=== PATIENT | female | born 1980 | race Caucasian/White ===

== ENCOUNTER → 2016-07-18 | Outpatient (CLI) | payer SELFPAY ==
[~2016-07-18] MED LIST: ACHD5005 PO; AMOX500C2 PO; ANTIDEPRESSANT; CLIN300C3 PO; CLON0.5T PO; CYCL10TA9 PO; KETO75CA PO; MUSCLE RELAXER; NAPR-243 PO; NITR-65 PO; ONDA8TAB9 PO; ONDAN4ODT PO; ORPH100T PO; PREN1TAB39 PO; PRM25T PO; TRAM50TA2 PO; TRM50T PO; [UNRECOGNIZED DRUG - REMARK]
--- NOTE | 2016-07-18 08:21 | Diagnostic Imaging Report ---
PROCEDURE: US abdomen complete. TECHNIQUE: Multiple real-time grayscale images were obtained over the abdomen in various projections. INDICATION: Right upper quadrant pain. FINDINGS: The pancreas is largely obscured by bowel gas. The liver is fairly homogeneous with no focal lesion seen. Hepatopetal flow in the portal vein is noted. The gallbladder demonstrates no stones or wall thickening. No pericholecystic fluid. The CBD is 5 mm in caliber. The spleen is 11.6 cm in length. The abdominal aorta and IVC are normal in caliber. The right kidney is 11.5 and the left kidney is 11.9 cm in length. No hydronephrosis. There is no fluid collection or ascites seen. IMPRESSION: Unremarkable exam. Dictated by: Dictated on workstation # [id number]
== END ==
LOC: RAD 07:26
PROVIDERS: ATTEND Nurse Practitioner Family
DX: R10.11 Right upper quadrant pain (principal)
CPT/HCPCS: 76700

== ENCOUNTER 2018-05-09 01:18 | Emergency (ER) | payer SELFPAY ==
[~2018-05-09] VITALS: Ht 172.7 cm; Wt 104.3 kg
--- OUTSIDE RECORDS SUMMARY | 2018-05-09 01:24 | XMS REPORT ---
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 78665624 Problem Major depressive disorder, recurrent, moderate F33.1 Active 745616815 Problem Panic disorder F41.0 Active 144239608 Problem Chronic migraine without aura without status migrainosus, not intractable G43.709 Active 189813887 Problem Affective disorder F39 Active 05387340 Problem Anxiety state, unspecified F41.1 Active 600303600 ALLERGIES No Information SOCIAL HISTORY Never Assessed PLAN OF CARE VITAL SIGNS MEDICATIONS No Known Medications RESULTS No Results PROCEDURES No Known procedures IMMUNIZATIONS No Known Immunizations MEDICAL (GENERAL) HISTORY Type Description Date Medical History asthma Medical History headache Medical History anemia Medical History sciatica Medical History Controlled Violation [facility] 2014 Medical History "post seizure" Surgical History appendectomy 11/2013 Surgical History tubal ligation 06/2012 Surgical History section x2 Surgical History dental surgery for jock jaw 2006
--- OUTSIDE RECORDS SUMMARY | 2018-05-09 01:24 | XMS REPORT ---
Author Author Mima Miller Organization [facility] Address [address] [place] [address] Care Team Providers Care Supervisor Pipeline Maintenance Name Role Phone Mima Miller Unavailable PROBLEMS Unknown Problems ALLERGIES Substance Reaction Event Type Date Status seasonal Unknown Non Drug Allergy Nov, Active ENCOUNTERS Encounter Location Date Diagnosis [facility] [address], [place] [id number] Nov, Syncope, unspecified syncope type R55 IMMUNIZATIONS No Known Immunizations SOCIAL HISTORY Never Assessed REASON FOR VISIT Physical PLAN OF CARE Activity Details Follow Up prn Reason: VITAL SIGNS Respiratory Rate 16 /min 2017-12-04 Temperature 98.4 degrees Fahrenheit 2017-12-04 BMI 35.73 kg/m2 2017-12-04 Height 68 in 2017-12-04 Weight 235 lbs 2017-12-04 Blood pressure systolic 116 mm Hg 2017-12-04 Blood pressure diastolic 76 mm Hg 2017-12-04 MEDICATIONS No Known Medications RESULTS No Results PROCEDURES Procedure Date Ordered Result Body Site ECG RECORDING 2017-12-04 sinus tach, HR 105 ELECTROCARDIOGRAM COMPLETE ELECTROCARDIOGRAM, ROUTINE ECG WITH AT LEAST 12 LEADS; WITH INTERPRETATION AND REPORT Dec 04, 2017 INSTRUCTIONS MEDICATIONS ADMINISTERED No Known Medications MEDICAL (GENERAL) HISTORY Type Description Date Surgical History c section x 2 Surgical History appendectomy Surgical History lock jaw - tooth extraction Hospitalization History child x 2
--- OUTSIDE RECORDS SUMMARY | 2018-05-09 01:24 | XMS REPORT ---
Author Author JUAN CARLOS CONDE Organization Unknown Address [address] [place] [address] Care Team Providers Care Single Pass Soil Stabilizer Operator Name Role Phone MARGARET BOWEN Unavailable AIMEEPAULAMAIAEN Unavailable Problems Problem SNOMED Onset Date Resolved Date Status Review of medication 184055237 Active Mental health impairment 901330612 Active Recurrent major depressive episodes, moderate 165335787 Active Anxiety disorder 581506693 Active Allergies, Adverse Reactions NA Care Plan Goal Instructions Client will be functioning more independently with supports and have a life worth living. Engage with treatment team to build rapport. Learn and practice coping skills to reduce symptoms and improve functioning. The following Services will be utilized 1 - 3 times until goal is reached: Improve and maintain functioning through medical psychiatric services. Initial Psychiatric Evaluation, Ongoing medication monitoring and management, Case Conference with multidisciplinary members of the [facility] team as indicated, and/or Collaboration and coordination with outside medical providers as indicated by providing the following services: 10453 interactive complexity 88630 psychiatric diagnostic eval w/ meds 84297 30 min psychotherapy add-on 17176 45 [place] [address] 60 min psychotherapy add-on 18326 med injection 61735 New Patient E&M (level 1) 67564 New Patient E&M (level 2) 55327 New Patient E&M (level 3) 84572 New patient E& M (level 4) 39661 New Patient E&M (level 5) 19272 Established Patient E&M ( level 1) 16246 Established Patient E&M (level 2) 32132 Established Patient E&M (level 3) 37318 Established Patient E&M (level 4) 20695 Established Patient E& M (level 5) 9935x prolonged service code 96084 case conference w/o clt & fam w / [place] 97121 case conference w/o shukri espinoza/ H0038 Peer Support Karlene Medications Medication Code Dose,Form,Route,Freq Start Date End Date KEEP ELHAM LEWIS...NO CLARISA, CECY, OR STIM FLUoxetine HCl - 10 MG ORAL Capsule 978541 Take one (1) Capsule Daily Divalproex Sodium - 250 MG ORAL Tablet, Delayed Release 6063326 Take one (1) Tablet, Delayed Release Twice a Day clonazePAM - 0.5 MG ORAL Tablet 045810 Take one (1) Tablet Once a Day, As Necessary Lab Results NA Encounters Date Time Service Code Provider 01:37:00 pm JUAN CARLOS CONDE 02:57:00 pm JUAN CARLOS CONDE Family History Functional Status NA Immunizations NA Vital Signs Date Time BP Pulse Temp Height Weight BMI 02:06:00 pm 126 over 85 76 bpm 68 in 222 lbs 33.8 kg/m^2 Social History Date Smoking Status SNOMED Code Never Smoked [id number] Hospital Discharge Instructions NA Hospital Discharge medications Date Medication Dose, Form, Route, Freq Code KEEP ELHAM LEWIS...NO CLARISA, CECY, OR STIM Instructions * Not Applicable Procedures NA Purpose Electronic Copy
--- OUTSIDE RECORDS SUMMARY | 2018-05-09 01:24 | XMS REPORT ---
Author Author JUAN CARLOS CONDE Organization Unknown Address [address] [place] [address] Care Team Providers Care Plier Worker Name Role Phone MARGARET BOWEN Unavailable ELTONVICKIJUAN CARLOS Unavailable Problems Problem SNOMED Onset Date Resolved Date Status Review of medication 231478072 Active Mental health impairment 981056777 Active Recurrent major depressive episodes, moderate 572561532 Active Anxiety disorder 199607678 Active Allergies, Adverse Reactions NA Care Plan Goal Instructions Client will be functioning more independently with supports and have a life worth living. ADULT CASE MANAGEMENT SERVICE BUNDLE - Provide the following services 1-3 times each week: + 27489 Case Conf w/Clt nn-Physician + 44007 Case Conf w/o clt + family w/MD + 69187 Case Conf no Clt, no MD, w/QMHP + [id number] CPST Adult + [id number] Strength Based Case Client will be functioning more independently with supports and have a life worth living. ADULT CASE MANAGEMENT SERVICE BUNDLE - Provide the following services 1-3 times each week: + 53311 Case Conf w/Clt nn-Physician + 50309 Case Conf w/o clt + family w/MD + 81890 Case Conf no Clt, no MD, w/QMHP + [id number] CPST Adult + [id number] Strength Based Case Mgmt + T1017 TCM - Targeted Case Management Improve and maintain functioning through medical psychiatric services. Initial Psychiatric Evaluation, Ongoing medication monitoring and management , Case Conference with multidisciplinary members of the [facility] team as indicated, and/or Collaboration and coordination with outside medical providers as indicated by providing the following services: 40782 interactive complexity 83994 psychiatric diagnostic eval w/ meds 77481 30 min psychotherapy add-on 08944 45 [place] [address] 60 min psychotherapy add-on 86366 med injection 93513 New Patient E&M (level 1) 37173 New Patient E&M (level 2) 02764 New Patient E&M (level 3) 82794 New patient E&M (level 4) 61928 New Patient E&M (level 5) 65056 Established Patient E&M (level 1) 61383 Established Patient E&M (level 2) 76674 Established Patient E&M (level 3) 83353 Established Patient E&M (level 4) 42736 Established Patient E&M (level 5 ) 9935x prolonged service code 07013 case conference w/o clt & fam w/ 14466 case conference w/o shukri w/ H0038 Peer Support Karlene Medications Medication Code Dose,Form,Route,Freq Start Date End Date KEEP KLON LOW...NO CLARISA, CECY, OR STIM FLUoxetine HCl - 10 MG ORAL Capsule 250312 Take one (1) Capsule Daily Divalproex Sodium - 250 MG ORAL Tablet, Delayed Release 4220841 Take one (1) Tablet, Delayed Release Twice a Day clonazePAM - 0.5 MG ORAL Tablet 19740514 Take one (1) Tablet Once a Day, As Necessary FLUoxetine HCl - 20 MG ORAL Capsule 172825 Take one (1) Capsule Daily Divalproex Sodium - 250 MG ORAL Tablet, Delayed Release 5588287 Take three (3) Tablets, Delayed Release At Bedtime clonazePAM - 0.5 MG ORAL Tablet 599690 Take one (1) Tablet Twice a Day, As Necessary Divalproex Sodium - 250 MG ORAL Tablet, Delayed Release 8692564 Take three (3) Tablets, Delayed Release At Bedtime clonazePAM - 0.5 MG ORAL Tablet 650112 Take one (1) Tablet Three Times a Day, As Necessary Lab Results NA Encounters Date Time Service Code Provider 01:37:00 pm JUAN CARLOS CONDE 02:57:00 pm JUAN CARLOSMAUREEN BILLMICHELL Family History Functional Status NA Immunizations NA Vital Signs Date Time BP Pulse Temp Height Weight BMI 03:24:00 pm 123 over 84 82 bpm 215 lbs 05:23:00 pm 121 over 85 105 bpm 02:06:00 pm 126 over 85 76 bpm 68 in 222 lbs 33.8 kg/m^2 Social History NA Hospital Discharge Instructions NA Hospital Discharge medications Date Medication Dose, Form, Route, Freq Code KEEP KLON LOW...NO CLARISA, CECY, OR STIM Instructions * Not Applicable Procedures Date Procedure Code Type Code Provider Volatile drug screen (procedure) SNOMED CT 115905200 Purpose Electronic Copy
--- OUTSIDE RECORDS SUMMARY | 2018-05-09 01:24 | XMS REPORT ---
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 62614107 Problem Major depressive disorder, recurrent, moderate F33.1 Active 044257460 Problem Panic disorder F41.0 Active 054087413 Problem Chronic migraine without aura without status migrainosus, not intractable G43.709 Active 641416086 Problem Affective disorder F39 Active 78049519 Problem Anxiety state, unspecified F41.1 Active 700486867 ALLERGIES Substance Reaction Event Type Date Status Doxepin HCl Unknown Drug Allergy Apr, Active Abilify Unknown Drug Allergy Apr, Active SOCIAL HISTORY No smoking Hx information available PLAN OF CARE Activity Details Follow Up 4 Weeks Reason:pierson/pain VITAL SIGNS Height 67 in 2016-04-25 Weight 219.1 lbs 2016-04-25 Temperature 99.5 degrees Fahrenheit 2016-04-25 Heart Rate 90 bpm 2016-04-25 Respiratory Rate 20 2016-04-25 BMI 34.31 kg/m2 2016-04-25 Blood pressure systolic 118 mmHg 2016-04-25 Blood pressure diastolic 84 mmHg 2016-04-25 MEDICATIONS Medication Instructions Dosage Frequency Start Date End Date Duration Status Indomethacin 25 MG Orally Twice a day 1 capsule with food or milk 12h Apr, Active Topamax 50 mg Orally Twice a day 1/2 tablet bid x 7 days then 1 am and 1/2 pm x 7 days then 1 bid 12h Apr, 30 day(s) Active RESULTS Name Result Date Reference Range TSH 2016-04-25 TSH 1.020 0.450-4.500 CBC 2016-04-25 WBC 5.8 3.4-10.8 RBC 4.74 3.77-5.28 Hemoglobin 11.2 11.1-15.9 Hematocrit 37.4 34.0-46.6 MCV 79 79-97 MCH 23.6 26.6-33.0 MCHC 29.9 31.5-35.7 RDW 14.5 12.3-15.4 Platelets 328 150-379 Neutrophils 66 Lymphs 25 Monocytes 7 Eos 1 Basos 1 Neutrophils (Absolute) 3.8 1.4-7.0 Lymphs (Absolute) 1.5 0.7-3.1 Monocytes(Absolute) 0.4 0.1-0.9 Eos (Absolute) 0.0 0.0-0.4 Baso (Absolute) 0.0 0.0-0.2 Immature Granulocytes 0 Immature Grans (Abs) 0.0 0.0-0.1 ESR/SED RATE 2016-04-25 Sedimentation Rate-Westergren 11 0-32 CRP 2016-04-25 C-Reactive Protein, Quant 2.8 0.0-4.9 CMP 2016-04-25 Glucose, Serum 110 65-99 BUN 10 6-20 Creatinine, Serum 0.75 0.57-1.00 eGFR If NonAfricn Am 104 >59 eGFR If Africn Am 120 >59 BUN/Creatinine Ratio 13 8-20 Sodium, Serum 139 134-144 Potassium, Serum 4.2 3.5-5.2 Chloride, Serum 100 96-106 Carbon Dioxide, Total 22 18-29 Calcium, Serum 9.0 8.7-10.2 Protein, Total, Serum 7.0 6.0-8.5 Albumin, Serum 4.4 3.5-5.5 Globulin, Total 2.6 1.5-4.5 A/G Ratio 1.7 1.1-2.5 Bilirubin, Total <0.2 0.0-1.2 Alkaline Phosphatase, S 53 39-117 AST (SGOT) 12 0-40 ALT (SGPT) 9 0-32 Xray : Spine, Lumbar 2-3 views (IN HOUSE) 2016-04-25 Xray : Knee, Right 3 views (IN HOUSE) 2016-04-25 PROCEDURES Procedure Date Ordered Related Diagnosis Body Site X-RAY EXAM OF LOWER SPINE Apr 25, 2016 X-RAY EXAM OF KNEE, 3 Apr 25, 2016 Office Visit, Est Pt., Level 4 Apr 25, 2016 C-REACTIVE PROTEIN Apr 25, 2016 VENIPUNCT, ROUTINE* Apr 25, 2016 COMPLETE CBC W/AUTO DIFF WBC Apr 25, 2016 COMPREHEN METABOLIC PANEL Apr 25, 2016 RBC SED RATE, AUTOMATED Apr 25, 2016 ASSAY THYROID STIM HORMONE Apr 25, 2016 IMMUNIZATIONS No Known Immunizations
--- OUTSIDE RECORDS SUMMARY | 2018-05-09 01:24 | XMS REPORT ---
Author Author JUAN CARLOS CONDE [facility] Address [address] [place] [address] Care Team Providers Care Equipment Sterilizer Name Role Phone MARGARET BOWEN Unavailable LINDSAY POWERS Unavailable JUAN CARLOS CONDE Unavailable Problems Problem SNOMED Onset Date Resolved Date Status Review of medication 537969408 Active Mental health impairment 653674237 Active Recurrent major depressive episodes, moderate 184695771 Active Anxiety disorder 373025285 Active Adjustment disorder with anxious mood 41108996 Active Allergies, Adverse Reactions NA Care Plan Goal Instructions Client will be functioning more independently with supports and have a life worth living. ADULT THERAPY SERVICE BUNDLE - Provide the following services 1-3 times each week: + 40642 Psychotherapy, 16-37 Minutes + 68282 Psychotherapy, 38-52 Minutes + 64540 Psychotherapy, 53+ Minutes + 85460 Psychotherapy for Crisis 31-74 Minutes + 99190 Each Add'l 30 Min Crisis Psychotherapy + 63360 Group Therapy + 62001 Case Conf w/Clt NN-Physician + 10009 Case Conf w/o Clt + Fam w/MD + 78304 Case Conf w/o Clt w/MD Client will be functioning more independently with supports and have a life worth living. This will be done through Cognitive Behavioral Therapy, Behavioral Activation Therapy, Motivational Interviewing, Wellness Self Management, Solution-Focused Therapy, and Dialectical Behavior Therapy, and other evidence-based treatments. The following services will be utilized one to two times per week to assist client in achieving goal(s): Client will be functioning more independently with supports and have a life worth living. ADULT THERAPY SERVICE BUNDLE - Provide the following services 1-3 times each week: + 70246 Psychotherapy, 16-37 Minutes + 67282 Psychotherapy, 38-52 Minutes + 59876 Psychotherapy, 53+ Minutes + 42224 Psychotherapy for Crisis 31-74 Minutes + 06485 Each Add'l 30 Min Crisis Psychotherapy + 78098 Group Therapy + 81750 Case Conf w/Clt NN-Physician + 46800 Case Conf w/o Clt + Fam w/MD + 97959 Case Conf w/o Clt w/MD + [id number] Psychosocial Adult Group + T1017 TCM - Targeted Case Management Improve and maintain functioning through medical psychiatric services. Initial Psychiatric Evaluation, Ongoing medication monitoring and management , Case Conference with multidisciplinary members of the [facility] team as indicated, and/or Collaboration and coordination with outside medical providers as indicated by providing the following services: 84090 interactive complexity 14925 psychiatric diagnostic eval w/ meds 21463 30 min psychotherapy add-on 21717 45 [place] [address] 60 min psychotherapy add-on 28745 med injection 05380 New Patient E&M (level 1) 13459 New Patient E&M (level 2) 33570 New Patient E&M (level 3) 22805 New patient E&M (level 4) 17729 New Patient E&M (level 5) 20633 Established Patient E&M (level 1) 07323 Established Patient E&M (level 2) 75237 Established Patient E&M (level 3) 64548 Established Patient E&M (level 4) 49656 Established Patient E&M (level 5 ) 9935x prolonged service code 29082 case conference w/o shukri & eva espinoza/ 69520 case conference w/o shukri w/ H0038 Peer Support Karlene Medications Medication Code Dose,Form,Route,Freq Start Date End Date KEEP KLON LOW...NO CLARISA, CECY, OR STIM FLUoxetine HCl - 10 MG ORAL Capsule 258504 Take one (1) Capsule Daily Divalproex Sodium - 250 MG ORAL Tablet, Delayed Release 6373511 Take one (1) Tablet, Delayed Release Twice a Day clonazePAM - 0.5 MG ORAL Tablet 691414 Take one (1) Tablet Once a Day, As Necessary FLUoxetine HCl - 20 MG ORAL Capsule 533301 Take one (1) Capsule Daily Divalproex Sodium - 250 MG ORAL Tablet, Delayed Release 5593279 Take three (3) Tablets, Delayed Release At Bedtime clonazePAM - 0.5 MG ORAL Tablet 077854 Take one (1) Tablet Twice a Day, As Necessary Divalproex Sodium - 250 MG ORAL Tablet, Delayed Release 7321228 Take three (3) Tablets, Delayed Release At Bedtime clonazePAM - 0.5 MG ORAL Tablet 19740514 Take one (1) Tablet Three Times a [...] Date Smoking Status SNOMED Code Never Smoked 846193878 Hospital Discharge Instructions NA Hospital Discharge medications Date Medication Dose, Form, Route, Freq Code KEEP KLON LOW...NO CLARISA, CECY, OR STIM Instructions * Not Applicable Procedures Date Procedure Code Type Code Provider Volatile drug screen (procedure) SNOMED CT 396350472 Purpose Electronic Copy
--- OUTSIDE RECORDS SUMMARY | 2018-05-09 01:24 | XMS REPORT | Clinical Summary ---
Author Author [facility] Organization [facility] Address Unknown Phone Unavailable Care Team Providers Care Vice President Sales And Marketing Name Role Phone PCP Unavailable Allergies No Known Allergies Current Medications Prescription Sig. Disp. Refills Start End Date Status Date albuterol (PROVENTIL HFA) Inhale 2 puffs every 6 Active 90 mcg/actuation HFA (six) hours as needed for inhaler wheezing. Active Problems No known active problems Social History Tobacco Use Types Packs/Day Years Used Date Never Smoker Smokeless Tobacco: Never Used Alcohol Use Drinks/Week oz/Week Comments Yes socially Sex Assigned at Date Recorded Not on file Last Filed Vital Signs Vital Sign Reading Time Taken Blood Pressure 147/82 09/23/2017 7:49 PM CDT Pulse 87 09/23/2017 7:49 PM CDT Temperature 36.8 C (98.3 F) 09/23/2017 7:49 PM CDT Respiratory Rate 16 09/23/2017 5:50 PM CDT Oxygen Saturation 100% 09/23/2017 7:49 PM CDT Inhaled Oxygen - - Concentration Weight 99.8 kg (220 lb) 09/02/2017 9:48 PM CDT Height 172.7 cm (5' 8") 09/02/2017 9:48 PM CDT Body Mass Index 33.45 09/02/2017 9:48 PM CDT Plan of Treatment Health Maintenance Due Date Last Done Comments Td # 1981 Cervical Cancer Screening 2002 via Pap Smear Influenza Vaccine (#1) 2018 Results Not on filefrom Last 3 Months
--- OUTSIDE RECORDS SUMMARY | 2018-05-09 01:24 | XMS REPORT ---
Author Author JUAN CARLOS CONDE Organization Unknown Address [address] [place] [address] Care Team Providers Care Ob Nurse Name Role Phone MARGARET BOWEN Unavailable AIMEEPAULAMAIAEN Unavailable Problems Problem SNOMED Onset Date Resolved Date Status Review of medication 370586358 Active Mental health impairment 712501980 Active Recurrent major depressive episodes, moderate 824727615 Active Anxiety disorder 768511600 Active Allergies, Adverse Reactions NA Care Plan [...] as indicated by providing the following services: 81984 interactive complexity 57387 psychiatric diagnostic eval w/ meds 22372 30 min psychotherapy add-on 17457 45 [place] [address] 60 min psychotherapy add-on 97630 med injection 61614 New Patient E&M (level 1) 42131 New Patient E&M (level 2) 99433 New Patient E&M (level 3) 70762 New patient E& M (level 4) 88401 New Patient E&M (level 5) 44379 Established Patient E&M ( level 1) 36736 Established Patient E&M (level 2) 84806 Established Patient E&M (level 3) 65828 Established Patient E&M (level 4) 41464 Established Patient E& M (level 5) 9935x prolonged service code 73662 case conference w/o clt & fam w / [place] [address] case conference w/o clt alexis/ H0038 Peer Support Karlene Date Time Service Provider Location 05:30:00 pm [facility]SE[facility] 130 Medications Medication Code Dose,Form,Route,Freq Start Date End Date KEEP KLON LOW...NO CLARISA, CECY, OR STIM FLUoxetine HCl - 10 MG ORAL Capsule 873052 Take one (1) Capsule Daily Divalproex Sodium - 250 MG ORAL Tablet, Delayed Release 8690966 Take one (1) Tablet, Delayed Release Twice a Day clonazePAM - 0.5 MG ORAL Tablet 135257 Take one (1) Tablet Once a Day, As Necessary FLUoxetine HCl - 20 MG ORAL Capsule 241428 Take one (1) Capsule Daily Divalproex Sodium - 250 MG ORAL Tablet, Delayed Release 4450742 Take three (3) Tablets, Delayed Release At Bedtime clonazePAM - 0.5 MG ORAL Tablet 200634 Take one (1) Tablet Twice a Day, As Necessary Lab Results NA Encounters Date Time Service Code Provider 01:37:00 pm JUAN CARLOS CONDE 02:57:00 pm JUAN CARLOS CONDE Family History Functional Status NA Immunizations NA Vital Signs Date Time BP Pulse Temp Height Weight BMI 05:23:00 pm 121 over 85 105 bpm 02:06:00 pm 126 over 85 76 bpm 68 in 222 lbs 33.8 kg/m^2 Social History Date Smoking Status SNOMED Code Never Smoked 581264027 Hospital Discharge Instructions NA Hospital Discharge medications Date Medication Dose, Form, Route, Freq Code KEEP KLON LOW...NO CLARISA, CECY, OR STIM Instructions * Not Applicable Procedures Date Procedure Code Type Code Provider Volatile drug screen (procedure) SNOMED CT [id number] Purpose Electronic Copy
--- OUTSIDE RECORDS SUMMARY | 2018-05-09 01:25 | XMS REPORT ---
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 Active 85647982 Problem Major depressive disorder, recurrent, moderate F33.1 Active 233213018 Problem Panic disorder F41.0 Active 645424036 Problem Chronic migraine without aura without status migrainosus, not intractable G43.709 Active 778940491 Problem Affective disorder F39 Active 66529557 Problem Anxiety state, unspecified F41.1 Active 140630164 ALLERGIES Substance Reaction Event Type Date Status Topamax Unknown Drug Allergy May, Active Doxepin HCl Unknown Drug Allergy May, Active Abilify Unknown Drug Allergy May, Active SOCIAL HISTORY Never Assessed PLAN OF CARE Activity Details Follow Up 4 Weeks Reason: VITAL SIGNS Height 67.7 in 2016-05-13 Weight 225.0 lbs 2016-05-13 Heart Rate 68 bpm 2016-05-13 Respiratory Rate 20 2016-05-13 BMI 34.51 kg/m2 2016-05-13 Blood pressure systolic 139 mmHg 2016-05-13 Blood pressure diastolic 75 mmHg 2016-05-13 MEDICATIONS Medication Instructions Dosage Frequency Start Date End Date Duration Status Indomethacin 25 MG Orally Twice a day 1 capsule with food or milk 12h Apr, Active Latuda 40 mg Orally Once a day 1 tablet with food 24h May, 30 day(s) Active RESULTS Name Result Date Reference Range URINE DRUG SCREEN (IN HOUSE) 2016-05-13 Lot # [id number] Exp date Control + COCAINE Negative AMPH Negative MTD Negative THC Negative OPIATE Negative BENZO Positive PCP Negative BAR Negative OXY Negative MAMP Negative TCA Negative BUP Negative MDMA Negative LIPID PANEL 2016-05-13 Cholesterol, Total 193 100-199 Triglycerides 140 0-149 HDL Cholesterol 50 >39 VLDL Cholesterol Johnson 28 5-40 LDL Cholesterol Calc 115 0-99 Comment: PROCEDURES Procedure Date Ordered Result Body Site DRUG TEST PRSMV DIR OPT OBS May 13, 2016 LIPID PANEL May 13, 2016 VENIPUNCT, ROUTINE* May 13, 2016 IMMUNIZATIONS No Known Immunizations MEDICAL (GENERAL) HISTORY Type Description Date Medical History asthma Medical History headache Medical History anemia Medical History sciatica Medical History Controlled Violation [facility] 2014 Medical History "post seizure" Surgical History appendectomy 11/2013 Surgical History tubal ligation 06/2012 Surgical History section x2 Surgical History dental surgery for jock jaw 2006
--- OUTSIDE RECORDS SUMMARY | 2018-05-09 01:25 | XMS REPORT ---
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
--- OUTSIDE RECORDS SUMMARY | 2018-05-09 01:25 | XMS REPORT ---
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 Active 01783008 Problem Major depressive disorder, recurrent, moderate F33.1 Active 852227555 Problem Panic disorder F41.0 Active 657592126 Problem Chronic migraine without aura without status migrainosus, not intractable G43.709 Active 417134027 Problem Affective disorder F39 Active 96128448 Problem Anxiety state, unspecified F41.1 Active 935429964 ALLERGIES No Known Allergies SOCIAL HISTORY No smoking Hx information available PLAN OF CARE Activity Details Follow Up prn Reason: VITAL SIGNS MEDICATIONS No Known Medications RESULTS No Results PROCEDURES Procedure Date Ordered Related Diagnosis Body Site Psychotherapy, patient &/family, 30 minutes, established patient Apr 15, 2016 IMMUNIZATIONS No Known Immunizations
--- OUTSIDE RECORDS SUMMARY | 2018-05-09 01:25 | XMS REPORT ---
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 Active 14713980 Problem Major depressive disorder, recurrent, moderate F33.1 Active 788442770 Problem Panic disorder F41.0 Active 808127911 Problem Chronic migraine without aura without status migrainosus, not intractable G43.709 Active 204251686 Problem Affective disorder F39 Active 03520166 Problem Anxiety state, unspecified F41.1 Active 685972631 ALLERGIES No Information SOCIAL HISTORY Never Assessed PLAN OF CARE VITAL SIGNS MEDICATIONS No Known Medications RESULTS No Results PROCEDURES No Known procedures IMMUNIZATIONS No Known Immunizations MEDICAL (GENERAL) HISTORY Type Description Date Medical History asthma Medical History headache Medical History anemia Medical History sciatica Medical History Controlled Violation [facility] 2014 Medical History "post seizure" Surgical History appendectomy 11/2013 Surgical History tubal ligation 06/2012 Surgical History section x2 Surgical History dental surgery for jock jaw 2006
--- OUTSIDE RECORDS SUMMARY | 2018-05-09 01:25 | XMS REPORT ---
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 Active 00930969 Problem Major depressive disorder, recurrent, moderate F33.1 Active 135774247 Problem Panic disorder F41.0 Active 123584290 Problem Chronic migraine without aura without status migrainosus, not intractable G43.709 Active 252782571 Problem Affective disorder F39 Active 91309045 Problem Anxiety state, unspecified F41.1 Active 259361676 ALLERGIES No Known Allergies SOCIAL HISTORY No smoking Hx information available PLAN OF CARE VITAL SIGNS MEDICATIONS Medication Instructions Dosage Frequency Start Date End Date Duration Status Latuda 40 mg Orally Once a day 1 tablet with food 24h May, 90 days Active RESULTS No Results PROCEDURES No Known procedures IMMUNIZATIONS No Known Immunizations
--- OUTSIDE RECORDS SUMMARY | 2018-05-09 01:28 | XMS REPORT | Continuity of Care Document ---
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 AN GEN ANXIETY 07/29/2011 JESSICA CABRERA PHD 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 07/29/2011 RICK ALBERTO, JESSICA Sabillon 300.02 AN GEN ANXIETY 07/29/2011 RICK ALBERTO, JESSICA Sabillon 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 07/29/2011 RICK ALBERTO, JESSICA A 300.02 AN GEN ANXIETY 07/29/2011 RICK ALBERTO, JESSICA A 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 07/29/2011 RICK ALBERTO, JESSICA A 300.02 AN GEN ANXIETY 07/29/2011 BRIANDA LOUIS APRN 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 07/29/2011 BRIANDA LOUIS APRN 300.02 AN GEN ANXIETY 07/29/2011 RICK ALBERTO, JESSICA A 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 07/29/2011 RICK ALBERTO, JESSICA A 300.02 AN GEN ANXIETY 07/29/2011 DOMINIC BAL MD 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 07/29/2011 DOMINIC BAL MD 300.02 AN GEN ANXIETY 07/29/2011 DOMINIC BAL MD 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 07/29/2011 DOMINIC BAL MD 300.02 AN GEN ANXIETY 07/29/2011 RICK ALBERTO, JESSICA Sabillon 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 07/29/2011 RICK ALBERTO, JESSICA A 300.02 AN GEN ANXIETY 07/29/2011 BRIANDA LOUIS APRN 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 07/29/2011 BRIANDA LOUIS APRN 300.02 AN GEN ANXIETY 07/29/2011 NORA LEONARDO DO K 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 07/29/2011 NORA LEONARDO DO K 300.02 AN GEN ANXIETY 07/29/2011 TREVOR LEONARDO DOA K 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 07/29/2011 NORA LEONARDO DO K 300.02 AN GEN ANXIETY 07/29/2011 NORA LEONARDO DO K 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 07/29/2011 NORA LEONARDO DO K 300.02 AN GEN ANXIETY 07/29/2011 BALTA PEDRAZA MD 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 07/29/2011 BALTA PEDRAZA MD 300.02 AN GEN ANXIETY 07/29/2011 JAVIER DE DIOS APRNETTE 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 07/29/2011 VA COOPER MISA 300.02 AN GEN ANXIETY 07/29/2011 VA COOPER MISA 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 07/29/2011 VA COOPER MISA 300.02 AN GEN ANXIETY 07/29/2011 JEREMIE ALEX DDS 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 07/29/2011 JEREMIE ALEX DDS 300.02 AN GEN ANXIETY 07/29/2011 VA COOPER MISA 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 07/29/2011 VA COOPER MISA 300.02 AN GEN ANXIETY 07/29/2011 VA COOPER MISA 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 07/29/2011 VA RIVERAN MISA 300.02 AN GEN ANXIETY 07/29/2011 MADL MUSIC JOURNALIST, DARIAN L 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 07/29/2011 MADL MUSIC JOURNALIST, DARIAN L 300.02 AN GEN ANXIETY 07/29/2011 LEONARDO DO, NORA K 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 07/29/2011 LEONARDO DO, NORA K 300.02 AN GEN ANXIETY 07/29/2011 LEONARDO DO, NORA K 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 07/29/2011 LEONARDO DO, NORA K 300.02 AN GEN ANXIETY 07/29/2011 LEONARDO DO, NORA K 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 07/29/2011 LEONARDO DO NORA K 300.02 AN GEN ANXIETY 07/29/2011 VA COOPER MISA 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 07/29/2011 VA COOPER MISA 300.02 AN GEN ANXIETY 07/29/2011 MADL MUSIC JOURNALIST, DARIAN L 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 07/29/2011 MADL MUSIC JOURNALIST, DARIAN L 300.02 AN GEN ANXIETY 07/29/2011 RICK PHD, JESSICA A 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 07/29/2011 RICK ALBERTO, JESSICA A 300.02 AN GEN ANXIETY 07/29/2011 MADL MUSIC JOURNALIST, DARIAN L 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 07/29/2011 MADL MUSIC JOURNALIST, DARIAN L 300.02 AN GEN ANXIETY 07/29/2011 VA COOPER MISA 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 07/29/2011 VA COOPER MISA 300.02 AN GEN ANXIETY 07/29/2011 RICK ALBERTO, JESSICA A 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 07/29/2011 RICK ALBERTO, JESSICA A 300.02 AN GEN ANXIETY 07/29/2011 VA COOPER MISA 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 07/29/2011 MISA DE DIOS APRN 300.02 AN GEN ANXIETY 07/29/2011 NATHALY HELTON APRNWNYA L 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 07/29/2011 XU HELTON APRNNYA L 300.02 AN GEN ANXIETY 07/29/2011 FREDERIC BARRIENTOS APRNINA R 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 07/29/2011 FLOYD COOPER ANGEL R 300.02 AN GEN ANXIETY 07/29/2011 XU HELTON APRNNYA L 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 07/29/2011 DANIE RIVREAMally DARIAN L 300.02 AN GEN ANXIETY 07/29/2011 MISA DE DIOS APRN 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 07/29/2011 MISA DE DIOS APRN 300.02 AN GEN ANXIETY 07/29/2011 DANIE COOPER DARIAN L 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 07/29/2011 EVASandor RIVERAMally DARIAN L 300.02 AN GEN ANXIETY 07/29/2011 MISA DE DIOS APRN 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 07/29/2011 MISA DE DIOS APRN 300.02 AN GEN ANXIETY 07/29/2011 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 07/29/2011 300.02 AN GEN ANXIETY 08/26/2011 BALBINA DELACRUZ APRN 462 Pharyngitis Acute 08/26/2011 BALBINA DELACRUZ APRN 724.2 BACK PAIN, LOWER 08/26/2011 462 Pharyngitis Acute 08/26/2011 724.2 BACK PAIN, LOWER 08/26/2011 462 Pharyngitis Acute 08/26/2011 724.2 BACK PAIN, LOWER 08/26/2011 462 Pharyngitis Acute 08/26/2011 724.2 BACK PAIN, LOWER 08/26/2011 462 Pharyngitis Acute 08/26/2011 724.2 BACK PAIN, LOWER 08/26/2011 462 Pharyngitis Acute 08/26/2011 724.2 BACK PAIN, LOWER 08/26/2011 462 Pharyngitis Acute 08/26/2011 724.2 BACK PAIN, LOWER 08/26/2011 JOAO ALBERT APRN A 462 Pharyngitis Acute 08/26/2011 JOAO ALBERT APRN A 724.2 BACK PAIN, LOWER 08/26/2011 BRIANDA LOUIS APRN 462 Pharyngitis Acute 08/26/2011 BRIANDA LOUIS APRN 724.2 BACK PAIN, LOWER 08/26/2011 RICK PHD, JESSICA A 462 Pharyngitis Acute 08/26/2011 BOERAVI PHD, JESSICA A 724.2 BACK PAIN, LOWER 08/26/2011 BOERAVI PHD, JESSICA A 462 Pharyngitis Acute 08/26/2011 BOERAVI PHD, JESSICA A 724.2 BACK PAIN, LOWER 08/26/2011 BOERAVI PHD, JESSICA A 462 Pharyngitis Acute 08/26/2011 BOERAVI PHD, JESSICA A 724.2 BACK PAIN, LOWER 08/26/2011 BRIANDA LOUIS APRN 462 Pharyngitis Acute 08/26/2011 BRIANDA LOUIS APRN 724.2 BACK PAIN, LOWER 08/26/2011 BOERAVI PHD, JESSICA A 462 Pharyngitis Acute 08/26/2011 BOERAVI PHD, JESSICA A 724.2 BACK PAIN, LOWER 08/26/2011 VALERIANO SEYMOUR, DOMINIC Iverson 462 Pharyngitis Acute 08/26/2011 VALERIANO SEYMOUR, DOMINIC Iverson 724.2 BACK PAIN, LOWER 08/26/2011 DOMINIC BAL MD 462 Pharyngitis Acute 08/26/2011 DOMINIC BAL MD 724.2 lower back pain 08/26/2011 BOERAVI PHD, JESSICA A 462 Pharyngitis Acute 08/26/2011 RICK PHD, JESSICA A 724.2 lower back pain 08/26/2011 BRIANDA LOUIS APRN 462 Pharyngitis Acute 08/26/2011 BRIANDA LOUIS APRN 724.2 lower back pain 08/26/2011 NORA LEONARDO DO 462 Pharyngitis Acute 08/26/2011 LEONARDO DO, NORA K 724.2 lower back pain 08/26/2011 LEONARDO DO, NORA K 462 Pharyngitis Acute 08/26/2011 LEONARDO DO, NORA K 724.2 lower back pain 08/26/2011 LEONARDO DO, NORA K 462 Pharyngitis Acute 08/26/2011 LEONARDO DO, NORA K 724.2 lower back pain 08/26/2011 BALTA PEDRAZA MD 462 Pharyngitis Acute 08/26/2011 BALTA PEDRAZA MD 724.2 lower back pain 08/26/2011 VA MUSIC JOURNALIST, MISA 462 Pharyngitis Acute 08/26/2011 VA MUSIC JOURNALIST, MISA 724.2 lower back pain 08/26/2011 VA MUSIC JOURNALIST, MISA 462 Pharyngitis Acute 08/26/2011 VA MUSIC JOURNALIST, MISA 724.2 lower back pain 08/26/2011 WHITE DDS, JEREMIE D 462 Pharyngitis Acute 08/26/2011 WHITE DDS, JEREMIE D 724.2 lower back pain 08/26/2011 VA MUSIC JOURNALIST, MISA 462 Pharyngitis Acute 08/26/2011 VA MUSIC JOURNALIST, MISA 724.2 lower back pain 08/26/2011 VA MUSIC JOURNALIST, MISA 462 Pharyngitis Acute 08/26/2011 VA MUSIC JOURNALIST, MISA 724.2 lower back pain 08/26/2011 MADL MUSIC JOURNALIST, DARIAN L 462 Pharyngitis Acute 08/26/2011 MADL MUSIC JOURNALIST, DARIAN L 724.2 lower back pain 08/26/2011 LEONARDO DO, NORA K 462 Pharyngitis Acute 08/26/2011 LEONARDO DO, NORA K 724.2 lower back pain 08/26/2011 LEONARDO DO, NORA K 462 Pharyngitis Acute 08/26/2011 LEONARDO DO, NORA K 724.2 lower back pain 08/26/2011 LEONARDO DO, NORA K 462 Pharyngitis Acute 08/26/2011 LEONARDO DO, NORA K 724.2 lower back pain 08/26/2011 VA MUSIC JOURNALIST, MISA 462 Pharyngitis Acute 08/26/2011 VA MUSIC JOURNALIST, MISA 724.2 lower back pain 08/26/2011 MADL MUSIC JOURNALIST, DARIAN L 462 Pharyngitis Acute 08/26/2011 MADL MUSIC JOURNALIST, DARIAN L 724.2 lower back pain 08/26/2011 RICK PHD, JESSICA A 462 Pharyngitis Acute 08/26/2011 RICK PHD, JESSICA A 724.2 lower back pain 08/26/2011 MADL MUSIC JOURNALIST, DARIAN L 462 Pharyngitis Acute 08/26/2011 MADL MUSIC JOURNALIST, DARIAN L 724.2 lower back pain 08/26/2011 VA MUSIC JOURNALIST, MISA 462 Pharyngitis Acute 08/26/2011 VA MUSIC JOURNALIST, MISA 724.2 lower back pain 08/26/2011 RICK PHD, JESSICA A 462 Pharyngitis Acute 08/26/2011 RICK PHD, JESSICA A 724.2 lower back pain 08/26/2011 VA MUSIC JOURNALIST, MISA 462 Pharyngitis Acute 08/26/2011 VA MUSIC JOURNALIST, MISA 724.2 lower back pain 08/26/2011 MADL MUSIC JOURNALIST, DARIAN L 462 Pharyngitis Acute 08/26/2011 MADL MUSIC JOURNALIST, DARIAN L 724.2 lower back pain 08/26/2011 FLOYD MUSIC JOURNALIST, ANGEL R 462 Pharyngitis Acute 08/26/2011 FLOYD MUSIC JOURNALIST, ANGEL R 724.2 lower back pain 08/26/2011 MADL MUSIC JOURNALIST, DARIAN L 462 Pharyngitis Acute 08/26/2011 MADL MUSIC JOURNALIST, DARIAN L 724.2 lower back pain 08/26/2011 VA MUSIC JOURNALIST, MISA 462 Pharyngitis Acute 08/26/2011 VA MUSIC JOURNALIST, MISA 724.2 lower back pain 08/26/2011 MADL MUSIC JOURNALIST, DARIAN L 462 Pharyngitis Acute 08/26/2011 MADL MUSIC JOURNALIST, DARIAN L 724.2 lower back pain 08/26/2011 VA MUSIC JOURNALIST, MISA 462 Pharyngitis Acute 08/26/2011 VA MUSIC JOURNALIST, MISA 724.2 lower back pain 08/26/2011 462 Pharyngitis Acute 08/26/2011 724.2 BACK PAIN, LOWER 08/28/2011 JAYME COOPER BALBINA R 296.89 MO BIPOLAR II 08/28/2011 296.89 MO BIPOLAR II 08/28/2011 296.89 MO BIPOLAR II 08/28/2011 296.89 MO BIPOLAR II 08/28/2011 296.89 MO BIPOLAR II 08/28/2011 296.89 MO BIPOLAR II 08/28/2011 296.89 MO BIPOLAR II 08/28/2011 JOAO ALBERT APRN 296.89 MO BIPOLAR II 08/28/2011 BRIANDA LOUIS APRN 296.89 MO BIPOLAR II 08/28/2011 RICK PHD, JESSICA Sabillon 296.89 MO BIPOLAR II 08/28/2011 RICK PHD, JESSICA Sabillon 296.89 MO BIPOLAR II 08/28/2011 RICK PHD, JESSICA A 296.89 MO BIPOLAR II 08/28/2011 BRIANDA LOUIS APRN 296.89 MO BIPOLAR II 08/28/2011 RICK PHD, JESSICA A 296.89 MO BIPOLAR II 08/28/2011 VALERIANO SEYMOUR, DOMINIC Iverson 296.89 MO BIPOLAR II 08/28/2011 VALERIANO SEYMOUR, DOMINIC Iverson 296.89 MO BIPOLAR II 08/28/2011 RICK ALBERTO, JESSICA Sbaillon 296.89 MO BIPOLAR II 08/28/2011 BRIANDA LOUIS APRN 296.89 MO BIPOLAR II 08/28/2011 NORA LEONARDO DO 296.89 MO BIPOLAR II 08/28/2011 NORA LEONARDO DO 296.89 MO BIPOLAR II 08/28/2011 NORA LEONARDO DO K 296.89 MO BIPOLAR II 08/28/2011 MILO SEYMOUR, BALTA 296.89 MO BIPOLAR II 08/28/2011 VA MUSIC JOURNALIST, MISA 296.89 MO BIPOLAR II 08/28/2011 VA MUSIC JOURNALIST, MISA 296.89 MO BIPOLAR II 08/28/2011 JEREMIE ALEX DDS 296.89 MO BIPOLAR II 08/28/2011 VA MUSIC JOURNALIST, MISA 296.89 MO BIPOLAR II 08/28/2011 VA MUSIC JOURNALIST, MISA 296.89 MO BIPOLAR II 08/28/2011 DARIAN HELTON APRN 296.89 MO BIPOLAR II 08/28/2011 LEONARDO NORA BOATENG K 296.89 MO BIPOLAR II 08/28/2011 LEONARDO DO, NORA K 296.89 MO BIPOLAR II 08/28/2011 LEONARDO DO, NORA K 296.89 MO BIPOLAR II 08/28/2011 VA MUSIC JOURNALIST, MISA 296.89 MO BIPOLAR II 08/28/2011 MADL MUSIC JOURNALIST, DARIAN L 296.89 MO BIPOLAR II 08/28/2011 RICK ALBERTO, JESSICA Sabillon 296.89 MO BIPOLAR II 08/28/2011 MADL MUSIC JOURNALIST, DARIAN L 296.89 MO BIPOLAR II 08/28/2011 VA MUSIC JOURNALIST, MISA 296.89 MO BIPOLAR II 08/28/2011 RICK PHD, JESSICA A 296.89 MO BIPOLAR II 08/28/2011 VA MUSIC JOURNALIST, MISA 296.89 MO BIPOLAR II 08/28/2011 MADL MUSIC JOURNALIST, DARIAN L 296.89 MO BIPOLAR II 08/28/2011 FLOYD COOPER ANGEL R 296.89 MO BIPOLAR II 08/28/2011 MADL MUSIC JOURNALIST, DARIAN L 296.89 MO BIPOLAR II 08/28/2011 VA MUSIC JOURNALIST, MISA 296.89 MO BIPOLAR II 08/28/2011 MADL MUSIC JOURNALIST, DARIAN L 296.89 MO BIPOLAR II 08/28/2011 VA MUSIC JOURNALIST, MISA 296.89 MO BIPOLAR II 08/28/2011 296.89 MO BIPOLAR II 11/24/2011 Ot 599.0 URIN TRACT INFECTION NOS 11/24/2011 Ot 640.03 THREATEN ABORT-ANTEPART 11/24/2011 Ot 646.63 INFECTION -ANTEPARTUM 11/24/2011 Ot 649.53 SPOTTING COMP , ANTEPARTUM COND 11/24/2011 Ot 651.03 TWIN -ANTEPART 11/24/2011 Ot 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, DICHORIONIC/DIAMNIOTIC (2 MERLENE 12/04/2011 Ot 643.93 VOMIT OF PG NOS-ANTEPART 12/04/2011 Ot 787.03 VOMITING ALONE 12/30/2011 BALBINA DELACRUZ APRN 729.1 FIBROMYALGIA 12/30/2011 729.1 FIBROMYALGIA 12/30/2011 729.1 FIBROMYALGIA 12/30/2011 729.1 FIBROMYALGIA 12/30/2011 729.1 FIBROMYALGIA 12/30/2011 729.1 FIBROMYALGIA 12/30/2011 729.1 FIBROMYALGIA 12/30/2011 JOAO ALBERT APRN 729.1 FIBROMYALGIA 12/30/2011 BRIANDA LOUIS APRN 729.1 FIBROMYALGIA 12/30/2011 RICK ALBERTO, JESSICA Sabillon 729.1 FIBROMYALGIA 12/30/2011 RICK ALBERTO, JESSICA Sabillon 729.1 FIBROMYALGIA 12/30/2011 RICK ALBERTO, JESSICA Sabillon 729.1 FIBROMYALGIA 12/30/2011 BRIANDA LOUIS APRN 729.1 FIBROMYALGIA 12/30/2011 RICK ALBERTO, JESSICA Sabillon 729.1 FIBROMYALGIA 12/30/2011 DOMINIC BAL MD 729.1 FIBROMYALGIA 12/30/2011 DOMINIC BAL MD 729.1 FIBROMYALGIA 12/30/2011 RICK ALBERTO, JESSICA Sabillon 729.1 FIBROMYALGIA 12/30/2011 BRIANDA LOUIS APRN 729.1 FIBROMYALGIA 12/30/2011 NORA LEONARDO DO 729.1 FIBROMYALGIA 12/30/2011 NORA LEONARDO DO 729.1 FIBROMYALGIA 12/30/2011 RTEVOR LEONARDO DOA K 729.1 FIBROMYALGIA 12/30/2011 BALTA PEDRAZA MD 729.1 FIBROMYALGIA 12/30/2011 MISA DE DIOS APRN 729.1 FIBROMYALGIA 12/30/2011 VA COOPER MISA 729.1 FIBROMYALGIA 12/30/2011 JEREMIE ALEX DDS 729.1 FIBROMYALGIA 12/30/2011 VABUD COOPER MISA 729.1 FIBROMYALGIA 12/30/2011 VA COOPER MISA 729.1 FIBROMYALGIA 12/30/2011 RAMON HETLON APRNA Sandor 729.1 FIBROMYALGIA 12/30/2011 LEONARDO TREVOR BOATENGA K 729.1 FIBROMYALGIA 12/30/2011 LEONARDO DO NORA K 729.1 FIBROMYALGIA 12/30/2011 TREVOR LEONARDO DOA K 729.1 FIBROMYALGIA 12/30/2011 VA COOPER MISA 729.1 FIBROMYALGIA 12/30/2011 RAMON HELTON APRNA L 729.1 FIBROMYALGIA 12/30/2011 RICK ALBERTO, JESSICA Sabillon 729.1 FIBROMYALGIA 12/30/2011 MADL MUSIC JOURNALIST, DARIAN L 729.1 FIBROMYALGIA 12/30/2011 VA MUSIC JOURNALIST, MISA 729.1 FIBROMYALGIA 12/30/2011 RICK ALBERTO, JESSICA Sabillon 729.1 FIBROMYALGIA 12/30/2011 VA MUSIC JOURNALIST, MISA 729.1 FIBROMYALGIA 12/30/2011 MADL MUSIC JOURNALIST, DARIAN L 729.1 FIBROMYALGIA 12/30/2011 FLOYD MUSIC JOURNALIST, ANGEL R 729.1 FIBROMYALGIA 12/30/2011 MADL MUSIC JOURNALIST, DARIAN L 729.1 FIBROMYALGIA 12/30/2011 VA MUSIC JOURNALIST, MISA 729.1 FIBROMYALGIA 12/30/2011 MADL MUSIC JOURNALIST, DARIAN L 729.1 FIBROMYALGIA 12/30/2011 VA MUSIC JOURNALIST, MISA 729.1 FIBROMYALGIA 12/30/2011 729.1 FIBROMYALGIA 01/17/2012 Ot 643.03 MILD HYPEREMESIS-ANTEPAR 01/17/2012 Ot 787.03 VOMITING ALONE 04/23/2012 BALBINA DELACRUZ APRN R 724.3 SCIATICA 04/23/2012 724.3 SCIATICA 04/23/2012 724.3 SCIATICA 04/23/2012 724.3 SCIATICA 04/23/2012 724.3 SCIATICA 04/23/2012 724.3 SCIATICA 04/23/2012 724.3 SCIATICA 04/23/2012 JOAO ALBERT APRN A 724.3 SCIATICA 04/23/2012 BRIANDA LOUIS APRN 724.3 SCIATICA 04/23/2012 RICK ALBERTO, JESSICA A 724.3 SCIATICA 04/23/2012 RICK ALBERTO, JESSICA A 724.3 SCIATICA 04/23/2012 RICK ALBERTO, JESSICA A 724.3 SCIATICA 04/23/2012 BRIANDA LOUIS APRN 724.3 SCIATICA 04/23/2012 RICK ALBERTO, JESSICA Sabillon 724.3 SCIATICA 04/23/2012 DOMINIC BAL MD 724.3 SCIATICA 04/23/2012 DOMINIC BAL MD 724.3 SCIATICA 04/23/2012 RICK ALBERTO, JESSICA Sabillon 724.3 SCIATICA 04/23/2012 BRIANDA LOUIS APRN 724.3 SCIATICA 04/23/2012 LEONARDO DO, NORA K 724.3 SCIATICA 04/23/2012 LEONARDO DO, NORA K 724.3 SCIATICA 04/23/2012 LEONARDO DO, NORA K 724.3 SCIATICA 04/23/2012 BALTA PEDRAZA MD 724.3 SCIATICA 04/23/2012 VA MUSIC JOURNALIST, MISA 724.3 SCIATICA 04/23/2012 VA MUSIC JOURNALIST, MISA 724.3 SCIATICA 04/23/2012 JEREMIE ALEX DDS 724.3 SCIATICA 04/23/2012 VA MUSIC JOURNALIST, MISA 724.3 SCIATICA 04/23/2012 VA MUSIC JOURNALIST, MISA 724.3 SCIATICA 04/23/2012 MADL MUSIC JOURNALIST, DARIAN L 724.3 SCIATICA 04/23/2012 LEONARDO DO, NORA K 724.3 SCIATICA 04/23/2012 LEONARDO DO, NORA K 724.3 SCIATICA 04/23/2012 LEONARDO DO, NORA K 724.3 SCIATICA 04/23/2012 VA MUSIC JOURNALIST, MISA 724.3 SCIATICA 04/23/2012 MADL MUSIC JOURNALIST, DARIAN L 724.3 SCIATICA 04/23/2012 RICK PHD, JESSICA Sabillon 724.3 SCIATICA 04/23/2012 MADL MUSIC JOURNALIST, DARIAN L 724.3 SCIATICA 04/23/2012 VA MUSIC JOURNALIST, MISA 724.3 SCIATICA 04/23/2012 RICK PHD, JESSICA Sabillon 724.3 SCIATICA 04/23/2012 VA MUSIC JOURNALIST, MISA 724.3 SCIATICA 04/23/2012 MADL MUSIC JOURNALIST, DARIAN L 724.3 SCIATICA 04/23/2012 FLOYD MUSIC JOURNALIST, ANGEL R 724.3 SCIATICA 04/23/2012 MADL MUSIC JOURNALIST, DARIAN L 724.3 SCIATICA 04/23/2012 VA MUSIC JOURNALIST, MISA 724.3 SCIATICA 04/23/2012 MADL MUSIC JOURNALIST, DARIAN L 724.3 SCIATICA 04/23/2012 VA MUSIC JOURNALIST, MISA 724.3 SCIATICA 07/17/2012 728.85 MUSCLE SPASM 07/17/2012 728.85 MUSCLE SPASM 07/17/2012 728.85 MUSCLE SPASM 07/17/2012 728.85 MUSCLE SPASM 07/17/2012 728.85 MUSCLE SPASM 07/17/2012 728.85 MUSCLE SPASM 07/17/2012 JOAO ALBERT APRN A 728.85 MUSCLE SPASM 07/17/2012 BRIANDA LOUIS APRN 728.85 MUSCLE SPASM 07/17/2012 RICK PHD, JESSICA A 728.85 MUSCLE SPASM 07/17/2012 BOERAVI PHD, JESSICA A 728.85 MUSCLE SPASM 07/17/2012 BOERAVI PHD, JESSICA A 728.85 MUSCLE SPASM 07/17/2012 BRIANDA LOUIS APRN 728.85 MUSCLE SPASM 07/17/2012 RICK PHD, JESSICA A 728.85 MUSCLE SPASM 07/17/2012 VALERIANO SEYMOUR, DOMINIC Iverson 728.85 MUSCLE SPASM 07/17/2012 VALERIANO SEYMOUR, DOMINIC Iverson 728.85 MUSCLE SPASM 07/17/2012 RICK ALBERTO, JESSICA A 728.85 MUSCLE SPASM 07/17/2012 BRIANDA LOUIS APRN 728.85 MUSCLE SPASM 07/17/2012 LEONARDO DO NORA K 728.85 MUSCLE SPASM 07/17/2012 LEONARDO DO NORA K 728.85 MUSCLE SPASM 07/17/2012 LEONARDO DO NORA K 728.85 MUSCLE SPASM 07/17/2012 BALTA PEDRAZA MD 728.85 MUSCLE SPASM 07/17/2012 VA MUSIC JOURNALIST, MISA 728.85 MUSCLE SPASM 07/17/2012 VA MUSIC JOURNALIST, MISA 728.85 MUSCLE SPASM 07/17/2012 JEREMIE ALEX DDS 728.85 MUSCLE SPASM 07/17/2012 VA MUSIC JOURNALIST, MISA 728.85 MUSCLE SPASM 07/17/2012 VA MUSIC JOURNALIST, MISA 728.85 MUSCLE SPASM 07/17/2012 DARIAN HELTON APRN 728.85 MUSCLE SPASM 07/17/2012 LEONARDO DO NORA K 728.85 MUSCLE SPASM 07/17/2012 LEONARDO DO NORA K 728.85 MUSCLE SPASM 07/17/2012 LEONARDO DO NORA K 728.85 MUSCLE SPASM 07/17/2012 VA MUSIC JOURNALIST, MISA 728.85 MUSCLE SPASM 07/17/2012 MADL MUSIC JOURNALIST, DARIAN L 728.85 MUSCLE SPASM 07/17/2012 RICK ALBERTO, JESSICA Sabillon 728.85 MUSCLE SPASM 07/17/2012 MADL MUSIC JOURNALIST, DARIAN L 728.85 MUSCLE SPASM 07/17/2012 VA MUSIC JOURNALIST, MISA 728.85 MUSCLE SPASM 07/17/2012 RICK ALBERTO, JESSICA Sabillon 728.85 MUSCLE SPASM 07/17/2012 VA MUSIC JOURNALIST, MISA 728.85 MUSCLE SPASM 07/17/2012 MADL MUSIC JOURNALIST, DARIAN L 728.85 MUSCLE SPASM 07/17/2012 F[facility] MUSIC JOURNALIST, ANGEL R 728.85 MUSCLE SPASM 07/17/2012 [facility] MUSIC JOURNALIST, DARIAN L 728.85 MUSCLE SPASM 07/17/2012 [facility] JOURNALIST, MISA 728.85 MUSCLE SPASM 07/17/2012 [facility] MUSIC JOURNALIST, DARIAN L 728.85 MUSCLE SPASM 07/17/2012 [facility] JOURNALIST, MISA 728.85 MUSCLE SPASM 08/23/2012 JEANINE SEYMOUR, TRAM T Ot 724.5 BACKACHE NOS 08/23/2012 JEANINE SEYMOUR, TRAM T Ot 784.0 HEADACHE 08/25/2012 296.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 08/25/2012 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 08/25/2012 296.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 08/25/2012 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 08/25/2012 296.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 08/25/2012 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 08/25/2012 296.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 08/25/2012 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 08/25/2012 JOAO ALBERT APRN A 296.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 08/25/2012 JOAO ALBERT APRN A 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 08/25/2012 BRIANDA LOUIS APRN 296.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 08/25/2012 BRIANDA LOUIS APRN 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 08/25/2012 JESSICA CABRERA PHD 296.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 08/25/2012 JESSICA CABRERA PHD 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 08/25/2012 RICK ALBERTO, JESSICA A 296.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 08/25/2012 RICK ALBERTO, JESSICA A 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 08/25/2012 RICK ALBERTO, JESSICA A 296.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 08/25/2012 RICK ALBERTO, JESSICA A 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 08/25/2012 BRIANDA LOUIS APRN 296.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 08/25/2012 BRIANDA LOUIS APRN 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 08/25/2012 RICK ALBERTO, JESSICA A 296.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 08/25/2012 LEONARDO DO, NORA K 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 08/25/2012 LEONARDO DO, NORA K 296.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 08/25/2012 LEONARDO DO, NORA K 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 08/25/2012 LEONARDO DO, NORA K 296.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 08/25/2012 LEONARDO DO, NORA K 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 08/25/2012 BALTA PEDRAZA MD 296.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 08/25/2012 BALTA PEDRAZA MD 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 08/25/2012 [facility] JOURNALIST, MISA 296.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 08/25/2012 [facility] JOURNALIST, MISA 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 08/25/2012 [facility] JOURNALIST, MISA 296.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 08/25/2012 [facility] JOURNALIST, MISA 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 08/25/2012 WHITE DDS, JEREMIE D 296.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 08/25/2012 WHITE DDS, JEREMIE D 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 08/25/2012 [facility] JOURNALIST, MISA 296.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 08/25/2012 [facility] JOURNALIST, MISA 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 08/25/2012 [facility] JOURNALIST, MISA 296.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 08/25/2012 [facility] JOURNALIST, MISA 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 08/25/2012 [facility] MUSIC JOURNALIST, DARIAN L 296.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 08/25/2012 [facility] MUSIC JOURNALIST, DARIAN L 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 08/25/2012 LEONARDO DO, NORA K 296.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 08/25/2012 LEONARDO DO, NORA K 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 08/25/2012 LEONARDO DO, NORA K 296.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 08/25/2012 LEONARDO DO, NORA K 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 08/25/2012 LEONARDO DO, NORA K 296.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 08/25/2012 LEONARDO DO, NORA K 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 08/25/2012 [facility] JOURNALIST, MISA 296.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 08/25/2012 [facility] JOURNALIST, MISA 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 08/25/2012 [facility] MUSIC JOURNALIST, DARIAN L 296.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 08/25/2012 [facility] MUSIC JOURNALIST, DARIAN L 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 08/25/2012 RICK PHD, JESSICA A 296.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 08/25/2012 RICK PHD, JESSICA A 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 08/25/2012 [facility] MUSIC JOURNALIST, DARIAN L 296.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 08/25/2012 [facility] MUSIC JOURNALIST, DARIAN L 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 08/25/2012 [facility] JOURNALIST,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 CHONDROMALACIA 08/05/2013 LEONARDO DO, NORA K 733.92 CHONDROMALACIA 08/05/2013 LEONARDO DO, NORA K 733.92 CHONDROMALACIA 08/05/2013 [facility] MUSIC JOURNALIST, MISA 733.92 CHONDROMALACIA 08/05/2013 MAD[facility] MUSIC JOURNALIST, DARIAN L 733.92 CHONDROMALACIA 08/05/2013 RICK ALBERTO, JESSICA Sabillon 733.92 CHONDROMALACIA 08/05/2013 MAD[facility] MUSIC JOURNALIST, DARIAN L 733.92 CHONDROMALACIA 08/05/2013 [facility] MUSIC JOURNALIST, MISA 733.92 CHONDROMALACIA 08/05/2013 RICK ALBERTO, JESSICA Sabillon 733.92 CHONDROMALACIA 08/05/2013 [facility] MUSIC JOURNALIST, MISA 733.92 CHONDROMALACIA 08/05/2013 MADL MUSIC JOURNALIST, DARIAN L 733.92 CHONDROMALACIA 08/05/2013 FLOYD MUSIC JOURNALIST, ANGEL R 733.92 CHONDROMALACIA 08/05/2013 MADL MUSIC JOURNALIST, DARIAN L 733.92 CHONDROMALACIA 08/05/2013 [place] MUSIC JOURNALIST, MISA 733.92 CHONDROMALACIA 08/05/2013 MADL MUSIC JOURNALIST, DARIAN L 733.92 CHONDROMALACIA 08/05/2013 VA MUSIC JOURNALIST, MISA 733.92 CHONDROMALACIA 10/03/2013 NOBLE GOMEZ APRN Ot 620.2 OVARIAN CYST NEC/NOS 10/03/2013 NOBLE GOMEZ APRN Ot 789.00 ABDOMINAL PAIN, UNSPECIFIED SITE 11/01/2013 NOBLE GOMEZ APRN Ot 338.29 OTHER CHRONIC PAIN 11/01/2013 NOBLE GOMEZ MUSIC JOURNALIST Ot 620.2 OVARIAN CYST NEC/NOS 11/01/2013 NOBLE GOMEZ MUSIC JOURNALIST Ot 789.00 ABDOMINAL PAIN, UNSPECIFIED SITE 11/03/2013 DANIE COOPER, DARIAN L 620.2 OVARIAN CYST 11/03/2013 LEONARDO DO, NORA K 620.2 OVARIAN CYST 11/03/2013 LEONARDO DO, NORA K 620.2 OVARIAN CYST 11/03/2013 LEONARDO DO, NORA K 620.2 OVARIAN CYST 11/03/2013 VA MUSIC JOURNALIST, MISA 620.2 OVARIAN CYST 11/03/2013 MAD MUSIC JOURNALIST, DARIAN L 620.2 OVARIAN CYST 11/03/2013 RICK ALBERTO, JESSICA Sabillon 620.2 OVARIAN CYST 11/03/2013 MAD MUSIC JOURNALIST, DARIAN L 620.2 OVARIAN CYST 11/03/2013 VA MUSIC JOURNALIST, MISA 620.2 OVARIAN CYST 11/03/2013 RICK PHD, JESSICA Sabillon 620.2 OVARIAN CYST 11/03/2013 VA MUSIC JOURNALIST, MISA 620.2 OVARIAN CYST 11/03/2013 MADL MUSIC JOURNALIST, DARIAN L 620.2 OVARIAN CYST 11/03/2013 FLOYD COOPER ANGEL R 620.2 OVARIAN CYST 11/03/2013 MADL MUSIC JOURNALIST, DARIAN L 620.2 OVARIAN CYST 11/03/2013 VA MUSIC JOURNALIST, MISA 620.2 OVARIAN CYST 11/03/2013 MADL MUSIC JOURNALIST, DARIAN L 620.2 OVARIAN CYST 11/03/2013 VA MUSIC JOURNALIST, MISA 620.2 OVARIAN CYST 12/02/2013 LEONARDO DO, NORA K 787.02 NAUSEA ALONE 12/02/2013 LEONARDO DO, NORA K 787.02 NAUSEA ALONE 12/02/2013 VA MUSIC JOURNALIST, MISA 787.02 NAUSEA ALONE 12/02/2013 MADL MUSIC JOURNALISTXU BalNYA L 787.02 NAUSEA ALONE 12/02/2013 RICK ALBERTO, JESSICA Sabillon 787.02 NAUSEA ALONE 12/02/2013 MADL MUSIC JOURNALIST, DARIAN L 787.02 NAUSEA ALONE 12/02/2013 VA MUSIC JOURNALIST, MISA 787.02 NAUSEA ALONE 12/02/2013 RICK ALBERTO, JESSICA Sabillon 787.02 NAUSEA ALONE 12/02/2013 VA MUSIC JOURNALIST, MISA 787.02 NAUSEA ALONE 12/02/2013 MADL MUSIC JOURNALIST, DARIAN L 787.02 NAUSEA ALONE 12/02/2013 FREDERIC BARRIENTOS APRNINA R 787.02 NAUSEA ALONE 12/02/2013 MADL MUSIC JOURNALIST, DARIAN L 787.02 NAUSEA ALONE 12/02/2013 VA MUSIC JOURNALIST, MISA 787.02 NAUSEA ALONE 12/02/2013 MADL MUSIC JOURNALIST, DARIAN L 787.02 NAUSEA ALONE 12/02/2013 VA MUSIC JOURNALIST, MISA 787.02 NAUSEA ALONE 12/30/2013 MISA DE DIOS APRN 300.01 AN PANIC DIS W/O AGORA 12/30/2013 RAMON HELTON APRNA L 300.01 AN PANIC DIS W/O AGORA 12/30/2013 RICK ALBERTO, JESSICA Sabillon 300.01 AN PANIC DIS W/O AGORA 12/30/2013 MADL MUSIC JOURNALIST, DARIAN L 300.01 AN PANIC DIS W/O AGORA 12/30/2013 VA MUSIC JOURNALIST, MISA 300.01 AN PANIC DIS W/O AGORA 12/30/2013 RICK PHD, JESSICA Sabillon 300.01 AN PANIC DIS W/O AGORA 12/30/2013 VA MUSIC JOURNALIST, MISA 300.01 AN PANIC DIS W/O AGORA 12/30/2013 MADSandor MUSIC JOURNALIST, DARIAN L 300.01 AN PANIC DIS W/O AGORA 12/30/2013 FLOYD COOPER, ANGEL R 300.01 AN PANIC DIS W/O AGORA 12/30/2013 MADL MUSIC JOURNALIST, DARIAN L 300.01 AN PANIC DIS W/O AGORA 12/30/2013 VA COOPER MISA 300.01 AN PANIC DIS W/O AGORA 12/30/2013 DANIE MUSIC JOURNALIST, DARIAN L 300.01 AN PANIC DIS W/O AGORA 12/30/2013 JAVIER DE DIOS APRNETTE 300.01 AN PANIC DIS W/O AGORA 12/30/2013 JEANINE SEYMOUR, TRAM T Ot 924.20 CONTUSION OF FOOT 12/30/2013 TRAM SOLORZANO MD T Ot 959.7 LOWER LEG INJURY NOS 12/30/2013 TRAM SOLORZANO MD T Ot E000.8 OTHER EXTERNAL CAUSE STATUS 12/30/2013 TRAM SOLORZANO MD T Ot E849.0 ACCIDENT IN HOME 12/30/2013 TRAM SOLORZANO MD T Ot E885.9 FALL FROM SLIPPING, TRIPPING, OR STUMBLI 12/31/2013 DARIAN HELTON APRN L 525.9 UNSPECIFIED DISORDER OF THE TEETH AND SUPPORTING STRUCTURES 12/31/2013 DARIAN HELTON APRN L 719.45 PAIN IN JOINT INVOLVING PELVIC REGION AND THIGH 12/31/2013 RICK ALBERTO, JESSICA Sabillon 525.9 UNSPECIFIED DISORDER OF THE TEETH AND SUPPORTING STRUCTURES 12/31/2013 JESSICA CABRERA PHD 719.45 PAIN IN JOINT INVOLVING PELVIC REGION AND THIGH 12/31/2013 DARIAN HELTON APRN L 525.9 UNSPECIFIED DISORDER OF THE TEETH AND SUPPORTING STRUCTURES 12/31/2013 MADL MUSIC JOURNALIST, DARIAN L 719.45 PAIN IN JOINT INVOLVING PELVIC REGION AND THIGH 12/31/2013 VA MUSIC JOURNALIST, MISA 525.9 UNSPECIFIED DISORDER OF THE TEETH AND SUPPORTING STRUCTURES 12/31/2013 VA MUSIC JOURNALIST, MISA 719.45 PAIN IN JOINT INVOLVING PELVIC REGION AND THIGH 12/31/2013 JESSICA CABRERA PHD 525.9 UNSPECIFIED DISORDER OF THE TEETH AND SUPPORTING STRUCTURES 12/31/2013 JESSICA CABRERA PHD 719.45 PAIN IN JOINT INVOLVING PELVIC REGION AND THIGH 12/31/2013 VA MUSIC JOURNALIST, MISA 525.9 UNSPECIFIED DISORDER OF THE TEETH AND SUPPORTING STRUCTURES 12/31/2013 VA MUSIC JOURNALIST, MISA 719.45 PAIN IN JOINT INVOLVING PELVIC REGION AND THIGH 12/31/2013 MADL MUSIC JOURNALIST, DARIAN L 525.9 UNSPECIFIED DISORDER OF THE TEETH AND SUPPORTING STRUCTURES 12/31/2013 MADL MUSIC JOURNALIST, DARIAN L 719.45 PAIN IN JOINT INVOLVING PELVIC REGION AND THIGH 12/31/2013 FLOYD RIVERAN, ANGEL R 525.9 UNSPECIFIED DISORDER OF THE TEETH AND SUPPORTING STRUCTURES 12/31/2013 FLOYD MUSIC JOURNALIST, ANGEL R 719.45 PAIN IN JOINT INVOLVING PELVIC REGION AND THIGH 12/31/2013 MADL MUSIC JOURNALIST, DARIAN L 525.9 UNSPECIFIED DISORDER OF THE TEETH AND SUPPORTING STRUCTURES 12/31/2013 MADL MUSIC JOURNALIST, DARIAN L 719.45 PAIN IN JOINT INVOLVING PELVIC REGION AND THIGH 12/31/2013 VA MUSIC JOURNALIST, MISA 525.9 UNSPECIFIED DISORDER OF THE TEETH AND SUPPORTING STRUCTURES 12/31/2013 VA MUSIC JOURNALIST, MISA 719.45 PAIN IN JOINT INVOLVING PELVIC REGION AND THIGH 12/31/2013 MADL MUSIC JOURNALIST, DARIAN L 525.9 UNSPECIFIED DISORDER OF THE TEETH AND SUPPORTING STRUCTURES 12/31/2013 MADL MUSIC JOURNALIST, DARIAN L 719.45 PAIN IN JOINT INVOLVING PELVIC REGION AND THIGH 12/31/2013 VA MUSIC JOURNALIST, MISA 525.9 UNSPECIFIED DISORDER OF THE TEETH AND SUPPORTING STRUCTURES 12/31/2013 VA MUSIC JOURNALIST, MISA 719.45 PAIN IN JOINT INVOLVING PELVIC REGION AND THIGH 01/05/2014 STELLA SULLIVAN DO Ot 346.90 MIGRAINE UNSPECIFIED W/O INTRACT MGRN W/ 01/05/2014 STELLA SULLIVAN DO Ot 522.5 PERIAPICAL ABSCESS 01/05/2014 STELLA SULLIVAN DO Ot 784.0 HEADACHE 01/10/2014 GOMEZNOBLE MARINO Belén COOPER Ot 784.0 HEADACHE 01/24/2014 MADL MUSIC JOURNALIST, ADRIAN L 380.4 IMPACTED CERUMEN 01/24/2014 MADL MUSIC JOURNALIST, DARIAN L 780.4 DIZZINESS AND GIDDINESS 01/24/2014 VA MUSIC JOURNALIST, MSIA 380.4 IMPACTED CERUMEN 01/24/2014 VA MUSIC JOURNALIST, MISA 780.4 DIZZINESS AND GIDDINESS 01/24/2014 RICK ALBERTO, JESSICA Sabillon 380.4 IMPACTED CERUMEN 01/24/2014 RICK ALBERTO, JESSICA Sabillon 780.4 DIZZINESS AND GIDDINESS 01/24/2014 VA MUSIC JOURNALIST, MISA 380.4 IMPACTED CERUMEN 01/24/2014 VA MUSIC JOURNALIST, MISA 780.4 DIZZINESS AND GIDDINESS 01/24/2014 MADL MUSIC JOURNALIST, DARIAN L 380.4 IMPACTED CERUMEN 01/24/2014 MADL MUSIC JOURNALIST, DARIAN L 780.4 DIZZINESS AND GIDDINESS 01/24/2014 FLOYD MUSIC JOURNALIST, ANGEL R 380.4 IMPACTED CERUMEN 01/24/2014 FLOYD MUSIC JOURNALIST, ANGEL R 780.4 DIZZINESS AND GIDDINESS 01/24/2014 MADL MUSIC JOURNALIST, DARIAN L 380.4 IMPACTED CERUMEN 01/24/2014 MADL MUSIC JOURNALIST, DARIAN L 780.4 DIZZINESS AND GIDDINESS 01/24/2014 VA MUSIC JOURNALIST, MISA 380.4 IMPACTED CERUMEN 01/24/2014 VA MUSIC JOURNALIST, MISA 780.4 DIZZINESS AND GIDDINESS 01/24/2014 MADL MUSIC JOURNALIST, DARIAN L 380.4 IMPACTED CERUMEN 01/24/2014 MADL MUSIC JOURNALIST, DARIAN L 780.4 DIZZINESS AND GIDDINESS 01/24/2014 VA MUSIC JOURNALIST, MISA 380.4 IMPACTED CERUMEN 01/24/2014 VA MUSIC JOURNALIST, MISA 780.4 DIZZINESS AND GIDDINESS 01/28/2014 RICK ALBERTO, JESSICA Sabillon 300.21 AN PANIC DIS W AGORA 01/28/2014 VA MUSIC JOURNALIST, MISA 300.21 AN PANIC DIS W AGORA 01/28/2014 RAMON HELTON APRNA L 300.21 AN PANIC DIS W AGORA 01/28/2014 FLOYD KENNETH ANGEL R 300.21 AN PANIC DIS W AGORA 01/28/2014 DARIAN HELTON APRN L 300.21 AN PANIC DIS W AGORA 01/28/2014 VA MUSIC JOURNALIST, MISA 300.21 AN PANIC DIS W AGORA 01/28/2014 RAMON HELTON APRNA L 300.21 AN PANIC DIS W AGORA 01/28/2014 VA MUSIC JOURNALIST, MISA 300.21 AN PANIC DIS W AGORA 03/16/2014 Ot 643.03 03/16/2014 RAOUL GARCIA Ot 521.00 UNSPEC DENTAL CARIES 03/16/2014 RAOUL GARCIA Ot 525.9 DENTAL DISORDER NOS 07/18/2016 Ot 643.03 MILD HYPEREMESIS-ANTEPAR 02/09/2018 PANDA WASHBURN P M545 Low back pain 05/09/2018 DARIAN HELTON SUPERVISOR CELL MAINTENANCE Ot R10.11 RIGHT UPPER QUADRANT PAIN Procedures Code [place] [address] ROUTINE VENIPUNCTURE 12/30/2011 49343 ESR/SED RATE 12/30/2011 13185 CBC 12/30/2011 85492 CMP 12/30/2011 2856055 GFR CALC (RESULT ONLY) 12/30/2011 78136 CRP 12/31/2011 89907 VITAMIN D 25-HYDROXY (D2,D3 , TOTAL) 12/31/2011 70018 VIT B 12 12/31/2011 65752 FOLATE 12/31/2011 87703 TSH 12/31/2011 PHYSI PHYSICAL THERAPY, VIA [facility] 07/17/2012 PHYSICAL PHYSICAL THERAPY, VIA [facility] 08/19/2012 15790 URINE DRUG SCREEN (IN-HOUSE ) 08/25/2012 10379 URINE AMPHETAMINE GC/MS 08/25/2012 91328 PSYCH DIAG EVAL W/MED SRVCS 09/01/2012 87943 PSYCHO TESTING 1 HR W COMP 12/02/2012 63404 URINE DRUG SCREEN (IN-HOUSE ) 12/15/2012 33990 GC/CHLAM PROBE (STATE) 12/21/2012 24176 URINE TEST (IN- HOUSE) 12/21/2012 31114 TRICHOMONAS (IN-HOUSE) 12/21/2012 98572 CULTURE UROGENITAL 12/22/2012 61414 PSYTX PT&/FAMILY 45 MINUTES 02/02/2013 49302 PSYTX PT&/FAMILY 45 MINUTES 02/18/2013 39749 PSYTX PT&/FAMILY 45 MINUTES 03/23/2013 12318 PSYTX PT&/FAMILY 45 MINUTES 05/12/2013 79906 ROUTINE VENIPUNCTURE 06/10/2013 04517 UA W/ CULTURE IF INDICATED 06/10/2013 00948 A1C (IN-HOUSE) 06/10/2013 41003 XRAY LUMBAR SPINE 2 OR 3 VIEWS 06/10/2013 74460 XRAY KNEE RIGHT 1 OR 2 VIEWS 06/10/2013 9061525 GFR CALC (RESULT ONLY) 06/10/2013 38159 CMP 06/10/2013 47808 CBC 06/10/2013 28316 VIT B 12 06/10/2013 28071 TSH 06/10/2013 74366 GC/CHLAM URINE (STATE) 06/15/2013 68876 PSYTX PT&/FAMILY 45 MINUTES 06/16/2013 12320 PULMONARY FUNCTION TEST (IN- HOUSE) 07/02/2013 80658 PULMONARY EDUCATION 07/02/2013 98813 JOINT INJECTION- LARGE JOINT (SPECIFY MEDCIN DESCRIPTION) 12/02/2013 11840 JOINT INJECTION- LARGE JOINT (SPECIFY MEDCIN DESCRIPTION) 12/02/2013 J1040 DEPO MEDROL 80 MG INJ 12/02/2013 65834 PSYTX PT&/FAMILY 45 MINUTES 01/05/2014 12468 ROUTINE VENIPUNCTURE 01/24/2014 79544 XRAY LUMBAR SPINE 2 OR 3 VIEWS 01/24/2014 05050 XRAY HIP RIGHT UNILATERAL MIN 2 VIEWS 01/24/2014 60827 CMP 01/24/2014 82807 CBC 01/24/2014 10078 PSYTX PT&/FAMILY 45 MINUTES 01/31/2014 18691 ROUTINE VENIPUNCTURE 03/01/2014 04220 UA W/ CULTURE IF INDICATED 03/01/2014 31295 TEST, URINE (IN- HOUSE) 03/01/2014 98349 CBC 03/02/2014 61992 CMP 03/02/2014 7266110 GFR CALC (RESULT ONLY) 03/02/2014 87871 STREP A (IN-HOUSE) 03/28/2014 Results Test Result Range CBC With Differential/Platelet - 04/25/16 12:06 WBC 5.8 x10E3/uL 3.4-10.8 RBC 4.74 x10E6/uL 3.77-5.28 Hemoglobin 11.2 g/dL 11.1-15.9 Hematocrit 37.4 % 34.0-46.6 MCV 79 fL 79-97 MCH 23.6 pg 26.6-33.0 MCHC 29.9 g/dL 31.5-35.7 RDW 14.5 % 12.3-15.4 Platelets 328 x10E3/uL 150-379 Neutrophils 66 % Lymphs 25 % Monocytes 7 % Eos 1 % Basos 1 % Neutrophils (Absolute) 3.8 x10E3/uL 1.4-7.0 Lymphs (Absolute) 1.5 x10E3/uL 0.7-3.1 Monocytes(Absolute) 0.4 x10E3/uL 0.1-0.9 Eos (Absolute) 0.0 x10E3/uL 0.0-0.4 Baso (Absolute) 0.0 x10E3/uL 0.0-0.2 Immature Granulocytes 0 % Immature Grans (Abs) 0.0 x10E3/uL 0.0-0.1 Comp. Metabolic Panel (14) - 04/25/16 12:06 Glucose, Serum 110 mg/dL 65-99 BUN 10 mg/dL 6-20 Creatinine, Serum 0.75 mg/dL 0.57-1.00 eGFR If NonAfricn Am 104 mL/min/1.73 >59 eGFR If Africn Am 120 mL/min/1.73 >59 BUN/Creatinine Ratio 13 8-20 Sodium, Serum 139 mmol/L 134-144 Potassium, Serum 4.2 mmol/L 3.5-5.2 Chloride, Serum 100 mmol/L 96-106 Carbon Dioxide, Total 22 mmol/L 18-29 Calcium, Serum 9.0 mg/dL 8.7-10.2 Protein, Total, Serum 7.0 g/dL 6.0-8.5 Albumin, Serum 4.4 g/dL 3.5-5.5 Globulin, Total 2.6 g/dL 1.5-4.5 A/G Ratio 1.7 1.1-2.5 Bilirubin, Total <0.2 mg/dL 0.0-1.2 Alkaline Phosphatase, S 53 IU/L 39-117 AST (SGOT) 12 IU/L 0-40 ALT (SGPT) 9 IU/L 0-32 TSH - 04/25/16 12:06 TSH 1.020 uIU/mL 0.450-4.500 Sedimentation Rate-Westergren - 04/25/16 12:06 Sedimentation Rate-Westergren 11 mm/hr 0-32 C-Reactive Protein, Quant - 04/25/16 12:06 C-Reactive Protein, Quant 2.8 mg/L 0.0-4.9 Lipid Panel - 05/13/16 14:17 Cholesterol, Total 193 mg/dL 100-199 Triglycerides 140 mg/dL 0-149 HDL Cholesterol 50 mg/dL >39 VLDL Cholesterol Johnson 28 mg/dL 5-40 LDL Cholesterol Calc 115 mg/dL 0-99 PREG URINE TEST - 02/09/18 18:30 URINE PREGNCY NEGATIVE NR: NEGATIVE UA COMP CULT - 02/09/18 18:30 METHOD? VOID NRG URINE COLOR YELLOW NR:YELLOW TURBIDITY HAZY NR:CLEAR UR GLUCOSE NEGATIVE NR:NEGATIVE BILIRUBIN 1+ NR:NEGATIVE KETONES 1+ NR:NEGATIVE SPEC GRAVITY >=1.030 1.005-1.015 BLOOD 2+ NR:NEGATIVE pH 5.5 5.0 - 8.0 PROTEIN TRACE NR:NEGATIVE UROBILINOGEN 0.2 <1.0 NITRITE NEGATIVE NR:NEGATIVE LEUK ESTERASE NEGATIVE NR:NEGATIVE MICROSCOPIC PERFORMED NRG REFLEX CULTURE? YES NRG WBC/HPF 5-10 HPF 0-4 /HPF RBC/HPF 0-3 HPF 0-4 /HPF BACTERIA 2+ MOD NR: NEGATIVE MUCUS MODERATE NR: NEGATIVE EPI CELLS/LPF >75 NR: NONE SEEN AMORPHOUS 1+ NRG Encounters ACCT No. Visit Date/Time Discharge Status Pt. Type Provider Facility Loc./Unit Complaint [id number] 05/20/2014 08:21:00 05/20/2014 23:59:59 [facility] Outpatient DARIAN HELTON APRN [id number] 05/17/2014 14:31:00 05/17/2014 23:59:59 CLS Outpatient MISA DE DIOS APRN [id number] 05/17/2014 14:31:00 05/17/2014 23:59:59 CLS Outpatient MISA DE DIOS APRN [id number] 03/28/2014 13:54:00 03/28/2014 23:59:59 CLS Outpatient MADL MUSIC JOURNALISTDARIAN [id number] 03/01/2014 17:50:00 03/01/2014 23:59:59 CLS Outpatient ANGEL BARRIENTOS APRN [id number] 02/24/2014 10:41:00 02/24/2014 23:59:59 CLS Outpatient MADL MUSIC JOURNALISTDARIAN [id number] 01/31/2014 14:46:00 01/31/2014 23:59:59 CLS Outpatient RICK ALBERTO, JESSICA Sabillon [id number] 01/28/2014 13:28:00 01/28/2014 23:59:59 CLS Outpatient VA MUSIC JOURNALISTMISA [id number] 01/28/2014 13:28:00 01/28/2014 23:59:59 CLS Outpatient VA MUSIC JOURNALISTMISA [id number] 01/24/2014 11:02:00 01/24/2014 23:59:59 CLS Outpatient MADL MUSIC JOURNALISTDARIAN Sandor [id number] 01/05/2014 18:04:00 01/05/2014 23:59:59 [facility] JESS[facility] Sabillon [id number] 12/31/2013 14:16:00 12/31/2013 23:59:59 CLS Outpatient MADL MUSIC JOURNALISTDARIAN Sandor [id number] 12/30/2013 10:39:00 12/30/2013 23:59:59 CLS Outpatient VA MUSIC JOURNALISTMISA [id number] 12/02/2013 12:08:00 12/02/2013 23:59:59 CLS Outpatient LEONARDO DONORA [id number] 11/25/2013 15:41:00 11/25/2013 23:59:59 CLS Outpatient LEONARDO DONORA [id number] 11/10/2013 00:00:00 11/10/2013 23:59:59 CLS Outpatient LEONARDO DONORA [id number] 11/03/2013 10:37:00 11/03/2013 23:59:59 CLS Outpatient MADL MUSIC JOURNALISTDARIAN Sandor [id number] 10/12/2013 13:49:00 10/12/2013 23:59:59 CLS Outpatient VA MUSIC JOURNALIST, MISA [id number] 10/12/2013 13:49:00 10/12/2013 23:59:59 CLS Outpatient VAJAVIER FARRELL APRNETTE [id number] 09/16/2013 10:45:00 09/16/2013 23:59:59 CLS Outpatient JEREMIE ALEX DDS [id number] 09/09/2013 11:08:00 09/09/2013 23:59:59 CLS Outpatient JAVIER DE DIOS APRNETTE [id number] 08/10/2013 17:02:00 08/10/2013 23:59:59 CLS Outpatient BALTA PEDRAZA MD [id number] 08/10/2013 17:02:00 08/10/2013 23:59:59 CLS Outpatient VA KENNETH MISA [id number] 08/09/2013 10:41:00 08/09/2013 23:59:59 CLS Outpatient NORA LEONARDO DO [id number] 08/05/2013 13:05:00 08/05/2013 23:59:59 CLS Outpatient NORA LEONARDO DO [id number] 07/02/2013 13:45:00 07/02/2013 23:59:59 CLS Outpatient NORA LEONARDO DO [id number] 06/15/2013 13:49:00 06/15/2013 23:59:59 CLS Outpatient JESSICA CABRERA PHD [id number] 06/15/2013 13:26:00 06/15/2013 23:59:59 CLS Outpatient BRIANDA LOUIS APRN [id number] 06/10/2013 13:05:00 06/10/2013 23:59:59 CLS Outpatient DOMINIC BAL MD [id number] 06/04/2013 13:42:00 06/04/2013 23:59:59 CLS Outpatient DOMINIC BAL MD [id number] 05/11/2013 11:02:00 05/11/2013 23:59:59 CLS Outpatient JESSICA CABRERA PHD [id number] 03/22/2013 10:55:00 03/22/2013 23:59:59 CLS Outpatient JESSICA CABRERA PHD [id number] 03/11/2013 11:08:00 03/11/2013 23:59:59 CLS Outpatient BRIANDA LOUIS APRN [id number] 02/17/2013 14:50:00 02/17/2013 23:59:59 CLS Outpatient JESSICA CABRERA PHD [id number] 02/01/2013 12:57:00 02/01/2013 23:59:59 CLS Outpatient JESSICA CABRERA PHD [id number] 12/21/2012 14:27:00 12/21/2012 23:59:59 CLS Outpatient JOAO ALBERT APRN [id number] 12/15/2012 10:04:00 12/15/2012 23:59:59 CLS Outpatient BRIANDA LOUIS APRN [id number] 04/23/2012 15:04:00 04/23/2012 23:59:59 CLS Outpatient BALBINA DELACRUZ APRN [id number] 12/30/2011 10:59:00 12/30/2011 23:59:59 CLS Outpatient [id number] 12/15/2012 10:04:00 Document Registration [id number] 12/01/2012 11:52:00 Document Registration [id number] 08/26/2012 09:00:00 Document Registration [id number] 08/25/2012 10:07:00 Document Registration [id number] 08/19/2012 15:31:00 Document Registration [id number] 07/17/2012 15:28:00 Document Registration [id number] 05/14/2016 09:16:00 Document Registration [id number] 04/26/2016 10:05:00 Document Registration [id number] 03/16/2014 21:07:02 ACT Document Registration [id number] 02/09/2018 17:54:00 02/09/2018 19:25:00 DIS Emergency PANDA WASHBURN 014 LOWER BACK PAIN [id number] 02/09/2018 17:54:00 Document Registration [id number] 07/24/2016 14:09:00 07/24/2016 23:59:59 CLS Preadmit MADL, DARIAN L SUPERVISOR CELL MAINTENANCE [facility] CARD R10.11 [id number] 07/18/2016 07:26:00 07/18/2016 23:59:59 CLS Outpatient MADL, DARIAN L SUPERVISOR CELL MAINTENANCE [facility] RAD RUQ PAIN [id number] 03/16/2014 21:06:00 03/16/2014 22:11:00 DIS Emergency RAOUL GARCIA [facility] ER DENTAL PAIN [id number] 01/10/2014 20:15:00 01/10/2014 21:20:00 DIS Emergency NOBLE GOMEZ APRN [facility] ER HEADACHE [id number] 01/05/2014 21:45:00 01/05/2014 23:13:00 DIS Emergency NATE BOATENG STELLA Yovani [facility] ER HEADACHE [id number] 12/29/2013 23:31:00 12/30/2013 00:51:00 DIS Emergency TRAM SOLORZANO MD [facility] ER FELL-RT HIP PAIN-RT FOOT SWELLING [id number] 11/01/2013 19:35:00 11/01/2013 22:05:00 DIS Emergency NOBLE GOMEZ APRN [facility] ER ABD,LOW BACK PAIN [id number] 10/03/2013 17:06:00 10/03/2013 19:47:00 DIS Emergency NOBLE GOMEZ APRN [facility] ER ABD PAIN [id number] 03/17/2013 19:40:00 03/17/2013 20:46:00 DIS Emergency NOBLE GOMEZ APRN [facility] ER R WRIST PAIN; INJ AT HOME [id number] 02/17/2013 20:29:00 02/17/2013 22:39:00 DIS Emergency TRAM SOLORZANO MD [facility] ER HEADACHE [id number] 01/06/2013 21:14:00 01/06/2013 22:10:00 DIS Emergency NOBLE GOMEZ APRN [facility] ER EYE PAIN FROM INJ [id number] 12/21/2012 15:27:00 12/21/2012 23:12:00 DIS Emergency BRIDGETTE MERRILL DO [facility] ER NECK PAIN,HEAD PAIN FROM INJ [id number] 11/03/2012 16:13:00 11/03/2012 18:30:00 DIS Emergency RAOUL GARCIA [facility] ER HEAD PAIN FROM INJ [id number] 08/22/2012 22:31:00 08/23/2012 01:22:00 DIS Emergency JEANINE SEYMOUR, TRAM Garibay [facility] ER BACK PAIN [id number] 05/09/2018 01:20:00 ACT Emergency BRIDGETTE MERRILL DO [facility] ER MIGRAINE,VOMITING [id number] 02/12/2012 08:28:00 Document Registration [id number] 01/17/2012 19:30:00 Document Registration [id number] 12/04/2011 11:58:00 Document Registration [id number] 11/24/2011 16:57:00 Document Registration [id number] 07/06/2011 21:59:00 Document Registration [id number] 06/29/2011 18:07:00 Document Registration [id number] 06/27/2011 22:38:00 Document Registration [id number] 07/27/2010 18:47:00 Document Registration
[2018-05-09] MEDS ORDERED: LACTATED RINGERS 1,000 ML IV ONE (02:06)
[2018-05-09] MEDS ORDERED: ONDANSETRON 4 MG/2 ML (SDV) Z0FRAN IVP ONE (02:15)
[2018-05-09 02:36] LABS: AMPHETAMINE SCREEN, URINE NEGATIVE (NEGATIVE); BARBITURATE SCREEN URINE NEGATIVE (NEGATIVE); BENZODIAZEPINES SCREEN URINE NEGATIVE (NEGATIVE); CANNABINOID SCREEN, URINE NEGATIVE (NEGATIVE); COCAINE SCREEN URINE NEGATIVE (NEGATIVE); METHADONE STAT NEGATIVE (NEGATIVE); METHAMPHETAMINE SCREEN URINE S POSITIVE (NEGATIVE); OPIATE SCREEN URINE NEGATIVE (NEGATIVE); OXYCODONE STAT NEGATIVE (NEGATIVE); PROPOXYPHENE STAT NEGATIVE (NEGATIVE); TRICYCLIC ANTIDEPRESSANTS SCRE NEGATIVE (NEGATIVE)
[2018-05-09] MEDS ORDERED: KETOROLAC 30 MG/ML VIAL IVP STA (02:38)
--- NOTE | 2018-05-09 03:18 | ED Headache ---
General Chief Complaint: Head/Cervical Problems Stated Complaint: MIGRAINE,VOMITING Source: patient History of Present Illness Date Seen by Provider: May 09, 2018 Time Seen by Provider: 02:00 Initial Comments PT ARRIVES VIA POV FROM HOME C/O HEADACHE "MIGRAINE" FOR 2 DAYS HEADACHE IS ON TOP OF HEAD NOTHING WORSENS OR IMPROVES IT HAS NOT TAKEN ANYTHING FOR IT AT ANY TIME C/O NAUSEA AND VOMITED X 4-5 TODAY NO VISION CHANGES NO PARESTHESIAS OR MOTOR DEFICITS NO FEVER OR RECENT ILLNESS NO URI/SINUS SYMPTOMS HAS CHRONIC HEADACHES AND THIS IS EXACTLY THE SAME SHE HAS HAD IN THE PAST STATES OVERALL, SHE DOES NOT GET HEADACHES MUCH SHE USED TO LMP 2 WEEKS AGO. NORMAL. S/P BTL PCP: FRANCISCA-NIKOLAY Allergies and Home Medications Allergies Coded Allergies: No Known Drug Allergies (Unverified , 07/27/10) Home Medications Amoxicillin 500 Mg Capsule, 2 EACH PO TID Prescribed by: RAOUL MAYES on 03/16/14 7497 Patient Home Medication List Home Medication List Reviewed: Yes Review of Systems Review of Systems Constitutional: no symptoms reported Eyes: No Symptoms Reported Ears, Nose, Mouth, Throat: no symptoms reported Respiratory: no symptoms reported Cardiovascular: no symptoms reported Gastrointestinal: see HPI; No abdominal pain, No diarrhea; nausea, vomiting Genitourinary: no symptoms reported LMP: Apr 26, 2018 Musculoskeletal: no symptoms reported Skin: no symptoms reported Psychiatric/Neurological: See HPI, Headache Past [id number] Hx Patient Social History Alcohol Use: Occasionally Uses Recreational Drug Use: Yes (+ FOR METH 05/09/18 ( PT DENIES USE) ) Drug of Choice: + FOR METH 05/09/18 ( PT DENIES USE) Smoking Status: Never a Smoker Recent Foreign Travel: No Contact w/Someone Who Travel: No Immunizations Up To Date Date of Influenza Vaccine: Jan 05, 2012 Past Medical History Surgeries: Yes Appendectomy, Section, Gallbladder, Tubal Ligation Respiratory: Yes (WEATHER-INDUCED ASTHMA) Asthma Cardiac: No Neurological: Yes Headaches /Migraines Reproductive Disorders: No Female Reproductive Disorders: Ovarian Cyst [employer]IST History: Tubal Ligation Genitourinary: No Gastrointestinal: No Musculoskeletal: Yes Arthritis Endocrine: No HEENT: No Cancer: No Psychosocial: Yes Anxiety Family Medical History No Pertinent Family Hx Physical Exam Vital Signs Vital Signs - First Documented 05/09/18 02:10 Temp 97.7 Pulse 85 Resp 18 B/P (MAP) 136/84 (101) Pulse Ox 100 O2 Delivery Room Air Capillary Refill : Height, Weight, BMI Height: 5'8" Weight: 220lbs. oz. 99.319243mv; BMI Method:Stated General Appearance: WD/WN, no apparent distress, obese, other (TEXTING ) HEENT: PERRL/EOMI, TMs normal, pharynx normal, other (POOR DENTITION) Neck: non-tender, full range of motion, supple, normal inspection Cardiovascular: regular rate, rhythm, no murmur Respiratory: normal breath sounds Gastrointestinal: soft Back: normal inspection Extremities: normal inspection Psychiatric: alert, oriented x 3 Crainal Nerves: normal hearing, normal speech, PERRL Coordination/Gait: normal gait Motor/Sensory: no motor deficit, no sensory deficit Skin: normal color, warm/dry Progress/Results/Core Measures Results/Orders Lab Results Laboratory Tests Test 05/09/18 02:20 Range/Units Urine Opiates Screen NEGATIVE NEGATIVE Urine Oxycodone Screen NEGATIVE NEGATIVE Urine Methadone Screen NEGATIVE NEGATIVE Urine Propoxyphene Screen NEGATIVE NEGATIVE Urine Barbiturates Screen NEGATIVE NEGATIVE Ur Tricyclic Antidepressants Screen NEGATIVE NEGATIVE Urine Phencyclidine Screen NEGATIVE NEGATIVE Urine Amphetamines Screen NEGATIVE NEGATIVE Urine Methamphetamines Screen POSITIVE H NEGATIVE Urine Benzodiazepines Screen NEGATIVE NEGATIVE Urine Cocaine Screen NEGATIVE NEGATIVE Urine Cannabinoids Screen NEGATIVE NEGATIVE My Orders Orders - BRIDGETTE MERRILL DO Saline Lock/Iv-Start (05/09/18 02:06) Urine Bedside (05/09/18 02:06) Drug Screen Stat (Urine) (05/09/18 02:06) Saline Lock/Iv-Start (05/09/18 02:06) Lactated Ringers (Lr 1000 Ml Iv Solution (05/09/18 02:06) Ondansetron Injection (Zofran Injectio (05/09/18 02:15) Ketorolac Injection (Toradol Injection) (05/09/18 02:38) Medications Given in ED Current Medications Medications Dose Ordered Sig/Puneet Route Start Time Stop Time Status Last Admin Dose Admin Lactated Ringer's 1,000 ml @ 0 mls/hr Q0M ONCE IV 05/09/18 02:06 05/09/18 02:08 DC 05/09/18 02:36 1,000 MLS/HR Ondansetron HCl 4 mg ONCE ONCE IVP 2/2/19 02:15 05/09/18 02:16 DC 05/09/18 02:36 4 MG Vital Signs/I&O 05/09/18 02:10 Temp 97.7 Pulse 85 Resp 18 B/P (MAP) 136/84 (101) Pulse Ox 100 O2 Delivery Room Air Urine -Bedside: Negative Progress Progress Note : Progress Note NO VOMITING DURING ER STAY HEADACHE EASING AT DISMISSAL Departure Impression Primary Impression: Headache Additional Impression: Illicit drug use Disposition: HOME, SELF-CARE Condition: Improved Departure-Patient Inst. Referrals: NORA LEONARDO DO (PCP) Primary Care Physician DARIAN HELTON (Family) Primary Care Physician Patient Instructions: Drug Abuse and Drug Addiction (DC), Headache, Adult (DC) , Methamphetamine Add. Discharge Instructions: HOME, REST LOTS OF CLEAR LIQUIDS--WATER, BROTH, JELLO, GATORADE NO DRUGS FOLLOW UP WITH [facility] IN 2-3 DAYS IF NO BETTER All discharge instructions reviewed with patient and/or family. Voiced understanding. BRIDGETTE MERRILL DO May 09, 2018 03:18
[2018-05-09 03:29] VITALS: BP 145/101
== END 2018-05-09 03:32 | disposition home or self-care (01) ==
LOC: EDUNIT# 01:18 → ER 01:20
DX: R51 Headache (principal); J45.909 Unspecified asthma, uncomplicated; F41.9 Anxiety disorder, unspecified; F19.10 Other psychoactive substance abuse, uncomplicated; Z98.51 Tubal ligation status; Z87.448 Personal history of other diseases of urinary system; Z90.49 Acquired absence of other specified parts of digestive tract; Z86.69 Personal history of other diseases of the nervous system and sense organs; Z98.890 Other specified postprocedural states
CPT/HCPCS: 80306; 84703

== ENCOUNTER 2018-05-18 01:11 | Emergency (ER) | payer SELFPAY ==
[~2018-05-18] VITALS: Ht 172.7 cm; Wt 105.7 kg
--- OUTSIDE RECORDS SUMMARY | 2018-05-18 01:16 | XMS REPORT | Clinical Summary ---
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
--- OUTSIDE RECORDS SUMMARY | 2018-05-18 01:21 | XMS REPORT | Continuity of Care Document ---
Author Author [facility] Address Unknown Phone Unavailable Allergies Active Description Code Type Severity Reaction Onset Reported/Identified Relationship to Patient Clinical Status Yes No Known Drug Allergies [id number] Drug Allergy Unknown N/A 07/27/2010 Yes doxepin [...] BALTA PEDRAZA MD 784.0 headache 06/17/2011 [facility] MISA 285.9 ANEMIA 06/17/2011 [facility] TREAT[facility] RN, MISA 780.79 FATIGUE 06/17/2011 [facility]AT[facility] RN, MISA 783.1 recent weight gain (___ lbs) [reported] 06/17/2011 [facility]REAT[facility] RN, MISA 784.0 headache 06/17/2011 [facility]AT[facility] RN, MISA 285.9 ANEMIA 06/17/2011 [facility]AT[facility] RN, MISA 780.79 FATIGUE 06/17/2011 [facility] TREATMENT RN, MISA 783.1 recent weight gain (___ lbs) [reported] 06/17/2011 [facility]AT[facility] RN, MISA 784.0 headache 06/17/2011 WHITE DDS, JEREMIE D 285.9 ANEMIA 06/17/2011 WHITE DDS, JEREMIE D 780.79 FATIGUE 06/17/2011 WHITE DDS, JEREMIE D 783.1 recent weight gain (___ lbs) [reported] 06/17/2011 WHITE DDS, JEREMIE D 784.0 headache 06/17/2011 [facility]AT[facility] RN, MISA 285.9 ANEMIA 06/17/2011 [facility]REAT[facility] RN, MISA 780.79 FATIGUE 06/17/2011 [facility]REAT[facility] RN, MISA 783.1 recent weight gain (___ lbs) [reported] 06/17/2011 [facility]REAT[facility] RN, MISA 784.0 headache 06/17/2011 [facility]REAT[facility] RN, MISA 285.9 ANEMIA 06/17/2011 [facility]REAT[facility] RN, MISA 780.79 FATIGUE 06/17/2011 [facility]REAT[facility] RN, MISA 783.1 recent weight gain (___ lbs) [reported] 06/17/2011 [facility] TREAT[facility] RN, MISA 784.0 headache 06/17/2011 [facility] WOUND TREATMENT RN, DARIAN L 285.9 ANEMIA 06/17/2011 [facility] WOUND TREATMENT RN, DARIAN L 780.79 FATIGUE 06/17/2011 MAD[facility] WOUND TREATMENT RN, DARIAN L 783.1 recent weight gain (___ lbs) [reported] 06/17/2011 MADL WOUND TREATMENT RN, DARIAN L 784.0 headache 06/17/2011 LEONARDO DO, [...] LEONARDO DO K 784.0 headache 06/17/2011 [facility] RN, MISA 285.9 ANEMIA 06/17/2011 [facility]AT[facility] RN, MISA 780.79 FATIGUE 06/17/2011 [facility]REAT[facility] RN, MISA 783.1 recent weight gain (___ lbs) [reported] 06/17/2011 [facility]REAT[facility] RN, MISA 784.0 headache 06/17/2011 [facility] WOUND TREATMENT RN, DARIAN L 285.9 ANEMIA 06/17/2011 [facility] WOUND TREATMENT RN, DARIAN L 780.79 FATIGUE 06/17/2011 MADL WOUND TREATMENT RN, DARIAN L 783.1 recent weight gain (___ lbs) [reported] 06/17/2011 MADL WOUND TREATMENT RN, DARIAN L 784.0 headache 06/17/2011 JESSICA CABRERA PHD 285.9 ANEMIA 06/17/2011 JESSICA CABRERA PHD 780.79 FATIGUE 06/17/2011 JESSICA CABRERA PHD 783.1 recent weight gain (___ lbs) [reported] 06/17/2011 JESSICA CABRERA PHD 784.0 headache 06/17/2011 MADL WOUND TREATMENT RN, DARIAN L 285.9 ANEMIA 06/17/2011 MADL WOUND TREATMENT RN, DARIAN L 780.79 FATIGUE 06/17/2011 MADL WOUND TREATMENT RN, DARIAN L 783.1 recent weight gain (___ lbs) [reported] 06/17/2011 MADL WOUND TREATMENT RN, DARIAN L 784.0 headache 06/17/2011 [facility]REAT[facility] RN, MISA 285.9 ANEMIA 06/17/2011 [facility] TREATMENT RN, MISA 780.79 FATIGUE 06/17/2011 [facility] TREATMENT RN, MISA 783.1 recent weight gain (___ lbs) [reported] 06/17/2011 [facility] TREATMENT RN, MISA 784.0 headache 06/17/2011 JESSICA CABRERA PHD 285.9 ANEMIA 06/17/2011 JESSICA CABRERA PHD 780.79 FATIGUE 06/17/2011 RICK ALBERTO, JESSICA A 783.1 recent weight gain (___ lbs) [reported] 06/17/2011 RICK ALBERTO, JESSICA Sabillon 784.0 headache 06/17/2011 [facility]AT[facility] RN, MISA 285.9 ANEMIA 06/17/2011 [facility]REAT[facility] RN, MISA 780.79 FATIGUE 06/17/2011 [facility] TREAT[facility] RN, MISA 783.1 recent weight gain (___ lbs) [reported] 06/17/2011 [facility] TREAT[facility] RN, MISA 784.0 headache 06/17/2011 [facility]AD[facility] WOUND TREATMENT RN, DARIAN L 285.9 ANEMIA 06/17/2011 MAD[facility] WOUND TREATMENT RN, DARIAN L 780.79 FATIGUE 06/17/2011 MADL WOUND TREATMENT RN, DARIAN L 783.1 recent weight gain (___ lbs) [reported] 06/17/2011 MADL WOUND TREATMENT RN, DARIAN L 784.0 headache 06/17/2011 FLOYD WOUND TREATMENT RN, ANGEL R 285.9 ANEMIA 06/17/2011 FLOYD WOUND TREATMENT RN, ANGEL R 780.79 FATIGUE 06/17/2011 FLOYD WOUND TREATMENT RN, ANGEL R 783.1 recent weight gain (___ lbs) [reported] 06/17/2011 FLOYD WOUND TREATMENT RN, ANGEL R 784.0 headache 06/17/2011 MADL WOUND TREATMENT RN, DARIAN L 285.9 ANEMIA 06/17/2011 MADL WOUND TREATMENT RN, DARIAN L 780.79 FATIGUE 06/17/2011 MADL WOUND TREATMENT RN, DARIAN L 783.1 recent weight gain (___ lbs) [reported] 06/17/2011 MADL WOUND TREATMENT RN, DARIAN L 784.0 headache 06/17/2011 [facility]REAT[facility] RN, MISA 285.9 ANEMIA 06/17/2011 [facility]REAT[facility] RN, MISA 780.79 FATIGUE 06/17/2011 [facility] TREATMENT RN, MISA 783.1 recent weight gain (___ lbs) [reported] 06/17/2011 [facility] TREAT[facility] RN, MISA 784.0 headache 06/17/2011 MADL WOUND TREATMENT RN, DARIAN L 285.9 ANEMIA 06/17/2011 MADL WOUND TREATMENT RN, DARIAN L 780.79 FATIGUE 06/17/2011 DARIAN HELTON APRN L 783.1 recent weight gain (___ lbs) [reported] 06/17/2011 DARIAN HELTON APRN L 784.0 headache 06/17/2011 VABUD COOPER MISA 285.9 ANEMIA 06/17/2011 VA COOPER, MISA 780.79 FATIGUE 06/17/2011 VA KENNETH, MISA 783.1 [...] 296.32 MO DEPRESSIVE RECURRENT MODERATE 06/21/2011 [facility] TREAT[facility] RN, MISA 296.32 MO DEPRESSIVE RECURRENT MODERATE 06/21/2011 [facility]REAT[facility] RN, MISA 296.32 MO DEPRESSIVE RECURRENT MODERATE 06/21/2011 JEREMIE ALEX DDS 296.32 MO DEPRESSIVE RECURRENT MODERATE 06/21/2011 [facility]REAT[facility] RN, MISA 296.32 MO DEPRESSIVE RECURRENT MODERATE 06/21/2011 [facility] TREATMENT RN, MISA 296.32 MO DEPRESSIVE RECURRENT MODERATE 06/21/2011 MADL WOUND TREATMENT RN, DARIAN L 296.32 MO DEPRESSIVE RECURRENT MODERATE 06/21/2011 LEONARDO DO NORA K 296.32 MO DEPRESSIVE RECURRENT MODERATE 06/21/2011 LEONARDO DO NORA K 296.32 MO DEPRESSIVE RECURRENT MODERATE 06/21/2011 LEONARDO DO NORA K 296.32 MO DEPRESSIVE RECURRENT MODERATE 06/21/2011 [facility] TREATMENT RN, MISA 296.32 MO DEPRESSIVE RECURRENT MODERATE 06/21/2011 MADL WOUND TREATMENT RN, DARIAN L 296.32 MO DEPRESSIVE RECURRENT MODERATE 06/21/2011 JESSICA CABRERA PHD 296.32 MO DEPRESSIVE RECURRENT MODERATE 06/21/2011 MADL WOUND TREATMENT RN, DARIAN L 296.32 MO DEPRESSIVE RECURRENT MODERATE 06/21/2011 [facility] W[facility] TREATMENT RN, MISA 296.32 MO DEPRESSIVE RECURRENT MODERATE 06/21/2011 RICK ALBERTO, JESSICA Sabillon 296.32 MO DEPRESSIVE RECURRENT MODERATE 06/21/2011 [facility] WOUND TREATMENT RN, MISA 296.32 MO DEPRESSIVE RECURRENT MODERATE 06/21/2011 MADL WOUND TREATMENT RN, DARIAN L 296.32 MO DEPRESSIVE RECURRENT MODERATE 06/21/2011 FLOYD COOPER ANGEL R 296.32 MO DEPRESSIVE RECURRENT MODERATE 06/21/2011 MADL WOUND TREATMENT RN, DARIAN L 296.32 MO DEPRESSIVE RECURRENT MODERATE 06/21/2011 [facility] TREAT[facility] RN, MISA 296.32 MO DEPRESSIVE RECURRENT MODERATE 06/21/2011 MADL WOUND TREATMENT RN, DARIAN L 296.32 MO DEPRESSIVE RECURRENT MODERATE 06/21/2011 [facility] TREATMENT RN, MISA 296.32 MO DEPRESSIVE RECURRENT MODERATE 06/21/2011 [...] UNSPECIFIED SITE OF ANKLE SPRAIN 07/02/2011 [facility] TREATMENT RN, MISA 845.00 UNSPECIFIED SITE OF ANKLE SPRAIN 07/02/2011 [facility] W[facility] TREATMENT RN, MISA 845.00 UNSPECIFIED SITE OF ANKLE SPRAIN 07/02/2011 ISAI CHAMBERS, JEREMIE Pina 845.00 UNSPECIFIED SITE OF ANKLE SPRAIN 07/02/2011 [facility] WOUND TREATMENT RN, MISA 845.00 UNSPECIFIED SITE OF ANKLE SPRAIN 07/02/2011 [facility] WOUND TREATMENT RN, MISA 845.00 UNSPECIFIED SITE OF ANKLE SPRAIN 07/02/2011 MADL WOUND TREATMENT RN, DARIAN L 845.00 UNSPECIFIED SITE OF ANKLE SPRAIN 07/02/2011 LEONARDO DO, NORA K 845.00 UNSPECIFIED SITE OF ANKLE SPRAIN 07/02/2011 LEONARDO DO, NORA K 845.00 UNSPECIFIED SITE OF ANKLE SPRAIN 07/02/2011 LEONARDO DO, NORA K 845.00 UNSPECIFIED SITE OF ANKLE SPRAIN 07/02/2011 [facility] WOUND TREATMENT RN, MISA 845.00 UNSPECIFIED SITE OF ANKLE SPRAIN 07/02/2011 MADL WOUND TREATMENT RN, DARIAN L 845.00 UNSPECIFIED SITE OF ANKLE SPRAIN 07/02/2011 RICK ALBERTO, JESSICA Sabillon 845.00 UNSPECIFIED SITE OF ANKLE SPRAIN 07/02/2011 MADL WOUND TREATMENT RN, DARIAN L 845.00 UNSPECIFIED SITE OF ANKLE SPRAIN 07/02/2011 [facility] WOUND TREATMENT RN, MISA 845.00 UNSPECIFIED SITE OF ANKLE SPRAIN 07/02/2011 RICK ALBERTO, JESSICA Sabillon 845.00 UNSPECIFIED SITE OF ANKLE SPRAIN 07/02/2011 [facility] WOUND TREATMENT RN, MISA 845.00 UNSPECIFIED SITE OF ANKLE SPRAIN 07/02/2011 MADL WOUND TREATMENT RN, DARIAN L 845.00 UNSPECIFIED SITE OF ANKLE SPRAIN 07/02/2011 FLOYD WOUND TREATMENT RN, ANGEL R 845.00 UNSPECIFIED SITE OF ANKLE [...] UNSPECIFIED 07/11/2011 300.00 ANXIETY STATE UNSPECIFIED 07/11/2011 JAOO ALBERT APRN A 300.00 ANXIETY STATE UNSPECIFIED [...] 300.00 ANXIETY STATE UNSPECIFIED 07/11/2011 RICK ALBERTO, JESSIAC Sabillon 300.00 ANXIETY STATE UNSPECIFIED 07/11/2011 BRIANDA LOUIS APRN 300.00 ANXIETY STATE UNSPECIFIED 07/11/2011 LEONARDO DO, NORA K 300.00 ANXIETY STATE UNSPECIFIED 07/11/2011 LEONARDO DO, NORA K 300.00 ANXIETY STATE UNSPECIFIED 07/11/2011 LEONARDO DO, NORA K 300.00 ANXIETY STATE UNSPECIFIED 07/11/2011 MILO SEYMOUR, BALTA 300.00 ANXIETY STATE UNSPECIFIED 07/11/2011 [facility] WOUND TREATMENT RN, MISA 300.00 ANXIETY STATE UNSPECIFIED 07/11/2011 [facility] WOUND TREATMENT RN, MISA 300.00 ANXIETY STATE UNSPECIFIED 07/11/2011 JEREMIE ALEX DDS D 300.00 ANXIETY STATE UNSPECIFIED 07/11/2011 [facility] WOUND TREATMENT RN, MISA 300.00 ANXIETY STATE UNSPECIFIED 07/11/2011 [facility] WOUND TREATMENT RN, MISA 300.00 ANXIETY STATE UNSPECIFIED 07/11/2011 MADL WOUND TREATMENT RN, DARIAN L 300.00 ANXIETY STATE UNSPECIFIED 07/11/2011 LEONARDO DO, NORA K 300.00 ANXIETY STATE UNSPECIFIED 07/11/2011 LEONARDO DO, NORA K 300.00 ANXIETY STATE UNSPECIFIED 07/11/2011 LEONARDO DO, NORA K 300.00 ANXIETY STATE UNSPECIFIED 07/11/2011 [facility] WOUND TREATMENT RN, MISA 300.00 ANXIETY STATE UNSPECIFIED 07/11/2011 MADL WOUND TREATMENT RN, DARIAN L 300.00 ANXIETY STATE UNSPECIFIED 07/11/2011 RICK ALBERTO, JESSICA Sabillon 300.00 ANXIETY STATE UNSPECIFIED 07/11/2011 MADL WOUND TREATMENT RN, DARIAN L 300.00 ANXIETY STATE UNSPECIFIED 07/11/2011 [facility] WOUND TREATMENT RN, MISA 300.00 ANXIETY STATE UNSPECIFIED 07/11/2011 RICK ALBERTO, JESSICA A 300.00 ANXIETY STATE UNSPECIFIED 07/11/2011 [facility] WOUND TREATMENT RN, MISA 300.00 ANXIETY STATE UNSPECIFIED 07/11/2011 MADL WOUND TREATMENT RN, DARIAN L 300.00 ANXIETY STATE UNSPECIFIED 07/11/2011 ANGEL BARRIENTOS APRN 300.00 ANXIETY STATE UNSPECIFIED 07/11/2011 MADL WOUND TREATMENT RN, DARIAN L 300.00 ANXIETY STATE UNSPECIFIED 07/11/2011 [facility] TREATMENT RN, MISA 300.00 ANXIETY STATE UNSPECIFIED 07/11/2011 MADL WOUND TREATMENT RN, DARIAN L 300.00 ANXIETY STATE UNSPECIFIED 07/11/2011 [...] APRN 728.71 PLANTAR FASCIAL FIBROMATOSIS 07/18/2011 NORA LEOANRDO DO 728.71 PLANTAR FASCIAL FIBROMATOSIS 07/18/2011 NORA LEONARDO DO 728.71 PLANTAR FASCIAL FIBROMATOSIS 07/18/2011 NORA LEONARDO DO 728.71 PLANTAR FASCIAL FIBROMATOSIS 07/18/2011 BALTA PEDRAZA MD 728.71 PLANTAR FASCIAL FIBROMATOSIS 07/18/2011 MISA DE DIOS APRN 728.71 PLANTAR FASCIAL FIBROMATOSIS 07/18/2011 [facility] WOUND TREATMENT RN, MISA 728.71 PLANTAR FASCIAL FIBROMATOSIS 07/18/2011 ISAI SPARKSS, JEREMIE Pina 728.71 PLANTAR FASCIAL FIBROMATOSIS 07/18/2011 [facility] WOUND TREATMENT RN, MISA 728.71 PLANTAR FASCIAL FIBROMATOSIS 07/18/2011 [facility] WOUND TREATMENT RN, MISA 728.71 PLANTAR FASCIAL FIBROMATOSIS 07/18/2011 MADL WOUND TREATMENT RN, DARIAN L 728.71 PLANTAR FASCIAL FIBROMATOSIS 07/18/2011 LEONARDO DOTREVORA K 728.71 PLANTAR FASCIAL FIBROMATOSIS 07/18/2011 LEONARDO DOTREVORA K 728.71 PLANTAR FASCIAL FIBROMATOSIS 07/18/2011 LEONARDO DOTREVORA K 728.71 PLANTAR FASCIAL FIBROMATOSIS 07/18/2011 [facility] WOUND TREATMENT RN, MISA 728.71 PLANTAR FASCIAL FIBROMATOSIS 07/18/2011 NATHALY [...] L 728.71 PLANTAR FASCIAL FIBROMATOSIS 07/18/2011 [facility] WOUND TREATMENT RN, MISA 728.71 PLANTAR FASCIAL FIBROMATOSIS 07/18/2011 DANIE COOPER DARIAN L 728.71 PLANTAR FASCIAL FIBROMATOSIS 07/18/2011 [facility] WOUND TREATMENT RN, MISA 728.71 PLANTAR FASCIAL FIBROMATOSIS 07/18/2011 728.71 [...] MISA 300.02 AN GEN ANXIETY 07/29/2011 MADL WOUND TREATMENT RN, DARIAN L 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 07/29/2011 MADL WOUND TREATMENT RN, DARIAN L 300.02 AN GEN ANXIETY 07/29/2011 [...] MISA 300.02 AN GEN ANXIETY 07/29/2011 MADL WOUND TREATMENT RN, DARIAN L 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 07/29/2011 MADL WOUND TREATMENT RN, DARIAN L 300.02 AN GEN ANXIETY 07/29/2011 RICK PHD, JESSICA A 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 07/29/2011 RICK ALBERTO, JESSICA A 300.02 AN GEN ANXIETY 07/29/2011 MADL WOUND TREATMENT RN, DARIAN L 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 07/29/2011 MADL WOUND TREATMENT RN, DARIAN L 300.02 AN GEN ANXIETY 07/29/2011 [...] RECURRENT 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 BEHAVIOR 07/29/2011 DANIE RIVERAMally DARIAN L 300.02 AN GEN ANXIETY [...] MD 724.2 lower back pain 08/26/2011 [facility] W[facility] TREATMENT RN, MISA 462 Pharyngitis Acute 08/26/2011 [facility] WOUND TREATMENT RN, MISA 724.2 lower back pain 08/26/2011 [facility] WOUND TREATMENT RN, MISA 462 Pharyngitis Acute 08/26/2011 [facility] WOUND TREATMENT RN, MISA 724.2 lower back pain 08/26/2011 WHITE DDS, JEREMIE D 462 Pharyngitis Acute 08/26/2011 WHITE DDS, JEREMIE D 724.2 lower back pain 08/26/2011 AV WOUND TREATMENT RN, MISA 462 Pharyngitis Acute 08/26/2011 [facility] WOUND TREATMENT RN, MISA 724.2 lower back pain 08/26/2011 [facility] WOUND TREATMENT RN, MISA 462 Pharyngitis Acute 08/26/2011 [facility] TREATMENT RN, MISA 724.2 lower back pain 08/26/2011 MADL WOUND TREATMENT RN, DARIAN L 462 Pharyngitis Acute 08/26/2011 MADL WOUND TREATMENT RN, DARIAN L 724.2 lower back pain 08/26/2011 LEONARDO DO, NORA K 462 Pharyngitis Acute 08/26/2011 LEONARDO DO, NORA K 724.2 lower back pain 08/26/2011 LEONARDO DO, NORA K 462 Pharyngitis Acute 08/26/2011 LEONARDO DO, NORA K 724.2 lower back pain 08/26/2011 LEONARDO DO, NORA K 462 Pharyngitis Acute 08/26/2011 LEONARDO DO, NORA K 724.2 lower back pain 08/26/2011 [facility] WOUND TREATMENT RN, MISA 462 Pharyngitis Acute 08/26/2011 [facility] WOUND TREATMENT RN, MISA 724.2 lower back pain 08/26/2011 MADL WOUND TREATMENT RN, DARIAN L 462 Pharyngitis Acute 08/26/2011 MADL WOUND TREATMENT RN, DARIAN L 724.2 lower back pain 08/26/2011 RICK PHD, JESSICA A 462 Pharyngitis Acute 08/26/2011 RICK PHD, JESSICA A 724.2 lower back pain 08/26/2011 MADL WOUND TREATMENT RN, DARIAN L 462 Pharyngitis Acute 08/26/2011 MADL WOUND TREATMENT RN, DARIAN L 724.2 lower back pain 08/26/2011 [facility] WOUND TREATMENT RN, MISA 462 Pharyngitis Acute 08/26/2011 [facility] WOUND TREATMENT RN, MISA 724.2 lower back pain 08/26/2011 RICK PHD, JESSICA A 462 Pharyngitis Acute 08/26/2011 RICK PHD, JESSICA A 724.2 lower back pain 08/26/2011 [facility] WOUND TREATMENT RN, MISA 462 Pharyngitis Acute 08/26/2011 [facility] WOUND TREATMENT RN, MISA 724.2 lower back pain 08/26/2011 MADL WOUND TREATMENT RN, DARIAN L 462 Pharyngitis Acute 08/26/2011 MADL WOUND TREATMENT RN, DARIAN L 724.2 lower back pain 08/26/2011 FLOYD WOUND TREATMENT RN, ANGEL R 462 Pharyngitis Acute 08/26/2011 FLOYD WOUND TREATMENT RN, ANGEL R 724.2 lower back pain 08/26/2011 MADL WOUND TREATMENT RN, DARIAN L 462 Pharyngitis Acute 08/26/2011 MADL WOUND TREATMENT RN, DARIAN L 724.2 lower back pain 08/26/2011 [facility]OUND TREATMENT RN, MISA 462 Pharyngitis Acute 08/26/2011 [facility] WOUND TREATMENT RN, MISA 724.2 lower back pain 08/26/2011 MADL WOUND TREATMENT RN, DARIAN L 462 Pharyngitis Acute 08/26/2011 MADL WOUND TREATMENT RN, DARIAN L 724.2 lower back pain 08/26/2011 [facility] WOUND TREATMENT RN, MISA 462 Pharyngitis Acute 08/26/2011 [facility] WOUND TREATMENT RN, MISA 724.2 lower back pain 08/26/2011 462 [...] JESSICA Sabillon 296.89 MO BIPOLAR II 08/28/2011 BRIANDA LOUIS APRN 296.89 MO BIPOLAR II 08/28/2011 NORA LEONARDO DO 296.89 MO BIPOLAR II 08/28/2011 NORA LEONARDO DO 296.89 MO BIPOLAR II 08/28/2011 NORA LEONARDO DO K 296.89 MO BIPOLAR II 08/28/2011 MILO SEYMOUR, BALTA 296.89 MO BIPOLAR II 08/28/2011 [facility] WOUND TREATMENT RN, MISA 296.89 MO BIPOLAR II 08/28/2011 [facility] WOUND TREATMENT RN, MISA 296.89 MO BIPOLAR II 08/28/2011 JEREMIE ALEX DDS 296.89 MO BIPOLAR II 08/28/2011 [facility] WOUND TREATMENT RN, MISA 296.89 MO BIPOLAR II 08/28/2011 [facility] WOUND TREATMENT RN, MISA 296.89 MO BIPOLAR II 08/28/2011 DARIAN HELTON APRN 296.89 MO BIPOLAR II 08/28/2011 LEONARDO NORA BOATENG K 296.89 MO BIPOLAR II 08/28/2011 LEONARDO DO, NORA K 296.89 MO BIPOLAR II 08/28/2011 LEONARDO DO, NORA K 296.89 MO BIPOLAR II 08/28/2011 VA WOUND TREATMENT RN, MISA 296.89 MO BIPOLAR II 08/28/2011 MADL WOUND TREATMENT RN, DARIAN L 296.89 MO BIPOLAR II 08/28/2011 RICK ALBERTO, JESSICA Sabillon 296.89 MO BIPOLAR II 08/28/2011 MADL WOUND TREATMENT RN, DARIAN L 296.89 MO BIPOLAR II 08/28/2011 [facility] WOUND TREATMENT RN, MISA 296.89 MO BIPOLAR II 08/28/2011 RICK PHD, JESSICA A 296.89 MO BIPOLAR II 08/28/2011 VA WOUND TREATMENT RN, MISA 296.89 MO BIPOLAR II 08/28/2011 MADL WOUND TREATMENT RN, DARIAN L 296.89 MO BIPOLAR II 08/28/2011 FLOYD COOPER ANGEL R 296.89 MO BIPOLAR II 08/28/2011 MADL WOUND TREATMENT RN, DARIAN L 296.89 MO BIPOLAR II 08/28/2011 [facility] WOUND TREATMENT RN, MISA 296.89 MO BIPOLAR II 08/28/2011 MADL WOUND TREATMENT RN, DARIAN L 296.89 MO BIPOLAR II 08/28/2011 VA WOUND TREATMENT RN, MISA 296.89 MO BIPOLAR II 08/28/2011 296.89 [...] ALBERTO, JESSICA Sabillon 729.1 FIBROMYALGIA 12/30/2011 BRIANDA LOUSI APRN 729.1 FIBROMYALGIA 12/30/2011 NORA LEONARDO DO 729.1 FIBROMYALGIA 12/30/2011 NORA LEONARDO DO 729.1 FIBROMYALGIA 12/30/2011 TREVOR LEONARDO DOA K 729.1 FIBROMYALGIA 12/30/2011 BALTA PEDRAZA MD 729.1 FIBROMYALGIA 12/30/2011 MISA DE DIOS APRN 729.1 FIBROMYALGIA 12/30/2011 VA COOPER MISA 729.1 FIBROMYALGIA 12/30/2011 JEREMIE ALEX DDS 729.1 FIBROMYALGIA 12/30/2011 VABUD COOPER MISA 729.1 FIBROMYALGIA 12/30/2011 VA COOPER MISA 729.1 FIBROMYALGIA 12/30/2011 RAMON HELTON APRNA Sandor 729.1 FIBROMYALGIA 12/30/2011 LEONARDO TREVOR BOATENGA K 729.1 FIBROMYALGIA 12/30/2011 LEONARDO DO NORA K 729.1 FIBROMYALGIA 12/30/2011 TREVOR LEONARDO DOA K 729.1 FIBROMYALGIA 12/30/2011 VA COOPER MISA 729.1 FIBROMYALGIA 12/30/2011 RAMON HELTON APRNA L 729.1 FIBROMYALGIA 12/30/2011 RICK ALBERTO, JESSICA Sabillon 729.1 FIBROMYALGIA 12/30/2011 MADL WOUND TREATMENT RN, DARIAN L 729.1 FIBROMYALGIA 12/30/2011 VA WOUND TREATMENT RN, MISA 729.1 FIBROMYALGIA 12/30/2011 RICK ALBERTO, JESSICA Sabillon 729.1 FIBROMYALGIA 12/30/2011 VA WOUND TREATMENT RN, MISA 729.1 FIBROMYALGIA 12/30/2011 MADL WOUND TREATMENT RN, DARIAN L 729.1 FIBROMYALGIA 12/30/2011 FLOYD WOUND TREATMENT RN, ANGEL R 729.1 FIBROMYALGIA 12/30/2011 MADL WOUND TREATMENT RN, DARIAN L 729.1 FIBROMYALGIA 12/30/2011 [facility] WOUND TREATMENT RN, MISA 729.1 FIBROMYALGIA 12/30/2011 MADL WOUND TREATMENT RN, DARIAN L 729.1 FIBROMYALGIA 12/30/2011 VA WOUND TREATMENT RN, MISA 729.1 FIBROMYALGIA 12/30/2011 729.1 FIBROMYALGIA 01/17/2012 [...] BALTA PEDRAZA MD 724.3 SCIATICA 04/23/2012 VA WOUND TREATMENT RN, MISA 724.3 SCIATICA 04/23/2012 VA WOUND TREATMENT RN, MISA 724.3 SCIATICA 04/23/2012 JEREMIE ALEX DDS 724.3 SCIATICA 04/23/2012 VA WOUND TREATMENT RN, MISA 724.3 SCIATICA 04/23/2012 VA WOUND TREATMENT RN, MISA 724.3 SCIATICA 04/23/2012 MADL WOUND TREATMENT RN, DARIAN L 724.3 SCIATICA 04/23/2012 LEONARDO DO, NORA K 724.3 SCIATICA 04/23/2012 LEONARDO DO, NORA K 724.3 SCIATICA 04/23/2012 LEONARDO DO, NORA K 724.3 SCIATICA 04/23/2012 VA WOUND TREATMENT RN, MISA 724.3 SCIATICA 04/23/2012 MADL WOUND TREATMENT RN, DARIAN L 724.3 SCIATICA 04/23/2012 RICK PHD, JESSICA Sabillon 724.3 SCIATICA 04/23/2012 MADL WOUND TREATMENT RN, DARIAN L 724.3 SCIATICA 04/23/2012 VA WOUND TREATMENT RN, MISA 724.3 SCIATICA 04/23/2012 RICK PHD, JESSICA Sabillon 724.3 SCIATICA 04/23/2012 VA WOUND TREATMENT RN, MISA 724.3 SCIATICA 04/23/2012 MADL WOUND TREATMENT RN, DARIAN L 724.3 SCIATICA 04/23/2012 FLOYD WOUND TREATMENT RN, ANGEL R 724.3 SCIATICA 04/23/2012 MADL WOUND TREATMENT RN, DARIAN L 724.3 SCIATICA 04/23/2012 VA WOUND TREATMENT RN, MISA 724.3 SCIATICA 04/23/2012 MADL WOUND TREATMENT RN, DARIAN L 724.3 SCIATICA 04/23/2012 [facility] TREATMENT RN, MISA 724.3 SCIATICA 07/17/2012 728.85 MUSCLE SPASM [...] PEDRAZA MD 728.85 MUSCLE SPASM 07/17/2012 [facility]REAT[facility] RN, MISA 728.85 MUSCLE SPASM 07/17/2012 [facility] TREAT[facility] RN, MISA 728.85 MUSCLE SPASM 07/17/2012 JEREMIE ALEX DDS 728.85 MUSCLE SPASM 07/17/2012 [facility] TREAT[facility] RN, MISA 728.85 MUSCLE SPASM 07/17/2012 [facility] TREAT[facility] RN, MISA 728.85 MUSCLE SPASM 07/17/2012 DARIAN HELTON APRN 728.85 MUSCLE SPASM 07/17/2012 LEONARDO DO NORA K 728.85 MUSCLE SPASM 07/17/2012 LEONARDO DO NORA K 728.85 MUSCLE SPASM 07/17/2012 LEONARDO DO NORA K 728.85 MUSCLE SPASM 07/17/2012 [facility] TREAT[facility] RN, MISA 728.85 MUSCLE SPASM 07/17/2012 [facility] WOUND TREATMENT RN, DARIAN L 728.85 MUSCLE SPASM 07/17/2012 RICK ALBERTO, JESSICA Sabillon 728.85 MUSCLE SPASM 07/17/2012 [facility] WOUND TREATMENT RN, DARIAN L 728.85 MUSCLE SPASM 07/17/2012 [facility]REAT[facility] RN, MISA 728.85 MUSCLE SPASM 07/17/2012 RICK ALBERTO, JESSICA Sabillon 728.85 MUSCLE SPASM 07/17/2012 [facility] TREAT[facility] RN, MISA 728.85 MUSCLE SPASM 07/17/2012 [facility] WOUND TREATMENT RN, DARIAN L 728.85 MUSCLE SPASM 07/17/2012 F[facility]YD WOUND TREATMENT RN, ANGEL R 728.85 MUSCLE SPASM 07/17/2012 [facility] WOUND TREATMENT RN, DARIAN L 728.85 MUSCLE SPASM 07/17/2012 [facility]REAT[facility] RN, MISA 728.85 MUSCLE SPASM 07/17/2012 [facility] WOUND TREATMENT RN, DARIAN L 728.85 MUSCLE SPASM 07/17/2012 [facility]AT[facility] RN, MISA 728.85 MUSCLE SPASM 08/23/2012 JEANINE SEYMOUR, [...] PEDRAZA MD 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 08/25/2012 [facility]AT[facility] RN, MISA 296.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 08/25/2012 [facility]REAT[facility] RN, MISA 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 08/25/2012 [facility] TREAT[facility] RN, MISA 296.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 08/25/2012 [facility] TREAT[facility] RN, MISA 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 08/25/2012 WHITE DDS, JEREMIE D 296.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 08/25/2012 WHITE DDS, JEREMIE D 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 08/25/2012 [facility] RN, MISA 296.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 08/25/2012 [facility] TREAT[facility] RN, MISA 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 08/25/2012 [facility] TREAT[facility] RN, MISA 296.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 08/25/2012 [facility] TREAT[facility] RN, MISA 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 08/25/2012 [facility] WOUND TREATMENT RN, DARIAN L 296.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 08/25/2012 [facility] WOUND TREATMENT RN, DARIAN L 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 08/25/2012 LEONARDO DO, NORA K 296.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 08/25/2012 LEONARDO DO, NORA K 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 08/25/2012 LEONARDO DO, NORA K 296.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 08/25/2012 LEONARDO DO, NORA K 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 08/25/2012 LEONARDO DO, NORA K 296.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 08/25/2012 LEONARDO DO, NORA K 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 08/25/2012 [facility] RN, MISA 296.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 08/25/2012 [facility] TREAT[facility] RN, MISA 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 08/25/2012 [facility]AT[facility] RN, MISA 296.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 08/25/2012 [facility] TREAT[facility] RN, MISA 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 08/25/2012 [facility] WOUND TREATMENT RN, DARIAN L 296.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 08/25/2012 [facility] WOUND TREATMENT RN, DARIAN L 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 08/25/2012 FLO[facility]D WOUND TREATMENT RN, ANGEL R 296.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 08/25/2012 F[facility]YD WOUND TREATMENT RN, ANGEL R 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 08/25/2012 [facility] WOUND TREATMENT RN, DARIAN L 296.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 08/25/2012 [facility] WOUND TREATMENT RN, DARIAN L 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 08/25/2012 [facility] RN, MISA 296.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 08/25/2012 [facility] TREAT[facility] RN, MISA 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 08/25/2012 [facility] WOUND TREATMENT RN, DARIAN L 296.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 08/25/2012 [facility] WOUND TREATMENT RN, DARIAN L 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 08/25/2012 [facility] RN, MISA 296.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 08/25/2012 [facility] RN, MISA 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 08/26/2012 296.80 MO [...] BALTA 296.80 MO BIPOLAR NOS 08/26/2012 [facility] TREATMENT RN, MISA 296.80 MO BIPOLAR NOS 08/26/2012 [facility]REAT[facility] RN, MISA 296.80 MO BIPOLAR NOS 08/26/2012 JEREMIE ALEX DDS 296.80 MO BIPOLAR NOS 08/26/2012 [facility] TREATMENT RN, MISA 296.80 MO BIPOLAR NOS 08/26/2012 [facility] TREATMENT RN, MISA 296.80 MO BIPOLAR NOS 08/26/2012 MADL WOUND TREATMENT RN, DARIAN L 296.80 MO BIPOLAR NOS 08/26/2012 LEONARDO DO, NORA K 296.80 MO BIPOLAR NOS 08/26/2012 LEONARDO DO, NORA K 296.80 MO BIPOLAR NOS 08/26/2012 LEONARDO DO, NORA K 296.80 MO BIPOLAR NOS 08/26/2012 [facility] W[facility] TREATMENT RN, MISA 296.80 MO BIPOLAR NOS 08/26/2012 MADL WOUND TREATMENT RN, DARIAN L 296.80 MO BIPOLAR NOS 08/26/2012 RICK PHD, JESSICA A 296.80 MO BIPOLAR NOS 08/26/2012 MADL WOUND TREATMENT RN, DARIAN L 296.80 MO BIPOLAR NOS 08/26/2012 [facility] TREAT[facility] RN, MISA 296.80 MO BIPOLAR NOS 08/26/2012 RICK PHD, JESSICA A 296.80 MO BIPOLAR NOS 08/26/2012 [facility] TREATMENT RN, MISA 296.80 MO BIPOLAR NOS 08/26/2012 MADL WOUND TREATMENT RN, DARIAN L 296.80 MO BIPOLAR NOS 08/26/2012 ANGEL BARRIENTOS APRN 296.80 MO BIPOLAR NOS 08/26/2012 MADL WOUND TREATMENT RN, DARIAN L 296.80 MO BIPOLAR NOS 08/26/2012 [facility] TREAT[facility] RN, MISA 296.80 MO BIPOLAR NOS 08/26/2012 MADL WOUND TREATMENT RN, DARIAN L 296.80 MO BIPOLAR NOS 08/26/2012 [...] MD V58.69 HIGH RISK MEDICATION 12/15/2012 [facility] TREAT[facility] RN, MISA V58.69 HIGH RISK MEDICATION 12/15/2012 [facility] TREAT[facility] RN, MISA V58.69 HIGH RISK MEDICATION 12/15/2012 ISAI SPARKSSJEREMIE V58.69 HIGH RISK MEDICATION 12/15/2012 [facility] TREAT[facility] RN, MISA V58.69 HIGH RISK MEDICATION 12/15/2012 [facility] TREAT[facility] RN, MISA V58.69 HIGH RISK MEDICATION 12/15/2012 DARIAN HELTON APRN V58.69 HIGH RISK MEDICATION 12/15/2012 LEONARDO DO, NORA K V58.69 HIGH RISK MEDICATION 12/15/2012 LEONARDO DO, NORA K V58.69 HIGH RISK MEDICATION 12/15/2012 LEONARDO DO, NORA K V58.69 HIGH RISK MEDICATION 12/15/2012 [facility] TREATMENT RN, MISA V58.69 HIGH RISK MEDICATION 12/15/2012 MADL WOUND TREATMENT RN, DARIAN L V58.69 HIGH RISK MEDICATION 12/15/2012 RICK PHD, JESSICA A V58.69 HIGH RISK MEDICATION 12/15/2012 MADL WOUND TREATMENT RN, DARIAN L V58.69 HIGH RISK MEDICATION 12/15/2012 [facility] TREAT[facility] RN, IMSA V58.69 HIGH RISK MEDICATION 12/15/2012 RICK PHD, JESSICA A V58.69 HIGH RISK MEDICATION 12/15/2012 [facility] TREAT[facility] RN, MISA V58.69 HIGH RISK MEDICATION 12/15/2012 MADL WOUND TREATMENT RN, DARIAN L V58.69 HIGH RISK MEDICATION 12/15/2012 FLOYD WOUND TREATMENT RN, ANGEL R V58.69 HIGH RISK MEDICATION 12/15/2012 MADL WOUND TREATMENT RN, DARIAN L V58.69 HIGH RISK MEDICATION 12/15/2012 [facility] TREAT[facility] RN, MISA V58.69 HIGH RISK MEDICATION 12/15/2012 MADL WOUND TREATMENT RN, DARIAN L V58.69 HIGH RISK MEDICATION 12/15/2012 [facility] TREAT[facility] RN, MISA V58.69 HIGH RISK MEDICATION 12/21/2012 JOAO ALEBRT APRN A V72.41 TEST NEGATIVE RESULT 12/21/2012 [...] TEST NEGATIVE RESULT 12/21/2012 VALERIANO SEYMOUR, DOMINIC Iversno V74.5 STD SCREEN 12/21/2012 VALERIANO SEYMOUR, DOMINIC [...] PEDRAZA MD V74.5 STD SCREEN 12/21/2012 [facility] TREAT[facility] RN, MISA V72.41 TEST NEGATIVE RESULT 12/21/2012 [facility] TREATMENT RN, MISA V74.5 STD SCREEN 12/21/2012 [facility] TREATMENT RN, MISA V72.41 TEST NEGATIVE RESULT 12/21/2012 [facility] TREATMENT RN, MISA V74.5 STD SCREEN 12/21/2012 ISAI SPARKSSJEREMIE V72.41 TEST NEGATIVE RESULT 12/21/2012 ISAI SPARKSSJEREMIE V74.5 STD SCREEN 12/21/2012 [facility] TREATMENT RN, MISA V72.41 TEST NEGATIVE RESULT 12/21/2012 [facility] TREATMENT RN, MISA V74.5 STD SCREEN 12/21/2012 [facility] TREATMENT RN, MISA V72.41 TEST NEGATIVE RESULT 12/21/2012 [facility] TREATMENT RN, MISA V74.5 STD SCREEN 12/21/2012 MADL WOUND TREATMENT RN, DARIAN L V72.41 TEST NEGATIVE RESULT 12/21/2012 MADL WOUND TREATMENT RN, DARIAN L V74.5 STD SCREEN 12/21/2012 LEONARDO DO, NORA K V72.41 TEST NEGATIVE RESULT 12/21/2012 LEONARDO DO, NORA K V74.5 STD SCREEN 12/21/2012 LEONARDO DO, NORA K V72.41 TEST NEGATIVE RESULT 12/21/2012 LEONARDO DO, NORA K V74.5 STD SCREEN 12/21/2012 LEONARDO DO, NORA K V72.41 TEST NEGATIVE RESULT 12/21/2012 LEONARDO DO, NORA K V74.5 STD SCREEN 12/21/2012 [facility] WOUND TREATMENT RN, MISA V72.41 TEST NEGATIVE RESULT 12/21/2012 [facility] TREATMENT RN, MISA V74.5 STD SCREEN 12/21/2012 MADL WOUND TREATMENT RN, DARIAN L V72.41 TEST NEGATIVE RESULT 12/21/2012 MADL WOUND TREATMENT RN, DARIAN L V74.5 STD SCREEN 12/21/2012 RICK ALBERTO, JESSICA Sabillon V72.41 TEST NEGATIVE RESULT 12/21/2012 RICK ALBERTO, JESSICA Sabillon V74.5 STD SCREEN 12/21/2012 MADL WOUND TREATMENT RN, DARIAN L V72.41 TEST NEGATIVE RESULT 12/21/2012 MADL WOUND TREATMENT RN, DARIAN L V74.5 STD SCREEN 12/21/2012 [facility] TREATMENT RN, MISA V72.41 TEST NEGATIVE RESULT 12/21/2012 [facility] TREATMENT RN, MISA V74.5 STD SCREEN 12/21/2012 JESSICA CABRERA PHD V72.41 TEST NEGATIVE RESULT 12/21/2012 RICK ALBERTO, JESSICA Sabillon V74.5 STD SCREEN 12/21/2012 [facility] TREATMENT RN, MISA V72.41 TEST NEGATIVE RESULT 12/21/2012 [facility] TREATMENT RN, MISA V74.5 STD SCREEN 12/21/2012 MADL WOUND TREATMENT RN, DARIAN L V72.41 TEST NEGATIVE RESULT 12/21/2012 MADL WOUND TREATMENT RN, DARIAN L V74.5 STD SCREEN 12/21/2012 FLOYD WOUND TREATMENT RN, ANGEL R V72.41 TEST NEGATIVE RESULT 12/21/2012 FLOYD WOUND TREATMENT RN, ANGEL R V74.5 STD SCREEN 12/21/2012 MADL WOUND TREATMENT RN, DARIAN L V72.41 TEST NEGATIVE RESULT 12/21/2012 MADL WOUND TREATMENT RN, ADRIAN L V74.5 STD SCREEN 12/21/2012 [facility] TREATMENT RN, MISA V72.41 TEST NEGATIVE RESULT 12/21/2012 [facility] TREATMENT RN, MISA V74.5 STD SCREEN 12/21/2012 MADL WOUND TREATMENT RN, DARIAN L V72.41 TEST NEGATIVE RESULT 12/21/2012 MADL WOUND TREATMENT RN, DARIAN L V74.5 STD SCREEN 12/21/2012 [facility] TREAT[facility] RN, MISA V72.41 TEST NEGATIVE RESULT 12/21/2012 [facility] TREAT[facility] RN, MISA V74.5 STD SCREEN 12/21/2012 GARFIELD BRIDGETTE [...] Garibay Ot 784.0 HEADACHE 03/17/2013 NOBLE GOMEZ WOUND TREATMENT RN Ot 923.21 CONTUSION OF WRIST 03/17/2013 NOBLE GOMEZ WOUND TREATMENT RN Ot 959.3 ELB/FOREARM/WRST INJ NOS 03/17/2013 NOBLE GOMEZ WOUND TREATMENT RN Ot E000.8 OTHER EXTERNAL CAUSE STATUS 03/17/2013 NOBLE GOMEZ WOUND TREATMENT RN Ot E849.0 ACCIDENT IN HOME 03/17/2013 NOBLE GOMEZ WOUND TREATMENT RN Ot E917.4 STAT OB W/O SUB FALL [...] PEDRAZA MD 719.43 PAIN- WRIST 03/18/2013 [facility] TREAT[facility] RN, MISA 719.43 PAIN- WRIST 03/18/2013 [facility] TREATMENT RN, MISA 719.43 PAIN- WRIST 03/18/2013 JEREMIE ALEX DDS 719.43 PAIN- WRIST 03/18/2013 [facility] TREATMENT RN, MISA 719.43 PAIN- WRIST 03/18/2013 [facility] TREATMENT RN, MISA 719.43 PAIN- WRIST 03/18/2013 DARIAN HELTON APRN 719.43 PAIN- WRIST 03/18/2013 LEONARDO DO NORA K 719.43 PAIN- WRIST 03/18/2013 LEONARDO DO NORA K 719.43 PAIN- WRIST 03/18/2013 LEONARDO DO, NORA K 719.43 PAIN- WRIST 03/18/2013 [facility] TREATMENT RN, MISA 719.43 PAIN- WRIST 03/18/2013 MADL WOUND TREATMENT RN, DARIAN L 719.43 PAIN- WRIST 03/18/2013 RICK ALBERTO, JESSICA Sabillon 719.43 PAIN- WRIST 03/18/2013 MADL WOUND TREATMENT RN, DARIAN L 719.43 PAIN- WRIST 03/18/2013 [facility] TREATMENT RN, MISA 719.43 PAIN- WRIST 03/18/2013 RICK ALBERTO, JESSICA Sabillon 719.43 PAIN- WRIST 03/18/2013 [facility] TREATMENT RN, MISA 719.43 PAIN- WRIST 03/18/2013 MADL WOUND TREATMENT RN, DARIAN L 719.43 PAIN- WRIST 03/18/2013 FLOYD WOUND TREATMENT RN, ANGEL R 719.43 PAIN- WRIST 03/18/2013 MADL WOUND TREATMENT RN, DARIAN L 719.43 PAIN- WRIST 03/18/2013 [facility] TREATMENT RN, MISA 719.43 PAIN- WRIST 03/18/2013 MADL WOUND TREATMENT RN, DARIAN L 719.43 PAIN- WRIST 03/18/2013 [facility] TREATMENT RN, MISA 719.43 PAIN- WRIST 06/04/2013 DOMINIC BAL [...] BALTA PEDRAZA MD 788.1 DYSURIA 06/04/2013 [facility] W[facility] TREATMENT RN, MISA 462 SORE THROAT ACUTE 06/04/2013 [facility] W[facility] TREATMENT RN, MISA 719.46 joint pain in both knees 06/04/2013 [facility] W[facility] TREATMENT RN, MISA 788.1 DYSURIA 06/04/2013 [facility] W[facility] TREATMENT RN, MISA 462 SORE THROAT ACUTE 06/04/2013 [facility] W[facility] TREATMENT RN, MISA 719.46 joint pain in both knees 06/04/2013 [facility] W[facility] TREATMENT RN, MISA 788.1 DYSURIA 06/04/2013 WHITE DDS, JEREMIE Pina 462 SORE THROAT ACUTE 06/04/2013 WHITE DDS, JEREMIE Pina 719.46 joint pain in both knees 06/04/2013 WHITE DDS, JEREMIE D 788.1 DYSURIA 06/04/2013 [facility] TREATMENT RN, MISA 462 SORE THROAT ACUTE 06/04/2013 AV WOUND TREATMENT RN, MISA 719.46 joint pain in both knees 06/04/2013 [facility] TREATMENT RN, MISA 788.1 DYSURIA 06/04/2013 [facility] W[facility] TREATMENT RN, MISA 462 SORE THROAT ACUTE 06/04/2013 [facility] W[facility] TREATMENT RN, MISA 719.46 joint pain in both knees 06/04/2013 [facility] W[facility] TREATMENT RN, MISA 788.1 DYSURIA 06/04/2013 MADL WOUND TREATMENT RN, DARIAN L 462 SORE THROAT ACUTE 06/04/2013 MADL WOUND TREATMENT RN, DARIAN L 719.46 joint pain in both knees 06/04/2013 MADL WOUND TREATMENT RN, DARIAN L 788.1 DYSURIA 06/04/2013 LEONARDO DO, [...] DO, NORA K 788.1 DYSURIA 06/04/2013 [facility] TREATMENT RN, MISA 462 SORE THROAT ACUTE 06/04/2013 [facility] W[facility] TREATMENT RN, MISA 719.46 joint pain in both knees 06/04/2013 [facility] W[facility] TREATMENT RN, MISA 788.1 DYSURIA 06/04/2013 MADL WOUND TREATMENT RN, DARIAN L 462 SORE THROAT ACUTE 06/04/2013 MADL WOUND TREATMENT RN, DARIAN L 719.46 joint pain in both knees 06/04/2013 MADL WOUND TREATMENT RN, DARIAN L 788.1 DYSURIA 06/04/2013 JESSICA CABRERA PHD 462 SORE THROAT ACUTE 06/04/2013 JESSICA CABRERA PHD 719.46 joint pain in both knees 06/04/2013 RICK ALBERTO, JESSICA Sabillon 788.1 DYSURIA 06/04/2013 MADL WOUND TREATMENT RN, DARIAN L 462 SORE THROAT ACUTE 06/04/2013 MADL WOUND TREATMENT RN, DARIAN L 719.46 joint pain in both knees 06/04/2013 MADL WOUND TREATMENT RN, DARIAN L 788.1 DYSURIA 06/04/2013 [facility] TREATMENT RN, MISA 462 SORE THROAT ACUTE 06/04/2013 [facility] W[facility] TREATMENT RN, MISA 719.46 joint pain in both knees 06/04/2013 [facility] W[facility] TREATMENT RN, MISA 788.1 DYSURIA 06/04/2013 JESSICA CABRERA PHD 462 SORE THROAT ACUTE 06/04/2013 RICK ALBERTO, JESSICA Sabillon 719.46 joint pain in both knees 06/04/2013 RICK ALBERTO, JESSICA Sabillon 788.1 DYSURIA 06/04/2013 [facility] W[facility] TREATMENT RN, MISA 462 SORE THROAT ACUTE 06/04/2013 [facility] W[facility] TREATMENT RN, MISA 719.46 joint pain in both knees 06/04/2013 [facility] W[facility] TREATMENT RN, MISA 788.1 DYSURIA 06/04/2013 MADL WOUND TREATMENT RN, DARIAN L 462 SORE THROAT ACUTE 06/04/2013 MADL WOUND TREATMENT RN, DARIAN L 719.46 joint pain in both knees 06/04/2013 MADL WOUND TREATMENT RN, DARIAN L 788.1 DYSURIA 06/04/2013 FLOYD WOUND TREATMENT RN, ANGEL R 462 SORE THROAT ACUTE 06/04/2013 FLOYD WOUND TREATMENT RN, ANGEL R 719.46 joint pain in both knees 06/04/2013 FLOYD WOUND TREATMENT RN, ANGEL R 788.1 DYSURIA 06/04/2013 MADL WOUND TREATMENT RN, DARIAN L 462 SORE THROAT ACUTE 06/04/2013 MADL WOUND TREATMENT RN, DARIAN L 719.46 joint pain in both knees 06/04/2013 MADL WOUND TREATMENT RN, DARIAN L 788.1 DYSURIA 06/04/2013 [facility] W[facility] TREATMENT RN, MISA 462 SORE THROAT ACUTE 06/04/2013 [facility] WOUND TREATMENT RN, MISA 719.46 joint pain in both knees 06/04/2013 [facility] W[facility] TREATMENT RN, MISA 788.1 DYSURIA 06/04/2013 MADL WOUND TREATMENT RN, DARIAN L 462 SORE THROAT ACUTE 06/04/2013 MADL WOUND TREATMENT RN, DARIAN L 719.46 joint pain in both knees 06/04/2013 MADL WOUND TREATMENT RN, DARIAN L 788.1 DYSURIA 06/04/2013 [facility] TREATMENT RN, MISA 462 SORE THROAT ACUTE 06/04/2013 [facility] WOUND TREATMENT RN, MISA 719.46 joint pain in both knees 06/04/2013 [facility] W[facility] TREATMENT RN, MISA 788.1 DYSURIA 06/10/2013 VALERIANO SEYMOUR, DOMINIC [...] PEDRAZA MD 789.00 abdominal pain 06/10/2013 [facility] TREATMENT RN, MISA 782.0 tingling (paresthesia) 06/10/2013 [facility] W[facility] TREATMENT RN, MISA 789.00 abdominal pain 06/10/2013 [facility] W[facility] TREATMENT RN, MISA 782.0 tingling (paresthesia) 06/10/2013 [facility] W[facility] TREATMENT RN, MISA 789.00 abdominal pain 06/10/2013 JEREMIE ALEX DDS 782.0 tingling (paresthesia) 06/10/2013 JEREMIE ALEX DDS 789.00 abdominal pain 06/10/2013 [facility] W[facility] TREATMENT RN, MISA 782.0 tingling (paresthesia) 06/10/2013 [facility] W[facility] TREATMENT RN, MISA 789.00 abdominal pain 06/10/2013 [facility] W[facility] TREATMENT RN, MIAS 782.0 tingling (paresthesia) 06/10/2013 [facility] W[facility] TREATMENT RN, MISA 789.00 abdominal pain 06/10/2013 MADL WOUND TREATMENT RN, DARIAN L 782.0 tingling (paresthesia) 06/10/2013 MADL WOUND TREATMENT RN, DARIAN L 789.00 abdominal pain 06/10/2013 LEONARDO DO, NORA K 782.0 tingling (paresthesia) 06/10/2013 LEONARDO DO, NORA K 789.00 abdominal pain 06/10/2013 LEONARDO DO, NORA K 782.0 tingling (paresthesia) 06/10/2013 LEONARDO DO, NORA K 789.00 abdominal pain 06/10/2013 LEONARDO DO, NORA K 782.0 tingling (paresthesia) 06/10/2013 LEONARDO DO, NORA K 789.00 abdominal pain 06/10/2013 [facility] TREATMENT RN, MISA 782.0 tingling (paresthesia) 06/10/2013 [facility] TREATMENT RN, MISA 789.00 abdominal pain 06/10/2013 MADL WOUND TREATMENT RN, DARIAN L 782.0 tingling (paresthesia) 06/10/2013 MADL WOUND TREATMENT RN, DARIAN L 789.00 abdominal pain 06/10/2013 RICK PHD, JESSICA Sabillon 782.0 tingling (paresthesia) 06/10/2013 RICK PHD, JESSICA Sabillon 789.00 abdominal pain 06/10/2013 MADL WOUND TREATMENT RN, DARIAN L 782.0 tingling (paresthesia) 06/10/2013 MADL WOUND TREATMENT RN, DARIAN L 789.00 abdominal pain 06/10/2013 [facility] TREATMENT RN, MISA 782.0 tingling (paresthesia) 06/10/2013 [facility] W[facility] TREATMENT RN, MISA 789.00 abdominal pain 06/10/2013 RICK PHD, JESSICA Sabillon 782.0 tingling (paresthesia) 06/10/2013 RICK PHD, JESSICA A 789.00 abdominal pain 06/10/2013 [facility] TREATMENT RN, MISA 782.0 tingling (paresthesia) 06/10/2013 [facility] W[facility] TREATMENT RN, MISA 789.00 abdominal pain 06/10/2013 MADL WOUND TREATMENT RN, DARIAN L 782.0 tingling (paresthesia) 06/10/2013 MADL WOUND TREATMENT RN, DARIAN L 789.00 abdominal pain 06/10/2013 FLOYD WOUND TREATMENT RN, ANGEL R 782.0 tingling (paresthesia) 06/10/2013 FLOYD WOUND TREATMENT RN, ANGEL R 789.00 abdominal pain 06/10/2013 MADL WOUND TREATMENT RN, DARIAN L 782.0 tingling (paresthesia) 06/10/2013 MADL WOUND TREATMENT RN, DARIAN L 789.00 abdominal pain 06/10/2013 [facility] TREATMENT RN, MISA 782.0 tingling (paresthesia) 06/10/2013 [facility] TREATMENT RN, MISA 789.00 abdominal pain 06/10/2013 MADL WOUND TREATMENT RN, DARIAN L 782.0 tingling (paresthesia) 06/10/2013 MADL WOUND TREATMENT RN, DARIAN L 789.00 abdominal pain 06/10/2013 [facility] TREATMENT RN, MISA 782.0 tingling (paresthesia) 06/10/2013 [facility] TREATMENT RN, MISA 789.00 abdominal pain 07/02/2013 LEONARDO DO, NORA K 786.09 RESPIRATORY ABNORMALITY OTHER 07/02/2013 LEONARDO DO, NORA K 786.09 RESPIRATORY ABNORMALITY OTHER 07/02/2013 LEONARDO DO, NORA K 786.09 RESPIRATORY ABNORMALITY OTHER 07/02/2013 BALTA PEDRAZA MD 786.09 RESPIRATORY ABNORMALITY OTHER 07/02/2013 [facility] TREATMENT RN, MISA 786.09 RESPIRATORY ABNORMALITY OTHER 07/02/2013 [facility] W[facility] TREATMENT RN, MISA 786.09 RESPIRATORY ABNORMALITY OTHER 07/02/2013 JEREMIE ALEX DDS 786.09 RESPIRATORY ABNORMALITY OTHER 07/02/2013 [facility] W[facility] TREATMENT RN, MISA 786.09 RESPIRATORY ABNORMALITY OTHER 07/02/2013 [facility] WOUND TREATMENT RN, MISA 786.09 RESPIRATORY ABNORMALITY OTHER 07/02/2013 MADL WOUND TREATMENT RN, DARIAN L 786.09 RESPIRATORY ABNORMALITY OTHER 07/02/2013 LEONARDO DO, NORA K 786.09 RESPIRATORY ABNORMALITY OTHER 07/02/2013 LEONARDO DO, NORA K 786.09 RESPIRATORY ABNORMALITY OTHER 07/02/2013 LEONARDO DO, NORA K 786.09 RESPIRATORY ABNORMALITY OTHER 07/02/2013 [facility] W[facility] TREATMENT RN, MISA 786.09 RESPIRATORY ABNORMALITY OTHER 07/02/2013 MADL WOUND TREATMENT RN, DARIAN L 786.09 RESPIRATORY ABNORMALITY OTHER 07/02/2013 RICK ALBERTO, JESSICA Sabillon 786.09 RESPIRATORY ABNORMALITY OTHER 07/02/2013 MADL WOUND TREATMENT RN, DARIAN L 786.09 RESPIRATORY ABNORMALITY OTHER 07/02/2013 [facility] W[facility] TREATMENT RN, MISA 786.09 RESPIRATORY ABNORMALITY OTHER 07/02/2013 RICK ALBERTO, JESSICA Sabillon 786.09 RESPIRATORY ABNORMALITY OTHER 07/02/2013 [facility] WOUND TREATMENT RN, MISA 786.09 RESPIRATORY ABNORMALITY OTHER 07/02/2013 MADL WOUND TREATMENT RN, DARIAN L 786.09 RESPIRATORY ABNORMALITY OTHER 07/02/2013 FLOYD WOUND TREATMENT RN, ANGEL R 786.09 RESPIRATORY ABNORMALITY OTHER 07/02/2013 MADL WOUND TREATMENT RN, DARIAN L 786.09 RESPIRATORY ABNORMALITY OTHER 07/02/2013 [facility] TREATMENT RN, MISA 786.09 RESPIRATORY ABNORMALITY OTHER 07/02/2013 MADL WOUND TREATMENT RN, DARIAN L 786.09 RESPIRATORY ABNORMALITY OTHER 07/02/2013 [facility] W[facility] TREATMENT RN, MISA 786.09 RESPIRATORY ABNORMALITY OTHER 08/05/2013 LEONARDO DO, NORA K 733.92 CHONDROMALACIA 08/05/2013 LEONARDO DO, NORA K 733.92 CHONDROMALACIA 08/05/2013 BALTA PEDRAZA MD 733.92 CHONDROMALACIA 08/05/2013 [facility] WOUND TREATMENT RN, MISA 733.92 CHONDROMALACIA 08/05/2013 [facility] WOUND TREATMENT RN, MISA 733.92 CHONDROMALACIA 08/05/2013 JEREMIE ALEX DDS 733.92 CHONDROMALACIA 08/05/2013 [facility] WOUND TREATMENT RN, MISA 733.92 CHONDROMALACIA 08/05/2013 [facility] WOUND TREATMENT RN, MISA 733.92 CHONDROMALACIA 08/05/2013 MADL WOUND TREATMENT RN, DARIAN L 733.92 CHONDROMALACIA 08/05/2013 LEONARDO DO, NORA K 733.92 CHONDROMALACIA 08/05/2013 LEONARDO DO, NORA K 733.92 CHONDROMALACIA 08/05/2013 LEONARDO DO, NORA K 733.92 CHONDROMALACIA 08/05/2013 [facility] WOUND TREATMENT RN, MISA 733.92 CHONDROMALACIA 08/05/2013 MADL WOUND TREATMENT RN, DARIAN L 733.92 CHONDROMALACIA 08/05/2013 RICK ALBERTO, JESSICA Sabillon 733.92 CHONDROMALACIA 08/05/2013 MADL WOUND TREATMENT RN, DARIAN L 733.92 CHONDROMALACIA 08/05/2013 [facility] WOUND TREATMENT RN, MISA 733.92 CHONDROMALACIA 08/05/2013 RICK ALBERTO, JESSICA Sabillon 733.92 CHONDROMALACIA 08/05/2013 [facility] WOUND TREATMENT RN, MISA 733.92 CHONDROMALACIA 08/05/2013 MADL WOUND TREATMENT RN, DARIAN L 733.92 CHONDROMALACIA 08/05/2013 FLOYD WOUND TREATMENT RN, ANGEL R 733.92 CHONDROMALACIA 08/05/2013 MADL WOUND TREATMENT RN, DARIAN L 733.92 CHONDROMALACIA 08/05/2013 [facility] WOUND TREATMENT RN, MISA 733.92 CHONDROMALACIA 08/05/2013 MADL WOUND TREATMENT RN, DARIAN L 733.92 CHONDROMALACIA 08/05/2013 [facility] W[facility] TREATMENT RN, MISA 733.92 CHONDROMALACIA 10/03/2013 NOBLE GOMEZ APRN Ot 620.2 OVARIAN CYST NEC/NOS 10/03/2013 NOBLE GOMEZ APRN Ot 789.00 ABDOMINAL PAIN, UNSPECIFIED SITE 11/01/2013 NOBLE GOMEZ APRN Ot 338.29 OTHER CHRONIC PAIN 11/01/2013 NOBLE GOMEZ WOUND TREATMENT RN Ot 620.2 OVARIAN CYST NEC/NOS 11/01/2013 NOBLE GOMEZ WOUND TREATMENT RN Ot 789.00 ABDOMINAL PAIN, UNSPECIFIED SITE 11/03/2013 DANIE COOPER, DARIAN L 620.2 OVARIAN CYST 11/03/2013 LEONARDO DO, NORA K 620.2 OVARIAN CYST 11/03/2013 LEONARDO DO, NORA K 620.2 OVARIAN CYST 11/03/2013 LEONARDO DO, NORA K 620.2 OVARIAN CYST 11/03/2013 [facility] WOUND TREATMENT RN, MISA 620.2 OVARIAN CYST 11/03/2013 MAD WOUND TREATMENT RN, DARIAN L 620.2 OVARIAN CYST 11/03/2013 RICK ALBERTO, JESSICA Sabillon 620.2 OVARIAN CYST 11/03/2013 MAD WOUND TREATMENT RN, DARIAN L 620.2 OVARIAN CYST 11/03/2013 [facility] WOUND TREATMENT RN, MISA 620.2 OVARIAN CYST 11/03/2013 RICK PHD, JESSICA Sabillon 620.2 OVARIAN CYST 11/03/2013 [facility] WOUND TREATMENT RN, MISA 620.2 OVARIAN CYST 11/03/2013 MADL WOUND TREATMENT RN, DARAIN L 620.2 OVARIAN CYST 11/03/2013 FLOYD COOPER ANGEL R 620.2 OVARIAN CYST 11/03/2013 MADL WOUND TREATMENT RN, DARIAN L 620.2 OVARIAN CYST 11/03/2013 [facility] WOUND TREATMENT RN, MISA 620.2 OVARIAN CYST 11/03/2013 MADL WOUND TREATMENT RN, DARIAN L 620.2 OVARIAN CYST 11/03/2013 [facility] WOUND TREATMENT RN, MISA 620.2 OVARIAN CYST 12/02/2013 LEONARDO DO, NORA K 787.02 NAUSEA ALONE 12/02/2013 LEONARDO DO, NORA K 787.02 NAUSEA ALONE 12/02/2013 [facility] WOUND TREATMENT RN, MISA 787.02 NAUSEA ALONE 12/02/2013 MADL WOUND TREATMENT RNXU BalNYA L 787.02 NAUSEA ALONE 12/02/2013 RICK ALBERTO, JESSICA Sabillon 787.02 NAUSEA ALONE 12/02/2013 MADL WOUND TREATMENT RN, DARIAN L 787.02 NAUSEA ALONE 12/02/2013 [facility] RN, MISA 787.02 NAUSEA ALONE 12/02/2013 RICK ALBERTO, JESSICA Sabillon 787.02 NAUSEA ALONE 12/02/2013 [facility] RN, MISA 787.02 NAUSEA ALONE 12/02/2013 [facility] WOUND TREATMENT RN, DARIAN L 787.02 NAUSEA ALONE 12/02/2013 FREDERIC BARRIENTOS APRNINA R 787.02 NAUSEA ALONE 12/02/2013 [facility] WOUND TREATMENT RN, DARIAN L 787.02 NAUSEA ALONE 12/02/2013 [facility] RN, MISA 787.02 NAUSEA ALONE 12/02/2013 [facility] WOUND TREATMENT RN, DARIAN L 787.02 NAUSEA ALONE 12/02/2013 [facility] RN, MISA 787.02 NAUSEA ALONE 12/30/2013 MISA DE DIOS APRN 300.01 AN PANIC DIS W/O AGORA 12/30/2013 RAMON HELTON APRNA L 300.01 AN PANIC DIS W/O AGORA 12/30/2013 RICK ALBERTO, JESSICA Sabillon 300.01 AN PANIC DIS W/O AGORA 12/30/2013 [facility] WOUND TREATMENT RN, DARIAN L 300.01 AN PANIC DIS W/O AGORA 12/30/2013 [facility] RN, MISA 300.01 AN PANIC DIS W/O AGORA 12/30/2013 RICK PHD, JESSICA Sabillon 300.01 AN PANIC DIS W/O AGORA 12/30/2013 [facility] RN, MISA 300.01 AN PANIC DIS W/O AGORA 12/30/2013 [facility] WOUND TREATMENT RN, DARIAN L 300.01 AN PANIC DIS W/O AGORA 12/30/2013 FLOYD COOPER, ANGEL R 300.01 AN PANIC DIS W/O AGORA 12/30/2013 [facility] WOUND TREATMENT RN, DARIAN L 300.01 AN PANIC DIS W/O AGORA 12/30/2013 [facility] COOPER MISA 300.01 AN PANIC DIS W/O AGORA 12/30/2013 DANIE WOUND TREATMENT RN, DARIAN L 300.01 AN PANIC DIS W/O [...] THE TEETH AND SUPPORTING STRUCTURES 12/31/2013 [facility] WOUND TREATMENT RN, DARIAN L 719.45 PAIN IN JOINT INVOLVING PELVIC REGION AND THIGH 12/31/2013 [facility] RN, MISA 525.9 UNSPECIFIED DISORDER OF THE TEETH AND SUPPORTING STRUCTURES 12/31/2013 [facility] RN, MISA 719.45 PAIN IN JOINT INVOLVING PELVIC REGION AND THIGH 12/31/2013 JESSICA CABRERA PHD 525.9 UNSPECIFIED DISORDER OF THE TEETH AND SUPPORTING STRUCTURES 12/31/2013 JESSICA CABRERA PHD 719.45 PAIN IN JOINT INVOLVING PELVIC REGION AND THIGH 12/31/2013 [facility] RN, MISA 525.9 UNSPECIFIED DISORDER OF THE TEETH AND SUPPORTING STRUCTURES 12/31/2013 [facility] RN, MISA 719.45 PAIN IN JOINT INVOLVING PELVIC REGION AND THIGH 12/31/2013 [facility] WOUND TREATMENT RN, DARIAN L 525.9 UNSPECIFIED DISORDER OF THE TEETH AND SUPPORTING STRUCTURES 12/31/2013 [facility] WOUND TREATMENT RN, DARIAN L 719.45 PAIN IN JOINT INVOLVING PELVIC REGION AND THIGH 12/31/2013 FLOYD RIVERAN, ANGEL R 525.9 UNSPECIFIED DISORDER OF THE TEETH AND SUPPORTING STRUCTURES 12/31/2013 FLOYD WOUND TREATMENT RN, ANGEL R 719.45 PAIN IN JOINT INVOLVING PELVIC REGION AND THIGH 12/31/2013 [facility] WOUND TREATMENT RN, DARIAN L 525.9 UNSPECIFIED DISORDER OF THE TEETH AND SUPPORTING STRUCTURES 12/31/2013 [facility] WOUND TREATMENT RN, DARIAN L 719.45 PAIN IN JOINT INVOLVING PELVIC REGION AND THIGH 12/31/2013 [facility] RN, MISA 525.9 UNSPECIFIED DISORDER OF THE TEETH AND SUPPORTING STRUCTURES 12/31/2013 [facility] RN, MISA 719.45 PAIN IN JOINT INVOLVING PELVIC REGION AND THIGH 12/31/2013 [facility] WOUND TREATMENT RN, DARIAN L 525.9 UNSPECIFIED DISORDER OF THE TEETH AND SUPPORTING STRUCTURES 12/31/2013 [facility] WOUND TREATMENT RN, DARIAN L 719.45 PAIN IN JOINT INVOLVING PELVIC REGION AND THIGH 12/31/2013 [facility] RN, MISA 525.9 UNSPECIFIED DISORDER OF THE TEETH AND SUPPORTING STRUCTURES 12/31/2013 [facility] RN, MISA 719.45 PAIN IN JOINT INVOLVING PELVIC REGION AND THIGH 01/05/2014 STELLA SULLIVAN DO Ot 346.90 MIGRAINE UNSPECIFIED W/O INTRACT MGRN W/ 01/05/2014 STELLA SULLIVAN DO Ot 522.5 PERIAPICAL ABSCESS 01/05/2014 STELLA SULLIVAN DO Ot 784.0 HEADACHE 01/10/2014 GOMEZNOBLE MARINO Belén COOPER Ot 784.0 HEADACHE 01/24/2014 [facility] WOUND TREATMENT RN, DARIAN L 380.4 IMPACTED CERUMEN 01/24/2014 [facility] WOUND TREATMENT RN, DARIAN L 780.4 DIZZINESS AND GIDDINESS 01/24/2014 [facility] RN, MISA 380.4 IMPACTED CERUMEN 01/24/2014 [facility] RN, MISA 780.4 DIZZINESS AND GIDDINESS 01/24/2014 RICK ALBERTO, JESSICA Sabillon 380.4 IMPACTED CERUMEN 01/24/2014 RICK ALBERTO, JESSICA Sabillon 780.4 DIZZINESS AND GIDDINESS 01/24/2014 [facility] RN, MISA 380.4 IMPACTED CERUMEN 01/24/2014 [facility] RN, MISA 780.4 DIZZINESS AND GIDDINESS 01/24/2014 [facility] WOUND TREATMENT RN, DARIAN L 380.4 IMPACTED CERUMEN 01/24/2014 [facility] WOUND TREATMENT RN, DARIAN L 780.4 DIZZINESS AND GIDDINESS 01/24/2014 F[facility] WOUND TREATMENT RN, ANGEL R 380.4 IMPACTED CERUMEN 01/24/2014 FLO[facility]D WOUND TREATMENT RN, ANGEL R 780.4 DIZZINESS AND GIDDINESS 01/24/2014 [facility] WOUND TREATMENT RN, DARIAN L 380.4 IMPACTED CERUMEN 01/24/2014 [facility] WOUND TREATMENT RN, DARIAN L 780.4 DIZZINESS AND GIDDINESS 01/24/2014 [facility] RN, MISA 380.4 IMPACTED CERUMEN 01/24/2014 [facility] RN, MISA 780.4 DIZZINESS AND GIDDINESS 01/24/2014 [facility] WOUND TREATMENT RN, DARIAN L 380.4 IMPACTED CERUMEN 01/24/2014 [facility] WOUND TREATMENT RN, DARIAN L 780.4 DIZZINESS AND GIDDINESS 01/24/2014 [facility], MISA 380.4 IMPACTED CERUMEN 01/24/2014 [facility] RN, MISA 780.4 DIZZINESS AND GIDDINESS 01/28/2014 RICK ALBERTO, JESSICA Sabillon 300.21 AN PANIC DIS W AGORA 01/28/2014 [facility] RN, MISA 300.21 AN PANIC DIS W AGORA 01/28/2014 MADL WOUND TREATMENT RN, DARIAN L 300.21 AN PANIC DIS W AGORA 01/28/2014 [facility] WOUND TREATMENT RN, ANGEL R 300.21 AN PANIC DIS W AGORA 01/28/2014 MADL WOUND TREATMENT RN, DARIAN L 300.21 AN PANIC DIS W AGORA 01/28/2014 [facility] RN, MISA 300.21 AN PANIC DIS W AGORA 01/28/2014 MADL WOUND TREATMENT RN, DARIAN L 300.21 AN PANIC DIS W AGORA 01/28/2014 [facility] RN, MISA 300.21 AN PANIC DIS W AGORA 03/16/2014 Ot 643.03 03/16/2014 RAOUL GARCIA Ot 521.00 UNSPEC DENTAL CARIES 03/16/2014 RAOUL GARCIA Ot 525.9 DENTAL DISORDER NOS 07/18/2016 Ot 643.03 MILD HYPEREMESIS-ANTEPAR 02/09/2018 PANDA WASHBURN P M545 Low back pain 05/09/2018 MADSandor, DARIAN L IT SUPPORT ENGINEER Ot R10.11 RIGHT UPPER QUADRANT PAIN 05/11/2018 BRIDGETTE MERRILL DO Ot F19.10 OTHER PSYCHOACTIVE SUBSTANCE ABUSE, UNCO 05/11/2018 BRIDGETTE MERRILL DO Ot F41.9 ANXIETY DISORDER, UNSPECIFIED 05/11/2018 BRIDGETTE MERRILL DO Ot G43.909 MIGRAINE, UNSP, NOT INTRACTABLE, WITHOUT 05/11/2018 BRIDGETTE MERRILL DO Ot J45.909 UNSPECIFIED ASTHMA, UNCOMPLICATED 05/11/2018 BRIDGETTE MERRILL DO Ot R51 HEADACHE 05/11/2018 BRIDGETTE MERRILL DO Ot Z86.69 PERSONAL HISTORY OF DIS OF THE NERVOUS S 05/11/2018 BRIDGETTE MERRILL DO Ot Z87.448 PERSONAL HISTORY OF OTHER DISEASES OF UR 05/11/2018 BRIDGETTE MERRILL DO Ot Z90.49 ACQUIRED ABSENCE OF OTHER SPECIFIED PART 05/11/2018 BRIDGETTE MERRILL DO Ot Z98.51 TUBAL LIGATION STATUS 05/11/2018 BRIDGETTE MERRILL DO Ot Z98.890 OTHER SPECIFIED POSTPROCEDURAL STATES Procedures Code Description [place] [address] ROUTINE VENIPUNCTURE 12/30/2011 05957 ESR/SED RATE 12/30/2011 48445 CBC 12/30/2011 69917 CMP 12/30/2011 0539532 GFR CALC (RESULT ONLY) 12/30/2011 45609 CRP 12/31/2011 29959 VITAMIN D 25-HYDROXY (D2,D3 , TOTAL) 12/31/2011 65572 VIT B 12 12/31/2011 36982 FOLATE 12/31/2011 24793 TSH 12/31/2011 PHYSI PHYSICAL THERAPY, VIA [facility] 07/17/2012 PHYSICAL PHYSICAL THERAPY, VIA [facility] 08/19/2012 73336 URINE DRUG SCREEN (IN-HOUSE ) 08/25/2012 24724 URINE AMPHETAMINE GC/MS 08/25/2012 90000 PSYCH DIAG EVAL W/MED SRVCS 09/01/2012 69706 PSYCHO TESTING 1 HR W COMP 12/02/2012 31746 URINE DRUG SCREEN (IN-HOUSE ) 12/15/2012 81460 GC/CHLAM PROBE (STATE) 12/21/2012 15659 URINE TEST (IN- HOUSE) 12/21/2012 40464 TRICHOMONAS (IN-HOUSE) 12/21/2012 17628 CULTURE UROGENITAL 12/22/2012 28556 PSYTX PT&/FAMILY 45 MINUTES 02/02/2013 72519 PSYTX PT&/FAMILY 45 MINUTES 02/18/2013 32392 PSYTX PT&/FAMILY 45 MINUTES 03/23/2013 44317 PSYTX PT&/FAMILY 45 MINUTES 05/12/2013 27156 ROUTINE VENIPUNCTURE 06/10/2013 92468 UA W/ CULTURE IF INDICATED 06/10/2013 65841 A1C (IN-HOUSE) 06/10/2013 50758 XRAY LUMBAR SPINE 2 OR 3 VIEWS 06/10/2013 06757 XRAY KNEE RIGHT 1 OR 2 VIEWS 06/10/2013 3127241 GFR CALC (RESULT ONLY) 06/10/2013 82032 CMP 06/10/2013 20810 CBC 06/10/2013 38331 VIT B 12 06/10/2013 02986 TSH 06/10/2013 27661 GC/CHLAM URINE (STATE) 06/15/2013 83715 PSYTX PT&/FAMILY 45 MINUTES 06/16/2013 09007 PULMONARY FUNCTION TEST (IN- HOUSE) 07/02/2013 68509 PULMONARY EDUCATION 07/02/2013 69882 JOINT INJECTION- LARGE JOINT (SPECIFY MEDCIN DESCRIPTION) 12/02/2013 00824 JOINT INJECTION- LARGE JOINT (SPECIFY MEDCIN DESCRIPTION) 12/02/2013 J1040 DEPO MEDROL 80 MG INJ 12/02/2013 46839 PSYTX PT&/FAMILY 45 MINUTES 01/05/2014 43611 ROUTINE VENIPUNCTURE 01/24/2014 86278 XRAY LUMBAR SPINE 2 OR 3 VIEWS 01/24/2014 65424 XRAY HIP RIGHT UNILATERAL MIN 2 VIEWS 01/24/2014 65518 CMP 01/24/2014 04505 CBC 01/24/2014 25414 PSYTX PT&/FAMILY 45 MINUTES 01/31/2014 77930 ROUTINE VENIPUNCTURE 03/01/2014 20700 UA W/ CULTURE IF INDICATED 03/01/2014 55739 TEST, URINE (IN- HOUSE) 03/01/2014 29173 CBC 03/02/2014 01017 CMP 03/02/2014 4343574 GFR CALC (RESULT ONLY) 03/02/2014 25378 STREP A (IN-HOUSE) 03/28/2014 Results Test Result [...] 0.450-4.500 Sedimentation Rate-Westergren - 04/25/16 12:06 Sedimentation Rate-Ponderosaergren 11 mm/hr 0-32 C-Reactive Protein, Quant - [...] >75 NR: NONE SEEN AMORPHOUS 1+ NRG Urine drug screening test - 05/09/18 02:20 Urine phencyclidine detection by screening method NEGATIVE NEGATIVE Urine benzodiazepines detection by screening method NEGATIVE NEGATIVE Urine cocaine detection NEGATIVE NEGATIVE Urine amphetamines detection by screening method NEGATIVE NEGATIVE Urine methamphetamine detection by screening method POSITIVE NEGATIVE Urine cannabinoids detection by screening method NEGATIVE NEGATIVE Urine opiates detection by screening method NEGATIVE NEGATIVE Urine barbiturates detection NEGATIVE NEGATIVE Screening urine tricyclic antidepressants detection NEGATIVE NEGATIVE Urine methadone detection by screening method NEGATIVE NEGATIVE Urine oxycodone detection NEGATIVE NEGATIVE Urine propoxyphene detection NEGATIVE NEGATIVE Encounters ACCT No. Visit Date/Time Discharge Status Pt. Type Provider Facility Loc./Unit Complaint [id number] 05/20/2014 08:21:00 05/20/2014 23:59:59 CLS Outpatient DARIAN HELTON APRN [id number] 05/17/2014 14:31:00 05/17/2014 23:59:59 CLS Outpatient MISA DE DIOS APRN [id number] 05/17/2014 14:31:00 05/17/2014 23:59:59 CLS Outpatient MISA DE DIOS APRN [id number] 03/28/2014 13:54:00 03/28/2014 23:59:59 CLS Outpatient DARIAN HELTON APRN [id number] 03/01/2014 17:50:00 03/01/2014 23:59:59 CLS Outpatient ANGEL BARRIENTOS APRN [id number] 02/24/2014 10:41:00 02/24/2014 23:59:59 CLS Outpatient DARIAN HELTON APRN [id number] 01/31/2014 14:46:00 01/31/2014 23:59:59 CLS Outpatient RICK ALBERTO, JESSICA Sabillon [id number] 01/28/2014 13:28:00 01/28/2014 23:59:59 CLS Outpatient MISA DE DIOS APRN [id number] 01/28/2014 13:28:00 01/28/2014 23:59:59 CLS Outpatient [facility] KENNETH MISA [id number] 01/24/2014 11:02:00 01/24/2014 23:59:59 CLS Outpatient MADL DARIAN COOPER [id number] 01/05/2014 18:04:00 01/05/2014 23:59:59 CLS Outpatient RICK ALBERTO, JESSICA Sabillon [id number] 12/31/2013 14:16:00 12/31/2013 23:59:59 CLS Outpatient DARIAN HELTON APRN [id number] 12/30/2013 10:39:00 12/30/2013 23:59:59 CLS Outpatient [facility] RIVERAMISA Bal [id number] 12/02/2013 12:08:00 12/02/2013 23:59:59 CLS Outpatient NORA LEONARDO DO [place] [id number] 11/25/2013 15:41:00 11/25/2013 23:59:59 CLS Outpatient NORA LEONARDO DO [place] [id number] 11/10/2013 00:00:00 11/10/2013 23:59:59 CLS Outpatient NORA LEONARDO DO [place] [id number] 11/03/2013 10:37:00 11/03/2013 23:59:59 CLS Outpatient DARIAN HELTON APRN Sandor [id number] 10/12/2013 13:49:00 10/12/2013 23:59:59 CLS Outpatient [facility] RIVERAMISA Bal [id number] 10/12/2013 13:49:00 10/12/2013 23:59:59 CLS Outpatient MISA DE DIOS APRN [id number] 09/16/2013 10:45:00 09/16/2013 23:59:59 CLS Outpatient JEREMIE ALEX DDS [id number] 09/09/2013 11:08:00 09/09/2013 23:59:59 CLS Outpatient MISA DE DIOS APRN [id number] 08/10/2013 17:02:00 08/10/2013 23:59:59 CLS Outpatient BALTA PEDRAZA MD [id number] 08/10/2013 17:02:00 08/10/2013 23:59:59 CLS Outpatient MISA DE DIOS APRN [id number] 08/09/2013 10:41:00 08/09/2013 23:59:59 CLS Outpatient NORA LEONARDO DO [id number] 08/05/2013 13:05:00 08/05/2013 23:59:59 CLS Outpatient NORA LEONARDO DO [id number] 07/02/2013 13:45:00 07/02/2013 23:59:59 CLS Outpatient NORA LEONARDO DO [id number] 06/15/2013 13:49:00 06/15/2013 23:59:59 CLS Outpatient JESSICA CABRERA PHD [id number] 06/15/2013 13:26:00 06/15/2013 23:59:59 CLS Outpatient BRIANDA LOUIS APRN [id number] 06/10/2013 13:05:00 06/10/2013 23:59:59 CLS Outpatient DOMINIC BAL MD [id number] 06/04/2013 13:42:00 06/04/2013 23:59:59 CLS Outpatient DOMINIC BAL MD [id number] 05/11/2013 11:02:00 05/11/2013 23:59:59 CLS Outpatient JESSICA CABRERA PHD [id number] 03/22/2013 10:55:00 03/22/2013 23:59:59 CLS Outpatient JESSICA CABRERA PHD [id number] 03/11/2013 11:08:00 03/11/2013 23:59:59 CLS Outpatient BRIANDA LOUIS APRN [id number] 02/17/2013 14:50:00 02/17/2013 23:59:59 CLS Outpatient JESSICA CABRERA PHD [id number] 02/01/2013 12:57:00 02/01/2013 23:59:59 CLS Outpatient JESSICA CABRERA PHD [id number] 12/21/2012 14:27:00 12/21/2012 23:59:59 CLS Outpatient JOAO ALBERT APRN [id number] 12/15/2012 10:04:00 12/15/2012 23:59:59 CLS Outpatient BRIANDA LOUIS APRN [id number] 04/23/2012 15:04:00 04/23/2012 23:59:59 CLS Outpatient BALBINA DELACRUZ APRN [id number] 12/30/2011 10:59:00 12/30/2011 23:59:59 CLS Outpatient [id number] 12/15/2012 10:04:00 Document Registration [id number] 12/01/2012 11:52:00 Document Registration [id number] 08/26/2012 09:00:00 Document Registration [id number] 08/25/2012 10:07:00 Document Registration [id number] 08/19/2012 15:31:00 Document Registration [id number] 07/17/2012 15:28:00 Document Registration [id number] 05/14/2016 09:16:00 Document Registration [id number] 05/11/2018 13:20:00 05/11/2018 23:59:59 CLS Outpatient MADL WOUND TREATMENT [facility] [id number] 04/26/2016 10:05:00 Document Registration [id number] 03/16/2014 21:07:02 ACT Document Registration [id number] 02/09/2018 17:54:00 Document Registration [id number] 05/09/2018 01:20:00 05/09/2018 03:32:00 DIS Outpatient BRIDGETTE MERRILL DO [facility] ER MIGRAINE,VOMITING [id number] 07/24/2016 14:09:00 07/24/2016 23:59:59 CLS Preadmit MADL, DARIAN L IT SUPPORT ENGINEER [facility] CARD R10.11 [id number] 07/18/2016 07:26:00 07/18/2016 23:59:59 CLS Outpatient MADL, DARIAN L IT SUPPORT ENGINEER [facility] RAD RUQ PAIN [id number] 03/16/2014 21:06:00 03/16/2014 22:11:00 DIS Emergency RAOUL GARCIA [facility] ER DENTAL PAIN [id number] 01/10/2014 20:15:00 01/10/2014 21:20:00 DIS Emergency NOBLE GOMEZ WOUND TREATMENT RN [facility] ER HEADACHE [id number] 01/05/2014 21:45:00 01/05/2014 23:13:00 DIS Emergency STELLA SULLIVAN DO [facility] ER HEADACHE [id number] 12/29/2013 23:31:00 12/30/2013 00:51:00 DIS Emergency TRAM SOLORZANO MD [facility] ER FELL-RT HIP PAIN-RT FOOT SWELLING [id number] 11/01/2013 19:35:00 11/01/2013 22:05:00 DIS Emergency NOBLE GOMEZ APRN [facility] ER ABD,LOW BACK PAIN [id number] 10/03/2013 17:06:00 10/03/2013 19:47:00 DIS Emergency NOBLE GOMEZ APRN [facility] ER ABD PAIN [id number] 03/17/2013 19:40:00 03/17/2013 20:46:00 DIS Emergency NOBLE GOMEZ APRN [facility] ER R WRIST PAIN; INJ AT HOME [id number] 02/17/2013 20:29:00 02/17/2013 22:39:00 DIS Emergency TRAM SOLORZANO MD [facility] ER HEADACHE [id number] 01/06/2013 21:14:00 01/06/2013 22:10:00 DIS Emergency NOBLE GOMEZ APRN [facility] ER EYE PAIN FROM INJ [id number] 12/21/2012 15:27:00 12/21/2012 23:12:00 DIS Emergency BRIDGETTE MERRILL DO [facility] ER NECK PAIN,HEAD PAIN FROM INJ [id number] 11/03/2012 16:13:00 11/03/2012 18:30:00 DIS Emergency RAOUL GARCIA [facility] ER HEAD PAIN FROM INJ [id number] 08/22/2012 22:31:00 08/23/2012 01:22:00 DIS Emergency TRAM SOLORZANO MD [facility] ER BACK PAIN [id number] 02/12/2012 08:28:00 Document Registration [id number] 01/17/2012 19:30:00 Document Registration [id number] 12/04/2011 11:58:00 Document Registration [id number] 11/24/2011 16:57:00 Document Registration [id number] 07/06/2011 21:59:00 Document Registration [id number] 06/29/2011 18:07:00 Document Registration [id number] 06/27/2011 22:38:00 Document Registration [id number] 07/27/2010 18:47:00 Document Registration [id number] 02/09/2018 17:54:00 02/09/2018 19:25:00 DIS Emergency PANDA WASHBURN N 014 LOWER BACK PAIN
[2018-05-18 01:42] LABS: BILIRUBIN,URINE NEGATIVE (NEGATIVE); CLARITY,URINE CLEAR; COLOR,URINE YELLOW; GLUCOSE, URINE (UA) NEGATIVE (NEGATIVE); KETONES,URINE NEGATIVE (NEGATIVE); LEUKOCYTE ESTERASE ,URINE 1+ (NEGATIVE); NITRITE,URINE NEGATIVE (NEGATIVE); PH,URINE 6 (5-9); PROTEIN,URINE NEGATIVE (NEGATIVE); UROBILINOGEN,URINE NORMAL (NORMAL)
--- NOTE | 2018-05-18 01:50 | ED Abdominal Pain ---
General Chief Complaint: Abdominal/GI Problems Stated Complaint: ABD PAIN Nursing Triage Note: left lower abdominal pain since am 05/17/18 Sepsis Screen: No Definite Risk Source of Information: Patient History of Present Illness Date Seen by Provider: May 18, 2018 Time Seen by Provider: 01:30 Initial Comments PT ARRIVES VIA POV FROM HOME C/O LLQ PAIN SINCE WAKING YESTERDAY AM ( 05/17/18) STATES PAIN IS CONSTANT NO RADIATION OF PAIN NOTHING WORSENS OR IMPROVES PAIN, BUT HAS NOT TAKEN ANYTHING FOR PAIN AT ANY TIME NO PROBLEMS URINATING C/O NAUSEA AND VOMITED X 2--NO NAUSEA NOW NO DIARRHEA OR CONSTIPATION, HAD A NORMAL BM 2 HOURS AGO NO FEVER NO HISTORY OF SIMILAR LMP 2 WEEKS AGO, NORMAL. HAS HAD BTL. Allergies and Home Medications Allergies Coded Allergies: No Known Drug Allergies (Unverified , 07/27/10) Home Medications No Active Prescriptions or Reported Meds Patient Home Medication List Home Medication List Reviewed: Yes Review of Systems Review of Systems Constitutional: no symptoms reported; No chills, No diaphoresis, No fever Cardiovascular: No Symptoms Reported Gastrointestinal: See HPI, Abdominal Pain; Denies Constipated, Denies Diarrhea ; Nausea; Denies Poor Appetite, Denies Poor Fluid Intake; Vomiting Genitourinary: No Symptoms Reported Musculoskeletal: no symptoms reported Skin: no symptoms reported Psychiatric/Neurological: No Symptoms Reported Endocrine: No Symptoms Reported Hematologic/Lymphatic: No Symptoms Reported Past Zhkcrwe-Uuanoa-Pvqruf Hx Patient Social History Alcohol Use: Rarely Uses Recreational Drug Use: Yes (THC, METH) Drug of Choice: cannibus, meth Smoking Status: Never a Smoker 2nd Hand Smoke Exposure: Yes Recent Foreign Travel: No Contact w/Someone Who Travel: No Recent Infectious Disease Expo: No Recent Hopitalizations: No Immunizations Up To Date Tetanus Booster (TDap): Unknown Date of Influenza Vaccine: Jan 05, 2012 Seasonal Allergies Seasonal Allergies: No Past Medical History Surgeries: Yes (C-SECTDION X 2) Appendectomy, Section, Gallbladder, Tubal Ligation Respiratory: Yes ("WEATHER-INDUCED ASTHMA" ) Asthma Cardiac: No Neurological: Yes Headaches /Migraines : No Reproductive Disorders: No Female Reproductive Disorders: Ovarian Cyst 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 oz. 105.380521fv; 33.45 BMI Method:Stated General Appearance: WD/WN, no apparent distress, obese, other (TALKING ON CELL PHONE AND MALE S.O. IS PLAYING ON CELL PHONE) HEENT: other (POOR DENTITION) Neck: normal inspection Respiratory: normal breath sounds, no respiratory distress, no accessory muscle use Cardiovascular: regular rate, rhythm, no murmur Gastrointestinal: normal bowel sounds, soft, no organomegaly, no pulsatile mass ; No distended, No guarding, No rebound; tenderness (LLQ AND MILD LEFT LOWER BACK TENDERNESS) Extremities: normal inspection, no pedal edema, no calf tenderness, normal capillary refill Back: no CVA tenderness, no vertebral tenderness; No decreased range of motion ; other (LEFT LOWER BACK) Neurologic/Psychiatric: administrative support assoc II-XII nml as tested, no motor/sensory deficits, alert, normal mood/affect, oriented x 3 Skin: normal color, warm/dry; No rash; tattoos/piercings Progress/Results/Core Measures Results/Orders Lab Results Laboratory Tests Test 05/18/18 01:19 05/18/18 02:15 Range/Units Urine Color YELLOW Urine Clarity CLEAR Urine pH 6 5-9 Urine Specific Bryant 1.010 L 1.016-1.022 Urine Protein NEGATIVE NEGATIVE Urine Glucose (UA) NEGATIVE NEGATIVE Urine Ketones NEGATIVE NEGATIVE Urine Nitrite NEGATIVE NEGATIVE Urine Bilirubin NEGATIVE NEGATIVE Urine Urobilinogen NORMAL NORMAL MG/DL Urine Leukocyte Esterase 1+ H NEGATIVE Urine RBC (Auto) 1+ H NEGATIVE Urine RBC NONE /HPF Urine WBC RARE /HPF Urine Squamous Epithelial Cells 10-25 H /HPF Urine Crystals NONE /LPF Urine Bacteria TRACE /HPF Urine Casts NONE /LPF Urine Mucus NEGATIVE /LPF Urine Culture Indicated NO Urine Test NEGATIVE NEGATIVE Urine Opiates Screen NEGATIVE NEGATIVE Urine Oxycodone Screen NEGATIVE NEGATIVE Urine Methadone Screen NEGATIVE NEGATIVE Urine Propoxyphene Screen NEGATIVE NEGATIVE Urine Barbiturates Screen NEGATIVE NEGATIVE Ur Tricyclic Antidepressants Screen NEGATIVE NEGATIVE Urine Phencyclidine Screen NEGATIVE NEGATIVE Urine Amphetamines Screen NEGATIVE NEGATIVE Urine Methamphetamines Screen NEGATIVE NEGATIVE Urine Benzodiazepines Screen NEGATIVE NEGATIVE Urine Cocaine Screen NEGATIVE NEGATIVE Urine Cannabinoids Screen NEGATIVE NEGATIVE White Blood Count 9.2 4.3-11.0 10^3/uL Red Blood Count 4.79 4.35-5.85 10^6/uL Hemoglobin 12.8 11.5-16.0 G/DL Hematocrit 39 35-52 % Mean Corpuscular Volume 80 80-99 FL Mean Corpuscular Hemoglobin 27 25-34 PG Mean Corpuscular Hemoglobin Concent 33 32-36 G/DL Red Cell Distribution Width 14.4 10.0-14.5 % Platelet Count 335 130-400 10^3/uL Mean Platelet Volume 9.7 7.4-10.4 FL Neutrophils (%) (Auto) 68 42-75 % Lymphocytes (%) (Auto) 22 12-44 % Monocytes (%) (Auto) 9 0-12 % Eosinophils (%) (Auto) 1 0-10 % Basophils (%) (Auto) 0 0-10 % Neutrophils # (Auto) 6.3 1.8-7.8 X 10^3 Lymphocytes # (Auto) 2.0 1.0-4.0 X 10^3 Monocytes # (Auto) 0.8 0.0-1.0 X 10^3 Eosinophils # (Auto) 0.1 0.0-0.3 10^3/uL Basophils # (Auto) 0.0 0.0-0.1 10^3/uL Sodium Level 140 135-145 MMOL/L Potassium Level 3.7 3.6-5.0 MMOL/L Chloride Level 106 98-107 MMOL/L Carbon Dioxide Level 21 21-32 MMOL/L Anion Gap 13 5-14 MMOL/L Blood Urea Nitrogen 11 7-18 MG/DL Creatinine 0.79 0.60-1.30 MG/DL Estimat Glomerular Filtration Rate > 60 BUN/Creatinine Ratio 14 Glucose Level 95 70-105 MG/DL Calcium Level 9.2 8.5-10.1 MG/DL Corrected Calcium 8.9 8.5-10.1 MG/DL Total Bilirubin 0.3 0.1-1.0 MG/DL Aspartate Amino Transf (AST/SGOT) 16 5-34 U/L Alanine Aminotransferase (ALT/SGPT) 14 0-55 U/L Alkaline Phosphatase 54 40-136 U/L Total Protein 7.7 6.4-8.2 GM/DL Albumin 4.4 3.2-4.5 GM/DL Amylase Level 55 25-125 U/L Lipase 51 8-78 U/L My Orders Orders - BRIDGETTE MERRILL DO Hcg,Qualitative Urine (05/18/18 01:31) Ua Culture If Indicated (05/18/18 01:31) Drug Screen Stat (Urine) (05/18/18 01:47) Saline Lock/Iv-Start (05/18/18 02:13) Ct Abd/Pelvis Wo(Kidney Stone) (05/18/18 02:13) Amylase (05/18/18 02:13) Cbc With Automated Diff (05/18/18 02:13) Comprehensive Metabolic Panel (05/18/18 02:13) Lipase (05/18/18 02:13) Abdomen/Kub 1view (05/18/18 02:13) Ketorolac Injection (Toradol Injection) (05/18/18 03:30) Medications Given in ED Current Medications Medications Dose Ordered Sig/Puneet Route Start Time Stop Time Status Last Admin Dose Admin Ketorolac Tromethamine 30 mg ONCE ONCE IVP 05/18/18 03:30 05/18/18 03:30 DC 05/18/18 03:22 30 MG Vital Signs/I&O 05/18/18 05/18/18 01:14 03:25 Temp 97.2 97.7 Pulse 93 61 Resp 18 16 B/P (MAP) 149/97 (114) 123/97 (106) Pulse Ox 97 99 O2 Delivery Room Air Room Air Blood Pressure Mean: 114 Progress Progress Note : Progress Note JUST PRIOR TO DISMISSAL, PT NOW STATES THAT SHE DID GO BOWLING AND BOWLED ALL NIGHT LAST NIGHT NO INJURY, BUT IS NOT A REGULAR ACTIVITY FOR PT Diagnostic Imaging Comments CT ABDOMEN/PELVIS--QUESTIONABLE CYSTITIS VS UNDERDISTENTION, OTHERWISE NO ACUTE PROCESS, PER [facility] VIA FAX @ [phone] Reviewed: Reviewed by Me Departure Impression Primary Impression: LLQ abdominal pain Additional Impression: POSSIBLE MUSCLE STRAIN Disposition: HOME, SELF-CARE Condition: Stable Departure-Patient Inst. Referrals: NORA LEONARDO DO (PCP) Primary Care Physician DARIAN HELTON (Family) Primary Care Physician Patient Instructions: Abdominal Muscle Strain (DC), Acute Abdomen (Belly Pain) , Adult (DC) Add. Discharge Instructions: LOTS OF CLEAR LIQUIDS--WATER, BROTH, JELLO, GATORADE TYLENOL AND MOTRIN NEEDED FOR PAIN MOIST HEAT TO AREA AT 20 MINUTE INTERVALS ACTIVITIES TOLERATED FOLLOW UP WITH YOUR DR IN 2-3 DAYS IF NO BETTER All discharge instructions reviewed with patient and/or family. Voiced understanding. Scripts No Active Prescriptions or Reported Meds BRIDGETTE MERRILL DO May 18, 2018 01:49
[2018-05-18 02:11] LABS: BACTERIA,URINE TRACE /HPF; WBC,URINE RARE /HPF
[2018-05-18 02:29] LABS: AMPHETAMINE SCREEN, URINE NEGATIVE (NEGATIVE); BARBITURATE SCREEN URINE NEGATIVE (NEGATIVE); BENZODIAZEPINES SCREEN URINE NEGATIVE (NEGATIVE); CANNABINOID SCREEN, URINE NEGATIVE (NEGATIVE); COCAINE SCREEN URINE NEGATIVE (NEGATIVE); METHADONE STAT NEGATIVE (NEGATIVE); METHAMPHETAMINE SCREEN URINE S NEGATIVE (NEGATIVE); OPIATE SCREEN URINE NEGATIVE (NEGATIVE); OXYCODONE STAT NEGATIVE (NEGATIVE); PROPOXYPHENE STAT NEGATIVE (NEGATIVE); TRICYCLIC ANTIDEPRESSANTS SCRE NEGATIVE (NEGATIVE)
[2018-05-18 02:30] LABS: BASOPHILS % (AUTO) 0 % (0-10); EOSINOPHILS # (AUTO) 0.1 10^3/uL (0.0-0.3); EOSINOPHILS % (AUTO) 1 % (0-10); HEMATOCRIT 39 % (35-52); HEMOGLOBIN 12.8 G/DL (11.5-16.0); LYMPHOCYTES % (AUTO) 22 % (12-44); MEAN CORPUSCULAR HEMOGLOBIN 27 PG (25-34); MEAN CORPUSCULAR HGB CONC 33 G/DL (32-36); MEAN CORPUSCULAR VOLUME 80 FL (80-99); MEAN PLATELET VOLUME 9.7 FL (7.4-10.4); MONOCYTES # (AUTO) 0.8 X 10^3 (0.0-1.0); MONOCYTES % (AUTO) 9 % (0-12); NEUTROPHILS # (AUTO) 6.3 X 10^3 (1.8-7.8); NEUTROPHILS % (AUTO) 68 % (42-75); PLATELET COUNT 335 10^3/uL (130-400); RED CELL DISTRIBUTION WIDTH 14.4 % (10.0-14.5); WHITE BLOOD COUNT 9.2 10^3/uL (4.3-11.0)
[2018-05-18 02:55] LABS: ALANINE AMINOTRANSFERASE 14 U/L (0-55); ALBUMIN 4.4 GM/DL (3.2-4.5); ALKALINE PHOSPHATASE 54 U/L (40-136); AMYLASE 55 U/L (25-125); BILIRUBIN,TOTAL 0.3 MG/DL (0.1-1.0); BUN/CREATININE RATIO 14; CALCIUM 9.2 MG/DL (8.5-10.1); CARBON DIOXIDE 21 MMOL/L (21-32); CHLORIDE 106 MMOL/L (98-107); CREATININE SERUM 0.79 MG/DL (0.60-1.30); GFR ESTIMATED > 60; GLUCOSE 95 MG/DL (70-105); LIPASE 51 U/L (8-78); POTASSIUM 3.7 MMOL/L (3.6-5.0); SODIUM 140 MMOL/L (135-145); TOTAL PROTEIN 7.7 GM/DL (6.4-8.2)
[2018-05-18 03:25] VITALS: BP 123/97
[2018-05-18] MEDS ORDERED: KETOROLAC 30 MG/ML VIAL IVP ONE (03:30)
--- NOTE | 2018-05-18 06:36 | Diagnostic Imaging Report ---
PROCEDURE: CT urinary tract, rule out kidney stone. TECHNIQUE: Multiple contiguous axial images were obtained through the abdomen and pelvis without the use of intravenous contrast. INDICATION: Abdominal pain. COMPARISON: 11/01/2013 FINDINGS: Included portions of the lung bases are clear. CT abdomen: Small bowel loops are nondistended. Normal appendix cannot be adequately identified, but appears to be surgically absent. No renal calculi are seen on either side. Ureters cannot be followed in their entirety, but no calculi are seen along the expected course of either ureter. Additionally, there is no hydronephrosis or other evidence of obstruction. No focal renal parenchymal lesions are identified on this noncontrast exam. The spleen, pancreas, adrenal glands, and liver have an unremarkable noncontrast CT appearance. There is no loculated fluid collection, free fluid, nor free air within the abdomen. No abnormal mesenteric or retroperitoneal adenopathy is identified. Bony structures show no acute abnormalities. CT pelvis: Small amount of free fluid is present within the pelvis. There is no loculated fluid collection or free air. Urinary bladder is unopacified. No calculi are seen within the urinary bladder. No abnormal lymph nodes are identified. Bony structures show no acute abnormalities. IMPRESSION: 1. Mild amount of free fluid within the pelvis; possibly physiologic. 2. Otherwise, unremarkable CT of the abdomen and pelvis. Dictated by: Dictated on workstation # [id number]
--- NOTE | 2018-05-18 07:20 | Diagnostic Imaging Report ---
INDICATION: Abdominal pain FINDINGS: A supine view of the abdomen demonstrates normal bowel gas pattern. The osseous structures appear normal. The top of the abdomen is not included. There are no abdominal calcifications. IMPRESSION: Negative KUB. The top of the abdomen was not included. Dictated by: Dictated on workstation # [id number]
== END 2018-05-18 03:25 | disposition home or self-care (01) ==
LOC: EDUNIT# 01:11 → ER 01:12
DX: R10.32 Left lower quadrant pain (principal); J45.909 Unspecified asthma, uncomplicated; G43.909 Migraine, unspecified, not intractable, without status migrainosus; F41.9 Anxiety disorder, unspecified; F15.10 Other stimulant abuse, uncomplicated; F12.10 Cannabis abuse, uncomplicated; Z90.49 Acquired absence of other specified parts of digestive tract; Z98.890 Other specified postprocedural states; Z98.51 Tubal ligation status; Z87.448 Personal history of other diseases of urinary system
CPT/HCPCS: 36415; 74018; 74176; 80053; 80306; 81000; 82150; 83690; 84703; 85025

== ENCOUNTER 2018-08-29 02:26 | Emergency (ER) | payer SELFPAY, OTHER | END 2018-08-29 04:17 | disposition home or self-care (01) | LOC: ER 02:26 ==

== ENCOUNTER 2018-10-08 19:19 | Emergency (ER) | payer SELFPAY ==
[~2018-10-08] VITALS: Ht 172.7 cm; Wt 103.4 kg
--- OUTSIDE RECORDS SUMMARY | 2018-10-08 19:42 | XMS REPORT | Clinical Summary ---
Author Author [facility] Organization [facility] Address Unknown Phone Unavailable Care Team Providers Care Corporate Travel Agent Name Role Phone PCP Unavailable Allergies No [...] 2002 via Pap Smear Influenza Vaccine (#1) 2019 Results Not on filefrom Last 3 Months
--- OUTSIDE RECORDS SUMMARY | 2018-10-08 19:43 | XMS REPORT ---
Author Author Migration, Doctor Organization [facility] Address Unknown Phone Unavailable Care Team Providers Care Diet Supervisor Name Role Phone Migration, Doctor Unavailable Unavailable PROBLEMS Type Condition ICD9-CM Code [id number] Code Onset Dates Condition Status SNOMED Code Problem Affective disorder F39 Active 66973221 Problem Panic disorder F41.0 Active 145276068 Problem Anxiety state, unspecified F41.1 Active 340708406 Problem Low back pain M54.5 Active 809691938 Problem Generalized anxiety disorder F41.1 Active 27747478 Problem Chronic migraine without aura without status migrainosus, not intractable G43.709 Active 625951671 Problem Vaginal bleeding N93.9 Active 020835663 Problem Pain in right knee M25.561 Active 92347091 Problem Major depressive disorder, recurrent, moderate F33.1 Active 240586976 Problem Chondromalacia patellae, right knee M22.41 Active 23717082 Problem Panic attacks F41.0 Active 446257660 Problem Major depressive disorder, recurrent episode, moderate F33.1 Active 12179828 ALLERGIES Substance Reaction Event Type Date Status Doxepin 50 Mg Capsule Unknown Non Drug Allergy Jul, Active Abilify 5 Mg Tablet sore throat Non Drug Allergy Jul, Active ENCOUNTERS Encounter Location Date Diagnosis [facility] [id number], [place] [address] Oct, [facility] [id number] [place] [address] Oct, [facility] [address] [id number], [place] [address] Sep, [facility] [id number] [place] [address] Sep, Low back strain, initial encounter S39.012A [facility] [id number], [place] [address] Sep, [facility] [address], [place] [address] August, Major depressive disorder, recurrent, moderate F33.1 and Generalized anxiety disorder F41.1 [facility] [address], [place] [address] August, Major depressive disorder, recurrent, moderate F33.1 [facility] [address], [place] [address] August, Major depressive disorder, recurrent, moderate F33.1 and Generalized anxiety disorder F41.1 [facility] [address] [place] [address] August, Vaginal bleeding N93.9 and Pelvic pain R10.2 [facility] [id number] [place] [address] August, [facility] [id number] [place] [address] August, Major depressive disorder, recurrent, moderate F33.1 and Generalized anxiety disorder F41.1 [facility] [address] [place] [address] August, Vaginal bleeding N93.9 and Pelvic pain R10.2 [facility] [id number] [place] [address] August, [facility] [id number] [place] [address] August, Pelvic pain R10.2 and Major depressive disorder, recurrent, moderate F33.1 [facility] [address] [place] [address] Jul, Vaginal bleeding N93.9 [facility] [address] [place] [address] May, Major depressive disorder, recurrent episode, moderate F33.1 ; Generalized anxiety disorder F41.1 and Panic attacks F41.0 [facility] [id number] [place] [address] 04 May, 2018 Sore throat J02.9 ; Acute bronchitis, unspecified organism J20.9 and Tonsillitis with exudate J03.90 [facility] [id number] [place] [address] 04 May, 2018 [facility] [id number] [place] [address] Jul, Right upper quadrant pain R10.11 and Nausea R11.0 [place] [facility] [address] [address] Jul, Right upper quadrant pain R10.11 and Left foot pain M79.672 [place] [id number] [place] [address] Jul, [place] [facility] [address] [address] Jun, Chondromalacia patellae, right knee M22.41 [facility] [id number] [place] [address] 17 May, 2016 [facility] [id number] [place] [address] 14 May, 2016 Pain in right knee M25.561 [facility] [id number] [place] [address] 08 May, 2016 Major depressive disorder, recurrent, moderate F33.1 [place] [id number] [place] [address] 06 May, 2016 Anxiety state, unspecified F41.1 ; Major depressive disorder, recurrent, moderate F33.1 and High risk medications (not anticoagulants) long-term use Z79.899 [place] [id number] [place] [address] Apr, [place] [address] [address] Apr, Low back pain M54.5 ; Pain in right knee M25.561 and Chronic migraine without aura without status migrainosus, not intractable G43.709 [facility] [id number] [place] [address] Apr, Affective disorder F39 and Panic disorder F41.0 [facility] [id number] [place] [address] 14 Jul, 2014 [facility] [id number] [place] [address] Jul, [facility] [id number] [place] [address] May, [facility] [id number] [place] [address] May, [facility] [id number] [place] [address] May, [facility] [id number] [place] [address] May, [facility] [id number] [place] [address] May, [facility] [id number] [place] [address] May, [facility] [id number] [place] [address] May, [facility] [address] [place] [address] May, [facility] [id number] [place] [address] Mar, [facility] [id number] [place] [address] Mar, [facility] [id number] [place] [address] Mar, [facility] [place] [facility] [address] [id number] [place] [address] Mar, [facility] [place] [facility] [address] [id number] [place] [address] Mar, [facility] [place] [facility] [address] [id number] [place] [address] Mar, [facility] [place] [facility] [address] [id number] [place] [address] Mar, [facility] [place] [facility] [address] [id number] [place] [address] Mar, [facility] [place] [facility] [address] [id number] [place] [address] Mar, [facility] [place] [facility] [address] [id number] [place] [address] Mar, [facility] [place] [facility] [address] [id number] [place] [address] Mar, [facility] [place] [facility] [address] [id number] [place] [address] Mar, [facility] [place] [facility] [address] [id number] [place] [address] Feb, [facility] [place] [facility] [address] [id number] [place] [address] Feb, [facility] [place] [facility] [address] [id number] [place] [address] Feb, [facility] [place] [facility] [address] [id number] [place] [address] Feb, [facility] [place] [facility] [address] [id number] [place] [address] Feb, [facility] [place] [facility] [address] [id number] [place] [address] Feb, [facility] [place] [facility] [address] [id number] [place] [address] Feb, [facility] [place] [facility] [address] [id number] [place] [address] Feb, [facility] [place] [facility] [address] [id number] [place] [address] Feb, [facility] [place] [facility] [address] [id number] [place] [address] Feb, [facility] [place] [facility] [address] [id number] [place] [address] Feb, [facility] [place] [facility] [address] [id number] [place] [address] Feb, [facility] [place] [facility] [address] [id number] [place] [address] Jan, [facility] [place] [facility] [address] [id number] [place] [address] Jan, [facility] [place] [facility] [address] [id number] [place] [address] Jan, [facility] [place] [facility] [address] [id number] [place] [address] Jan, [facility] [place] [facility] [address] [id number] [place] [address] Jan, [facility] [place] [facility] [address] [id number] [place] [address] Jan, [facility] [place] [facility] [address] [id number], [place] [address] Jan, [facility] [place] [facility] [address] [id number] [place] [address] Jan, [facility] [place] [facility] [address] [id number] [place] [address] Jan, [facility] [place] [facility] [address] [id number], [place] [address] Jan, [facility] [place] [facility] [address] [id number] [place] [address] Jan, [facility] [place] [facility] [address] [id number] [place] [address] Jan, [facility] [place] [facility] [address] [id number] [place] [address] Jan, [facility] [place] [facility] [address] [id number] [place] [address] Jan, [facility] [place] [facility] [address] [id number] [place] [address] Dec, [facility] [place] [facility] [address] [id number] [place] [address] Dec, [facility] [place] [facility] [address] [id number] [place] [address] Dec, [facility] [place] [facility] [address] [id number] [place] [address] Dec, [facility] [place] [facility] [address] [id number] [place] [address] Dec, [facility] [place] [facility] [address] [id number] [place] [address] Dec, [facility] [place] [facility] [address] [id number] [place] [address] Nov, [facility] [place] [facility] [address] [id number] [place] [address] Nov, [facility] [place] [facility] [address] [id number] [place] [address] Nov, [facility] [place] [facility] [address] [id number] [place] [address] Nov, [facility] [place] [facility] [address] [id number] [place] [address] Nov, [facility] [place] [facility] [address] [id number] [place] [address] Nov, [facility] [place] [facility] [address] [id number] [place] [address] Nov, [facility] [place] [facility] [address] [id number] [place] [address] Oct, [facility] [place] [facility] [address] [id number] [place] [address] Oct, [facility] [place] [facility] [address] [id number] [place] [address] Oct, [facility] [place] [facility] [address] [id number] [place] [address] Oct, [facility] [place] [facility] [address] [id number] [place] [address] Oct, [facility] [place] [facility] [address] [id number] [place] [address] Oct, [facility] [place] [facility] [address] [id number] [place] [address] Oct, [facility] [place] [facility] [address] [id number] [place] [address] Oct, [facility] [place] [facility] [address] [id number] [place] [address] Oct, [facility] [place] [facility] [address] [id number] [place] [address] Oct, [facility] [place] [facility] [address] [id number] [place] [address] Oct, [facility] [place] [facility] [address] [id number] [place] [address] Oct, [facility] [place] [facility] [address] [id number] [place] [address] Oct, [facility] [place] [facility] [address] [id number] [place] [address] Oct, [facility] [place] [facility] [address] [id number] [place] [address] Oct, 2013 [facility] [place] [facility] [address] [id number] [place] [address] Oct, 2013 [facility] [place] [facility] [address] [id number] [place] [address] Oct, 2013 [facility] [place] [facility] [address] [id number] [place] [address] Oct, 2013 [facility] [place] [facility] [address] [id number] [place] [address] Oct, [facility] [place] [facility] [address] [id number] [place] [address] Sep, [facility] [place] [facility] [address] [id number] [place] [address] Sep, [facility] [place] [facility] [address] [id number] [place] [address] Sep, [facility] [place] [facility] [address] [id number] [place] [address] Sep, [facility] [place] [facility] [address] [id number] [place] [address] Sep, [facility] [place] [facility] [address] [id number] [place] [address] Sep, [facility] [place] [facility] [address] [id number] [place] [address] Sep, [facility] [place] [facility] [address] [id number] [place] [address] Sep, [facility] [place] [facility] [address] [id number] [place] [address] Sep, [facility] [place] [facility] [address] [id number] [place] [address] Sep, [facility] [place] [facility] [address] [id number] [place] [address] Sep, [facility] [place] [facility] [address] [id number] [place] [address] Sep, [facility] [place] [facility] [address] [id number] [place] [address] August, [facility] [place] [facility] [address] [id number] [place] [address] August, [facility] [place] [facility] [address] [id number] [place] [address] August, [facility] [place] [facility] [address] [id number] [place] [address] August, [facility] [place] [facility] [address] [id number] [place] [address] August, [facility] [place] [facility] [address] [id number] [place] [address] August, [facility] [place] [facility] [address] [id number] [place] [address] August, [facility] [place] [facility] [address] [id number] [place] [address] August, [facility] [place] [facility] [address] [id number] [place] [address] Jul, [facility] [place] [facility] [address] [id number] [place] [address] Jul, [facility] [place] [facility] [address] [id number] [place] [address] Jul, [facility] [place] [facility] [address] [id number] [place] [address] Jul, [facility] [place] [facility] [address] [id number] [place] [address] Jun, [facility] [place] [facility] [address] [id number] [place] [address] Jun, [facility] [place] [facility] [address] [id number] [place] [address] 24 Jun, 2013 [facility] [place] [facility] [address] [id number] [place] [address] 24 Jun, 2013 [facility] [place] [facility] [address] [id number] [place] [address] 17 Jun, 2013 [facility] [place] [facility] [address] [id number] [place] [address] 17 Jun, 2013 [facility] [place] [facility] [address] [id number] [place] [address] 13 Jun, 2013 [facility] [place] [facility] [address] [id number] [place] [address] 13 Jun, 2013 [facility] [place] [facility] [address] [id number] [place] [address] 13 Jun, 2013 [facility] [place] [facility] [address] [id number] [place] [address] 13 Jun, 2013 [facility] [place] [facility] [address] [id number] [place] [address] 11 Jun, 2013 [facility] [place] [facility] [address] [id number] [place] [address] 11 Jun, 2013 [facility] [place] [facility] [address] [id number] [place] [address] Jun, [facility] [place] [facility] [address] [id number] [place] [address] Jun, [facility] [place] [facility] [address] [id number] [place] [address] 11 Jun, 2013 [facility] [place] [facility] [address] [id number] [place] [address] Jun, [facility] [place] [facility] [address] [id number] [place] [address] 07 Jun, 2013 [facility] [place] [facility] [address] [id number] [place] [address] Jun, [facility] [place] [facility] [address] [id number] [place] [address] Jun, 2013 [facility] [place] [facility] [address] [id number] [place] [address] Jun, [facility] [place] [facility] [address] [id number] [place] [address] Jun, [facility] [place] [facility] [address] [id number] [place] [address] Jun, [facility] [place] [facility] [address] [id number] [place] [address] Jun, [facility] [place] [facility] [address] [id number] [place] [address] Jun, [facility] [place] [facility] [address] [facility] [id number] [place] [address] May, [facility] [place] [facility] [address] [id number] [place] [address] May, [facility] [place] [facility] [address] [id number] [place] [address] May, [facility] [place] [facility] [address] [facility] [id number] [place] [address] May, [facility] [place] [facility] [address] [facility] [id number] [place] [address] May, [facility] [place] [facility] [address] [facility] [id number] [place] [address] May, [facility] [place] [facility] [address] [id number] [place] [address] May, [facility] [place] [facility] [address] [id number] [place] [address] May, [facility] [place] [facility] [address] [facility] [id number] [place] [address] May, [facility] [place] [facility] [address] [facility] [id number] [place] [address] Apr, [facility] [address] [id number] [place] [address] Apr, [facility] [place] [facility] [address] [id number] [place] [address] Apr, [facility] [place] [facility] [address] [id number] [place] [address] Apr, [facility] [place] [facility] [address] [id number] [place] [address] Mar, [facility] [place] [facility] [address] [id number] [place] [address] 30 Mar, 2013 [facility] [place] [facility] [address] [id number] [place] [address] 16 Mar, 2013 [facility] [place] [facility] [address] [id number] [place] [address] 16 Mar, 2013 [facility] [place] [facility] [address] [id number] [place] [address] 12 Mar, 2013 [facility] [place] [facility] [address] [id number] [place] [address] Mar, [facility] [place] [facility] [address] [id number] [place] [address] 05 Mar, 2013 [facility] [place] [facility] [address] [id number] [place] [address] 05 Mar, 2013 [facility] [place] [facility] [address] [id number] [place] [address] 14 Feb, 2013 [facility] [place] [facility] [address] [id number] [place] [address] 14 Feb, 2013 [facility] [place] [facility] [address] [id number] [place] [address] 14 Feb, 2013 [facility] [place] [facility] [address] [id number] [place] [address] 14 Feb, 2013 [facility] [place] [facility] [address] [id number] [place] [address] Feb, [facility] [place] [facility] [address] [id number] [place] [address] Feb, [facility] [place] [facility] [address] [id number] [place] [address] Feb, [facility] [place] [facility] [address] [id number] [place] [address] Feb, [facility] [place] [facility] [address] [id number] [place] [address] Feb, [facility] [place] [facility] [address] [id number] [place] [address] Feb, [facility] [place] [facility] [address] [id number] [place] [address] Feb, [facility] [place] [facility] [address] [id number] [place] [address] Jan, [facility] [place] [facility] [address] [id number] [place] [address] Jan, [facility] [place] [facility] [address] [id number] [place] [address] Jan, [facility] [place] [facility] [address] [id number] [place] [address] Jan, [facility] [place] [facility] [address] [id number] [place] [address] Jan, [facility] [place] [facility] [address] [id number] [place] [address] Jan, [facility] [place] [facility] [address] [id number] [place] [address] Jan, [facility] [place] [facility] [address] [id number] [place] [address] Jan, [facility] [place] [facility] [address] [id number] [place] [address] Jan, [facility] [place] [facility] [address] [id number] [place] [address] Jan, [facility] [place] [facility] [address] [id number] [place] [address] 30 Dec, 2012 [facility] [place] [facility] [address] [id number] [place] [address] 27 Dec, 2012 [facility] [place] [facility] [address] [id number] [place] [address] 24 Dec, 2012 [facility] [place] [facility] [address] [id number] [place] [address] 19 Dec, 2012 [facility] [place] [facility] [address] [id number] [place] [address] 17 Dec, 2012 [facility] [place] [facility] [address] [id number] [place] [address] 16 Dec, 2012 [facility] [place] [facility] [address] [id number] [place] [address] 10 Dec, 2012 [facility] [place] [facility] [address] [id number] [place] [address] Nov, [facility] [place] [facility] [address] [id number] [place] [address] Nov, [facility] [place] [facility] [address] [id number] [place] [address] Oct, [facility] [place] [facility] [address] [id number], [place] [address] Oct, [facility] [place] [facility] [address] [id number] [place] [address] Oct, [facility] [place] [facility] [address] [id number] [place] [address] Oct, [facility] [place] [facility] [address] [id number] [place] [address] Sep, [facility] [place] [facility] [address] [id number] [place] [address] 10 Sep, 2012 [facility] [address] [id number] [place] [address] Sep, [facility] [place] [facility] [address] [id number] [place] [address] Sep, [facility] [address] [id number] [place] [address] August, [facility] [place] [facility] [address] [id number] [place] [address] August, [facility] [address] [id number] [place] [address] August, [facility] [place] [facility] [address] [id number] [place] [address] August, [facility] [address] [id number] [place] [address] August, [facility] [address] [id number] [place] [address] August, [facility] [address] [id number] [place] [address] Jul, [facility] [address] [id number] [place] [address] Jul, [facility] [address] [id number] [place] [address] May, [facility] [place] [facility] [address] [id number] [place] [address] Apr, [facility] [place] [facility] [address] [id number] [place] [address] Jan, [facility] [place] [facility] [address] [id number] [place] [address] Jan, [facility] [address] [id number] [place] [address] Dec, [facility] [place] [facility] [address] [id number] [place] [address] 24 Dec, 2011 [facility] [place] [facility] [address] [id number] [place] [address] Dec, [facility] [place] [facility] [address] [id number] [place] [address] 28 Nov, 2011 [facility] [place] [facility] [address] [id number] [place] [address] Nov, [facility] [place] [facility] [address] [id number] [place] [address] Nov, [facility] [place] [facility] [address] [id number] [place] [address] Nov, [facility] [place] [facility] [address] [id number] [place] [address] Nov, [facility] [place] [facility] [address] [id number] [place] [address] Oct, [facility] [place] [facility] [address] [id number] [place] [address] Oct, [facility] [place] [facility] [address] [id number] [place] [address] Oct, [facility] [place] [facility] [address] [id number] [place] [address] Oct, [facility] [place] [facility] [address] [id number] [place] [address] Oct, [facility] [place] [facility] [address] [id number] [place] [address] Sep, [facility] [place] [facility] [address] [id number] [place] [address] Sep, [facility] [place] [facility] [address] [id number] [place] [address] August, [facility] [place] [facility] [address] [id number], [place] [address] August, [facility] [address] [id number] [address] August, [facility] [id number] [place] [address] August, [facility] [id number], [place] [address] August, [facility] [id number], [place] [address] Jul, [facility] [id number], [place] [address] Jul, [facility] [id number], [place] [address] Jul, [facility] [id number], [place] [address] Jun, [facility] [id number], [place] [address] Jun, [facility] [id number], [place] [address] Jun, [facility] [id number], [place] [address] Jun, [facility] [address] [id number], [place] [address] Jun, [facility] [id number], [place] [address] Jun, [facility] [address] [id number] [address] Jun, IMMUNIZATIONS No Known Immunizations SOCIAL HISTORY Never Assessed REASON FOR VISIT EMR-[facility] PLAN OF CARE VITAL SIGNS MEDICATIONS Medication Instructions Dosage Frequency Start Date End Date Duration Status propranolol 10 mg 0.5-1 Tablets, Dose Pack by Oral route 1 time per day for 7 days PRN then D/C, for anxiety Feb, Active Zoloft 100 mg 1.5 tablet by Oral route 1 time per day May, Active Ferrous Sulfate 325 mg (65 mg iron) 1 tablet by Oral route 1 time per day Mar, Active PredniSONE 10 mg 1 Tablet 2 times per day for 5 days Take at 8 am and noon. Do not take after 3 pm Feb, Active Augmentin 875-125 mg 1 tablet by Oral route 2 times per day for 7 day(s) May, Active cyclobenzaprine 5 mg 1 tablet 2 times per day PRN May, Active Topamax 25 mg 1 tablet by Oral route 2 times per day August, Active ProAir HFA 90 mcg/actuation inhale 2 puffs by Inhalation route every 6 hours as needed PRN shortness of breath/cough May, Active Amoxicillin 500 mg 1 capsule by Oral route 3 times per day for 10 days VOUCHER August, Active Diazepam 5 mg 1 tablet by Oral route 2 times per day May, Active Hydrocodone-Acetaminophen 5-325 mg 1 Tablet by Oral route every 8 hours PRN MUST LAST 30 DAYS May, Active RESULTS No Results PROCEDURES No Known procedures INSTRUCTIONS MEDICATIONS ADMINISTERED No Known Medications MEDICAL (GENERAL) HISTORY Type Description Date Medical History asthma Medical History headache Medical History anemia Medical History sciatica Medical History Controlled Violation [facility] 2014 Medical History "post seizure" Surgical History appendectomy 11/2013 Surgical History tubal ligation 06/2012 Surgical History section x2 Surgical History dental surgery for jock jaw 2006
--- OUTSIDE RECORDS SUMMARY | 2018-10-08 19:44 | XMS REPORT ---
Author Author Migration, Doctor Organization [facility] Address Unknown Phone Unavailable Care Team Providers Care Healthcare Marketer Name Role Phone Migration, Doctor Unavailable Unavailable PROBLEMS Type Condition ICD9-CM Code ITS62-KW Code Onset Dates Condition Status SNOMED Code Problem Affective disorder F39 Active 20584077 Problem Panic disorder F41.0 Active 331603707 Problem Anxiety state, unspecified F41.1 Active 295040139 Problem Low back pain M54.5 Active 884119356 Problem Generalized anxiety disorder F41.1 Active 09132876 Problem Chronic migraine without aura without status migrainosus, not intractable G43.709 Active 296809170 Problem Vaginal bleeding N93.9 Active 784606524 Problem Pain in right knee M25.561 Active 41511612 Problem Major depressive disorder, recurrent, moderate F33.1 Active 603779362 Problem Chondromalacia patellae, right knee M22.41 Active 99539886 Problem Panic attacks F41.0 Active 899580908 Problem Major depressive disorder, recurrent episode, moderate F33.1 Active 05431306 ALLERGIES No Information ENCOUNTERS Encounter Location Date Diagnosis [facility] [id number] [place] [address] August, [facility] [address] [place] [address] Jul, Vaginal bleeding N93.9 [facility] [id number] [place] [address] May, Major depressive disorder, recurrent episode, moderate F33.1 ; Generalized anxiety disorder F41.1 and Panic attacks F41.0 [facility] [id number] [place] [address] 04 May, 2018 [facility] [id number] [place] [address] 04 May, 2018 Sore throat J02.9 ; Acute bronchitis, unspecified organism J20.9 and Tonsillitis with exudate J03.90 [place] [id number] [place] [address] Jul, Right upper quadrant pain R10.11 and Nausea R11.0 [facility] [id number] [place] [address] Jul, Right upper quadrant pain R10.11 and Left foot pain M79.672 [place] [id number] [place] [address] Jul, [facility] [id number] [place] [address] Jun, Chondromalacia patellae, right knee M22.41 [place] [id number] [place] [address] 17 May, 2016 [place] [address] [address] 14 May, 2016 Pain in right knee M25.561 [place] [id number] [place] [address] 08 May, 2016 Major depressive disorder, recurrent, moderate F33.1 [place] [id number] [place] [address] 06 May, 2016 Anxiety state, unspecified F41.1 ; Major depressive disorder, recurrent, moderate F33.1 and High risk medications (not anticoagulants) long-term use Z79.899 [place] [id number] [place] [address] Apr, [place] [address] [address] Apr, Low back pain M54.5 ; Pain in right knee M25.561 and Chronic migraine without aura without status migrainosus, not intractable G43.709 [id number] [place] [address] Apr, Affective disorder F39 and Panic disorder F41.0 [facility] [id number] [place] [address] 14 Jul, 2014 [facility] [address] [address] 13 Jul, 2014 [facility] [id number] [place] [address] 24 May, 2014 [facility] [id number] [place] [address], [place] [address] 24 May, 2014 [facility] [id number] [place] [address], [place] [address] 18 May, 2014 [facility] [id number] [place] [address], [place] [address] 18 May, 2014 [facility] [id number] [place] [address], [place] [address] 13 May, 2014 [facility] [address] [address] 13 May, 2014 [facility] [id number] [place] [address], [place] [address] 10 May, 2014 [facility] [address] [address] 10 May, 2014 [facility] [address] [address] 30 Mar, 2014 [facility] [address] [address] Mar, [facility] [address] [place] [address] Mar, [facility] [address] [address] Mar, [facility] [address], [place] [address] Mar, [facility] [place] [facility] [address] [id number] [place] [address] Mar, [facility] [place] [facility] [address] [id number] [place] [address] Mar, [facility] [place] [facility] [address] [id number] [place] [address] Mar, [facility] [place] [facility] [address] [id number] [place] [address] Mar, [facility] [place] [facility] [address] [id number] [place] [address] Mar, [facility] [place] [facility] [address] [id number] [place] [address] Mar, [facility] [place] [facility] [address] [id number] [place] [address] Mar, [facility] [place] [facility] [address] [id number] [place] [address] Feb, [facility] [place] [facility] [address] [id number] [place] [address] Feb, [facility] [place] [facility] [address] [id number], [place] [address] Feb, [facility] [place] [facility] [address] [id number], [place] [address] Feb, [facility] [place] [facility] [address] [id number], [place] [address] Feb, [facility] [place] [facility] [address] [id number] [place] [address] Feb, [facility] [place] [facility] [address] [id number], [place] [address] Feb, [facility] [place] [facility] [address] [id number], [place] [address] Feb, [facility] [place] [facility] [address] [id number], [place] [address] Feb, [facility] [place] [facility] [address] [id number] [place] [address] Feb, [facility] [place] [facility] [address] [id number] [place] [address] Feb, [facility] [place] [facility] [address] [id number] [place] [address] Feb, [facility] [place] [facility] [address] [id number] [place] [address] Jan, [facility] [place] [facility] [address] [id number] [place] [address] Jan, [facility] [place] [facility] [address] [id number] [place] [address] Jan, [facility] [place] [facility] [address] [id number], [place] [address] Jan, [facility] [place] [facility] [address] [id number] [place] [address] Jan, [facility] [place] [facility] [address] [id number] [place] [address] Jan, [facility] [place] [facility] [address] [facility] [id number], [place] [address] Jan, [facility] [place] [facility] [address] [id number], [place] [address] Jan, [facility] [place] [facility] [address] [id number], [place] [address] Jan, [facility] [place] [facility] [address] [id number] [place] [address] Jan, [facility] [place] [facility] [address] [facility] [id number], [place] [address] Jan, [facility] [place] [facility] [address] [facility] [id number], [place] [address] Jan, [facility] [place] [facility] [address] [id number] [place] [address] Jan, [facility] [place] [facility] [address] [id number] [place] [address] Jan, [facility] [place] [facility] [address] [id number] [place] [address] Dec, [facility] [place] [facility] [address] [id number] [place] [address] Dec, [facility] [place] [facility] [address] [id number] [place] [address] Dec, [facility] [place] [facility] [address] [id number] [place] [address] Dec, [facility] [place] [facility] [address] [id number] [place] [address] Dec, [facility] [place] [facility] [address] [id number] [place] [address] Dec, [facility] [place] [facility] [address] [id number] [place] [address] Nov, [facility] [place] [facility] [address] [id number] [place] [address] Nov, [facility] [place] [facility] [address] [id number] [place] [address] Nov, [facility] [place] [facility] [address] [id number] [place] [address] Nov, [facility] [place] [facility] [address] [id number] [place] [address] Nov, [facility] [place] [facility] [address] [id number] [place] [address] Nov, [facility] [place] [facility] [address] [id number] [place] [address] Nov, [facility] [place] [facility] [address] [id number] [place] [address] Oct, [facility] [place] [facility] [address] [id number] [place] [address] Oct, [facility] [place] [facility] [address] [id number] [place] [address] Oct, [facility] [place] [facility] [address] [id number] [place] [address] Oct, [facility] [place] [facility] [address] [id number] [place] [address] Oct, [facility] [place] [facility] [address] [id number] [place] [address] Oct, [facility] [place] [facility] [address] [id number] [place] [address] Oct, [facility] [place] [facility] [address] [id number] [place] [address] Oct, [facility] [place] [facility] [address] [id number] [place] [address] Oct, [facility] [place] [facility] [address] [id number] [place] [address] Oct, [facility] [place] [facility] [address] [id number] [place] [address] Oct, [facility] [place] [facility] [address] [id number] [place] [address] Oct, [facility] [place] [facility] [address] [id number] [place] [address] Oct, [facility] [place] [facility] [address] [id number] [place] [address] Oct, [facility] [place] [facility] [address] [id number] [place] [address] Oct, [facility] [place] [facility] [address] [id number] [place] [address] Oct, 2013 [facility] [place] [facility] [address] [id number] [place] [address] Oct, [facility] [place] [facility] [address] [id number] [place] [address] Oct, [facility] [place] [facility] [address] [id number] [place] [address] Oct, [facility] [place] [facility] [address] [id number] [place] [address] Sep, [facility] [place] [facility] [address] [id number] [place] [address] Sep, [facility] [place] [facility] [address] [id number] [place] [address] Sep, [facility] [place] [facility] [address] [id number] [place] [address] Sep, [facility] [place] [facility] [address] [id number] [place] [address] Sep, [facility] [place] [facility] [address] [id number] [place] [address] Sep, [facility] [place] [facility] [address] [id number] [place] [address] Sep, [facility] [place] [facility] [address] [id number] [place] [address] Sep, [facility] [place] [facility] [address] [id number] [place] [address] Sep, [facility] [place] [facility] [address] [id number] [place] [address] Sep, [facility] [place] [facility] [address] [id number] [place] [address] Sep, [facility] [place] [facility] [address] [id number] [place] [address] Sep, [facility] [place] [facility] [address] [id number] [place] [address] August, [facility] [place] [facility] [address] [id number] [place] [address] August, [facility] [place] [facility] [address] [id number] [place] [address] August, [facility] [place] [facility] [address] [id number] [place] [address] August, [facility] [place] [facility] [address] [id number] [place] [address] August, [facility] [place] [facility] [address] [id number] [place] [address] August, [facility] [place] [facility] [address] [id number] [place] [address] August, [facility] [place] [facility] [address] [id number] [place] [address] August, [facility] [place] [facility] [address] [id number] [place] [address] Jul, [facility] [place] [facility] [address] [id number] [place] [address] Jul, [facility] [place] [facility] [address] [id number] [place] [address] Jul, [facility] [place] [facility] [address] [id number] [place] [address] Jul, [facility] [place] [facility] [address] [id number] [place] [address] Jun, [facility] [place] [facility] [address] [id number] [place] [address] Jun, [facility] [place] [facility] [address] [id number] [place] [address] Jun, [facility] [place] [facility] [address] [id number] [place] [address] Jun, [facility] [place] [facility] [address] [id number] [place] [address] 17 Jun, 2013 [facility] [place] [facility] [address] [id number] [place] [address] 17 Jun, 2013 [facility] [place] [facility] [address] [id number] [place] [address] 13 Jun, 2013 [facility] [place] [facility] [address] [id number] [place] [address] 13 Jun, 2013 [facility] [place] [facility] [address] [id number] [place] [address] 13 Jun, 2013 [facility] [place] [facility] [address] [id number] [place] [address] 13 Jun, 2013 [facility] [place] [facility] [address] [id number] [place] [address] 11 Jun, 2013 [facility] [place] [facility] [address] [id number] [place] [address] 11 Jun, 2013 [facility] [place] [facility] [address] [id number] [place] [address] Jun, [facility] [place] [facility] [address] [id number] [place] [address] Jun, [facility] [place] [facility] [address] [id number] [place] [address] Jun, [facility] [place] [facility] [address] [id number] [place] [address] Jun, [facility] [place] [facility] [address] [id number] [place] [address] Jun, [facility] [place] [facility] [address] [id number] [place] [address] Jun, [facility] [place] [facility] [address] [id number] [place] [address] Jun, [facility] [place] [facility] [address] [id number] [place] [address] Jun, [facility] [place] [facility] [address] [id number] [place] [address] Jun, [facility] [place] [facility] [address] [id number] [place] [address] Jun, [facility] [place] [facility] [address] [id number] [place] [address] Jun, [facility] [place] [facility] [address] [id number] [place] [address] Jun, [facility] [place] [facility] [address] [id number] [place] [address] May, [facility] [place] [facility] [address] [id number] [place] [address] May, [facility] [place] [facility] [address] [id number] [place] [address] May, [facility] [place] [facility] [address] [id number] [place] [address] May, [facility] [place] [facility] [address] [id number] [place] [address] May, [facility] [place] [facility] [address] [id number] [place] [address] May, [facility] [place] [facility] [address] [id number] [place] [address] May, [facility] [place] [facility] [address] [id number] [place] [address] May, [facility] [place] [facility] [address] [id number] [place] [address] May, [facility] [place] [facility] [address] [id number] [place] [address] Apr, [facility] [place] [facility] [address] [id number] [place] [address] Apr, [facility] [place] [facility] [address] [id number] [place] [address] Apr, [facility] [address] [id number] [place] [address] Apr, [facility] [place] [facility] [address] [id number] [place] [address] 30 Mar, 2013 [facility] [place] [facility] [address] [id number] [place] [address] 30 Mar, 2013 [facility] [place] [facility] [address] [id number] [place] [address] 16 Mar, 2013 [facility] [place] [facility] [address] [id number] [place] [address] 16 Mar, 2013 [facility] [place] [facility] [address] [id number] [place] [address] Mar, [facility] [place] [facility] [address] [id number] [place] [address] Mar, [facility] [place] [facility] [address] [id number] [place] [address] 05 Mar, 2013 [facility] [place] [facility] [address] [id number] [place] [address] 05 Mar, 2013 [facility] [place] [facility] [address] [id number] [place] [address] 14 Feb, 2013 [facility] [place] [facility] [address] [id number] [place] [address] 14 Feb, 2013 [facility] [place] [facility] [address] [id number] [place] [address] 14 Feb, 2013 [facility] [place] [facility] [address] [id number] [place] [address] 14 Feb, 2013 [facility] [place] [facility] [address] [id number] [place] [address] 13 Feb, 2013 [facility] [place] [facility] [address] [id number] [place] [address] 13 Feb, 2013 [facility] [place] [facility] [address] [id number] [place] [address] Feb, 2012 [facility] [place] [facility] [address] [id number] [place] [address] Feb, 2012 [facility] [place] [facility] [address] [id number] [place] [address] Feb, 2012 [facility] [place] [facility] [address] [id number] [place] [address] Feb, 2012 [facility] [place] [facility] [address] [id number] [place] [address] Feb, [facility] [place] [facility] [address] [id number] [place] [address] Jan, [facility] [place] [facility] [address] [id number] [place] [address] Jan, [facility] [place] [facility] [address] [id number] [place] [address] Jan, [facility] [place] [facility] [address] [id number] [place] [address] Jan, [facility] [place] [facility] [address] [id number] [place] [address] Jan, [facility] [place] [facility] [address] [id number] [place] [address] Jan, [facility] [place] [facility] [address] [id number] [place] [address] Jan, [facility] [place] [facility] [address] [id number] [place] [address] Jan, [facility] [place] [facility] [address] [id number] [place] [address] Jan, [facility] [place] [facility] [address] [id number] [place] [address] Jan, [facility] [place] [facility] [address] [id number] [place] [address] Dec, [facility] [place] [facility] [address] [id number] [place] [address] 27 Dec, 2012 [facility] [place] [facility] [address] [id number] [place] [address] 24 Dec, 2012 [facility] [place] [facility] [address] [id number] [place] [address] 19 Dec, 2012 [facility] [place] [facility] [address] [id number] [place] [address] 17 Dec, 2012 [facility] [place] [facility] [address] [id number] [place] [address] 16 Dec, 2012 [facility] [place] [facility] [address] [id number] [place] [address] 10 Dec, 2012 [facility] [place] [facility] [address] [id number] [place] [address] 27 Nov, 2012 [facility] [place] [facility] [address] [id number] [place] [address] 15 Nov, 2012 [facility] [place] [facility] [address] [id number] [place] [address] Oct, [facility] [place] [facility] [address] [id number] [place] [address] Oct, [facility] [place] [facility] [address] [id number] [place] [address] Oct, [facility] [place] [facility] [address] [id number] [place] [address] Oct, [facility] [place] [facility] [address] [id number] [place] [address] Sep, [facility] [place] [facility] [address] [id number] [place] [address] Sep, [facility] [place] [facility] [address] [id number] [place] [address] Sep, [facility] [place] [facility] [address] [id number] [place] [address] Sep, [facility] [address] [id number] [place] [address] August, [facility] [address] [id number] [place] [address] August, [facility] [address] [id number] [place] [address] August, [facility] [address] [id number] [place] [address] August, [facility] [address] [id number] [place] [address] August, [facility] [address] [id number] [place] [address] August, [facility] [address] [id number] [place] [address] Jul, [facility] [address] [id number] [place] [address] Jul, [facility] [address] [id number] [place] [address] May, [facility] [address] [id number] [place] [address] Apr, [facility] [address] [id number] [place] [address] Jan, [facility] [address] [id number] [place] [address] Jan, [facility] [place] [facility] [address] [id number] [place] [address] 29 Dec, 2011 [facility] [place] [facility] [address] [id number] [place] [address] 24 Dec, 2011 [facility] [address] [id number] [place] [address] Dec, [facility] [place] [facility] [address] [id number] [place] [address] Nov, [facility] [place] [facility] [address] [id number] [place] [address] Nov, [facility] [place] [facility] [address] [id number] [place] [address] Nov, [facility] [place] [facility] [address] [id number] [place] [address] Nov, [facility] [place] [facility] [address] [id number] [place] [address] Nov, [facility] [place] [facility] [address] [id number] [place] [address] Oct, [facility] [place] [facility] [address] [id number] [place] [address] Oct, [facility] [place] [facility] [address] [id number] [place] [address] Oct, [facility] [place] [facility] [address] [id number] [place] [address] Oct, [facility] [place] [facility] [address] [id number] [place] [address] Oct, [facility] [place] [facility] [address] [id number] [place] [address] Sep, [facility] [place] [facility] [address] [id number] [place] [address] Sep, [facility] [place] [facility] [address] [id number] [place] [address] August, [facility] [place] [facility] [address] [id number] [place] [address] August, [facility] [place] [facility] [address] [id number] [place] [address] August, [facility] [place] [facility] [address] [id number] [place] [address], [address] [facility] [address] [id number] [address] 15 Aug, 2011 [facility] [address] [address] Jul, [facility] [address] [address] Jul, [facility] [id number], [place] [address] Jul, [facility] [address] [address] [address], [address] [facility] [address], [place] [address] [address], [address] [facility] [address], [place] [address] [address], [address] [facility] [address] [address] [address], [address] [facility] [address], [place] [address] Jun, [facility] [id number] [address] Jun, [facility] [id number] [address] Jun, IMMUNIZATIONS No Known Immunizations SOCIAL HISTORY Never Assessed REASON FOR VISIT [facility] [place] VITAL SIGNS MEDICATIONS Unknown Medications RESULTS No Results PROCEDURES No Known procedures INSTRUCTIONS MEDICATIONS ADMINISTERED No Known Medications MEDICAL (GENERAL) HISTORY Type Description Date Medical History asthma Medical History headache Medical History anemia Medical History sciatica Medical History Controlled Violation [facility] 2014 Medical History "post seizure" Medical History Methamphetamine Positive UDS 2-2-19 Surgical History appendectomy 11/2013 Surgical History tubal ligation 06/2012 Surgical History section x2 Surgical History dental surgery for jock jaw 2005
--- OUTSIDE RECORDS SUMMARY | 2018-10-08 19:44 | XMS REPORT ---
Author Author Migration, Doctor Organization [facility] Address Unknown Phone Unavailable Care Team Providers Care Panama Hat Blocker Name Role Phone Migration, Doctor Unavailable Unavailable PROBLEMS Type Condition ICD9-CM Code [id number] Code Onset Dates Condition Status SNOMED Code Problem Affective disorder F39 Active 36676478 Problem Panic disorder F41.0 Active 733245771 Problem Anxiety state, unspecified F41.1 Active 060454223 Problem Low back pain M54.5 Active 235523891 Problem Generalized anxiety disorder F41.1 Active 39149582 Problem Chronic migraine without aura without status migrainosus, not intractable G43.709 Active 435587135 Problem Vaginal bleeding N93.9 Active 093061368 Problem Pain in right knee M25.561 Active 79475732 Problem Major depressive disorder, recurrent, moderate F33.1 Active 844181472 Problem Chondromalacia patellae, right knee M22.41 Active 68286792 Problem Panic attacks F41.0 Active 456377692 Problem Major depressive disorder, recurrent episode, moderate F33.1 Active 03750108 ALLERGIES No Information ENCOUNTERS Encounter Location Date Diagnosis [facility] [address] [address] August, [facility] [address] [place] [address] Jul, Vaginal bleeding N93.9 [facility] [id number] [place] [address] 12 May, 2018 Major depressive disorder, recurrent episode, moderate F33.1 ; Generalized anxiety disorder F41.1 and Panic attacks F41.0 [facility] [id number] [place] [address] 04 May, 2018 Sore throat J02.9 ; Acute bronchitis, unspecified organism J20.9 and Tonsillitis with exudate J03.90 [facility] [id number] [place] [address] 04 May, 2018 [place] [id number] [place] [address] Jul, Right upper quadrant pain R10.11 and Nausea R11.0 [place] [id number] [place] [address] Jul, Right upper quadrant pain R10.11 and Left foot pain M79.672 [place] [id number] [place] [address] Jul, [place] [id number] [place] [address] Jun, Chondromalacia patellae, right knee M22.41 [place] [id number] [place] [address] 17 May, 2016 [place] [id number] [place] [address] 14 May, 2016 Pain in right knee M25.561 [place] [id number] [place] [address] 08 May, 2016 Major depressive disorder, recurrent, moderate F33.1 [place] [id number] [place] [address] 06 May, 2016 Anxiety state, unspecified F41.1 ; Major depressive disorder, recurrent, moderate F33.1 and High risk medications (not anticoagulants) long-term use Z79.899 [place] [id number] [place] [address] Apr, [place] [id number] [place] [address] Apr, Low back pain M54.5 ; Pain in right knee M25.561 and Chronic migraine without aura without status migrainosus, not intractable G43.709 [place] [id number] [place] [address] Apr, Affective disorder F39 and Panic disorder F41.0 [facility] [id number] [place] [address] 14 Jul, 2014 [facility] [id number] [address] 13 Jul, 2014 [facility] [id number] [place] [address] 24 May, 2014 [facility] [id number] [place] [address], [place] [address] 24 May, 2014 [facility] [id number] [place] [address], [place] [address] 18 May, 2014 [facility] [id number] [place] [address], [place] [address] 18 May, 2014 [facility] [id number] [place] [address], [place] [address] 13 May, 2014 [facility] [id number] [address] 13 May, 2014 [facility] [id number] [place] [address], [place] [address] 10 May, 2014 [facility] [id number] [address] 10 May, 2014 [facility] [id number] [address] 30 Mar, 2014 [facility] [id number] [address] Mar, [facility] [id number] [place] [address] Mar, [facility] [id number] [address] Mar, [facility] [address] [address] Mar, [facility] [place] [facility] [address] [id number] [place] [address] Mar, [facility] [place] [facility] [address] [id number] [place] [address] Mar, [facility] [place] [facility] [address] [id number] [place] [address] Mar, [facility] [place] [facility] [address] [id number] [place] [address] Mar, [facility] [place] [facility] [address] [id number] [place] [address] Mar, [facility] [place] [facility] [address] [id number] [place] [address] Mar, [facility] [place] [facility] [address] [id number] [place] [address] Mar, [facility] [place] [facility] [address] [id number] [place] [address] Feb, [facility] [place] [facility] [address] [id number] [place] [address] Feb, [facility] [place] [facility] [address] [id number], [place] [address] Feb, [facility] [place] [facility] [address] [id number], [place] [address] Feb, [facility] [place] [facility] [address] [id number], [place] [address] Feb, [facility] [place] [facility] [address] [id number] [place] [address] Feb, [facility] [place] [facility] [address] [id number], [place] [address] Feb, [facility] [place] [facility] [address] [id number], [place] [address] Feb, [facility] [place] [facility] [address] [id number], [place] [address] Feb, [facility] [place] [facility] [address] [id number] [place] [address] Feb, [facility] [place] [facility] [address] [id number] [place] [address] Feb, [facility] [place] [facility] [address] [id number] [place] [address] Feb, [facility] [place] [facility] [address] [id number] [place] [address] Jan, [facility] [place] [facility] [address] [id number] [place] [address] Jan, [facility] [place] [facility] [address] [id number] [place] [address] Jan, [facility] [place] [facility] [address] [id number], [place] [address] Jan, [facility] [place] [facility] [address] [id number] [place] [address] Jan, [facility] [place] [facility] [address] [id number] [place] [address] Jan, [facility] [place] [facility] [address] [facility] [id number], [place] [address] Jan, [facility] [place] [facility] [address] [id number], [place] [address] Jan, [facility] [place] [facility] [address] [id number], [place] [address] Jan, [facility] [place] [facility] [address] [id number] [place] [address] Jan, [facility] [place] [facility] [address] [facility] [id number], [place] [address] Jan, [facility] [place] [facility] [address] [facility] [id number], [place] [address] Jan, [facility] [place] [facility] [address] [id number] [place] [address] Jan, [facility] [place] [facility] [address] [id number] [place] [address] Jan, [facility] [place] [facility] [address] [id number] [place] [address] Dec, [facility] [place] [facility] [address] [id number] [place] [address] Dec, [facility] [place] [facility] [address] [id number] [place] [address] Dec, [facility] [place] [facility] [address] [id number] [place] [address] Dec, [facility] [place] [facility] [address] [id number] [place] [address] Dec, [facility] [place] [facility] [address] [id number] [place] [address] Dec, [facility] [place] [facility] [address] [id number] [place] [address] Nov, [facility] [place] [facility] [address] [id number] [place] [address] Nov, [facility] [place] [facility] [address] [id number] [place] [address] Nov, [facility] [place] [facility] [address] [id number] [place] [address] Nov, [facility] [place] [facility] [address] [id number] [place] [address] Nov, [facility] [place] [facility] [address] [id number] [place] [address] Nov, [facility] [place] [facility] [address] [id number] [place] [address] Nov, [facility] [place] [facility] [address] [id number] [place] [address] Oct, [facility] [place] [facility] [address] [id number] [place] [address] Oct, [facility] [place] [facility] [address] [id number] [place] [address] Oct, [facility] [place] [facility] [address] [id number] [place] [address] Oct, [facility] [place] [facility] [address] [id number] [place] [address] Oct, [facility] [place] [facility] [address] [id number] [place] [address] Oct, [facility] [place] [facility] [address] [id number] [place] [address] Oct, [facility] [place] [facility] [address] [id number] [place] [address] Oct, [facility] [place] [facility] [address] [id number] [place] [address] Oct, [facility] [place] [facility] [address] [id number] [place] [address] Oct, [facility] [place] [facility] [address] [id number] [place] [address] Oct, [facility] [place] [facility] [address] [id number] [place] [address] Oct, [facility] [place] [facility] [address] [id number] [place] [address] Oct, [facility] [place] [facility] [address] [id number] [place] [address] Oct, [facility] [place] [facility] [address] [id number] [place] [address] Oct, [facility] [place] [facility] [address] [id number] [place] [address] Oct, 2013 [facility] [place] [facility] [address] [id number] [place] [address] Oct, [facility] [place] [facility] [address] [id number] [place] [address] Oct, [facility] [place] [facility] [address] [id number] [place] [address] Oct, [facility] [place] [facility] [address] [id number] [place] [address] Sep, [facility] [place] [facility] [address] [id number] [place] [address] Sep, [facility] [place] [facility] [address] [id number] [place] [address] Sep, [facility] [place] [facility] [address] [id number] [place] [address] Sep, [facility] [place] [facility] [address] [id number] [place] [address] Sep, [facility] [place] [facility] [address] [id number] [place] [address] Sep, [facility] [place] [facility] [address] [id number] [place] [address] Sep, [facility] [place] [facility] [address] [id number] [place] [address] Sep, [facility] [place] [facility] [address] [id number] [place] [address] Sep, [facility] [place] [facility] [address] [id number] [place] [address] Sep, [facility] [place] [facility] [address] [id number] [place] [address] Sep, [facility] [place] [facility] [address] [id number] [place] [address] Sep, [facility] [place] [facility] [address] [id number] [place] [address] August, [facility] [place] [facility] [address] [id number] [place] [address] August, [facility] [place] [facility] [address] [id number] [place] [address] August, [facility] [place] [facility] [address] [id number] [place] [address] August, [facility] [place] [facility] [address] [id number] [place] [address] August, [facility] [place] [facility] [address] [id number] [place] [address] August, [facility] [place] [facility] [address] [id number] [place] [address] August, [facility] [place] [facility] [address] [id number] [place] [address] August, [facility] [place] [facility] [address] [id number] [place] [address] Jul, [facility] [place] [facility] [address] [id number] [place] [address] Jul, [facility] [place] [facility] [address] [id number] [place] [address] Jul, [facility] [place] [facility] [address] [id number] [place] [address] Jul, [facility] [place] [facility] [address] [id number] [place] [address] Jun, [facility] [place] [facility] [address] [id number] [place] [address] Jun, [facility] [place] [facility] [address] [id number] [place] [address] Jun, [facility] [place] [facility] [address] [id number] [place] [address] Jun, [facility] [place] [facility] [address] [id number] [place] [address] 17 Jun, 2013 [facility] [place] [facility] [address] [id number] [place] [address] 17 Jun, 2013 [facility] [place] [facility] [address] [id number] [place] [address] 13 Jun, 2013 [facility] [place] [facility] [address] [id number] [place] [address] 13 Jun, 2013 [facility] [place] [facility] [address] [id number] [place] [address] 13 Jun, 2013 [facility] [place] [facility] [address] [id number] [place] [address] 13 Jun, 2013 [facility] [place] [facility] [address] [id number] [place] [address] 11 Jun, 2013 [facility] [place] [facility] [address] [id number] [place] [address] 11 Jun, 2013 [facility] [place] [facility] [address] [id number] [place] [address] Jun, [facility] [place] [facility] [address] [id number] [place] [address] Jun, [facility] [place] [facility] [address] [id number] [place] [address] Jun, [facility] [place] [facility] [address] [id number] [place] [address] Jun, [facility] [place] [facility] [address] [id number] [place] [address] Jun, [facility] [place] [facility] [address] [id number] [place] [address] Jun, [facility] [place] [facility] [address] [id number] [place] [address] Jun, [facility] [place] [facility] [address] [id number] [place] [address] Jun, [facility] [place] [facility] [address] [id number] [place] [address] Jun, [facility] [place] [facility] [address] [id number] [place] [address] Jun, [facility] [place] [facility] [address] [id number] [place] [address] Jun, [facility] [place] [facility] [address] [id number] [place] [address] Jun, [facility] [place] [facility] [address] [id number] [place] [address] May, [facility] [place] [facility] [address] [id number] [place] [address] May, [facility] [place] [facility] [address] [id number] [place] [address] May, [facility] [place] [facility] [address] [id number] [place] [address] May, [facility] [place] [facility] [address] [id number] [place] [address] May, [facility] [place] [facility] [address] [id number] [place] [address] May, [facility] [place] [facility] [address] [id number] [place] [address] May, [facility] [place] [facility] [address] [id number] [place] [address] May, [facility] [place] [facility] [address] [id number] [place] [address] May, [facility] [place] [facility] [address] [id number] [place] [address] Apr, [facility] [place] [facility] [address] [id number] [place] [address] Apr, [facility] [place] [facility] [address] [id number] [place] [address] Apr, [facility] [address] [id number] [place] [address] Apr, [facility] [place] [facility] [address] [id number] [place] [address] 30 Mar, 2013 [facility] [place] [facility] [address] [id number] [place] [address] 30 Mar, 2013 [facility] [place] [facility] [address] [id number] [place] [address] 16 Mar, 2013 [facility] [place] [facility] [address] [id number] [place] [address] 16 Mar, 2013 [facility] [place] [facility] [address] [id number] [place] [address] Mar, [facility] [place] [facility] [address] [id number] [place] [address] Mar, [facility] [place] [facility] [address] [id number] [place] [address] 05 Mar, 2013 [facility] [place] [facility] [address] [id number] [place] [address] 05 Mar, 2013 [facility] [place] [facility] [address] [id number] [place] [address] 14 Feb, 2013 [facility] [place] [facility] [address] [id number] [place] [address] 14 Feb, 2013 [facility] [place] [facility] [address] [id number] [place] [address] 14 Feb, 2013 [facility] [place] [facility] [address] [id number] [place] [address] 14 Feb, 2013 [facility] [place] [facility] [address] [id number] [place] [address] 13 Feb, 2013 [facility] [place] [facility] [address] [id number] [place] [address] 13 Feb, 2013 [facility] [place] [facility] [address] [id number] [place] [address] Feb, 2012 [facility] [place] [facility] [address] [id number] [place] [address] Feb, 2012 [facility] [place] [facility] [address] [id number] [place] [address] Feb, 2012 [facility] [place] [facility] [address] [id number] [place] [address] Feb, 2012 [facility] [place] [facility] [address] [id number] [place] [address] Feb, [facility] [place] [facility] [address] [id number] [place] [address] Jan, [facility] [place] [facility] [address] [id number] [place] [address] Jan, [facility] [place] [facility] [address] [id number] [place] [address] Jan, [facility] [place] [facility] [address] [id number] [place] [address] Jan, [facility] [place] [facility] [address] [id number] [place] [address] Jan, [facility] [place] [facility] [address] [id number] [place] [address] Jan, [facility] [place] [facility] [address] [id number] [place] [address] Jan, [facility] [place] [facility] [address] [id number] [place] [address] Jan, [facility] [place] [facility] [address] [id number] [place] [address] Jan, [facility] [place] [facility] [address] [id number] [place] [address] Jan, [facility] [place] [facility] [address] [id number] [place] [address] Dec, [facility] [place] [facility] [address] [id number] [place] [address] 27 Dec, 2012 [facility] [place] [facility] [address] [id number] [place] [address] 24 Dec, 2012 [facility] [place] [facility] [address] [id number] [place] [address] 19 Dec, 2012 [facility] [place] [facility] [address] [id number] [place] [address] 17 Dec, 2012 [facility] [place] [facility] [address] [id number] [place] [address] 16 Dec, 2012 [facility] [place] [facility] [address] [id number] [place] [address] 10 Dec, 2012 [facility] [place] [facility] [address] [id number] [place] [address] 27 Nov, 2012 [facility] [place] [facility] [address] [id number] [place] [address] 15 Nov, 2012 [facility] [place] [facility] [address] [id number] [place] [address] Oct, [facility] [place] [facility] [address] [id number] [place] [address] Oct, [facility] [place] [facility] [address] [id number] [place] [address] Oct, [facility] [place] [facility] [address] [id number] [place] [address] Oct, [facility] [place] [facility] [address] [id number] [place] [address] Sep, [facility] [place] [facility] [address] [id number] [place] [address] Sep, [facility] [place] [facility] [address] [id number] [place] [address] Sep, [facility] [place] [facility] [address] [id number] [place] [address] Sep, [facility] [address] [id number] [place] [address] August, [facility] [address] [id number] [place] [address] August, [facility] [address] [id number] [place] [address] August, [facility] [address] [id number] [place] [address] August, [facility] [address] [id number] [place] [address] August, [facility] [address] [id number] [place] [address] August, [facility] [address] [id number] [place] [address] Jul, [facility] [address] [id number] [place] [address] Jul, [facility] [address] [id number] [place] [address] May, [facility] [address] [id number] [place] [address] Apr, [facility] [address] [id number] [place] [address] Jan, [facility] [address] [id number] [place] [address] Jan, [facility] [place] [facility] [address] [id number] [place] [address] 29 Dec, 2011 [facility] [place] [facility] [address] [id number] [place] [address] 24 Dec, 2011 [facility] [address] [id number] [place] [address] Dec, [facility] [place] [facility] [address] [id number] [place] [address] Nov, [facility] [place] [facility] [address] [id number] [place] [address] Nov, [facility] [place] [facility] [address] [id number] [place] [address] Nov, [facility] [place] [facility] [address] [id number] [place] [address] Nov, [facility] [place] [facility] [address] [id number] [place] [address] Nov, [facility] [place] [facility] [address] [id number] [place] [address] Oct, [facility] [place] [facility] [address] [id number] [place] [address] Oct, [facility] [place] [facility] [address] [id number] [place] [address] Oct, [facility] [place] [facility] [address] [id number] [place] [address] Oct, [facility] [place] [facility] [address] [id number] [place] [address] Oct, [facility] [place] [facility] [address] [id number] [place] [address] Sep, [facility] [place] [facility] [address] [id number] [place] [address] Sep, [facility] [place] [facility] [address] [id number] [place] [address] August, [facility] [place] [facility] [address] [id number] [place] [address] August, [facility] [place] [facility] [address] [id number] [place] [address] August, [facility] [place] [facility] [address] [id number] [place] [address] 16 Aug, 2011 [facility] [address] [id number] [address] 15 Aug, 2011 [facility] [id number] [address] Jul, [facility] [id number] [address] Jul, [facility] [id number] [address] Jul, [facility] [id number] [address] 27 Jun, 2011 [facility] [id number] [address] 23 Jun, 2011 [facility] [id number] [place] [address] 16 Jun, 2011 [facility] [id number] [address] 14 Jun, 2011 [facility] [id number] [address] Jun, [facility] [id number] [address] Jun, [facility] [id number] [address] Jun, IMMUNIZATIONS No Known Immunizations SOCIAL HISTORY Never Assessed REASON FOR VISIT [facility] [place] PLAN OF CARE VITAL SIGNS MEDICATIONS Unknown Medications RESULTS No Results PROCEDURES No Known procedures INSTRUCTIONS MEDICATIONS ADMINISTERED No Known Medications MEDICAL (GENERAL) HISTORY Type Description Date Medical History asthma Medical History headache Medical History anemia Medical History sciatica Medical History Controlled Violation [facility] 2014 Medical History "post seizure" Medical History Methamphetamine Positive UDS 2-2-19 Surgical History appendectomy 11/2013 Surgical History tubal ligation 06/2012 Surgical History section x2 Surgical History dental surgery for jock jaw 2005
--- OUTSIDE RECORDS SUMMARY | 2018-10-08 19:45 | XMS REPORT ---
Author Author Migration, Doctor Organization [facility] Address Unknown Phone Unavailable Care Team Providers Care Dross Skimmer Name Role Phone Migration, Doctor Unavailable Unavailable PROBLEMS Type Condition ICD9-CM Code EMA89-WI Code Onset Dates Condition Status SNOMED Code Problem Affective disorder F39 Active 60116906 Problem Panic disorder F41.0 Active 987327241 Problem Anxiety state, unspecified F41.1 Active 082602441 Problem Low back pain M54.5 Active 168102261 Problem Generalized anxiety disorder F41.1 Active 28315060 Problem Chronic migraine without aura without status migrainosus, not intractable G43.709 Active 531844888 Problem Vaginal bleeding N93.9 Active 389015783 Problem Pain in right knee M25.561 Active 76767138 Problem Major depressive disorder, recurrent, moderate F33.1 Active 759541454 Problem Chondromalacia patellae, right knee M22.41 Active 23937795 Problem Panic attacks F41.0 Active 659490675 Problem Major depressive disorder, recurrent episode, moderate F33.1 Active [id number] ALLERGIES No Information ENCOUNTERS Encounter Location Date Diagnosis [facility] [address] [address] August, [facility] [address] [place] [address] Jul, Vaginal bleeding N93.9 [facility] [id number] [place] [address] 12 May, 2018 Major depressive disorder, recurrent episode, moderate F33.1 ; Generalized anxiety disorder F41.1 and Panic attacks F41.0 [facility] [id number] [place] [address] 04 May, 2018 Sore throat J02.9 ; Acute bronchitis, unspecified organism J20.9 and Tonsillitis with exudate J03.90 [facility] [id number] [place] [address] 04 May, 2018 [place] [id number] [place] [address] Jul, Right upper quadrant pain R10.11 and Nausea R11.0 [facility] [id number] [place] [address] Jul, Right upper quadrant pain R10.11 and Left foot pain M79.672 [place] [id number] [place] [address] Jul, [place] [id number] [place] [address] Jun, Chondromalacia patellae, right knee M22.41 [place] [id number] [place] [address] 17 May, 2016 [place] [id number] [place] [address] 14 May, 2016 Pain in right knee M25.561 [place] [id number] [place] [address] 08 May, 2016 Major depressive disorder, recurrent, moderate F33.1 [place] [id number] [place] [address] 06 May, 2016 Anxiety state, unspecified F41.1 ; Major depressive disorder, recurrent, moderate F33.1 and High risk medications (not anticoagulants) long-term use Z79.899 [place] [id number] [place] [address] Apr, [place] [id number] [place] [address] Apr, Low back pain M54.5 ; Pain in right knee M25.561 and Chronic migraine without aura without status migrainosus, not intractable G43.709 [place] [id number] [place] [address] Apr, Affective disorder F39 and Panic disorder F41.0 [facility] [address] [address] 14 Jul, 2014 [facility] [id number] [address] 13 Jul, 2014 [facility] [address] [address] 24 May, 2014 [facility] [id number] [place] [address], [place] [address] 24 May, 2014 [facility] [id number] [place] [address], [place] [address] 18 May, 2014 [facility] [id number] [place] [address], [place] [address] 18 May, 2014 [facility] [id number] [place] [address], [place] [address] 13 May, 2014 [facility] [id number] [address] 13 May, 2014 [facility] [id number] [place] [address], [place] [address] 10 May, 2014 [facility] [id number] [address] 10 May, 2014 [facility] [id number] [address] 30 Mar, 2014 [facility] [address] [address] Mar, [facility] [id number] [address] Mar, [facility] [id number] [address] Mar, [facility] [id number] [address] Mar, [facility] [place] [facility] [address] [id number] [place] [address] Mar, [facility] [place] [facility] [address] [id number] [place] [address] Mar, [facility] [place] [facility] [address] [id number] [place] [address] Mar, [facility] [place] [facility] [address] [id number] [place] [address] Mar, [facility] [place] [facility] [address] [id number] [place] [address] Mar, [facility] [place] [facility] [address] [id number] [place] [address] Mar, [facility] [place] [facility] [address] [id number] [place] [address] Mar, [facility] [place] [facility] [address] [id number] [place] [address] Feb, [facility] [place] [facility] [address] [id number] [place] [address] Feb, [facility] [place] [facility] [address] [id number] [address] Feb, [facility] [place] [facility] [address] [id number], [place] [address] Feb, [facility] [place] [facility] [address] [id number], [place] [address] Feb, [facility] [place] [facility] [address] [id number] [place] [address] Feb, [facility] [place] [facility] [address] [id number], [place] [address] Feb, [facility] [place] [facility] [address] [id number], [place] [address] Feb, [facility] [place] [facility] [address] [id number], [place] [address] Feb, [facility] [place] [facility] [address] [id number] [place] [address] Feb, [facility] [place] [facility] [address] [id number] [place] [address] Feb, [facility] [place] [facility] [address] [id number] [place] [address] Feb, [facility] [place] [facility] [address] [id number] [place] [address] Jan, [facility] [place] [facility] [address] [id number] [place] [address] Jan, [facility] [place] [facility] [address] [id number] [place] [address] Jan, [facility] [place] [facility] [address] [id number], [place] [address] Jan, [facility] [place] [facility] [address] [id number] [place] [address] Jan, [facility] [place] [facility] [address] [id number] [place] [address] Jan, [facility] [place] [facility] [address] [facility] [id number], [place] [address] Jan, [facility] [place] [facility] [address] [id number], [place] [address] Jan, [facility] [place] [facility] [address] [id number], [place] [address] Jan, [facility] [place] [facility] [address] [id number] [place] [address] Jan, [facility] [place] [facility] [address] [facility] [id number], [place] [address] Jan, [facility] [place] [facility] [address] [facility] [id number], [place] [address] Jan, [facility] [place] [facility] [address] [id number] [place] [address] Jan, [facility] [place] [facility] [address] [id number] [place] [address] Jan, [facility] [place] [facility] [address] [id number] [place] [address] Dec, [facility] [place] [facility] [address] [id number] [place] [address] Dec, [facility] [place] [facility] [address] [id number] [place] [address] Dec, [facility] [place] [facility] [address] [id number] [place] [address] Dec, [facility] [place] [facility] [address] [id number] [place] [address] Dec, [facility] [place] [facility] [address] [id number] [place] [address] Dec, [facility] [place] [facility] [address] [id number] [place] [address] Nov, [facility] [place] [facility] [address] [id number] [place] [address] Nov, [facility] [place] [facility] [address] [id number] [place] [address] Nov, [facility] [place] [facility] [address] [id number] [place] [address] Nov, [facility] [place] [facility] [address] [id number] [place] [address] Nov, [facility] [place] [facility] [address] [id number] [place] [address] Nov, [facility] [place] [facility] [address] [id number] [place] [address] Nov, [facility] [place] [facility] [address] [id number] [place] [address] Oct, [facility] [place] [facility] [address] [id number] [place] [address] Oct, [facility] [place] [facility] [address] [id number] [place] [address] Oct, [facility] [place] [facility] [address] [id number] [place] [address] Oct, [facility] [place] [facility] [address] [id number] [place] [address] Oct, [facility] [place] [facility] [address] [id number] [place] [address] Oct, [facility] [place] [facility] [address] [id number] [place] [address] Oct, [facility] [place] [facility] [address] [id number] [place] [address] Oct, [facility] [place] [facility] [address] [id number] [place] [address] Oct, [facility] [place] [facility] [address] [id number] [place] [address] Oct, [facility] [place] [facility] [address] [id number] [place] [address] Oct, [facility] [place] [facility] [address] [id number] [place] [address] Oct, [facility] [place] [facility] [address] [id number] [place] [address] Oct, [facility] [place] [facility] [address] [id number] [place] [address] Oct, [facility] [place] [facility] [address] [id number] [place] [address] Oct, [facility] [place] [facility] [address] [id number] [place] [address] Oct, 2013 [facility] [place] [facility] [address] [id number] [place] [address] Oct, [facility] [place] [facility] [address] [id number] [place] [address] Oct, [facility] [place] [facility] [address] [id number] [place] [address] Oct, [facility] [place] [facility] [address] [id number] [place] [address] Sep, [facility] [place] [facility] [address] [id number] [place] [address] Sep, [facility] [place] [facility] [address] [id number] [place] [address] Sep, [facility] [place] [facility] [address] [id number] [place] [address] Sep, [facility] [place] [facility] [address] [id number] [place] [address] Sep, [facility] [place] [facility] [address] [id number] [place] [address] Sep, [facility] [place] [facility] [address] [id number] [place] [address] Sep, [facility] [place] [facility] [address] [id number] [place] [address] Sep, [facility] [place] [facility] [address] [id number] [place] [address] Sep, [facility] [place] [facility] [address] [id number] [place] [address] Sep, [facility] [place] [facility] [address] [id number] [place] [address] Sep, [facility] [place] [facility] [address] [id number] [place] [address] Sep, [facility] [place] [facility] [address] [id number] [place] [address] August, [facility] [place] [facility] [address] [id number] [place] [address] August, [facility] [place] [facility] [address] [id number] [place] [address] August, [facility] [place] [facility] [address] [id number] [place] [address] August, [facility] [place] [facility] [address] [id number] [place] [address] August, [facility] [place] [facility] [address] [id number] [place] [address] August, [facility] [place] [facility] [address] [id number] [place] [address] August, [facility] [place] [facility] [address] [id number] [place] [address] August, [facility] [place] [facility] [address] [id number] [place] [address] Jul, [facility] [place] [facility] [address] [id number] [place] [address] Jul, [facility] [place] [facility] [address] [id number] [place] [address] Jul, [facility] [place] [facility] [address] [id number] [place] [address] Jul, [facility] [place] [facility] [address] [id number] [place] [address] Jun, [facility] [place] [facility] [address] [id number] [place] [address] Jun, [facility] [place] [facility] [address] [id number] [place] [address] Jun, [facility] [place] [facility] [address] [id number] [place] [address] Jun, [facility] [place] [facility] [address] [id number] [place] [address] 17 Jun, 2013 [facility] [place] [facility] [address] [id number] [place] [address] 17 Jun, 2013 [facility] [place] [facility] [address] [id number] [place] [address] 13 Jun, 2013 [facility] [place] [facility] [address] [id number] [place] [address] 13 Jun, 2013 [facility] [place] [facility] [address] [id number] [place] [address] 13 Jun, 2013 [facility] [place] [facility] [address] [id number] [place] [address] 13 Jun, 2013 [facility] [place] [facility] [address] [id number] [place] [address] 11 Jun, 2013 [facility] [place] [facility] [address] [id number] [place] [address] 11 Jun, 2013 [facility] [place] [facility] [address] [id number] [place] [address] Jun, [facility] [place] [facility] [address] [id number] [place] [address] Jun, [facility] [place] [facility] [address] [id number] [place] [address] Jun, [facility] [place] [facility] [address] [id number] [place] [address] Jun, [facility] [place] [facility] [address] [id number] [place] [address] Jun, [facility] [place] [facility] [address] [id number] [place] [address] Jun, [facility] [place] [facility] [address] [id number] [place] [address] Jun, [facility] [place] [facility] [address] [id number] [place] [address] Jun, [facility] [place] [facility] [address] [id number] [place] [address] Jun, [facility] [place] [facility] [address] [id number] [place] [address] Jun, [facility] [place] [facility] [address] [id number] [place] [address] Jun, [facility] [place] [facility] [address] [id number] [place] [address] Jun, [facility] [place] [facility] [address] [id number] [place] [address] May, [facility] [place] [facility] [address] [id number] [place] [address] May, [facility] [place] [facility] [address] [id number] [place] [address] May, [facility] [place] [facility] [address] [id number] [place] [address] May, [facility] [place] [facility] [address] [id number] [place] [address] May, [facility] [place] [facility] [address] [id number] [place] [address] May, [facility] [place] [facility] [address] [id number] [place] [address] May, [facility] [place] [facility] [address] [id number] [place] [address] May, [facility] [place] [facility] [address] [id number] [place] [address] May, [facility] [place] [facility] [address] [id number] [place] [address] Apr, [facility] [place] [facility] [address] [id number] [place] [address] Apr, [facility] [place] [facility] [address] [id number] [place] [address] Apr, [facility] [address] [id number] [place] [address] Apr, [facility] [place] [facility] [address] [id number] [place] [address] 30 Mar, 2013 [facility] [place] [facility] [address] [id number] [place] [address] 30 Mar, 2013 [facility] [place] [facility] [address] [id number] [place] [address] 16 Mar, 2013 [facility] [place] [facility] [address] [id number] [place] [address] 16 Mar, 2013 [facility] [place] [facility] [address] [id number] [place] [address] Mar, [facility] [place] [facility] [address] [id number] [place] [address] Mar, [facility] [place] [facility] [address] [id number] [place] [address] 05 Mar, 2013 [facility] [place] [facility] [address] [id number] [place] [address] 05 Mar, 2013 [facility] [place] [facility] [address] [id number] [place] [address] 14 Feb, 2013 [facility] [place] [facility] [address] [id number] [place] [address] 14 Feb, 2013 [facility] [place] [facility] [address] [id number] [place] [address] 14 Feb, 2013 [facility] [place] [facility] [address] [id number] [place] [address] 14 Feb, 2013 [facility] [place] [facility] [address] [id number] [place] [address] 13 Feb, 2013 [facility] [place] [facility] [address] [id number] [place] [address] 13 Feb, 2013 [facility] [place] [facility] [address] [id number] [place] [address] Feb, 2012 [facility] [place] [facility] [address] [id number] [place] [address] Feb, 2012 [facility] [place] [facility] [address] [id number] [place] [address] Feb, 2012 [facility] [place] [facility] [address] [id number] [place] [address] Feb, 2012 [facility] [place] [facility] [address] [id number] [place] [address] Feb, [facility] [place] [facility] [address] [id number] [place] [address] Jan, [facility] [place] [facility] [address] [id number] [place] [address] Jan, [facility] [place] [facility] [address] [id number] [place] [address] Jan, [facility] [place] [facility] [address] [id number] [place] [address] Jan, [facility] [place] [facility] [address] [id number] [place] [address] Jan, [facility] [place] [facility] [address] [id number] [place] [address] Jan, [facility] [place] [facility] [address] [id number] [place] [address] Jan, [facility] [place] [facility] [address] [id number] [place] [address] Jan, [facility] [place] [facility] [address] [id number] [place] [address] Jan, [facility] [place] [facility] [address] [id number] [place] [address] Jan, [facility] [place] [facility] [address] [id number] [place] [address] Dec, [facility] [place] [facility] [address] [id number] [place] [address] 27 Dec, 2012 [facility] [place] [facility] [address] [id number] [place] [address] 24 Dec, 2012 [facility] [place] [facility] [address] [id number] [place] [address] 19 Dec, 2012 [facility] [place] [facility] [address] [id number] [place] [address] 17 Dec, 2012 [facility] [place] [facility] [address] [id number] [place] [address] 16 Dec, 2012 [facility] [place] [facility] [address] [id number] [place] [address] 10 Dec, 2012 [facility] [place] [facility] [address] [id number] [place] [address] 27 Nov, 2012 [facility] [place] [facility] [address] [id number] [place] [address] 15 Nov, 2012 [facility] [place] [facility] [address] [id number] [place] [address] Oct, [facility] [place] [facility] [address] [id number] [place] [address] Oct, [facility] [place] [facility] [address] [id number] [place] [address] Oct, [facility] [place] [facility] [address] [id number] [place] [address] Oct, [facility] [place] [facility] [address] [id number] [place] [address] Sep, [facility] [place] [facility] [address] [id number] [place] [address] Sep, [facility] [place] [facility] [address] [id number] [place] [address] Sep, [facility] [place] [facility] [address] [id number] [place] [address] Sep, [facility] [address] [id number] [place] [address] August, [facility] [address] [id number] [place] [address] August, [facility] [address] [id number] [place] [address] August, [facility] [address] [id number] [place] [address] August, [facility] [address] [id number] [place] [address] August, [facility] [address] [id number] [place] [address] August, [facility] [address] [id number] [place] [address] Jul, [facility] [address] [id number] [place] [address] Jul, [facility] [address] [id number] [place] [address] May, [facility] [address] [id number] [place] [address] Apr, [facility] [address] [id number] [place] [address] Jan, [facility] [address] [id number] [place] [address] Jan, [facility] [place] [facility] [address] [id number] [place] [address] 29 Dec, 2011 [facility] [place] [facility] [address] [id number] [place] [address] 24 Dec, 2011 [facility] [address] [id number] [place] [address] Dec, [facility] [place] [facility] [address] [id number] [place] [address] Nov, [facility] [place] [facility] [address] [id number] [place] [address] Nov, [facility] [place] [facility] [address] [id number] [place] [address] Nov, [facility] [place] [facility] [address] [id number] [place] [address] Nov, [facility] [place] [facility] [address] [id number] [place] [address] Nov, [facility] [place] [facility] [address] [id number] [place] [address] Oct, [facility] [place] [facility] [address] [id number] [place] [address] Oct, [facility] [place] [facility] [address] [id number] [place] [address] Oct, [facility] [place] [facility] [address] [id number] [place] [address] Oct, [facility] [place] [facility] [address] [id number] [place] [address] Oct, [facility] [place] [facility] [address] [id number] [place] [address] Sep, [facility] [place] [facility] [address] [id number] [place] [address] Sep, [facility] [place] [facility] [address] [id number] [place] [address] August, [facility] [place] [facility] [address] [id number] [place] [address] August, [facility] [place] [facility] [address] [id number] [place] [address] August, [facility] [place] [facility] [address] [id number] [place] [address] 16 Aug, 2011 [facility] [address] [id number] [address] 15 Aug, 2011 [facility] [id number] [place] [address] Jul, [facility] [id number] [id number] Jul, [facility] [id number] [address] Jul, [facility] [id number] [address] 27 Jun, 2011 [facility] [id number] [address] 23 Jun, 2011 [facility] [id number] [address] 16 Jun, 2011 [facility] [id number] [place] [address] 14 Jun, 2011 [facility] [id number] [place] [address] Jun, [facility] [id number] [place] [address] Jun, [facility] [id number] [address] Jun, IMMUNIZATIONS No Known Immunizations SOCIAL HISTORY Never Assessed REASON FOR VISIT [facility] PLAN OF CARE VITAL SIGNS MEDICATIONS Unknown Medications RESULTS No Results PROCEDURES No Known procedures INSTRUCTIONS MEDICATIONS ADMINISTERED No Known Medications MEDICAL (GENERAL) HISTORY Type Description Date Medical History asthma Medical History headache Medical History anemia Medical History sciatica Medical History Controlled Violation [facility] 2014 Medical History "post seizure" Medical History Methamphetamine Positive UDS 2-2-19 Surgical History appendectomy 11/2013 Surgical History tubal ligation 06/2012 Surgical History section x2 Surgical History dental surgery for jock jaw 2005
--- OUTSIDE RECORDS SUMMARY | 2018-10-08 19:45 | XMS REPORT ---
Author Author Migration, Doctor Organization [facility] Address Unknown Phone Unavailable Care Team Providers Care Executive Sales Assistant Name Role Phone Migration, Doctor Unavailable Unavailable PROBLEMS Type Condition ICD9-CM Code LEF24-DO Code Onset Dates Condition Status SNOMED Code Problem Affective disorder F39 Active 85619286 Problem Panic disorder F41.0 Active 414545026 Problem Anxiety state, unspecified F41.1 Active 862012572 Problem Low back pain M54.5 Active 843103442 Problem Generalized anxiety disorder F41.1 Active 20639175 Problem Chronic migraine without aura without status migrainosus, not intractable G43.709 Active 959581475 Problem Vaginal bleeding N93.9 Active 477979747 Problem Pain in right knee M25.561 Active 83644366 Problem Major depressive disorder, recurrent, moderate F33.1 Active 987869012 Problem Chondromalacia patellae, right knee M22.41 Active 70237315 Problem Panic attacks F41.0 Active 875066294 Problem Major depressive disorder, recurrent episode, moderate F33.1 Active 13770990 ALLERGIES No Information ENCOUNTERS Encounter Location Date Diagnosis [facility] [id number] [place] [address] August, [facility] [address] [place] [address] Jul, Vaginal bleeding N93.9 [facility] [id number] [place] [address] May, Major depressive disorder, recurrent episode, moderate F33.1 ; Generalized anxiety disorder F41.1 and Panic attacks F41.0 [facility] [id number] [place] [address] 04 May, 2018 [facility] [id number] [place] [id number] 04 May, 2018 Sore throat J02.9 ; Acute bronchitis, unspecified organism J20.9 and Tonsillitis with exudate J03.90 [facility] [id number] [place] [address] Jul, Right upper quadrant pain R10.11 and Nausea R11.0 [facility] [id number] [place] [address] Jul, Right upper quadrant pain R10.11 and Left foot pain M79.672 [facility] [id number] [place] [address] Jul, [facility] [id number] [place] [address] Jun, Chondromalacia patellae, right knee M22.41 [facility] [id number] [place] [address] 17 May, 2016 [facility] [address] [address] 14 May, 2016 Pain in right knee M25.561 [facility] [id number] [place] [address] 08 May, 2016 Major depressive disorder, recurrent, moderate F33.1 [facility] [id number] [place] [address] 06 May, 2016 Anxiety state, unspecified F41.1 ; Major depressive disorder, recurrent, moderate F33.1 and High risk medications (not anticoagulants) long-term use Z79.899 [facility] [id number] [place] [address] Apr, [facility] [address] [address] Apr, Low back pain M54.5 ; Pain in right knee M25.561 and Chronic migraine without aura without status migrainosus, not intractable G43.709 [id number] [place] [address] Apr, Affective disorder F39 and Panic disorder F41.0 [facility] [address] [place] [address] 14 Jul, 2014 [facility] [address] [address] 13 Jul, 2014 [facility] [address] [place] [address] 24 May, 2014 [facility] [id number] [place] [address], [place] [address] 24 May, 2014 [facility] [id number] [place] [address], [place] [address] 18 May, 2014 [facility] [id number] [place] [address], [place] [address] 18 May, 2014 [facility] [id number] [place] [address], [place] [address] 13 May, 2014 [facility] [address] [address] 13 May, 2014 [facility] [id number] [place] [address], [place] [address] 10 May, 2014 [facility] [address] [address] 10 May, 2014 [facility] [address] [address] 30 Mar, 2014 [facility] [address] [address] Mar, [facility] [address] [place] [address] Mar, [facility] [address] [address] Mar, [facility] [address] [address] Mar, [facility] [place] [facility] [address] [id number] [place] [address] Mar, [facility] [place] [facility] [address] [id number] [place] [address] Mar, [facility] [place] [facility] [address] [id number] [place] [address] Mar, [facility] [place] [facility] [address] [id number] [place] [address] Mar, [facility] [place] [facility] [address] [id number] [place] [address] Mar, [facility] [place] [facility] [address] [id number] [place] [address] Mar, [facility] [place] [facility] [address] [id number] [place] [address] Mar, [facility] [place] [facility] [address] [id number] [place] [address] Feb, [facility] [place] [facility] [address] [id number] [place] [address] Feb, [facility] [place] [facility] [address] [id number], [place] [address] Feb, [facility] [place] [facility] [address] [id number], [place] [address] Feb, [facility] [place] [facility] [address] [id number], [place] [address] Feb, [facility] [place] [facility] [address] [id number] [place] [address] Feb, [facility] [place] [facility] [address] [id number], [place] [address] Feb, [facility] [place] [facility] [address] [id number], [place] [address] Feb, [facility] [place] [facility] [address] [id number], [place] [address] Feb, [facility] [place] [facility] [address] [id number] [place] [address] Feb, [facility] [place] [facility] [address] [id number] [place] [address] Feb, [facility] [place] [facility] [address] [id number] [place] [address] Feb, [facility] [place] [facility] [address] [id number] [place] [address] Jan, [facility] [place] [facility] [address] [id number] [place] [address] Jan, [facility] [place] [facility] [address] [id number] [place] [address] Jan, [facility] [place] [facility] [address] [id number], [place] [address] Jan, [facility] [place] [facility] [address] [id number] [place] [address] Jan, [facility] [place] [facility] [address] [id number] [place] [address] Jan, [facility] [place] [facility] [address] [facility] [id number], [place] [address] Jan, [facility] [place] [facility] [address] [id number], [place] [address] Jan, [facility] [place] [facility] [address] [id number], [place] [address] Jan, [facility] [place] [facility] [address] [id number] [place] [address] Jan, [facility] [place] [facility] [address] [facility] [id number], [place] [address] Jan, [facility] [place] [facility] [address] [facility] [id number], [place] [address] Jan, [facility] [place] [facility] [address] [id number] [place] [address] Jan, [facility] [place] [facility] [address] [id number] [place] [address] Jan, [facility] [place] [facility] [address] [id number] [place] [address] Dec, [facility] [place] [facility] [address] [id number] [place] [address] Dec, [facility] [place] [facility] [address] [id number] [place] [address] Dec, [facility] [place] [facility] [address] [id number] [place] [address] Dec, [facility] [place] [facility] [address] [id number] [place] [address] Dec, [facility] [place] [facility] [address] [id number] [place] [address] Dec, [facility] [place] [facility] [address] [id number] [place] [address] Nov, [facility] [place] [facility] [address] [id number] [place] [address] Nov, [facility] [place] [facility] [address] [id number] [place] [address] Nov, [facility] [place] [facility] [address] [id number] [place] [address] Nov, [facility] [place] [facility] [address] [id number] [place] [address] Nov, [facility] [place] [facility] [address] [id number] [place] [address] Nov, [facility] [place] [facility] [address] [id number] [place] [address] Nov, [facility] [place] [facility] [address] [id number] [place] [address] Oct, [facility] [place] [facility] [address] [id number] [place] [address] Oct, [facility] [place] [facility] [address] [id number] [place] [address] Oct, [facility] [place] [facility] [address] [id number] [place] [address] Oct, [facility] [place] [facility] [address] [id number] [place] [address] Oct, [facility] [place] [facility] [address] [id number] [place] [address] Oct, [facility] [place] [facility] [address] [id number] [place] [address] Oct, [facility] [place] [facility] [address] [id number] [place] [address] Oct, [facility] [place] [facility] [address] [id number] [place] [address] Oct, [facility] [place] [facility] [address] [id number] [place] [address] Oct, [facility] [place] [facility] [address] [id number] [place] [address] Oct, [facility] [place] [facility] [address] [id number] [place] [address] Oct, [facility] [place] [facility] [address] [id number] [place] [address] Oct, [facility] [place] [facility] [address] [id number] [place] [address] Oct, [facility] [place] [facility] [address] [id number] [place] [address] Oct, [facility] [place] [facility] [address] [id number] [place] [address] Oct, 2013 [facility] [place] [facility] [address] [id number] [place] [address] Oct, [facility] [place] [facility] [address] [id number] [place] [address] Oct, [facility] [place] [facility] [address] [id number] [place] [address] Oct, [facility] [place] [facility] [address] [id number] [place] [address] Sep, [facility] [place] [facility] [address] [id number] [place] [address] Sep, [facility] [place] [facility] [address] [id number] [place] [address] Sep, [facility] [place] [facility] [address] [id number] [place] [address] Sep, [facility] [place] [facility] [address] [id number] [place] [address] Sep, [facility] [place] [facility] [address] [id number] [place] [address] Sep, [facility] [place] [facility] [address] [id number] [place] [address] Sep, [facility] [place] [facility] [address] [id number] [place] [address] Sep, [facility] [place] [facility] [address] [id number] [place] [address] Sep, [facility] [place] [facility] [address] [id number] [place] [address] Sep, [facility] [place] [facility] [address] [id number] [place] [address] Sep, [facility] [place] [facility] [address] [id number] [place] [address] Sep, [facility] [place] [facility] [address] [id number] [place] [address] August, [facility] [place] [facility] [address] [id number] [place] [address] August, [facility] [place] [facility] [address] [id number] [place] [address] August, [facility] [place] [facility] [address] [id number] [place] [address] August, [facility] [place] [facility] [address] [id number] [place] [address] August, [facility] [place] [facility] [address] [id number] [place] [address] August, [facility] [place] [facility] [address] [id number] [place] [address] August, [facility] [place] [facility] [address] [id number] [place] [address] August, [facility] [place] [facility] [address] [id number] [place] [address] Jul, [facility] [place] [facility] [address] [id number] [place] [address] Jul, [facility] [place] [facility] [address] [id number] [place] [address] Jul, [facility] [place] [facility] [address] [id number] [place] [address] Jul, [facility] [place] [facility] [address] [id number] [place] [address] Jun, [facility] [place] [facility] [address] [id number] [place] [address] Jun, [facility] [place] [facility] [address] [id number] [place] [address] Jun, [facility] [place] [facility] [address] [id number] [place] [address] Jun, [facility] [place] [facility] [address] [id number] [place] [address] 17 Jun, 2013 [facility] [place] [facility] [address] [id number] [place] [address] 17 Jun, 2013 [facility] [place] [facility] [address] [id number] [place] [address] 13 Jun, 2013 [facility] [place] [facility] [address] [id number] [place] [address] 13 Jun, 2013 [facility] [place] [facility] [address] [id number] [place] [address] 13 Jun, 2013 [facility] [place] [facility] [address] [id number] [place] [address] 13 Jun, 2013 [facility] [place] [facility] [address] [id number] [place] [address] 11 Jun, 2013 [facility] [place] [facility] [address] [id number] [place] [address] 11 Jun, 2013 [facility] [place] [facility] [address] [id number] [place] [address] Jun, [facility] [place] [facility] [address] [id number] [place] [address] Jun, [facility] [place] [facility] [address] [id number] [place] [address] Jun, [facility] [place] [facility] [address] [id number] [place] [address] Jun, [facility] [place] [facility] [address] [id number] [place] [address] Jun, [facility] [place] [facility] [address] [id number] [place] [address] Jun, [facility] [place] [facility] [address] [id number] [place] [address] Jun, [facility] [place] [facility] [address] [id number] [place] [address] Jun, [facility] [place] [facility] [address] [id number] [place] [address] Jun, [facility] [place] [facility] [address] [id number] [place] [address] Jun, [facility] [place] [facility] [address] [id number] [place] [address] Jun, [facility] [place] [facility] [address] [id number] [place] [address] Jun, [facility] [place] [facility] [address] [id number] [place] [address] May, [facility] [place] [facility] [address] [id number] [place] [address] May, [facility] [place] [facility] [address] [id number] [place] [address] May, [facility] [place] [facility] [address] [id number] [place] [address] May, [facility] [place] [facility] [address] [id number] [place] [address] May, [facility] [place] [facility] [address] [id number] [place] [address] May, [facility] [place] [facility] [address] [id number] [place] [address] May, [facility] [place] [facility] [address] [id number] [place] [address] May, [facility] [place] [facility] [address] [id number] [place] [address] May, [facility] [place] [facility] [address] [id number] [place] [address] Apr, [facility] [place] [facility] [address] [id number] [place] [address] Apr, [facility] [place] [facility] [address] [id number] [place] [address] Apr, [facility] [address] [id number] [place] [address] Apr, [facility] [place] [facility] [address] [id number] [place] [address] 30 Mar, 2013 [facility] [place] [facility] [address] [id number] [place] [address] 30 Mar, 2013 [facility] [place] [facility] [address] [id number] [place] [address] 16 Mar, 2013 [facility] [place] [facility] [address] [id number] [place] [address] 16 Mar, 2013 [facility] [place] [facility] [address] [id number] [place] [address] Mar, [facility] [place] [facility] [address] [id number] [place] [address] Mar, [facility] [place] [facility] [address] [id number] [place] [address] 05 Mar, 2013 [facility] [place] [facility] [address] [id number] [place] [address] 05 Mar, 2013 [facility] [place] [facility] [address] [id number] [place] [address] 14 Feb, 2013 [facility] [place] [facility] [address] [id number] [place] [address] 14 Feb, 2013 [facility] [place] [facility] [address] [id number] [place] [address] 14 Feb, 2013 [facility] [place] [facility] [address] [id number] [place] [address] 14 Feb, 2013 [facility] [place] [facility] [address] [id number] [place] [address] 13 Feb, 2013 [facility] [place] [facility] [address] [id number] [place] [address] 13 Feb, 2013 [facility] [place] [facility] [address] [id number] [place] [address] Feb, 2012 [facility] [place] [facility] [address] [id number] [place] [address] Feb, 2012 [facility] [place] [facility] [address] [id number] [place] [address] Feb, 2012 [facility] [place] [facility] [address] [id number] [place] [address] Feb, 2012 [facility] [place] [facility] [address] [id number] [place] [address] Feb, [facility] [place] [facility] [address] [id number] [place] [address] Jan, [facility] [place] [facility] [address] [id number] [place] [address] Jan, [facility] [place] [facility] [address] [id number] [place] [address] Jan, [facility] [place] [facility] [address] [id number] [place] [address] Jan, [facility] [place] [facility] [address] [id number] [place] [address] Jan, [facility] [place] [facility] [address] [id number] [place] [address] Jan, [facility] [place] [facility] [address] [id number] [place] [address] Jan, [facility] [place] [facility] [address] [id number] [place] [address] Jan, [facility] [place] [facility] [address] [id number] [place] [address] Jan, [facility] [place] [facility] [address] [id number] [place] [address] Jan, [facility] [place] [facility] [address] [id number] [place] [address] Dec, [facility] [place] [facility] [address] [id number] [place] [address] 27 Dec, 2012 [facility] [place] [facility] [address] [id number] [place] [address] 24 Dec, 2012 [facility] [place] [facility] [address] [id number] [place] [address] 19 Dec, 2012 [facility] [place] [facility] [address] [id number] [place] [address] 17 Dec, 2012 [facility] [place] [facility] [address] [id number] [place] [address] 16 Dec, 2012 [facility] [place] [facility] [address] [id number] [place] [address] 10 Dec, 2012 [facility] [place] [facility] [address] [id number] [place] [address] 27 Nov, 2012 [facility] [place] [facility] [address] [id number] [place] [address] 15 Nov, 2012 [facility] [place] [facility] [address] [id number] [place] [address] Oct, [facility] [place] [facility] [address] [id number] [place] [address] Oct, [facility] [place] [facility] [address] [id number] [place] [address] Oct, [facility] [place] [facility] [address] [id number] [place] [address] Oct, [facility] [place] [facility] [address] [id number] [place] [address] Sep, [facility] [place] [facility] [address] [id number] [place] [address] Sep, [facility] [place] [facility] [address] [id number] [place] [address] Sep, [facility] [place] [facility] [address] [id number] [place] [address] Sep, [facility] [address] [id number] [place] [address] August, [facility] [address] [id number] [place] [address] August, [facility] [address] [id number] [place] [address] August, [facility] [address] [id number] [place] [address] August, [facility] [address] [id number] [place] [address] August, [facility] [address] [id number] [place] [address] August, [facility] [address] [id number] [place] [address] Jul, [facility] [address] [id number] [place] [address] Jul, [facility] [address] [id number] [place] [address] May, [facility] [address] [id number] [place] [address] Apr, [facility] [address] [id number] [place] [address] Jan, [facility] [address] [id number] [place] [address] Jan, [facility] [place] [facility] [address] [id number] [place] [address] 29 Dec, 2011 [facility] [place] [facility] [address] [id number] [place] [address] 24 Dec, 2011 [facility] [address] [id number] [place] [address] Dec, [facility] [place] [facility] [address] [id number] [place] [address] Nov, [facility] [place] [facility] [address] [id number] [place] [address] Nov, [facility] [place] [facility] [address] [id number] [place] [address] Nov, [facility] [place] [facility] [address] [id number] [place] [address] Nov, [facility] [place] [facility] [address] [id number] [place] [address] Nov, [facility] [place] [facility] [address] [id number] [place] [address] Oct, [facility] [place] [facility] [address] [id number] [place] [address] Oct, [facility] [place] [facility] [address] [id number] [place] [address] Oct, [facility] [place] [facility] [address] [id number] [place] [address] Oct, [facility] [place] [facility] [address] [id number] [place] [address] Oct, [facility] [place] [facility] [address] [id number] [place] [address] Sep, [facility] [place] [facility] [address] [id number] [place] [address] Sep, [facility] [place] [facility] [address] [id number] [place] [address] August, [facility] [place] [facility] [address] [id number] [place] [address] August, [facility] [place] [facility] [address] [id number] [place] [address] August, [facility] [place] [facility] [address] [id number] [place] [address] 16 Aug, 2011 [facility] [id number] [address] 15 Aug, 2011 [facility] [id number] [place] [address] Jul, [facility] [id number] [address] Jul, [facility] [id number] [place] [address] Jul, [facility] [id number] [place] [address] 27 Jun, 2011 [facility] [id number], [place] [address] 23 Jun, 2011 [facility] [id number] [place] [address] 16 Jun, 2011 [facility] [address] [place] [address] 14 Jun, 2011 [facility] [address] [id number] [address] Jun, [facility] [id number], [place] [address] Jun, [facility] [id number], [place] [address] Jun, IMMUNIZATIONS No Known Immunizations SOCIAL HISTORY Never Assessed REASON FOR VISIT [facility] [place] PLAN OF CARE VITAL SIGNS MEDICATIONS Unknown Medications RESULTS No Results PROCEDURES No Known procedures INSTRUCTIONS MEDICATIONS ADMINISTERED No Known Medications MEDICAL (GENERAL) HISTORY Type Description Date Medical History asthma Medical History headache Medical History anemia Medical History sciatica Medical History Controlled Violation [facility] 2014 Medical History "post seizure" Medical History Methamphetamine Positive UDS 2-2-19 Surgical History appendectomy 11/2013 Surgical History tubal ligation 06/2012 Surgical History section x2 Surgical History dental surgery for jock jaw 2005
[2018-10-08] MEDS ORDERED: NS IV 1000 ML 1,000 ML IV SCH (19:46)
--- OUTSIDE RECORDS SUMMARY | 2018-10-08 19:46 | XMS REPORT ---
Author Author Migration, Doctor Organization [facility] Address Unknown Phone Unavailable Care Team Providers Care Deputy Program Manager Name Role Phone Migration, Doctor Unavailable Unavailable PROBLEMS Type Condition ICD9-CM Code OSE55-TS Code Onset Dates Condition Status SNOMED Code Problem Affective disorder F39 Active 94427268 Problem Panic disorder F41.0 Active 466547175 Problem Anxiety state, unspecified F41.1 Active 775133929 Problem Low back pain M54.5 Active 624251521 Problem Generalized anxiety disorder F41.1 Active 50542222 Problem Chronic migraine without aura without status migrainosus, not intractable G43.709 Active 500025262 Problem Vaginal bleeding N93.9 Active 082132237 Problem Pain in right knee M25.561 Active 30222061 Problem Major depressive disorder, recurrent, moderate F33.1 Active 265822356 Problem Chondromalacia patellae, right knee M22.41 Active 57889779 Problem Panic attacks F41.0 Active 830683296 Problem Major depressive disorder, recurrent episode, moderate F33.1 Active [id number] ALLERGIES No Information ENCOUNTERS Encounter Location Date Diagnosis [facility] [id number] [place] [address] August, [facility] [address] [place] [address] Jul, Vaginal bleeding N93.9 [facility] [id number] [place] [address] May, Major depressive disorder, recurrent episode, moderate F33.1 ; Generalized anxiety disorder F41.1 and Panic attacks F41.0 [facility] [id number] [place] [address] 04 May, 2018 [facility] [id number] [place] [address] 04 May, 2018 Sore throat J02.9 ; Acute bronchitis, unspecified organism J20.9 and Tonsillitis with exudate J03.90 [place] [id number] [place] [address] Jul, Right upper quadrant pain R10.11 and Nausea R11.0 [place] [id number] [place] [address] Jul, Right upper quadrant pain R10.11 and Left foot pain M79.672 [place] [id number] [place] [address] Jul, [facility] [id number] [place] [address] Jun, Chondromalacia patellae, right knee M22.41 [place] [id number] [place] [address] 17 May, 2016 [place] [address] [address] 14 May, 2016 Pain in right knee M25.561 [place] [id number] [place] [address] 08 May, 2016 Major depressive disorder, recurrent, moderate F33.1 [place] [id number] [place] [address] 06 May, 2016 Anxiety state, unspecified F41.1 ; Major depressive disorder, recurrent, moderate F33.1 and High risk medications (not anticoagulants) long-term use Z79.899 [place] [id number] [place] [address] Apr, [place] [address] [address] Apr, Low back pain M54.5 ; Pain in right knee M25.561 and Chronic migraine without aura without status migrainosus, not intractable G43.709 [id number] [place] [address] Apr, Affective disorder F39 and Panic disorder F41.0 [facility] [id number] [place] [address] 14 Jul, 2014 [facility] [id number] [address] 13 Jul, 2014 [facility] [id number] [place] [address] 24 May, 2014 [facility] [id number] [place] [address], [place] [address] 24 May, 2014 [facility] [id number] [place] [address], [place] [address] 18 May, 2014 [facility] [id number] [place] [address], [place] [address] 18 May, 2014 [facility] [id number] [place] [address], [place] [address] 13 May, 2014 [facility] [id number] [address] 13 May, 2014 [facility] [id number] [place] [address], [place] [address] 10 May, 2014 [facility] [id number] [address] 10 May, 2014 [facility] [id number] [address] 30 Mar, 2014 [facility] [id number], [place] [address] Mar, [facility] [id number] [place] [address] Mar, [facility] [id number] [address] Mar, [facility] [address], [place] [address] Mar, [facility] [place] [facility] [address] [id number] [place] [address] Mar, [facility] [place] [facility] [address] [id number] [place] [address] Mar, [facility] [place] [facility] [address] [id number] [place] [address] Mar, [facility] [place] [facility] [address] [id number] [place] [address] Mar, [facility] [place] [facility] [address] [id number] [place] [address] Mar, [facility] [place] [facility] [address] [id number] [place] [address] Mar, [facility] [place] [facility] [address] [id number] [place] [address] Mar, [facility] [place] [facility] [address] [id number] [place] [address] Feb, [facility] [place] [facility] [address] [id number] [place] [address] Feb, [facility] [place] [facility] [address] [id number], [place] [address] Feb, [facility] [place] [facility] [address] [id number], [place] [address] Feb, [facility] [place] [facility] [address] [id number], [place] [address] Feb, [facility] [place] [facility] [address] [id number] [place] [address] Feb, [facility] [place] [facility] [address] [id number], [place] [address] Feb, [facility] [place] [facility] [address] [id number], [place] [address] Feb, [facility] [place] [facility] [address] [id number], [place] [address] Feb, [facility] [place] [facility] [address] [id number] [place] [address] Feb, [facility] [place] [facility] [address] [id number] [place] [address] Feb, [facility] [place] [facility] [address] [id number] [place] [address] Feb, [facility] [place] [facility] [address] [id number] [place] [address] Jan, [facility] [place] [facility] [address] [id number] [place] [address] Jan, [facility] [place] [facility] [address] [id number] [place] [address] Jan, [facility] [place] [facility] [address] [id number], [place] [address] Jan, [facility] [place] [facility] [address] [id number] [place] [address] Jan, [facility] [place] [facility] [address] [id number] [place] [address] Jan, [facility] [place] [facility] [address] [facility] [id number], [place] [address] Jan, [facility] [place] [facility] [address] [id number], [place] [address] Jan, [facility] [place] [facility] [address] [id number], [place] [address] Jan, [facility] [place] [facility] [address] [id number] [place] [address] Jan, [facility] [place] [facility] [address] [facility] [id number], [place] [address] Jan, [facility] [place] [facility] [address] [facility] [id number], [place] [address] Jan, [facility] [place] [facility] [address] [id number] [place] [address] Jan, [facility] [place] [facility] [address] [id number] [place] [address] Jan, [facility] [place] [facility] [address] [id number] [place] [address] Dec, [facility] [place] [facility] [address] [id number] [place] [address] Dec, [facility] [place] [facility] [address] [id number] [place] [address] Dec, [facility] [place] [facility] [address] [id number] [place] [address] Dec, [facility] [place] [facility] [address] [id number] [place] [address] Dec, [facility] [place] [facility] [address] [id number] [place] [address] Dec, [facility] [place] [facility] [address] [id number] [place] [address] Nov, [facility] [place] [facility] [address] [id number] [place] [address] Nov, [facility] [place] [facility] [address] [id number] [place] [address] Nov, [facility] [place] [facility] [address] [id number] [place] [address] Nov, [facility] [place] [facility] [address] [id number] [place] [address] Nov, [facility] [place] [facility] [address] [id number] [place] [address] Nov, [facility] [place] [facility] [address] [id number] [place] [address] Nov, [facility] [place] [facility] [address] [id number] [place] [address] Oct, [facility] [place] [facility] [address] [id number] [place] [address] Oct, [facility] [place] [facility] [address] [id number] [place] [address] Oct, [facility] [place] [facility] [address] [id number] [place] [address] Oct, [facility] [place] [facility] [address] [id number] [place] [address] Oct, [facility] [place] [facility] [address] [id number] [place] [address] Oct, [facility] [place] [facility] [address] [id number] [place] [address] Oct, [facility] [place] [facility] [address] [id number] [place] [address] Oct, [facility] [place] [facility] [address] [id number] [place] [address] Oct, [facility] [place] [facility] [address] [id number] [place] [address] Oct, [facility] [place] [facility] [address] [id number] [place] [address] Oct, [facility] [place] [facility] [address] [id number] [place] [address] Oct, [facility] [place] [facility] [address] [id number] [place] [address] Oct, [facility] [place] [facility] [address] [id number] [place] [address] Oct, [facility] [place] [facility] [address] [id number] [place] [address] Oct, [facility] [place] [facility] [address] [id number] [place] [address] Oct, 2013 [facility] [place] [facility] [address] [id number] [place] [address] Oct, [facility] [place] [facility] [address] [id number] [place] [address] Oct, [facility] [place] [facility] [address] [id number] [place] [address] Oct, [facility] [place] [facility] [address] [id number] [place] [address] Sep, [facility] [place] [facility] [address] [id number] [place] [address] Sep, [facility] [place] [facility] [address] [id number] [place] [address] Sep, [facility] [place] [facility] [address] [id number] [place] [address] Sep, [facility] [place] [facility] [address] [id number] [place] [address] Sep, [facility] [place] [facility] [address] [id number] [place] [address] Sep, [facility] [place] [facility] [address] [id number] [place] [address] Sep, [facility] [place] [facility] [address] [id number] [place] [address] Sep, [facility] [place] [facility] [address] [id number] [place] [address] Sep, [facility] [place] [facility] [address] [id number] [place] [address] Sep, [facility] [place] [facility] [address] [id number] [place] [address] Sep, [facility] [place] [facility] [address] [id number] [place] [address] Sep, [facility] [place] [facility] [address] [id number] [place] [address] August, [facility] [place] [facility] [address] [id number] [place] [address] August, [facility] [place] [facility] [address] [id number] [place] [address] August, [facility] [place] [facility] [address] [id number] [place] [address] August, [facility] [place] [facility] [address] [id number] [place] [address] August, [facility] [place] [facility] [address] [id number] [place] [address] August, [facility] [place] [facility] [address] [id number] [place] [address] August, [facility] [place] [facility] [address] [id number] [place] [address] August, [facility] [place] [facility] [address] [id number] [place] [address] Jul, [facility] [place] [facility] [address] [id number] [place] [address] Jul, [facility] [place] [facility] [address] [id number] [place] [address] Jul, [facility] [place] [facility] [address] [id number] [place] [address] Jul, [facility] [place] [facility] [address] [id number] [place] [address] Jun, [facility] [place] [facility] [address] [id number] [place] [address] Jun, [facility] [place] [facility] [address] [id number] [place] [address] Jun, [facility] [place] [facility] [address] [id number] [place] [address] Jun, [facility] [place] [facility] [address] [id number] [place] [address] 17 Jun, 2013 [facility] [place] [facility] [address] [id number] [place] [address] 17 Jun, 2013 [facility] [place] [facility] [address] [id number] [place] [address] 13 Jun, 2013 [facility] [place] [facility] [address] [id number] [place] [address] 13 Jun, 2013 [facility] [place] [facility] [address] [id number] [place] [address] 13 Jun, 2013 [facility] [place] [facility] [address] [id number] [place] [address] 13 Jun, 2013 [facility] [place] [facility] [address] [id number] [place] [address] 11 Jun, 2013 [facility] [place] [facility] [address] [id number] [place] [address] 11 Jun, 2013 [facility] [place] [facility] [address] [id number] [place] [address] Jun, [facility] [place] [facility] [address] [id number] [place] [address] Jun, [facility] [place] [facility] [address] [id number] [place] [address] Jun, [facility] [place] [facility] [address] [id number] [place] [address] Jun, [facility] [place] [facility] [address] [id number] [place] [address] Jun, [facility] [place] [facility] [address] [id number] [place] [address] Jun, [facility] [place] [facility] [address] [id number] [place] [address] Jun, [facility] [place] [facility] [address] [id number] [place] [address] Jun, [facility] [place] [facility] [address] [id number] [place] [address] Jun, [facility] [place] [facility] [address] [id number] [place] [address] Jun, [facility] [place] [facility] [address] [id number] [place] [address] Jun, [facility] [place] [facility] [address] [id number] [place] [address] Jun, [facility] [place] [facility] [address] [id number] [place] [address] May, [facility] [place] [facility] [address] [id number] [place] [address] May, [facility] [place] [facility] [address] [id number] [place] [address] May, [facility] [place] [facility] [address] [id number] [place] [address] May, [facility] [place] [facility] [address] [id number] [place] [address] May, [facility] [place] [facility] [address] [id number] [place] [address] May, [facility] [place] [facility] [address] [id number] [place] [address] May, [facility] [place] [facility] [address] [id number] [place] [address] May, [facility] [place] [facility] [address] [id number] [place] [address] May, [facility] [place] [facility] [address] [id number] [place] [address] Apr, [facility] [place] [facility] [address] [id number] [place] [address] Apr, [facility] [place] [facility] [address] [id number] [place] [address] Apr, [facility] [address] [id number] [place] [address] Apr, [facility] [place] [facility] [address] [id number] [place] [address] 30 Mar, 2013 [facility] [place] [facility] [address] [id number] [place] [address] 30 Mar, 2013 [facility] [place] [facility] [address] [id number] [place] [address] 16 Mar, 2013 [facility] [place] [facility] [address] [id number] [place] [address] 16 Mar, 2013 [facility] [place] [facility] [address] [id number] [place] [address] Mar, [facility] [place] [facility] [address] [id number] [place] [address] Mar, [facility] [place] [facility] [address] [id number] [place] [address] 05 Mar, 2013 [facility] [place] [facility] [address] [id number] [place] [address] 05 Mar, 2013 [facility] [place] [facility] [address] [id number] [place] [address] 14 Feb, 2013 [facility] [place] [facility] [address] [id number] [place] [address] 14 Feb, 2013 [facility] [place] [facility] [address] [id number] [place] [address] 14 Feb, 2013 [facility] [place] [facility] [address] [id number] [place] [address] 14 Feb, 2013 [facility] [place] [facility] [address] [id number] [place] [address] 13 Feb, 2013 [facility] [place] [facility] [address] [id number] [place] [address] 13 Feb, 2013 [facility] [place] [facility] [address] [id number] [place] [address] Feb, 2012 [facility] [place] [facility] [address] [id number] [place] [address] Feb, 2012 [facility] [place] [facility] [address] [id number] [place] [address] Feb, 2012 [facility] [place] [facility] [address] [id number] [place] [address] Feb, 2012 [facility] [place] [facility] [address] [id number] [place] [address] Feb, [facility] [place] [facility] [address] [id number] [place] [address] Jan, [facility] [place] [facility] [address] [id number] [place] [address] Jan, [facility] [place] [facility] [address] [id number] [place] [address] Jan, [facility] [place] [facility] [address] [id number] [place] [address] Jan, [facility] [place] [facility] [address] [id number] [place] [address] Jan, [facility] [place] [facility] [address] [id number] [place] [address] Jan, [facility] [place] [facility] [address] [id number] [place] [address] Jan, [facility] [place] [facility] [address] [id number] [place] [address] Jan, [facility] [place] [facility] [address] [id number] [place] [address] Jan, [facility] [place] [facility] [address] [id number] [place] [address] Jan, [facility] [place] [facility] [address] [id number] [place] [address] Dec, [facility] [place] [facility] [address] [id number] [place] [address] 27 Dec, 2012 [facility] [place] [facility] [address] [id number] [place] [address] 24 Dec, 2012 [facility] [place] [facility] [address] [id number] [place] [address] 19 Dec, 2012 [facility] [place] [facility] [address] [id number] [place] [address] 17 Dec, 2012 [facility] [place] [facility] [address] [id number] [place] [address] 16 Dec, 2012 [facility] [place] [facility] [address] [id number] [place] [address] 10 Dec, 2012 [facility] [place] [facility] [address] [id number] [place] [address] 27 Nov, 2012 [facility] [place] [facility] [address] [id number] [place] [address] 15 Nov, 2012 [facility] [place] [facility] [address] [id number] [place] [address] Oct, [facility] [place] [facility] [address] [id number] [place] [address] Oct, [facility] [place] [facility] [address] [id number] [place] [address] Oct, [facility] [place] [facility] [address] [id number] [place] [address] Oct, [facility] [place] [facility] [address] [id number] [place] [address] Sep, [facility] [place] [facility] [address] [id number] [place] [address] Sep, [facility] [place] [facility] [address] [id number] [place] [address] Sep, [facility] [place] [facility] [address] [id number] [place] [address] Sep, [facility] [address] [id number] [place] [address] August, [facility] [address] [id number] [place] [address] August, [facility] [address] [id number] [place] [address] August, [facility] [address] [id number] [place] [address] August, [facility] [address] [id number] [place] [address] August, [facility] [address] [id number] [place] [address] August, [facility] [address] [id number] [place] [address] Jul, [facility] [address] [id number] [place] [address] Jul, [facility] [address] [id number] [place] [address] May, [facility] [address] [id number] [place] [address] Apr, [facility] [address] [id number] [place] [address] Jan, [facility] [address] [id number] [place] [address] Jan, [facility] [place] [facility] [address] [id number] [place] [address] 29 Dec, 2011 [facility] [place] [facility] [address] [id number] [place] [address] 24 Dec, 2011 [facility] [address] [id number] [place] [address] Dec, [facility] [place] [facility] [address] [id number] [place] [address] Nov, [facility] [place] [facility] [address] [id number] [place] [address] Nov, [facility] [place] [facility] [address] [id number] [place] [address] Nov, [facility] [place] [facility] [address] [id number] [place] [address] Nov, [facility] [place] [facility] [address] [id number] [place] [address] Nov, [facility] [place] [facility] [address] [id number] [place] [address] Oct, [facility] [place] [facility] [address] [id number] [place] [address] Oct, [facility] [place] [facility] [address] [id number] [place] [address] Oct, [facility] [place] [facility] [address] [id number] [place] [address] Oct, [facility] [place] [facility] [address] [id number] [place] [address] Oct, [facility] [place] [facility] [address] [id number] [place] [address] Sep, [facility] [place] [facility] [address] [id number] [place] [address] Sep, [facility] [place] [facility] [address] [id number] [place] [address] August, [facility] [place] [facility] [address] [id number] [place] [address] August, [facility] [place] [facility] [address] [id number] [place] [address] August, [facility] [place] [facility] [address] [id number] [place] [address] 16 Aug, 2011 [facility] [address] [id number] [address] 15 Aug, 2011 [facility] [id number], [place] [address] Jul, [facility] [id number] [place] [address] Jul, [facility] [id number] [place] [address] Jul, [facility] [id number] [place] [address] 27 Jun, 2011 [facility] [id number] [place] [address] 23 Jun, 2011 [facility] [id number] [place] [address] 16 Jun, 2011 [facility] [id number] [place] [address] 14 Jun, 2011 [facility] [facility] [id number], [place] [address] Jun, [facility] [id number], [place] [address] Jun, [facility] [id number], [place] [address] Jun, IMMUNIZATIONS No Known Immunizations SOCIAL HISTORY Never Assessed REASON FOR VISIT [facility] [place] VITAL SIGNS MEDICATIONS Unknown Medications RESULTS No Results PROCEDURES No Known procedures INSTRUCTIONS MEDICATIONS ADMINISTERED No Known Medications MEDICAL (GENERAL) HISTORY Type Description Date Medical History asthma Medical History headache Medical History anemia Medical History sciatica Medical History Controlled Violation [facility] 2014 Medical History "post seizure" Medical History Methamphetamine Positive UDS 2-2-19 Surgical History appendectomy 11/2013 Surgical History tubal ligation 06/2012 Surgical History section x2 Surgical History dental surgery for jock jaw 2005
--- OUTSIDE RECORDS SUMMARY | 2018-10-08 19:47 | XMS REPORT ---
Author Author Migration, Doctor Organization [facility] Address Unknown Phone Unavailable Care Team Providers Care Presto Log Operator Name Role Phone Migration, Doctor Unavailable Unavailable PROBLEMS Type Condition ICD9-CM Code VZK41-DD Code Onset Dates Condition Status SNOMED Code Problem Affective disorder F39 Active [id number] Problem Panic disorder F41.0 Active 204945556 Problem Anxiety state, unspecified F41.1 Active 813954166 Problem Low back pain M54.5 Active 712623306 Problem Generalized anxiety disorder F41.1 Active 09772709 Problem Chronic migraine without aura without status migrainosus, not intractable G43.709 Active 468791323 Problem Vaginal bleeding N93.9 Active 052486984 Problem Pain in right knee M25.561 Active 66773744 Problem Major depressive disorder, recurrent, moderate F33.1 Active 929059587 Problem Chondromalacia patellae, right knee M22.41 Active 50116860 Problem Panic attacks F41.0 Active 528496008 Problem Major depressive disorder, recurrent episode, moderate F33.1 Active 74616564 ALLERGIES No Information ENCOUNTERS Encounter Location Date Diagnosis [facility] [id number] [place] [address] August, [facility] [address] [place] [address] Jul, Vaginal bleeding N93.9 [facility] [id number] [place] [address] May, Major depressive disorder, recurrent episode, moderate F33.1 ; Generalized anxiety disorder F41.1 and Panic attacks F41.0 [facility] [id number] [place] [address] 04 May, 2018 [facility] [id number] [place] [address] 04 May, 2018 Sore throat J02.9 ; Acute bronchitis, unspecified organism J20.9 and Tonsillitis with exudate J03.90 [facility] [id number] [place] [address] Jul, Right upper quadrant pain R10.11 and Nausea R11.0 [facility] [id number] [place] [address] Jul, Right upper quadrant pain R10.11 and Left foot pain M79.672 [facility] [id number] [place] [address] Jul, [facility] [id number] [place] [address] Jun, Chondromalacia patellae, right knee M22.41 [facility] [id number] [place] [address] 17 May, 2016 [facility] [facility] [address] [address] 14 May, 2016 Pain in right knee M25.561 [facility] [id number] [place] [address] 08 May, 2016 Major depressive disorder, recurrent, moderate F33.1 [facility] [id number] [place] [address] 06 May, 2016 Anxiety state, unspecified F41.1 ; Major depressive disorder, recurrent, moderate F33.1 and High risk medications (not anticoagulants) long-term use Z79.899 [facility] [id number] [place] [address] Apr, [facility] [address] [address] Apr, Low back pain M54.5 ; Pain in right knee M25.561 and Chronic migraine without aura without status migrainosus, not intractable G43.709 [id number] [place] [address] Apr, Affective disorder F39 and Panic disorder F41.0 [facility] [id number] [place] [address] 14 Jul, 2014 [facility] [address] [address] 13 Jul, 2014 [facility] [address] [place] [address] 24 May, 2014 [facility] [id number] [place] [address], [place] [address] 24 May, 2014 [facility] [id number] [place] [address], [place] [address] 18 May, 2014 [facility] [id number] [place] [address], [place] [address] 18 May, 2014 [facility] [id number] [place] [address], [place] [address] 13 May, 2014 [facility] [address], [place] [address] 13 May, 2014 [facility] [id number] [place] [address], [place] [address] 10 May, 2014 [facility] [address] [address] 10 May, 2014 [facility] [address], [place] [address] 30 Mar, 2014 [facility] [address], [place] [address] Mar, [facility] [address] [place] [address] Mar, [facility] [address], [place] [address] Mar, [facility] [address], [place] [address] Mar, [facility] [place] [facility] [address] [id number] [place] [address] Mar, [facility] [place] [facility] [address] [id number] [place] [address] Mar, [facility] [place] [facility] [address] [id number] [place] [address] Mar, [facility] [place] [facility] [address] [id number] [place] [address] Mar, [facility] [place] [facility] [address] [id number] [place] [address] Mar, [facility] [place] [facility] [address] [id number] [place] [address] Mar, [facility] [place] [facility] [address] [id number] [place] [address] Mar, [facility] [place] [facility] [address] [id number] [place] [address] Feb, [facility] [place] [facility] [address] [id number] [place] [address] Feb, [facility] [place] [facility] [address] [id number], [place] [address] Feb, [facility] [place] [facility] [address] [id number], [place] [address] Feb, [facility] [place] [facility] [address] [id number], [place] [address] Feb, [facility] [place] [facility] [address] [id number] [place] [address] Feb, [facility] [place] [facility] [address] [id number], [place] [address] Feb, [facility] [place] [facility] [address] [id number], [place] [address] Feb, [facility] [place] [facility] [address] [id number], [place] [address] Feb, [facility] [place] [facility] [address] [id number] [place] [address] Feb, [facility] [place] [facility] [address] [id number] [place] [address] Feb, [facility] [place] [facility] [address] [id number] [place] [address] Feb, [facility] [place] [facility] [address] [id number] [place] [address] Jan, [facility] [place] [facility] [address] [id number] [place] [address] Jan, [facility] [place] [facility] [address] [id number] [place] [address] Jan, [facility] [place] [facility] [address] [id number], [place] [address] Jan, [facility] [place] [facility] [address] [id number] [place] [address] Jan, [facility] [place] [facility] [address] [id number] [place] [address] Jan, [facility] [place] [facility] [address] [facility] [id number], [place] [address] Jan, [facility] [place] [facility] [address] [id number], [place] [address] Jan, [facility] [place] [facility] [address] [id number], [place] [address] Jan, [facility] [place] [facility] [address] [id number] [place] [address] Jan, [facility] [place] [facility] [address] [facility] [id number] [address] Jan, [facility] [place] [facility] [address] [facility] [id number], [place] [address] Jan, [facility] [place] [facility] [address] [id number] [place] [address] Jan, [facility] [place] [facility] [address] [id number] [place] [address] Jan, [facility] [place] [facility] [address] [id number] [place] [address] Dec, [facility] [place] [facility] [address] [id number] [place] [address] Dec, [facility] [place] [facility] [address] [id number] [place] [address] Dec, [facility] [place] [facility] [address] [id number] [place] [address] Dec, [facility] [place] [facility] [address] [id number] [place] [address] Dec, [facility] [place] [facility] [address] [id number] [place] [address] Dec, [facility] [place] [facility] [address] [id number] [place] [address] Nov, [facility] [place] [facility] [address] [id number] [place] [address] Nov, [facility] [place] [facility] [address] [id number] [place] [address] Nov, [facility] [place] [facility] [address] [id number] [place] [address] Nov, [facility] [place] [facility] [address] [id number] [place] [address] Nov, [facility] [place] [facility] [address] [id number] [place] [address] Nov, [facility] [place] [facility] [address] [id number] [place] [address] Nov, [facility] [place] [facility] [address] [id number] [place] [address] Oct, [facility] [place] [facility] [address] [id number] [place] [address] Oct, [facility] [place] [facility] [address] [id number] [place] [address] Oct, [facility] [place] [facility] [address] [id number] [place] [address] Oct, [facility] [place] [facility] [address] [id number] [place] [address] Oct, [facility] [place] [facility] [address] [id number] [place] [address] Oct, [facility] [place] [facility] [address] [id number] [place] [address] Oct, [facility] [place] [facility] [address] [id number] [place] [address] Oct, [facility] [place] [facility] [address] [id number] [place] [address] Oct, [facility] [place] [facility] [address] [id number] [place] [address] Oct, [facility] [place] [facility] [address] [id number] [place] [address] Oct, [facility] [place] [facility] [address] [id number] [place] [address] Oct, [facility] [place] [facility] [address] [id number] [place] [address] Oct, [facility] [place] [facility] [address] [id number] [place] [address] Oct, [facility] [place] [facility] [address] [id number] [place] [address] Oct, [facility] [place] [facility] [address] [id number] [place] [address] Oct, 2013 [facility] [place] [facility] [address] [id number] [place] [address] Oct, [facility] [place] [facility] [address] [id number] [place] [address] Oct, [facility] [place] [facility] [address] [id number] [place] [address] Oct, [facility] [place] [facility] [address] [id number] [place] [address] Sep, [facility] [place] [facility] [address] [id number] [place] [address] Sep, [facility] [place] [facility] [address] [id number] [place] [address] Sep, [facility] [place] [facility] [address] [id number] [place] [address] Sep, [facility] [place] [facility] [address] [id number] [place] [address] Sep, [facility] [place] [facility] [address] [id number] [place] [address] Sep, [facility] [place] [facility] [address] [id number] [place] [address] Sep, [facility] [place] [facility] [address] [id number] [place] [address] Sep, [facility] [place] [facility] [address] [id number] [place] [address] Sep, [facility] [place] [facility] [address] [id number] [place] [address] Sep, [facility] [place] [facility] [address] [id number] [place] [address] Sep, [facility] [place] [facility] [address] [id number] [place] [address] Sep, [facility] [place] [facility] [address] [id number] [place] [address] August, [facility] [place] [facility] [address] [id number] [place] [address] August, [facility] [place] [facility] [address] [id number] [place] [address] August, [facility] [place] [facility] [address] [id number] [place] [address] August, [facility] [place] [facility] [address] [id number] [place] [address] August, [facility] [place] [facility] [address] [id number] [place] [address] August, [facility] [place] [facility] [address] [id number] [place] [address] August, [facility] [place] [facility] [address] [id number] [place] [address] August, [facility] [place] [facility] [address] [id number] [place] [address] Jul, [facility] [place] [facility] [address] [id number] [place] [address] Jul, [facility] [place] [facility] [address] [id number] [place] [address] Jul, [facility] [place] [facility] [address] [id number] [place] [address] Jul, [facility] [place] [facility] [address] [id number] [place] [address] Jun, [facility] [place] [facility] [address] [id number] [place] [address] Jun, [facility] [place] [facility] [address] [id number] [place] [address] Jun, [facility] [place] [facility] [address] [id number] [place] [address] Jun, [facility] [place] [facility] [address] [id number] [place] [address] 17 Jun, 2013 [facility] [place] [facility] [address] [id number] [place] [address] 17 Jun, 2013 [facility] [place] [facility] [address] [id number] [place] [address] 13 Jun, 2013 [facility] [place] [facility] [address] [id number] [place] [address] 13 Jun, 2013 [facility] [place] [facility] [address] [id number] [place] [address] 13 Jun, 2013 [facility] [place] [facility] [address] [id number] [place] [address] 13 Jun, 2013 [facility] [place] [facility] [address] [id number] [place] [address] 11 Jun, 2013 [facility] [place] [facility] [address] [id number] [place] [address] 11 Jun, 2013 [facility] [place] [facility] [address] [id number] [place] [address] Jun, [facility] [place] [facility] [address] [id number] [place] [address] Jun, [facility] [place] [facility] [address] [id number] [place] [address] Jun, [facility] [place] [facility] [address] [id number] [place] [address] Jun, [facility] [place] [facility] [address] [id number] [place] [address] Jun, [facility] [place] [facility] [address] [id number] [place] [address] Jun, [facility] [place] [facility] [address] [id number] [place] [address] Jun, [facility] [place] [facility] [address] [id number] [place] [address] Jun, [facility] [place] [facility] [address] [id number] [place] [address] Jun, [facility] [place] [facility] [address] [id number] [place] [address] Jun, [facility] [place] [facility] [address] [id number] [place] [address] Jun, [facility] [place] [facility] [address] [id number] [place] [address] Jun, [facility] [place] [facility] [address] [id number] [place] [address] May, [facility] [place] [facility] [address] [id number] [place] [address] May, [facility] [place] [facility] [address] [id number] [place] [address] May, [facility] [place] [facility] [address] [id number] [place] [address] May, [facility] [place] [facility] [address] [id number] [place] [address] May, [facility] [place] [facility] [address] [id number] [place] [address] May, [facility] [place] [facility] [address] [id number] [place] [address] May, [facility] [place] [facility] [address] [id number] [place] [address] May, [facility] [place] [facility] [address] [id number] [place] [address] May, [facility] [place] [facility] [address] [id number] [place] [address] Apr, [facility] [place] [facility] [address] [id number] [place] [address] Apr, [facility] [place] [facility] [address] [id number] [place] [address] Apr, [facility] [address] [id number] [place] [address] Apr, [facility] [place] [facility] [address] [id number] [place] [address] 30 Mar, 2013 [facility] [place] [facility] [address] [id number] [place] [address] 30 Mar, 2013 [facility] [place] [facility] [address] [id number] [place] [address] 16 Mar, 2013 [facility] [place] [facility] [address] [id number] [place] [address] 16 Mar, 2013 [facility] [place] [facility] [address] [id number] [place] [address] Mar, [facility] [place] [facility] [address] [id number] [place] [address] Mar, [facility] [place] [facility] [address] [id number] [place] [address] 05 Mar, 2013 [facility] [place] [facility] [address] [id number] [place] [address] 05 Mar, 2013 [facility] [place] [facility] [address] [id number] [place] [address] 14 Feb, 2013 [facility] [place] [facility] [address] [id number] [place] [address] 14 Feb, 2013 [facility] [place] [facility] [address] [id number] [place] [address] 14 Feb, 2013 [facility] [place] [facility] [address] [id number] [place] [address] 14 Feb, 2013 [facility] [place] [facility] [address] [id number] [place] [address] 13 Feb, 2013 [facility] [place] [facility] [address] [id number] [place] [address] 13 Feb, 2013 [facility] [place] [facility] [address] [id number] [place] [address] Feb, 2012 [facility] [place] [facility] [address] [id number] [place] [address] Feb, 2012 [facility] [place] [facility] [address] [id number] [place] [address] Feb, 2012 [facility] [place] [facility] [address] [id number] [place] [address] Feb, 2012 [facility] [place] [facility] [address] [id number] [place] [address] Feb, [facility] [place] [facility] [address] [id number] [place] [address] Jan, [facility] [place] [facility] [address] [id number] [place] [address] Jan, [facility] [place] [facility] [address] [id number] [place] [address] Jan, [facility] [place] [facility] [address] [id number] [place] [address] Jan, [facility] [place] [facility] [address] [id number] [place] [address] Jan, [facility] [place] [facility] [address] [id number] [place] [address] Jan, [facility] [place] [facility] [address] [id number] [place] [address] Jan, [facility] [place] [facility] [address] [id number] [place] [address] Jan, [facility] [place] [facility] [address] [id number] [place] [address] Jan, [facility] [place] [facility] [address] [id number] [place] [address] Jan, [facility] [place] [facility] [address] [id number] [place] [address] Dec, [facility] [place] [facility] [address] [id number] [place] [address] 27 Dec, 2012 [facility] [place] [facility] [address] [id number] [place] [address] 24 Dec, 2012 [facility] [place] [facility] [address] [id number] [place] [address] 19 Dec, 2012 [facility] [place] [facility] [address] [id number] [place] [address] 17 Dec, 2012 [facility] [place] [facility] [address] [id number] [place] [address] 16 Dec, 2012 [facility] [place] [facility] [address] [id number] [place] [address] 10 Dec, 2012 [facility] [place] [facility] [address] [id number] [place] [address] 27 Nov, 2012 [facility] [place] [facility] [address] [id number] [place] [address] 15 Nov, 2012 [facility] [place] [facility] [address] [id number] [place] [address] Oct, [facility] [place] [facility] [address] [id number] [place] [address] Oct, [facility] [place] [facility] [address] [id number] [place] [address] Oct, [facility] [place] [facility] [address] [id number] [place] [address] Oct, [facility] [place] [facility] [address] [id number] [place] [address] Sep, [facility] [place] [facility] [address] [id number] [place] [address] Sep, [facility] [place] [facility] [address] [id number] [place] [address] Sep, [facility] [place] [facility] [address] [id number] [place] [address] Sep, [facility] [address] [id number] [place] [address] August, [facility] [address] [id number] [place] [address] August, [facility] [address] [id number] [place] [address] August, [facility] [address] [id number] [place] [address] August, [facility] [address] [id number] [place] [address] August, [facility] [address] [id number] [place] [address] August, [facility] [address] [id number] [place] [address] Jul, [facility] [address] [id number] [place] [address] Jul, [facility] [address] [id number] [place] [address] May, [facility] [address] [id number] [place] [address] Apr, [facility] [address] [id number] [place] [address] Jan, [facility] [address] [id number] [place] [address] Jan, [facility] [place] [facility] [address] [id number] [place] [address] 29 Dec, 2011 [facility] [place] [facility] [address] [id number] [place] [address] 24 Dec, 2011 [facility] [address] [id number] [place] [address] Dec, [facility] [place] [facility] [address] [id number] [place] [address] Nov, [facility] [place] [facility] [address] [id number] [place] [address] Nov, [facility] [place] [facility] [address] [id number] [place] [address] Nov, [facility] [place] [facility] [address] [id number] [place] [address] Nov, [facility] [place] [facility] [address] [id number] [place] [address] Nov, [facility] [place] [facility] [address] [id number] [place] [address] Oct, [facility] [place] [facility] [address] [id number] [place] [address] Oct, [facility] [place] [facility] [address] [id number] [place] [address] Oct, [facility] [place] [facility] [address] [id number] [place] [address] Oct, [facility] [place] [facility] [address] [id number] [place] [address] Oct, [facility] [place] [facility] [address] [id number] [place] [address] Sep, [facility] [place] [facility] [address] [id number] [place] [address] Sep, [facility] [place] [facility] [address] [id number] [place] [address] August, [facility] [place] [facility] [address] [id number] [place] [address] August, [facility] [place] [facility] [address] [id number] [place] [address] August, [facility] [place] [facility] [address] [id number] [place] [address] 16 Aug, 2011 [facility] [id number] [address] 15 Aug, 2011 [facility] [address] [place] [address] Jul, [facility] [id number] [place] [address] Jul, [facility] [id number] [place] [address] Jul, [facility] [address] [place] [address] 27 Jun, 2011 [facility] [address] [place] [address] 23 Jun, 2011 [facility] [address] [place] [address] 16 Jun, 2011 [facility] [address] [place] [address] 14 Jun, 2011 [facility] [id number] [place] [address] Jun, [facility] [id number] [place] [address] Jun, [facility] [id number] [address] Jun, IMMUNIZATIONS No Known Immunizations SOCIAL HISTORY Never Assessed REASON FOR VISIT [facility] PLAN OF CARE VITAL SIGNS MEDICATIONS Unknown Medications RESULTS No Results PROCEDURES No Known procedures INSTRUCTIONS MEDICATIONS ADMINISTERED No Known Medications MEDICAL (GENERAL) HISTORY Type Description Date Medical History asthma Medical History headache Medical History anemia Medical History sciatica Medical History Controlled Violation [facility] 2014 Medical History "post seizure" Medical History Methamphetamine Positive UDS 2-2-19 Surgical History appendectomy 11/2013 Surgical History tubal ligation 06/2012 Surgical History section x2 Surgical History dental surgery for jock jaw 2005
--- OUTSIDE RECORDS SUMMARY | 2018-10-08 19:47 | XMS REPORT ---
Author Author Migration, Doctor Organization [facility] Address Unknown Phone Unavailable Care Team Providers Care Call Center Analyst Name Role Phone Migration, Doctor Unavailable Unavailable PROBLEMS Type Condition ICD9-CM Code ZUI07-UN Code Onset Dates Condition Status SNOMED Code Problem Affective disorder F39 Active 82825801 Problem Panic disorder F41.0 Active 806752753 Problem Anxiety state, unspecified F41.1 Active 494121420 Problem Low back pain M54.5 Active 148483762 Problem Generalized anxiety disorder F41.1 Active 09683876 Problem Chronic migraine without aura without status migrainosus, not intractable G43.709 Active 818368022 Problem Vaginal bleeding N93.9 Active 035101621 Problem Pain in right knee M25.561 Active 24243616 Problem Major depressive disorder, recurrent, moderate F33.1 Active 135758210 Problem Chondromalacia patellae, right knee M22.41 Active 07649311 Problem Panic attacks F41.0 Active 563194323 Problem Major depressive disorder, recurrent episode, moderate F33.1 Active 13019367 ALLERGIES No Information ENCOUNTERS Encounter Location Date Diagnosis [facility] [address] [address] August, [facility] [address] [place] [address] Jul, Vaginal bleeding N93.9 [facility] [id number] [place] [address] 12 May, 2018 Major depressive disorder, recurrent episode, moderate F33.1 ; Generalized anxiety disorder F41.1 and Panic attacks F41.0 [facility] [id number] [place] [address] 04 May, 2018 Sore throat J02.9 ; Acute bronchitis, unspecified organism J20.9 and Tonsillitis with exudate J03.90 [facility] [id number] [place] [address] 04 May, 2018 [place] [id number] [place] [address] Jul, Right upper quadrant pain R10.11 and Nausea R11.0 [place] [id number] [place] [address] Jul, Right upper quadrant pain R10.11 and Left foot pain M79.672 [place] [id number] [place] [address] Jul, [place] [id number] [place] [address] Jun, Chondromalacia patellae, right knee M22.41 [place] [id number] [place] [address] 17 May, 2016 [place] [id number] [place] [address] 14 May, 2016 Pain in right knee M25.561 [place] [id number] [place] [address] 08 May, 2016 Major depressive disorder, recurrent, moderate F33.1 [place] [id number] [place] [address] 06 May, 2016 Anxiety state, unspecified F41.1 ; Major depressive disorder, recurrent, moderate F33.1 and High risk medications (not anticoagulants) long-term use Z79.899 [place] [id number] [place] [address] Apr, [place] [id number] [place] [address] Apr, Low back pain M54.5 ; Pain in right knee M25.561 and Chronic migraine without aura without status migrainosus, not intractable G43.709 [place] [id number] [place] [address] Apr, Affective disorder F39 and Panic disorder F41.0 [facility] [address] [address] 14 Jul, 2014 [facility] [id number] [address] 13 Jul, 2014 [facility] [address] [address] 24 May, 2014 [facility] [id number] [place] [address], [place] [address] 24 May, 2014 [facility] [id number] [place] [address], [place] [address] 18 May, 2014 [facility] [id number] [place] [address], [place] [address] 18 May, 2014 [facility] [id number] [place] [address], [place] [address] 13 May, 2014 [facility] [id number] [address] 13 May, 2014 [facility] [id number] [place] [address], [place] [address] 10 May, 2014 [facility] [id number] [address] 10 May, 2014 [facility] [id number], [place] [address] 30 Mar, 2014 [facility] [id number] [address] Mar, [facility] [id number] [address] Mar, [facility] [id number], [place] [address] Mar, [facility] [id number] [address] Mar, [facility] [place] [facility] [address] [id number] [place] [address] Mar, [facility] [place] [facility] [address] [id number] [place] [address] Mar, [facility] [place] [facility] [address] [id number] [place] [address] Mar, [facility] [place] [facility] [address] [id number] [place] [address] Mar, [facility] [place] [facility] [address] [id number] [place] [address] Mar, [facility] [place] [facility] [address] [id number] [place] [address] Mar, [facility] [place] [facility] [address] [id number] [place] [address] Mar, [facility] [place] [facility] [address] [id number] [place] [address] Feb, [facility] [place] [facility] [address] [id number] [place] [address] Feb, [facility] [place] [facility] [address] [id number], [place] [address] Feb, [facility] [place] [facility] [address] [id number], [place] [address] Feb, [facility] [place] [facility] [address] [id number], [place] [address] Feb, [facility] [place] [facility] [address] [id number] [place] [address] Feb, [facility] [place] [facility] [address] [id number], [place] [address] Feb, [facility] [place] [facility] [address] [id number], [place] [address] Feb, [facility] [place] [facility] [address] [id number], [place] [address] Feb, [facility] [place] [facility] [address] [id number] [place] [address] Feb, [facility] [place] [facility] [address] [id number] [place] [address] Feb, [facility] [place] [facility] [address] [id number] [place] [address] Feb, [facility] [place] [facility] [address] [id number] [place] [address] Jan, [facility] [place] [facility] [address] [id number] [place] [address] Jan, [facility] [place] [facility] [address] [id number] [place] [address] Jan, [facility] [place] [facility] [address] [id number], [place] [address] Jan, [facility] [place] [facility] [address] [id number] [place] [address] Jan, [facility] [place] [facility] [address] [id number] [place] [address] Jan, [facility] [place] [facility] [address] [facility] [id number], [place] [address] Jan, [facility] [place] [facility] [address] [id number], [place] [address] Jan, [facility] [place] [facility] [address] [id number], [place] [address] Jan, [facility] [place] [facility] [address] [id number] [place] [address] Jan, [facility] [place] [facility] [address] [facility] [id number], [place] [address] Jan, [facility] [place] [facility] [address] [facility] [id number], [place] [address] Jan, [facility] [place] [facility] [address] [id number] [place] [address] Jan, [facility] [place] [facility] [address] [id number] [place] [address] Jan, [facility] [place] [facility] [address] [id number] [place] [address] Dec, [facility] [place] [facility] [address] [id number] [place] [address] Dec, [facility] [place] [facility] [address] [id number] [place] [address] Dec, [facility] [place] [facility] [address] [id number] [place] [address] Dec, [facility] [place] [facility] [address] [id number] [place] [address] Dec, [facility] [place] [facility] [address] [id number] [place] [address] Dec, [facility] [place] [facility] [address] [id number] [place] [address] Nov, [facility] [place] [facility] [address] [id number] [place] [address] Nov, [facility] [place] [facility] [address] [id number] [place] [address] Nov, [facility] [place] [facility] [address] [id number] [place] [address] Nov, [facility] [place] [facility] [address] [id number] [place] [address] Nov, [facility] [place] [facility] [address] [id number] [place] [address] Nov, [facility] [place] [facility] [address] [id number] [place] [address] Nov, [facility] [place] [facility] [address] [id number] [place] [address] Oct, [facility] [place] [facility] [address] [id number] [place] [address] Oct, [facility] [place] [facility] [address] [id number] [place] [address] Oct, [facility] [place] [facility] [address] [id number] [place] [address] Oct, [facility] [place] [facility] [address] [id number] [place] [address] Oct, [facility] [place] [facility] [address] [id number] [place] [address] Oct, [facility] [place] [facility] [address] [id number] [place] [address] Oct, [facility] [place] [facility] [address] [id number] [place] [address] Oct, [facility] [place] [facility] [address] [id number] [place] [address] Oct, [facility] [place] [facility] [address] [id number] [place] [address] Oct, [facility] [place] [facility] [address] [id number] [place] [address] Oct, [facility] [place] [facility] [address] [id number] [place] [address] Oct, [facility] [place] [facility] [address] [id number] [place] [address] Oct, [facility] [place] [facility] [address] [id number] [place] [address] Oct, [facility] [place] [facility] [address] [id number] [place] [address] Oct, [facility] [place] [facility] [address] [id number] [place] [address] Oct, 2013 [facility] [place] [facility] [address] [id number] [place] [address] Oct, [facility] [place] [facility] [address] [id number] [place] [address] Oct, [facility] [place] [facility] [address] [id number] [place] [address] Oct, [facility] [place] [facility] [address] [id number] [place] [address] Sep, [facility] [place] [facility] [address] [id number] [place] [address] Sep, [facility] [place] [facility] [address] [id number] [place] [address] Sep, [facility] [place] [facility] [address] [id number] [place] [address] Sep, [facility] [place] [facility] [address] [id number] [place] [address] Sep, [facility] [place] [facility] [address] [id number] [place] [address] Sep, [facility] [place] [facility] [address] [id number] [place] [address] Sep, [facility] [place] [facility] [address] [id number] [place] [address] Sep, [facility] [place] [facility] [address] [id number] [place] [address] Sep, [facility] [place] [facility] [address] [id number] [place] [address] Sep, [facility] [place] [facility] [address] [id number] [place] [address] Sep, [facility] [place] [facility] [address] [id number] [place] [address] Sep, [facility] [place] [facility] [address] [id number] [place] [address] August, [facility] [place] [facility] [address] [id number] [place] [address] August, [facility] [place] [facility] [address] [id number] [place] [address] August, [facility] [place] [facility] [address] [id number] [place] [address] August, [facility] [place] [facility] [address] [id number] [place] [address] August, [facility] [place] [facility] [address] [id number] [place] [address] August, [facility] [place] [facility] [address] [id number] [place] [address] August, [facility] [place] [facility] [address] [id number] [place] [address] August, [facility] [place] [facility] [address] [id number] [place] [address] Jul, [facility] [place] [facility] [address] [id number] [place] [address] Jul, [facility] [place] [facility] [address] [id number] [place] [address] Jul, [facility] [place] [facility] [address] [id number] [place] [address] Jul, [facility] [place] [facility] [address] [id number] [place] [address] Jun, [facility] [place] [facility] [address] [id number] [place] [address] Jun, [facility] [place] [facility] [address] [id number] [place] [address] Jun, [facility] [place] [facility] [address] [id number] [place] [address] Jun, [facility] [place] [facility] [address] [id number] [place] [address] 17 Jun, 2013 [facility] [place] [facility] [address] [id number] [place] [address] 17 Jun, 2013 [facility] [place] [facility] [address] [id number] [place] [address] 13 Jun, 2013 [facility] [place] [facility] [address] [id number] [place] [address] 13 Jun, 2013 [facility] [place] [facility] [address] [id number] [place] [address] 13 Jun, 2013 [facility] [place] [facility] [address] [id number] [place] [address] 13 Jun, 2013 [facility] [place] [facility] [address] [id number] [place] [address] 11 Jun, 2013 [facility] [place] [facility] [address] [id number] [place] [address] 11 Jun, 2013 [facility] [place] [facility] [address] [id number] [place] [address] Jun, [facility] [place] [facility] [address] [id number] [place] [address] Jun, [facility] [place] [facility] [address] [id number] [place] [address] Jun, [facility] [place] [facility] [address] [id number] [place] [address] Jun, [facility] [place] [facility] [address] [id number] [place] [address] Jun, [facility] [place] [facility] [address] [id number] [place] [address] Jun, [facility] [place] [facility] [address] [id number] [place] [address] Jun, [facility] [place] [facility] [address] [id number] [place] [address] Jun, [facility] [place] [facility] [address] [id number] [place] [address] Jun, [facility] [place] [facility] [address] [id number] [place] [address] Jun, [facility] [place] [facility] [address] [id number] [place] [address] Jun, [facility] [place] [facility] [address] [id number] [place] [address] Jun, [facility] [place] [facility] [address] [id number] [place] [address] May, [facility] [place] [facility] [address] [id number] [place] [address] May, [facility] [place] [facility] [address] [id number] [place] [address] May, [facility] [place] [facility] [address] [id number] [place] [address] May, [facility] [place] [facility] [address] [id number] [place] [address] May, [facility] [place] [facility] [address] [id number] [place] [address] May, [facility] [place] [facility] [address] [id number] [place] [address] May, [facility] [place] [facility] [address] [id number] [place] [address] May, [facility] [place] [facility] [address] [id number] [place] [address] May, [facility] [place] [facility] [address] [id number] [place] [address] Apr, [facility] [place] [facility] [address] [id number] [place] [address] Apr, [facility] [place] [facility] [address] [id number] [place] [address] Apr, [facility] [address] [id number] [place] [address] Apr, [facility] [place] [facility] [address] [id number] [place] [address] 30 Mar, 2013 [facility] [place] [facility] [address] [id number] [place] [address] 30 Mar, 2013 [facility] [place] [facility] [address] [id number] [place] [address] 16 Mar, 2013 [facility] [place] [facility] [address] [id number] [place] [address] 16 Mar, 2013 [facility] [place] [facility] [address] [id number] [place] [address] Mar, [facility] [place] [facility] [address] [id number] [place] [address] Mar, [facility] [place] [facility] [address] [id number] [place] [address] 05 Mar, 2013 [facility] [place] [facility] [address] [id number] [place] [address] 05 Mar, 2013 [facility] [place] [facility] [address] [id number] [place] [address] 14 Feb, 2013 [facility] [place] [facility] [address] [id number] [place] [address] 14 Feb, 2013 [facility] [place] [facility] [address] [id number] [place] [address] 14 Feb, 2013 [facility] [place] [facility] [address] [id number] [place] [address] 14 Feb, 2013 [facility] [place] [facility] [address] [id number] [place] [address] 13 Feb, 2013 [facility] [place] [facility] [address] [id number] [place] [address] 13 Feb, 2013 [facility] [place] [facility] [address] [id number] [place] [address] Feb, 2012 [facility] [place] [facility] [address] [id number] [place] [address] Feb, 2012 [facility] [place] [facility] [address] [id number] [place] [address] Feb, 2012 [facility] [place] [facility] [address] [id number] [place] [address] Feb, 2012 [facility] [place] [facility] [address] [id number] [place] [address] Feb, [facility] [place] [facility] [address] [id number] [place] [address] Jan, [facility] [place] [facility] [address] [id number] [place] [address] Jan, [facility] [place] [facility] [address] [id number] [place] [address] Jan, [facility] [place] [facility] [address] [id number] [place] [address] Jan, [facility] [place] [facility] [address] [id number] [place] [address] Jan, [facility] [place] [facility] [address] [id number] [place] [address] Jan, [facility] [place] [facility] [address] [id number] [place] [address] Jan, [facility] [place] [facility] [address] [id number] [place] [address] Jan, [facility] [place] [facility] [address] [id number] [place] [address] Jan, [facility] [place] [facility] [address] [id number] [place] [address] Jan, [facility] [place] [facility] [address] [id number] [place] [address] Dec, [facility] [place] [facility] [address] [id number] [place] [address] 27 Dec, 2012 [facility] [place] [facility] [address] [id number] [place] [address] 24 Dec, 2012 [facility] [place] [facility] [address] [id number] [place] [address] 19 Dec, 2012 [facility] [place] [facility] [address] [id number] [place] [address] 17 Dec, 2012 [facility] [place] [facility] [address] [id number] [place] [address] 16 Dec, 2012 [facility] [place] [facility] [address] [id number] [place] [address] 10 Dec, 2012 [facility] [place] [facility] [address] [id number] [place] [address] 27 Nov, 2012 [facility] [place] [facility] [address] [id number] [place] [address] 15 Nov, 2012 [facility] [place] [facility] [address] [id number] [place] [address] Oct, [facility] [place] [facility] [address] [id number] [place] [address] Oct, [facility] [place] [facility] [address] [id number] [place] [address] Oct, [facility] [place] [facility] [address] [id number] [place] [address] Oct, [facility] [place] [facility] [address] [id number] [place] [address] Sep, [facility] [place] [facility] [address] [id number] [place] [address] Sep, [facility] [place] [facility] [address] [id number] [place] [address] Sep, [facility] [place] [facility] [address] [id number] [place] [address] Sep, [facility] [address] [id number] [place] [address] August, [facility] [address] [id number] [place] [address] August, [facility] [address] [id number] [place] [address] August, [facility] [address] [id number] [place] [address] August, [facility] [address] [id number] [place] [address] August, [facility] [address] [id number] [place] [address] August, [facility] [address] [id number] [place] [address] Jul, [facility] [address] [id number] [place] [address] Jul, [facility] [address] [id number] [place] [address] May, [facility] [address] [id number] [place] [address] Apr, [facility] [address] [id number] [place] [address] Jan, [facility] [address] [id number] [place] [address] Jan, [facility] [place] [facility] [address] [id number] [place] [address] 29 Dec, 2011 [facility] [place] [facility] [address] [id number] [place] [address] 24 Dec, 2011 [facility] [address] [id number] [place] [address] Dec, [facility] [place] [facility] [address] [id number] [place] [address] Nov, [facility] [place] [facility] [address] [id number] [place] [address] Nov, [facility] [place] [facility] [address] [id number] [place] [address] Nov, [facility] [place] [facility] [address] [id number] [place] [address] Nov, [facility] [place] [facility] [address] [id number] [place] [address] Nov, [facility] [place] [facility] [address] [id number] [place] [address] Oct, [facility] [place] [facility] [address] [id number] [place] [address] Oct, [facility] [place] [facility] [address] [id number] [place] [address] Oct, [facility] [place] [facility] [address] [id number] [place] [address] Oct, [facility] [place] [facility] [address] [id number] [place] [address] Oct, [facility] [place] [facility] [address] [id number] [place] [address] Sep, [facility] [place] [facility] [address] [id number] [place] [address] Sep, [facility] [place] [facility] [address] [id number] [place] [address] August, [facility] [place] [facility] [address] [id number] [place] [address] August, [facility] [place] [facility] [address] [id number] [place] [address] August, [facility] [place] [facility] [address] [id number] [place] [address] 16 Aug, 2011 [facility] [address] [id number] [address] 15 Aug, 2011 [facility] [id number] [place] [address] Jul, [facility] [id number] [address] Jul, [facility] [id number] [address] Jul, [facility] [id number] [address] 27 Jun, 2011 [facility] [id number] [place] [address] 23 Jun, 2011 [facility] [id number] [address] 16 Jun, 2011 [facility] [id number] [address] 14 Jun, 2011 [facility] [id number], [place] [address] Jun, [facility] [id number] [place] [address] Jun, [facility] [id number], [place] [address] Jun, IMMUNIZATIONS No Known Immunizations SOCIAL HISTORY Never Assessed REASON FOR VISIT [facility] PLAN OF CARE VITAL SIGNS MEDICATIONS Unknown Medications RESULTS No Results PROCEDURES No Known procedures INSTRUCTIONS MEDICATIONS ADMINISTERED No Known Medications MEDICAL (GENERAL) HISTORY Type Description Date Medical History asthma Medical History headache Medical History anemia Medical History sciatica Medical History Controlled Violation [facility] 2014 Medical History "post seizure" Medical History Methamphetamine Positive UDS 2-2-19 Surgical History appendectomy 11/2013 Surgical History tubal ligation 06/2012 Surgical History section x2 Surgical History dental surgery for jock jaw 2005
--- OUTSIDE RECORDS SUMMARY | 2018-10-08 19:48 | XMS REPORT ---
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 Name Role Phone Migration, Doctor Unavailable Unavailable PROBLEMS Type Condition ICD9-CM Code MRA71-YB Code Onset Dates Condition Status SNOMED Code Problem Affective disorder F39 Active 84394905 Problem Panic disorder F41.0 Active 042875452 Problem Anxiety state, unspecified F41.1 Active 609908883 Problem Low back pain M54.5 Active 982054812 Problem Generalized anxiety disorder F41.1 Active 69398060 Problem Chronic migraine without aura without status migrainosus, not intractable G43.709 Active 240840419 Problem Vaginal bleeding N93.9 Active 405777706 Problem Pain in right knee M25.561 Active 06560347 Problem Major depressive disorder, recurrent, moderate F33.1 Active 315613693 Problem Chondromalacia patellae, right knee M22.41 Active 84469536 Problem Panic attacks F41.0 Active 674153906 Problem Major depressive disorder, recurrent episode, moderate F33.1 Active 50207436 ALLERGIES No Information ENCOUNTERS Encounter Location Date Diagnosis [facility] [address] [address] August, [facility] [address] [place] [address] Jul, Vaginal bleeding N93.9 [facility] [id number] [place] [address] 12 May, 2018 Major depressive disorder, recurrent episode, moderate F33.1 ; Generalized anxiety disorder F41.1 and Panic attacks F41.[address] [facility] [id number] [place] [address] 04 May, 2018 Sore throat J02.9 ; Acute bronchitis, unspecified organism J20.9 and Tonsillitis with exudate J03.90 [facility] [id number] [place] [address] 04 May, 2018 [place] [id number] [place] [address] Jul, Right upper quadrant pain R10.11 and Nausea R11.0 [place] [id number] [place] [address] Jul, Right upper quadrant pain R10.11 and Left foot pain M79.672 [place] [id number] [place] [address] Jul, [place] [id number] [place] [address] Jun, Chondromalacia patellae, right knee M22.41 [place] [id number] [place] [address] 17 May, 2016 [place] [id number] [place] [address] 14 May, 2016 Pain in right knee M25.561 [place] [id number] [place] [address] 08 May, 2016 Major depressive disorder, recurrent, moderate F33.1 [place] [id number] [place] [address] 06 May, 2016 Anxiety state, unspecified F41.1 ; Major depressive disorder, recurrent, moderate F33.1 and High risk medications (not anticoagulants) long-term use Z79.899 [place] [id number] [place] [address] Apr, [place] [id number] [place] [address] Apr, Low back pain M54.5 ; Pain in right knee M25.561 and Chronic migraine without aura without status migrainosus, not intractable G43.709 [place] [id number] [place] [address] Apr, Affective disorder F39 and Panic disorder F41.0 [facility] [id number] [place] [address] 14 Jul, 2014 [facility] [id number] [address] 13 Jul, 2014 [facility] [id number] [place] [address] 24 May, 2014 [facility] [id number] [place] [address], [place] [address] 24 May, 2014 [facility] [id number] [place] [address], [place] [address] 18 May, 2014 [facility] [id number] [place] [address], [place] [address] 18 May, 2014 [facility] [id number] [place] [address], [place] [address] 13 May, 2014 [facility] [id number] [address] 13 May, 2014 [facility] [id number] [place] [address], [place] [address] 10 May, 2014 [facility] [id number] [address] 10 May, 2014 [facility] [id number] [address] 30 Mar, 2014 [facility] [id number] [address] Mar, [facility] [id number] [place] [address] Mar, [facility] [id number] [address] Mar, [facility] [id number] [address] Mar, [facility] [place] [facility] [address] [id number] [place] [address] Mar, [facility] [place] [facility] [address] [id number] [place] [address] Mar, [facility] [place] [facility] [address] [id number] [place] [address] Mar, [facility] [place] [facility] [address] [id number] [place] [address] Mar, [facility] [place] [facility] [address] [id number] [place] [address] Mar, [facility] [place] [facility] [address] [id number] [place] [address] Mar, [facility] [place] [facility] [address] [id number] [place] [address] Mar, [facility] [place] [facility] [address] [id number] [place] [address] Feb, [facility] [place] [facility] [address] [id number] [place] [address] Feb, [facility] [place] [facility] [address] [id number], [place] [address] Feb, [facility] [place] [facility] [address] [id number], [place] [address] Feb, [facility] [place] [facility] [address] [id number], [place] [address] Feb, [facility] [place] [facility] [address] [id number] [place] [address] Feb, [facility] [place] [facility] [address] [id number], [place] [address] Feb, [facility] [place] [facility] [address] [id number], [place] [address] Feb, [facility] [place] [facility] [address] [id number], [place] [address] Feb, [facility] [place] [facility] [address] [id number] [place] [address] Feb, [facility] [place] [facility] [address] [id number] [place] [address] Feb, [facility] [place] [facility] [address] [id number] [place] [address] Feb, [facility] [place] [facility] [address] [id number] [place] [address] Jan, [facility] [place] [facility] [address] [id number] [place] [address] Jan, [facility] [place] [facility] [address] [id number] [place] [address] Jan, [facility] [place] [facility] [address] [id number], [place] [address] Jan, [facility] [place] [facility] [address] [id number] [place] [address] Jan, [facility] [place] [facility] [address] [id number] [place] [address] Jan, [facility] [place] [facility] [address] [facility] [id number], [place] [address] Jan, [facility] [place] [facility] [address] [id number], [place] [address] Jan, [facility] [place] [facility] [address] [id number], [place] [address] Jan, [facility] [place] [facility] [address] [id number] [place] [address] Jan, [facility] [place] [facility] [address] [facility] [id number], [place] [address] Jan, [facility] [place] [facility] [address] [facility] [id number], [place] [address] Jan, [facility] [place] [facility] [address] [id number] [place] [address] Jan, [facility] [place] [facility] [address] [id number] [place] [address] Jan, [facility] [place] [facility] [address] [id number] [place] [address] Dec, [facility] [place] [facility] [address] [id number] [place] [address] Dec, [facility] [place] [facility] [address] [id number] [place] [address] Dec, [facility] [place] [facility] [address] [id number] [place] [address] Dec, [facility] [place] [facility] [address] [id number] [place] [address] Dec, [facility] [place] [facility] [address] [id number] [place] [address] Dec, [facility] [place] [facility] [address] [id number] [place] [address] Nov, [facility] [place] [facility] [address] [id number] [place] [address] Nov, [facility] [place] [facility] [address] [id number] [place] [address] Nov, [facility] [place] [facility] [address] [id number] [place] [address] Nov, [facility] [place] [facility] [address] [id number] [place] [address] Nov, [facility] [place] [facility] [address] [id number] [place] [address] Nov, [facility] [place] [facility] [address] [id number] [place] [address] Nov, [facility] [place] [facility] [address] [id number] [place] [address] Oct, [facility] [place] [facility] [address] [id number] [place] [address] Oct, [facility] [place] [facility] [address] [id number] [place] [address] Oct, [facility] [place] [facility] [address] [id number] [place] [address] Oct, [facility] [place] [facility] [address] [id number] [place] [address] Oct, [facility] [place] [facility] [address] [id number] [place] [address] Oct, [facility] [place] [facility] [address] [id number] [place] [address] Oct, [facility] [place] [facility] [address] [id number] [place] [address] Oct, [facility] [place] [facility] [address] [id number] [place] [address] Oct, [facility] [place] [facility] [address] [id number] [place] [address] Oct, [facility] [place] [facility] [address] [id number] [place] [address] Oct, [facility] [place] [facility] [address] [id number] [place] [address] Oct, [facility] [place] [facility] [address] [id number] [place] [address] Oct, [facility] [place] [facility] [address] [id number] [place] [address] Oct, [facility] [place] [facility] [address] [id number] [place] [address] Oct, [facility] [place] [facility] [address] [id number] [place] [address] Oct, 2013 [facility] [place] [facility] [address] [id number] [place] [address] Oct, [facility] [place] [facility] [address] [id number] [place] [address] Oct, [facility] [place] [facility] [address] [id number] [place] [address] Oct, [facility] [place] [facility] [address] [id number] [place] [address] Sep, [facility] [place] [facility] [address] [id number] [place] [address] Sep, [facility] [place] [facility] [address] [id number] [place] [address] Sep, [facility] [place] [facility] [address] [id number] [place] [address] Sep, [facility] [place] [facility] [address] [id number] [place] [address] Sep, [facility] [place] [facility] [address] [id number] [place] [address] Sep, [facility] [place] [facility] [address] [id number] [place] [address] Sep, [facility] [place] [facility] [address] [id number] [place] [address] Sep, [facility] [place] [facility] [address] [id number] [place] [address] Sep, [facility] [place] [facility] [address] [id number] [place] [address] Sep, [facility] [place] [facility] [address] [id number] [place] [address] Sep, [facility] [place] [facility] [address] [id number] [place] [address] Sep, [facility] [place] [facility] [address] [id number] [place] [address] August, [facility] [place] [facility] [address] [id number] [place] [address] August, [facility] [place] [facility] [address] [id number] [place] [address] August, [facility] [place] [facility] [address] [id number] [place] [address] August, [facility] [place] [facility] [address] [id number] [place] [address] August, [facility] [place] [facility] [address] [id number] [place] [address] August, [facility] [place] [facility] [address] [id number] [place] [address] August, [facility] [place] [facility] [address] [id number] [place] [address] August, [facility] [place] [facility] [address] [id number] [place] [address] Jul, [facility] [place] [facility] [address] [id number] [place] [address] Jul, [facility] [place] [facility] [address] [id number] [place] [address] Jul, [facility] [place] [facility] [address] [id number] [place] [address] Jul, [facility] [place] [facility] [address] [id number] [place] [address] Jun, [facility] [place] [facility] [address] [id number] [place] [address] Jun, [facility] [place] [facility] [address] [id number] [place] [address] Jun, [facility] [place] [facility] [address] [id number] [place] [address] Jun, [facility] [place] [facility] [address] [id number] [place] [address] 17 Jun, 2013 [facility] [place] [facility] [address] [id number] [place] [address] 17 Jun, 2013 [facility] [place] [facility] [address] [id number] [place] [address] 13 Jun, 2013 [facility] [place] [facility] [address] [id number] [place] [address] 13 Jun, 2013 [facility] [place] [facility] [address] [id number] [place] [address] 13 Jun, 2013 [facility] [place] [facility] [address] [id number] [place] [address] 13 Jun, 2013 [facility] [place] [facility] [address] [id number] [place] [address] 11 Jun, 2013 [facility] [place] [facility] [address] [id number] [place] [address] 11 Jun, 2013 [facility] [place] [facility] [address] [id number] [place] [address] Jun, [facility] [place] [facility] [address] [id number] [place] [address] Jun, [facility] [place] [facility] [address] [id number] [place] [address] Jun, [facility] [place] [facility] [address] [id number] [place] [address] Jun, [facility] [place] [facility] [address] [id number] [place] [address] Jun, [facility] [place] [facility] [address] [id number] [place] [address] Jun, [facility] [place] [facility] [address] [id number] [place] [address] Jun, [facility] [place] [facility] [address] [id number] [place] [address] Jun, [facility] [place] [facility] [address] [id number] [place] [address] Jun, [facility] [place] [facility] [address] [id number] [place] [address] Jun, [facility] [place] [facility] [address] [id number] [place] [address] Jun, [facility] [place] [facility] [address] [id number] [place] [address] Jun, [facility] [place] [facility] [address] [id number] [place] [address] May, [facility] [place] [facility] [address] [id number] [place] [address] May, [facility] [place] [facility] [address] [id number] [place] [address] May, [facility] [place] [facility] [address] [id number] [place] [address] May, [facility] [place] [facility] [address] [id number] [place] [address] May, [facility] [place] [facility] [address] [id number] [place] [address] May, [facility] [place] [facility] [address] [id number] [place] [address] May, [facility] [place] [facility] [address] [id number] [place] [address] May, [facility] [place] [facility] [address] [id number] [place] [address] May, [facility] [place] [facility] [address] [id number] [place] [address] Apr, [facility] [place] [facility] [address] [id number] [place] [address] Apr, [facility] [place] [facility] [address] [id number] [place] [address] Apr, [facility] [address] [id number] [place] [address] Apr, [facility] [place] [facility] [address] [id number] [place] [address] 30 Mar, 2013 [facility] [place] [facility] [address] [id number] [place] [address] 30 Mar, 2013 [facility] [place] [facility] [address] [id number] [place] [address] 16 Mar, 2013 [facility] [place] [facility] [address] [id number] [place] [address] 16 Mar, 2013 [facility] [place] [facility] [address] [id number] [place] [address] Mar, [facility] [place] [facility] [address] [id number] [place] [address] Mar, [facility] [place] [facility] [address] [id number] [place] [address] 05 Mar, 2013 [facility] [place] [facility] [address] [id number] [place] [address] 05 Mar, 2013 [facility] [place] [facility] [address] [id number] [place] [address] 14 Feb, 2013 [facility] [place] [facility] [address] [id number] [place] [address] 14 Feb, 2013 [facility] [place] [facility] [address] [id number] [place] [address] 14 Feb, 2013 [facility] [place] [facility] [address] [id number] [place] [address] 14 Feb, 2013 [facility] [place] [facility] [address] [id number] [place] [address] 13 Feb, 2013 [facility] [place] [facility] [address] [id number] [place] [address] 13 Feb, 2013 [facility] [place] [facility] [address] [id number] [place] [address] Feb, 2012 [facility] [place] [facility] [address] [id number] [place] [address] Feb, 2012 [facility] [place] [facility] [address] [id number] [place] [address] Feb, 2012 [facility] [place] [facility] [address] [id number] [place] [address] Feb, 2012 [facility] [place] [facility] [address] [id number] [place] [address] Feb, [facility] [place] [facility] [address] [id number] [place] [address] Jan, [facility] [place] [facility] [address] [id number] [place] [address] Jan, [facility] [place] [facility] [address] [id number] [place] [address] Jan, [facility] [place] [facility] [address] [id number] [place] [address] Jan, [facility] [place] [facility] [address] [id number] [place] [address] Jan, [facility] [place] [facility] [address] [id number] [place] [address] Jan, [facility] [place] [facility] [address] [id number] [place] [address] Jan, [facility] [place] [facility] [address] [id number] [place] [address] Jan, [facility] [place] [facility] [address] [id number] [place] [address] Jan, [facility] [place] [facility] [address] [id number] [place] [address] Jan, [facility] [place] [facility] [address] [id number] [place] [address] Dec, [facility] [place] [facility] [address] [id number] [place] [address] 27 Dec, 2012 [facility] [place] [facility] [address] [id number] [place] [address] 24 Dec, 2012 [facility] [place] [facility] [address] [id number] [place] [address] 19 Dec, 2012 [facility] [place] [facility] [address] [id number] [place] [address] 17 Dec, 2012 [facility] [place] [facility] [address] [id number] [place] [address] 16 Dec, 2012 [facility] [place] [facility] [address] [id number] [place] [address] 10 Dec, 2012 [facility] [place] [facility] [address] [id number] [place] [address] 27 Nov, 2012 [facility] [place] [facility] [address] [id number] [place] [address] 15 Nov, 2012 [facility] [place] [facility] [address] [id number] [place] [address] Oct, [facility] [place] [facility] [address] [id number] [place] [address] Oct, [facility] [place] [facility] [address] [id number] [place] [address] Oct, [facility] [place] [facility] [address] [id number] [place] [address] Oct, [facility] [place] [facility] [address] [id number] [place] [address] Sep, [facility] [place] [facility] [address] [id number] [place] [address] Sep, [facility] [place] [facility] [address] [id number] [place] [address] Sep, [facility] [place] [facility] [address] [id number] [place] [address] Sep, [facility] [address] [id number] [place] [address] August, [facility] [address] [id number] [place] [address] August, [facility] [address] [id number] [place] [address] August, [facility] [address] [id number] [place] [address] August, [facility] [address] [id number] [place] [address] August, [facility] [address] [id number] [place] [address] August, [facility] [address] [id number] [place] [address] Jul, [facility] [address] [id number] [place] [address] Jul, [facility] [address] [id number] [place] [address] May, [facility] [address] [id number] [place] [address] Apr, [facility] [address] [id number] [place] [address] Jan, [facility] [address] [id number] [place] [address] Jan, [facility] [place] [facility] [address] [id number] [place] [address] 29 Dec, 2011 [facility] [place] [facility] [address] [id number] [place] [address] 24 Dec, 2011 [facility] [address] [id number] [place] [address] Dec, [facility] [place] [facility] [address] [id number] [place] [address] Nov, [facility] [place] [facility] [address] [id number] [place] [address] Nov, [facility] [place] [facility] [address] [id number] [place] [address] Nov, [facility] [place] [facility] [address] [id number] [place] [address] Nov, [facility] [place] [facility] [address] [id number] [place] [address] Nov, [facility] [place] [facility] [address] [id number] [place] [address] Oct, [facility] [place] [facility] [address] [id number] [place] [address] Oct, [facility] [place] [facility] [address] [id number] [place] [address] Oct, [facility] [place] [facility] [address] [id number] [place] [address] Oct, [facility] [place] [facility] [address] [id number] [place] [address] Oct, [facility] [place] [facility] [address] [id number] [place] [address] Sep, [facility] [place] [facility] [address] [id number] [place] [address] Sep, [facility] [place] [facility] [address] [id number] [place] [address] August, [facility] [place] [facility] [address] [id number] [place] [address] August, [facility] [place] [facility] [address] [id number] [place] [address] August, [facility] [place] [facility] [address] [id number] [place] [address] 16 Aug, 2011 [facility] [address] [id number] [address] 15 Aug, 2011 [facility] [id number] [address] Jul, [facility] [id number] [address] Jul, [facility] [id number] [address] Jul, [facility] [id number] [address] 27 Jun, 2011 [facility] [id number] [address] 23 Jun, 2011 [facility] [facility] [id number] [address] 16 Jun, 2011 [facility] [id number] [address] 14 Jun, 2011 [facility] [id number] [address] Jun, [facility] [id number] [address] Jun, [facility] [id number] [address] Jun, IMMUNIZATIONS No Known Immunizations SOCIAL HISTORY Never Assessed REASON FOR VISIT [facility] PLAN OF CARE VITAL SIGNS MEDICATIONS Unknown Medications RESULTS No Results PROCEDURES No Known procedures INSTRUCTIONS MEDICATIONS ADMINISTERED No Known Medications MEDICAL (GENERAL) HISTORY Type Description Date Medical History asthma Medical History headache Medical History anemia Medical History sciatica Medical History Controlled Violation [facility] 2014 Medical History "post seizure" Medical History Methamphetamine Positive UDS 2-2-19 Surgical History appendectomy 11/2013 Surgical History tubal ligation 06/2012 Surgical History section x2 Surgical History dental surgery for jock jaw 2005
--- OUTSIDE RECORDS SUMMARY | 2018-10-08 19:49 | XMS REPORT ---
Author Author Migration, Doctor Organization [facility] Address Unknown Phone Unavailable Care Team Providers Care Sole Leveler Machine Name Role Phone Migration, Doctor Unavailable Unavailable PROBLEMS Type Condition ICD9-CM Code BIP11-HR Code Onset Dates Condition Status SNOMED Code Problem Affective disorder F39 Active 48899882 Problem Panic disorder F41.0 Active 853200517 Problem Anxiety state, unspecified F41.1 Active 049710988 Problem Low back pain M54.5 Active 187758324 Problem Generalized anxiety disorder F41.1 Active 54317021 Problem Chronic migraine without aura without status migrainosus, not intractable G43.709 Active 996542467 Problem Vaginal bleeding N93.9 Active 406253749 Problem Pain in right knee M25.561 Active 87290239 Problem Major depressive disorder, recurrent, moderate F33.1 Active 918420598 Problem Chondromalacia patellae, right knee M22.41 Active 19154754 Problem Panic attacks F41.0 Active 258679498 Problem Major depressive disorder, recurrent episode, moderate F33.1 Active 22914431 ALLERGIES No Information ENCOUNTERS Encounter Location Date Diagnosis [facility] [address] [address] August, [facility] [address] [place] [address] Jul, Vaginal bleeding N93.9 [facility] [id number] [place] [address] 12 May, 2018 Major depressive disorder, recurrent episode, moderate F33.1 ; Generalized anxiety disorder F41.1 and Panic attacks F41.0 [facility] [id number] [place] [address] 04 May, 2018 Sore throat J02.9 ; Acute bronchitis, unspecified organism J20.9 and Tonsillitis with exudate J03.90 [facility] [id number] [place] [address] 04 May, 2018 [facility] [id number] [place] [address] Jul, Right upper quadrant pain R10.11 and Nausea R11.0 [facility] [id number] [place] [address] Jul, Right upper quadrant pain R10.11 and Left foot pain M79.672 [facility] [id number] [place] [address] Jul, [facility] [facility] [id number] [place] [address] Jun, Chondromalacia patellae, right knee M22.41 [facility] [id number] [place] [address] 17 May, 2016 [place] [id number] [place] [address] 14 May, 2016 Pain in right knee M25.561 [facility] [id number] [place] [address] 08 May, 2016 Major depressive disorder, recurrent, moderate F33.1 [facility] [id number] [place] [address] 06 May, 2016 Anxiety state, unspecified F41.1 ; Major depressive disorder, recurrent, moderate F33.1 and High risk medications (not anticoagulants) long-term use Z79.899 [place] [id number] [place] [address] Apr, [place] [id number] [place] [address] Apr, Low back pain M54.5 ; Pain in right knee M25.561 and Chronic migraine without aura without status migrainosus, not intractable G43.709 [facility] [id number] [place] [address] Apr, Affective disorder F39 and Panic disorder F41.0 [facility] [id number] [address] 14 Jul, 2014 [facility] [id number] [address] 13 Jul, 2014 [facility] [id number] [address] 24 May, 2014 [facility] [id number] [place] [address], [place] [address] 24 May, 2014 [facility] [id number] [place] [address], [place] [address] 18 May, 2014 [facility] [id number] [place] [address], [place] [address] 18 May, 2014 [facility] [id number] [place] [address], [place] [address] 13 May, 2014 [facility] [id number] [address] 13 May, 2014 [facility] [id number] [place] [address], [place] [address] 10 May, 2014 [facility] [id number] [address] 10 May, 2014 [facility] [id number] [address] 30 Mar, 2014 [facility] [id number] [address] Mar, [facility] [id number] [address] Mar, [facility] [id number] [address] Mar, [facility] [id number] [address] Mar, [facility] [place] [facility] [address] [id number] [place] [address] Mar, [facility] [place] [facility] [address] [id number] [place] [address] Mar, [facility] [place] [facility] [address] [id number] [place] [address] Mar, [facility] [place] [facility] [address] [id number] [place] [address] Mar, [facility] [place] [facility] [address] [id number] [place] [address] Mar, [facility] [place] [facility] [address] [id number] [place] [address] Mar, [facility] [place] [facility] [address] [id number] [place] [address] Mar, [facility] [place] [facility] [address] [id number] [place] [address] Feb, [facility] [place] [facility] [address] [id number] [place] [address] Feb, [facility] [place] [facility] [address] [id number], [place] [address] Feb, [facility] [place] [facility] [address] [id number], [place] [address] Feb, [facility] [place] [facility] [address] [id number], [place] [address] Feb, [facility] [place] [facility] [address] [id number] [place] [address] Feb, [facility] [place] [facility] [address] [id number], [place] [address] Feb, [facility] [place] [facility] [address] [id number], [place] [address] Feb, [facility] [place] [facility] [address] [id number], [place] [address] Feb, [facility] [place] [facility] [address] [id number] [place] [address] Feb, [facility] [place] [facility] [address] [id number] [place] [address] Feb, [facility] [place] [facility] [address] [id number] [place] [address] Feb, [facility] [place] [facility] [address] [id number] [place] [address] Jan, [facility] [place] [facility] [address] [id number] [place] [address] Jan, [facility] [place] [facility] [address] [id number] [place] [address] Jan, [facility] [place] [facility] [address] [id number], [place] [address] Jan, [facility] [place] [facility] [address] [id number] [place] [address] Jan, [facility] [place] [facility] [address] [id number] [place] [address] Jan, [facility] [place] [facility] [address] [facility] [id number], [place] [address] Jan, [facility] [place] [facility] [address] [id number], [place] [address] Jan, [facility] [place] [facility] [address] [id number], [place] [address] Jan, [facility] [place] [facility] [address] [id number] [place] [address] Jan, [facility] [place] [facility] [address] [facility] [id number], [place] [address] Jan, [facility] [place] [facility] [address] [facility] [id number], [place] [address] Jan, [facility] [place] [facility] [address] [id number] [place] [address] Jan, [facility] [place] [facility] [address] [id number] [place] [address] Jan, [facility] [place] [facility] [address] [id number] [place] [address] Dec, [facility] [place] [facility] [address] [id number] [place] [address] Dec, [facility] [place] [facility] [address] [id number] [place] [address] Dec, [facility] [place] [facility] [address] [id number] [place] [address] Dec, [facility] [place] [facility] [address] [id number] [place] [address] Dec, [facility] [place] [facility] [address] [id number] [place] [address] Dec, [facility] [place] [facility] [address] [id number] [place] [address] Nov, [facility] [place] [facility] [address] [id number] [place] [address] Nov, [facility] [place] [facility] [address] [id number] [place] [address] Nov, [facility] [place] [facility] [address] [id number] [place] [address] Nov, [facility] [place] [facility] [address] [id number] [place] [address] Nov, [facility] [place] [facility] [address] [id number] [place] [address] Nov, [facility] [place] [facility] [address] [id number] [place] [address] Nov, [facility] [place] [facility] [address] [id number] [place] [address] Oct, [facility] [place] [facility] [address] [id number] [place] [address] Oct, [facility] [place] [facility] [address] [id number] [place] [address] Oct, [facility] [place] [facility] [address] [id number] [place] [address] Oct, [facility] [place] [facility] [address] [id number] [place] [address] Oct, [facility] [place] [facility] [address] [id number] [place] [address] Oct, [facility] [place] [facility] [address] [id number] [place] [address] Oct, [facility] [place] [facility] [address] [id number] [place] [address] Oct, [facility] [place] [facility] [address] [id number] [place] [address] Oct, [facility] [place] [facility] [address] [id number] [place] [address] Oct, [facility] [place] [facility] [address] [id number] [place] [address] Oct, [facility] [place] [facility] [address] [id number] [place] [address] Oct, [facility] [place] [facility] [address] [id number] [place] [address] Oct, [facility] [place] [facility] [address] [id number] [place] [address] Oct, [facility] [place] [facility] [address] [id number] [place] [address] Oct, [facility] [place] [facility] [address] [id number] [place] [address] Oct, 2013 [facility] [place] [facility] [address] [id number] [place] [address] Oct, [facility] [place] [facility] [address] [id number] [place] [address] Oct, [facility] [place] [facility] [address] [id number] [place] [address] Oct, [facility] [place] [facility] [address] [id number] [place] [address] Sep, [facility] [place] [facility] [address] [id number] [place] [address] Sep, [facility] [place] [facility] [address] [id number] [place] [address] Sep, [facility] [place] [facility] [address] [id number] [place] [address] Sep, [facility] [place] [facility] [address] [id number] [place] [address] Sep, [facility] [place] [facility] [address] [id number] [place] [address] Sep, [facility] [place] [facility] [address] [id number] [place] [address] Sep, [facility] [place] [facility] [address] [id number] [place] [address] Sep, [facility] [place] [facility] [address] [id number] [place] [address] Sep, [facility] [place] [facility] [address] [id number] [place] [address] Sep, [facility] [place] [facility] [address] [id number] [place] [address] Sep, [facility] [place] [facility] [address] [id number] [place] [address] Sep, [facility] [place] [facility] [address] [id number] [place] [address] August, [facility] [place] [facility] [address] [id number] [place] [address] August, [facility] [place] [facility] [address] [id number] [place] [address] August, [facility] [place] [facility] [address] [id number] [place] [address] August, [facility] [place] [facility] [address] [id number] [place] [address] August, [facility] [place] [facility] [address] [id number] [place] [address] August, [facility] [place] [facility] [address] [id number] [place] [address] August, [facility] [place] [facility] [address] [id number] [place] [address] August, [facility] [place] [facility] [address] [id number] [place] [address] Jul, [facility] [place] [facility] [address] [id number] [place] [address] Jul, [facility] [place] [facility] [address] [id number] [place] [address] Jul, [facility] [place] [facility] [address] [id number] [place] [address] Jul, [facility] [place] [facility] [address] [id number] [place] [address] Jun, [facility] [place] [facility] [address] [id number] [place] [address] Jun, [facility] [place] [facility] [address] [id number] [place] [address] Jun, [facility] [place] [facility] [address] [id number] [place] [address] Jun, [facility] [place] [facility] [address] [id number] [place] [address] 17 Jun, 2013 [facility] [place] [facility] [address] [id number] [place] [address] 17 Jun, 2013 [facility] [place] [facility] [address] [id number] [place] [address] 13 Jun, 2013 [facility] [place] [facility] [address] [id number] [place] [address] 13 Jun, 2013 [facility] [place] [facility] [address] [id number] [place] [address] 13 Jun, 2013 [facility] [place] [facility] [address] [id number] [place] [address] 13 Jun, 2013 [facility] [place] [facility] [address] [id number] [place] [address] 11 Jun, 2013 [facility] [place] [facility] [address] [id number] [place] [address] 11 Jun, 2013 [facility] [place] [facility] [address] [id number] [place] [address] Jun, [facility] [place] [facility] [address] [id number] [place] [address] Jun, [facility] [place] [facility] [address] [id number] [place] [address] Jun, [facility] [place] [facility] [address] [id number] [place] [address] Jun, [facility] [place] [facility] [address] [id number] [place] [address] Jun, [facility] [place] [facility] [address] [id number] [place] [address] Jun, [facility] [place] [facility] [address] [id number] [place] [address] Jun, [facility] [place] [facility] [address] [id number] [place] [address] Jun, [facility] [place] [facility] [address] [id number] [place] [address] Jun, [facility] [place] [facility] [address] [id number] [place] [address] Jun, [facility] [place] [facility] [address] [id number] [place] [address] Jun, [facility] [place] [facility] [address] [id number] [place] [address] Jun, [facility] [place] [facility] [address] [id number] [place] [address] May, [facility] [place] [facility] [address] [id number] [place] [address] May, [facility] [place] [facility] [address] [id number] [place] [address] May, [facility] [place] [facility] [address] [id number] [place] [address] May, [facility] [place] [facility] [address] [id number] [place] [address] May, [facility] [place] [facility] [address] [id number] [place] [address] May, [facility] [place] [facility] [address] [id number] [place] [address] May, [facility] [place] [facility] [address] [id number] [place] [address] May, [facility] [place] [facility] [address] [id number] [place] [address] May, [facility] [place] [facility] [address] [id number] [place] [address] Apr, [facility] [place] [facility] [address] [id number] [place] [address] Apr, [facility] [place] [facility] [address] [id number] [place] [address] Apr, [facility] [place] [facility] [address] [id number] [place] [address] Apr, [facility] [place] [facility] [address] [id number] [place] [address] 30 Mar, 2013 [facility] [place] [facility] [address] [id number] [place] [address] 30 Mar, 2013 [facility] [place] [facility] [address] [id number] [place] [address] 16 Mar, 2013 [facility] [place] [facility] [address] [id number] [place] [address] 16 Mar, 2013 [facility] [place] [facility] [address] [id number] [place] [address] Mar, [facility] [place] [facility] [address] [id number] [place] [address] Mar, [facility] [place] [facility] [address] [id number] [place] [address] 05 Mar, 2013 [facility] [place] [facility] [address] [id number] [place] [address] 05 Mar, 2013 [facility] [place] [facility] [address] [id number] [place] [address] 14 Feb, 2013 [facility] [place] [facility] [address] [id number] [place] [address] 14 Feb, 2013 [facility] [place] [facility] [address] [id number] [place] [address] 14 Feb, 2013 [facility] [place] [facility] [address] [id number] [place] [address] 14 Feb, 2013 [facility] [place] [facility] [address] [id number] [place] [address] 13 Feb, 2013 [facility] [place] [facility] [address] [id number] [place] [address] 13 Feb, 2013 [facility] [place] [facility] [address] [id number] [place] [address] Feb, 2012 [facility] [place] [facility] [address] [id number] [place] [address] Feb, 2012 [facility] [place] [facility] [address] [id number] [place] [address] Feb, 2012 [facility] [place] [facility] [address] [id number] [place] [address] Feb, 2012 [facility] [place] [facility] [address] [id number] [place] [address] Feb, [facility] [place] [facility] [address] [id number] [place] [address] Jan, [facility] [place] [facility] [address] [id number] [place] [address] Jan, [facility] [place] [facility] [address] [id number] [place] [address] Jan, [facility] [place] [facility] [address] [id number] [place] [address] Jan, [facility] [place] [facility] [address] [id number] [place] [address] Jan, [facility] [place] [facility] [address] [id number] [place] [address] Jan, [facility] [place] [facility] [address] [id number] [place] [address] Jan, [facility] [place] [facility] [address] [id number] [place] [address] Jan, [facility] [place] [facility] [address] [id number] [place] [address] Jan, [facility] [place] [facility] [address] [id number] [place] [address] Jan, [facility] [place] [facility] [address] [id number] [place] [address] Dec, [facility] [place] [facility] [address] [id number] [place] [address] 27 Dec, 2012 [facility] [place] [facility] [address] [id number] [place] [address] 24 Dec, 2012 [facility] [place] [facility] [address] [id number] [place] [address] 19 Dec, 2012 [facility] [place] [facility] [address] [id number] [place] [address] 17 Dec, 2012 [facility] [place] [facility] [address] [id number] [place] [address] 16 Dec, 2012 [facility] [place] [facility] [address] [id number] [place] [address] 10 Dec, 2012 [facility] [place] [facility] [address] [id number] [place] [address] 27 Nov, 2012 [facility] [place] [facility] [address] [id number] [place] [address] 15 Nov, 2012 [facility] [place] [facility] [address] [id number] [place] [address] Oct, [facility] [place] [facility] [address] [id number] [place] [address] Oct, [facility] [place] [facility] [address] [id number] [place] [address] Oct, [facility] [place] [facility] [address] [id number] [place] [address] Oct, [facility] [place] [facility] [address] [id number] [place] [address] Sep, [facility] [place] [facility] [address] [id number] [place] [address] Sep, [facility] [place] [facility] [address] [id number] [place] [address] Sep, [facility] [place] [facility] [address] [id number] [place] [address] Sep, [facility] [address] [id number] [place] [address] August, [facility] [place] [facility] [address] [id number] [place] [address] August, [facility] [place] [facility] [address] [id number] [place] [address] August, [facility] [place] [address] [id number] [place] [address] August, [facility] [place] [facility] [address] [id number] [place] [address] August, [facility] [place] [facility] [address] [id number] [place] [address] August, [facility] [address] [id number] [place] [address] Jul, [facility] [place] [facility] [address] [id number] [place] [address] Jul, [facility] [address] [id number] [place] [address] May, [facility] [address] [id number] [place] [address] Apr, [facility] [address] [id number] [place] [address] Jan, [facility] [place] [address] [id number] [place] [address] Jan, [facility] [place] [facility] [address] [id number] [place] [address] 29 Dec, 2011 [facility] [place] [facility] [address] [id number] [place] [address] 24 Dec, 2011 [facility] [place] [address] [id number] [place] [address] Dec, [facility] [place] [facility] [address] [id number] [place] [address] Nov, [facility] [place] [facility] [address] [id number] [place] [address] Nov, [facility] [place] [facility] [address] [id number] [place] [address] Nov, [facility] [place] [facility] [address] [id number] [place] [address] Nov, [facility] [place] [facility] [address] [id number] [place] [address] Nov, [facility] [place] [facility] [address] [id number] [place] [address] Oct, [facility] [place] [facility] [address] [id number] [place] [address] Oct, [facility] [place] [facility] [address] [id number] [place] [address] Oct, [facility] [place] [facility] [address] [id number] [place] [address] Oct, [facility] [place] [facility] [address] [id number] [place] [address] Oct, [facility] [place] [facility] [address] [id number] [place] [address] Sep, [facility] [place] [facility] [address] [id number] [place] [address] Sep, [facility] [place] [facility] [address] [id number] [place] [address] August, [facility] [place] [facility] [address] [id number] [place] [address] August, [facility] [place] [facility] [address] [id number] [place] [address] August, [facility] [place] [facility] [address] [id number] [place] [address] 16 Aug, 2011 [facility] [address] [id number] [address] 15 Aug, 2011 [facility] [address] [id number] [address] Jul, [facility] ([facility] [id number] [address] Jul, [facility] ([facility] [id number] [address] Jul, [facility] ([facility] [id number] [address] 27 Jun, 2011 [facility] ([facility] [id number] [address] 23 Jun, 2011 [facility] ([facility] [id number] [address] 16 Jun, 2011 [facility] ([facility] [id number] [address] 14 Jun, 2011 [facility] ([facility] [id number] [address] Jun, [facility] ([facility] [id number] [address] Jun, [facility] ([facility] [id number] [address] Jun, IMMUNIZATIONS No Known Immunizations SOCIAL HISTORY Never Assessed REASON FOR VISIT [facility] PLAN OF CARE VITAL SIGNS MEDICATIONS Unknown [...]
--- OUTSIDE RECORDS SUMMARY | 2018-10-08 19:53 | XMS REPORT | Continuity of Care Document ---
Author Organization Unknown Address Unknown Allergies Active Description Code Type Severity Reaction Onset Reported/Identified Relationship to Patient Clinical Status Yes No Known Drug Allergies [id number] Drug Allergy Unknown N/A 07/27/2010 Yes doxepin 50 mg capsule Drug Allergy N/A N/A 05/11/2013 Yes Abilify 5 mg tablet Drug Allergy N/A N/A 06/10/2013 Medications There is no data. Problems Date Dx Coded Attending Type Code Diagnosis Diagnosed By 07/27/2010 Ot 640.03 07/27/2010 Ot 651.03 07/27/2010 Ot V91.00 06/17/2011 BALBINA DELACRUZ APRN 285.9 ANEMIA 06/17/2011 BALBINA DELACRUZ APRN 780.79 FATIGUE 06/17/2011 BALBINA DELACRUZ APRN 783.1 recent weight gain (___ lbs) [reported] 06/17/2011 BALBINA DELACRUZ APRN 784.0 headache 06/17/2011 285.9 ANEMIA 06/17/2011 780.79 [...] Bal APRN A 285.9 ANEMIA 06/17/2011 BETY RIVERANKERIJOAO A 780.79 FATIGUE 06/17/2011 BETY RIVERANKERIJOAO A 783.1 recent weight gain (___ lbs) [reported] 06/17/2011 BETYJOAO Bal APRN A 784.0 headache 06/17/2011 BRIANDA LOUIS APRN 285.9 ANEMIA 06/17/2011 BRIANDA LOUIS APRN 780.79 FATIGUE 06/17/2011 BRIANDA LOUIS APRN 783.1 recent weight gain (___ lbs) [reported] 06/17/2011 BRIANDA LOUIS APRN 784.0 headache 06/17/2011 JESSICA CABRERA PHD 285.9 ANEMIA 06/17/2011 JESSICA CABRERA PHD 780.79 FATIGUE 06/17/2011 RICK ALBERTO, JESSICA Sabillon 783.1 recent weight gain (___ lbs) [reported] 06/17/2011 JESSICA CABRERA PHD 784.0 headache 06/17/2011 JESSICA CABRERA PHD 285.9 ANEMIA 06/17/2011 RICK ALBERTO, JESSICA Sabillon 780.79 FATIGUE 06/17/2011 RICK PHD, JESSICA A 783.1 recent weight gain (___ lbs) [reported] 06/17/2011 JESSICA CABRERA PHD 784.0 headache 06/17/2011 JESSICA CABRERA PHD 285.9 ANEMIA 06/17/2011 RICK ALBERTO, JESSICA Sabillon 780.79 FATIGUE 06/17/2011 JESSICA CABRERA PHD 783.1 [...] PHD 780.79 FATIGUE 06/17/2011 JESSICA CABRERA PHD A 783.1 recent weight gain (___ lbs) [...] BALTA PEDRAZA MD 784.0 headache 06/17/2011 [facility] ACTIVITIES SPECIALIST, MISA 285.9 ANEMIA 06/17/2011 VA ACTIVITIES SPECIALIST, MISA 780.79 FATIGUE 06/17/2011 VA ACTIVITIES SPECIALIST, MISA 783.1 recent weight gain (___ lbs) [reported] 06/17/2011 VA ACTIVITIES SPECIALIST, MISA 784.0 headache 06/17/2011 VA ACTIVITIES SPECIALIST, MISA 285.9 ANEMIA 06/17/2011 VA ACTIVITIES SPECIALIST, MISA 780.79 FATIGUE 06/17/2011 VA ACTIVITIES SPECIALIST, MISA 783.1 recent weight gain (___ lbs) [reported] 06/17/2011 VA ACTIVITIES SPECIALIST, MISA 784.0 headache 06/17/2011 WHITE DDSJEREMIE 285.9 ANEMIA 06/17/2011 WHITE DDS, JEREMIE D 780.79 FATIGUE 06/17/2011 WHITE DDS, JEREMIE D 783.1 recent weight gain (___ lbs) [reported] 06/17/2011 WHITE DDS, JEREMIE D 784.0 headache 06/17/2011 VA ACTIVITIES SPECIALIST, MISA 285.9 ANEMIA 06/17/2011 VA ACTIVITIES SPECIALIST, MISA 780.79 FATIGUE 06/17/2011 VA ACTIVITIES SPECIALIST, MISA 783.1 recent weight gain (___ lbs) [reported] 06/17/2011 VA ACTIVITIES SPECIALIST, MISA 784.0 headache 06/17/2011 VA ACTIVITIES SPECIALIST, MISA 285.9 ANEMIA 06/17/2011 VA ACTIVITIES SPECIALIST, MISA 780.79 FATIGUE 06/17/2011 VA ACTIVITIES SPECIALIST, MISA 783.1 recent weight gain (___ lbs) [reported] 06/17/2011 VA ACTIVITIES SPECIALIST, MISA 784.0 headache 06/17/2011 MADL ACTIVITIES SPECIALIST, DARIAN L 285.9 ANEMIA 06/17/2011 MADL ACTIVITIES SPECIALIST, DARIAN L 780.79 FATIGUE 06/17/2011 MADL ACTIVITIES SPECIALIST, DARIAN L 783.1 recent weight gain (___ lbs) [reported] 06/17/2011 MADL ACTIVITIES SPECIALIST, DARIAN L 784.0 headache 06/17/2011 LEONARDO DO, [...] LEONARDO DO K 784.0 headache 06/17/2011 VA ACTIVITIES SPECIALIST, MISA 285.9 ANEMIA 06/17/2011 VA ACTIVITIES SPECIALIST, MISA 780.79 FATIGUE 06/17/2011 VA ACTIVITIES SPECIALIST, MISA 783.1 recent weight gain (___ lbs) [reported] 06/17/2011 VA ACTIVITIES SPECIALIST, MISA 784.0 headache 06/17/2011 MADL ACTIVITIES SPECIALIST, DARIAN L 285.9 ANEMIA 06/17/2011 MADL ACTIVITIES SPECIALIST, DARIAN L 780.79 FATIGUE 06/17/2011 MADL ACTIVITIES SPECIALIST, DARIAN L 783.1 recent weight gain (___ lbs) [reported] 06/17/2011 MADL ACTIVITIES SPECIALIST, DARIAN L 784.0 headache 06/17/2011 JESSICA CABRERA PHD 285.9 ANEMIA 06/17/2011 JESSICA CABRERA PHD 780.79 FATIGUE 06/17/2011 JESSICA CABRERA PHD 783.1 recent weight gain (___ lbs) [reported] 06/17/2011 JESSICA CABRERA PHD 784.0 headache 06/17/2011 MADL ACTIVITIES SPECIALIST, DARIAN L 285.9 ANEMIA 06/17/2011 MADL ACTIVITIES SPECIALIST, DARIAN L 780.79 FATIGUE 06/17/2011 MADL ACTIVITIES SPECIALIST, DARIAN L 783.1 recent weight gain (___ lbs) [reported] 06/17/2011 MADL ACTIVITIES SPECIALIST, DARIAN L 784.0 headache 06/17/2011 VA ACTIVITIES SPECIALIST, MISA 285.9 ANEMIA 06/17/2011 VA ACTIVITIES SPECIALIST, MISA 780.79 FATIGUE 06/17/2011 VA ACTIVITIES SPECIALIST, MISA 783.1 recent weight gain (___ lbs) [reported] 06/17/2011 VA ACTIVITIES SPECIALIST, MISA 784.0 headache 06/17/2011 JESSICA CABRERA PHD 285.9 ANEMIA 06/17/2011 JESSICA CABRERA PHD 780.79 FATIGUE 06/17/2011 JESSICA CABRERA PHD 783.1 recent weight gain (___ lbs) [reported] 06/17/2011 RICK ALBERTO JESSICA A 784.0 headache 06/17/2011 VA ACTIVITIES SPECIALIST, MISA 285.9 ANEMIA 06/17/2011 VA ACTIVITIES SPECIALIST, MISA 780.79 FATIGUE 06/17/2011 VA ACTIVITIES SPECIALIST, MISA 783.1 recent weight gain (___ lbs) [reported] 06/17/2011 VA ACTIVITIES SPECIALIST, MISA 784.0 headache 06/17/2011 MADL ACTIVITIES SPECIALIST, DARIAN L 285.9 ANEMIA 06/17/2011 MADL ACTIVITIES SPECIALIST, DARIAN L 780.79 FATIGUE 06/17/2011 MADL ACTIVITIES SPECIALIST, DARIAN L 783.1 recent weight gain (___ lbs) [reported] 06/17/2011 MADL ACTIVITIES SPECIALIST, DARIAN L 784.0 headache 06/17/2011 FLOYD ACTIVITIES SPECIALIST, ANGEL R 285.9 ANEMIA 06/17/2011 FLOYD ACTIVITIES SPECIALIST, ANGEL R 780.79 FATIGUE 06/17/2011 FLOYD ACTIVITIES SPECIALIST, ANGEL R 783.1 recent weight gain (___ lbs) [reported] 06/17/2011 FLOYD ACTIVITIES SPECIALIST, ANGEL R 784.0 headache 06/17/2011 MADL ACTIVITIES SPECIALIST, DARIAN L 285.9 ANEMIA 06/17/2011 MADL ACTIVITIES SPECIALIST, DARIAN L 780.79 FATIGUE 06/17/2011 MADL ACTIVITIES SPECIALIST, DARIAN L 783.1 recent weight gain (___ lbs) [reported] 06/17/2011 MADL ACTIVITIES SPECIALIST, DARIAN L 784.0 headache 06/17/2011 VA ACTIVITIES SPECIALIST, MISA 285.9 ANEMIA 06/17/2011 VA ACTIVITIES SPECIALIST, MISA 780.79 FATIGUE 06/17/2011 VA ACTIVITIES SPECIALIST, MISA 783.1 recent weight gain (___ lbs) [reported] 06/17/2011 VA ACTIVITIES SPECIALIST, MISA 784.0 headache 06/17/2011 MADL ACTIVITIES SPECIALIST, DARIAN L 285.9 ANEMIA 06/17/2011 MADL ACTIVITIES SPECIALIST, DARIAN L 780.79 FATIGUE 06/17/2011 MADL ACTIVITIES SPECIALIST, DARIAN L 783.1 recent weight gain (___ lbs) [reported] 06/17/2011 DARIAN HELTON APRN 784.0 headache 06/17/2011 VA ACTIVITIES SPECIALIST, MISA 285.9 ANEMIA 06/17/2011 VABUD RIVERAN, MISA 780.79 FATIGUE 06/17/2011 VABUD RIVERAN, MISA 783.1 recent weight gain (___ lbs) [reported] 06/17/2011 VABUD RIVERAN, MISA 784.0 headache 06/17/2011 285.9 ANEMIA 06/17/2011 780.79 FATIGUE 06/17/2011 783.1 recent weight gain (___ lbs) [reported] 06/17/2011 784.0 headache 06/21/2011 JAYME COOPER BALBINA R 296.32 MO DEPRESSIVE RECURRENT MODERATE 06/21/2011 296.32 [...] APRN 296.32 MO DEPRESSIVE RECURRENT MODERATE 06/21/2011 NORA LEONARDO DO 296.32 MO DEPRESSIVE RECURRENT MODERATE 06/21/2011 NORA LEONARDO DO 296.32 MO DEPRESSIVE RECURRENT MODERATE 06/21/2011 LEONARDO DO, NORA K 296.32 MO DEPRESSIVE RECURRENT MODERATE 06/21/2011 MILO SEYMOUR, BALTA 296.32 MO DEPRESSIVE RECURRENT MODERATE 06/21/2011 VA ACTIVITIES SPECIALIST, MISA 296.32 MO DEPRESSIVE RECURRENT MODERATE 06/21/2011 VA ACTIVITIES SPECIALIST, MISA 296.32 MO DEPRESSIVE RECURRENT MODERATE 06/21/2011 WHITE DDS, JEREMIE Pina 296.32 MO DEPRESSIVE RECURRENT MODERATE 06/21/2011 VA ACTIVITIES SPECIALIST, MISA 296.32 MO DEPRESSIVE RECURRENT MODERATE 06/21/2011 VA ACTIVITIES SPECIALIST, MISA 296.32 MO DEPRESSIVE RECURRENT MODERATE 06/21/2011 MADL ACTIVITIES SPECIALIST, DARIAN L 296.32 MO DEPRESSIVE RECURRENT MODERATE 06/21/2011 LEONARDO DO NORA K 296.32 MO DEPRESSIVE RECURRENT MODERATE 06/21/2011 LEONARDO DO, NORA K 296.32 MO DEPRESSIVE RECURRENT MODERATE 06/21/2011 LEONARDO DO NORA K 296.32 MO DEPRESSIVE RECURRENT MODERATE 06/21/2011 VA ACTIVITIES SPECIALIST MISA 296.32 MO DEPRESSIVE RECURRENT MODERATE 06/21/2011 MADL ACTIVITIES SPECIALIST, DARIAN L 296.32 MO DEPRESSIVE RECURRENT MODERATE 06/21/2011 RICK ALBERTO, JESSICA Sabillon 296.32 MO DEPRESSIVE RECURRENT MODERATE 06/21/2011 MADL ACTIVITIES SPECIALIST, DARIAN L 296.32 MO DEPRESSIVE RECURRENT MODERATE 06/21/2011 VA ACTIVITIES SPECIALIST MISA 296.32 MO DEPRESSIVE RECURRENT MODERATE 06/21/2011 RICK ALBERTO, JESSICA Sabillon 296.32 MO DEPRESSIVE RECURRENT MODERATE 06/21/2011 VA ACTIVITIES SPECIALIST MISA 296.32 MO DEPRESSIVE RECURRENT MODERATE 06/21/2011 MADL ACTIVITIES SPECIALIST, DARIAN L 296.32 MO DEPRESSIVE RECURRENT MODERATE 06/21/2011 FLOYD COOPER ANGEL R 296.32 MO DEPRESSIVE RECURRENT MODERATE 06/21/2011 MADL ACTIVITIES SPECIALIST, DARIAN L 296.32 MO DEPRESSIVE RECURRENT MODERATE 06/21/2011 VA ACTIVITIES SPECIALIST MISA 296.32 MO DEPRESSIVE RECURRENT MODERATE 06/21/2011 MADL ACTIVITIES SPECIALIST, DARIAN L 296.32 MO DEPRESSIVE RECURRENT MODERATE 06/21/2011 VA ACTIVITIES SPECIALIST, MISA 296.32 MO DEPRESSIVE RECURRENT MODERATE 06/21/2011 [...] OF ANKLE SPRAIN 07/02/2011 JOAO ALBERT APRN 845.00 UNSPECIFIED SITE OF ANKLE SPRAIN 07/02/2011 BRIANDA LOUIS APRN 845.00 UNSPECIFIED SITE OF ANKLE SPRAIN 07/02/2011 JESSICA CABRERA PHD A 845.00 UNSPECIFIED SITE OF ANKLE SPRAIN 07/02/2011 JESSICA CABRERA PHD A 845.00 UNSPECIFIED SITE OF ANKLE SPRAIN 07/02/2011 RICK ALBERTO, JESSICA A 845.00 UNSPECIFIED SITE OF ANKLE SPRAIN 07/02/2011 BRIANDA L[place]IS APRN 845.00 UNSPECIFIED SITE OF ANKLE SPRAIN 07/02/2011 RICK ALBERTO, JESSICA A 845.00 UNSPECIFIED SITE OF ANKLE SPRAIN 07/02/2011 DOMINIC BAL MD 845.00 UNSPECIFIED SITE OF ANKLE SPRAIN 07/02/2011 DOMINIC BAL MD 845.00 UNSPECIFIED SITE OF ANKLE SPRAIN 07/02/2011 JESSICA CABRERA PHD A 845.00 UNSPECIFIED SITE OF ANKLE SPRAIN 07/02/2011 BRIANDA L[place]IS APRN 845.00 UNSPECIFIED SITE OF ANKLE SPRAIN 07/02/2011 NORA LEONARDO DO 845.00 UNSPECIFIED SITE OF ANKLE SPRAIN 07/02/2011 LEONARDO DO, NORA K 845.00 UNSPECIFIED SITE OF ANKLE SPRAIN 07/02/2011 LEONARDO DO, NORA K 845.00 UNSPECIFIED SITE OF ANKLE SPRAIN 07/02/2011 BALTA PEDRAZA MD 845.00 UNSPECIFIED SITE OF ANKLE SPRAIN 07/02/2011 VA ACTIVITIES SPECIALIST, MISA 845.00 UNSPECIFIED SITE OF ANKLE SPRAIN 07/02/2011 VA ACTIVITIES SPECIALIST, MISA 845.00 UNSPECIFIED SITE OF ANKLE SPRAIN 07/02/2011 JEREMIE ALEX DDS 845.00 UNSPECIFIED SITE OF ANKLE SPRAIN 07/02/2011 VA ACTIVITIES SPECIALIST, MISA 845.00 UNSPECIFIED SITE OF ANKLE SPRAIN 07/02/2011 VA ACTIVITIES SPECIALIST, MISA 845.00 UNSPECIFIED SITE OF ANKLE SPRAIN 07/02/2011 MADL ACTIVITIES SPECIALIST, DARIAN L 845.00 UNSPECIFIED SITE OF ANKLE SPRAIN 07/02/2011 LEONARDO DO NORA K 845.00 UNSPECIFIED SITE OF ANKLE SPRAIN 07/02/2011 LEONARDO DO NORA K 845.00 UNSPECIFIED SITE OF ANKLE SPRAIN 07/02/2011 LEONARDO DO NORA K 845.00 UNSPECIFIED SITE OF ANKLE SPRAIN 07/02/2011 VA ACTIVITIES SPECIALIST, MISA 845.00 UNSPECIFIED SITE OF ANKLE SPRAIN 07/02/2011 MADL ACTIVITIES SPECIALIST, DARIAN L 845.00 UNSPECIFIED SITE OF ANKLE SPRAIN 07/02/2011 RICK ALBERTO, JESSICA Sabillon 845.00 UNSPECIFIED SITE OF ANKLE SPRAIN 07/02/2011 MADL ACTIVITIES SPECIALIST, DARIAN L 845.00 UNSPECIFIED SITE OF ANKLE SPRAIN 07/02/2011 VA ACTIVITIES SPECIALIST, MISA 845.00 UNSPECIFIED SITE OF ANKLE SPRAIN 07/02/2011 RICK ALBERTO, JESSICA Sabillon 845.00 UNSPECIFIED SITE OF ANKLE SPRAIN 07/02/2011 VA ACTIVITIES SPECIALIST, MISA 845.00 UNSPECIFIED SITE OF ANKLE SPRAIN 07/02/2011 MADL ACTIVITIES SPECIALIST DARIAN L 845.00 UNSPECIFIED SITE OF ANKLE SPRAIN 07/02/2011 ANGEL BARRIENTOS APRN 845.00 UNSPECIFIED SITE OF ANKLE SPRAIN 07/02/2011 MADL ACTIVITIES SPECIALIST, DARIAN L 845.00 UNSPECIFIED SITE OF ANKLE SPRAIN 07/02/2011 MISA DE DIOS APRN 845.00 UNSPECIFIED SITE OF ANKLE SPRAIN 07/02/2011 DANIE RIVERANDARIAN 845.00 UNSPECIFIED SITE OF ANKLE SPRAIN 07/02/2011 VAMISA FARRELL APRN 845.00 UNSPECIFIED SITE OF ANKLE SPRAIN [...] [place] APRN 300.00 ANXIETY STATE UNSPECIFIED 07/11/2011 RICK ALBERTO, JESSICA Sabillon 300.00 ANXIETY STATE UNSPECIFIED 07/11/2011 RICK ALBERTO, JESSICA A 300.00 ANXIETY STATE UNSPECIFIED 07/11/2011 RICK PHD, JESSICA A 300.00 ANXIETY STATE UNSPECIFIED 07/11/2011 BRIANDA LOUIS APRN 300.00 ANXIETY STATE UNSPECIFIED 07/11/2011 RICK PHD, JESSICA A 300.00 ANXIETY STATE UNSPECIFIED 07/11/2011 DOMINIC BAL MD 300.00 ANXIETY STATE UNSPECIFIED 07/11/2011 DOMINIC BAL MD 300.00 ANXIETY STATE UNSPECIFIED 07/11/2011 RICK ALBERTO, JESSICA A 300.00 ANXIETY STATE UNSPECIFIED 07/11/2011 BRIANDA L[place]IS APRN 300.00 ANXIETY STATE UNSPECIFIED 07/11/2011 NORA LEONARDO DO 300.00 ANXIETY STATE UNSPECIFIED 07/11/2011 LEONARDO DO, NORA K 300.00 ANXIETY STATE UNSPECIFIED 07/11/2011 LEONARDO DO, NORA K 300.00 ANXIETY STATE UNSPECIFIED 07/11/2011 BALTA PEDRAZA MD 300.00 ANXIETY STATE UNSPECIFIED 07/11/2011 VA ACTIVITIES SPECIALIST, MISA 300.00 ANXIETY STATE UNSPECIFIED 07/11/2011 VA ACTIVITIES SPECIALIST, MISA 300.00 ANXIETY STATE UNSPECIFIED 07/11/2011 ISAI DDS, JEREMIE Pina 300.00 ANXIETY STATE UNSPECIFIED 07/11/2011 VA ACTIVITIES SPECIALIST, MISA 300.00 ANXIETY STATE UNSPECIFIED 07/11/2011 VA ACTIVITIES SPECIALIST, MISA 300.00 ANXIETY STATE UNSPECIFIED 07/11/2011 MADL ACTIVITIES SPECIALIST, DARIAN L 300.00 ANXIETY STATE UNSPECIFIED 07/11/2011 LEONARDO DO, NORA K 300.00 ANXIETY STATE UNSPECIFIED 07/11/2011 LEONARDO DO, NORA K 300.00 ANXIETY STATE UNSPECIFIED 07/11/2011 LEONARDO DO, NORA K 300.00 ANXIETY STATE UNSPECIFIED 07/11/2011 VA ACTIVITIES SPECIALIST, MISA 300.00 ANXIETY STATE UNSPECIFIED 07/11/2011 MADL ACTIVITIES SPECIALIST, DARIAN L 300.00 ANXIETY STATE UNSPECIFIED 07/11/2011 RICK ALBERTO, JESSICA Sabillon 300.00 ANXIETY STATE UNSPECIFIED 07/11/2011 MADL ACTIVITIES SPECIALIST, DARIAN L 300.00 ANXIETY STATE UNSPECIFIED 07/11/2011 VA ACTIVITIES SPECIALIST, MISA 300.00 ANXIETY STATE UNSPECIFIED 07/11/2011 RICK ALBERTO, JESSICA Sabillon 300.00 ANXIETY STATE UNSPECIFIED 07/11/2011 VA ACTIVITIES SPECIALIST, MISA 300.00 ANXIETY STATE UNSPECIFIED 07/11/2011 MADL ACTIVITIES SPECIALIST, DARIAN L 300.00 ANXIETY STATE UNSPECIFIED 07/11/2011 FLOYD ACTIVITIES SPECIALIST, ANGEL R 300.00 ANXIETY STATE UNSPECIFIED 07/11/2011 MADL ACTIVITIES SPECIALIST, DARIAN L 300.00 ANXIETY STATE UNSPECIFIED 07/11/2011 VA ACTIVITIES SPECIALIST, MISA 300.00 ANXIETY STATE UNSPECIFIED 07/11/2011 MADL ACTIVITIES SPECIALIST, DARIAN L 300.00 ANXIETY STATE UNSPECIFIED 07/11/2011 VA ACTIVITIES SPECIALIST, MISA 300.00 ANXIETY STATE UNSPECIFIED 07/11/2011 300.00 ANXIETY [...] CABRERA PHD 728.71 PLANTAR FASCIAL FIBROMATOSIS 07/18/2011 BRAINDA LOUIS APRN 728.71 PLANTAR FASCIAL FIBROMATOSIS 07/18/2011 JESSICA CABRERA PHD 728.71 PLANTAR FASCIAL FIBROMATOSIS 07/18/2011 DOMINIC BAL MD 728.71 PLANTAR FASCIAL FIBROMATOSIS 07/18/2011 DOMINIC BAL MD 728.71 PLANTAR FASCIAL FIBROMATOSIS 07/18/2011 JESSICA CABRERA PHD 728.71 PLANTAR FASCIAL FIBROMATOSIS 07/18/2011 BRIANDA L[place]IS APRN 728.71 PLANTAR FASCIAL FIBROMATOSIS 07/18/2011 NOAR LEONARDO DO 728.71 PLANTAR FASCIAL FIBROMATOSIS 07/18/2011 LEONARDO NORA BOATENG K 728.71 PLANTAR FASCIAL FIBROMATOSIS 07/18/2011 LEONARDO TREVOR BOATENGA K 728.71 PLANTAR FASCIAL FIBROMATOSIS 07/18/2011 BALTA PEDRAZA MD 728.71 PLANTAR FASCIAL FIBROMATOSIS 07/18/2011 MISA DE DIOS APRN 728.71 PLANTAR FASCIAL FIBROMATOSIS 07/18/2011 MISA DE DIOS APRN 728.71 PLANTAR FASCIAL FIBROMATOSIS 07/18/2011 JEREMIE ALEX DDS 728.71 PLANTAR FASCIAL FIBROMATOSIS 07/18/2011 VA COOPER MISA 728.71 PLANTAR FASCIAL FIBROMATOSIS 07/18/2011 VA ACTIVITIES SPECIALIST, MISA 728.71 PLANTAR FASCIAL FIBROMATOSIS 07/18/2011 EVAL NATHALY COOPERWNYA L 728.71 PLANTAR FASCIAL FIBROMATOSIS 07/18/2011 LEONARDO TREVOR BOATENGA K 728.71 PLANTAR FASCIAL FIBROMATOSIS 07/18/2011 LEONARDO DOTREVORA K 728.71 PLANTAR FASCIAL FIBROMATOSIS 07/18/2011 LEONARDO DOTREVORA K 728.71 PLANTAR FASCIAL FIBROMATOSIS 07/18/2011 VA ACTIVITIES SPECIALIST, MISA 728.71 PLANTAR FASCIAL FIBROMATOSIS 07/18/2011 RAMON HELTON APRNA L 728.71 PLANTAR FASCIAL FIBROMATOSIS 07/18/2011 RICK ALBERTO, JESSICA Sabillon 728.71 PLANTAR FASCIAL FIBROMATOSIS 07/18/2011 NATHALY HELTON APRNWNYA L 728.71 PLANTAR FASCIAL FIBROMATOSIS 07/18/2011 VA KENNETH MISA 728.71 PLANTAR FASCIAL FIBROMATOSIS 07/18/2011 RICK ALBERTO, JESSICA A 728.71 PLANTAR FASCIAL FIBROMATOSIS 07/18/2011 VA ACTIVITIES SPECIALIST, MISA 728.71 PLANTAR FASCIAL FIBROMATOSIS 07/18/2011 NATHALY HELTON APRNWNYA L 728.71 PLANTAR FASCIAL FIBROMATOSIS 07/18/2011 ANGEL BARRIENTOS APRN 728.71 PLANTAR FASCIAL FIBROMATOSIS 07/18/2011 EVAL NATHALY COOPERWNYA L 728.71 PLANTAR FASCIAL FIBROMATOSIS 07/18/2011 VA KENNETH MISA 728.71 PLANTAR FASCIAL FIBROMATOSIS 07/18/2011 EVAL KENNETH DARIAN L 728.71 PLANTAR FASCIAL FIBROMATOSIS 07/18/2011 VA ACTIVITIES SPECIALIST, MISA 728.71 PLANTAR FASCIAL FIBROMATOSIS 07/18/2011 728.71 [...] AN GEN ANXIETY 07/29/2011 JOAO ALBERT APRN A 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 07/29/2011 JOAO ALBERT APRN A 300.02 AN GEN ANXIETY 07/29/2011 BRIANDA [place]IS APRN 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 07/29/2011 BRIANDA [place] APRN 300.02 AN GEN ANXIETY 07/29/2011 JESSICA CABRERA PHD 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 07/29/2011 JESSICA CABRERA PHD 300.02 AN GEN ANXIETY 07/29/2011 JESSICA CBARERA PHD 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 07/29/2011 JESSICA CABRERA PHD A 300.02 AN GEN ANXIETY 07/29/2011 JESSICA CABRERA PHD A 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 07/29/2011 JESSICA CABRERA PHD A 300.02 AN GEN ANXIETY 07/29/2011 BRIANDA L[place]IS APRN 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 07/29/2011 BRIANDA [place] APRN 300.02 AN GEN ANXIETY 07/29/2011 JESSICA CABRERA PHD A 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 07/29/2011 JESSICA CABRERA PHD A 300.02 AN GEN ANXIETY 07/29/2011 DOMINIC [...] PEDRAZA MD 300.02 AN GEN ANXIETY 07/29/2011 MISA DE DIOS APRN 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 07/29/2011 VA COOPER MISA 300.02 AN GEN ANXIETY 07/29/2011 MISA DE DIOS APRN 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 07/29/2011 VA COOPER MISA 300.02 AN GEN ANXIETY 07/29/2011 JEREMIE ALEX DDS 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 07/29/2011 JEREMIE ALEX DDS 300.02 AN GEN ANXIETY 07/29/2011 MISA DE DIOS APRN 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 07/29/2011 VA COOPER MISA 300.02 AN GEN ANXIETY 07/29/2011 VA COOPER MISA 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 07/29/2011 VA ACTIVITIES SPECIALIST, MISA 300.02 AN GEN ANXIETY 07/29/2011 MADL ACTIVITIES SPECIALIST, DARIAN L 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 07/29/2011 MADL ACTIVITIES SPECIALIST, DARIAN L 300.02 AN GEN ANXIETY 07/29/2011 LEONARDO DOTREVORA K 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 07/29/2011 LEONARDO NORA K 300.02 AN GEN ANXIETY 07/29/2011 LEONARDO TREVOR BOATENGA K 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 07/29/2011 JORDEN BOATENG NORA K 300.02 AN GEN ANXIETY 07/29/2011 LEONARDO TREVOR BOATENGA K 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 07/29/2011 JORDEN BOATENG NORA K 300.02 AN GEN ANXIETY 07/29/2011 VA ACTIVITIES SPECIALIST, MISA 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 07/29/2011 AV ACTIVITIES SPECIALIST, MISA 300.02 AN GEN ANXIETY 07/29/2011 MADL ACTIVITIES SPECIALIST, DARIAN L 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 07/29/2011 MADL ACTIVITIES SPECIALIST, DARIAN L 300.02 AN GEN ANXIETY 07/29/2011 RICK PHD, JESSICA Sabillon 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 07/29/2011 RICK PHD, JESSICA A 300.02 AN GEN ANXIETY 07/29/2011 MADL ACTIVITIES SPECIALIST, DARIAN L 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 07/29/2011 MADL ACTIVITIES SPECIALIST, DARIAN L 300.02 AN GEN ANXIETY 07/29/2011 VA ACTIVITIES SPECIALIST MISA 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 07/29/2011 VA ACTIVITIES SPECIALIST, MISA 300.02 AN GEN ANXIETY 07/29/2011 RICK PHD, JESSICA A 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 07/29/2011 RICK PHD, JESSICA A 300.02 AN GEN ANXIETY 07/29/2011 VA ACTIVITIES SPECIALIST, MISA 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 07/29/2011 [facility] MISA 300.02 AN GEN ANXIETY 07/29/2011 [facility] ACTIVITIES SPECIALIST, DARIAN L 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 07/29/2011 XU HELTON APRNNYA L 300.02 AN GEN ANXIETY 07/29/2011 FLOYD COOPER ANGEL R 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 07/29/2011 FLOYD COOPER ANGEL R 300.02 AN GEN ANXIETY 07/29/2011 XU HELTON APRNNYA L 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 07/29/2011 NATHALY HELTON APRNWNYA L 300.02 AN GEN ANXIETY 07/29/2011 [facility] COOPER MISA 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 07/29/2011 JAVIER DE DIOS APRNETTE 300.02 AN GEN ANXIETY 07/29/2011 XU HELTON APRNNYA L 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 07/29/2011 DANIE COOPER DARIAN L 300.02 AN GEN ANXIETY 07/29/2011 [facility] COOPER MISA 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 07/29/2011 [facility] COOPER MISA 300.02 AN GEN ANXIETY 07/29/2011 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 07/29/2011 300.02 AN GEN ANXIETY 08/26/2011 BALBINA DELACRUZ APRN R 462 Pharyngitis Acute 08/26/2011 BALBINA DELACRUZ APRN [...] BACK PAIN, LOWER 08/26/2011 JOAO ALBERT APRN 462 Pharyngitis Acute 08/26/2011 JOAO ALBERT APRN 724.2 BACK PAIN, LOWER 08/26/2011 BRIANDA LOUIS APRN 462 Pharyngitis Acute 08/26/2011 BRIANDA LOUIS APRN 724.2 BACK PAIN, LOWER 08/26/2011 [facility]ESS[facility] A 462 Pharyngitis Acute 08/26/2011 [facility] 724.2 BACK PAIN, LOWER 08/26/2011 [facility] JESSICA A 462 Pharyngitis Acute 08/26/2011 [facility], JESSICA A 724.2 BACK PAIN, LOWER 08/26/2011 [facility] JESSICA A 462 Pharyngitis Acute 08/26/2011 [facility], JESSICA A 724.2 BACK PAIN, LOWER 08/26/2011 BRIANDA LOUIS APRN 462 Pharyngitis Acute 08/26/2011 BRIANDA LOUIS APRN 724.2 BACK PAIN, LOWER 08/26/2011 [facility] JESSICA A 462 Pharyngitis Acute 08/26/2011 [facility] JESSICA A 724.2 BACK PAIN, LOWER 08/26/2011 VALERIANO SEYMOUR, DOMINIC Iverson 462 Pharyngitis Acute 08/26/2011 VALERIANO SEYMOUR, DOMINIC Iverson 724.2 BACK PAIN, LOWER 08/26/2011 VALERIANO SEYMOUR, DOMINIC M 462 Pharyngitis Acute 08/26/2011 VALERIANO SEYMOUR, DOMINIC Iverson 724.2 lower back pain 08/26/2011 BOERAVI PHD, JESSICA A 462 Pharyngitis Acute 08/26/2011 [facility] JESSICA A 724.2 lower back pain 08/26/2011 BRIANDA LOUIS APRN 462 Pharyngitis Acute 08/26/2011 BRIANDA LOUIS APRN 724.2 lower back pain 08/26/2011 LEONARDO DO, [...] MD 724.2 lower back pain 08/26/2011 [facility], MISA 462 Pharyngitis Acute 08/26/2011 [facility], MISA 724.2 lower back pain 08/26/2011 [facility], MISA 462 Pharyngitis Acute 08/26/2011 [facility], MISA 724.2 lower back pain 08/26/2011 WHITE DDS, JEREMIE D 462 Pharyngitis Acute 08/26/2011 WHITE DDS, JEREMIE D 724.2 lower back pain 08/26/2011 [facility], MISA 462 Pharyngitis Acute 08/26/2011 [facility], MISA 724.2 lower back pain 08/26/2011 [facility], MISA 462 Pharyngitis Acute 08/26/2011 [facility], MISA 724.2 lower back pain 08/26/2011 [facility] ACTIVITIES SPECIALIST, DARIAN L 462 Pharyngitis Acute 08/26/2011 [facility] ACTIVITIES SPECIALIST, DARIAN L 724.2 lower back pain 08/26/2011 LEONARDO DO, NORA K 462 Pharyngitis Acute 08/26/2011 LEONARDO DO, NORA K 724.2 lower back pain 08/26/2011 LEONARDO DO, NORA K 462 Pharyngitis Acute 08/26/2011 LEONARDO DO, NORA K 724.2 lower back pain 08/26/2011 LEONARDO DO, NORA K 462 Pharyngitis Acute 08/26/2011 LEONARDO DO, NORA K 724.2 lower back pain 08/26/2011 [facility] ACTIVITIES SPECIALIST, MISA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 03/18/2013 RICK PHD, JESSICA Sabillon 719.43 PAIN- WRIST 03/18/2013 MADL ACTIVITIES SPECIALIST, DARIAN L 719.43 PAIN- WRIST 03/18/2013 [facility] ACTIVITIES SPECIALIST, MISA 719.43 PAIN- WRIST 03/18/2013 RICK PHD, JESSICA Sabillon 719.43 PAIN- WRIST 03/18/2013 VA ACTIVITIES SPECIALIST, MISA 719.43 PAIN- WRIST 03/18/2013 MADL ACTIVITIES SPECIALIST, DARIAN L 719.43 PAIN- WRIST 03/18/2013 FLOYD ACTIVITIES SPECIALIST, ANGEL R 719.43 PAIN- WRIST 03/18/2013 MADL ACTIVITIES SPECIALIST, DARIAN L 719.43 PAIN- WRIST 03/18/2013 VA ACTIVITIES SPECIALIST, MISA 719.43 PAIN- WRIST 03/18/2013 MADL ACTIVITIES SPECIALIST, DARIAN L 719.43 PAIN- WRIST 03/18/2013 VA ACTIVITIES SPECIALIST, MISA 719.43 PAIN- WRIST 06/04/2013 DOMINIC BAL MD 462 SORE THROAT ACUTE 06/04/2013 DOMINIC BAL MD 719.46 joint pain in both knees 06/04/2013 DOMINIC BAL MD 788.1 DYSURIA 06/04/2013 DOMINIC BAL MD 462 SORE THROAT ACUTE 06/04/2013 DOMINIC BAL MD 719.46 joint pain in both knees 06/04/2013 DOMINIC BAL MD 788.1 DYSURIA 06/04/2013 RICK ALBERTO, JESSICA Sabillon 462 SORE THROAT ACUTE 06/04/2013 RICK ALBERTO, JESSICA Sabillon 719.46 joint pain in both knees 06/04/2013 RICK ALBERTO, JESSICA Sabillon 788.1 DYSURIA 06/04/2013 BRIANDA LOUIS APRN 462 SORE THROAT ACUTE 06/04/2013 BRIANDA LOUIS APRN 719.46 joint pain in both knees 06/04/2013 BRIANDA LOUIS APRN 788.1 DYSURIA 06/04/2013 NORA LEONARDO DO 462 SORE THROAT ACUTE 06/04/2013 LEONARDO DO, [...] BALTA PEDRAZA MD 788.1 DYSURIA 06/04/2013 VA ACTIVITIES SPECIALIST, MISA 462 SORE THROAT ACUTE 06/04/2013 VA ACTIVITIES SPECIALIST, MISA 719.46 joint pain in both knees 06/04/2013 VA ACTIVITIES SPECIALIST, MISA 788.1 DYSURIA 06/04/2013 VA ACTIVITIES SPECIALIST, MISA 462 SORE THROAT ACUTE 06/04/2013 VA ACTIVITIES SPECIALIST, MISA 719.46 joint pain in both knees 06/04/2013 VA ACTIVITIES SPECIALIST, MISA 788.1 DYSURIA 06/04/2013 WHITE DDS, JEREMIE D 462 SORE THROAT ACUTE 06/04/2013 WHITE DDS, JEREMIE D 719.46 joint pain in both knees 06/04/2013 WHITE DDS, JEREMIE D 788.1 DYSURIA 06/04/2013 VA ACTIVITIES SPECIALIST, MISA 462 SORE THROAT ACUTE 06/04/2013 VA ACTIVITIES SPECIALIST, MISA 719.46 joint pain in both knees 06/04/2013 VA ACTIVITIES SPECIALIST, MISA 788.1 DYSURIA 06/04/2013 VA ACTIVITIES SPECIALIST, MISA 462 SORE THROAT ACUTE 06/04/2013 VA ACTIVITIES SPECIALIST, MISA 719.46 joint pain in both knees 06/04/2013 VA ACTIVITIES SPECIALIST, MISA 788.1 DYSURIA 06/04/2013 MADL ACTIVITIES SPECIALIST, DARIAN L 462 SORE THROAT ACUTE 06/04/2013 MADL ACTIVITIES SPECIALIST, DARIAN L 719.46 joint pain in both knees 06/04/2013 MADL ACTIVITIES SPECIALIST, DARIAN L 788.1 DYSURIA 06/04/2013 LEONARDO DO, [...] DO, NORA K 788.1 DYSURIA 06/04/2013 VA ACTIVITIES SPECIALIST, MISA 462 SORE THROAT ACUTE 06/04/2013 VA ACTIVITIES SPECIALIST, MISA 719.46 joint pain in both knees 06/04/2013 VA ACTIVITIES SPECIALIST, MISA 788.1 DYSURIA 06/04/2013 MADL ACTIVITIES SPECIALIST, DARIAN L 462 SORE THROAT ACUTE 06/04/2013 MADL ACTIVITIES SPECIALIST, DARIAN L 719.46 joint pain in both knees 06/04/2013 MADL ACTIVITIES SPECIALIST, DARIAN L 788.1 DYSURIA 06/04/2013 RICK ALBERTO, JESSICA A 462 SORE THROAT ACUTE 06/04/2013 RICK ALBERTO, JESSICA A 719.46 joint pain in both knees 06/04/2013 RICK ALBERTO, JESSICA A 788.1 DYSURIA 06/04/2013 MADL ACTIVITIES SPECIALIST, DARIAN L 462 SORE THROAT ACUTE 06/04/2013 MADL ACTIVITIES SPECIALIST, DARIAN L 719.46 joint pain in both knees 06/04/2013 MADL ACTIVITIES SPECIALIST, DARIAN L 788.1 DYSURIA 06/04/2013 VA ACTIVITIES SPECIALIST, MISA 462 SORE THROAT ACUTE 06/04/2013 VA ACTIVITIES SPECIALIST, MISA 719.46 joint pain in both knees 06/04/2013 VA ACTIVITIES SPECIALIST, MISA 788.1 DYSURIA 06/04/2013 RICK PHD, JESSICA A 462 SORE THROAT ACUTE 06/04/2013 RICK PHD, JESSICA A 719.46 joint pain in both knees 06/04/2013 RICK PHD, JESSICA A 788.1 DYSURIA 06/04/2013 VA ACTIVITIES SPECIALIST, MISA 462 SORE THROAT ACUTE 06/04/2013 VA ACTIVITIES SPECIALIST, MISA 719.46 joint pain in both knees 06/04/2013 VA ACTIVITIES SPECIALIST, MISA 788.1 DYSURIA 06/04/2013 MADL ACTIVITIES SPECIALIST, DARIAN L 462 SORE THROAT ACUTE 06/04/2013 MADL ACTIVITIES SPECIALIST, DARIAN L 719.46 joint pain in both knees 06/04/2013 MADL ACTIVITIES SPECIALIST, DARIAN L 788.1 DYSURIA 06/04/2013 FLOYD ACTIVITIES SPECIALIST, ANGEL R 462 SORE THROAT ACUTE 06/04/2013 FLOYD ACTIVITIES SPECIALIST, ANGEL R 719.46 joint pain in both knees 06/04/2013 FLOYD ACTIVITIES SPECIALIST, ANGEL R 788.1 DYSURIA 06/04/2013 MADL ACTIVITIES SPECIALIST, DARIAN L 462 SORE THROAT ACUTE 06/04/2013 MADL ACTIVITIES SPECIALIST, DARIAN L 719.46 joint pain in both knees 06/04/2013 MADL ACTIVITIES SPECIALIST, DARIAN L 788.1 DYSURIA 06/04/2013 VA ACTIVITIES SPECIALIST, MISA 462 SORE THROAT ACUTE 06/04/2013 VA ACTIVITIES SPECIALIST, MISA 719.46 joint pain in both knees 06/04/2013 VA ACTIVITIES SPECIALIST, MISA 788.1 DYSURIA 06/04/2013 MADL ACTIVITIES SPECIALIST, DARIAN L 462 SORE THROAT ACUTE 06/04/2013 MADL ACTIVITIES SPECIALIST, DARIAN L 719.46 joint pain in both knees 06/04/2013 MADL ACTIVITIES SPECIALIST, DARIAN L 788.1 DYSURIA 06/04/2013 VA ACTIVITIES SPECIALIST, MISA 462 SORE THROAT ACUTE 06/04/2013 VA ACTIVITIES SPECIALIST, MISA 719.46 joint pain in both knees 06/04/2013 VA ACTIVITIES SPECIALIST, MISA 788.1 DYSURIA 06/10/2013 VALERIANO SEYMOUR, DOMINIC Iverson 782.0 tingling (paresthesia) 06/10/2013 VALERIANO SEYMOUR, DOMINIC Iverson 789.00 abdominal pain 06/10/2013 RICK ALBERTO, JESSICA Sabillon 782.0 tingling (paresthesia) 06/10/2013 RICK ALBERTO, JESSICA Sabillon 789.00 abdominal pain 06/10/2013 BRIANDA [...] PEDRAZA MD 789.00 abdominal pain 06/10/2013 VA ACTIVITIES SPECIALIST, MISA 782.0 tingling (paresthesia) 06/10/2013 VA ACTIVITIES SPECIALIST, MISA 789.00 abdominal pain 06/10/2013 VA ACTIVITIES SPECIALIST, MISA 782.0 tingling (paresthesia) 06/10/2013 VA ACTIVITIES SPECIALIST, MISA 789.00 abdominal pain 06/10/2013 JEREMIE ALEX DDS 782.0 tingling (paresthesia) 06/10/2013 JEREMIE ALEX DDS 789.00 abdominal pain 06/10/2013 VA ACTIVITIES SPECIALIST, MISA 782.0 tingling (paresthesia) 06/10/2013 VA ACTIVITIES SPECIALIST, MISA 789.00 abdominal pain 06/10/2013 VA ACTIVITIES SPECIALIST, MISA 782.0 tingling (paresthesia) 06/10/2013 VA ACTIVITIES SPECIALIST, MISA 789.00 abdominal pain 06/10/2013 MADL ACTIVITIES SPECIALIST, DARIAN L 782.0 tingling (paresthesia) 06/10/2013 MADL ACTIVITIES SPECIALIST, DARIAN L 789.00 abdominal pain 06/10/2013 LEONARDO DO, NORA K 782.0 tingling (paresthesia) 06/10/2013 LEONARDO DO, NORA K 789.00 abdominal pain 06/10/2013 LEONARDO DO, NORA K 782.0 tingling (paresthesia) 06/10/2013 LEONARDO DO, NORA K 789.00 abdominal pain 06/10/2013 LEONARDO DO, NORA K 782.0 tingling (paresthesia) 06/10/2013 LEONARDO DO, NORA K 789.00 abdominal pain 06/10/2013 VA ACTIVITIES SPECIALIST, MISA 782.0 tingling (paresthesia) 06/10/2013 VA ACTIVITIES SPECIALIST, MISA 789.00 abdominal pain 06/10/2013 MADL ACTIVITIES SPECIALIST, DARIAN L 782.0 tingling (paresthesia) 06/10/2013 MADL ACTIVITIES SPECIALIST, DARIAN L 789.00 abdominal pain 06/10/2013 RICK PHD, JESSICA A 782.0 tingling (paresthesia) 06/10/2013 RICK PHD, JESSICA A 789.00 abdominal pain 06/10/2013 MADL ACTIVITIES SPECIALIST, DARIAN L 782.0 tingling (paresthesia) 06/10/2013 MADL ACTIVITIES SPECIALIST, DARIAN L 789.00 abdominal pain 06/10/2013 VA ACTIVITIES SPECIALIST, MISA 782.0 tingling (paresthesia) 06/10/2013 VA ACTIVITIES SPECIALIST, MISA 789.00 abdominal pain 06/10/2013 RICK PHD, JESSICA A 782.0 tingling (paresthesia) 06/10/2013 RICK PHD, JESSICA A 789.00 abdominal pain 06/10/2013 VA ACTIVITIES SPECIALIST, MISA 782.0 tingling (paresthesia) 06/10/2013 VA ACTIVITIES SPECIALIST, MISA 789.00 abdominal pain 06/10/2013 MADL ACTIVITIES SPECIALIST, DARIAN L 782.0 tingling (paresthesia) 06/10/2013 MADL ACTIVITIES SPECIALIST, DARIAN L 789.00 abdominal pain 06/10/2013 FLOYD ACTIVITIES SPECIALIST, ANGEL R 782.0 tingling (paresthesia) 06/10/2013 FLOYD ACTIVITIES SPECIALIST, ANGEL R 789.00 abdominal pain 06/10/2013 MADL ACTIVITIES SPECIALIST, DARIAN L 782.0 tingling (paresthesia) 06/10/2013 MADL ACTIVITIES SPECIALIST, DARIAN L 789.00 abdominal pain 06/10/2013 VA ACTIVITIES SPECIALIST, MISA 782.0 tingling (paresthesia) 06/10/2013 VA ACTIVITIES SPECIALIST, MISA 789.00 abdominal pain 06/10/2013 MADL ACTIVITIES SPECIALIST, DARIAN L 782.0 tingling (paresthesia) 06/10/2013 MADL ACTIVITIES SPECIALIST, DARIAN L 789.00 abdominal pain 06/10/2013 VA ACTIVITIES SPECIALIST, MISA 782.0 tingling (paresthesia) 06/10/2013 VA ACTIVITIES SPECIALIST, MISA 789.00 abdominal pain 07/02/2013 LEONARDO DO, NORA K 786.09 RESPIRATORY ABNORMALITY OTHER 07/02/2013 LEONARDO DO, NORA K 786.09 RESPIRATORY ABNORMALITY OTHER 07/02/2013 LEONARDO DO, NORA K 786.09 RESPIRATORY ABNORMALITY OTHER 07/02/2013 MILO SEYMOUR, BALTA 786.09 RESPIRATORY ABNORMALITY OTHER 07/02/2013 VA ACTIVITIES SPECIALIST, MISA 786.09 RESPIRATORY ABNORMALITY OTHER 07/02/2013 VA ACTIVITIES SPECIALIST, MISA 786.09 RESPIRATORY ABNORMALITY OTHER 07/02/2013 ISAI SPARKSS, JEREMIE Pina 786.09 RESPIRATORY ABNORMALITY OTHER 07/02/2013 VA ACTIVITIES SPECIALIST, MISA 786.09 RESPIRATORY ABNORMALITY OTHER 07/02/2013 VA ACTIVITIES SPECIALIST, MISA 786.09 RESPIRATORY ABNORMALITY OTHER 07/02/2013 MADL ACTIVITIES SPECIALIST, DARIAN L 786.09 RESPIRATORY ABNORMALITY OTHER 07/02/2013 LEONARDO DO, NORA K 786.09 RESPIRATORY ABNORMALITY OTHER 07/02/2013 LEONARDO DO, NORA K 786.09 RESPIRATORY ABNORMALITY OTHER 07/02/2013 LEONARDO DO, NORA K 786.09 RESPIRATORY ABNORMALITY OTHER 07/02/2013 VA ACTIVITIES SPECIALIST, MISA 786.09 RESPIRATORY ABNORMALITY OTHER 07/02/2013 MADL ACTIVITIES SPECIALIST, DARIAN L 786.09 RESPIRATORY ABNORMALITY OTHER 07/02/2013 RICK ALBERTO, JESSICA Sabillon 786.09 RESPIRATORY ABNORMALITY OTHER 07/02/2013 MADL ACTIVITIES SPECIALIST, DARIAN L 786.09 RESPIRATORY ABNORMALITY OTHER 07/02/2013 VA ACTIVITIES SPECIALIST, MISA 786.09 RESPIRATORY ABNORMALITY OTHER 07/02/2013 RICK PHD, JESSICA Sabillon 786.09 RESPIRATORY ABNORMALITY OTHER 07/02/2013 VA ACTIVITIES SPECIALIST, MISA 786.09 RESPIRATORY ABNORMALITY OTHER 07/02/2013 MADL ACTIVITIES SPECIALIST, DARIAN L 786.09 RESPIRATORY ABNORMALITY OTHER 07/02/2013 ANGEL BARRIENTOS APRN 786.09 RESPIRATORY ABNORMALITY OTHER 07/02/2013 MADL ACTIVITIES SPECIALIST, DARIAN L 786.09 RESPIRATORY ABNORMALITY OTHER 07/02/2013 VA ACTIVITIES SPECIALIST, MISA 786.09 RESPIRATORY ABNORMALITY OTHER 07/02/2013 MADL ACTIVITIES SPECIALIST, DARIAN L 786.09 RESPIRATORY ABNORMALITY OTHER 07/02/2013 VA ACTIVITIES SPECIALIST, MISA 786.09 RESPIRATORY ABNORMALITY OTHER 08/05/2013 LEONARDO DO, NORA K 733.92 CHONDROMALACIA 08/05/2013 LEONARDO DO, NORA K 733.92 CHONDROMALACIA 08/05/2013 MILO SEYMOUR, BALTA 733.92 CHONDROMALACIA 08/05/2013 VA ACTIVITIES SPECIALIST, MISA 733.92 CHONDROMALACIA 08/05/2013 VA ACTIVITIES SPECIALIST, MISA 733.92 CHONDROMALACIA 08/05/2013 JEREMIE ALEX DDS 733.92 CHONDROMALACIA 08/05/2013 VA ACTIVITIES SPECIALIST, MISA 733.92 CHONDROMALACIA 08/05/2013 VA ACTIVITIES SPECIALIST, MISA 733.92 CHONDROMALACIA 08/05/2013 MADL ACTIVITIES SPECIALIST, DARIAN L 733.92 CHONDROMALACIA 08/05/2013 LEONARDO DO, NORA K 733.92 CHONDROMALACIA 08/05/2013 LEONARDO DO, NORA K 733.92 CHONDROMALACIA 08/05/2013 LEONARDO DO, NORA K 733.92 CHONDROMALACIA 08/05/2013 VA ACTIVITIES SPECIALIST, MISA 733.92 CHONDROMALACIA 08/05/2013 MADL ACTIVITIES SPECIALIST, DARIAN L 733.92 CHONDROMALACIA 08/05/2013 RICK ALBERTO, JESSICA Sabillon 733.92 CHONDROMALACIA 08/05/2013 MADL ACTIVITIES SPECIALIST, DARIAN L 733.92 CHONDROMALACIA 08/05/2013 VA ACTIVITIES SPECIALIST, MISA 733.92 CHONDROMALACIA 08/05/2013 RICK PHD, JESSICA Sabillon 733.92 CHONDROMALACIA 08/05/2013 VA ACTIVITIES SPECIALIST, MISA 733.92 CHONDROMALACIA 08/05/2013 MADL ACTIVITIES SPECIALIST, DARIAN L 733.92 CHONDROMALACIA 08/05/2013 ANGEL BARRIENTOS APRN 733.92 CHONDROMALACIA 08/05/2013 MADL ACTIVITIES SPECIALIST, DARIAN L 733.92 CHONDROMALACIA 08/05/2013 VA ACTIVITIES SPECIALIST, MISA 733.92 CHONDROMALACIA 08/05/2013 MADL ACTIVITIES SPECIALIST, DARIAN L 733.92 CHONDROMALACIA 08/05/2013 VA ACTIVITIES SPECIALIST, MISA 733.92 CHONDROMALACIA 10/03/2013 NOBLE GOMEZ APRN Ot 620.2 OVARIAN CYST NEC/NOS 10/03/2013 NOBLE GOMEZ APRN Ot 789.00 ABDOMINAL PAIN, UNSPECIFIED SITE 11/01/2013 NOBLE GOMEZ APRN Ot 338.29 OTHER CHRONIC PAIN 11/01/2013 NOBLE GOMEZ APRN Ot 620.2 OVARIAN CYST NEC/NOS 11/01/2013 NOBLE GOMEZ ACTIVITIES SPECIALIST Ot 789.00 ABDOMINAL PAIN, UNSPECIFIED SITE 11/03/2013 DANIE ACTIVITIES SPECIALIST, DARIAN L 620.2 OVARIAN CYST 11/03/2013 LEONARDO DO, NORA K 620.2 OVARIAN CYST 11/03/2013 LEONARDO DO, NORA K 620.2 OVARIAN CYST 11/03/2013 LEONARDO DO, NORA K 620.2 OVARIAN CYST 11/03/2013 VA ACTIVITIES SPECIALIST, MISA 620.2 OVARIAN CYST 11/03/2013 MADL ACTIVITIES SPECIALIST, DARIAN L 620.2 OVARIAN CYST 11/03/2013 RICK PHD, JESSICA Sabillon 620.2 OVARIAN CYST 11/03/2013 MADL ACTIVITIES SPECIALIST, DARIAN L 620.2 OVARIAN CYST 11/03/2013 VA ACTIVITIES SPECIALIST, MISA 620.2 OVARIAN CYST 11/03/2013 RICK PHD, JESSICA Sabillon 620.2 OVARIAN CYST 11/03/2013 AV ACTIVITIES SPECIALIST, MISA 620.2 OVARIAN CYST 11/03/2013 MADL ACTIVITIES SPECIALIST, DARIAN L 620.2 OVARIAN CYST 11/03/2013 ANGEL BARRIENTOS APRN R 620.2 OVARIAN CYST 11/03/2013 MADL ACTIVITIES SPECIALIST, DARIAN L 620.2 OVARIAN CYST 11/03/2013 VA ACTIVITIES SPECIALIST, MISA 620.2 OVARIAN CYST 11/03/2013 MADL ACTIVITIES SPECIALIST, DARIAN L 620.2 OVARIAN CYST 11/03/2013 VA ACTIVITIES SPECIALIST, MISA 620.2 OVARIAN CYST 12/02/2013 LEONARDO DO, ONRA K 787.02 NAUSEA ALONE 12/02/2013 LEONARDO DO, NORA K 787.02 NAUSEA ALONE 12/02/2013 VA ACTIVITIES SPECIALIST, MISA 787.02 NAUSEA ALONE 12/02/2013 MADL ACTIVITIES SPECIALIST, DARIAN L 787.02 NAUSEA ALONE 12/02/2013 RICK PHD, JESSICA Sabillon 787.02 NAUSEA ALONE 12/02/2013 DANIE ACTIVITIES SPECIALISTRAMON BalA L 787.02 NAUSEA ALONE 12/02/2013 VA ACTIVITIES SPECIALIST, MISA 787.02 NAUSEA ALONE 12/02/2013 RICK PHD, JESSICA Sabillon 787.02 NAUSEA ALONE 12/02/2013 VA ACTIVITIES SPECIALIST, MISA 787.02 NAUSEA ALONE 12/02/2013 MADL ACTIVITIES SPECIALIST, DARIAN L 787.02 NAUSEA ALONE 12/02/2013 FREDERIC BARRIENTOS APRNINA R 787.02 NAUSEA ALONE 12/02/2013 MADL ACTIVITIES SPECIALIST, DARIAN L 787.02 NAUSEA ALONE 12/02/2013 VA ACTIVITIES SPECIALIST, MISA 787.02 NAUSEA ALONE 12/02/2013 DANIE ACTIVITIES SPECIALIST, DARIAN L 787.02 NAUSEA ALONE 12/02/2013 VA ACTIVITIES SPECIALIST, MISA 787.02 NAUSEA ALONE 12/30/2013 MISA DE DIOS APRN 300.01 AN PANIC DIS W/O AGORA 12/30/2013 DARIAN HELTON APRN L 300.01 AN PANIC DIS W/O AGORA 12/30/2013 RICK ALBERTO, JESSICA Sabillon 300.01 AN PANIC DIS W/O AGORA 12/30/2013 DARIAN HELTON APRN L 300.01 AN PANIC DIS W/O AGORA 12/30/2013 MISA DE DIOS APRN 300.01 AN PANIC DIS W/O AGORA 12/30/2013 RICK ALBERTO, JESSICA Sabillon 300.01 AN PANIC DIS W/O AGORA 12/30/2013 MISA DE DIOS APRN 300.01 AN PANIC DIS W/O AGORA 12/30/2013 DARIAN HELTON APRN L 300.01 AN PANIC DIS W/O AGORA 12/30/2013 FLOYD COOPER ANGEL R 300.01 AN PANIC DIS W/O AGORA 12/30/2013 RAMON HELTON APRNA L 300.01 AN PANIC DIS W/O AGORA 12/30/2013 MISA DE DIOS APRN 300.01 AN PANIC DIS W/O AGORA 12/30/2013 DARIAN HELTON APRN L 300.01 AN PANIC DIS W/O AGORA 12/30/2013 MISA DE DIOS APRN 300.01 AN PANIC DIS W/O AGORA 12/30/2013 JEANINE SEYMOUR, TRAM T Ot 924.20 CONTUSION OF FOOT 12/30/2013 TRAM SOLORZANO MD T Ot 959.7 LOWER LEG INJURY NOS 12/30/2013 TRAM SOLORZANO MD Ot E000.8 OTHER EXTERNAL CAUSE STATUS 12/30/2013 TRAM SOLORZANO MD Ot E849.0 ACCIDENT IN HOME 12/30/2013 TRAM SOLORZANO MD T Ot E885.9 FALL FROM SLIPPING, TRIPPING, OR STUMBLI 12/31/2013 DARIAN HELTON APRN 525.9 UNSPECIFIED DISORDER OF THE TEETH AND SUPPORTING STRUCTURES 12/31/2013 DARIAN HELTON APRN 719.45 PAIN IN JOINT INVOLVING PELVIC REGION AND THIGH 12/31/2013 RICK ALBERTO, JESSICA Sabillon 525.9 UNSPECIFIED DISORDER OF THE TEETH AND SUPPORTING STRUCTURES 12/31/2013 RICK ALBERTO, JESSICA Sabillon 719.45 PAIN IN JOINT INVOLVING PELVIC REGION AND THIGH 12/31/2013 DARIAN HELTON APRN 525.9 UNSPECIFIED DISORDER OF THE TEETH AND SUPPORTING STRUCTURES 12/31/2013 DARIAN HELTON APRN L 719.45 PAIN IN JOINT INVOLVING PELVIC REGION AND THIGH 12/31/2013 MISA DE DIOS APRN 525.9 UNSPECIFIED DISORDER OF THE TEETH AND SUPPORTING STRUCTURES 12/31/2013 VA COOPER MISA 719.45 PAIN IN JOINT INVOLVING PELVIC REGION AND THIGH 12/31/2013 JESSICA CABRERA PHD 525.9 UNSPECIFIED DISORDER OF THE TEETH AND SUPPORTING STRUCTURES 12/31/2013 JESSICA CABRERA PHD 719.45 PAIN IN JOINT INVOLVING PELVIC REGION AND THIGH 12/31/2013 VA COOPER MISA 525.9 UNSPECIFIED DISORDER OF THE TEETH AND SUPPORTING STRUCTURES 12/31/2013 VA COOPER MISA 719.45 PAIN IN JOINT INVOLVING PELVIC REGION AND THIGH 12/31/2013 EVAL KENNETH DARIAN L 525.9 UNSPECIFIED DISORDER OF THE TEETH AND SUPPORTING STRUCTURES 12/31/2013 DANIE COOPER, DARIAN L 719.45 PAIN IN JOINT INVOLVING PELVIC REGION AND THIGH 12/31/2013 FLOYD COOPER ANGEL R 525.9 UNSPECIFIED DISORDER OF THE TEETH AND SUPPORTING STRUCTURES 12/31/2013 FLOYD COOPER ANGEL R 719.45 PAIN IN JOINT INVOLVING PELVIC REGION AND THIGH 12/31/2013 DANIE COOPER, DARIAN L 525.9 UNSPECIFIED DISORDER OF THE TEETH AND SUPPORTING STRUCTURES 12/31/2013 MADL ACTIVITIES SPECIALIST, DARIAN L 719.45 PAIN IN JOINT INVOLVING PELVIC REGION AND THIGH 12/31/2013 VA COOPER MISA 525.9 UNSPECIFIED DISORDER OF THE TEETH AND SUPPORTING STRUCTURES 12/31/2013 VA COOPER, MISA 719.45 PAIN IN JOINT INVOLVING PELVIC REGION AND THIGH 12/31/2013 EVAL KENNETH, DARIAN L 525.9 UNSPECIFIED DISORDER OF THE TEETH AND SUPPORTING STRUCTURES 12/31/2013 EVAL KENNETH, DARIAN L 719.45 PAIN IN JOINT INVOLVING PELVIC REGION AND THIGH 12/31/2013 VA ACTIVITIES SPECIALIST, MISA 525.9 UNSPECIFIED DISORDER OF THE TEETH AND SUPPORTING STRUCTURES 12/31/2013 VA COOPER, MISA 719.45 PAIN IN JOINT INVOLVING PELVIC REGION AND THIGH 01/05/2014 STELLA SULLIVAN DO Ot 346.90 MIGRAINE UNSPECIFIED W/O INTRACT MGRN W/ 01/05/2014 STELLA SULLIVAN DO Ot 522.5 PERIAPICAL ABSCESS 01/05/2014 STELLA SULLIVAN DO Ot 784.0 HEADACHE 01/10/2014 NOBLE GOMEZ ACTIVITIES SPECIALIST Ot 784.0 HEADACHE 01/24/2014 MADL ACTIVITIES SPECIALIST, DARIAN L 380.4 IMPACTED CERUMEN 01/24/2014 MADL ACTIVITIES SPECIALIST, DARIAN L 780.4 DIZZINESS AND GIDDINESS 01/24/2014 VA ACTIVITIES SPECIALIST, MISA 380.4 IMPACTED CERUMEN 01/24/2014 VA ACTIVITIES SPECIALIST, MISA 780.4 DIZZINESS AND GIDDINESS 01/24/2014 JESSICA CABRERA PHD 380.4 IMPACTED CERUMEN 01/24/2014 RICK ALBERTO, JESSICA Sabillon 780.4 DIZZINESS AND GIDDINESS 01/24/2014 VA ACTIVITIES SPECIALIST, MISA 380.4 IMPACTED CERUMEN 01/24/2014 VA ACTIVITIES SPECIALIST, MISA 780.4 DIZZINESS AND GIDDINESS 01/24/2014 MADL ACTIVITIES SPECIALIST, DARIAN L 380.4 IMPACTED CERUMEN 01/24/2014 MADL ACTIVITIES SPECIALIST, DARIAN L 780.4 DIZZINESS AND GIDDINESS 01/24/2014 FLOYD ACTIVITIES SPECIALIST, ANGEL R 380.4 IMPACTED CERUMEN 01/24/2014 FLOYD ACTIVITIES SPECIALIST, ANGEL R 780.4 DIZZINESS AND GIDDINESS 01/24/2014 MADL ACTIVITIES SPECIALIST, DARIAN L 380.4 IMPACTED CERUMEN 01/24/2014 MADL ACTIVITIES SPECIALIST, DARIAN L 780.4 DIZZINESS AND GIDDINESS 01/24/2014 VA ACTIVITIES SPECIALIST, MISA 380.4 IMPACTED CERUMEN 01/24/2014 VA ACTIVITIES SPECIALIST, MISA 780.4 DIZZINESS AND GIDDINESS 01/24/2014 MADL ACTIVITIES SPECIALIST, DARIAN L 380.4 IMPACTED CERUMEN 01/24/2014 MADL ACTIVITIES SPECIALIST, DARIAN L 780.4 DIZZINESS AND GIDDINESS 01/24/2014 VA ACTIVITIES SPECIALIST, MISA 380.4 IMPACTED CERUMEN 01/24/2014 VA ACTIVITIES SPECIALIST, MISA 780.4 DIZZINESS AND GIDDINESS 01/28/2014 JESSICA CABRERA PHD 300.21 AN PANIC DIS W AGORA 01/28/2014 MISA DE DIOS APRN 300.21 AN PANIC DIS W AGORA 01/28/2014 MADL ACTIVITIES SPECIALIST, DARIAN L 300.21 AN PANIC DIS W AGORA 01/28/2014 FLOYD ACTIVITIES SPECIALIST, ANGEL R 300.21 AN PANIC DIS W AGORA 01/28/2014 MADL ACTIVITIES SPECIALIST, DARIAN L 300.21 AN PANIC DIS W AGORA 01/28/2014 VA ACTIVITIES SPECIALIST, MISA 300.21 AN PANIC DIS W AGORA 01/28/2014 MADL ACTIVITIES SPECIALIST, DARIAN L 300.21 AN PANIC DIS W AGORA 01/28/2014 VA ACTIVITIES SPECIALIST, MISA 300.21 AN PANIC DIS W AGORA 03/16/2014 Ot 643.03 03/16/2014 RAOUL GARCIA Ot 521.00 UNSPEC DENTAL CARIES 03/16/2014 RAOUL GARCIA Ot 525.9 DENTAL DISORDER NOS 07/18/2016 Ot 643.03 MILD HYPEREMESIS- ANTEPAR 05/09/2018 DARIAN HELTON STUDENT COUNSELLOR Ot R10.11 RIGHT UPPER QUADRANT PAIN 05/09/2018 BRIDGETTE MERRILL DO Ot F19.10 OTHER PSYCHOACTIVE SUBSTANCE ABUSE, UNCO 05/09/2018 BRIDGETTE MERRILL DO Ot F41.9 ANXIETY DISORDER, UNSPECIFIED 05/09/2018 BRIDGETTE MERRILL DO Ot G43.909 MIGRAINE, UNSP, NOT INTRACTABLE, WITHOUT 05/09/2018 BRIDGETTE MERRILL DO Ot J45.909 UNSPECIFIED ASTHMA, UNCOMPLICATED 05/09/2018 BRIDGETTE MERRILL DO Ot R51 HEADACHE 05/09/2018 BRIDGETTE MERRILL DO Ot Z86.69 PERSONAL HISTORY OF DIS OF THE NERVOUS S 05/09/2018 BRIDGETTE MERRILL DO Ot Z87.448 PERSONAL HISTORY OF OTHER DISEASES OF UR 05/09/2018 BRIDGETTE MERRILL DO Ot Z90.49 ACQUIRED ABSENCE OF OTHER SPECIFIED PART 05/09/2018 BRIDGETTE MERRILL DO Ot Z98.51 TUBAL LIGATION STATUS 05/09/2018 BRIDGETTE MERRILL DO Ot Z98.890 OTHER SPECIFIED POSTPROCEDURAL STATES 05/11/2018 BRIDGETTE MERRILL DO Ot F19.10 OTHER PSYCHOACTIVE SUBSTANCE ABUSE, UNCO 05/11/2018 BRIDGETTE MERRILL DO Ot F41.9 ANXIETY DISORDER, UNSPECIFIED 05/11/2018 BRIDGETTE MERRILL DO Ot G43.909 MIGRAINE, UNSP, NOT INTRACTABLE, WITHOUT 05/11/2018 [place]ARFIELD DO, BRIDGETTE K Ot J45.909 UNSPECIFIED ASTHMA, UNCOMPLICATED 05/11/2018 GARFIELD BRIDGETTE BOATENG K Ot R51 HEADACHE 05/11/2018 GARFIELD SALMA BOATENGA K Ot Z86.69 PERSONAL HISTORY OF DIS OF THE NERVOUS S 05/11/2018 BRIDGETTE MERRILL DO K Ot Z87.448 PERSONAL HISTORY OF OTHER DISEASES OF UR 05/11/2018 GARFIELD BRIDGETTE BOATENG K Ot Z90.49 ACQUIRED ABSENCE OF OTHER SPECIFIED PART 05/11/2018 GARFIELD DO, BRIDGETTE K Ot Z98.51 TUBAL LIGATION STATUS 05/11/2018 GARFIELD DO, BRIDGETTE K Ot Z98.890 OTHER SPECIFIED POSTPROCEDURAL STATES 05/18/2018 GARFIELD DO, BRIDGETTE K Ot F12.10 CANNABIS ABUSE, UNCOMPLICATED 05/18/2018 GARFIELD DO, BRIDGETTE K Ot F15.10 OTHER STIMULANT ABUSE, UNCOMPLICATED 05/18/2018 GARFIELD DO, BRIDGETTE K Ot F41.9 ANXIETY DISORDER, UNSPECIFIED 05/18/2018 [place] DO BRIDGETTE K Ot G43.909 MIGRAINE, UNSP, NOT INTRACTABLE, WITHOUT 05/18/2018 GARFIELD DO, BRIDGETTE K Ot J45.909 UNSPECIFIED ASTHMA, UNCOMPLICATED 05/18/2018 GARFIELD DO, BRIDGETTE K Ot R10.32 LEFT LOWER QUADRANT PAIN 05/18/2018 GARFIELD BRIDGETTE K Ot Z87.448 PERSONAL HISTORY OF OTHER DISEASES OF UR 05/18/2018 GARFIELD SALMA BOATENGA K Ot Z90.49 ACQUIRED ABSENCE OF OTHER SPECIFIED PART 05/18/2018 [place] DO BRIDGETTE K Ot Z98.51 TUBAL LIGATION STATUS 05/18/2018 GARFIELD DO, BRIDGETTE K Ot Z98.890 OTHER SPECIFIED POSTPROCEDURAL STATES 05/20/2018 GARFIELD DO, BRIDGETTE K Ot F12.10 CANNABIS ABUSE, UNCOMPLICATED 05/20/2018 GARFIELD DO, BRIDGETTE K Ot F15.10 OTHER STIMULANT ABUSE, UNCOMPLICATED 05/20/2018 GARFIELD DO, BRIDGETTE K Ot F41.9 ANXIETY DISORDER, UNSPECIFIED 05/20/2018 GARFIELD DO, BRIDGETTE K Ot G43.909 MIGRAINE, UNSP, NOT INTRACTABLE, WITHOUT 05/20/2018 GARFIELD DO, BRIDGETTE K Ot J45.909 UNSPECIFIED ASTHMA, UNCOMPLICATED 05/20/2018 BRIDGETTE MERRILL DO Ot R10.32 LEFT LOWER QUADRANT PAIN 05/20/2018 BRIDGETTE MERRILL DO Ot Z87.448 PERSONAL HISTORY OF OTHER DISEASES OF UR 05/20/2018 BRIDGETTE MERRILL DO Ot Z90.49 ACQUIRED ABSENCE OF OTHER SPECIFIED PART 05/20/2018 GARFIELD BRIDGETTE BOATENG Ot Z98.51 TUBAL LIGATION STATUS 05/20/2018 GARFIELD BRIDGETTE BOATENG Ot Z98.890 OTHER SPECIFIED POSTPROCEDURAL STATES 05/28/2018 BRIDGETTE MERRILL DO Ot F12.10 CANNABIS ABUSE, UNCOMPLICATED 05/28/2018 BRIDGETTE MERRILL DO Ot F15.10 OTHER STIMULANT ABUSE, UNCOMPLICATED 05/28/2018 BRIDGETTE MERRILL DO Ot F41.9 ANXIETY DISORDER, UNSPECIFIED 05/28/2018 GARFIELD BRIDGETTE BOATENG Ot G43.909 MIGRAINE, UNSP, NOT INTRACTABLE, WITHOUT 05/28/2018 BRIDGETTE MERRILL DO Ot J45.909 UNSPECIFIED ASTHMA, UNCOMPLICATED 05/28/2018 GAR[place] BRIDGETTE BOATENG Ot R10.32 LEFT LOWER QUADRANT PAIN 05/28/2018 GARFIELD BRIDGETTE BOATENG Ot Z87.448 PERSONAL HISTORY OF OTHER DISEASES OF UR 05/28/2018 BRIDGETTE MERRILL DO Ot Z90.49 ACQUIRED ABSENCE OF OTHER SPECIFIED PART 05/28/2018 BRIDGETTE MERRILL DO Ot Z98.51 TUBAL LIGATION STATUS 05/28/2018 GARFIELD BRIDGETTE BOATENG Ot Z98.890 OTHER SPECIFIED POSTPROCEDURAL STATES 08/29/2018 DARIAN HELTON STUDENT COUNSELLOR Ot R10.11 RIGHT UPPER QUADRANT PAIN Procedures Code [place] [address] ROUTINE VENIPUNCTURE 12/30/2011 13015 ESR/SED RATE 12/30/2011 28967 CBC 12/30/2011 54616 CMP 12/30/2011 6373683 GFR CALC (RESULT ONLY) 12/30/2011 45958 CRP 12/31/2011 67997 VITAMIN D 25-HYDROXY (D2,D3, TOTAL) 12/31/2011 35445 VIT B 12 12/31/2011 20884 FOLATE 12/31/2011 94696 TSH 12/31/2011 PHYSI PHYSICAL THERAPY, VIA [facility] 07/17/2012 PHYSICAL PHYSICAL THERAPY, VIA [facility] 08/19/2012 23197 URINE DRUG SCREEN (IN-HOUSE) 08/25/2012 10066 URINE AMPHETAMINE GC/MS 08/25/2012 85228 PSYCH DIAG EVAL W/MED SRVCS 09/01/2012 32281 PSYCHO TESTING 1 HR W COMP 12/02/2012 64610 URINE DRUG SCREEN (IN-HOUSE) 12/15/2012 25348 GC/CHLAM PROBE (STATE) 12/21/2012 70698 URINE TEST (IN-HOUSE) 12/21/2012 77045 TRICHOMONAS (IN-HOUSE) 12/21/2012 27668 CULTURE UROGENITAL 12/22/2012 14054 PSYTX PT&/FAMILY 45 MINUTES 02/02/2013 54337 PSYTX PT&/FAMILY 45 MINUTES 02/18/2013 37913 PSYTX PT&/FAMILY 45 MINUTES 03/23/2013 66824 PSYTX PT&/FAMILY 45 MINUTES 05/12/2013 65706 ROUTINE VENIPUNCTURE 06/10/2013 07072 UA W/ CULTURE IF INDICATED 06/10/2013 45267 A1C (IN-HOUSE) 06/10/2013 37723 XRAY LUMBAR SPINE 2 OR 3 VIEWS 06/10/2013 68183 XRAY KNEE RIGHT 1 OR 2 VIEWS 06/10/2013 3774860 GFR CALC (RESULT ONLY) 06/10/2013 27149 CMP 06/10/2013 62898 CBC 06/10/2013 16575 VIT B 12 06/10/2013 04713 TSH 06/10/2013 98684 GC/CHLAM URINE (STATE) 06/15/2013 83253 PSYTX PT&/FAMILY 45 MINUTES 06/16/2013 88392 PULMONARY FUNCTION TEST (IN-HOUSE) 07/02/2013 61631 PULMONARY EDUCATION 07/02/2013 32138 JOINT INJECTION- LARGE JOINT (SPECIFY MEDCIN DESCRIPTION) 12/02/2013 68558 JOINT INJECTION- LARGE JOINT (SPECIFY MEDCIN DESCRIPTION) 12/02/2013 J1040 DEPO MEDROL 80 MG INJ 12/02/2013 53752 PSYTX PT&/FAMILY 45 MINUTES 01/05/2014 12050 ROUTINE VENIPUNCTURE 01/24/2014 62015 XRAY LUMBAR SPINE 2 OR 3 VIEWS 01/24/2014 64325 XRAY HIP RIGHT UNILATERAL MIN 2 VIEWS 01/24/2014 20988 CMP 01/24/2014 01322 CBC 01/24/2014 02394 PSYTX PT&/FAMILY 45 MINUTES 01/31/2014 68356 ROUTINE VENIPUNCTURE 03/01/2014 67386 UA W/ CULTURE IF INDICATED 03/01/2014 89609 TEST, URINE (IN-HOUSE) 03/01/2014 04204 CBC 03/02/2014 52926 CMP 03/02/2014 8144620 GFR CALC (RESULT ONLY) 03/02/2014 99171 STREP A (IN-HOUSE) 03/28/2014 Results Test Result Range Urine drug screening test - 05/09/18 02:20 [...] NEGATIVE NEGATIVE Urine propoxyphene detection NEGATIVE NEGATIVE Urine beta human chorionic gonadotropin (hCG) measurement - 05/18/18 01:19 Urine beta human chorionic gonadotropin (hCG) measurement NEGATIVE NEGATIVE Complete urinalysis with reflex to culture - 05/18/18 01:19 Urine color determination YELLOW NRG Urine clarity determination CLEAR NRG Urine pH measurement by test strip 6 5-9 Specific gravity of urine by test strip 1.010 1.016-1.022 Urine protein assay by test strip, semi-quantitative NEGATIVE NEGATIVE Urine glucose detection by automated test strip NEGATIVE NEGATIVE Erythrocytes detection in urine sediment by light microscopy 1+ NEGATIVE Urine ketones detection by automated test strip NEGATIVE NEGATIVE Urine nitrite detection by test strip NEGATIVE NEGATIVE Urine total bilirubin detection by test strip NEGATIVE NEGATIVE Urine urobilinogen measurement by automated test strip (mass/volume) NORMAL NORMAL Urine leukocyte esterase detection by dipstick 1+ NEGATIVE Automated urine sediment erythrocyte count by microscopy (number/high power field) NONE NRG Automated urine sediment leukocyte count by microscopy (number/high power field) RARE NRG Bacteria detection in urine sediment by light microscopy TRACE NRG Squamous epithelial cells detection in urine sediment by light microscopy 10-25 NRG Crystals detection in urine sediment by light microscopy NONE NRG Casts detection in urine sediment by light microscopy NONE NRG Mucus detection in urine sediment by light microscopy NEGATIVE NRG Complete urinalysis with reflex to culture NO NRG Urine drug screening test - 05/18/18 01:19 Urine phencyclidine detection by screening method NEGATIVE NEGATIVE Urine benzodiazepines detection by screening method NEGATIVE NEGATIVE Urine cocaine detection NEGATIVE NEGATIVE Urine amphetamines detection by screening method NEGATIVE NEGATIVE Urine methamphetamine detection by screening method NEGATIVE NEGATIVE Urine cannabinoids detection by screening method NEGATIVE NEGATIVE Urine opiates detection by screening method NEGATIVE NEGATIVE Urine barbiturates detection NEGATIVE NEGATIVE Screening urine tricyclic antidepressants detection NEGATIVE NEGATIVE Urine methadone detection by screening method NEGATIVE NEGATIVE Urine oxycodone detection NEGATIVE NEGATIVE Urine propoxyphene detection NEGATIVE NEGATIVE Complete blood count (CBC) with automated white blood cell (WBC) differential - 05/18/18 02:15 Blood leukocytes automated count (number/volume) 9.2 10*3/uL 4.3-11.0 Blood erythrocytes automated count (number/volume) 4.79 10*6/uL 4.35-5.85 Venous blood hemoglobin measurement (mass/volume) 12.8 g/dL 11.5-16.0 Blood hematocrit (volume fraction) 39 % 35-52 Automated erythrocyte mean corpuscular volume 80 [foz_us] 80-99 Automated erythrocyte mean corpuscular hemoglobin (mass per erythrocyte) 27 pg 25-34 Automated erythrocyte mean corpuscular hemoglobin concentration measurement (mass/volume) 33 g/dL 32-36 Automated erythrocyte distribution width ratio 14.4 % 10.0- 14.5 Automated blood platelet count (count/volume) 335 10*3/uL 130-400 Automated blood platelet mean volume measurement 9.7 [foz_us] 7.4-10.4 Automated blood neutrophils/100 leukocytes 68 % 42-75 Automated blood lymphocytes/100 leukocytes 22 % 12-44 Blood monocytes/100 leukocytes 9 % 0-12 Automated blood eosinophils/100 leukocytes 1 % 0-10 Automated blood basophils/100 leukocytes 0 % 0-10 Blood neutrophils automated count (number/volume) 6.3 10*3 1.8-7.8 Blood lymphocytes automated count (number/volume) 2.0 10*3 1.0-4.0 Blood monocytes automated count (number/volume) 0.8 10*3 0.0- 1.0 Automated eosinophil count 0.1 10*3/uL 0.0-0.3 Automated blood basophil count (count/volume) 0.0 10*3/uL 0.0-0.1 Comprehensive metabolic panel - 02/11/19 02:15 Serum or plasma sodium measurement (moles/volume) 140 mmol/L 135-145 Serum or plasma potassium measurement (moles/volume) 3.7 mmol/L 3.6-5.0 Serum or plasma chloride measurement (moles/volume) 106 mmol/L 98-107 Carbon dioxide 21 mmol/L 21-32 Serum or plasma anion gap determination (moles/volume) 13 mmol/L 5-14 Serum or plasma urea nitrogen measurement (mass/volume) 11 mg/dL 7-18 Serum or plasma creatinine measurement (mass/volume) 0.79 mg/dL 0.60-1.30 Serum or plasma urea nitrogen/creatinine mass ratio 14 NRG Serum or plasma creatinine measurement with calculation of estimated glomerular filtration rate > NRG Serum or plasma glucose measurement (mass/volume) 95 mg/dL 70-105 Serum or plasma calcium measurement (mass/volume) 9.2 mg/dL 8.5-10.1 Serum or plasma total bilirubin measurement (mass/volume) 0.3 mg/dL 0.1-1.0 Serum or plasma alkaline phosphatase measurement (enzymatic activity/volume) 54 U/L 40-136 Serum or plasma aspartate aminotransferase measurement (enzymatic activity/volume) 16 U/L 5-34 Serum or plasma alanine aminotransferase measurement (enzymatic activity/volume) 14 U/L 0-55 Serum or plasma protein measurement (mass/volume) 7.7 g/dL 6.4-8.2 Serum or plasma albumin measurement (mass/volume) 4.4 g/dL 3.2-4.5 CALCIUM CORRECTED 8.9 mg/dL 8.5-10.1 Serum or plasma amylase measurement (enzymatic activity/volume) - 05/18/18 02:15 Serum or plasma amylase measurement (enzymatic activity/volume) 55 U/L 25-125 Lipase - 05/18/18 02:15 Lipase 51 U/L 8-78 CULTURE, URINE - 08/07/18 14:13 CULTURE, URINE, ROUTINE SEE NOTE NRG Complete blood count (CBC) with automated white blood cell (WBC) differential - 08/29/18 02:35 Blood leukocytes automated count (number/volume) 6.4 10*3/uL 4.3-11.0 Blood erythrocytes automated count (number/volume) 4.35 10*6/uL 4.35-5.85 Venous blood hemoglobin measurement (mass/volume) 10.1 g/dL 11.5-16.0 Blood hematocrit (volume fraction) 33 % 35-52 Automated erythrocyte mean corpuscular volume 75 [foz_us] 80-99 Automated erythrocyte mean corpuscular hemoglobin (mass per erythrocyte) 23 pg 25-34 Automated erythrocyte mean corpuscular hemoglobin concentration measurement (mass/volume) 31 g/dL 32-36 Automated erythrocyte distribution width ratio 15.2 % 10.0- 14.5 Automated blood platelet count (count/volume) 332 10*3/uL 130-400 Automated blood platelet mean volume measurement 10.2 [foz_us] 7.4-10.4 Automated blood neutrophils/100 leukocytes 56 % 42-75 Automated blood lymphocytes/100 leukocytes 32 % 12-44 Blood monocytes/100 leukocytes 9 % 0-12 Automated blood eosinophils/100 leukocytes 1 % 0-10 Automated blood basophils/100 leukocytes 1 % 0-10 Blood neutrophils automated count (number/volume) 3.6 10*3 1.8-7.8 Blood lymphocytes automated count (number/volume) 2.1 10*3 1.0-4.0 Blood monocytes automated count (number/volume) 0.6 10*3 0.0- 1.0 Automated eosinophil count 0.1 10*3/uL 0.0-0.3 Automated blood basophil count (count/volume) 0.0 10*3/uL 0.0-0.1 Comprehensive metabolic panel - 08/29/18 02:35 Serum or plasma sodium measurement (moles/volume) 139 mmol/L 135-145 Serum or plasma potassium measurement (moles/volume) 4.2 mmol/L 3.6-5.0 Serum or plasma chloride measurement (moles/volume) 108 mmol/L 98-107 Carbon dioxide 20 mmol/L 21-32 Serum or plasma anion gap determination (moles/volume) 11 mmol/L 5-14 Serum or plasma urea nitrogen measurement (mass/volume) 14 mg/dL 7-18 Serum or plasma creatinine measurement (mass/volume) 0.86 mg/dL 0.60-1.30 Serum or plasma urea nitrogen/creatinine mass ratio 16 NRG Serum or plasma creatinine measurement with calculation of estimated glomerular filtration rate > NRG Serum or plasma glucose measurement (mass/volume) 85 mg/dL 70-105 Serum or plasma calcium measurement (mass/volume) 9.1 mg/dL 8.5-10.1 Serum or plasma total bilirubin measurement (mass/volume) 0.2 mg/dL 0.1-1.0 Serum or plasma alkaline phosphatase measurement (enzymatic activity/volume) 50 U/L 40-136 Serum or plasma aspartate aminotransferase measurement (enzymatic activity/volume) 23 U/L 5-34 Serum or plasma alanine aminotransferase measurement (enzymatic activity/volume) 13 U/L 0-55 Serum or plasma protein measurement (mass/volume) 6.8 g/dL 6.4-8.2 Serum or plasma albumin measurement (mass/volume) 3.9 g/dL 3.2-4.5 CALCIUM CORRECTED 9.2 mg/dL 8.5-10.1 Serum or plasma choriogonadotropin ( test) detection - 08/29/18 02:35 Serum or plasma choriogonadotropin ( test) detection NEGATIVE NEGATIVE Complete urinalysis with reflex to culture - 08/29/18 02:45 Urine color determination RED NRG Urine clarity determination BLOODY NRG Urine pH measurement by test strip 5 5-9 Specific gravity of urine by test strip 1.025 1.016-1.022 Urine protein assay by test strip, semi-quantitative 4+ NEGATIVE Urine glucose detection by automated test strip NEGATIVE NEGATIVE Erythrocytes detection in urine sediment by light microscopy 5+ NEGATIVE Urine ketones detection by automated test strip 1+ NEGATIVE Urine nitrite detection by test strip NEGATIVE NEGATIVE Urine total bilirubin detection by test strip NEGATIVE NEGATIVE Urine urobilinogen measurement by automated test strip (mass/volume) NORMAL NORMAL Urine leukocyte esterase detection by dipstick 2+ NEGATIVE Automated urine sediment erythrocyte count by microscopy (number/high power field) TNTC NRG Automated urine sediment leukocyte count by microscopy (number/high power field) RARE NRG Bacteria detection in urine sediment by light microscopy TRACE NRG Squamous epithelial cells detection in urine sediment by light microscopy RARE NRG Crystals detection in urine sediment by light microscopy NONE NRG Casts detection in urine sediment by light microscopy NONE NRG Mucus detection in urine sediment by light microscopy NEGATIVE NRG Complete urinalysis with reflex to culture NO NRG Encounters ACCT No. Visit Date/Time Discharge Status Pt. Type Provider Facility Loc./Unit Complaint [id number] 10/06/2018 16:15:00 ACT [facility] [id number] 08/07/2018 10:40:00 Document Registration [id number] 05/20/2014 08:21:00 05/20/2014 23:59:59 CLS Outpatient [facility] SPECIAL[facility] L [id number] 05/17/2014 14:31:00 05/17/2014 23:59:59 [facility] MISA [id number] 05/17/2014 14:31:00 05/17/2014 23:59:59 CLS [facility] MISA [id number] 03/28/2014 13:54:00 03/28/2014 23:59:59 CLS Outpatient [facility] [id number] 03/01/2014 17:50:00 03/01/2014 23:59:59 CLS Outpatient [facility] SPECIALISTFREDERICANGEL R [id number] 02/24/2014 10:41:00 02/24/2014 23:59:59 CLS Outpatient [facility] SPECIAL[facility] L [id number] 01/31/2014 14:46:00 01/31/2014 23:59:59 CLS Outpatient JESSICA CABRERA PHD [id number] 01/28/2014 13:28:00 01/28/2014 23:59:59 CLS [facility] MISA [id number] 01/28/2014 13:28:00 01/28/2014 23:59:59 CLS Outpatient [facility] MISA [id number] 01/24/2014 11:02:00 01/24/2014 23:59:59 CLS Outpatient [facility]IVIT[facility] SPECIALISTDARIAN L [id number] 01/05/2014 18:04:00 01/05/2014 23:59:59 CLS Outpatient JESSICA CABRERA PHD [id number] 12/31/2013 14:16:00 12/31/2013 23:59:59 CLS Outpatient [facility] SPECIAL[facility] L [id number] 12/30/2013 10:39:00 12/30/2013 23:59:59 CLS [facility] MISA [id number] 12/02/2013 12:08:00 12/02/2013 23:59:59 CLS Outpatient NORA LEONARDO DO [id number] 11/25/2013 15:41:00 11/25/2013 23:59:59 CLS Outpatient NORA LEONARDO DO [id number] 11/10/2013 00:00:00 11/10/2013 23:59:59 CLS Outpatient JORDEN DONORA [id number] 11/03/2013 10:37:00 11/03/2013 23:59:59 CLS Outpatient DARIAN HELTON APRN [id number] 10/12/2013 13:49:00 10/12/2013 23:59:59 CLS Outpatient [facility] JAVIER COOPERETTE [id number] 10/12/2013 13:49:00 10/12/2013 23:59:59 CLS Outpatient [facility] JAVIER COOPERETTE [id number] 09/16/2013 10:45:00 09/16/2013 23:59:59 CLS Outpatient JEREMIE ALEX DDS [id number] 09/09/2013 11:08:00 09/09/2013 23:59:59 CLS Outpatient [facility] KENNETH MISA [id number] 08/10/2013 17:02:00 08/10/2013 23:59:59 CLS Outpatient BALTA PEDRAZA MD [id number] 08/10/2013 17:02:00 08/10/2013 23:59:59 CLS Outpatient [facility] JAV[facility] COOPERETTE [id number] 08/09/2013 10:41:00 08/09/2013 23:59:59 CLS Outpatient NORA LEONARDO DO [id number] 08/05/2013 13:05:00 08/05/2013 23:59:59 CLS Outpatient NORA LEONARDO DO [id number] 07/02/2013 13:45:00 07/02/2013 23:59:59 CLS Outpatient NORA LEONARDO DO [place] [id number] 06/15/2013 13:49:00 06/15/2013 23:59:59 CLS Outpatient JESSICA CABRERA PHD [id number] 06/15/2013 13:26:00 06/15/2013 23:59:59 CLS Outpatient BRIANDA LOUIS APRN [id number] 06/10/2013 13:05:00 06/10/2013 23:59:59 CLS Outpatient DOMINIC BAL MD [id number] 06/04/2013 13:42:00 06/04/2013 23:59:59 CLS Outpatient DOMINIC BAL MD [id number] 05/11/2013 11:02:00 05/11/2013 23:59:59 CLS Outpatient SULAIMANKAHLIL JESSICA ALBERTO [id number] 03/22/2013 10:55:00 03/22/2013 23:59:59 CLS Outpatient JESSICA CABRERA PHD [id number] 03/11/2013 11:08:00 03/11/2013 23:59:59 CLS Outpatient JOSHUA LOUIS APRNANTONIA Pina [id number] 02/17/2013 14:50:00 02/17/2013 23:59:59 CLS Outpatient JESSICA CABRERA PHD [id number] 02/01/2013 12:57:00 02/01/2013 23:59:59 CLS Outpatient JESSICA CABRERA PHD [id number] 12/21/2012 14:27:00 12/21/2012 23:59:59 CLS Outpatient KERI ALBERT APRNPETER Sabillon [id number] 12/15/2012 10:04:00 12/15/2012 23:59:59 CLS Outpatient MALACHI LOUIS APRNTOM Pina [id number] 04/23/2012 15:04:00 04/23/2012 23:59:59 CLS Outpatient BALBINA DELACRUZ APRN [id number] 12/30/2011 10:59:00 12/30/2011 23:59:59 CLS Outpatient [id number] 12/15/2012 10:04:00 Document Registration [id number] 12/01/2012 11:52:00 Document Registration [id number] 08/26/2012 09:00:00 Document Registration [id number] 08/25/2012 10:07:00 Document Registration [id number] 08/19/2012 15:31:00 Document Registration [id number] 07/17/2012 15:28:00 Document Registration [id number] 08/29/2018 02:26:00 08/29/2018 04:17:00 DIS Emergency DYLON PETIT MD [facility] ER PASSED OUT [id number] 05/18/2018 01:12:00 05/18/2018 03:25:00 DIS Emergency BRIDGETTE MERRILL DO [facility] ER ABD PAIN [id number] 05/09/2018 01:20:00 05/09/2018 03:32:00 DIS Emergency BRIDGETTE MERRILL DO [facility] ER MIGRAINE,VOMITING [id number] 07/24/2016 14:09:00 07/24/2016 23:59:59 CLS Preadmit DARIAN HELTON STUDENT COUNSELLOR [facility] CARD R10.11 [id number] 07/18/2016 07:26:00 07/18/2016 23:59:59 CLS Outpatient DARIAN HELTON STUDENT COUNSELLOR [facility] RAD RUQ PAIN [id number] 03/16/2014 21:06:00 03/16/2014 22:11:00 DIS Emergency RAOUL GARCIA [facility] ER DENTAL PAIN [id number] 01/10/2014 20:15:00 01/10/2014 21:20:00 DIS Emergency NOBLE GOMEZ APRN [facility] ER HEADACHE [id number] 01/05/2014 21:45:00 01/05/2014 23:13:00 DIS Emergency STELLA SULLIVAN DO [facility] ER HEADACHE [id number] 12/29/2013 23:31:00 12/30/2013 00:51:00 DIS Emergency TRAM SOLORZANO MD [facility] ER FELL-RT HIP PAIN-RT FOOT SWELLING [id number] 11/01/2013 19:35:00 11/01/2013 22:05:00 DIS Emergency NOBLE GOMEZ APRN [facility] ER ABD,LOW BACK PAIN [id number] 10/03/2013 17:06:00 10/03/2013 19:47:00 DIS Emergency NOBLE GOMEZ APRN [facility] ER ABD PAIN [id number] 03/17/2013 19:40:00 03/17/2013 20:46:00 DIS Emergency NOBLE GOMEZ APRN [facility] ER R WRIST PAIN; INJ AT HOME [id number] 02/17/2013 20:29:00 02/17/2013 22:39:00 DIS Emergency TRAM SOLORZANO MD [facility] ER HEADACHE [id number] 01/06/2013 21:14:00 01/06/2013 22:10:00 DIS Emergency NOBLE GOMEZ APRN [facility] ER EYE PAIN FROM INJ [id number] 12/21/2012 15:27:00 12/21/2012 23:12:00 DIS Emergency BRIDGETTE MERRILL DO [facility] ER NECK PAIN,HEAD PAIN FROM INJ [id number] 11/03/2012 16:13:00 11/03/2012 18:30:00 DIS Emergency RAOUL GARCIA [facility] ER HEAD PAIN FROM INJ [id number] 08/22/2012 22:31:00 08/23/2012 01:22:00 DIS Emergency JEANINE SEYMOUR, TRAM Garibay [facility] ER BACK PAIN [id number] 02/12/2012 08:28:00 Document Registration [id number] 01/17/2012 19:30:00 Document Registration [id number] 12/04/2011 11:58:00 Document Registration [id number] 11/24/2011 16:57:00 Document Registration [id number] 07/06/2011 21:59:00 Document Registration [id number] 06/29/2011 18:07:00 Document Registration [id number] 06/27/2011 22:38:00 Document Registration [id number] 07/27/2010 18:47:00 Document Registration
[2018-10-08 19:55] LABS: BASOPHILS # (AUTO) 0.1 10^3/uL (0.0-0.1); BASOPHILS % (AUTO) 1 % (0-10); EOSINOPHILS # (AUTO) 0.1 10^3/uL (0.0-0.3); EOSINOPHILS % (AUTO) 1 % (0-10); HEMATOCRIT 35 % (35-52); LYMPHOCYTES # (AUTO) 1.6 X 10^3 (1.0-4.0); LYMPHOCYTES % (AUTO) 22 % (12-44); MEAN CORPUSCULAR HEMOGLOBIN 23 PG (25-34); MEAN CORPUSCULAR HGB CONC 31 G/DL (32-36); MEAN CORPUSCULAR VOLUME 74 FL (80-99); MEAN PLATELET VOLUME 10.4 FL (7.4-10.4); MONOCYTES # (AUTO) 0.9 X 10^3 (0.0-1.0); MONOCYTES % (AUTO) 12 % (0-12); NEUTROPHILS # (AUTO) 4.7 X 10^3 (1.8-7.8); NEUTROPHILS % (AUTO) 64 % (42-75); PLATELET COUNT 336 10^3/uL (130-400); RED CELL DISTRIBUTION WIDTH 16.3 % (10.0-14.5); WHITE BLOOD COUNT 7.3 10^3/uL (4.3-11.0)
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
[2018-10-08] MEDS ORDERED: fentaNYL INJECTION 100 MCG/2 ML AMP IVP ONE ×2 (20:00→20:45)
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
[2018-10-08 20:13] LABS: ALANINE AMINOTRANSFERASE 12 U/L (0-55); ALBUMIN 4.2 GM/DL (3.2-4.5); ALKALINE PHOSPHATASE 51 U/L (40-136); BILIRUBIN,TOTAL 0.2 MG/DL (0.1-1.0); BUN/CREATININE RATIO 16; CALCIUM 9.3 MG/DL (8.5-10.1); CARBON DIOXIDE 21 MMOL/L (21-32); CHLORIDE 107 MMOL/L (98-107); CREATININE SERUM 0.87 MG/DL (0.60-1.30); GFR ESTIMATED > 60; GLUCOSE 110 MG/DL (70-105); SODIUM 137 MMOL/L (135-145); TOTAL PROTEIN 6.9 GM/DL (6.4-8.2)
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
[2018-10-08] MEDS ORDERED: ACHD5005 PO (21:10)
[2018-10-08] MEDS ORDERED: CYCL10TA9 PO (21:10)
[2018-10-08] MEDS ORDERED: KETOROLAC 30 MG/ML VIAL IVP ONE (21:15)
[2018-10-08 21:29] LABS: BILIRUBIN,URINE NEGATIVE (NEGATIVE); CLARITY,URINE CLEAR; COLOR,URINE YELLOW; GLUCOSE, URINE (UA) NEGATIVE (NEGATIVE); KETONES,URINE NEGATIVE (NEGATIVE); LEUKOCYTE ESTERASE ,URINE NEGATIVE (NEGATIVE); NITRITE,URINE NEGATIVE (NEGATIVE); PH,URINE 7 (5-9); PROTEIN,URINE 1+ (NEGATIVE); UROBILINOGEN,URINE NORMAL (NORMAL)
[2018-10-08 21:41] LABS: BACTERIA,URINE TRACE /HPF; WBC,URINE 0-2 /HPF
[2018-10-08] MEDS ORDERED: RX-HYDROCODONE/APAP 5/325 MG #4 TAB PK PO PRN (22:00)
[2018-10-08 22:06] VITALS: BP 132/79
== END 2018-10-08 22:06 | disposition home or self-care (01) ==
LOC: EDUNIT# 19:19 → ER 19:20
DX: S00.93XA Contusion of unspecified part of head, initial encounter (principal); S60.222A Contusion of left hand, initial encounter; M25.552 Pain in left hip; J45.998 Other asthma; G43.909 Migraine, unspecified, not intractable, without status migrainosus; F41.9 Anxiety disorder, unspecified; R40.2142 Coma scale, eyes open, spontaneous, at arrival to emergency department; R40.2252 Coma scale, best verbal response, oriented, at arrival to emergency department; R40.2362 Coma scale, best motor response, obeys commands, at arrival to emergency department; Z90.49 Acquired absence of other specified parts of digestive tract; Z98.51 Tubal ligation status; V28.4XXA Motorcycle driver injured in noncollision transport accident in traffic accident, initial encounter
CPT/HCPCS: 36415; 70450; 70486; 71045; 72125; 72170; 73130; 74177; 80053; 80320; 81000; 84703; 85025

== ENCOUNTER 2018-10-19 22:02 | Emergency (ER) | payer SELFPAY ==
[~2018-10-19] VITALS: Ht 172.7 cm; Wt 103.4 kg
--- OUTSIDE RECORDS SUMMARY | 2018-10-19 22:08 | XMS REPORT | Clinical Summary ---
Author Author [facility] Organization [facility] Address Unknown Phone Unavailable Care Team Providers Care Skein Winder Name Role Phone PCP Unavailable Allergies No [...]
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
[2018-10-19] MEDS ORDERED: NAPR-1071 PO (22:16)
--- OUTSIDE RECORDS SUMMARY | 2018-10-19 22:17 | XMS REPORT | Continuity of Care Document ---
Author Organization Unknown Address Unknown Allergies Active Description Code Type Severity Reaction Onset Reported/Identified Relationship to Patient Clinical Status Yes No Known Drug Allergies [id number] Drug Allergy Unknown N/A 07/27/2010 Yes doxepin [...] BALTA PEDRAZA MD 784.0 headache 06/17/2011 [facility] ELECTRICAL APPLIANCE REPAIRER, MISA 285.9 ANEMIA 06/17/2011 [facility] ELECTRICAL APPLIANCE REPAIRER, MISA 780.79 FATIGUE 06/17/2011 [facility] ELECTRICAL APPLIANCE REPAIRER, MISA 783.1 recent weight gain (___ lbs) [reported] 06/17/2011 [facility] ELECTRICAL APPLIANCE REPAIRER, MISA 784.0 headache 06/17/2011 [facility] ELECTRICAL APPLIANCE REPAIRER, MISA 285.9 ANEMIA 06/17/2011 [facility] ELECTRICAL APPLIANCE REPAIRER, MISA 780.79 FATIGUE 06/17/2011 [facility] ELECTRICAL APPLIANCE REPAIRER, MISA 783.1 recent weight gain (___ lbs) [reported] 06/17/2011 [facility] ELECTRICAL APPLIANCE REPAIRER, MISA 784.0 headache 06/17/2011 WHITE DDSJEREMIE 285.9 ANEMIA 06/17/2011 WHITE DDS, JEREMIE D 780.79 FATIGUE 06/17/2011 WHITE DDS, JEREMIE D 783.1 recent weight gain (___ lbs) [reported] 06/17/2011 WHITE DDS, JEREMIE D 784.0 headache 06/17/2011 [facility] ELECTRICAL APPLIANCE REPAIRER, MISA 285.9 ANEMIA 06/17/2011 [facility] ELECTRICAL APPLIANCE REPAIRER, MISA 780.79 FATIGUE 06/17/2011 [facility] ELECTRICAL APPLIANCE REPAIRER, MISA 783.1 recent weight gain (___ lbs) [reported] 06/17/2011 [facility] ELECTRICAL APPLIANCE REPAIRER, MISA 784.0 headache 06/17/2011 [facility] ELECTRICAL APPLIANCE REPAIRER, MISA 285.9 ANEMIA 06/17/2011 [facility] ELECTRICAL APPLIANCE REPAIRER, MISA 780.79 FATIGUE 06/17/2011 [facility] ELECTRICAL APPLIANCE REPAIRER, MISA 783.1 recent weight gain (___ lbs) [reported] 06/17/2011 [facility] ELECTRICAL APPLIANCE REPAIRER, MISA 784.0 headache 06/17/2011 [facility] ELECTRICAL APPLIANCE REPAIRER, DARIAN L 285.9 ANEMIA 06/17/2011 MAD[facility] ELECTRICAL APPLIANCE REPAIRER, DARIAN L 780.79 FATIGUE 06/17/2011 MADL ELECTRICAL APPLIANCE REPAIRER, DARIAN L 783.1 recent weight gain (___ lbs) [reported] 06/17/2011 MADL ELECTRICAL APPLIANCE REPAIRER, DARIAN L 784.0 headache 06/17/2011 LEONARDO DO, [...] LEONARDO DO K 784.0 headache 06/17/2011 [facility] ELECTRICAL APPLIANCE REPAIRER, MISA 285.9 ANEMIA 06/17/2011 [facility] ELECTRICAL APPLIANCE REPAIRER, MISA 780.79 FATIGUE 06/17/2011 [facility] ELECTRICAL APPLIANCE REPAIRER, MISA 783.1 recent weight gain (___ lbs) [reported] 06/17/2011 [facility] ELECTRICAL APPLIANCE REPAIRER, MISA 784.0 headache 06/17/2011 [facility] ELECTRICAL APPLIANCE REPAIRER, DARIAN L 285.9 ANEMIA 06/17/2011 MAD[facility] ELECTRICAL APPLIANCE REPAIRER, DARIAN L 780.79 FATIGUE 06/17/2011 MADL ELECTRICAL APPLIANCE REPAIRER, DARIAN L 783.1 recent weight gain (___ lbs) [reported] 06/17/2011 MADL ELECTRICAL APPLIANCE REPAIRER, DARIAN L 784.0 headache 06/17/2011 JESSICA CABRERA PHD 285.9 ANEMIA 06/17/2011 JESSICA CABRERA PHD 780.79 FATIGUE 06/17/2011 JESSICA CABRERA PHD 783.1 recent weight gain (___ lbs) [reported] 06/17/2011 JESSICA CABRERA PHD 784.0 headache 06/17/2011 MADL ELECTRICAL APPLIANCE REPAIRER, DARIAN L 285.9 ANEMIA 06/17/2011 MAD[facility] ELECTRICAL APPLIANCE REPAIRER, DARIAN L 780.79 FATIGUE 06/17/2011 MADL ELECTRICAL APPLIANCE REPAIRER, DARIAN L 783.1 recent weight gain (___ lbs) [reported] 06/17/2011 MAD[facility] ELECTRICAL APPLIANCE REPAIRER, DARIAN L 784.0 headache 06/17/2011 [facility] ELECTRICAL APPLIANCE REPAIRER, MISA 285.9 ANEMIA 06/17/2011 [facility] ELECTRICAL APPLIANCE REPAIRER, MISA 780.79 FATIGUE 06/17/2011 [facility] ELECTRICAL APPLIANCE REPAIRER, MISA 783.1 recent weight gain (___ lbs) [reported] 06/17/2011 [facility] ELECTRICAL APPLIANCE REPAIRER, MISA 784.0 headache 06/17/2011 JESSICA CABRERA PHD 285.9 ANEMIA 06/17/2011 JESSICA CABRERA PHD 780.79 FATIGUE 06/17/2011 JESSICA CABRERA PHD 783.1 recent weight gain (___ lbs) [reported] 06/17/2011 RICK ALBERTO JESSICA A 784.0 headache 06/17/2011 [facility] ELECTRICAL APPLIANCE REPAIRER, MISA 285.9 ANEMIA 06/17/2011 [facility] ELECTRICAL APPLIANCE REPAIRER, MISA 780.79 FATIGUE 06/17/2011 [facility] ELECTRICAL APPLIANCE REPAIRER, MISA 783.1 recent weight gain (___ lbs) [reported] 06/17/2011 [facility] ELECTRICAL APPLIANCE REPAIRER, MISA 784.0 headache 06/17/2011 [facility] ELECTRICAL APPLIANCE REPAIRER, DARIAN L 285.9 ANEMIA 06/17/2011 MADL ELECTRICAL APPLIANCE REPAIRER, DARIAN L 780.79 FATIGUE 06/17/2011 MADL ELECTRICAL APPLIANCE REPAIRER, DARIAN L 783.1 recent weight gain (___ lbs) [reported] 06/17/2011 MADL ELECTRICAL APPLIANCE REPAIRER, DARIAN L 784.0 headache 06/17/2011 FLOYD ELECTRICAL APPLIANCE REPAIRER, ANGEL R 285.9 ANEMIA 06/17/2011 FLOYD ELECTRICAL APPLIANCE REPAIRER, ANGEL R 780.79 FATIGUE 06/17/2011 FLOYD ELECTRICAL APPLIANCE REPAIRER, ANGEL R 783.1 recent weight gain (___ lbs) [reported] 06/17/2011 FLOYD ELECTRICAL APPLIANCE REPAIRER, ANGEL R 784.0 headache 06/17/2011 MADL ELECTRICAL APPLIANCE REPAIRER, DARIAN L 285.9 ANEMIA 06/17/2011 MADL ELECTRICAL APPLIANCE REPAIRER, DARIAN L 780.79 FATIGUE 06/17/2011 MADL ELECTRICAL APPLIANCE REPAIRER, DARIAN L 783.1 recent weight gain (___ lbs) [reported] 06/17/2011 MADL ELECTRICAL APPLIANCE REPAIRER, DARIAN L 784.0 headache 06/17/2011 [facility] ELECTRICAL APPLIANCE REPAIRER, MISA 285.9 ANEMIA 06/17/2011 [facility] ELECTRICAL APPLIANCE REPAIRER, MISA 780.79 FATIGUE 06/17/2011 [facility] ELECTRICAL APPLIANCE REPAIRER, MISA 783.1 recent weight gain (___ lbs) [reported] 06/17/2011 VA ELECTRICAL APPLIANCE REPAIRER, MISA 784.0 headache 06/17/2011 MADL ELECTRICAL APPLIANCE REPAIRER, DARIAN L 285.9 ANEMIA 06/17/2011 MADL ELECTRICAL APPLIANCE REPAIRER, DARIAN L 780.79 FATIGUE 06/17/2011 MADL ELECTRICAL APPLIANCE REPAIRER, DARIAN L 783.1 recent weight gain (___ lbs) [reported] 06/17/2011 DARIAN HELTON APRN 784.0 headache 06/17/2011 [facility] ELECTRICAL APPLIANCE REPAIRER, MISA 285.9 ANEMIA 06/17/2011 VABUD RIVERAN, MISA [...] 296.32 MO DEPRESSIVE RECURRENT MODERATE 06/21/2011 [facility] ELECTRICAL APPLIANCE REPAIRER, MISA 296.32 MO DEPRESSIVE RECURRENT MODERATE 06/21/2011 VA ELECTRICAL APPLIANCE REPAIRER, MISA 296.32 MO DEPRESSIVE RECURRENT MODERATE 06/21/2011 WHITE DDS, JEREMIE Pina 296.32 MO DEPRESSIVE RECURRENT MODERATE 06/21/2011 VA ELECTRICAL APPLIANCE REPAIRER, MISA 296.32 MO DEPRESSIVE RECURRENT MODERATE 06/21/2011 [facility] ELECTRICAL APPLIANCE REPAIRER, MISA 296.32 MO DEPRESSIVE RECURRENT MODERATE 06/21/2011 MADL ELECTRICAL APPLIANCE REPAIRER, DARIAN L 296.32 MO DEPRESSIVE RECURRENT MODERATE 06/21/2011 LEONARDO DO NORA K 296.32 MO DEPRESSIVE RECURRENT MODERATE 06/21/2011 LEONARDO DO, NORA K 296.32 MO DEPRESSIVE RECURRENT MODERATE 06/21/2011 LEONARDO DO NORA K 296.32 MO DEPRESSIVE RECURRENT MODERATE 06/21/2011 [facility] ELECTRICAL APPLIANCE REPAIRER MISA 296.32 MO DEPRESSIVE RECURRENT MODERATE 06/21/2011 MADL ELECTRICAL APPLIANCE REPAIRER, DARIAN L 296.32 MO DEPRESSIVE RECURRENT MODERATE 06/21/2011 RICK ALBERTO, JESSICA Sabillon 296.32 MO DEPRESSIVE RECURRENT MODERATE 06/21/2011 MADL ELECTRICAL APPLIANCE REPAIRER, DARIAN L 296.32 MO DEPRESSIVE RECURRENT MODERATE 06/21/2011 [facility] ELECTRICAL APPLIANCE REPAIRER MISA 296.32 MO DEPRESSIVE RECURRENT MODERATE 06/21/2011 RICK ALBERTO, JESSICA Sabillon 296.32 MO DEPRESSIVE RECURRENT MODERATE 06/21/2011 [facility] ELECTRICAL APPLIANCE REPAIRER MISA 296.32 MO DEPRESSIVE RECURRENT MODERATE 06/21/2011 MADL ELECTRICAL APPLIANCE REPAIRER, DARIAN L 296.32 MO DEPRESSIVE RECURRENT MODERATE 06/21/2011 FLOYD COOPER ANGEL R 296.32 MO DEPRESSIVE RECURRENT MODERATE 06/21/2011 MADL ELECTRICAL APPLIANCE REPAIRER, DARIAN L 296.32 MO DEPRESSIVE RECURRENT MODERATE 06/21/2011 [facility] ELECTRICAL APPLIANCE REPAIRER MISA 296.32 MO DEPRESSIVE RECURRENT MODERATE 06/21/2011 MADL ELECTRICAL APPLIANCE REPAIRER, DARIAN L 296.32 MO DEPRESSIVE RECURRENT MODERATE 06/21/2011 [facility] ELECTRICAL APPLIANCE REPAIRER, MISA 296.32 MO DEPRESSIVE RECURRENT MODERATE 06/21/2011 [...] UNSPECIFIED SITE OF ANKLE SPRAIN 07/02/2011 VA ELECTRICAL APPLIANCE REPAIRER, MISA 845.00 UNSPECIFIED SITE OF ANKLE SPRAIN 07/02/2011 VA ELECTRICAL APPLIANCE REPAIRER, MISA 845.00 UNSPECIFIED SITE OF ANKLE SPRAIN 07/02/2011 JEREMIE ALEX DDS 845.00 UNSPECIFIED SITE OF ANKLE SPRAIN 07/02/2011 VA ELECTRICAL APPLIANCE REPAIRER, MISA 845.00 UNSPECIFIED SITE OF ANKLE SPRAIN 07/02/2011 VA ELECTRICAL APPLIANCE REPAIRER, MISA 845.00 UNSPECIFIED SITE OF ANKLE SPRAIN 07/02/2011 MADL ELECTRICAL APPLIANCE REPAIRER, DARIAN L 845.00 UNSPECIFIED SITE OF ANKLE SPRAIN 07/02/2011 LEONARDO DO NORA K 845.00 UNSPECIFIED SITE OF ANKLE SPRAIN 07/02/2011 LEONARDO DO NORA K 845.00 UNSPECIFIED SITE OF ANKLE SPRAIN 07/02/2011 LEONARDO DO NORA K 845.00 UNSPECIFIED SITE OF ANKLE SPRAIN 07/02/2011 [facility] ELECTRICAL APPLIANCE REPAIRER, MISA 845.00 UNSPECIFIED SITE OF ANKLE SPRAIN 07/02/2011 MADL ELECTRICAL APPLIANCE REPAIRER, DARIAN L 845.00 UNSPECIFIED SITE OF ANKLE SPRAIN 07/02/2011 RICK ALBERTO, JESSICA Sabillon 845.00 UNSPECIFIED SITE OF ANKLE SPRAIN 07/02/2011 MADL ELECTRICAL APPLIANCE REPAIRER, DARIAN L 845.00 UNSPECIFIED SITE OF ANKLE SPRAIN 07/02/2011 VA ELECTRICAL APPLIANCE REPAIRER, MISA 845.00 UNSPECIFIED SITE OF ANKLE SPRAIN 07/02/2011 RICK ALBERTO, JESSICA Sabillon 845.00 UNSPECIFIED SITE OF ANKLE SPRAIN 07/02/2011 VA ELECTRICAL APPLIANCE REPAIRER, MISA 845.00 UNSPECIFIED SITE OF ANKLE SPRAIN 07/02/2011 MADL ELECTRICAL APPLIANCE REPAIRER DARIAN L 845.00 UNSPECIFIED SITE OF ANKLE SPRAIN 07/02/2011 ANGEL BARRIENTOS APRN 845.00 UNSPECIFIED SITE OF ANKLE SPRAIN 07/02/2011 MADL ELECTRICAL APPLIANCE REPAIRER, DARIAN L 845.00 UNSPECIFIED SITE OF ANKLE [...] MD 300.00 ANXIETY STATE UNSPECIFIED 07/11/2011 [facility] ELECTRICAL APPLIANCE REPAIRER, MISA 300.00 ANXIETY STATE UNSPECIFIED 07/11/2011 VA ELECTRICAL APPLIANCE REPAIRER, MISA 300.00 ANXIETY STATE UNSPECIFIED 07/11/2011 ISAI DDS, JEREMIE Pina 300.00 ANXIETY STATE UNSPECIFIED 07/11/2011 VA ELECTRICAL APPLIANCE REPAIRER, MISA 300.00 ANXIETY STATE UNSPECIFIED 07/11/2011 VA ELECTRICAL APPLIANCE REPAIRER, MISA 300.00 ANXIETY STATE UNSPECIFIED 07/11/2011 MADL ELECTRICAL APPLIANCE REPAIRER, DARIAN L 300.00 ANXIETY STATE UNSPECIFIED 07/11/2011 LEONARDO DO, NORA K 300.00 ANXIETY STATE UNSPECIFIED 07/11/2011 LEONARDO DO, NORA K 300.00 ANXIETY STATE UNSPECIFIED 07/11/2011 LEONARDO DO, NORA K 300.00 ANXIETY STATE UNSPECIFIED 07/11/2011 [facility] ELECTRICAL APPLIANCE REPAIRER, MISA 300.00 ANXIETY STATE UNSPECIFIED 07/11/2011 MADL ELECTRICAL APPLIANCE REPAIRER, DARIAN L 300.00 ANXIETY STATE UNSPECIFIED 07/11/2011 RICK ALBERTO, JESSICA Sabillon 300.00 ANXIETY STATE UNSPECIFIED 07/11/2011 MADL ELECTRICAL APPLIANCE REPAIRER, DARIAN L 300.00 ANXIETY STATE UNSPECIFIED 07/11/2011 [facility] ELECTRICAL APPLIANCE REPAIRER, MISA 300.00 ANXIETY STATE UNSPECIFIED 07/11/2011 RICK ALBERTO, JESSICA Sabillon 300.00 ANXIETY STATE UNSPECIFIED 07/11/2011 VA ELECTRICAL APPLIANCE REPAIRER, MISA 300.00 ANXIETY STATE UNSPECIFIED 07/11/2011 MADL ELECTRICAL APPLIANCE REPAIRER, DARIAN L 300.00 ANXIETY STATE UNSPECIFIED 07/11/2011 FLOYD ELECTRICAL APPLIANCE REPAIRER, ANGEL R 300.00 ANXIETY STATE UNSPECIFIED 07/11/2011 MADL ELECTRICAL APPLIANCE REPAIRER, DARIAN L 300.00 ANXIETY STATE UNSPECIFIED 07/11/2011 [facility] ELECTRICAL APPLIANCE REPAIRER, MISA 300.00 ANXIETY STATE UNSPECIFIED 07/11/2011 MADL ELECTRICAL APPLIANCE REPAIRER, DARIAN L 300.00 ANXIETY STATE UNSPECIFIED 07/11/2011 VA ELECTRICAL APPLIANCE REPAIRER, MISA 300.00 ANXIETY STATE UNSPECIFIED 07/11/2011 300.00 [...] MISA 728.71 PLANTAR FASCIAL FIBROMATOSIS 07/18/2011 VA ELECTRICAL APPLIANCE REPAIRER, MISA 728.71 PLANTAR FASCIAL FIBROMATOSIS 07/18/2011 EVAL NATHALY COOPERWNYA L 728.71 PLANTAR FASCIAL FIBROMATOSIS 07/18/2011 LEONARDO TREVOR BOATENGA K 728.71 PLANTAR FASCIAL FIBROMATOSIS 07/18/2011 LEONARDO DOTREVORA K 728.71 PLANTAR FASCIAL FIBROMATOSIS 07/18/2011 LEONARDO DOTREVORA K 728.71 PLANTAR FASCIAL FIBROMATOSIS 07/18/2011 VA ELECTRICAL APPLIANCE REPAIRER, MISA 728.71 PLANTAR FASCIAL FIBROMATOSIS 07/18/2011 RAMON HELTON APRNA L 728.71 PLANTAR FASCIAL FIBROMATOSIS 07/18/2011 RICK ALBERTO, JESSICA Sabillon 728.71 PLANTAR FASCIAL FIBROMATOSIS 07/18/2011 NATHALY HELTON APRNWNYA L 728.71 PLANTAR FASCIAL FIBROMATOSIS 07/18/2011 VA KENNETH MISA 728.71 PLANTAR FASCIAL FIBROMATOSIS 07/18/2011 RICK ALBERTO, JESSICA A 728.71 PLANTAR FASCIAL FIBROMATOSIS 07/18/2011 [facility] ELECTRICAL APPLIANCE REPAIRER, MISA 728.71 PLANTAR FASCIAL FIBROMATOSIS 07/18/2011 NATHALY EHLTON APRNWNYA L 728.71 PLANTAR FASCIAL FIBROMATOSIS 07/18/2011 ANGEL BARRIENTOS APRN 728.71 PLANTAR FASCIAL FIBROMATOSIS 07/18/2011 EVAL NATHALY COOPERWNYA L 728.71 PLANTAR FASCIAL FIBROMATOSIS 07/18/2011 VA KENNETH MISA 728.71 PLANTAR FASCIAL FIBROMATOSIS 07/18/2011 EVAL KENNETH DARIAN L 728.71 PLANTAR FASCIAL FIBROMATOSIS 07/18/2011 VA ELECTRICAL APPLIANCE REPAIRER, MISA 728.71 PLANTAR FASCIAL FIBROMATOSIS 07/18/2011 728.71 [...] PHD 300.02 AN GEN ANXIETY 07/29/2011 JESSICA CABRERA [...] RECURRENT 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 BEHAVIOR 07/29/2011 [facility] ELECTRICAL APPLIANCE REPAIRER, MISA 300.02 AN GEN ANXIETY 07/29/2011 MADL ELECTRICAL APPLIANCE REPAIRER, DARIAN L 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 07/29/2011 MADL ELECTRICAL APPLIANCE REPAIRER, DARIAN L 300.02 AN GEN ANXIETY 07/29/2011 [...] K 300.02 AN GEN ANXIETY 07/29/2011 [facility] ELECTRICAL APPLIANCE REPAIRER, MISA 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 07/29/2011 VA ELECTRICAL APPLIANCE REPAIRER, MISA 300.02 AN GEN ANXIETY 07/29/2011 MADL ELECTRICAL APPLIANCE REPAIRER, DARIAN L 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 07/29/2011 MADL ELECTRICAL APPLIANCE REPAIRER, DARIAN L 300.02 AN GEN ANXIETY 07/29/2011 RICK PHD, JESSICA Sabillon 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 07/29/2011 RICK PHD, JESSICA A 300.02 AN GEN ANXIETY 07/29/2011 MADL ELECTRICAL APPLIANCE REPAIRER, DARIAN L 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 07/29/2011 MADL ELECTRICAL APPLIANCE REPAIRER, DARIAN L 300.02 AN GEN ANXIETY 07/29/2011 [facility] ELECTRICAL APPLIANCE REPAIRER MISA 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 07/29/2011 VA ELECTRICAL APPLIANCE REPAIRER, MISA 300.02 AN GEN ANXIETY 07/29/2011 RICK PHD, JESSICA A 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 07/29/2011 RICK PHD, JESSICA A 300.02 AN GEN ANXIETY 07/29/2011 [facility] ELECTRICAL APPLIANCE REPAIRER, MISA 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 07/29/2011 VA ELECTRICAL APPLIANCE REPAIRER MISA 300.02 AN GEN ANXIETY 07/29/2011 MADL ELECTRICAL APPLIANCE REPAIRER, DARIAN L 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 RECURRENT SEVERE [...] [place] APRN 724.2 BACK PAIN, LOWER 08/26/2011 [facility] J[facility] 462 Ph[facility]itis Acute 08/26[facility]2011 [facility] A 724.2 BACK PAIN, LOWER 08/26/2011 [facility], JESSICA A 462 Pharyngitis Acute 08/26/2011 [facility], JESSICA A 724.2 BACK PAIN, LOWER 08/26/2011 [facility] J[facility] A 462 Pharyngitis Acute 08/26/2011 [facility] PH[facility], JESSICA A 724.2 BACK PAIN, LOWER 08/26/2011 BRIANDA [place] APRN 462 Pharyngitis Acute 08/26/2011 BRIANDA [place] APRN 724.2 BACK PAIN, LOWER 08/26/2011 [facility], JESSICA A 462 Pharyngitis Acute 08/26/2011 [facility] PHD, JESSICA A 724.2 BACK PAIN, LOWER 08/26/2011 VALERIANO SEYMOUR, DOMINIC Iverson 462 Pharyngitis Acute 08/26/2011 VALERIANO SEYMOUR, DOMINIC Iverson 724.2 BACK PAIN, LOWER 08/26/2011 VALERIANO SEYMOUR, DOMINIC M 462 Pharyngitis Acute 08/26/2011 VALERIANO SEYMOUR, DOMINIC Iverson 724.2 lower back pain 08/26/2011 BOERAVI PHD, JESSICA A 462 Pharyngitis Acute 08/26/2011 [facility] PHD, JESSICA A 724.2 lower back pain [...] MD 724.2 lower back pain 08/26/2011 VA ELECTRICAL APPLIANCE REPAIRER, MISA 462 Pharyngitis Acute 08/26/2011 VA ELECTRICAL APPLIANCE REPAIRER, MISA 724.2 lower back pain 08/26/2011 VA ELECTRICAL APPLIANCE REPAIRER, MISA 462 Pharyngitis Acute 08/26/2011 VA ELECTRICAL APPLIANCE REPAIRER, MISA 724.2 lower back pain 08/26/2011 WHITE DDS, JEREMIE D 462 Pharyngitis Acute 08/26/2011 WHITE DDS, JEREMIE D 724.2 lower back pain 08/26/2011 VA ELECTRICAL APPLIANCE REPAIRER, MISA 462 Pharyngitis Acute 08/26/2011 VA ELECTRICAL APPLIANCE REPAIRER, MISA 724.2 lower back pain 08/26/2011 VA ELECTRICAL APPLIANCE REPAIRER, MISA 462 Pharyngitis Acute 08/26/2011 VA ELECTRICAL APPLIANCE REPAIRER, MISA 724.2 lower back pain 08/26/2011 MADL ELECTRICAL APPLIANCE REPAIRER, DARIAN L 462 Pharyngitis Acute 08/26/2011 MADL ELECTRICAL APPLIANCE REPAIRER, DARIAN L 724.2 lower back pain 08/26/2011 LEONARDO DO, NORA K 462 Pharyngitis Acute 08/26/2011 LEONARDO DO, NORA K 724.2 lower back pain 08/26/2011 LEONARDO DO, NORA K 462 Pharyngitis Acute 08/26/2011 LEONARDO DO, NORA K 724.2 lower back pain 08/26/2011 LEONARDO DO, NORA K 462 Pharyngitis Acute 08/26/2011 LEONARDO DO, NORA K 724.2 lower back pain 08/26/2011 VA ELECTRICAL APPLIANCE REPAIRER, MISA 462 Pharyngitis Acute 08/26/2011 VA ELECTRICAL APPLIANCE REPAIRER, MISA 724.2 lower back pain 08/26/2011 MADL ELECTRICAL APPLIANCE REPAIRER, DARIAN L 462 Pharyngitis Acute 08/26/2011 MADL ELECTRICAL APPLIANCE REPAIRER, DARIAN L 724.2 lower back pain 08/26/2011 RICK PHD, JESSICA A 462 Pharyngitis Acute 08/26/2011 RICK PHD, JESSICA A 724.2 lower back pain 08/26/2011 MADL ELECTRICAL APPLIANCE REPAIRER, DARIAN L 462 Pharyngitis Acute 08/26/2011 MADL ELECTRICAL APPLIANCE REPAIRER, DARIAN L 724.2 lower back pain 08/26/2011 VA ELECTRICAL APPLIANCE REPAIRER, MISA 462 Pharyngitis Acute 08/26/2011 VA ELECTRICAL APPLIANCE REPAIRER, MISA 724.2 lower back pain 08/26/2011 RICK PHD, JESSICA A 462 Pharyngitis Acute 08/26/2011 RICK PHD, JESSICA A 724.2 lower back pain 08/26/2011 VA ELECTRICAL APPLIANCE REPAIRER, MISA 462 Pharyngitis Acute 08/26/2011 VA ELECTRICAL APPLIANCE REPAIRER, MISA 724.2 lower back pain 08/26/2011 MADL ELECTRICAL APPLIANCE REPAIRER, DARIAN L 462 Pharyngitis Acute 08/26/2011 MADL ELECTRICAL APPLIANCE REPAIRER, DARIAN L 724.2 lower back pain 08/26/2011 FLOYD ELECTRICAL APPLIANCE REPAIRER, ANGEL R 462 Pharyngitis Acute 08/26/2011 FLOYD ELECTRICAL APPLIANCE REPAIRER, ANGEL R 724.2 lower back pain 08/26/2011 MADL ELECTRICAL APPLIANCE REPAIRER, DARIAN L 462 Pharyngitis Acute 08/26/2011 MADL ELECTRICAL APPLIANCE REPAIRER, DARIAN L 724.2 lower back pain 08/26/2011 VA ELECTRICAL APPLIANCE REPAIRER, MISA 462 Pharyngitis Acute 08/26/2011 VA ELECTRICAL APPLIANCE REPAIRER, MISA 724.2 lower back pain 08/26/2011 MADL ELECTRICAL APPLIANCE REPAIRER, DARIAN L 462 Pharyngitis Acute 08/26/2011 MADL ELECTRICAL APPLIANCE REPAIRER, DARIAN L 724.2 lower back pain 08/26/2011 VA ELECTRICAL APPLIANCE REPAIRER, MISA 462 Pharyngitis Acute 08/26/2011 VA ELECTRICAL APPLIANCE REPAIRER, MISA 724.2 lower back pain 08/26/2011 462 [...] MD 296.89 MO BIPOLAR II 08/28/2011 VA ELECTRICAL APPLIANCE REPAIRER, MISA 296.89 MO BIPOLAR II 08/28/2011 VA ELECTRICAL APPLIANCE REPAIRER, MISA 296.89 MO BIPOLAR II 08/28/2011 JEREMIE ALEX DDS 296.89 MO BIPOLAR II 08/28/2011 VA ELECTRICAL APPLIANCE REPAIRER, MISA 296.89 MO BIPOLAR II 08/28/2011 VA ELECTRICAL APPLIANCE REPAIRER, MISA 296.89 MO BIPOLAR II 08/28/2011 DARIAN HELTON APRN 296.89 MO BIPOLAR II 08/28/2011 LEONARDO DO NORA K 296.89 MO BIPOLAR II 08/28/2011 LEONARDO DO NORA K 296.89 MO BIPOLAR II 08/28/2011 LEONARDO DO NORA K 296.89 MO BIPOLAR II 08/28/2011 VA COOPER MISA 296.89 MO BIPOLAR II 08/28/2011 MADL ELECTRICAL APPLIANCE REPAIRER, DARIAN L 296.89 MO BIPOLAR II 08/28/2011 RICK ALBERTO, JESSICA Sabillon 296.89 MO BIPOLAR II 08/28/2011 MADL ELECTRICAL APPLIANCE REPAIRER, DARIAN L 296.89 MO BIPOLAR II 08/28/2011 VA COOPER MISA 296.89 MO BIPOLAR II 08/28/2011 RICK ALBERTO, JESSICA Sabillon 296.89 MO BIPOLAR II 08/28/2011 VA ELECTRICAL APPLIANCE REPAIRER, MISA 296.89 MO BIPOLAR II 08/28/2011 MADL ELECTRICAL APPLIANCE REPAIRER, DARIAN L 296.89 MO BIPOLAR II 08/28/2011 ANGEL BARRIENTOS APRN R 296.89 MO BIPOLAR II 08/28/2011 EVAL ELECTRICAL APPLIANCE REPAIRER, DARIAN L 296.89 MO BIPOLAR II 08/28/2011 [...] BALTA PEDRAZA MD 729.1 FIBROMYALGIA 12/30/2011 [facility] ELECTRICAL APPLIANCE REPAIRER, MISA 729.1 FIBROMYALGIA 12/30/2011 VA ELECTRICAL APPLIANCE REPAIRER, MISA 729.1 FIBROMYALGIA 12/30/2011 JEREMIE ALEX DDS 729.1 FIBROMYALGIA 12/30/2011 [place] ELECTRICAL APPLIANCE REPAIRER, MISA 729.1 FIBROMYALGIA 12/30/2011 VA ELECTRICAL APPLIANCE REPAIRER, MISA 729.1 FIBROMYALGIA 12/30/2011 MADDARIAN Patten APRN 729.1 FIBROMYALGIA 12/30/2011 TREVOR LEONARDO DOA K 729.1 FIBROMYALGIA 12/30/2011 LEONARDO TREVOR BOATENGA K 729.1 FIBROMYALGIA 12/30/2011 LEONARDO TREVOR BOATENGA K 729.1 FIBROMYALGIA 12/30/2011 [place] ELECTRICAL APPLIANCE REPAIRER, MISA 729.1 FIBROMYALGIA 12/30/2011 EVAL KENNETH DARIAN L 729.1 FIBROMYALGIA 12/30/2011 JESSICA CABRERA PHD 729.1 FIBROMYALGIA 12/30/2011 EVAL DARIAN COOPER 729.1 FIBROMYALGIA 12/30/2011 VA KENNETH MISA 729.1 FIBROMYALGIA 12/30/2011 JESSICA CABRERA PHD 729.1 FIBROMYALGIA 12/30/2011 [place] ELECTRICAL APPLIANCE REPAIRER MISA 729.1 FIBROMYALGIA 12/30/2011 NATHALY HELTON APRNWNYA L 729.1 FIBROMYALGIA 12/30/2011 FLOYD COOPER ANGEL R 729.1 FIBROMYALGIA 12/30/2011 EVAL ELECTRICAL APPLIANCE REPAIRER, DARIAN L 729.1 FIBROMYALGIA 12/30/2011 VA RIVERAN, MISA 729.1 FIBROMYALGIA 12/30/2011 DANIE ELECTRICAL APPLIANCE REPAIRERNATHALYDARIAN L 729.1 FIBROMYALGIA 12/30/2011 VA ELECTRICAL APPLIANCE REPAIRER, MISA 729.1 FIBROMYALGIA 12/30/2011 729.1 FIBROMYALGIA 01/17/2012 [...] MILO SEYMOUR, BALTA 724.3 SCIATICA 04/23/2012 [place] ELECTRICAL APPLIANCE REPAIRER, MISA 724.3 SCIATICA 04/23/2012 VA ELECTRICAL APPLIANCE REPAIRER, MISA 724.3 SCIATICA 04/23/2012 ISAI DDS, JEREMIE Pina 724.3 SCIATICA 04/23/2012 VA ELECTRICAL APPLIANCE REPAIRER, MISA 724.3 SCIATICA 04/23/2012 VA ELECTRICAL APPLIANCE REPAIRER, MISA 724.3 SCIATICA 04/23/2012 MADL ELECTRICAL APPLIANCE REPAIRER, DARIAN L 724.3 SCIATICA 04/23/2012 LEONARDO DO, NORA K 724.3 SCIATICA 04/23/2012 LEONARDO DO, NORA K 724.3 SCIATICA 04/23/2012 LEONARDO DO, NORA K 724.3 SCIATICA 04/23/2012 VA ELECTRICAL APPLIANCE REPAIRER, MISA 724.3 SCIATICA 04/23/2012 MADL ELECTRICAL APPLIANCE REPAIRER, DARIAN L 724.3 SCIATICA 04/23/2012 RICK PHD, JESSICA Sabillon 724.3 SCIATICA 04/23/2012 MADL ELECTRICAL APPLIANCE REPAIRER, DARIAN L 724.3 SCIATICA 04/23/2012 VA ELECTRICAL APPLIANCE REPAIRER, MISA 724.3 SCIATICA 04/23/2012 RICK PHD, JESSICA Sabillon 724.3 SCIATICA 04/23/2012 VA ELECTRICAL APPLIANCE REPAIRER, MISA 724.3 SCIATICA 04/23/2012 MADL ELECTRICAL APPLIANCE REPAIRER, DARIAN L 724.3 SCIATICA 04/23/2012 FLOYD COOPER, ANGEL R 724.3 SCIATICA 04/23/2012 MADL ELECTRICAL APPLIANCE REPAIRER, DARIAN L 724.3 SCIATICA 04/23/2012 VA ELECTRICAL APPLIANCE REPAIRER, MISA 724.3 SCIATICA 04/23/2012 MADL ELECTRICAL APPLIANCE REPAIRER, DARIAN L 724.3 SCIATICA 04/23/2012 VA ELECTRICAL APPLIANCE REPAIRER, MISA 724.3 SCIATICA 07/17/2012 728.85 MUSCLE SPASM [...] DO, NORA K 728.85 MUSCLE SPASM 07/17/2012 ELONARDO DO, NORA K 728.85 MUSCLE SPASM 07/17/2012 BALTA PEDRAZA MD 728.85 MUSCLE SPASM 07/17/2012 VA ELECTRICAL APPLIANCE REPAIRER, MISA 728.85 MUSCLE SPASM 07/17/2012 VA ELECTRICAL APPLIANCE REPAIRER, MISA 728.85 MUSCLE SPASM 07/17/2012 JEREMIE ALEX DDS 728.85 MUSCLE SPASM 07/17/2012 VA ELECTRICAL APPLIANCE REPAIRER, MISA 728.85 MUSCLE SPASM 07/17/2012 VA ELECTRICAL APPLIANCE REPAIRER, MISA 728.85 MUSCLE SPASM 07/17/2012 MADL ELECTRICAL APPLIANCE REPAIRER, DARIAN L 728.85 MUSCLE SPASM 07/17/2012 LEONARDO DO, NORA K 728.85 MUSCLE SPASM 07/17/2012 LEONARDO DO, NORA K 728.85 MUSCLE SPASM 07/17/2012 LEONARDO DO, NORA K 728.85 MUSCLE SPASM 07/17/2012 VA ELECTRICAL APPLIANCE REPAIRER, MISA 728.85 MUSCLE SPASM 07/17/2012 MADL ELECTRICAL APPLIANCE REPAIRER, DARIAN L 728.85 MUSCLE SPASM 07/17/2012 RICK ALBERTO, JESSICA A 728.85 MUSCLE SPASM 07/17/2012 MADL ELECTRICAL APPLIANCE REPAIRER, DARIAN L 728.85 MUSCLE SPASM 07/17/2012 [place] ELECTRICAL APPLIANCE REPAIRER, MISA 728.85 MUSCLE SPASM 07/17/2012 RICK ALBERTO, JESSICA A 728.85 MUSCLE SPASM 07/17/2012 VA ELECTRICAL APPLIANCE REPAIRER, MISA 728.85 MUSCLE SPASM 07/17/2012 MADL ELECTRICAL APPLIANCE REPAIRER, DARIAN L 728.85 MUSCLE SPASM 07/17/2012 FLOYD ELECTRICAL APPLIANCE REPAIRER, ANGEL R 728.85 MUSCLE SPASM 07/17/2012 MADL ELECTRICAL APPLIANCE REPAIRER, DARIAN L 728.85 MUSCLE SPASM 07/17/2012 [place] ELECTRICAL APPLIANCE REPAIRER, MISA 728.85 MUSCLE SPASM 07/17/2012 MADL ELECTRICAL APPLIANCE REPAIRER, DARIAN L 728.85 MUSCLE SPASM 07/17/2012 [facility] ELECTRICAL APPLIANCE REPAIRER, MISA 728.85 MUSCLE SPASM 08/23/2012 JEANINE SEYMOUR, [...] 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 08/25/2012 RICK ALBERTO, JESSICA Sabiloln 296.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 08/25/2012 RICK ALBERTO, [...] PEDRAZA MD 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 08/25/2012 [facility] ELECTRICAL APPLIANCE REPAIRER, MISA 296.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 08/25/2012 VA ELECTRICAL APPLIANCE REPAIRER, MISA 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 08/25/2012 [facility] ELECTRICAL APPLIANCE REPAIRER, MISA 296.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 08/25/2012 VA ELECTRICAL APPLIANCE REPAIRER, MISA 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 08/25/2012 WHITE DDS, JEREMIE D 296.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 08/25/2012 WHITE DDS, JEREMIE D 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 08/25/2012 VA ELECTRICAL APPLIANCE REPAIRER, MISA 296.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 08/25/2012 VA ELECTRICAL APPLIANCE REPAIRER, MISA 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 08/25/2012 VA ELECTRICAL APPLIANCE REPAIRER, MISA 296.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 08/25/2012 [facility] ELECTRICAL APPLIANCE REPAIRER, MISA 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 08/25/2012 MADL ELECTRICAL APPLIANCE REPAIRER, DARIAN L 296.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 08/25/2012 MADL ELECTRICAL APPLIANCE REPAIRER, DARIAN L 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 08/25/2012 LEONARDO DO, NORA K 296.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 08/25/2012 LEONARDO DO, NORA K 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 08/25/2012 LEONARDO DO, NORA K 296.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 08/25/2012 LEONARDO DO, NORA K 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 08/25/2012 LEONARDO DO, NORA K 296.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 08/25/2012 LEONARDO DO, NORA K 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 08/25/2012 VA ELECTRICAL APPLIANCE REPAIRER, MISA 296.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 08/25/2012 VA ELECTRICAL APPLIANCE REPAIRER, MISA 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 08/25/2012 MADL ELECTRICAL APPLIANCE REPAIRER, DARIAN L 296.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 08/25/2012 MADL ELECTRICAL APPLIANCE REPAIRER, DARIAN L 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 08/25/2012 RICK PHD, JESSICA A 296.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 08/25/2012 RICK PHD, JESSICA A 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 08/25/2012 MADL ELECTRICAL APPLIANCE REPAIRER, DARIAN L 296.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 08/25/2012 MADL ELECTRICAL APPLIANCE REPAIRER, DARIAN L 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 08/25/2012 [facility] ELECTRICAL APPLIANCE REPAIRER, MISA 296.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 08/25/2012 VA ELECTRICAL APPLIANCE REPAIRER, MISA 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 08/25/2012 RICK PHD, JESSICA A 296.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 08/25/2012 RICK PHD, JESSICA A 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 08/25/2012 VA ELECTRICAL APPLIANCE REPAIRER, MISA 296.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 08/25/2012 VA ELECTRICAL APPLIANCE REPAIRER, MISA 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 08/25/2012 MADL ELECTRICAL APPLIANCE REPAIRER, DARIAN L 296.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 08/25/2012 MADL ELECTRICAL APPLIANCE REPAIRER, DARIAN L 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 08/25/2012 FLOYD ELECTRICAL APPLIANCE REPAIRER, ANGEL R 296.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 08/25/2012 FLOYD ELECTRICAL APPLIANCE REPAIRER, ANGEL R 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 08/25/2012 MADL ELECTRICAL APPLIANCE REPAIRER, DARIAN L 296.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 08/25/2012 MADL ELECTRICAL APPLIANCE REPAIRER, DARIAN L 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 08/25/2012 VA ELECTRICAL APPLIANCE REPAIRER, MISA 296.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 08/25/2012 VA ELECTRICAL APPLIANCE REPAIRER, MISA 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 08/25/2012 MADL ELECTRICAL APPLIANCE REPAIRER, DARIAN L 296.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 08/25/2012 MADL ELECTRICAL APPLIANCE REPAIRER, DARIAN L 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80 MO BIPOLAR NOS 08/26/2012 LEONARDO DO, NORA K 296.80 MO BIPOLAR NOS 08/26/2012 LEONARDO DO, NORA K 296.80 MO BIPOLAR NOS 08/26/2012 LEONARDO DO, NORA K 296.80 MO BIPOLAR NOS 08/26/2012 VA ELECTRICAL APPLIANCE REPAIRER, MISA 296.80 MO BIPOLAR NOS 08/26/2012 MADL ELECTRICAL APPLIANCE REPAIRER, DARIAN L 296.80 MO BIPOLAR NOS 08/26/2012 RICK PHD, JESSICA Sabillon 296.80 MO BIPOLAR NOS 08/26/2012 MADL ELECTRICAL APPLIANCE REPAIRER, DARIAN L 296.80 MO BIPOLAR NOS 08/26/2012 VA ELECTRICAL APPLIANCE REPAIRER, MISA 296.80 MO BIPOLAR NOS 08/26/2012 RICK PHD, JESSICA Sabillon 296.80 MO BIPOLAR NOS 08/26/2012 VA ELECTRICAL APPLIANCE REPAIRER, MISA 296.80 MO BIPOLAR NOS 08/26/2012 MADL ELECTRICAL APPLIANCE REPAIRER, DARIAN L 296.80 MO BIPOLAR NOS 08/26/2012 FLOYD ELECTRICAL APPLIANCE REPAIRER, ANGEL R 296.80 MO BIPOLAR NOS 08/26/2012 MADL ELECTRICAL APPLIANCE REPAIRER, DARIAN L 296.80 MO BIPOLAR NOS 08/26/2012 VA ELECTRICAL APPLIANCE REPAIRER, MISA 296.80 MO BIPOLAR NOS 08/26/2012 MADL ELECTRICAL APPLIANCE REPAIRER, DARIAN L 296.80 MO BIPOLAR NOS 08/26/2012 VA ELECTRICAL APPLIANCE REPAIRER, MISA 296.80 MO BIPOLAR NOS 11/03/2012 RAOUL [...] MD V58.69 HIGH RISK MEDICATION 12/15/2012 VA ELECTRICAL APPLIANCE REPAIRER, MISA V58.69 HIGH RISK MEDICATION 12/15/2012 VA ELECTRICAL APPLIANCE REPAIRER, MISA V58.69 HIGH RISK MEDICATION 12/15/2012 JEREMIE ALEX DDS V58.69 HIGH RISK MEDICATION 12/15/2012 VA ELECTRICAL APPLIANCE REPAIRER, MISA V58.69 HIGH RISK MEDICATION 12/15/2012 VA ELECTRICAL APPLIANCE REPAIRER, MISA V58.69 HIGH RISK MEDICATION 12/15/2012 MADL ELECTRICAL APPLIANCE REPAIRERDARIAN V58.69 HIGH RISK MEDICATION 12/15/2012 LEONARDO DO, NORA K V58.69 HIGH RISK MEDICATION 12/15/2012 LEONARDO DO, NORA K V58.69 HIGH RISK MEDICATION 12/15/2012 LEONARDO DO, NORA K V58.69 HIGH RISK MEDICATION 12/15/2012 [facility] ELECTRICAL APPLIANCE REPAIRER, MISA V58.69 HIGH RISK MEDICATION 12/15/2012 MADL ELECTRICAL APPLIANCE REPAIRER, DARIAN L V58.69 HIGH RISK MEDICATION 12/15/2012 RICK PHD, JESSICA A V58.69 HIGH RISK MEDICATION 12/15/2012 MADL ELECTRICAL APPLIANCE REPAIRER, DARIAN L V58.69 HIGH RISK MEDICATION 12/15/2012 VA ELECTRICAL APPLIANCE REPAIRER, MISA V58.69 HIGH RISK MEDICATION 12/15/2012 RICK PHD, JESSICA A V58.69 HIGH RISK MEDICATION 12/15/2012 VA ELECTRICAL APPLIANCE REPAIRER, MISA V58.69 HIGH RISK MEDICATION 12/15/2012 MADL ELECTRICAL APPLIANCE REPAIRER, DARIAN L V58.69 HIGH RISK MEDICATION 12/15/2012 FLOYD ELECTRICAL APPLIANCE REPAIRER, ANGEL R V58.69 HIGH RISK MEDICATION 12/15/2012 MADL ELECTRICAL APPLIANCE REPAIRER, DARIAN L V58.69 HIGH RISK MEDICATION 12/15/2012 VA ELECTRICAL APPLIANCE REPAIRER, MISA V58.69 HIGH RISK MEDICATION 12/15/2012 MADL ELECTRICAL APPLIANCE REPAIRER, DARIAN L V58.69 HIGH RISK MEDICATION 12/15/2012 VA ELECTRICAL APPLIANCE REPAIRER, MISA V58.69 HIGH RISK MEDICATION 12/21/2012 BETY [...] PEDRAZA MD V74.5 STD SCREEN 12/21/2012 VA ELECTRICAL APPLIANCE REPAIRER, MISA V72.41 TEST NEGATIVE RESULT 12/21/2012 VA ELECTRICAL APPLIANCE REPAIRER, MISA V74.5 STD SCREEN 12/21/2012 VA ELECTRICAL APPLIANCE REPAIRER, MISA V72.41 TEST NEGATIVE RESULT 12/21/2012 VA ELECTRICAL APPLIANCE REPAIRER, MISA V74.5 STD SCREEN 12/21/2012 JEREMIE ALEX DDS V72.41 TEST NEGATIVE RESULT 12/21/2012 JEREMIE ALEX DDS V74.5 STD SCREEN 12/21/2012 VA ELECTRICAL APPLIANCE REPAIRER, MISA V72.41 TEST NEGATIVE RESULT 12/21/2012 VA ELECTRICAL APPLIANCE REPAIRER, MISA V74.5 STD SCREEN 12/21/2012 VA ELECTRICAL APPLIANCE REPAIRER, MISA V72.41 TEST NEGATIVE RESULT 12/21/2012 VA ELECTRICAL APPLIANCE REPAIRER, MISA V74.5 STD SCREEN 12/21/2012 MADL ELECTRICAL APPLIANCE REPAIRER, DARIAN L V72.41 TEST NEGATIVE RESULT 12/21/2012 MADL ELECTRICAL APPLIANCE REPAIRER, DARIAN L V74.5 STD SCREEN 12/21/2012 LEONARDO DO, NORA K V72.41 TEST NEGATIVE RESULT 12/21/2012 LEONARDO DO, NORA K V74.5 STD SCREEN 12/21/2012 LEONARDO DO, NORA K V72.41 TEST NEGATIVE RESULT 12/21/2012 LEONARDO DO, NORA K V74.5 STD SCREEN 12/21/2012 LEONARDO DO, NORA K V72.41 TEST NEGATIVE RESULT 12/21/2012 LEONARDO DO, NORA K V74.5 STD SCREEN 12/21/2012 VA ELECTRICAL APPLIANCE REPAIRER, MISA V72.41 TEST NEGATIVE RESULT 12/21/2012 VA ELECTRICAL APPLIANCE REPAIRER, MISA V74.5 STD SCREEN 12/21/2012 MADL ELECTRICAL APPLIANCE REPAIRER, DARIAN L V72.41 TEST NEGATIVE RESULT 12/21/2012 MADL ELECTRICAL APPLIANCE REPAIRER, DARIAN L V74.5 STD SCREEN 12/21/2012 RICK ALBERTO, JESSICA Sabillon V72.41 TEST NEGATIVE RESULT 12/21/2012 RICK PHD, JESSICA Sabillon V74.5 STD SCREEN 12/21/2012 MADL ELECTRICAL APPLIANCE REPAIRER, DARIAN L V72.41 TEST NEGATIVE RESULT 12/21/2012 MADL ELECTRICAL APPLIANCE REPAIRER, DARIAN L V74.5 STD SCREEN 12/21/2012 VA ELECTRICAL APPLIANCE REPAIRER, MISA V72.41 TEST NEGATIVE RESULT 12/21/2012 VA ELECTRICAL APPLIANCE REPAIRER, MISA V74.5 STD SCREEN 12/21/2012 RICK PHD, JESSICA Sabillon V72.41 TEST NEGATIVE RESULT 12/21/2012 RICK PHD, JESSICA A V74.5 STD SCREEN 12/21/2012 VA ELECTRICAL APPLIANCE REPAIRER, MISA V72.41 TEST NEGATIVE RESULT 12/21/2012 VA ELECTRICAL APPLIANCE REPAIRER, MISA V74.5 STD SCREEN 12/21/2012 MADL ELECTRICAL APPLIANCE REPAIRER, DARIAN L V72.41 TEST NEGATIVE RESULT 12/21/2012 MADL ELECTRICAL APPLIANCE REPAIRER, DARIAN L V74.5 STD SCREEN 12/21/2012 FLOYD ELECTRICAL APPLIANCE REPAIRER, ANGEL R V72.41 TEST NEGATIVE RESULT 12/21/2012 FLOYD ELECTRICAL APPLIANCE REPAIRER, ANGEL R V74.5 STD SCREEN 12/21/2012 MADL ELECTRICAL APPLIANCE REPAIRER, DARIAN L V72.41 TEST NEGATIVE RESULT 12/21/2012 MADL ELECTRICAL APPLIANCE REPAIRER, DARIAN L V74.5 STD SCREEN 12/21/2012 VA ELECTRICAL APPLIANCE REPAIRER, MISA V72.41 TEST NEGATIVE RESULT 12/21/2012 VA ELECTRICAL APPLIANCE REPAIRER, MISA V74.5 STD SCREEN 12/21/2012 MADL ELECTRICAL APPLIANCE REPAIRER, DARIAN L V72.41 TEST NEGATIVE RESULT 12/21/2012 MADL ELECTRICAL APPLIANCE REPAIRER, DARIAN L V74.5 STD SCREEN 12/21/2012 VA ELECTRICAL APPLIANCE REPAIRER, MISA V72.41 TEST NEGATIVE RESULT 12/21/2012 VA ELECTRICAL APPLIANCE REPAIRER, MISA V74.5 STD SCREEN 12/21/2012 GARFIELD BRIDGETTE [...] CONTUSION OF WRIST 03/17/2013 GOMEZ, PETER J ELECTRICAL APPLIANCE REPAIRER Ot 959.3 ELB/FOREARM/WRST INJ NOS 03/17/2013 JASON NOBLE Belén ELECTRICAL APPLIANCE REPAIRER Ot E000.8 OTHER EXTERNAL CAUSE STATUS 03/17/2013 NOBLE GOMEZ ELECTRICAL APPLIANCE REPAIRER Ot E849.0 ACCIDENT IN HOME 03/17/2013 NOBLE GOMEZ ELECTRICAL APPLIANCE REPAIRER Ot E917.4 STAT OB W/O SUB FALL [...] PEDRAZA MD 719.43 PAIN- WRIST 03/18/2013 VA ELECTRICAL APPLIANCE REPAIRER, MISA 719.43 PAIN- WRIST 03/18/2013 VA ELECTRICAL APPLIANCE REPAIRER, MISA 719.43 PAIN- WRIST 03/18/2013 JEREMIE ALEX DDS 719.43 PAIN- WRIST 03/18/2013 VA ELECTRICAL APPLIANCE REPAIRER, MISA 719.43 PAIN- WRIST 03/18/2013 VA ELECTRICAL APPLIANCE REPAIRER, MISA 719.43 PAIN- WRIST 03/18/2013 MADL ELECTRICAL APPLIANCE REPAIRER, DARIAN L 719.43 PAIN- WRIST 03/18/2013 LEONARDO DO, NORA K 719.43 PAIN- WRIST 03/18/2013 LEONARDO DO, NORA K 719.43 PAIN- WRIST 03/18/2013 LOENARDO DO, NORA K 719.43 PAIN- WRIST 03/18/2013 VA ELECTRICAL APPLIANCE REPAIRER, MISA 719.43 PAIN- WRIST 03/18/2013 MADL ELECTRICAL APPLIANCE REPAIRER, DARIAN L 719.43 PAIN- WRIST 03/18/2013 RICK PHD, JESSICA Sabillon 719.43 PAIN- WRIST 03/18/2013 MADL ELECTRICAL APPLIANCE REPAIRER, DARIAN L 719.43 PAIN- WRIST 03/18/2013 VA ELECTRICAL APPLIANCE REPAIRER, MISA 719.43 PAIN- WRIST 03/18/2013 RICK PHD, JESSICA Sabillon 719.43 PAIN- WRIST 03/18/2013 VA ELECTRICAL APPLIANCE REPAIRER, MISA 719.43 PAIN- WRIST 03/18/2013 MADL ELECTRICAL APPLIANCE REPAIRER, DARIAN L 719.43 PAIN- WRIST 03/18/2013 FLOYD ELECTRICAL APPLIANCE REPAIRER, ANGEL R 719.43 PAIN- WRIST 03/18/2013 MADL ELECTRICAL APPLIANCE REPAIRER, DARIAN L 719.43 PAIN- WRIST 03/18/2013 AV ELECTRICAL APPLIANCE REPAIRER, MISA 719.43 PAIN- WRIST 03/18/2013 MADL ELECTRICAL APPLIANCE REPAIRER, DARIAN L 719.43 PAIN- WRIST 03/18/2013 VA ELECTRICAL APPLIANCE REPAIRER, MISA 719.43 PAIN- WRIST 06/04/2013 DOMINIC BAL [...] BALTA PEDRAZA MD 788.1 DYSURIA 06/04/2013 VA ELECTRICAL APPLIANCE REPAIRER, MISA 462 SORE THROAT ACUTE 06/04/2013 VA ELECTRICAL APPLIANCE REPAIRER, MISA 719.46 joint pain in both knees 06/04/2013 VA ELECTRICAL APPLIANCE REPAIRER, MISA 788.1 DYSURIA 06/04/2013 VA ELECTRICAL APPLIANCE REPAIRER, MISA 462 SORE THROAT ACUTE 06/04/2013 VA ELECTRICAL APPLIANCE REPAIRER, MISA 719.46 joint pain in both knees 06/04/2013 VA ELECTRICAL APPLIANCE REPAIRER, MISA 788.1 DYSURIA 06/04/2013 WHITE DDS, JEREMIE D 462 SORE THROAT ACUTE 06/04/2013 WHITE DDS, JEREMIE D 719.46 joint pain in both knees 06/04/2013 WHITE DDS, JEREMIE D 788.1 DYSURIA 06/04/2013 VA ELECTRICAL APPLIANCE REPAIRER, MISA 462 SORE THROAT ACUTE 06/04/2013 VA ELECTRICAL APPLIANCE REPAIRER, MISA 719.46 joint pain in both knees 06/04/2013 VA ELECTRICAL APPLIANCE REPAIRER, MISA 788.1 DYSURIA 06/04/2013 VA ELECTRICAL APPLIANCE REPAIRER, MISA 462 SORE THROAT ACUTE 06/04/2013 VA ELECTRICAL APPLIANCE REPAIRER, MISA 719.46 joint pain in both knees 06/04/2013 VA ELECTRICAL APPLIANCE REPAIRER, MISA 788.1 DYSURIA 06/04/2013 MADL ELECTRICAL APPLIANCE REPAIRER, DARIAN L 462 SORE THROAT ACUTE 06/04/2013 MADL ELECTRICAL APPLIANCE REPAIRER, DARIAN L 719.46 joint pain in both knees 06/04/2013 MADL ELECTRICAL APPLIANCE REPAIRER, DARIAN L 788.1 DYSURIA 06/04/2013 LEONARDO DO, [...] DO, NORA K 788.1 DYSURIA 06/04/2013 VA ELECTRICAL APPLIANCE REPAIRER, MISA 462 SORE THROAT ACUTE 06/04/2013 VA ELECTRICAL APPLIANCE REPAIRER, MISA 719.46 joint pain in both knees 06/04/2013 VA ELECTRICAL APPLIANCE REPAIRER, MISA 788.1 DYSURIA 06/04/2013 MADL ELECTRICAL APPLIANCE REPAIRER, DARIAN L 462 SORE THROAT ACUTE 06/04/2013 MADL ELECTRICAL APPLIANCE REPAIRER, DARIAN L 719.46 joint pain in both knees 06/04/2013 MADL ELECTRICAL APPLIANCE REPAIRER, DARIAN L 788.1 DYSURIA 06/04/2013 RICK ALBERTO, JESSICA A 462 SORE THROAT ACUTE 06/04/2013 RICK ALBERTO, JESSICA A 719.46 joint pain in both knees 06/04/2013 RICK ALBERTO, JESSICA A 788.1 DYSURIA 06/04/2013 MADL ELECTRICAL APPLIANCE REPAIRER, DARIAN L 462 SORE THROAT ACUTE 06/04/2013 MADL ELECTRICAL APPLIANCE REPAIRER, DARIAN L 719.46 joint pain in both knees 06/04/2013 MADL ELECTRICAL APPLIANCE REPAIRER, DARIAN L 788.1 DYSURIA 06/04/2013 VA ELECTRICAL APPLIANCE REPAIRER, MISA 462 SORE THROAT ACUTE 06/04/2013 VA ELECTRICAL APPLIANCE REPAIRER, MISA 719.46 joint pain in both knees 06/04/2013 VA ELECTRICAL APPLIANCE REPAIRER, MISA 788.1 DYSURIA 06/04/2013 RICK PHD, JESSICA A 462 SORE THROAT ACUTE 06/04/2013 RICK PHD, JESSICA A 719.46 joint pain in both knees 06/04/2013 RICK PHD, JESSICA A 788.1 DYSURIA 06/04/2013 VA ELECTRICAL APPLIANCE REPAIRER, MISA 462 SORE THROAT ACUTE 06/04/2013 VA ELECTRICAL APPLIANCE REPAIRER, MISA 719.46 joint pain in both knees 06/04/2013 VA ELECTRICAL APPLIANCE REPAIRER, MISA 788.1 DYSURIA 06/04/2013 MADL ELECTRICAL APPLIANCE REPAIRER, DARIAN L 462 SORE THROAT ACUTE 06/04/2013 MADL ELECTRICAL APPLIANCE REPAIRER, DARIAN L 719.46 joint pain in both knees 06/04/2013 MADL ELECTRICAL APPLIANCE REPAIRER, DARIAN L 788.1 DYSURIA 06/04/2013 FLOYD ELECTRICAL APPLIANCE REPAIRER, ANGEL R 462 SORE THROAT ACUTE 06/04/2013 FLOYD ELECTRICAL APPLIANCE REPAIRER, ANGEL R 719.46 joint pain in both knees 06/04/2013 FLOYD ELECTRICAL APPLIANCE REPAIRER, ANGEL R 788.1 DYSURIA 06/04/2013 MADL ELECTRICAL APPLIANCE REPAIRER, DARIAN L 462 SORE THROAT ACUTE 06/04/2013 MADL ELECTRICAL APPLIANCE REPAIRER, DARIAN L 719.46 joint pain in both knees 06/04/2013 MADL ELECTRICAL APPLIANCE REPAIRER, DARIAN L 788.1 DYSURIA 06/04/2013 VA ELECTRICAL APPLIANCE REPAIRER, MISA 462 SORE THROAT ACUTE 06/04/2013 VA ELECTRICAL APPLIANCE REPAIRER, MISA 719.46 joint pain in both knees 06/04/2013 VA ELECTRICAL APPLIANCE REPAIRER, MISA 788.1 DYSURIA 06/04/2013 MADL ELECTRICAL APPLIANCE REPAIRER, DARIAN L 462 SORE THROAT ACUTE 06/04/2013 MADL ELECTRICAL APPLIANCE REPAIRER, DARIAN L 719.46 joint pain in both knees 06/04/2013 MADL ELECTRICAL APPLIANCE REPAIRER, DARIAN L 788.1 DYSURIA 06/04/2013 VA ELECTRICAL APPLIANCE REPAIRER, MISA 462 SORE THROAT ACUTE 06/04/2013 VA ELECTRICAL APPLIANCE REPAIRER, MISA 719.46 joint pain in both knees 06/04/2013 VA ELECTRICAL APPLIANCE REPAIRER, MISA 788.1 DYSURIA 06/10/2013 VALERIANO SEYMOUR, DOMINIC [...] PEDRAZA MD 789.00 abdominal pain 06/10/2013 VA ELECTRICAL APPLIANCE REPAIRER, MISA 782.0 tingling (paresthesia) 06/10/2013 VA ELECTRICAL APPLIANCE REPAIRER, MISA 789.00 abdominal pain 06/10/2013 VA ELECTRICAL APPLIANCE REPAIRER, MISA 782.0 tingling (paresthesia) 06/10/2013 VA ELECTRICAL APPLIANCE REPAIRER, MISA 789.00 abdominal pain 06/10/2013 JEREMIE ALEX DDS 782.0 tingling (paresthesia) 06/10/2013 JEREMIE ALEX DDS 789.00 abdominal pain 06/10/2013 VA ELECTRICAL APPLIANCE REPAIRER, MISA 782.0 tingling (paresthesia) 06/10/2013 VA ELECTRICAL APPLIANCE REPAIRER, MISA 789.00 abdominal pain 06/10/2013 VA ELECTRICAL APPLIANCE REPAIRER, MISA 782.0 tingling (paresthesia) 06/10/2013 VA ELECTRICAL APPLIANCE REPAIRER, MISA 789.00 abdominal pain 06/10/2013 MADL ELECTRICAL APPLIANCE REPAIRER, DARIAN L 782.0 tingling (paresthesia) 06/10/2013 MADL ELECTRICAL APPLIANCE REPAIRER, DARIAN L 789.00 abdominal pain 06/10/2013 LEONARDO DO, NORA K 782.0 tingling (paresthesia) 06/10/2013 LEONARDO DO, NORA K 789.00 abdominal pain 06/10/2013 LEONARDO DO, NORA K 782.0 tingling (paresthesia) 06/10/2013 LEONARDO DO, NORA K 789.00 abdominal pain 06/10/2013 LEONARDO DO, NORA K 782.0 tingling (paresthesia) 06/10/2013 LEONARDO DO, NORA K 789.00 abdominal pain 06/10/2013 VA ELECTRICAL APPLIANCE REPAIRER, MISA 782.0 tingling (paresthesia) 06/10/2013 VA ELECTRICAL APPLIANCE REPAIRER, MISA 789.00 abdominal pain 06/10/2013 MADL ELECTRICAL APPLIANCE REPAIRER, DARIAN L 782.0 tingling (paresthesia) 06/10/2013 MADL ELECTRICAL APPLIANCE REPAIRER, DARIAN L 789.00 abdominal pain 06/10/2013 RICK PHD, JESSICA A 782.0 tingling (paresthesia) 06/10/2013 RICK PHD, JESSICA A 789.00 abdominal pain 06/10/2013 MADL ELECTRICAL APPLIANCE REPAIRER, DARIAN L 782.0 tingling (paresthesia) 06/10/2013 MADL ELECTRICAL APPLIANCE REPAIRER, DARIAN L 789.00 abdominal pain 06/10/2013 VA ELECTRICAL APPLIANCE REPAIRER, MISA 782.0 tingling (paresthesia) 06/10/2013 VA ELECTRICAL APPLIANCE REPAIRER, MISA 789.00 abdominal pain 06/10/2013 RICK PHD, JESSICA A 782.0 tingling (paresthesia) 06/10/2013 RICK PHD, JESSICA A 789.00 abdominal pain 06/10/2013 VA ELECTRICAL APPLIANCE REPAIRER, MISA 782.0 tingling (paresthesia) 06/10/2013 VA ELECTRICAL APPLIANCE REPAIRER, MISA 789.00 abdominal pain 06/10/2013 MADL ELECTRICAL APPLIANCE REPAIRER, DARIAN L 782.0 tingling (paresthesia) 06/10/2013 MADL ELECTRICAL APPLIANCE REPAIRER, DARIAN L 789.00 abdominal pain 06/10/2013 LFOYD ELECTRICAL APPLIANCE REPAIRER, ANGEL R 782.0 tingling (paresthesia) 06/10/2013 FLOYD ELECTRICAL APPLIANCE REPAIRER, ANGEL R 789.00 abdominal pain 06/10/2013 MADL ELECTRICAL APPLIANCE REPAIRER, DARIAN L 782.0 tingling (paresthesia) 06/10/2013 MADL ELECTRICAL APPLIANCE REPAIRER, DARIAN L 789.00 abdominal pain 06/10/2013 VA ELECTRICAL APPLIANCE REPAIRER, MISA 782.0 tingling (paresthesia) 06/10/2013 VA ELECTRICAL APPLIANCE REPAIRER, MISA 789.00 abdominal pain 06/10/2013 MADL ELECTRICAL APPLIANCE REPAIRER, DARIAN L 782.0 tingling (paresthesia) 06/10/2013 MADL ELECTRICAL APPLIANCE REPAIRER, DARIAN L 789.00 abdominal pain 06/10/2013 VA ELECTRICAL APPLIANCE REPAIRER, MISA 782.0 tingling (paresthesia) 06/10/2013 [facility] ELECTRICAL APPLIANCE REPAIRER, MISA 789.00 abdominal pain 07/02/2013 LEONARDO DO, NORA K 786.09 RESPIRATORY ABNORMALITY OTHER 07/02/2013 LEONARDO DO, NORA K 786.09 RESPIRATORY ABNORMALITY OTHER 07/02/2013 LEONARDO DO, NORA K 786.09 RESPIRATORY ABNORMALITY OTHER 07/02/2013 MILO SEYMOUR, BALTA 786.09 RESPIRATORY ABNORMALITY OTHER 07/02/2013 [facility] ELECTRICAL APPLIANCE REPAIRER, MISA 786.09 RESPIRATORY ABNORMALITY OTHER 07/02/2013 [facility] ELECTRICAL APPLIANCE REPAIRER, MISA 786.09 RESPIRATORY ABNORMALITY OTHER 07/02/2013 ISAI SPARKSS, JEREMIE Pina 786.09 RESPIRATORY ABNORMALITY OTHER 07/02/2013 [facility] ELECTRICAL APPLIANCE REPAIRER, MISA 786.09 RESPIRATORY ABNORMALITY OTHER 07/02/2013 [facility] ELECTRICAL APPLIANCE REPAIRER, MISA 786.09 RESPIRATORY ABNORMALITY OTHER 07/02/2013 [facility] ELECTRICAL APPLIANCE REPAIRER, DARIAN L 786.09 RESPIRATORY ABNORMALITY OTHER 07/02/2013 LEONARDO DO, NORA K 786.09 RESPIRATORY ABNORMALITY OTHER 07/02/2013 LEONARDO DO, NORA K 786.09 RESPIRATORY ABNORMALITY OTHER 07/02/2013 LEONARDO DO, NORA K 786.09 RESPIRATORY ABNORMALITY OTHER 07/02/2013 [facility] ELECTRICAL APPLIANCE REPAIRER, MISA 786.09 RESPIRATORY ABNORMALITY OTHER 07/02/2013 [facility] ELECTRICAL APPLIANCE REPAIRER, DARIAN L 786.09 RESPIRATORY ABNORMALITY OTHER 07/02/2013 RICK ALBERTO, JESSICA Sabillon 786.09 RESPIRATORY ABNORMALITY OTHER 07/02/2013 [facility] ELECTRICAL APPLIANCE REPAIRER, DARIAN L 786.09 RESPIRATORY ABNORMALITY OTHER 07/02/2013 [facility] ELECTRICAL APPLIANCE REPAIRER, MISA 786.09 RESPIRATORY ABNORMALITY OTHER 07/02/2013 RICK PHD, JESSICA Sabillon 786.09 RESPIRATORY ABNORMALITY OTHER 07/02/2013 [facility] ELECTRICAL APPLIANCE REPAIRER, MISA 786.09 RESPIRATORY ABNORMALITY OTHER 07/02/2013 [facility] ELECTRICAL APPLIANCE REPAIRER, DARIAN L 786.09 RESPIRATORY ABNORMALITY OTHER 07/02/2013 ANGEL BARRIENTOS APRN 786.09 RESPIRATORY ABNORMALITY OTHER 07/02/2013 [facility] ELECTRICAL APPLIANCE REPAIRER, DARIAN L 786.09 RESPIRATORY ABNORMALITY OTHER 07/02/2013 [facility] ELECTRICAL APPLIANCE REPAIRER, MISA 786.09 RESPIRATORY ABNORMALITY OTHER 07/02/2013 [facility] ELECTRICAL APPLIANCE REPAIRER, DARIAN L 786.09 RESPIRATORY ABNORMALITY OTHER 07/02/2013 [facility] ELECTRICAL APPLIANCE REPAIRER, MISA 786.09 RESPIRATORY ABNORMALITY OTHER 08/05/2013 LEONARDO DO, NORA K 733.92 CHONDROMALACIA 08/05/2013 LEONARDO DO, NORA K 733.92 CHONDROMALACIA 08/05/2013 MILO SEYMOUR, BALTA 733.92 CHONDROMALACIA 08/05/2013 [facility] ELECTRICAL APPLIANCE REPAIRER, MISA 733.92 CHONDROMALACIA 08/05/2013 [facility] ELECTRICAL APPLIANCE REPAIRER, MISA 733.92 CHONDROMALACIA 08/05/2013 JEREMIE ALEX DDS 733.92 CHONDROMALACIA 08/05/2013 [facility] ELECTRICAL APPLIANCE REPAIRER, MISA 733.92 CHONDROMALACIA 08/05/2013 [facility] ELECTRICAL APPLIANCE REPAIRER, MISA 733.92 CHONDROMALACIA 08/05/2013 [facility] ELECTRICAL APPLIANCE REPAIRER, DARIAN L 733.92 CHONDROMALACIA 08/05/2013 LEONARDO DO, NORA K 733.92 CHONDROMALACIA 08/05/2013 LEONARDO DO, NORA K 733.92 CHONDROMALACIA 08/05/2013 LEONARDO DO, NORA K 733.92 CHONDROMALACIA 08/05/2013 [facility] ELECTRICAL APPLIANCE REPAIRER, MISA 733.92 CHONDROMALACIA 08/05/2013 [facility] ELECTRICAL APPLIANCE REPAIRER, DARIAN L 733.92 CHONDROMALACIA 08/05/2013 RICK ALBERTO, JESSICA Sabillon 733.92 CHONDROMALACIA 08/05/2013 [facility] ELECTRICAL APPLIANCE REPAIRER, DARIAN L 733.92 CHONDROMALACIA 08/05/2013 [facility] ELECTRICAL APPLIANCE REPAIRER, MISA 733.92 CHONDROMALACIA 08/05/2013 RICK PHD, JESSICA Sabillon 733.92 CHONDROMALACIA 08/05/2013 [facility] ELECTRICAL APPLIANCE REPAIRER, MISA 733.92 CHONDROMALACIA 08/05/2013 [facility] ELECTRICAL APPLIANCE REPAIRER, DARIAN L 733.92 CHONDROMALACIA 08/05/2013 ANGEL BARRIENTOS APRN 733.92 CHONDROMALACIA 08/05/2013 [facility] ELECTRICAL APPLIANCE REPAIRER, DARIAN L 733.92 CHONDROMALACIA 08/05/2013 [facility] ELECTRICAL APPLIANCE REPAIRER, MISA 733.92 CHONDROMALACIA 08/05/2013 [facility] ELECTRICAL APPLIANCE REPAIRER, DARIAN L 733.92 CHONDROMALACIA 08/05/2013 [facility] ELECTRICAL APPLIANCE REPAIRER, MISA 733.92 CHONDROMALACIA 10/03/2013 NOBLE GOMEZ APRN Ot 620.2 OVARIAN CYST NEC/NOS 10/03/2013 NOBLE GOMEZ APRN Ot 789.00 ABDOMINAL PAIN, UNSPECIFIED SITE 11/01/2013 NOBLE GOMEZ APRN Ot 338.29 OTHER CHRONIC PAIN 11/01/2013 NOBLE GOMEZ APRN Ot 620.2 OVARIAN CYST NEC/NOS 11/01/2013 NOBLE GOMEZ ELECTRICAL APPLIANCE REPAIRER Ot 789.00 ABDOMINAL PAIN, UNSPECIFIED SITE 11/03/2013 DANIE ELECTRICAL APPLIANCE REPAIRER, DARIAN L 620.2 OVARIAN CYST 11/03/2013 LEONARDO DO, NORA K 620.2 OVARIAN CYST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
[2018-10-19 22:27] VITALS: BP 132/105
== END 2018-10-19 22:30 | disposition home or self-care (01) ==
LOC: EDUNIT# 22:02 → ER 22:04
DX: S60.222A Contusion of left hand, initial encounter (principal); J45.998 Other asthma; G43.909 Migraine, unspecified, not intractable, without status migrainosus; F41.9 Anxiety disorder, unspecified; Z90.49 Acquired absence of other specified parts of digestive tract; Z98.51 Tubal ligation status; V29.9XXA Motorcycle rider (driver) (passenger) injured in unspecified traffic accident, initial encounter
CPT/HCPCS: 99282

== ENCOUNTER 2018-10-26 20:13 | Emergency (ER) | payer SELFPAY ==
[~2018-10-26] VITALS: Ht 172.7 cm; Wt 103.4 kg
[~2018-10-26 20:13] MED LIST changes: +NAPR-1071 PO
[2018-10-26] MEDS ORDERED: D-ME118S33 PO (20:20)
--- NOTE | 2018-10-26 20:20 | ED Cough/URI ---
General Stated Complaint: SORE THROAT,COUGH Source: patient Exam Limitations: no limitations History of Present Illness Date Seen by Provider: Oct 26, 2018 Time Seen by Provider: 20:24 Initial Comments To ER with a two-week history of intermittently productive cough, sore throat, sneezing. likely needed to do anything she would also like a work note on Review Allergies and Home Medications Allergies Coded Allergies: No Known Drug Allergies (Unverified , 07/27/10) Home Medications Cyclobenzaprine HCl 10 Mg Tablet, 10 MG PO Q8H PRN for SPASMS Prescribed by: KARLA VIRAMONTES on 10/08/182109 D-Methorphan Hb/P-Epd HCl/Bpm 118 Ml Syrup, 5 ML PO Q4H PRN for CONGESTION Prescribed by: NOBLE GOMEZ on 10/26/182019 Hydrocodone Bit/Acetaminophen 1 Tab Tab, 1 EACH PO Q4-6HR PRN for PAIN-MODERATE Prescribed by: KARLA VIRAMONTES on 10/08/182109 Naproxen 500 Mg Tablet, 500 MG PO BID PRN for PAIN-SEVERE Prescribed by: NOBLE GOMEZ on 10/19/182215 Patient Home Medication List Home Medication List Reviewed: Yes Review of Systems Review of Systems Constitutional: see HPI EENTM: see HPI Respiratory: see HPI Cardiovascular: see HPI Genitourinary: no symptoms reported Musculoskeletal: no symptoms reported Skin: no symptoms reported Psychiatric/Neurological: No Symptoms Reported Hematologic/Lymphatic: No Symptoms Reported Immunological/Allergic: no symptoms reported Past Vwldulm-Hnguaa-Ukoveo Hx Patient Social History Alcohol Beverage of Choice: Beer Drug of Choice: cannibus, meth 2nd Hand Smoke Exposure: No Recent Foreign Travel: No Contact w/Someone Who Travel: No Recent Hopitalizations: No Immunizations Up To Date Tetanus Booster (TDap): Unknown PED Vaccines UTD: Yes Date of Influenza Vaccine: Jan 05, 2012 Seasonal Allergies Seasonal Allergies: No Past Medical History Surgeries: Yes ( X 2) Appendectomy, Section, Gallbladder, Tubal Ligation Respiratory: Yes ("WEATHER-INDUCED ASTHMA" ) Asthma Cardiac: No Neurological: Yes Headaches /Migraines Reproductive Disorders: No Female Reproductive 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 oz. 103.510155yv; 33.45 BMI Method:Stated General Appearance: WD/WN, no apparent distress Eyes: Bilateral Eye Normal Inspection, Bilateral Eye PERRL, Bilateral Eye EOMI HEENT: PERRL/EOMI, normal ENT inspection Respiratory: no respiratory distress, no accessory muscle use Gastrointestinal: normal bowel sounds, non tender, soft Neurologic/Psychiatric: alert, normal mood/affect, oriented x 3 Skin: normal color, warm/dry Progress/Results/Core Measures Suspected Sepsis SIRS Temperature: Pulse: Respiratory Rate: Blood Pressure / Mean: Results/Orders Vital Signs/I&O 10/26/18 10/26/18 10/26/18 20:22 20:22 20:25 Temp 97.5 97.5 Pulse 80 80 Resp 18 18 B/P (MAP) 133/85 (101) 133/85 (101) Pulse Ox 100 O2 Delivery Room Air Room Air Room Air Capillary Refill : Departure Impression Primary Impression: Viral syndrome Disposition: HOME, SELF-CARE Condition: Stable Departure-Patient Inst. Decision time for Depature: 20:19 Ref[place]: [facility] [place] Primary Care Physician Patient Instructions: Viral Syndrome (DC) Add. Discharge Instructions: 1. Tonight you can use [id number] Benadryl, Tylenol and Motrin. Tomorrow start using a decongestant cough medication. Scripts D-Methorphan Hb/P-Epd HCl/Bpm (Bromfed Dm Cough Syrup) 118 Ml Syrup 5 ML PO Q4H PRN for CONGESTION for 7 Days, #120 ML Prov: NOBLE GOMEZ APRN 10/26/18 Work/School Note: Work Release Form Date Seen in the Emergency Department: Oct 26, 2018 Return to Work: Oct 27, 2018 NOBLE GOMEZ APRN Oct 26, 2018 20:20
[2018-10-26 20:25] VITALS: BP 133/85
--- OUTSIDE RECORDS SUMMARY | 2018-10-27 01:45 | XMS REPORT | Encounter Summary ---
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 Name Role Phone PCP Unavailable Reason for Visit * Reason Comments Head Injury Encounter Details Care Team Description [place] [address] [place] [address] Closed head injury, initial encounter (Primary Dx) 08/23/2017 Emergency [facility] [address] [place] [id number] Social History Date Tobacco Use Types Packs/Day Years Used Never Smoker Smokeless Tobacco: Never Used Drinks/Week oz/Week Comments Alcohol Use socially Yes Sex Assigned at Date Recorded Female Industry Job Start Date Occupation Not on file Not on file Not on file Travel End Travel History Travel Start No recent travel history available. documented as of this encounter Last Filed Vital Signs Reading Time Taken Comments Vital Sign 144/102 08/23/2017 8:16 PM CDT Blood Pressure 78 08/23/2017 8:16 PM CDT Pulse 36.8 C (98.2 F) 08/23/2017 5:50 PM CDT Temperature 18 08/23/2017 8:16 PM CDT Respiratory Rate 99% 08/23/2017 5:50 PM CDT Oxygen Saturation - - Inhaled Oxygen Concentration 95.3 kg (210 lb) 08/23/2017 5:50 PM CDT Weight 172.7 cm (5' 8") 08/23/2017 5:50 PM CDT Height 31.93 08/23/2017 5:50 PM CDT Body Mass Index documented in this encounter Discharge Instructions * Attachments The following attachments cannot be sent through Care Everywhere.* Concussion, Coping with ([place]) documented in this encounter ED Notes * Ernesto Santos MD - 08/23/2017 6:36 PM CDT 08/23/2017 [facility] History Chief Complaint Patient presents with Head Injury Patient presents emergency department for head pain. She states she fell from a horse approximately 2 hours prior to arrival. Patient has been seen multiple t imes this year for multiple head injuries and had multiple CAT scans. She state s she got knocked out today. She has no nausea vomiting has normal gait on arri vidal she has no obvious injuries at this time. Past Medical History: Diagnosis Date Migraine Seizure (HCC) one time post . Past Surgical History: Procedure Laterality Date APPENDECTOMY SECTION DENTAL SURGERY No family history on file. Social History Substance Use Topics Smoking status: Never Smoker Smokeless tobacco: Never Used Alcohol use Yes Comment: socially Review of Systems Constitutional: Negative. HENT: Negative. Eyes: Negative. Respiratory: Negative. Cardiovascular: Negative. Gastrointestinal: Negative. Endocrine: Negative. Genitourinary: Negative. Musculoskeletal: Positive for neck pain and neck stiffness. Neurological: Positive for headaches. All other systems reviewed and are negative. Physical Exam BP 126/69 (BP Location: Right arm) | Pulse 99 | Temp 36.8 C (98.2 F) (Oral ) | Resp 16 | Ht 1.727 m (5' 8") | Wt 95.3 kg (210 lb) | LMP 08/01/2017 | S pO2 99% | BMI 31.93 kg/m Weight Method: Stated Physical Exam Constitutional: She is oriented to person, place, and time. She appears well-dev eloped and well-nourished. HENT: Head: Normocephalic and atraumatic. Eyes: Conjunctivae and EOM are normal. Pupils are equal, round, and reactive to light. Neck: Normal range of motion. Neck supple. Cardiovascular: Normal rate and regular rhythm. Pulmonary/Chest: Effort normal and breath sounds normal. Abdominal: Soft. Neurological: She is alert and oriented to person, place, and time. Skin: Skin is warm and dry. Psychiatric: She has a normal mood and affect. Vitals reviewed. ED Course Procedures MDM Number of Diagnoses or Management Options Closed head injury, initial encounter: Diagnosis management comments: Discussed negative CT head negative CT C-spine wi patient she will follow with her primary care physician as an outpatient we d iscussed concussion protocols with her. She was given return precautions she un derstands and agrees with plan. ED Clinical Impression 1. Closed head injury, initial encounter Patient ED Dispo ED Disposition Discharge Ernesto Santos MD 08/23/171951 * Crissy Vasquez RN - 08/23/2017 6:09 PM CDT Pt to ed from home via pov w/ primary complaint of parietal head pain x 2hours s rashmi falling from horse. Reports loc x <1min. Denies neck pain. Denies numbness, tingling, vision changes, back pain. documented in this encounter Plan of Treatment Not on filedocumented as of this encounter Procedures Comments Procedure Name Priority Date/Time Associated Diagnosis CT HEAD WO CONTRAST STAT 08/23/2017 7:[address] CERVICAL SPINE WO STAT 08/23/2017 CONTRAST 6:33 PM CDT documented in this encounter Results * CT Head wo contrast (08/23/2017 7:15 PM CDT) Specimen Impressions Performed At 1. No CT evidence of intracranial hemorrhage, mass effect, or acute [facility] territorial infarct. 2. No evidence of acute calvarial fracture. CT CERVICAL SPINE WO CONTRAST Date: August 23, 2017 Indication:fall from horse headache and neck pain Technique: Multiple axial CT images of the cervical spine were obtained and examined without contrast.Sagittal and coronal reconstructions were performed at the workstation. Findings:The vertebral bodies maintain normal height and alignment. There is no evidence of acute fracture. Multilevel mild intervertebral disc space loss in the mid cervical spine.The facets are properly aligned. No odontoid fracture is seen.Prevertebral soft tissues and epiglottis are unremarkable. IMPRESSION: 1. No CT evidence of acute fracture or listhesis. 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 One or more of the following dose reduction techniques were utilized: *Automated exposure control (AEC) *Adjustment of mA and/or kV according to patient size -Use of iterative reconstruction technique -CT scan done according to ALARA, or ALARA/IMAGE GENTLY Narrative Performed At Patient: JIGNESH SOLER Sex#:F # [id number] Reilly#:[id number] Location:[facility] ED ED 04-07Accession#: [id number] Procedure Requested:[id number] CT HEAD WO CONTRAST Reason for Exam:fall from horse pain Exam Ordered:08/23/20171755 Exam Date/Time:15 Begin exam date/time:08/23/20171837 CT HEAD WO CONTRAST, CT CERVICAL SPINE WO CONTRAST Date: August 23, 2017 Indication:fall from horse headache and neck pain Technique: Noncontrast CT of the brain was performed with axial images acquired from skull base to vertex. Comparison: None available. Findings: There are no acute intra or extra-axial fluid collections. Ventricles are of normal size, shape, and morphology. No mass effect or midline shift is present. The flores-white matter differentiation is normal. The visualized portions of the orbits, and paranasal sinuses, and mastoids are normal. No fractures are identified. Topogram demonstrates no lytic lesions or fractures. Procedure Note Interface, Rad Results In - 08/23/2017 7:27 PM CDT Patient: BERNIE SOLER Sex#: F # [id number] Reilly#: [id number] Location: [facility] ED ED 04-07 Procedure Requested: [id number] CT HEAD WO CONTRAST Reason for Exam: fall from horse pain Exam Ordered: 08/23/2017 1755 Exam Date/Time: 08/23/2017 191 Begin exam date/time: 08/23/[address] HEAD WO CONTRAST, CT CERVICAL SPINE WO CONTRAST Date: August 23, 2017 Indication: fall from horse headache and neck pain Technique: Noncontrast CT of the brain was performed with axial images acquired from skull base to vertex. Comparison: None available. Findings: There are no acute intra or extra-axial fluid collections. Ventricles are of normal size, shape, and morphology. No mass effect or midline shift is present. The flores-white matter differentiation is normal. The visualized portions of the orbits, and paranasal sinuses, and mastoids are normal. No fractures are identified. Topogram demonstrates no lytic lesions or fractures. IMPRESSION 1. No CT evidence of intracranial hemorrhage, mass effect, or acute territorial infarct. 2. No evidence of acute calvarial fracture. CT CERVICAL SPINE WO CONTRAST Date: August 23, 2017 Indication: fall from horse headache and neck pain Technique: Multiple axial CT images of the cervical spine were obtained and examined without contrast. Sagittal and coronal reconstructions were performed at the workstation. Findings: The vertebral bodies maintain normal height and alignment. There is no evidence of acute fracture. Multilevel mild intervertebral disc space loss in the mid cervical spine. The facets are properly aligned. No odontoid fracture is seen. Prevertebral soft tissues and epiglottis are unremarkable. IMPRESSION: 1. No CT evidence of acute fracture or listhesis. 2. 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 One or more of the following dose reduction techniques were utilized: *Automated exposure control (AEC) *Adjustment of mA and/or kV according to patient size -Use of iterative reconstruction technique -CT scan done according to ALARA, or ALARA/IMAGE GENTLY Performing Organization Address City/State/Zipcode Phone Number [facility] * CT Cervical Spine wo contrast (08/23/2017 6:33 PM CDT) Specimen Impressions Performed At 1. No CT evidence of intracranial hemorrhage, mass effect, or [facility]. 2. No evidence of acute calvarial fracture. CT CERVICAL SPINE WO CONTRAST Date: August 23, 2017 Indication:fall from horse headache and neck pain Technique: Multiple axial CT images of the cervical spine were obtained and examined without contrast.Sagittal and coronal reconstructions were performed at the workstation. Findings:The vertebral bodies maintain normal height and alignment. There is no evidence of acute fracture. Multilevel mild intervertebral disc space loss in the mid cervical spine.The facets are properly aligned. No odontoid fracture is seen.Prevertebral soft tissues and epiglottis are unremarkable. IMPRESSION: 1. No CT evidence of acute fracture or listhesis. 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 One or more of the following dose reduction techniques were utilized: *Automated exposure control (AEC) *Adjustment of mA and/or kV according to patient size -Use of iterative reconstruction technique -CT scan done according to ALARA, or ALARA/IMAGE GENTLY Narrative Performed At Patient: JIGNESH SOLER Sex#:F # [id number] Reilly#:[id number] Location:[facility] ED ED 04-07Accession#: [id number] Procedure Requested:[id number] CT CERVICAL SPINE WO CONTRAST Reason for Exam:fall from horse pain Exam Ordered: Exam Date/Time: Begin exam date/time: CT HEAD WO CONTRAST, CT CERVICAL SPINE WO CONTRAST Date: August 23, 2017 Indication:fall from horse headache and neck pain Technique: Noncontrast CT of the brain was performed with axial images acquired from skull base to vertex. Comparison: None available. Findings: There are no acute intra or extra-axial fluid collections. Ventricles are of normal size, shape, and morphology. No mass effect or midline shift is present. The flores-white matter differentiation is normal. The visualized portions of the orbits, and paranasal sinuses, and mastoids are normal. No fractures are identified. Topogram demonstrates no lytic lesions or fractures. Procedure Note Interface, Rad Results In - 08/23/2017 7:27 PM CDT Patient: BERNIE SOLER Sex#: F # 1980 Reilly#: [id number] Location: [facility] ED ED 04-07 Procedure Requested: [id number] CT CERVICAL SPINE WO CONTRAST Reason for Exam: fall from horse pain Exam Ordered: 08/23/2017 1755 Exam Date/Time: 08/23/2017 1833 Begin exam date/time: 08/23/[address] HEAD WO CONTRAST, CT CERVICAL SPINE WO CONTRAST Date: August 23, 2017 Indication: fall from horse headache and neck pain Technique: Noncontrast CT of the brain was performed with axial images acquired from skull base to vertex. Comparison: None available. Findings: There are no acute intra or extra-axial fluid collections. Ventricles are of normal size, shape, and morphology. No mass effect or midline shift is present. The flores-white matter differentiation is normal. The visualized portions of the orbits, and paranasal sinuses, and mastoids are normal. No fractures are identified. Topogram demonstrates no lytic lesions or fractures. IMPRESSION 1. No CT evidence of intracranial hemorrhage, mass effect, or acute territorial infarct. 2. No evidence of acute calvarial fracture. CT CERVICAL SPINE WO CONTRAST Date: August 23, 2017 Indication: fall from horse headache and neck pain Technique: Multiple axial CT images of the cervical spine were obtained and examined without contrast. Sagittal and coronal reconstructions were performed at the workstation. Findings: The vertebral bodies maintain normal height and alignment. There is no evidence of acute fracture. Multilevel mild intervertebral disc space loss in the mid cervical spine. The facets are properly aligned. No odontoid fracture is seen. Prevertebral soft tissues and epiglottis are unremarkable. IMPRESSION: 1. No CT evidence of acute fracture or listhesis. 2. 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 One or more of the following dose reduction techniques were utilized: *Automated exposure control (AEC) *Adjustment of mA and/or kV according to patient size -Use of iterative reconstruction technique -CT scan done according to ALARA, or WHIT/IMAGE GENTLY Performing Organization Address City/State/Zipcode Phone Number [facility] documented in this encounter Visit Diagnoses Diagnosis Closed head injury, initial encounter - Primary documented in this encounter
--- OUTSIDE RECORDS SUMMARY | 2018-10-27 01:45 | XMS REPORT | Clinical Summary ---
Author Author [facility] Organization [facility] Address Unknown Phone Unavailable Care Team Providers Care Medical Cost Consultant Name Role Phone PCP Unavailable Allergies No Known Allergies Medications End Date Status Medication Sig Dispensed Refills Start Date Active albuterol (PROVENTIL HFA) Inhale 2 0 90 mcg/actuation HFA puffs every 6 inhaler (six) hours as needed for wheezing. Active Problems No known active problems Social History Date Tobacco Use Types Packs/Day Years Used Never Smoker Smokeless Tobacco: Never Used Drinks/Week oz/Week Comments Alcohol Use socially Yes Sex Assigned at Date Recorded Female 10/25/2018 7:45 AM CDT Industry Job Start Date Occupation Not on file Not on file Not on file Travel End Travel History Travel Start No recent travel history available. Last Filed Vital Signs Reading Time Taken Comments Vital Sign 147/82 09/23/2017 7:49 PM CDT Blood Pressure 87 09/23/2017 7:49 PM CDT Pulse 36.8 C (98.3 F) 09/23/2017 7:49 PM CDT Temperature 16 09/23/2017 5:50 PM CDT Respiratory Rate 100% 09/23/2017 7:49 PM CDT Oxygen Saturation - - Inhaled Oxygen Concentration 99.8 kg (220 lb) 09/02/2017 9:48 PM CDT Weight 172.7 cm (5' 8") 09/02/2017 9:48 PM CDT Height 33.45 09/02/2017 9:48 PM CDT Body Mass Index Plan of Treatment Health Maintenance Due Date Last Done Comments Td # 1980 Cervical Cancer Screening 2002 via Pap Smear Influenza Vaccine (#1) 2019 Pneumococcal Vaccine: Aged Out No longer eligible based Pediatrics (0 to 5 Years) on patient's age to and At-Risk Patients (6 complete this topic to 64 Years) Results Not on filefrom Last 3 Months Insurance Type Payer Benefit Subscriber ID Effective Phone Address Plan / Dates Group WORKERS COMPENSATION MISC WORK xxxxxxxxxxxx 2015- COMP Present Advance Directives Patient Manager French Explanation Type Date Recorded Health Care Directive
--- OUTSIDE RECORDS SUMMARY | 2018-10-27 01:45 | XMS REPORT | Encounter Summary ---
Author Author [facility] Organization [facility] Address Unknown Phone Unavailable Care Team Providers Care Stabilizing Machine Operator Name Role Phone PCP Unavailable Reason for Visit * Reason Comments Knee Pain Encounter Details Care Team Description Date Type Department Maddy Fritz MD [address] [place] [address] Contusion of right knee, initial encounter (Primary Dx) 09/09/2017 Emergency [facility] [address] [place] [address] Social History Date Tobacco Use Types Packs/Day [...] Signs Reading Time Taken Comments Vital Sign 131/71 09/09/2017 9:03 PM CDT Blood Pressure 92 09/09/2017 9:03 PM CDT Pulse 36.7 C (98.1 F) 09/09/2017 9:03 PM CDT Temperature 20 09/09/2017 9:03 PM CDT Respiratory Rate 99% 09/09/2017 9:03 PM CDT Oxygen Saturation - - Inhaled Oxygen Concentration - - Weight - - Height - - Body Mass Index documented in this encounter Discharge Instructions * Instructions* Maddy Fritz MD - 09/09/2017 You were seen in the emergency department today for knee pain. The x-ray did no t show a broken bone. Please rest, ice, elevate, take tylenol or ibuprofen for pain. Wear guillermo wrap for comfort. Follow up as needed with primary care if not improving in 1-2 weeks. You may need additional imaging such as MRI at that ananda e. You also mentioned breast pain & should have a mammogram. You can call [facility] breast clinic at [phone] for assistance. Typically you can walk in for this test. Very important to follow up as this could be a symptom of breast cancer. * Attachments The following attachments cannot be sent through Care Everywhere.* LOWER EXTREMITY CONTUSION (GERMAN) documented in this encounter Medications at Time of Discharge Start Date End Date Medication Sig Dispensed Refills albuterol (PROVENTIL HFA) Inhale 2 0 90 mcg/actuation HFA puffs every 6 inhaler (six) hours as needed for wheezing. documented as of this encounter ED Notes * Maddy Fritz MD - 09/09/2017 10:47 PM CDT 09/09/2017 [facility] History Chief Complaint Patient presents with Knee Pain The patient is a 37 year old female who presents with right knee injury. She st ates that just prior to arrival she was rearranging furniture & hit her knee against a dresser. She complains of pain with movement & ambulation. She denies other injuries. She states that she has chronic bilateral knee pain & has previously been told that she has "80 year old knees." She did not take me dication prior to arrival. She has visited [facility] times since 08/05/2017, including yesterday for minor head injury after she hit her head on the door at the movie theater. She states that she feels safe at home. She does not have a PCP. Past Medical History: Diagnosis Date Migraine Seizure (HCC) one time post . Past Surgical History: Procedure Laterality Date APPENDECTOMY SECTION DENTAL SURGERY No family history on file. Social History Substance Use Topics Smoking status: Never Smoker Smokeless tobacco: Never Used Alcohol use Yes Comment: socially Review of Systems Constitutional: Negative for chills and fever. HENT: Negative for congestion, rhinorrhea and sore throat. Eyes: Negative for discharge and redness. Respiratory: Negative for cough, chest tightness and shortness of breath. Cardiovascular: Negative for chest pain, palpitations and leg swelling. Gastrointestinal: Negative for abdominal pain, diarrhea, nausea and vomiting. Genitourinary: Negative for dysuria and hematuria. Musculoskeletal: Negative for back pain. Right knee pain Skin: Negative for rash. Neurological: Negative for dizziness, syncope, weakness and numbness. All other systems reviewed and are negative. Physical Exam BP 131/71 (BP Location: Right arm) | Pulse 92 | Temp 36.7 C (98.1 F) (Oral ) | Resp 20 | LMP 2017 | SpO2 99% Physical Exam Constitutional: She is oriented to person, place, and time. She appears well-dev eloped and well-nourished. No distress. HENT: Head: Normocephalic and atraumatic. Nose: Nose normal. Mouth/Throat: Oropharynx is clear and moist. Eyes: Conjunctivae are normal. Neck: Normal range of motion. Neck supple. Cardiovascular: Normal rate, regular rhythm and normal heart sounds. No murmur heard. Pulmonary/Chest: Effort normal and breath sounds normal. No stridor. No respirat ory distress. She has no wheezes. Abdominal: Soft. She exhibits no distension and no mass. There is no tenderness. There is no rebound and no guarding. Musculoskeletal: She exhibits tenderness. She exhibits no edema or deformity. Right knee no swelling or deformity, tenderness to medial joint line, mild tende rness over patella, no lateral tenderness. No hip or ankle tenderness. Able to straight leg raise. Limited ROM with active flexion but able to fully flex. N egative anterior/posterior drawer, stable to valgus/varus stress, DP/PT 2+, sens ation intact to foot, normal motor strength. Neurological: She is alert and oriented to person, place, and time. Skin: Skin is warm and dry. No rash noted. No erythema. Psychiatric: She has a normal mood and affect. Her behavior is normal. Nursing note and vitals reviewed. ED Course Procedures MDM Number of Diagnoses or Management Options Contusion of right knee, initial encounter: Diagnosis management comments: Xr Knee 3 Views Right Result Date: 09/09/2017 Impression: 3 views of the right knee are negative for acute fracture. No joint effusion is appreciated. Possible tiny osteochondroma along the medial tibial plateau, an incidental finding. No retained radiopaque foreign material is seen. The patient presents with knee injury. She has frequent ED visits but denies do mestic violence. Gave ibuprofen & obtained x-ray. No evidence of acute bony injury, incidental finding of osteochondroma which I discussed with the patient. GUILLERMO wrap applied by RN. Recommend rest, ice, elevation, compression, tylenol/ibuprofen for pain. Follow up as needed with primary care if not improving in 1-2 weeks. She mentioned at the end of the visit that she has had right breast pain for several weeks & I encouraged her to walk in for mammogram to evaluate for breast cancer, provided phone number for [facility] breast clinic. Come back for neurovascular compromise or otherwise worsening condition. ED Clinical Impression 1. Contusion of right knee, initial encounter Patient ED Dispo ED Disposition Discharge Maddy Fritz MD 09/09/17 [id number] * Sloane Medel RN - 09/09/2017 9:06 PM CDT Pt c/o right knee pain after bumping it on dresser. documented in this encounter Plan of Treatment Not on filedocumented as of this encounter Procedures Comments Procedure Name Priority Date/Time Associated Diagnosis XR KNEE 3 VIEWS RIGHT STAT 09/09/2017 9:22 PM CDT documented in this encounter Results * XR Knee 3 views right (09/09/2017 9:22 PM CDT) Specimen Impressions Performed At 3 views of the right knee are negative for acute fracture. No joint MCKESSON effusion is appreciated. Possible tiny osteochondroma along the medial tibial plateau, an incidental finding.No retained radiopaque foreign material is seen. Narrative Performed At Patient: JIGNESH GIVENS Sex#:F # [id number] Reilly#:[id number] Location:[facility] ED ED 04-07Accession#: [id number] Procedure Requested:[id number] XR KNEE 3 VIEWS RIGHT Reason for Exam:medial knee pain after hitting on dresser Exam Ordered: Exam Date/Time: Begin exam date/time: EXAMINATION: XR KNEE 3 VIEWS RIGHT CLINICAL INFORMATION: medial knee pain after hitting on dresser COMPARISON: None Procedure Note Interface, Rad Results In - 09/09/2017 9:58 PM CDT Patient: BERNIE GIVENS Sex#: F # [id number] Reilly#: [id number] Location: [facility] ED ED 04-07 Procedure Requested: [id number] XR KNEE 3 VIEWS RIGHT Reason for Exam: medial knee pain after hitting on dresser Exam Ordered: 09/09/20172109 Exam Date/Time: 09/09/20172121 Begin exam date/time: 09/09/20172117 EXAMINATION: XR KNEE 3 VIEWS RIGHT CLINICAL INFORMATION: medial knee pain after hitting on dresser COMPARISON: None IMPRESSION 3 views of the right knee are negative for acute fracture. No joint effusion is appreciated. Possible tiny osteochondroma along the medial tibial plateau, an incidental finding. No retained radiopaque foreign material is seen. Performing Organization Address City/State/Zipcode Phone Number MCKESSON documented in this encounter Visit Diagnoses Diagnosis Contusion of right knee, initial encounter - Primary documented in this encounter Administered Medications Action Date Dose Rate Site Medication Order MAR Action 09/09/2017 9:11 PM CDT 600 mg ibuprofen (ADVIL,MOTRIN) tablet 600 mg Given 600 mg, Oral, Once, 09/09/17 at 2130, For 1 dose documented in this encounter
--- OUTSIDE RECORDS SUMMARY | 2018-10-27 01:45 | XMS REPORT | Encounter Summary ---
Author Author [facility] Organization [facility] Address Unknown Phone Unavailable Care Team Providers Care Rope Laying Machine Operator Name Role Phone PCP Unavailable Reason for Visit * Reason Comments Headache walked into door at movies at approx 0030. Encounter Details Care Team Description Date [place] [address] [place] [address] Closed head injury, initial encounter (Primary Dx) 09/08/2017 Emergency [facility] [address] [place] [address] Social History Date Tobacco Use Types Packs/Day [...] Signs Reading Time Taken Comments Vital Sign 158/92 09/08/2017 12:45 AM CDT Blood Pressure 105 09/08/2017 12:45 AM CDT Pulse 36.3 C (97.4 F) 09/08/2017 12:45 AM CDT Temperature 18 09/08/2017 12:45 AM CDT Respiratory Rate 99% 09/08/2017 12:45 AM CDT Oxygen Saturation - - Inhaled Oxygen Concentration - - Weight - - Height - - Body Mass Index documented in this encounter Discharge Instructions * Attachments The following attachments cannot be sent through Care Everywhere.* Concussion, Discharge Instructions for ([place]) documented in this encounter Medications at Time of Discharge Start Date End Date Medication Sig Dispensed Refills albuterol (PROVENTIL HFA) Inhale 2 0 90 mcg/actuation HFA puffs every 6 inhaler (six) hours as needed for wheezing. documented as of this encounter ED Notes * Mc Clay DO - 09/08/2017 12:58 AM CDT 09/08/2017 [facility] History Chief Complaint Patient presents with Headache walked into door at movies at approx 0030. Patient just came out of theater after seeing [place] and walked into the doo r as it was being closed by another person. She says R forehead hit the door [address]. No LOC, n,v, vomiting, vision changes, unilateral weakness/numbness, tingli ng. She says she is here because it hurts too much and needs pain control. The history is provided by the patient. Headache Pain location: Frontal Quality: Sharp Radiates to: Does not radiate Associated symptoms: no dizziness, no eye pain, no nausea, no photophobia and no vomiting Past Medical History: Diagnosis Date Migraine Seizure (HCC) one time post . Past Surgical History: Procedure Laterality Date APPENDECTOMY SECTION DENTAL SURGERY No family history on file. Social History Substance Use Topics Smoking status: Never Smoker Smokeless tobacco: Never Used Alcohol use Yes Comment: socially Review of Systems Eyes: Negative for photophobia and pain. Respiratory: Negative for shortness of breath. Gastrointestinal: Negative for nausea and vomiting. Skin: Negative for wound. Neurological: Positive for headaches. Negative for dizziness, syncope and light- headedness. Physical Exam BP (!) 158/92 (BP Location: Right arm) | Pulse (!) 105 | Temp 36.3 C (97.4 F) (Oral) | Resp 18 | LMP 2017 | SpO2 99% Physical Exam Constitutional: She is oriented to person, place, and time. She appears well-dev eloped and well-nourished. HENT: Head: Normocephalic and atraumatic. Eyes: EOM are normal. Pupils are equal, round, and reactive to light. Neck: Normal range of motion. Neck supple. Cardiovascular: Normal rate and regular rhythm. Pulmonary/Chest: Effort normal. Neurological: She is alert and oriented to person, place, and time. Skin: Skin is warm and dry. ED Course Procedures MDM Number of Diagnoses or Management Options Closed head injury, initial encounter: Diagnosis management comments: No need for imaging based off exam as there is no ruba on her head at all. No abrasion or contusion. Normal neuro exam. Canadi an head CT rules negative. She says tylenol will not help her headaches. Will give phenergan, benadryl IM. Will DC in stable condition. Told to return for c oncerning symptoms. ED Clinical Impression 1. Closed head injury, initial encounter Patient ED Dispo ED Disposition Discharge Mc Clay DO 09/08/17 0103 documented in this encounter Plan of Treatment Not on filedocumented as of this encounter Visit Diagnoses Diagnosis Closed head injury, initial encounter - Primary documented in this encounter Administered Medications Action Date Dose Rate Site Medication Order MAR Action 09/08/2017 1:01 AM CDT 50 mg Right Upper Outer Quadrant diphenhydrAMINE (BENADRYL) injection 50 Given mg 50 mg, Intramuscular, Once, 09/08/17 at 0115, For 1 dose 09/08/2017 1:00 AM CDT 25 mg Right Upper Outer Quadrant promethazine (PHENERGAN) injection 25 mg Given 25 mg, Intramuscular, Once, Fri09/08/17 at 0115, For 1 dose documented in this encounter"
--- OUTSIDE RECORDS SUMMARY | 2018-10-27 01:45 | XMS REPORT | Encounter Summary ---
Author Author [facility] Organization [facility] Address Unknown Phone Unavailable Care Team Providers Care Promotion Manager Name Role Phone PCP Unavailable Reason for Visit * Reason Comments Headache r sided head pain. a bed fell down on top of her head. Encounter Details Care Team Description Date Type [place] [address] [place] [address] Contusion of scalp, initial encounter (Primary Dx); Cervical strain, acute 08/17/2017 Emergency [facility] [address] [place] [id number] Social History Date Tobacco Use Types Packs/Day [...] Signs Reading Time Taken Comments Vital Sign 138/88 08/17/2017 10:10 PM CDT Blood Pressure 80 08/17/2017 10:10 PM CDT Pulse 36.8 C (98.2 F) 08/17/2017 8:51 PM CDT Temperature 20 08/17/2017 10:10 PM CDT Respiratory Rate 99% 08/17/2017 10:10 PM CDT Oxygen Saturation - - Inhaled Oxygen Concentration - - Weight - - Height - - Body Mass Index documented in this encounter Discharge Instructions * Instructions* Abdias Steiner DO - 08/17/2017 Tylenol or motrinfor pain as needed. Rest x 24 hours. Follow up with personal physician as needed. documented in this encounter ED Notes * Abdias Steiner DO - 08/17/2017 9:33 PM CDT 08/17/2017 [facility] History Chief Complaint Patient presents with Headache r sided head pain. a bed fell down on top of her head. This 36-year-old female toward the emergency department with a friend fide schrader of an injury to the right side of her head earlier today. A flip of bed came down and hit her on the head but no loss consciousness. She has some mild to mo derate headache. Also mild neck pain but no paresthesias or weakness of extremi ties. Patient was seen recently [facility] with a injury 2 erik hs ago and has had several visits to other hospitals recently. Patient mildly a nxious but alert and oriented. Mild nausea but no emesis. No chest Pain cough o r dyspnea. No abdominal pain. Patient is not . Migraine headache hist ory. No Extremity or abdominal pain. Past Medical History: Diagnosis Date Migraine Seizure [...] Gastrointestinal: Negative. Endocrine: Negative. Genitourinary: Negative. Musculoskeletal: Negative. Skin: Negative. Allergic/Immunologic: Negative. Neurological: Positive for headaches. Hematological: Negative. Psychiatric/Behavioral: Negative. All other systems reviewed and are negative. Physical Exam BP (!) 135/96 (BP Location: Right arm) | Pulse 99 | Temp 36.8 C (98.2 F) ( Oral) | Resp 18 | LMP 08/01/2017 | SpO2 96% Physical Exam Constitutional: She is oriented to person, place, and time. She appears well-dev eloped and well-nourished. HENT: Head: Normocephalic. Right Ear: External ear normal. Left Ear: External ear normal. Nose: Nose normal. Mouth/Throat: Oropharynx is clear and moist. A johnston sign bilaterally. Tenderness right parietal/scalp area but no erythema or swelling and no deformity palpated. Eyes: Pupils are equal, round, and reactive to light. Neck: Normal range of motion. Generalized tenderness C2-C6 paravertebral muscles, but normal range of motion a nd no erythema or swelling or deformity palpated. Cardiovascular: Normal rate. Pulmonary/Chest: Effort normal and breath sounds normal. Abdominal: Soft. Bowel sounds are normal. Musculoskeletal: Normal range of motion. Neurological: She is alert and oriented to person, place, and time. Skin: Skin is warm. Capillary refill takes less than 2 seconds. Psychiatric: She has a normal mood and affect. Her behavior is normal. Judgment and thought content normal. Nursing note and vitals reviewed. ED Course Procedures MDM Number of Diagnoses or Management Options Amount and/or Complexity of Data Reviewed Tests in the radiology section of CPT: ordered and reviewed Risk of Complications, Morbidity, and/or Mortality Presenting problems: low Diagnostic procedures: low Management options: low Patient Progress Patient progress: stable ED Clinical Impression 1. Contusion of scalp, initial encounter 2. Cervical strain, acute Patient ED Dispo ED Disposition Discharge Abdias Steiner DO 08/17/172200 * Lynette Singh RN - 08/17/2017 8:57 PM CDT Pt alert and oriented x 3. Pms intact to all extremities. Pt states her head w as bleeding at the time of the accident which was at noon today. No blood noted . No abrasions or lacerations noted. documented in this encounter Plan of Treatment Not on filedocumented as of this encounter Procedures Comments Procedure Name Priority Date/Time Associated Diagnosis XR CERVICAL SPINE 3 VIEWS STAT 08/17/2017 OR LESS 10:[address] HEAD WO CONTRAST STAT 08/17/2017 9:32 PM CDT documented in this encounter Results * XR Cervical Spine 2 or 3 views (08/17/2017 10:04 PM CDT) Specimen Impressions Performed At Negative cervical spine. JOSE Narrative Performed At Patient: JIGNESH SOLER Sex#:F # [id number] Reilly#:[id number] Location:[facility] ED ED 08-05Accession#: [id number] Procedure Requested:[id number] XR CERVICAL SPINE 2 OR 3 VIEWS Reason for Exam:injury Exam Ordered: Exam Date/Time: Begin exam date/time: Reading Site: [facility]. XR CERVICAL SPINE 2 OR 3 VIEWS, 08/17/2017 10:04 PM Reason for Examination: injury neck Findings:Alignment is within normal limits in the cervical spine. No fracture or dislocation is identified. Disc spaces are within normal limits. Posterior elements are unremarkable. There is no prevertebral soft tissue swelling. Procedure Note Interface, Rad Results In - 08/17/2017 10:13 PM CDT Patient: BERNIE SOLER Sex#: Earnestine # 1980 Reilly#: [id number] Location: [facility] ED ED 08-05 Procedure Requested: [id number] XR CERVICAL SPINE 2 OR 3 VIEWS Reason for Exam: injury Exam Ordered: 08/17/20172101 Exam Date/Time: 08/17/20172203 Begin exam date/time: 08/17/20172118 Reading Site: [facility]. XR CERVICAL SPINE 2 OR 3 VIEWS, 08/17/2017 10:04 PM Reason for Examination: injury neck Findings: Alignment is within normal limits in the cervical spine. No fracture or dislocation is identified. Disc spaces are within normal limits. Posterior elements are unremarkable. There is no prevertebral soft tissue swelling. IMPRESSION Negative cervical spine. Performing Organization Address City/State/Zipcode Phone Number JOSE * CT Head wo contrast (08/17/2017 9:32 PM CDT) Specimen Impressions Performed At Negative noncontrast CT scan of the brain. JOSE Narrative Performed At Patient: JIGNESH SOLER Sex#:F # [id number] Reilly#:[id number] Location:[facility] ED ED 08-05Accession#: [id number] Procedure Requested:[id number] CT HEAD WO CONTRAST Reason for Exam:head injury Exam Ordered: Exam Date/Time: Begin exam date/time: PROCEDURE:Noncontrast CT scan of the brain 08/17/2017 9:32 PM Post-processing is performed, and images are reformatted in multiple planes. Dose reduction techniques are used. REASON FOR PROCEDURE:head injury with pain FINDINGS:No masses or focal abnormalities are identified in the brain. There is no evidence of mass effect or intracranial hemorrhage. There is no definite CT evidence of acute infarct. There is normal flores-white matter differentiation.The ventricles are normal in size.There are no abnormal extra-axial fluid collections or masses.A cranial fracture is not identified. The visualized upper paranasal sinuses and mastoid air cells are within normal limits. Procedure Note Interface, Rad Results In - 08/17/2017 9:41 PM CDT Patient: BERNIE SOLER Sex#: F # 1980 Reilly#: [id number] Location: [facility] ED ED 08-05 Procedure Requested: [id number] CT HEAD WO CONTRAST Reason for Exam: head injury Exam Ordered: 08/17/20172101 Exam Date/Time: 08/17/20172131 Begin exam date/time: 08/17/20172118 PROCEDURE: Noncontrast CT scan of the brain 08/17/2017 9:32 PM Post-processing is performed, and images are reformatted in multiple planes. Dose reduction techniques are used. REASON FOR PROCEDURE: head injury with pain FINDINGS: No masses or focal abnormalities are identified in the brain. There is no evidence of mass effect or intracranial hemorrhage. There is no definite CT evidence of acute infarct. There is normal flores-white matter differentiation. The ventricles are normal in size. There are no abnormal extra-axial fluid collections or masses. A cranial fracture is not identified. The visualized upper paranasal sinuses and mastoid air cells are within normal limits. IMPRESSION Negative noncontrast CT scan of the brain. Performing Organization Address City/State/Zipcode Phone Number MCKESSON documented in this encounter Visit Diagnoses Diagnosis Contusion of scalp, initial encounter - Primary Cervical strain, acute documented in this encounter Administered Medications Action Date Dose Rate Site Medication Order MAR Action 08/17/2017 9:30 PM CDT 50 mg diphenhydrAMINE (BENADRYL) capsule 50 mg Given 50 mg, Oral, Once, 08/17/17 at 2130, For 1 dose 08/17/2017 9:30 PM CDT 60 mg Right Upper Outer Quadrant ketorolac (TORADOL) injection 60 mg Given 60 mg, Intramuscular, Once, 08/17/17 at 2130, For 1 dose 08/17/2017 9:30 PM CDT 4 mg ondansetron (ZOFRAN-ODT) disintegrating Given tablet 4 mg 4 mg, Oral, Once, 08/17/17 at 2130, For 1 dose, Do not remove from blister until needed. Peel backing off the blister, do not push tablet through. Using dry hands, place tablet on tongue and allow to dissolve. Swallow with saliva., documented in this encounter"
--- OUTSIDE RECORDS SUMMARY | 2018-10-27 01:45 | XMS REPORT | Encounter Summary ---
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 Role Phone PCP Unavailable Reason for Visit * Reason Comments Shoulder Injury Encounter Details Care Team Description Date [place] [address] [place] [address] [place] [address] [place] [address] Syncope, unspecified syncope type (Primary Dx) 09/23/2017 Emergency [facility] [address] [place] [address] Social History Date Tobacco Use Types Packs/Day [...] attachments cannot be sent through Care Everywhere.* SYNCOPE, UNK CAUSE (BENGALI) documented in this encounter Medications at Time of Discharge Start Date End Date Medication Sig Dispensed Refills albuterol (PROVENTIL HFA) Inhale 2 0 90 mcg/actuation HFA puffs every 6 inhaler (six) hours as needed for wheezing. documented as of this encounter ED Notes * Tiffanie Goldman RN - 09/23/2017 7:50 PM CDT Patient refusing to provide urine sample at this time. Dr Hayes at bedside to discuss testing indications and patient still refusing. Patient is AAO4, breathi ng is non-labored/spontaneous/equal, pulses intact bilaterally, and gait is stea dy. Patient educated on the implications of leaving against medical advice; verb alized understanding. * Yasir Hayes, - 09/23/2017 7:20 PM CDT Associated Order(s): ED PROCEDURE BASIC - ECG INTERPRET 09/23/2017 [facility] History Chief Complaint Patient presents with Shoulder Injury Patient is a 37-year-old female who presents for evaluation after syncopal episo de. Pt has been complaining of recently dizziness as well. Care assumed from Yovani Milan at shift change. See his note for remainder of HPI history. Past Medical History: Diagnosis Date Migraine Seizure (HCC) one time post . Past Surgical History: Procedure Laterality Date APPENDECTOMY SECTION DENTAL SURGERY History reviewed. No pertinent family history. Social History Substance Use Topics Smoking status: Never Smoker Smokeless tobacco: Never Used Alcohol use Yes Comment: socially Review of Systems Constitutional: Negative. HENT: Negative. Respiratory: Negative. Cardiovascular: Negative. Gastrointestinal: Negative. Genitourinary: Likely starting menstrual cycle Skin: Negative. Psychiatric/Behavioral: Anxiety All other systems reviewed and are negative. Physical Exam BP (!) 127/91 (BP Location: Right arm) | Pulse 71 | Temp 36.6 C (97.8 F) ( Oral) | Resp 16 | LMP 2017 | SpO2 100% Physical Exam Constitutional: She is oriented to person, place, and time. Eyes: Conjunctivae are normal. Cardiovascular: Normal rate, regular rhythm and normal heart sounds. Pulmonary/Chest: Effort normal. No respiratory distress. Neurological: She is alert and oriented to person, place, and time. Skin: Skin is warm and dry. Psychiatric: Highly anxious, aggitated, pt only seen with nursing chaparone present in room Nursing note and vitals reviewed. ED Course ECG Interpret Date/Time: 09/23/2017 6:30 PM Performed by: YASIR HAYES Authorized by: YASIR HAYES ECG reviewed by ED Physician in the absence of a yard jacker: yes Interpretation: Interpretation: normal Rate: ECG rate assessment: normal Rhythm: Rhythm: sinus rhythm Ectopy: Ectopy: none QRS: QRS axis: Normal Conduction: Conduction: normal ST segments: ST segments: Normal T waves: T waves: normal Comments: Not STEMI MDM Number of Diagnoses or Management Options Syncope, unspecified syncope type: Diagnosis management comments: 1929 Pt refused to give a urine sample. I stated that we needed the sample to find out if she might be and to check a u rinalysis. She states that she is not and had a tubal ligation. She s tates she has been seen at multiple [facility] and had a recent negative test. I calmly explained to her that does not entirely exclude a but she reyes s not wish to change her mind. Pt has chosen to sign out AGAINST MEDICAL ADVICE . States that she will just go to another hospital to seek medical care. She i s very upset and feels she did not get good care here. I took over her care at shift change at [address] Milan. I only talked to the patient with a chap erone present. She states she was accused of being a "drug seeker". Patient le ft the hospital and clearly demonstrated a steady gait with no focal deficits or lateralizing signs. Patient was lucid and able answer all basic questions with out difficulty. Results of lab work obtained were unremarkable. Amount and/or Complexity of Data Reviewed Clinical lab tests: ordered and reviewed Tests in the radiology section of CPT: ordered and reviewed Risk of Complications, Morbidity, and/or Mortality Presenting problems: low Diagnostic procedures: low Management options: low Patient Progress Patient progress: stable Results for orders placed or performed during the hospital encounter of 09/23/17 Troponin - [facility] Result Value Ref Range Troponin <0.05 0.00 - 0.05 ng/mL CBC and Diff - [facility] Result Value Ref Range WBC 6.40 4.00 - 11.00 TH/uL RBC 4.97 4.00 - 5.00 MIL/uL Hemoglobin 11.5 (L) 12.0 - 15.0 g/dL Hematocrit 37 36 - 45 % MCV 74 (L) 80 - 99 fL MCH 23 (L) 27 - 34 pg MCHC 31 (L) 32 - 36 % Platelet Count 306 140 - 400 TH/uL %Lymphocytes 27 15 - 47 % %Monocytes 4 0 - 12 % % Neutrophils 69 45 - 78 % # Lymphocytes 1.70 1.00 - 3.30 TH/uL # Monocytes 0.30 0.20 - 0.90 TH/uL # Granulocytes 4.40 1.70 - 6.80 TH/uL RDW 14.0 9.0 - 14.5 % MPV 9.7 9.4 - 12.3 fL Comprehensive Metabolic Panel - CH Result Value Ref Range Sodium 142 136 - 145 mmol/L Potassium 4.3 3.5 - 5.5 mmol/L Chloride 102 98 - 110 mmol/L Carbon Dioxide 26 20 - 29 mmol/L Anion Gap 14 5 - 17 Calcium 9.0 8.4 - 10.5 mg/dL Glucose 82 65 - 99 mg/dL Protein Total Serum 7.3 6.0 - 8.3 g/dL Albumin 3.4 (L) 3.5 - 5.0 g/dL Alkaline Phosphatase 47 38 - 126 u/L Alanine Aminotransferase 17 9 - 52 u/L Aspartate Aminotransferase 30 14 - 36 u/L Bilirubin Total 0.3 0.1 - 1.2 mg/dL Blood Urea Nitrogen 6 (L) 10 - 20 mg/dL Creatinine 0.9 0.7 - 1.2 mg/dL GFR Female AA 85 60 - 200 GFR Female Non-AA 71 60 - 200 ED Clinical Impression 1. Syncope, unspecified syncope type Patient ED Dispo ED Disposition KENNEDY Hayes DO 09/23/17 194 * Aiden Milan MD - 09/23/2017 6:00 PM CDT 09/23/2017 [facility] History Chief Complaint Patient presents with Shoulder Injury Patient is a pleasant 37-year-old female who is a G 16 [id number] resents today with a near syncopal event while at home. Patient says that when she is on her menst rual. She suffered from menorrhagia and she comes very lightheaded and dizzy wh en she stands or goes from a supine to standing position. Today she is lying do wn in bed got up to walk to the kitchen felt very lightheaded dizzy caught herse lf on the kitchen table as soon as she is ago she slid down striking the right s hank of her lateral shoulder into the kitchen table. She denies losing conscious ness, denies hitting her head and neck her main complaint is right shoulder pain without weakness. There is some mild tingling she has the lateral aspect of the shoulder. Patient denies any other neck pain, chest pain, abdominal pain. Kofi oliver has been seen on 9 separate occasions in the last 8 weeks just within the [facility] system I am concerned with his pattern of injury and fall there may b e some medication induced syncope or clear neurologic problem causing her falls. The history is provided by the patient. Shoulder Injury Location: Shoulder Shoulder location: R shoulder Injury: yes Mechanism of injury: fall Fall: Fall occurred: Standing and walking Associated symptoms: back pain Associated symptoms: no neck pain Past Medical History: Diagnosis Date Migraine Seizure (HCC) one time post . Past Surgical History: Procedure Laterality Date APPENDECTOMY SECTION DENTAL SURGERY History reviewed. No pertinent family history. Social History Substance Use Topics Smoking status: Never Smoker Smokeless tobacco: Never Used Alcohol use Yes Comment: socially Review of Systems Constitutional: Negative. HENT: Negative. Eyes: Negative. Respiratory: Negative. Cardiovascular: Negative. Gastrointestinal: Positive for abdominal pain. Endocrine: Negative. Genitourinary: Positive for menstrual problem. Musculoskeletal: Positive for arthralgias, back pain and myalgias. Negative for neck pain and neck stiffness. Allergic/Immunologic: Negative. Neurological: Positive for dizziness, syncope and light-headedness. Hematological: Negative. Psychiatric/Behavioral: Negative. All other systems reviewed and are negative. Physical Exam BP (!) 127/91 (BP Location: Right arm) | Pulse 71 | Temp 36.6 C (97.8 F) ( Oral) | Resp 16 | LMP 2017 | SpO2 100% Physical Exam Constitutional: She is oriented to person, place, and time. She appears well-dev eloped and well-nourished. HENT: Head: Normocephalic and atraumatic. Neck: Normal range of motion. Neck supple. Cardiovascular: Normal rate, regular rhythm, normal heart sounds and intact dist al pulses. Pulmonary/Chest: Effort normal and breath sounds normal. Abdominal: Soft. Bowel sounds are normal. There is no tenderness. Musculoskeletal: Right shoulder: She exhibits decreased range of motion, tenderness and pain . She exhibits no swelling, no effusion, no crepitus, no deformity, no laceratio n, no spasm, normal pulse and normal strength. Neurological: She is oriented to person, place, and time. No cranial nerve defic it or sensory deficit. She exhibits normal muscle tone. GCS eye subscore is 4. G CS verbal subscore is 5. GCS motor subscore is 6. Skin: Skin is warm and dry. Capillary refill takes less than 2 seconds. Nursing note and vitals reviewed. ED Course Procedures MDM Number of Diagnoses or Management Options Diagnosis management comments: Is a pleasant 37-year-old female with a near sync opal event at home in a fall and injury to her older. Right shoulder. On exam there is no obvious signs of trauma she has full range of motion with no locking or popping. I do not believe x-rays are necessary at this time my biggest conc gladys was her near syncope with her menorrhagia. Patient admits she is had this i ssue for quite a while and she has been seen in our facilities 9 times in the 8 weeks. When confronted with this issue and the possibility that she has be en having medications that might be contributing to her symptoms she became some what agitated with me. She did apologize and said that she was just frustrated with the situation. My concern and the reason I brought it up was because sever al his medication may cause PATIENT CARRIER and respiratory depression which may be contribu ting to her syncope not improving it. We will complete our near-syncope evaluat ion. syncope My syncope differential includes but not limited to: Neurally mediated vasovagal syncope, situational syncope, cardiac sinus syncope, orthostatic hypertension, medications, psychiatric interventions, neurologic sy ncope, cardiogenic syncopal B, to include organic heart disease congestive heart failure, cardiac dysrhythmia, seizure disorder, stroke or transient ischemic at tack, bradycardia dysrhythmias, tachycardia dysrhythmias, PT, V. fib V. fib, car diac abnormalities like first degree secondary third-degree AV blocks, prolonged QT, hypertrophic Seferino myopathy, severe pulmonic stenosis, pulmonary arterial hypertension, atrial myxomas, aortic stenosis, valvular failure, alcohol consump tion, adrenal insufficiency, drug effects from things like antidepressants, anti hypertensive agents like beta blockers, vasodilators including calcium channel b lockers and nitrates, autonomic insufficiency. Patient's lab work is not returned her EKG is returned and is normal in appearan ce to me. I will turn over care to her to the oncoming physician Dr. Yasir Wesley er will disposition the patient once the laboratory work is returned. Amount and/or Complexity of Data Reviewed Clinical lab tests: reviewed and ordered Risk of Complications, Morbidity, and/or Mortality Presenting problems: moderate Diagnostic procedures: low Management options: low Patient Progress Patient progress: improved ED Clinical Impression No diagnosis found. Patient ED Dispo None Aiden Milan MD 09/23/17 191 documented in this encounter Plan of Treatment Not on filedocumented as of this encounter Procedures Comments Procedure Name Priority Date/Time Associated Diagnosis ECG STAT 09/24/2017 5:49 AM CDT ED PROCEDURE BASIC - ECG Routine 09/23/2017 INTERPRET 7:20 PM CDT TROPONIN STAT 09/23/2017 6:35 PM CDT COMPREHENSIVE METABOLIC STAT 09/23/2017 PANEL 6:35 PM CDT CBC AND DIFF (MANUAL DIFF STAT 09/23/2017 IF NECESSARY) 6:35 PM CDT documented in this encounter Results * Electrocardiogram (ECG) (09/24/2017 5:49 AM CDT) Narrative Performed At Performing Organization Address City/State/Zipcode Phone Number [facility] * ED Procedure Basic - ECG Interpret (09/23/2017 7:20 PM CDT) Narrative Performed At Yasir Hayes DO 09/23/20177:49 PM ECG Interpret Date/Time: 09/23/2017 6:30 PM Performed by: YASIR HAYES Authorized by: YASIR HAYES ECG reviewed by ED Physician in the absence of a yard jacker: yes Interpretation: Interpretation: normal Rate: ECG rate assessment: normal Rhythm: Rhythm: sinus rhythm Ectopy: Ectopy: none QRS: QRS axis:Normal Conduction: Conduction: normal ST segments: ST segments:Normal T waves: T waves: normal Comments: Not STEMI * Comprehensive Metabolic Panel - (09/23/2017 6:35 PM CDT) Sodium 142 136 - 145 mmol/L [facility] Potassium 4.3 3.5 - 5.5 mmol/L [facility] Chloride 102 98 - 110 mmol/L [facility] Carbon Dioxide 26 20 - 29 mmol/L [facility] Anion Gap 14 5 - 17 [facility] Calcium 9.0 8.4 - 10.5 mg/dL [facility] Glucose 82 65 - 99 mg/dL [facility] Protein Total 7.3 6.0 - 8.3 g/dL [facility] Serum [facility] [place] [place] [facility] Albumin 3.4 (L) 3.5 - 5.0 g/dL [facility] Alkaline 47 38 - 126 u/L [facility] Alanine 17 9 - 52 u/L [facility] Aspartate 30 14 - 36 u/L [facility] Bilirubin Total 0.3 0.1 - 1.2 mg/dL [facility] Blood Urea 6 (L) 10 - 20 mg/dL [facility] Nitrogen [facility] [place] [place] [facility] Creatinine 0.9 0.7 - 1.2 mg/dL [facility] eGFR Female AA 85 60 - 200 [facility] Comment: COMMUNITY Chronic Kidney Disease less [facility]ITAL [facility] - than 60 mL/min/1.73 sq.m [facility] Kidney failure less than [place] 15 mL/min/1.73 sq.m eGFR Female 71 60 - 200 [facility] Non-AA Comment: COMMUNITY Chronic Kidney Disease less [facility]ITAL [facility] - than 60 mL/min/1.73 sq.m [facility] Kidney failure less than [place] 15 mL/min/1.73 sq.m Specimen Blood Performing Organization Address City/[facility]/Zipcode Phone Number [facility] [address] * CBC and Diff - [facility] (09/23/2017 6:35 PM CDT) WBC 6.40 4.00 - 11.00 TH/uL [facility] RBC 4.97 4.00 - 5.00 MIL/uL [facility] Hemoglobin 11.5 (L) 12.0 - 15.0 g/dL [facility] Hematocrit 37 36 - 45 % [facility] MCV 74 (L) 80 - 99 fL [facility] MCH 23 (L) 27 - 34 pg [facility] MCHC 31 (L) 32 - 36 % [facility] Platelet Count 306 140 - 400 TH/uL [facility] %Lymphocytes 27 15 - 47 % [facility] %Monocytes 4Comment: The %Monos may 0 - 12 % [facility] include Monocytes, COMMUNITY Eosinophils, Basophils, Blasts [facility] - and other immature white [facility] cells. [place] % Neutrophils 69 45 - 78 % [facility] # Lymphocytes 1.70 1.00 - 3.30 TH/uL [facility] # Monocytes 0.30 0.20 - 0.90 TH/uL [facility] # Granulocytes 4.40 1.70 - 6.80 TH/uL [facility] RDW 14.0 9.0 - 14.5 % [facility] MPV 9.7 9.4 - 12.3 fL [facility] Specimen Blood Performing Organization Address City/State/Zipcode Phone Number [facility] [address] [place] [address], [place] [address] [facility] * Troponin - [facility] (09/23/2017 6:35 PM CDT) Troponin <0.05 0.00 - 0.05 ng/mL [facility] Specimen Blood Performing Organization Address City/State/Zipcode Phone Number [facility] [address] [place] [address], [place] [address] [facility] documented in this encounter Visit Diagnoses Diagnosis Syncope, unspecified syncope type - Primary documented in this encounter Administered Medications Action Date Dose Rate Site Medication Order MAR Action ketorolac (TORADOL) injection 30 mg 30 mg, Intravenous, Every 6 hours PRN, severe pain (pain score 7-10), Starting Fri09/23/17 at 1759, For 5 days 09/23/2017 6:15 PM CDT 1 mg LORazepam (ATIVAN) injection 1 mg Given 1 mg, Intravenous, Once, Fri09/23/17 at 1815, For 1 dose, Maximum IV push rate of 2 mg/min; max IVP dose is 4 mg., 09/23/2017 6:15 PM CDT 1,000 mL 1000 mL/hr sodium chloride 0.9% (NS) IV Bolus New Bag 1,000 mL, Intravenous, Administer over 60 Minutes, Once, Fri09/23/17 at 1815, For 1 dose documented in this encounter
--- OUTSIDE RECORDS SUMMARY | 2018-10-27 01:45 | XMS REPORT | Encounter Summary ---
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 Role Phone PCP Unavailable Reason for Visit * Reason Comments Hand Injury Pt states she shut her right hand in car door tonight Encounter Details Care Team Description [place] [address] [place] [address] Contusion of right wrist, initial encounter (Primary Dx) 09/02/2017 Emergency [facility] [address] [place] [address] Social History Date Tobacco Use Types Packs/Day [...] Signs Reading Time Taken Comments Vital Sign 124/76 09/02/2017 9:48 PM CDT Blood Pressure 101 09/02/2017 9:48 PM CDT Pulse 37.1 C (98.7 F) 09/02/2017 9:48 PM CDT Temperature 16 09/02/2017 9:48 PM CDT Respiratory Rate 98% 09/02/2017 9:48 PM CDT Oxygen Saturation - - Inhaled Oxygen Concentration 99.8 kg (220 lb) 09/02/2017 9:48 PM CDT Weight 172.7 cm (5' 8") 09/02/2017 9:48 PM CDT Height 33.45 09/02/2017 9:48 PM CDT Body Mass Index documented in this encounter Discharge Instructions * Instructions* Keo Bryan MD - 09/02/2017 You may use [id number]-[id number]-[id number] strength ibuprofen (200 mg tablets) as follows: 3 t ablets by mouth every 6 hours as needed for pain. Return to the emergency depar tment for any worsening symptoms. * Attachments The following attachments cannot be sent through Care Everywhere.* Bruises (Contusions) (South African) documented in this encounter Medications at Time of Discharge Start Date End Date Medication Sig Dispensed Refills albuterol (PROVENTIL HFA) Inhale 2 0 90 mcg/actuation HFA puffs every 6 inhaler (six) hours as needed for wheezing. documented as of this encounter ED Notes * Leidy Barajas RN - 09/02/2017 10:19 PM CDT Maldonado wrap applied to right wrist. * Keo Bryan MD - 09/02/2017 10:13 PM CDT 09/02/2017 [facility] History Chief Complaint Patient presents with Hand Injury Pt states she shut her right hand in car door tonight 36-year-old female presents to the emergency department with complaint of right wrist pain. The patient states that approximately 1900 this evening, she was ar riving late to work and accidentally shut her right hand in the car door. The p atient states that she attempted to work after the injury, however she started d ropping parts on the floor. 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 She stated that she had injured herself prior to work. They stated that the patient had to be medically evaluated prior to returning to work. Patient came to the emergency department for evaluation. Patient states that her pain is mo stly along the base of the right thumb. Patient states that she is able to move all digits and move at the wrist and she states that she does not feel she broke anything. Patient states she came in she was instructed to come and be evalua jonathan before returning to work. Of note the patient has had multiple visits to [facility] emergency department for injury related complaints. The patient states that s he feels safe at home and states that she is not being abused by anyone close to her. Past Medical History: Diagnosis Date Migraine Seizure (HCC) one time post . Past Surgical History: Procedure Laterality Date APPENDECTOMY SECTION DENTAL SURGERY History reviewed. No pertinent family history. Social History Substance Use Topics Smoking status: Never Smoker Smokeless tobacco: Never Used Alcohol use Yes Comment: socially Review of Systems Constitutional: Negative. HENT: Negative. Musculoskeletal: Positive for arthralgias (Right wrist). Skin: Negative. Neurological: Negative for dizziness, weakness and numbness. Hematological: Negative. Physical Exam BP 124/76 (BP Location: Right arm) | Pulse 101 | Temp 37.1 C (98.7 F) (Ora l) | Resp 16 | Ht 1.727 m (5' 8") | Wt 99.8 kg (220 lb) | SpO2 98% | BMI 33 .45 kg/m Physical Exam Constitutional: She is oriented to person, place, and time. She appears well-dev eloped and well-nourished. No distress. Musculoskeletal: Right wrist: She exhibits tenderness (Tenderness palpation along right then ar eminence). She exhibits no bony tenderness, no swelling, no crepitus and no d eformity. Neurological: She is alert and oriented to person, place, and time. No cranial n erve deficit or sensory deficit. Coordination normal. Skin: Skin is warm and dry. Capillary refill takes less than 2 seconds. No rash noted. No erythema. ED Course Procedures MDM Number of Diagnoses or Management Options Diagnosis management comments: Exam of the right wrist is benign. In speaking w ith the patient, she agrees that there is a small risk of broken bones in the wr ist. The patient does not feel she needs an x-ray and I agree with her on this based off of her exam. The patient was instructed to employ RICE therapy, and t his was initiated with application of an Maldonado wrap and administration of ibuprofe n in the emergency department. Advised the patient to follow-up with primary do ctor in 1 week if symptoms are not improving. Patient was provided with a note for work stating that she could return tomorrow to her scheduled shift. Advise return emergency department for any worsening symptoms. Patient voiced understa nding and agreement with treatment plan. Risk of Complications, Morbidity, and/or Mortality Presenting problems: minimal Diagnostic procedures: minimal Management options: minimal Patient Progress Patient progress: improved ED Clinical Impression 1. Contusion of right wrist, initial encounter Patient ED Dispo ED Disposition Discharge Keo Bryan MD 09/02/17 4052 documented in this encounter Plan of Treatment Not on filedocumented as of this encounter Visit Diagnoses Diagnosis Contusion of right wrist, initial encounter - Primary documented in this encounter Administered Medications Action Date Dose Rate Site Medication Order MAR Action 09/02/2017 10:17 PM CDT 600 mg ibuprofen (ADVIL,MOTRIN) tablet 600 mg Given 600 mg, Oral, Once, Indications: Pain, 09/02/17 at 2230, For 1 dose documented in this encounter
--- OUTSIDE RECORDS SUMMARY | 2018-10-27 01:46 | XMS REPORT | Encounter Summary ---
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 Unavailable Reason for Visit * Reason Comments Fall fell on concrete from standing position, hit back of head and back, no LOC, c/o head and lower back pain Encounter Details Care Team Description Date Type Department Fall, initial encounter (Primary Dx); Head injury, initial encounter; Acute low back pain without sciatica, unspecified back pain laterality 07/10/2017 Emergency [facility] [address] [place] [address] Social History Date Tobacco Use Types Packs/Day [...] Signs Reading Time Taken Comments Vital Sign 136/67 07/10/2017 9:55 PM CDT Blood Pressure 80 07/10/2017 9:55 PM CDT Pulse 36.8 C (98.3 F) 07/10/2017 7:47 PM CDT Temperature 16 07/10/2017 9:55 PM CDT Respiratory Rate 98% 07/10/2017 9:55 PM CDT Oxygen Saturation - - Inhaled Oxygen Concentration 99.8 kg (220 lb) 07/10/2017 7:47 PM CDT Weight 172.7 cm (5' 8") 07/10/2017 7:47 PM CDT Height 33.45 07/10/2017 7:47 PM CDT Body Mass Index documented in this encounter Discharge Instructions * Instructions* Nina Stern PA-C - 07/10/2017 You can alternate tylenol and ibuprofen at home Apply ice several times a day to tender areas Follow up with your family doctor as needed or return to the ED for any worsenin g symptoms * Attachments The following attachments cannot be sent through Care Everywhere.* BACK PAIN (ACUTE OR CHRONIC) (MACEDONIAN) * FALL, MECHANICAL (MACED[place]IAN) documented in this encounter ED Notes * Ernesto Castro RN - 07/10/2017 9:58 PM CDT Pt DC'D from ED, vss, ambulated from room without difficulty, A&Ox4, discharge paperwork given to pt and addressed any questions needed, pt stated understanding of dc plan. 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 Fall Associated symptoms include headaches. Pertinent negatives include no fever, no numbness, no nausea and no vomiting. Past Medical History: Diagnosis Date Migraine Seizure (HCC) one time post . Past Surgical History: Procedure Laterality Date APPENDECTOMY SECTION DENTAL SURGERY No family history on file. Social History Substance Use Topics Smoking status: Never Smoker Smokeless tobacco: Never Used Alcohol use Yes Comment: socially Review of Systems Constitutional: Negative. Negative for chills and fever. Eyes: Negative. Negative for visual disturbance. Gastrointestinal: Negative. Negative for nausea and vomiting. Musculoskeletal: Positive for back pain. Negative for gait problem. Neurological: Positive for headaches. Negative for numbness. All other systems reviewed and are negative. Physical Exam BP (!) 140/66 (BP Location: Right arm) | Pulse 84 | Temp 36.8 C (98.3 F) ( Oral) | Resp 16 | Ht 1.727 m (5' 8") | Wt 99.8 kg (220 lb) | LMP 06/26/2017 | SpO2 100% | BMI 33.45 kg/m Weight Method: Stated Physical Exam Constitutional: She is oriented to person, place, and time. Vital signs are norm al. She appears well-developed and well-nourished. No distress. HENT: Head: Normocephalic and atraumatic. Eyes: Conjunctivae and EOM are normal. Pupils are equal, round, and reactive to light. Neck: Normal range of motion and full passive range of motion without pain. Neck supple. No spinous process tenderness and no muscular tenderness present. Cardiovascular: Normal rate, regular rhythm and normal heart sounds. Pulmonary/Chest: Effort normal and breath sounds normal. Musculoskeletal: Normal range of motion. Cervical back: She exhibits normal range of motion, no tenderness and no joceline ny tenderness. Thoracic back: She exhibits no tenderness and no bony tenderness. Lumbar back: She exhibits tenderness. She exhibits normal range of motion. Back: Neurological: She is alert and oriented to person, place, and time. She has norm al strength. No cranial nerve deficit or sensory deficit. Gait normal. GCS eye s ubscore is 4. GCS verbal subscore is 5. GCS motor subscore is 6. Skin: Skin is warm and dry. Nursing note and vitals reviewed. Results for orders placed or performed during the hospital encounter of 07/10/17 (from the past 24 hour(s)) Urine Test Result Value Ref Range UCG Urine Negative Negative XR Lumbar Spine 2 or 3 views Final Result Normal lumbar spine. I have reviewed all of the labs and radiology studies. ED Course 36 yo female with lower back pain and headache after ground level fall this even ing Pt with no LOC No outward signs of findings of trauma to her head and normal neurologic exam She has no neck tenderness with FROM Given tenderness along lumbar spine, xray obtained though negative Pt treated here with Ibuprofen Encouraged continued NSAIDs and ice at home with PCP follow up as needed Procedures MDM Number of Diagnoses or Management Options Acute low back pain without sciatica, unspecified back pain laterality: new and requires workup Fall, initial encounter: new and requires workup Head injury, initial encounter: new and does not require workup Amount and/or Complexity of Data Reviewed Tests in the radiology section of CPT: ordered and reviewed Risk of Complications, Morbidity, and/or Mortality Presenting problems: low Diagnostic procedures: low Management options: minimal Patient Progress Patient progress: stable ED Clinical Impression 1. Fall, initial encounter 2. Head injury, initial encounter 3. Acute low back pain without sciatica, unspecified back pain laterality Patient ED Dispo ED Disposition Discharge Nina Stern PA-C 07/10/172150 documented in this encounter Plan of Treatment Not on filedocumented as of this encounter Procedures Comments Procedure Name Priority Date/Time Associated Diagnosis XR LUMBAR SPINE 2 OR 3 STAT 07/10/2017 VIEWS 9:31 PM CDT URINE TEST STAT 07/10/2017 8:50 PM CDT documented in this encounter Results * XR Lumbar Spine 2 or 3 views (07/10/2017 9:31 PM CDT) Specimen Impressions Performed At Normal lumbar spine. JOSE Narrative Performed At Patient: JIGNESH SOLER Sex#:F # [id number] Reilly#:[id number] Location:[facility] ED BED-17Accession#: [id number] Procedure Requested:[id number] XR LUMBAR SPINE 2 OR 3 VIEWS Reason for Exam:midline pain after ground level fall Exam Ordered: Exam Date/Time: Begin exam date/time: Reading Site: [facility] DATE:07/10/2017 9:45 PM EXAM:XR LUMBAR SPINE 2 OR 3 VIEWS INDICATION:midline pain after ground level fall FINDINGS:Lumbar spine is unremarkable.No fracture or alignment abnormality present.Intervertebral disc height is well maintained. No significant degenerative change. Procedure Note Interface, Rad Results In - 07/10/2017 9:48 PM CDT Patient: BERNIE SOLER Sex#: F # [id number] Reilly#: [id number] Location: [facility] ED BED-17 Procedure Requested: [id number] XR LUMBAR SPINE 2 OR 3 VIEWS Reason for Exam: midline pain after ground level fall Exam Ordered: 07/10/20172024 Exam Date/Time: 07/10/20172130 Begin exam date/time: 07/10/20172119 Reading Site: [facility] DATE: 07/10/2017 9:45 PM EXAM: XR LUMBAR SPINE 2 OR 3 VIEWS INDICATION: midline pain after ground level fall FINDINGS: Lumbar spine is unremarkable. No fracture or alignment abnormality present. Intervertebral disc height is well maintained. No significant degenerative change. IMPRESSION Normal lumbar spine. Performing Organization Address City/[facility] Phone Number JOSE * Urine Test (07/10/2017 8:50 PM CDT) [facility] Urine NegativeComment: Specific Negative [place] gravity is <1.005; dilute [facility] urines may cause false LAB negative results. Specimen Urine Performing Organization Address City/[facility]/Zipcode Phone Number [facility] [address] [place], [place] [id number] [facility] documented in this encounter Visit Diagnoses Diagnosis Fall, initial encounter - Primary Head injury, initial encounter Acute low back pain without sciatica, unspecified back pain laterality documented in this encounter Administered Medications Action Date Dose Rate Site Medication Order MAR Action 07/10/2017 8:26 PM CDT 600 mg ibuprofen (ADVIL,MOTRIN) tablet 600 mg Given 600 mg, Oral, Once, Sivan 07/10/17 at 2025, For 1 dose documented in this encounter
--- OUTSIDE RECORDS SUMMARY | 2018-10-27 01:46 | XMS REPORT | Encounter Summary ---
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 states that she was seen in our ER that evening, and was given medications 'that are not helping'. also reports tingling down into R fingers. able to display full ROM slowly. Encounter Details Care Team Description Date Type Department Mc Cherry DO [address] [place] [address] [phone] Paraspinal muscle spasm (Primary Dx) 11/07/2015 Emergency [facility] [id number] [place] [address] Social History Date Tobacco Use Types Packs/Day Years Used Never Smoker Smokeless Tobacco: Never Used Drinks/Week oz/Week Comments Alcohol Use occ. Yes Sex Assigned at Date Recorded Female Industry Job Start Date Occupation Not on file Not on file Not on file Travel End Travel History Travel Start No recent travel history available. documented as of this encounter Last Filed Vital Signs Reading Time Taken Comments Vital Sign 142/86 11/07/2015 5:16 PM CDT Blood Pressure 84 11/07/2015 5:16 PM CDT Pulse 37.5 C (99.5 F) 11/07/2015 5:16 PM CDT Temperature 16 11/07/2015 5:16 PM CDT Respiratory Rate 99% 11/07/2015 5:16 PM CDT Oxygen Saturation - - Inhaled Oxygen Concentration 96.7 kg (213 lb 3.2 oz) 11/07/2015 5:16 PM CDT Weight - - Height 32.42 11/05/2015 8:49 PM CDT Body Mass Index documented in this encounter Discharge Instructions * Instructions* Mc Cherry DO - 11/07/2015 Muscle Spasm A muscle spasm (also called a cramp) is an involuntary muscle contraction. The m uscle tightens quickly and strongly. A hard lump may form in the muscle. Muscle spasms are very painful. Read on to learn more about muscle spasms and how to tr eat and prevent them. What Causes Muscles to Spasm? Often, the cause of a muscle spasm is not known.Muscle spasm is due to irritat ion of muscle fibers. Some things can make a muscle spasm more likely. These inc lude: Injury Heavy exercise Overtired muscles A muscle held in one position for a long time Dehydration Low levels of certain minerals in the body Taking certain medications, such as diuretics or water pills Certain medical conditions, such as kidney failure or diabetes Being Stopping a Muscle Spasm Muscle spasms often come and go quickly. When a muscle goes into spasm, very gen tly stretch and massage the muscle. This may help calm the muscle fibers. Then r est the muscle. Preventing Muscle Spasms Although there is little or no evidence that staying hydrated, taking certain vi tamins or minerals or stretching works to prevent cramps, these measures may hel p and have other benefits. Talk to yourhealth care providerabout steps to ta ke to avoid muscle spasms. These may include: Drinking enough fluids to avoid dehydration, especially when you exercise. Taking vitamin or mineral supplements. Getting regular exercise. Stretching regularly. Taking fqqs-wek-beaonka medications such as ibuprofen or naproxen. Taking a prescription muscle relaxant. 6957-2004 [employer]. [address] [place] [address] 488 7. All rights reserved. This information is not intended as a substitute for pro fessional medical care. Always follow your healthcare professional's instruction s. RICE RICE stands for rest, ice, compression, and elevation. These can limit pain and swelling after an injury. RICE may be recommended to help treat fractures, sprai ns, strains, and bruises or bumps. Home care The following explain the details of RICE: Rest. Limit the use of the injured body part. This helps prevent further zaire ge to the body part and gives it time to heal. In some cases, you may need a sli ng, brace, splint, or cast to help keep the body part still until it has healed. Ice. Applying ice right after an injury helps relieve pain and swelling. Wrap a bag of ice in a thin towel. Then, place it over the injured area. Do this for 10 to 15 minutes every3 to 4hours. Continue for the next 1 to 3 days or unt il your symptoms improve. Never put ice directly on your skin or ice an area enzo marlin than 15 minutes at a time. Compression. Putting pressure on an injury helps reduce swelling and provides support. Wrap the injured area firmly with an elastic bandage/wrap. Make sure n ot to wrap the bandage too tightly or you will cut off blood flow to the injured area. If your bandage loosens, rewrap it. Elevation. Keeping an injury raised above the level of your heart reduces swe lling, pain, and throbbing. For instance, if you have a broken leg, it may help to rest your leg on several pillows when sitting or lying down. Try to keep the injured area elevated for at least 2 to 3 hours per day. Follow-up care Follow up with your health care provider, or as advised. When to seek medical advice Call your health care provider right awayif any of these occur: Fever of 100.4F (38C) or higher, or as directed by your health care provi joana Increased pain or swelling in the injured body part Injured body part becomes cold, blue, or numb or tingly Signs of infection. These include warmth in the skin, redness, drainage, or b ad smell coming from the injured body part. [id number] [employer]. [address] [place] [address] 7. All rights reserved. This information is not intended as a substitute for pro fessional medical care. Always follow your healthcare professional's instruction s. documented in this encounter Medications at Time of Discharge Start Date End Date Medication Sig Dispensed Refills 11/05/2015 11/15/2015 orphenadrine (NORFLEX) Take 1 tablet 20 tablet 0 100 mg tabletIndications: (100 mg muscle spasm total) by mouth 2 (two) times a day as needed for muscle spasms. 07/10/2017 clonazePAM (KLONOPIN) 0.5 Take 0.5 mg 0 MG tablet by mouth 3 (three) times a day as needed for anxiety. 11/05/2015 07/10/2017 naproxen (NAPROSYN) 500 Take 1 tablet 60 tablet 0 MG tablet (500 mg total) by mouth 2 (two) times a day with meals. documented as of this encounter ED Notes * Jo AnnMc mackey - 11/07/2015 5:51 PM CDT 11/07/2015 [facility] History Chief Complaint Patient presents with Arm Pain pt reports she had an injury at work 11/04 where she was lifting an object and 'felt a pop' in R shoulder w/immediate pain down R arm. states that she was seen in our ER that evening, and was given medications 'that are not helping'. also reports tingling down into R fingers. able to display full ROM slowly. Patient is a 35 y.o. female presenting with arm pain. The history is provided by the patient and medical records. Arm Pain Location: Shoulder Shoulder location: R shoulder Injury: yes (pulled a drawer at workseveral days ago) Pain details: Quality: Aching Severity: Mild Onset quality: Gradual Timing: Constant Dislocation: no Foreign body present: No foreign bodies Relieved by: putting arm up. Worsened by: Movement Ineffective treatments: None tried Associated symptoms: tingling Associated symptoms: no back pain, no decreased range of motion, no muscle weakn ess, no numbness and no swelling Past Medical History Diagnosis Date Migraine Seizure one time post . Past Surgical History Procedure Laterality Date Appendectomy section Dental surgery History reviewed. No pertinent family history. Social History Substance Use Topics Smoking status: Never Smoker Smokeless tobacco: Never Used Alcohol use Yes Comment: occ. Review of Systems Musculoskeletal: Negative for back pain. All other systems reviewed and are negative. Physical Exam Visit Vitals BP 142/86 (BP Location: Left arm) Pulse 84 Temp 37.5 C (99.5 F) (Tympanic) Resp 16 Wt 96.7 kg (213 lb 3.2 oz) LMP 10/05/2015 (Approximate) SpO2 99% No BMI 32.42 kg/m2 Physical Exam Constitutional: She is oriented to person, place, and time. She appears well-dev eloped and well-nourished. She appears distressed. HENT: Head: Normocephalic and atraumatic. Eyes: EOM are normal. Pupils are equal, round, and reactive to light. Neck: Normal range of motion. Neck supple. Cardiovascular: Normal rate. Pulmonary/Chest: Effort normal. Musculoskeletal: She exhibits tenderness. She exhibits no edema. Arms: Neurological: She is alert and oriented to person, place, and time. Skin: Skin is warm and dry. Psychiatric: She has a normal mood and affect. Her behavior is normal. Judgment and thought content normal. Nursing note and vitals reviewed. ED Course ED Course There is no data filed. Procedures MDM Number of Diagnoses or Management Options Paraspinal muscle spasm: Amount and/or Complexity of Data Reviewed Tests in the radiology section of CPT: reviewed Independent visualization of images, tracings, or specimens: yes The patient's vitals signs are Visit Vitals BP 142/86 (BP Location: Left arm) Pulse 84 Temp 37.5 C (99.5 F) (Tympanic) Resp 16 Wt 96.7 kg (213 lb 3.2 oz) LMP 10/05/2015 (Approximate) SpO2 99% No BMI 32.42 kg/m2 The labs from this visit are No results found for this or any previous visit (from the past 24 hour(s)). The final diagnosis is SNOMED CT(R) 1. Paraspinal muscle spasm MUSCLE PAIN [facility] [employer] [address] [facility] [address] In 1 week New Prescriptions No medications on file The Xrays from this visit are No orders to display Medications - No data to display All labs, xrays, CT's, and EKG's that were performed during this patient's visit were reviewed by me. ED Clinical Impression SNOMED CT(R) 1. Paraspinal muscle spasm MUSCLE PAIN Mc Cherry DO 11/07/15 1753 documented in this encounter Plan of Treatment Not on filedocumented as of this encounter Visit Diagnoses Diagnosis Paraspinal muscle spasm - Primary documented in this encounter
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
--- OUTSIDE RECORDS SUMMARY | 2018-10-27 01:46 | XMS REPORT | Encounter Summary ---
Author Author [facility] Organization [facility] Address Unknown Phone Unavailable Care Team Providers Care Financial Services Manager Name Role Phone PCP Unavailable Reason for Visit * Reason Comments Fall Knee Injury Encounter Details Care Team Description Date Type [place] [address] [place] [address] Contusion of right knee, initial encounter (Primary Dx) 08/13/2017 Emergency [facility] [place] [facility] [address] [place], [place] [id number] Social History Date Tobacco Use Types Packs/Day [...] Signs Reading Time Taken Comments Vital Sign 129/80 08/13/2017 5:32 PM CDT Blood Pressure 103 08/13/2017 5:32 PM CDT Pulse 36.9 C (98.4 F) 08/13/2017 5:32 PM CDT Temperature 18 08/13/2017 5:32 PM CDT Respiratory Rate 98% 08/13/2017 5:32 PM CDT Oxygen Saturation - - Inhaled Oxygen Concentration 99.8 kg (220 lb) 08/13/2017 5:32 PM CDT Weight 172.7 cm (5' 8") 08/13/2017 5:32 PM CDT Height 33.45 08/13/2017 5:32 PM CDT Body Mass Index documented in this encounter Discharge Instructions * Attachments The following attachments cannot be sent through Care Everywhere.* Bruises (Contusions) (Panamanian) * SOFT TISSUE CONTUSION (GREENLANDIC) * LOWER EXTREMITY CONTUSION (GREENLANDIC) documented in this encounter Medications at Time [...] 4 (four) hours as needed for pain. 08/13/2017 08/17/2017 naproxen (NAPROSYN) 500 Take 1 tablet 14 tablet 0 MG tablet (500 mg total) by mouth 2 (two) times a day with meals. documented as of this encounter ED Notes * Gisele Bergman RN - 08/13/2017 6:23 PM CDT Discharge instructions reviewed and signed. Prescription in hand. Patient denies further questions or concerns * Umang Tamayo MD - 08/13/2017 5:44 PM CDT 08/13/2017 [facility] History Chief Complaint Patient presents with Fall Knee Injury This 36-year-old lady presents the history of having been pulled over by her dog this afternoon and she came right on fell right onto her right knee. She compl ains of pain just superior and at the patella of the right knee. She has been a ble walk on it but it has been very painful Past Medical History: Diagnosis Date Migraine Seizure (HCC) one time post . Past Surgical History: Procedure Laterality Date APPENDECTOMY SECTION DENTAL SURGERY No family history on file. Social History Substance Use Topics Smoking status: Never Smoker Smokeless tobacco: Never Used Alcohol use Yes Comment: socially Review of Systems Constitutional: Negative for activity change, appetite change and fever. HENT: Negative for congestion, dental problem, facial swelling, mouth sores, rhi norrhea, sore throat, trouble swallowing and voice change. Eyes: Negative for pain, discharge, redness and visual disturbance. Respiratory: Negative for cough, chest tightness, shortness of breath and wheezi ng. Cardiovascular: Negative for chest pain and leg swelling. Gastrointestinal: Negative for abdominal distention, abdominal pain, nausea and vomiting. Endocrine: Negative for polydipsia and polyuria. Genitourinary: Negative for difficulty urinating, dysuria, flank pain, pelvic pa in, urgency and vaginal bleeding. Musculoskeletal: Positive for arthralgias. Negative for back pain, gait problem, joint swelling and neck pain. She has tenderness and pain over the right patella Skin: Negative for color change, rash and wound. Allergic/Immunologic: Negative for environmental allergies, food allergies and i mmunocompromised state. Neurological: Negative for dizziness, tremors, syncope, weakness, numbness and h eadaches. Hematological: Negative for adenopathy. All other systems reviewed and are negative. Physical Exam BP 129/80 (BP Location: Right arm) | Pulse (!) 103 | Temp 36.9 C (98.4 F) (Oral) | Resp 18 | Ht 1.727 m (5' 8") | Wt 99.8 kg (220 lb) | LMP 08/01/2017 | SpO2 98% | BMI 33.45 kg/m Weight Method: Stated Physical Exam Constitutional: She is oriented to person, place, and time. She appears well-dev eloped and well-nourished. No distress. HENT: Head: Normocephalic and atraumatic. Nose: Nose normal. Mouth/Throat: No oropharyngeal exudate. Eyes: Conjunctivae and EOM are normal. Pupils are equal, round, and reactive to light. Right eye exhibits no discharge. Left eye exhibits no discharge. No scler al icterus. Neck: Normal range of motion. Neck supple. No JVD present. No tracheal deviation present. No thyromegaly present. Cardiovascular: Normal rate and intact distal pulses. Exam reveals no gallop an d no friction rub. No murmur heard. Pulmonary/Chest: Effort normal and breath sounds normal. No stridor. No respirat ory distress. She has no wheezes. She has no rales. She exhibits no tenderness. Abdominal: Soft. Bowel sounds are normal. She exhibits no distension and no mass . There is no tenderness. There is no rebound and no guarding. No hernia. Musculoskeletal: Normal range of motion. She exhibits tenderness. She exhibits n o edema or deformity. She has tenderness over the right patella there is no ligamentous instability Lymphadenopathy: She has no cervical adenopathy. Neurological: She is alert and oriented to person, place, and time. No cranial n erve deficit or sensory deficit. She exhibits normal muscle tone. Coordination n ormal. Skin: Skin is warm and dry. Capillary refill takes less than 2 seconds. No rash noted. She is not diaphoretic. Psychiatric: She has a normal mood and affect. Her behavior is normal. Thought c ontent normal. Nursing note and vitals reviewed. ED Course Procedures MDM Number of Diagnoses or Management Options Contusion of right knee, initial encounter: Diagnosis management comments: This 36-year-old lady presents the history of hav ing been pulled over by her dog this afternoon and she came right on fell right onto her right knee. She complains of pain just superior and at the patella of the right knee. She has been able walk on it but it has been very painful Patient reveals there is some tenderness to the knee there is no swelling no abr asion no other abnormalities Was instructed to limit her weightbearing placed on Naprosyn for pain ice elevat e follow-up with her doctor as needed ED Clinical Impression 1. Contusion of right knee, initial encounter Patient ED Dispo ED Disposition Discharge Umang Tamayo MD 08/13/17 1821 * Gisele Bergman RN - 08/13/2017 5:36 PM CDT Patient arrived to ed via pov with reports of right knee s/p fall. Patient repor ts dog pulled her down. Rates painn 10/14. documented in this encounter Plan of Treatment Not on filedocumented as of this encounter Procedures Comments Procedure Name Priority Date/Time Associated Diagnosis XR KNEE 4 OR MORE VIEWS STAT 08/13/2017 RIGHT 5:54 PM CDT documented in this encounter Results * XR Knee 4 or more views right (08/13/2017 5:54 PM CDT) Specimen Impressions Performed At No evidence of acute fracture or dislocation. Mild degenerative [place]ON arthrosis of the knee. Narrative Performed At Patient: JIGNESH GIVENS Sex#:F # [id number] Reilly#:[id number] Location:[facility] ED ED 06-05Accession#: [id number] Procedure Requested:[id number] XR KNEE 4 OR MORE VIEWS RIGHT Reason for Exam:trauma Exam Ordered:08/13/20171738 Exam Date/Time: Begin exam date/time: Reading Site: [place] [facility] Exam: XR KNEE 4 OR MORE VIEWS RIGHT Clinical history: trauma Comparison: None Findings: Distal femur, proximal tibia and fibula are intact. Patella is intact. No evidence of acute fracture or dislocation. Mild degenerative arthrosis of the medial and patellofemoral compartments. Visualized soft tissues are unremarkable. Procedure Note Interface, Rad Results In - 08/13/2017 6:14 PM CDT Patient: BERNIE GIVENS Sex#: F # [id number] Reilly#: [id number] Location: [facility] ED ED 06-05 Procedure Requested: [id number] XR KNEE 4 OR MORE VIEWS RIGHT Reason for Exam: trauma Exam Ordered: 08/13/20171737 Exam Date/Time: 08/13/20171753 Begin exam date/time: 08/13/20171737 Reading Site: [place] [facility] Exam: XR KNEE 4 OR MORE VIEWS RIGHT Clinical history: trauma Comparison: None Findings: Distal femur, proximal tibia and fibula are intact. Patella is intact. No evidence of acute fracture or dislocation. Mild degenerative arthrosis of the medial and patellofemoral compartments. Visualized soft tissues are unremarkable. IMPRESSION No evidence of acute fracture or dislocation. Mild degenerative arthrosis of the knee. Performing Organization Address City/State/Zipcode Phone Number [place] documented in this encounter Visit Diagnoses Diagnosis Contusion of right knee, initial encounter - Primary documented in this encounter
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
--- OUTSIDE RECORDS SUMMARY | 2018-10-27 01:47 | XMS REPORT | Encounter Summary ---
Author Author [facility] Organization [facility] Address Unknown Phone Unavailable Care Team Providers Care Oil Dipper Name Role Phone PCP Unavailable Reason for Visit * Reason Comments Migraine states migraine that started friday. states hx of migraines and feels the same. nausea/lightsens. Encounter Details Care Team Description Date Type Department Mc Cherry DO [address] [place] [address] [phone] Nonintractable migraine, unspecified migraine type (Primary Dx) 08/14/2015 Emergency [facility] [id number] [place] [id number] Social History Date Tobacco Use Types Packs/Day Years Used Never Smoker Drinks/Week oz/Week Comments Alcohol Use occ. Yes Sex Assigned at Date Recorded Female Industry Job Start Date Occupation Not on file Not on file Not on file Travel End Travel History Travel Start No recent travel history available. documented as of this encounter Last Filed Vital Signs Reading Time Taken Comments Vital Sign 152/78 08/14/2015 6:22 PM CDT Blood Pressure 78 08/14/2015 6:22 PM CDT Pulse 36.4 C (97.5 F) 08/14/2015 4:26 PM CDT Temperature 16 08/14/2015 6:22 PM CDT Respiratory Rate 98% 08/14/2015 6:22 PM CDT Oxygen Saturation - - Inhaled Oxygen Concentration - - Weight - - Height - - Body Mass Index documented in this encounter Discharge Instructions * Instructions* Mc Cherry DO - 08/14/2015 Migraine Headache: Stages and Treatment A migraine headache tends to progress in stages. Learning these stages can help you better understand what is happening. Then you can learn ways to reduce pain and relieve other symptoms. Methods for relieving your symptoms include self-car e and medications. Migraine Stages Migraines tend to progress through 4 stages. Many people don't have all stages, and stages may differ with each headache: Prodrome. A few hours to a day or so before the headache, you may feel tired, uneasy, or hitchcock. You may also feel bloated or crave certain foods. Aura. Up to an hour before the headache starts, some migraine sufferers exper ience aura flashing lights, blind spots, other vision problems, confusion, difficulty speaking, or other neurologic symptoms. Headache. Moderate to severe pain affects one side of the head and then can s pread to both sides, often along with nausea. You may be highly sensitive to lig ht, sound, and odors. Vomiting or diarrhea may also occur. This stage lasts 4 to 72 hours. Postdrome. After your headache ends, you may feel tired, achy, and "washed ou t." This may last for a day or so. Self-Care During a Migraine Use a cold compress. Wrap a thin cloth around a cold pack, a cold can of soda , or a bag of frozen vegetables. Apply this to your worship or other pain site. Drink fluids. If nausea makes it hard to drink, try sucking on ice. Rest. If possible, lie down. Try not to bend over, as this may increase your pain. Try caffeine. Some people find that drinking fluids with caffeine, such as co ffee or tea, helps to lessen migraine pain. Using Medications Work with your health care provider to find the right medications for you. Medic ations for migraine may relieve pain (analgesics), relieve nausea, or attack the migraine's root causes (migraine-specific medications). 4768-2330 [employer]. [address] [place] [address] 0866 7. All rights reserved. This information is not intended as a substitute for pro fessional medical care. Always follow your healthcare professional's instruction s. documented in this encounter Medications at Time of Discharge Start Date End Date Medication Sig Dispensed Refills 08/14/2015 11/05/2015 albuterol (VENTOLIN HFA) Inhale 2 1 Inhaler 0 90 mcg/actuation HFA puffs every 6 inhaler (six) hours as needed for wheezing. 07/10/2017 clonazePAM (KLONOPIN) 0.5 Take 0.5 mg 0 MG tablet by mouth 3 (three) times a day as needed for anxiety. documented as of this encounter ED Notes * Morgan, Rob M - 08/14/2015 5:12 PM CDT Pt states that her pain is unchanged. Will let dr. cherry know. Will monitor. * Mc Cherry DO - 08/14/2015 4:38 PM CDT 08/14/2015 [facility] History Chief Complaint Patient presents with Migraine states migraine that started friday. states hx of migraines and feels the same . nausea/lightsens. HPI Comments: This is a 34-year-old female has a history of migraine cephalgia c omplaining of a migraine today that is associated with nausea. Patient also ligh t sensitive. Patient denies weakness, chest pain, shortness of breath, diarrhea. Patient is a 34 y.o. female presenting with migraines. The history is provided b y the patient and medical records. Migraine This is a recurrent problem. Past Medical History Diagnosis Date Migraine Seizure one time post . Past Surgical History Procedure Laterality Date Appendectomy section Dental surgery History reviewed. No pertinent family history. History Substance Use Topics Smoking status: Never Smoker Smokeless tobacco: Not on file Alcohol Use: Yes Comment: occ. Review of Systems All other systems reviewed and are negative. Physical Exam BP 131/84 mmHg | Pulse 74 | Temp(Src) 36.4 C (97.5 F) | Resp 16 | SpO2 100% | LMP 07/25/2015 Physical Exam Constitutional: She is oriented to person, place, and time. She appears well-dev eloped and well-nourished. She appears distressed. HENT: Head: Normocephalic and atraumatic. Eyes: Conjunctivae and EOM are normal. Pupils are equal, round, and reactive to light. Neck: Normal range of motion. Neck supple. No JVD present. Cardiovascular: Normal rate, regular rhythm and normal heart sounds. Pulmonary/Chest: Effort normal. No stridor. No respiratory distress. Abdominal: Soft. Bowel sounds are normal. Musculoskeletal: Normal range of motion. Neurological: She is alert and oriented to person, place, and time. Skin: Skin is warm and dry. She is not diaphoretic. Psychiatric: She has a normal mood and affect. Her behavior is normal. Judgment and thought content normal. Nursing note and vitals reviewed. ED Course Procedures MDM Number of Diagnoses or Management Options Nonintractable migraine, unspecified migraine type: Diagnosis management comments: Patient reevaluated, she has no neurological defi cits, her pain is much better. Amount and/or Complexity of Data Reviewed Decide to obtain previous medical records or to obtain history from someone othe r than the patient: yes Review and summarize past medical records: yes The patient's vitals signs are BP 131/84 mmHg | Pulse 74 | Temp(Src) 36.4 C (97.5 F) | Resp 16 | SpO2 100% | LMP 07/25/2015 The labs from this visit are No results found for this or any previous visit (from the past 24 hour(s)). The final diagnosis is SNOMED CT(R) 1. Nonintractable migraine, unspecified migraine type MIGRAINE [facility] [employer] [address] [facility] [address] In 3 days New Prescriptions No medications on file The Xrays from this visit are No orders to display Medications diphenhydrAMINE (BENADRYL) injection 25 mg (25 mg Intravenous Given 08/14/15 1632) ketorolac (TORADOL) injection 30 mg (30 mg Intravenous Given 08/14/15 1634) promethazine (PHENERGAN) injection 25 mg (25 mg Intramuscular Given 08/14/15 1635) sodium chloride 0.9% (NS) IV Bolus (0 mL Intravenous Stopped 08/14/15 1754) morphine 4 mg (4 mg Intravenous Given 08/14/15 1748) All labs, xrays, CT's, and EKG's that were performed during this patient's visit were reviewed by me. ED Clinical Impression SNOMED CT(R) 1. Nonintractable migraine, unspecified migraine type MIGRAINE Mc Cherry DO 08/14/15 1813 documented in this encounter Plan of Treatment Not on filedocumented as of this encounter Visit Diagnoses Diagnosis Nonintractable migraine, unspecified migraine type - Primary documented in this encounter Administered Medications Action Date Dose Rate Site Medication Order MAR Action 08/14/2015 4:32 PM CDT 25 mg diphenhydrAMINE (BENADRYL) injection 25 Given mg 25 mg, Intravenous, Once, 08/14/15 at 1627, For 1 dose 08/14/2015 4:34 PM CDT 30 mg ketorolac (TORADOL) injection 30 mg Given 30 mg, Intravenous, Once, 08/14/15 at 1627, For 1 dose 08/14/2015 5:48 PM CDT 4 mg morphine 4 mg Given 4 mg, Intravenous, Once, Fri08/14/15 at 1748, For 1 dose 08/14/2015 4:35 PM CDT 25 mg Left Upper Outer Quadrant promethazine (PHENERGAN) injection 25 mg Given 25 mg, Intramuscular, Once, Fri08/14/15 at 1627, For 1 dose 08/14/2015 4:32 PM CDT 1,000 mL 2000 mL/hr sodium chloride 0.9% (NS) IV Bolus New Bag 1,000 mL, Intravenous, Administer over 30 Minutes, Once, Fri08/14/15 at 1627, For 1 dose documented in this encounter
--- OUTSIDE RECORDS SUMMARY | 2018-10-27 01:47 | XMS REPORT | Encounter Summary ---
Author Author [facility] Organization [facility] Address Unknown Phone Unavailable Care Team Providers Care Integration Director Name Role Phone PCP Unavailable Encounter Details Care Team Description Date Type Department Jose Bagley DO [address] [place] [address] [phone] Tacos Toro MD No Forwarding Address Infections of Genitourinary Tract, Previous Condition 05/08/2007 [facility] [address] [place] [id number] Social History Date Tobacco Use Types Packs/Day Years Used Never Assessed Sex Assigned at Date Recorded Female Industry Job Start Date Occupation Not on file Not on file Not on file Travel End Travel History Travel Start No recent travel history available. documented as of this encounter Plan of Treatment Not on filedocumented as of this encounter Procedures Comments Procedure Name Priority Date/Time Associated Diagnosis WET PREP Routine 05/08/2007 2:00 PM VAT OPERATOR CULTURE, GENITAL Routine 05/08/2007 2:00 PM VAT OPERATOR NEISSERIA GONORRHOEAE PCR Routine 05/08/2007 2:00 PM VAT OPERATOR CHLAMYDIA PCR Routine 05/08/2007 2:00 PM VAT OPERATOR URINALYSIS (INCLUDES Routine 05/08/2007 MICROSCOPIC REVIEW, IF 1:30 PM VAT OPERATOR INDICATED) CULTURE, URINE Routine 05/08/2007 1:30 PM VAT OPERATOR documented in this encounter Results * Wet Prep (05/08/2007 2:00 PM VAT OPERATOR) Specimen Vaginal Narrative Performed At REPORT [facility] [id number] F26 YRS ER PARASITOLOGY PROCEDURE: ORDERABLE WET PREP COLLECTED: 05/08/071399 SOURCE: VAGINA RECEIVED: 05/08/071407 CERVIX STARTED:05/08/071413 FINAL REPORT FINAL REPORT 05/08/071413 Clue cells seen No TRICHOMONAS VAGINALIS seen No YEAST seen Performing Organization Address [facility] Phone Number RL [address] [place] [address] [facility] * Chlamydia PCR (05/08/2007 2:00 PM VAT OPERATOR) Source [facility] Chlamydia NotDetec Not[facility] trachomatis PCR Specimen Performing Organization Address [facility] Phone Number RL [address] [place] [address] [facility] * Neisseria gonorrhoeae PCR (05/08/2007 2:00 PM VAT OPERATOR) Source CERVIX [facility] Neisseria NotDetec NotDetec [facility] gonorrhoeae PCR Specimen Performing Organization [facility] Phone Number RL [address] [place] [address] [facility] * Culture, Genital (05/08/2007 2:00 PM VAT OPERATOR) Specimen Vaginal Narrative Performed At REPORT [facility] [id number] F26 YRS ER BACTERIOLOGY PROCEDURE: GENITAL CULTURE @COLLECTED: 05/08/071399 SOURCE: VAGINAL RECEIVED: 05/08/071417 VAG STARTED:05/08/07 144 FINAL REPORT FINAL REPORT 05/11/07 0735 Moderate mixed vaginal marcela isolated No NEISSERIA GONORRHOEAE isolated on culture. No beta STREPTOCOCCUS group B isolated on culture @=GENITAL CULTPerformed [facility] Performing Organization Address [facility] Phone Number [address] [place] [address] [facility] * Urinalysis (05/08/2007 1:30 PM VAT OPERATOR) Appearance, YELLOW [facility] Urine Specific 1.015 <1.030 [facility] [place], UA PH Urine 7.5 5.0 - 8.0 [facility] Hemoglobin NEGATIVE NEGATIVE [facility] Urine Ketones Urine NEGATIVE NEGATIVE [facility] Glucose Urine NEGATIVE NEGATIVE [facility] Protein Urine NEGATIVE NEGATIVE [facility] Qual Leukocyte NEGATIVE NEGATIVE [facility] Esterase Urobilinogen NEGATIVE NEGATIVE [facility] Urine Bilirubin Urine NEGATIVE NEGATIVE [facility] Specimen Performing Organization Address [facility] Phone Number SLRL [address] [place] [address] SUNQUEST * Culture, Urine (05/08/2007 1:30 PM VAT OPERATOR) Specimen Urine Narrative Performed At REPORT [facility] [id number] F25 [facility] BACTERIOLOGY PROCEDURE: URINE CULTURECOLLECTED: 05/08/07 1330 SOURCE: URINE RECEIVED: 05/08/07 1356 CLEAN VOIDED URINE STARTED:05/08/07 1407 FINAL REPORT FINAL REPORT 05/10/07 1247 Three or more bacterial species isolated from urine usually indicates superficial or fecal contamination. Submission of another specimen is suggested. Performing Organization Address [facility] Phone Number SLRL [address] [place] [address] [facility] documented in this encounter Visit Diagnoses Diagnosis Infections of genitourinary tract, condition or complication(646.64) Infections of genitourinary tract, condition or complication documented in this encounter
--- OUTSIDE RECORDS SUMMARY | 2018-10-27 01:47 | XMS REPORT | Encounter Summary ---
Author Author [facility] Organization [facility] Address Unknown Phone Unavailable Care Team Providers Care Powder Mill Operator Name Role Phone PCP Unavailable Encounter Details Care Team Description Date Type Department 09/06/2015 Emergency [facility] [address] [place] [address] Social History Date Tobacco Use Types Packs/Day Years Used Never Smoker Smokeless Tobacco: Never Used Drinks/Week oz/Week Comments Alcohol Use occ. Yes Sex Assigned at Date Recorded Female Industry Job Start Date Occupation Not on file Not on file Not on file Travel End Travel History Travel Start No recent travel history available. documented as of this encounter Medications at Time of Discharge Start Date End Date Medication Sig Dispensed Refills 08/14/2015 11/05/2015 albuterol (VENTOLIN HFA) Inhale 2 1 Inhaler 0 90 mcg/actuation HFA puffs every 6 inhaler (six) hours as needed for wheezing. 07/10/2017 clonazePAM (KLONOPIN) 0.5 Take 0.5 mg 0 MG tablet by mouth 3 (three) times a day as needed for anxiety. 11/05/2015 divalproex (DEPAKOTE DR) Take 750 mg 0 250 MG delayed-release by mouth tablet daily. documented as of this encounter Plan of Treatment Not on filedocumented as of this encounter Visit Diagnoses Not on filedocumented in this encounter
--- OUTSIDE RECORDS SUMMARY | 2018-10-27 01:47 | XMS REPORT | Encounter Summary ---
Author Author [facility] Address Unknown Phone Unavailable Care Team Providers Care Master Ship Name Role Phone PCP Unavailable Encounter Details Care Team Description Date Type Department [place] [id number] [place] [address] [phone] 10/30/2005 [place] [address] Social History Date Tobacco Use Types Packs/Day [...]
--- OUTSIDE RECORDS SUMMARY | 2018-10-27 01:47 | XMS REPORT | Encounter Summary ---
Author Author [facility] Organization [facility] Address Unknown Phone Unavailable Care Team Providers Care Sports Team Marketing Intern Name Role Phone PCP Unavailable Reason for Visit * Reason Comments Ankle Pain Pt reports falling down stairs one hour prior to arrival right ankle pain denies hitting head or LOC Encounter Details Care Team Description Date Type Department Belén Comer Jr., MD [address] [place] [address] [phone] Ankle sprain, right, initial encounter (Primary Dx); Foot sprain, right, initial encounter 08/26/2015 [place] [address] Social History Date Tobacco Use Types Packs/Day [...] Signs Reading Time Taken Comments Vital Sign 135/78 08/26/2015 11:52 AM CDT Blood Pressure 87 08/26/2015 11:52 AM CDT Pulse 36.9 C (98.5 F) 08/26/2015 11:52 AM CDT Temperature 16 08/26/2015 11:52 AM CDT Respiratory Rate 98% 08/26/2015 11:52 AM CDT Oxygen Saturation - - Inhaled Oxygen Concentration 97.7 kg (215 lb 6.2 oz) 08/26/2015 11:52 AM CDT Weight 165.1 cm (5' 5") 08/26/2015 11:52 AM CDT Height 35.84 08/26/2015 11:52 AM CDT Body Mass Index documented in this encounter Discharge Instructions * Instructions* Belén Comer Jr., MD - 08/26/2015 Ankle Sprain,with X-Ray A sprain is an injury to the ligaments or capsule that holds a joint together. T here are no broken bones. Most sprains take from four to six weeks to heal. If t he ligament is completely torn (severe sprain), it can take several months to re cover. Mild to moderate sprains may be treated with an elastic wrap or an in-shoe splin t to provide support and prevent re-injury. A mild sprain may not require any ad ditional support. A severe sprain may require surgery to repair. Home care The following guidelines will help you care for your injury at home: Stay off the injured leg as much as possible until you can walk on it without pain. If you have a lot of pain with walking, crutches or a walker may be presc ribed. (These can be rented or purchased at many pharmacies and surgical or orth opedic supply stores). Follow your doctor's advice regarding when to begin beari ng weight on that leg. Keep your leg elevated to reduce pain and swelling. When sleeping, place a pi llow under the injured leg. When sitting, support the injured leg so it is level with your waist. This is very important during the first 48 hours. Apply an ice pack (ice cubes in a plastic bag, wrapped in a towel) over the i njured area for 20 minutes every 12 hours the first day. You can place the ic e pack directly over the splint/cast. If you were given a boot, open it to apply the ice pack. Continue with ice packs 34 times a day for the next two days, then as needed for the relief of pain and swelling. You may use acetaminophen or ibuprofen to control pain, unless another pain m edicine was prescribed. If you have chronic liver or kidney disease or ever had a stomach ulcer or GI bleeding, talk with your doctor before using these medicin es. You may return to sports after healing, when you can run without pain. A sprained ankle is at risk for re-injury during the first six weeks. During that time, protect your ankle with an in-shoe splint that prevents tilting of yo ur ankle from side to side. This is very important if you do active work or play sports during that time. Follow-up care Any X-rays you had today dont show any broken bones, breaks, or fractures. So metimes fractures dont show up on the first X-ray. Bruises and sprains can so metimes hurt as much as a fracture. These injuries can take time to heal complet sugey. If your symptoms dont improve or they get worse, talk with your doctor. You may need a repeat X-ray. When to seek medical advice Call your health care provider right awayif any of these occur: The plaster cast or splint gets wet or soft The fiberglass cast or splint gets wet and does not dry for 24 hours Pain or swelling increases, or redness appears Toes become cold, blue, numb or tingly Re-injure your ankle [id number] [employer]. [address] [place] [address], [place], [place] [address]. All rights reserved. This information is not intended as a substitute for pro fessional medical care. Always follow your healthcare professional's instruction s. Foot Sprain A sprain is a stretching or tearing of the ligaments that hold a joint together. There are no broken bones. Sprains take from 36 weeks to heal. A sprain may be treated with a splint, walking cast or special boot. Mild sprains may not req uire any additional support. Home care The following guidelines will help you care for your injury at home: Keep your leg elevated when sitting or lying down. This is very important dur ing the first 48 hours to reduce swelling. Stay off the injured foot as much as possible until you can walk on it without pain. If needed, you may use crutches during the first week for this purpose. (Crutches can be rented at many [employer] or surgical/orthopedic supply stores). You may be given a cast shoe to wear to prevent movement in your foot. If not , you can use a sandal or any shoe that does not put pressure on the injured are a until the swelling and pain go away. If using a sandal, be careful not to stri ke your foot against anything, since another injury could make the sprain worse. Apply an ice pack (ice cubes in a plastic bag, wrapped in a towel) over the i njured area for 20 minutes every 12 hours the first day. You should continue with ice packs 34 times a day for the next two days. Continue the use of ice packs for relief of pain and swelling as needed. You may use acetaminophen or ibuprofen to control pain, unless another medici ne was prescribed. If you have chronic liver or kidney disease or ever had a sto mach ulcer or GI bleeding, talk with your doctor before using these medicines. If you were given a splint or cast, keep it dry. Bathe with your splint/cast well out of the water, protected with a large plastic bag, rubber-banded at the top end. If a fiberglass splint or cast gets wet, you can dry it with a hair-dry er. You may return to sports after healing, when you can run without pain. Follow-up care Follow up with your doctor as directed. Any X-rays you had today dont show any broken bones, breaks, or fractures. So metimes fractures dont show up on the first X-ray. Bruises and sprains can so metimes hurt as much as a fracture. These injuries can take time to heal complet sugey. If your symptoms dont improve or they get worse, talk with your doctor. You may need a repeat X-ray. When to seek medical advice Call your health care provider right awayif any of these occur: The plaster cast or splint gets wet or soft The fiberglass cast or splint gets wet and does not dry for 24 hours Pain or swelling increases, or redness appears Toes become cold, blue, numb, or tingly [id number] [employer]. [address] [place] [address] 7. All rights reserved. This information is not intended as a substitute for pro fessional medical care. Always follow your healthcare professional's instruction s. documented in this encounter Medications at Time of Discharge Start Date End Date Medication Sig Dispensed Refills 08/26/2015 09/05/2015 oxyCODONE-acetaminophen Take 1 tablet 20 tablet 0 (PERCOCET) 5-325 mg per by mouth tablet every 4 (four) hours as needed. 08/14/2015 11/05/2015 albuterol (VENTOLIN HFA) Inhale 2 [...] tablet daily. documented as of this encounter ED Notes * Jasson Castellano Jr., RN - 08/26/2015 1:18 PM CDT Pt refused crutches, stating " she would be okay with the air cast and post-op s hoe." Pt ambulated out to private car steady gait. C DT * Belén Comer Jr., MD - 08/26/2015 1:01 PM CDT 08/26/2015 [facility] History Chief Complaint Patient presents with Ankle Pain Pt reports falling down stairs one hour prior to arrival right ankle pain augusto es hitting head or LOC HPI Bernie Givens is a 34-year-old female presents with right ankle pain. The jose a ent states that she was walking her dog down the steps, and the dog "took off" w hen she reached the bottom of the stairs. The patient tripped the last one to 2 steps and fell, twisting her ankle. The patient did not have any significant clari n with the fall itself but states that she had more pain from the twisting of he r ankle and foot. She was able to walk after the fall occurred but with severe p ain to both the dorsum of her foot as well as the medial aspect of the right ank le. The patient states that she did not strike her head or have any loss of cons ciousness with the fall. She denied any other hip, knee, or any other joint pain after falling. Past Medical History Diagnosis Date Migraine Seizure one time post . Past Surgical History Procedure Laterality Date Appendectomy section Dental surgery No family history on file. History Substance Use Topics Smoking status: Never Smoker Smokeless tobacco: Never Used Alcohol Use: Yes Comment: occ. Review of Systems Constitutional: Negative for fever and chills. HENT: Negative for congestion and rhinorrhea. Respiratory: Negative for cough and shortness of breath. Cardiovascular: Negative for chest pain. Gastrointestinal: Negative for nausea, vomiting and abdominal pain. Genitourinary: Negative for dysuria. Musculoskeletal: Negative for back pain and neck pain. Skin: Negative for rash. Neurological: Negative for headaches. All other systems reviewed and are negative. Physical Exam BP 135/78 mmHg | Pulse 87 | Temp(Src) 36.9 C (98.5 F) (Tympanic) | Resp 16 | Ht 1.651 m (5' 5") | Wt 97.7 kg (215 lb 6.2 oz) | BMI 35.84 kg/m2 | SpO2 98% | LMP 07/25/2015 Physical Exam Constitutional: She is oriented to person, place, and time. She appears well-dev eloped and well-nourished. HENT: Head: Normocephalic and atraumatic. Right Ear: External ear normal. Left Ear: External ear normal. Mouth/Throat: Oropharynx is clear and moist. Eyes: Conjunctivae and EOM are normal. Pupils are equal, round, and reactive to light. Neck: Normal range of motion. Neck supple. Musculoskeletal: Slightly limited range of motion with dorsiflexion/plantar flexion of the right ankle, tender to palpation to the anterior aspect of the medial malleolus on the right ankle, lateral malleolar tenderness, tender to palpation to the dorsal mi dfoot as well as the base of the fifth metatarsal the right foot Neurological: She is alert and oriented to person, place, and time. Skin: Skin is warm and dry. Vitals reviewed. No results found for this or any previous visit (from the past 24 hour(s)). XR Ankle min 3 views right Final Result Impression: Normal right ankle. XR Foot min 3 views right Final Result IMPRESSION: 1. Intact right foot with possible mild osteopenia. ED Course Procedures MDM x-rays were negative for any acute fracture. The patient likely has a sprain of the right ankle as well as the right foot. She was placed in a air splint to st abilize her right ankle, and was also provided a postop shoe on the right. She w as given crutches to use only if needed for weightbearing as tolerated on the [facility] lower extremity. She was also given a work excuse for light activity but was not given any time off of work. She is given a prescription to be used if needed for pain control as well. She understood and agreed with the plan for discharge and follow-up. ED Clinical Impression SNOMED CT(R) 1. Ankle sprain, right, initial encounter SPRAIN OF ANKLE 2. Foot sprain, right, initial encounter SPRAIN OF FOOT Belén Comer Jr., MD 08/26/15 1457 documented in this encounter Plan of Treatment Not on filedocumented as of this encounter Procedures Comments Procedure Name Priority Date/Time Associated Diagnosis XR FOOT MIN 3 VIEWS RIGHT STAT 08/26/2015 12:18 PM CDT XR ANKLE MIN 3 VIEWS STAT 08/26/2015 RIGHT 12:18 PM CDT documented in this encounter Results * XR Foot min 3 views right (08/26/2015 12:18 PM CDT) Specimen Impressions Performed At IMPRESSION: JOSE 1. Intact right foot with possible mild osteopenia. Narrative Performed At Patient: JIGNESH GIVENS Sex#:Earnestine # 1980 Reilly#:[id number] Location:[facility]Accession#: [id number] Procedure Requested:[id number] XR FOOT MIN 3 VIEWS RIGHT Reason for Exam:fall, dorsal midfoot tenderness Exam Ordered:08/26/20151204 Check-in Date/Time:08/26/20151219 XR FOOT MIN 3 VIEWS RIGHT Date:08/26/2015 12:19 PM History:fall, dorsal midfoot tenderness, trauma, pain Exam Interpretation:[facility] Findings:No comparison exams. Bones appear mildly demineralized. Osseous structures and articulations appear intact without displaced fracture or destructive lesion. Soft tissues appear normal. Procedure Note Interface, Rad Results In - 08/26/2015 12:50 PM CDT Patient: BERNIE GIVENS Sex#: F # [id number] Reilly#: [id number] Location: [facility] Procedure Requested: [id number] XR FOOT MIN 3 VIEWS RIGHT Reason for Exam: fall, dorsal midfoot tenderness Exam Ordered: 08/26/2015 1204 Check-in Date/Time: 08/26/2015 1219 XR FOOT MIN 3 VIEWS RIGHT Date: 08/26/2015 12:19 PM History: fall, dorsal midfoot tenderness, trauma, pain Exam Interpretation: [facility] Findings: No comparison exams. Bones appear mildly demineralized. Osseous structures and articulations appear intact without displaced fracture or destructive lesion. Soft tissues appear normal. IMPRESSION: 1. Intact right foot with possible mild osteopenia. Performing Organization Address [facility] Phone Number MCKESCLARA * XR Ankle min 3 views right (08/26/2015 12:18 PM CDT) Specimen Impressions Performed At Impression: JOSE Normal right ankle. Narrative Performed At Patient: JIGNESH GIVENS Sex#:Earnestine # 1980 Reilly#:[id number] Location:[facility]-01Accession#: [id number] Procedure Requested:[id number] XR ANKLE MIN 3 VIEWS RIGHT Reason for Exam:right ankle pain post fall Exam Ordered:08/26/20151157 Check-in Date/Time:08/26/20151218 XR ANKLE MIN 3 VIEWS RIGHT Date:08/26/2015 12:18 PM History:right ankle pain post fall Findings: No comparison exams.Views of the ankle demonstrate normal alignment. No significant degenerative changes.No fractures or osseous lesions. Procedure Note Interface, Rad Results In - 08/26/2015 12:50 PM CDT Patient: BERNIE GIVENS Sex#: F # 1980 Reilly#: [id number] Location: [facility] Procedure Requested: [id number] XR ANKLE MIN 3 VIEWS RIGHT Reason for Exam: right ankle pain post fall Exam Ordered: 08/26/2015 1157 Check-in Date/Time: 08/26/2015 1218 XR ANKLE MIN 3 VIEWS RIGHT Date: 08/26/2015 12:18 PM History: right ankle pain post fall Findings: No comparison exams. Views of the ankle demonstrate normal alignment. No significant degenerative changes. No fractures or osseous lesions. Impression: Normal right ankle. Performing Organization Address [facility] Phone Number JOSE documented in this encounter Visit Diagnoses Diagnosis Ankle sprain, right, initial encounter - Primary Foot sprain, right, initial encounter documented in this encounter Administered Medications Action Date Dose Rate Site Medication Order MAR Action 08/26/2015 12:06 PM CDT 1 tablet oxyCODONE-acetaminophen (PERCOCET) 5-325 Given mg 1 tablet 1 tablet, Oral, Once, 5/21/16 at 1205, For 1 dose, Do not exceed 4 GM/DAY of acetaminophen. If 65 or older do not exceed 3 GM/DAY. If chronic alcoholic do not exceed 2 GM/DAY., documented in this encounter
--- OUTSIDE RECORDS SUMMARY | 2018-10-27 01:47 | XMS REPORT | Encounter Summary ---
Author Author [facility] Address Unknown Phone Unavailable Care Team Providers Care Battery Service Technician Name Role Phone PCP Unavailable Encounter Details Care Team Description Date Type Department Lamar Avalos MD [address] [place] [address] [phone] Decreased Movements, Affecting Management of Mother, Antepartum 01/06/2007 Hospital [facility] Encounter [address] [place] [address] Social History Date Tobacco Use Types Packs/Day Years Used Never Assessed Sex Assigned at Date Recorded Female Industry Job Start Date Occupation Not on file Not on file Not on file Travel End Travel History Travel Start No recent travel history available. documented as of this encounter Discharge Summaries * Lamar Avalos MD - 06/05/2013 12:11 PM GEOLOGICAL TECHNICIAN REPORT Name: BERNIE GIVENS MRN/Unit #: [id number] Attending Physician: LAMAR AVALOS MD Date of : 1980 DATE OF ADMISSION: 01/06/2007 DATE OF DISCHARGE: 01/06/2007 HOSPITAL COURSE: The patient is a 28-year-old 8, para 3-0-4-3 at 28 and 6 weeks dated. She presents due to her 1-year-old hitting her abdomen with his head at 16:00 today on 01/07/07. The patient states she had some cramping earlier and did not feel the baby move. The patient states on her way to the hospital she felt the baby move and her cramping has quit with the last time she felt it being more than one hour. The patient has had one visit at [facility] and one at [facility]. No records are available. PAST MEDICAL HISTORY: Significant for asthma. PAST SURGICAL HISTORY: Unknown. FAMILY HISTORY: Mom with hypertension. SOCIAL HISTORY: No tobacco, alcohol or drug use. MEDICATIONS: Albuterol. ALLERGIES: NO KNOWN DRUG ALLERGY. REVIEW OF SYSTEMS: As above, or otherwise negative. PHYSICAL EXAMINATION: VITALS: 102/53 blood pressure, pulse of 87, heart tones 130s with moderate variability and positive accelerations. Finklea is quiet. SVE is closed, thick and high. GENERAL: Alert and oriented x 3. CARDIAC: Regular rate and rhythm. No murmur appreciated. LUNGS: Clear to auscultation bilaterally. No rhonchi, wheezes or rales appreciated. ABDOMEN: Gravid and nontender. EXTREMITIES: Negative Priti's. No pretibial edema, clubbing or cyanosis noted. ASSESSMENT AND PLAN: Intrauterine at 28-6/7 weeks, status post abdominal trauma past six-hour window. heart tones reassuring. Finklea quiet. Cervix closed, thick and high. Discharge home with return precautions. Call for care appointment. Discussed the above with Dr. Radha Perez. Lamar Avalos MD Dictated By: Edilia Kong D.O. cc: OGICAL TECHNICIAN documented in this encounter Plan of Treatment Not on filedocumented as of this encounter Visit Diagnoses Diagnosis Decreased movements, affecting management of mother, antepartum documented in this encounter
--- OUTSIDE RECORDS SUMMARY | 2018-10-27 01:47 | XMS REPORT | Encounter Summary ---
Author Author [facility] Organization [facility] Address Unknown Phone Unavailable Care Team Providers Care Carbon Rod Inserter Name Role Phone PCP Unavailable Reason for Visit * Reason Comments Pain Pain right scapula/rib area at work, reached into overhead bin and felt pop. Then pain shot down right side. Encounter Details Care Team Description Date Type Department Rod Griffin MD [address], [place] [id number] Back strain, initial encounter (Primary Dx) 11/05/2015 Emergency [facility] [id number] [place] [address] Social History Date Tobacco Use Types Packs/Day [...] Signs Reading Time Taken Comments Vital Sign 116/71 11/05/2015 9:33 PM CDT Blood Pressure 74 11/05/2015 9:33 PM CDT Pulse 36.2 C (97.1 F) 11/05/2015 8:49 PM CDT Temperature 17 11/05/2015 9:33 PM CDT Respiratory Rate 99% 11/05/2015 9:33 PM CDT Oxygen Saturation - - Inhaled Oxygen Concentration 95.3 kg (210 lb) 11/05/2015 8:49 PM CDT Weight 172.7 cm (5' 8") 11/05/2015 8:49 PM CDT Height 31.93 11/05/2015 8:49 PM CDT Body Mass Index documented in this encounter Discharge Instructions * Instructions* Rod Griffin MD - 11/05/2015 Back Sprain or Strain You have injured the muscles (strain) or ligaments (sprain) around the spine. Th is may occur after a sudden forceful twisting or bending force (such as in a car accident), after a simple awkward movement, or after lifting something heavy wi th poor body positioning. In either case, muscle spasm is often present and adds to the pain. A back sprain or muscle strain usually gets better in 12 weeks. Unless you pierson d a forceful physical injury (for example, a car accident or fall), X-rays are u sually not ordered for the initial evaluation of a back sprain or strain. If clari n continues and does not respond to medical treatment, X-rays and other tests ma y be performed at a later time. Home care The following guidelines will help you care for your injury at home: You may need to stay in bed the first few days. But, as soon as possible, beg in sitting or walking to avoid problems with prolonged bed rest (muscle weakness , worsening back stiffness and pain, blood clots in the legs). When in bed, try to find a position of comfort. A firm mattress is best. Try lying flat on your back with pillows under your knees. You can also try lying on your side with your knees bent up towards your chest and a pillow between your knees. Avoid prolonged sitting. This puts more stress on the lower back than standin g or walking. During the first two days after injury, apply anice packto the painful ar ea for 20 minutes every 24 hours. This will reduce swelling and pain.Heat (hot shower, hot bath or heating pad) works well for muscle spasm. You can start with ice, then switch to heat after two days. Some patients feel best alternati ng ice and heat treatments. Use the one method that feels the best to you. You may use acetaminophen or ibuprofen to control pain, unless another pain m edicine was prescribed. If you have chronic liver or kidney disease or ever had a stomach ulcer or GI bleeding, talk with your doctor before using these medicin es. Be aware of safe lifting methods and do not lift anything over 15 pounds unti l all the pain is gone. Follow-up care Follow up with your doctor or this facility as advised. Physical therapy or furt her tests may be needed if symptoms worsen. If you had X-rays today, they didnt show any broken bones, breaks, or fractur es. Sometimes fractures dont show up on the first X-ray. Bruises and sprains can sometimes hurt as much as a fracture. These injuries can take time to heal c ompletely. If your symptoms dont improve or they get worse, talk with your do ctor. You may need a repeat X-ray. When to seek medical advice Call your health care provider right awayif any of these occur: Pain becomes worse or spreads to your arms or legs Weakness or numbness in one or both arms or legs Loss of bowel or bladder control Numbness in the groin or genital area [phone] [employer] [place] [address] [phone]. All rights reserved. This information is [...] as of this encounter ED Notes * Rod Griffin MD - 11/05/2015 9:01 PM CDT 11/05/2015 [facility] History Chief Complaint Patient presents with Pain Pain right scapula/rib area at work, reached into overhead bin and felt pop. T hen pain shot down right side. HPI 35 year-old white female presents approximately one hour after onset of clari n to the right side of her back. Patient describes a sharp severe pain to the ri ght side of her back she first noticed after reaching up above her head and tryi ng to pull a box off of a shelf this is a forced extension at her shoulders and at her elbows and pulling her shoulders back bilaterally. The patient denies tob acco usage history she does describe some mild shortness of breath but denies he moptysis, fever, or history of pneumothorax. Patient states pain is worsened wit h movement of her arm in almost any direction specifically raising arms up and p ulling shoulders back. Past Medical History Diagnosis Date Migraine Seizure one time post . Past Surgical History Procedure Laterality Date Appendectomy section Dental surgery History reviewed. No pertinent family history. Social History Substance Use Topics Smoking status: Never Smoker Smokeless tobacco: Never Used Alcohol use Yes Comment: occ. Review of Systems Constitutional: Negative for chills, diaphoresis and fever. HENT: Negative for drooling, ear pain, sinus pressure, sore throat and voice dain nge. Eyes: Negative for pain, redness and visual disturbance. Respiratory: Positive for shortness of breath. Negative for cough and chest tigh tness. Cardiovascular: Negative for chest pain, palpitations and leg swelling. Gastrointestinal: Negative for abdominal distention. Endocrine: Negative for cold intolerance, heat intolerance and polyuria. Genitourinary: Negative for difficulty urinating, dysuria, flank pain, hematuria and urgency. Musculoskeletal: Positive for back pain. Negative for arthralgias and neck pain. Skin: Negative for pallor. Allergic/Immunologic: Negative for immunocompromised state. Neurological: Negative for dizziness, syncope, weakness, numbness and headaches. Hematological: Negative for adenopathy. Does not bruise/bleed easily. Psychiatric/Behavioral: Negative for agitation and behavioral problems. All other systems reviewed and are negative. Physical Exam Visit Vitals BP 128/84 Pulse 94 Temp 36.2 C (97.1 F) Resp 18 Ht 1.727 m (5' 8") Wt 95.3 kg (210 lb) LMP 10/05/2015 SpO2 100% BMI 31.93 kg/m2 Physical Exam Constitutional: She is oriented to person, place, and time. She appears well-dev eloped and well-nourished. No distress. HENT: Head: Normocephalic and atraumatic. Nose: Nose normal. Mouth/Throat: No oropharyngeal exudate. Eyes: Conjunctivae and EOM are normal. Pupils are equal, round, and reactive to light. No scleral icterus. Neck: Normal range of motion. Neck supple. No JVD present. No tracheal deviation present. Cardiovascular: Normal rate, regular rhythm and intact distal pulses. Exam reve als no gallop and no friction rub. Murmur (2/6 systolic murmur) heard. Pulmonary/Chest: Effort normal and breath sounds normal. No respiratory distress . She has no wheezes. She has no rales. She exhibits no tenderness. Abdominal: Soft. Bowel sounds are normal. She exhibits no distension. There is n o tenderness. There is no rebound and no guarding. Musculoskeletal: Normal range of motion. She exhibits no edema or tenderness. Patient has pain with palpation over the rhomboid and infrascapular area there i s no subcutaneous air and her pain is exacerbated with extension of the shoulder s against resistance and abduction of her arms at the shoulders as well as again st resistance. Lymphadenopathy: She has no cervical adenopathy. Neurological: She is alert and oriented to person, place, and time. No cranial n erve deficit. Coordination normal. Skin: Skin is warm and dry. No rash noted. Psychiatric: She has a normal mood and affect. Her behavior is normal. Judgment normal. Nursing note and vitals reviewed. No results found for this or any previous visit (from the past 24 hour(s)). XR Chest single view frontal Final Result Impression: Reduced lung volumes with central pulmonary vascular crowding. No consolidation or pleural effusion. No pneumothorax. Normal heart size. Skeletal structures appear intact. Reading Site: [facility] I have reviewed all of the labs and radiology studies. ED Course ED Course There is no data filed. Procedures MDM pain is reproducible with active movement of her upper extremities there is no sign of pneumothorax, rib fracture or skin lesions. I believe this pain to be muscular in etiology we'll treat with anti-inflammatories and muscle relaxers and heat. ED Clinical Impression SNOMED CT(R) 1. Back strain, initial encounter STRAIN OF BACK MUSCLE Rod Griffin MD 11/05/152125 Rod Griffin MD 11/05/152133 documented in this encounter Plan of Treatment Not on filedocumented as of this encounter Procedures Comments Procedure Name Priority Date/Time Associated Diagnosis XR CHEST SINGLE VIEW STAT 11/05/2015 FRONTAL 9:11 PM CDT documented in this encounter Results * XR Chest single view frontal (11/05/2015 9:11 PM CDT) Specimen Impressions Performed At Impression: [facility] Reduced lung volumes with central pulmonary vascular crowding. No consolidation or pleural effusion. No pneumothorax. Normal heart size. Skeletal structures appear intact. Reading Site: [facility] Narrative Performed At Patient: JIGNESH GIVENS Sex#:Earnestine # [id number] Reilly#:[id number] Location:[facility] [place]-09Accession#: [id number] Procedure Requested:[id number] XR CHEST SINGLE VIEW FRONTAL Reason for Exam:Right-sided chest pain Exam Ordered: Exam Date/Time: Begin exam date/time: XR CHEST SINGLE VIEW FRONTAL Indication:Right-sided chest pain Exam Date: 11/05/2015 9:11 PM Procedure Note Interface, Rad Results In - 11/05/2015 9:24 PM CDT Patient: BERNIE GIVENS Sex#: F # [id number] Reilly#: [id number] Location: [facility] [place]09 Procedure Requested: [id number] XR CHEST SINGLE VIEW FRONTAL Reason for Exam: Right-sided chest pain Exam Ordered: 11/05/20152101 Exam Date/Time: 11/05/20152110 Begin exam date/time: 11/05/20152105 XR CHEST SINGLE VIEW FRONTAL Indication: Right-sided chest pain Exam Date: 11/05/2015 9:11 PM IMPRESSION Impression: Reduced lung volumes with central pulmonary vascular crowding. No consolidation or pleural effusion. No pneumothorax. Normal heart size. Skeletal structures appear intact. Reading Site: [facility] Performing Organization Address City/State/Zipcode Phone Number [email or web address] documented in this encounter Visit Diagnoses Diagnosis Back strain, initial encounter - Primary documented in this encounter Administered Medications Action Date Dose Rate Site Medication Order MAR Action 11/05/2015 9:06 PM CDT 1 tablet HYDROcodone-acetaminophen (NORCO) 5-325 Given mg per tablet 1 tablet 1 tablet, Oral, Once, 11/05/15 at 2103, For 1 dose, Do not exceed 4 GM/DAY of acetaminophen. If 65 or older do not exceed 3 GM/DAY. If chronic alcoholic do not exceed 2 GM/DAY., documented in this encounter
--- OUTSIDE RECORDS SUMMARY | 2018-10-27 01:48 | XMS REPORT ---
Author Author XU HELTONNYA [facility] Address [address] [place] [address] Care Team Providers Care Program Project Analyst Name Role Phone DANIE DARIAN Unavailable PROBLEMS Type Condition ICD9-CM Code [id number] Code Onset Dates Condition Status SNOMED Code Problem Affective disorder F39 Active 65734474 Problem Panic disorder F41.0 Active 859493055 Problem Anxiety state, unspecified F41.1 Active 198050300 Problem Low back pain M54.5 Active 496204319 Problem Generalized anxiety disorder F41.1 Active 38268168 Problem Chronic migraine without aura without status migrainosus, not intractable G43.709 Active 746383562 Problem Vaginal bleeding N93.9 Active 007044391 Problem Pain in right knee M25.561 Active 81969753 Problem Major depressive disorder, recurrent, moderate F33.1 Active 762447954 Problem Chondromalacia patellae, right knee M22.41 Active 98763439 Problem Panic attacks F41.0 Active 687246931 Problem Major depressive disorder, recurrent episode, moderate F33.1 Active [id number] ALLERGIES No Information ENCOUNTERS Encounter Location Date Diagnosis [facility] [id number], [place] [address] Oct, [facility] [id number] [place] [address] Sep, Low back strain, initial encounter S39.012A [facility] [id number] [place] [address] Sep, [facility] [id number] [place] [address] August, Major depressive disorder, recurrent, moderate F33.1 and Generalized anxiety disorder F41.1 [facility] [id number] [place] [address] August, Major depressive disorder, recurrent, moderate F33.1 [facility] [id number], [place] [address] August, Major depressive disorder, recurrent, moderate F33.1 and Generalized anxiety disorder F41.1 [facility] [address] [place] [address] August, Vaginal bleeding N93.9 [address].2 [facility] [id number] [place] [address] August, [place] [id number] [place] [address] August, Major depressive disorder, recurrent, moderate F33.1 and Generalized anxiety disorder F41.[address] [address] August, Vaginal bleeding N93.9 [address] R10.2 [facility] [id number] [place] [address] August, [facility] [id number] [place] [address] August, Pelvic pain R10.2 and Major depressive disorder, recurrent, moderate F33.1 [facility] [address] [place] [address] Jul, Vaginal bleeding N93.9 [facility] [id number] [place] [address] May, Major depressive disorder, recurrent episode, moderate F33.1 ; Generalized anxiety disorder F41.1 and Panic attacks F41.0 [facility] [address] [place] [address] 04 May, 2018 Sore throat J02.9 ; Acute bronchitis, unspecified organism J20.9 and Tonsillitis with exudate J03.90 [facility] [id number] [place] [address] 04 May, 2018 [place] [id number] [place] [address] Jul, Right upper quadrant pain R10.11 and Nausea R11.0 [place] [id number] [place] [address] Jul, Right upper quadrant pain R10.11 and Left foot pain M79.672 [place] [address] [address] Jul, [place] [address] [address] Jun, Chondromalacia patellae, right knee M22.41 [place] [id number] [place] [address] 17 May, 2016 [place] [address] [address] 14 May, 2016 Pain in right knee M25.561 [place] [id number] [place] [address] 08 May, 2016 Major depressive disorder, recurrent, moderate F33.1 [place] [id number] [place] [address] 06 May, 2016 Anxiety state, unspecified F41.1 ; Major depressive disorder, recurrent, moderate F33.1 and High risk medications (not anticoagulants) long-term use Z79.899 [place] [id number] [place] [address] Apr, [place] [address] [address] Apr, Low back pain M54.5 ; Pain in right knee M25.561 and Chronic migraine without aura without status migrainosus, not intractable G43.709 [place] [id number] [place] [address] Apr, Affective disorder F39 and Panic disorder F41.0 [facility] [id number] [place] [address] 14 Jul, 2014 [facility] [id number] [place] [address] 13 Jul, 2014 [facility] [id number] [place] [address] 24 May, 2014 [facility] [id number] [place] [address] 24 May, 2014 [facility] [id number] [place] [address] 18 May, 2014 [facility] [id number] [place] [address] 18 May, 2014 [facility] [address] [place] [address] 13 May, 2014 [facility] [id number] [place] [address] 13 May, 2014 [facility] [id number] [place] [address] 10 May, 2014 [facility] [id number] [place] [address] 10 May, 2014 [facility] [id number] [place] [address] 30 Mar, 2014 [facility] [address] [address] Mar, [facility] [id number] [place] [address] Mar, [facility] [id number] [place] [address] Mar, [facility] [address], [place] [address] Mar, [facility] [place] [facility] [address] [id number] [place] [address] Mar, [facility] [place] [facility] [address] [id number] [place] [address] Mar, [facility] [place] [facility] [address] [id number] [place] [address] Mar, [facility] [place] [facility] [address] [id number] [place] [address] Mar, [facility] [place] [facility] [address] [id number] [place] [address] Mar, [facility] [place] [facility] [address] [id number] [place] [address] Mar, [facility] [place] [facility] [address] [id number] [place] [address] Mar, [facility] [place] [facility] [address] [id number] [place] [address] Feb, [facility] [place] [facility] [address] [id number] [place] [address] Feb, [facility] [place] [facility] [address] [id number] [place] [address] Feb, [facility] [place] [facility] [address] [id number] [place] [address] Feb, [facility] [place] [facility] [address] [id number] [place] [address] Feb, [facility] [place] [facility] [address] [id number] [place] [address] Feb, [facility] [place] [facility] [address] [id number] [place] [address] Feb, [facility] [place] [facility] [address] [id number] [place] [address] Feb, [facility] [place] [facility] [address] [id number] [place] [address] Feb, [facility] [place] [facility] [address] [id number] [place] [address] Feb, [facility] [place] [facility] [address] [id number] [place] [address] Feb, [facility] [place] [facility] [address] [id number] [place] [address] Feb, [facility] [place] [facility] [address] [id number] [place] [address] Jan, [facility] [place] [facility] [address] [id number] [place] [address] Jan, [facility] [place] [facility] [address] [id number] [place] [address] Jan, [facility] [place] [facility] [address] [id number] [place] [address] Jan, [facility] [place] [facility] [address] [id number] [place] [address] Jan, [facility] [place] [facility] [address] [id number] [place] [address] Jan, [facility] [place] [facility] [address] [id number] [place] [address] Jan, [facility] [place] [facility] [address] [id number], [place] [address] Jan, [facility] [place] [facility] [address] [id number], [place] [address] Jan, [facility] [place] [facility] [address] [id number] [place] [address] Jan, [facility] [place] [facility] [address] [id number], [place] [address] Jan, [facility] [place] [facility] [address] [id number], [place] [address] Jan, [facility] [place] [facility] [address] [id number] [place] [address] Jan, [facility] [place] [facility] [address] [id number] [place] [address] Jan, [facility] [place] [facility] [address] [id number] [place] [address] Dec, [facility] [place] [facility] [address] [id number] [place] [address] Dec, [facility] [place] [facility] [address] [id number] [place] [address] Dec, [facility] [place] [facility] [address] [id number] [place] [address] Dec, [facility] [place] [facility] [address] [id number] [place] [address] Dec, [facility] [place] [facility] [address] [id number] [place] [address] Dec, [facility] [place] [facility] [address] [id number] [place] [address] Nov, [facility] [place] [facility] [address] [id number] [place] [address] Nov, [facility] [place] [facility] [address] [id number] [place] [address] Nov, [facility] [place] [facility] [address] [id number] [place] [address] Nov, [facility] [place] [facility] [address] [id number] [place] [address] Nov, [facility] [place] [facility] [address] [id number] [place] [address] Nov, [facility] [place] [facility] [address] [id number] [place] [address] Nov, [facility] [place] [facility] [address] [id number] [place] [address] Oct, [facility] [place] [facility] [address] [id number] [place] [address] Oct, 2013 [facility] [place] [facility] [address] [id number] [place] [address] Oct, [facility] [place] [facility] [address] [id number] [place] [address] Oct, 2013 [facility] [place] [facility] [address] [id number] [place] [address] Oct, [facility] [place] [facility] [address] [id number] [place] [address] Oct, [facility] [place] [facility] [address] [id number] [place] [address] Oct, [facility] [place] [facility] [address] [id number] [place] [address] Oct, 2013 [facility] [place] [facility] [address] [id number] [place] [address] Oct, 2013 [facility] [place] [facility] [address] [id number] [place] [address] Oct, 2013 [facility] [place] [facility] [address] [id number] [place] [address] Oct, [facility] [place] [facility] [address] [id number] [place] [address] Oct, [facility] [place] [facility] [address] [id number] [place] [address] Oct, 2013 [facility] [place] [facility] [address] [id number] [place] [address] Oct, 2013 [facility] [place] [facility] [address] [id number] [place] [address] Oct, 2013 [facility] [place] [facility] [address] [id number] [place] [address] Oct, 2013 [facility] [place] [facility] [address] [id number] [place] [address] Oct, [facility] [place] [facility] [address] [id number] [place] [address] Oct, [facility] [place] [facility] [address] [id number] [place] [address] Oct, [facility] [place] [facility] [address] [id number] [place] [address] Sep, [facility] [place] [facility] [address] [id number] [place] [address] Sep, [facility] [place] [facility] [address] [id number] [place] [address] Sep, [facility] [place] [facility] [address] [id number] [place] [address] Sep, [facility] [place] [facility] [address] [id number] [place] [address] Sep, [facility] [place] [facility] [address] [id number] [place] [address] Sep, [facility] [place] [facility] [address] [id number] [place] [address] Sep, [facility] [place] [facility] [address] [id number] [place] [address] Sep, [facility] [place] [facility] [address] [id number] [place] [address] Sep, [facility] [place] [facility] [address] [id number] [place] [address] Sep, [facility] [place] [facility] [address] [id number] [place] [address] Sep, [facility] [place] [facility] [address] [id number] [place] [address] Sep, [facility] [place] [facility] [address] [id number] [place] [address] August, [facility] [place] [facility] [address] [id number] [place] [address] August, [facility] [place] [facility] [address] [id number] [place] [address] August, [facility] [place] [facility] [address] [id number] [place] [address] August, [facility] [place] [facility] [address] [id number] [place] [address] August, [facility] [place] [facility] [address] [id number] [place] [address] August, [facility] [place] [facility] [address] [id number] [place] [address] August, [facility] [place] [facility] [address] [id number] [place] [address] August, [facility] [place] [facility] [address] [id number] [place] [address] Jul, [facility] [place] [facility] [address] [id number] [place] [address] Jul, [facility] [place] [facility] [address] [id number] [place] [address] Jul, [facility] [place] [facility] [address] [id number] [place] [address] Jul, [facility] [place] [facility] [address] [id number] [place] [address] Jun, [facility] [place] [facility] [address] [id number] [place] [address] Jun, [facility] [place] [facility] [address] [id number] [place] [address] Jun, [facility] [place] [facility] [address] [id number] [place] [address] Jun, [facility] [place] [facility] [address] [id number] [place] [address] Jun, [facility] [place] [facility] [address] [id number] [place] [address] 17 Jun, 2013 [facility] [place] [facility] [address] [id number] [place] [address] 13 Jun, 2013 [facility] [place] [facility] [address] [id number] [place] [address] 13 Jun, 2013 [facility] [place] [facility] [address] [id number] [place] [address] 13 Jun, 2013 [facility] [place] [facility] [address] [id number] [place] [address] 13 Jun, 2013 [facility] [place] [facility] [address] [id number] [place] [address] 11 Jun, 2013 [facility] [place] [facility] [address] [id number] [place] [address] 11 Jun, 2013 [facility] [place] [facility] [address] [id number] [place] [address] 11 Jun, 2013 [facility] [place] [facility] [address] [id number] [place] [address] Jun, [facility] [place] [facility] [address] [id number] [place] [address] 11 Jun, 2013 [facility] [place] [facility] [address] [id number] [place] [address] Jun, [facility] [place] [facility] [address] [id number] [place] [address] 07 Jun, 2013 [facility] [place] [facility] [address] [id number] [place] [address] Jun, [facility] [place] [facility] [address] [id number] [place] [address] 06 Jun, 2013 [facility] [place] [facility] [address] [id number] [place] [address] 06 Jun, 2013 [facility] [place] [facility] [address] [id number] [place] [address] 06 Jun, 2013 [facility] [place] [facility] [address] [id number] [place] [address] Jun, [facility] [place] [facility] [address] [id number] [place] [address] Jun, [facility] [place] [facility] [address] [id number] [place] [address] Jun, [facility] [place] [facility] [address] [id number] [place] [address] May, [facility] [place] [facility] [address] [id number] [place] [address] May, [facility] [place] [facility] [address] [id number] [place] [address] May, [facility] [place] [facility] [address] [id number] [place] [address] May, [facility] [place] [facility] [address] [id number] [place] [address] May, [facility] [place] [facility] [address] [id number] [place] [address] May, [facility] [place] [facility] [address] [id number] [place] [address] May, [facility] [place] [facility] [address] [id number] [place] [address] May, [facility] [place] [facility] [address] [id number] [place] [address] May, [facility] [place] [facility] [address] [id number] [place] [address] Apr, [facility] [place] [facility] [address] [id number] [place] [address] Apr, [facility] [place] [facility] [address] [id number] [place] [address] Apr, [facility] [place] [facility] [address] [id number] [place] [address] Apr, [facility] [place] [facility] [address] [id number] [place] [address] 30 Mar, 2013 [facility] [place] [facility] [address] [id number] [place] [address] 30 Mar, 2013 [facility] [place] [facility] [address] [id number] [place] [address] 16 Mar, 2013 [facility] [place] [facility] [address] [id number] [place] [address] 16 Mar, 2013 [facility] [place] [facility] [address] [id number] [place] [address] Mar, [facility] [place] [facility] [address] [id number] [place] [address] Mar, [facility] [place] [facility] [address] [id number] [place] [address] 05 Mar, 2013 [facility] [place] [facility] [address] [id number] [place] [address] 05 Mar, 2013 [facility] [place] [facility] [address] [id number] [place] [address] 14 Feb, 2013 [facility] [place] [facility] [address] [id number], [place] [address] 14 Feb, 2013 [facility] [place] [facility] [address] [id number], [place] [address] 14 Feb, 2013 [facility] [place] [facility] [address] [id number] [place] [address] 14 Feb, 2013 [facility] [place] [facility] [address] [id number] [place] [address] 13 Feb, 2013 [facility] [place] [facility] [address] [id number] [place] [address] 13 Feb, 2013 [facility] [place] [facility] [address] [id number] [place] [address] 07 Feb, 2012 [facility] [place] [facility] [address] [id number] [place] [address] Feb, [facility] [place] [facility] [address] [id number] [place] [address] Feb, 2012 [facility] [place] [facility] [address] [id number] [place] [address] Feb, [facility] [place] [facility] [address] [id number] [place] [address] Feb, [facility] [place] [facility] [address] [id number] [place] [address] Jan, [facility] [place] [facility] [address] [id number] [place] [address] Jan, [facility] [place] [facility] [address] [id number] [place] [address] Jan, [facility] [place] [facility] [address] [id number] [place] [address] Jan, [facility] [place] [facility] [address] [id number] [place] [address] Jan, [facility] [place] [facility] [address] [id number] [place] [address] Jan, [facility] [place] [facility] [address] [id number] [place] [address] Jan, [facility] [place] [facility] [address] [id number], [place] [address] Jan, [facility] [place] [facility] [address] [id number] [place] [address] Jan, [facility] [place] [facility] [address] [id number] [place] [address] Jan, [facility] [place] [facility] [address] [id number], [place] [address] Dec, [facility] [place] [facility] [address] [id number] [place] [address] 27 Dec, 2012 [facility] [place] [facility] [address] [id number] [place] [address] 24 Dec, 2012 [facility] [place] [facility] [address] [id number] [place] [address] 19 Dec, 2012 [facility] [place] [facility] [address] [id number] [place] [address] 17 Dec, 2012 [facility] [place] [facility] [address] [id number] [place] [address] 16 Dec, 2012 [facility] [place] [facility] [address] [id number] [place] [address] 10 Dec, 2012 [facility] [place] [facility] [address] [id number] [place] [address] 27 Nov, 2012 [facility] [place] [facility] [address] [id number] [place] [address] 15 Nov, 2012 [facility] [place] [facility] [address] [id number] [place] [address] Oct, [facility] [place] [facility] [address] [id number] [place] [address] Oct, [facility] [place] [facility] [address] [id number] [place] [address] Oct, [facility] [place] [facility] [address] [id number] [place] [address] Oct, [facility] [place] [facility] [address] [id number] [place] [address] Sep, [facility] [place] [facility] [address] [id number] [place] [address] Sep, [facility] [place] [facility] [address] [id number] [place] [address] Sep, [facility] [place] [facility] [address] [id number] [place] [address] Sep, [facility] [address] [id number] [place] [address] August, [facility] [address] [id number] [place] [address] August, [facility] [address] [id number] [place] [address] August, [facility] [place] [facility] [address] [id number] [place] [address] August, [facility] [address] [id number] [place] [address] August, [facility] [address] [id number] [place] [address] August, [facility] [address] [id number] [place] [address] Jul, [facility] [place] [facility] [address] [id number] [place] [address] Jul, [facility] [address] [id number] [place] [address] May, [facility] [place] [facility] [address] [id number] [place] [address] Apr, [facility] [address] [id number], [place] [address] Jan, [facility] [place] [facility] [address] [id number], [place] [address] Jan, [facility] [place] [facility] [address] [id number] [place] [address] 29 Dec, 2011 [facility] [place] [facility] [address] [id number] [place] [address] 24 Dec, 2011 [facility] [place] [facility] [address] [id number] [place] [address] Dec, [facility] [place] [facility] [address] [id number] [place] [address] Nov, [facility] [address] [id number] [place] [address] Nov, [facility] [place] [facility] [address] [id number] [place] [address] Nov, [facility] [address] [id number] [place] [address] Nov, [facility] [place] [facility] [address] [id number] [place] [address] Nov, [facility] [address] [id number] [place] [address] Oct, [facility] [address] [id number] [place] [address] Oct, [facility] [address] [id number] [place] [address] Oct, [facility] [address] [id number] [place] [address] Oct, [facility] [address] [id number] [place] [address] Oct, [facility] [address] [id number] [place] [address] Sep, [facility] [place] [facility] [address] [id number] [place] [address] Sep, [facility] [address] [id number] [place] [address] August, [facility] [place] [facility] [address] [id number] [place] [address] August, [facility] [place] [facility] [address] [id number] [place] [address] August, [facility] [address] [id number] [place] [address] August, [facility] [id number] [address] August, [facility] [id number] [address] Jul, [facility] [address] [id number] [address] Jul, [facility] [id number] [address] Jul, [facility] [id number] [address] Jun, [facility] [id number] [address] Jun, [facility] [id number] [address] Jun, [facility] [id number] [address] 14 Jun, [address] [facility] [id number] [address] Jun, [facility] [address] [id number], [place] [address] Jun, [facility] [id number], [place] [address] Jun, IMMUNIZATIONS No Known Immunizations SOCIAL HISTORY Never Assessed REASON FOR VISIT PLAN OF CARE VITAL SIGNS Height 67 in 2014-05-20 Weight 219.12 lbs 2014-05-20 Temperature 97.6 degrees Fahrenheit 2014-05-20 Heart Rate 94 bpm 2014-05-20 Respiratory Rate 22 2014-05-20 Blood pressure systolic 142 mmHg 2014-05-20 Blood pressure diastolic 96 mmHg 2014-05-20 MEDICATIONS Unknown Medications RESULTS No Results PROCEDURES [...]
--- OUTSIDE RECORDS SUMMARY | 2018-10-27 01:57 | XMS REPORT | Continuity of Care Document ---
Author Organization Unknown Address Unknown Allergies Active Description Code Type Severity Reaction Onset Reported/Identified Relationship to Patient Clinical Status Yes No Known Drug Allergies [id number] Drug Allergy Unknown N/A 07/27/2010 Yes doxepin [...] BALTA PEDRAZA MD 784.0 headache 06/17/2011 [facility] PRICING SUPERVISOR, MISA 285.9 ANEMIA 06/17/2011 [facility] PRICING SUPERVISOR, MISA 780.79 FATIGUE 06/17/2011 VA PRICING SUPERVISOR, MISA 783.1 recent weight gain (___ lbs) [reported] 06/17/2011 VA PRICING SUPERVISOR, MISA 784.0 headache 06/17/2011 VA PRICING SUPERVISOR, MISA 285.9 ANEMIA 06/17/2011 VA PRICING SUPERVISOR, MISA 780.79 FATIGUE 06/17/2011 VA PRICING SUPERVISOR, MISA 783.1 recent weight gain (___ lbs) [reported] 06/17/2011 VA PRICING SUPERVISOR, MISA 784.0 headache 06/17/2011 WHITE DDSJEREMIE 285.9 ANEMIA 06/17/2011 WHITE DDS, JEREMIE D 780.79 FATIGUE 06/17/2011 WHITE DDS, JEREMIE D 783.1 recent weight gain (___ lbs) [reported] 06/17/2011 WHITE DDS, JEREMIE D 784.0 headache 06/17/2011 VA PRICING SUPERVISOR, MISA 285.9 ANEMIA 06/17/2011 VA PRICING SUPERVISOR, MISA 780.79 FATIGUE 06/17/2011 VA PRICING SUPERVISOR, MISA 783.1 recent weight gain (___ lbs) [reported] 06/17/2011 VA PRICING SUPERVISOR, MISA 784.0 headache 06/17/2011 VA PRICING SUPERVISOR, MISA 285.9 ANEMIA 06/17/2011 VA PRICING SUPERVISOR, MISA 780.79 FATIGUE 06/17/2011 [facility] PRICING SUPERVISOR, MISA 783.1 recent weight gain (___ lbs) [reported] 06/17/2011 VA PRICING SUPERVISOR, MISA 784.0 headache 06/17/2011 MADL PRICING SUPERVISOR, DARIAN L 285.9 ANEMIA 06/17/2011 MADL PRICING SUPERVISOR, DARIAN L 780.79 FATIGUE 06/17/2011 MADL PRICING SUPERVISOR, DARIAN L 783.1 recent weight gain (___ lbs) [reported] 06/17/2011 MADL PRICING SUPERVISOR, DARIAN L 784.0 headache 06/17/2011 LEONARDO DO, NORA K 285.9 ANEMIA 06/17/2011 LEONARDO DO, NORA K 780.79 FATIGUE 06/17/2011 LEONARDO DO, NORA K 783.1 recent weight gain (___ lbs) [reported] 06/17/2011 LEONARDO DO, NOAR K 784.0 headache 06/17/2011 LEONARDO DO, NORA [...] LEONARDO DO K 784.0 headache 06/17/2011 [facility] PRICING SUPERVISOR, MISA 285.9 ANEMIA 06/17/2011 VA PRICING SUPERVISOR, MISA 780.79 FATIGUE 06/17/2011 VA PRICING SUPERVISOR, MISA 783.1 recent weight gain (___ lbs) [reported] 06/17/2011 VA PRICING SUPERVISOR, MISA 784.0 headache 06/17/2011 MADL PRICING SUPERVISOR, DARIAN L 285.9 ANEMIA 06/17/2011 MADL PRICING SUPERVISOR, DARIAN L 780.79 FATIGUE 06/17/2011 MADL PRICING SUPERVISOR, DARIAN L 783.1 recent weight gain (___ lbs) [reported] 06/17/2011 MADL PRICING SUPERVISOR, DARIAN L 784.0 headache 06/17/2011 JESSICA CABRERA PHD 285.9 ANEMIA 06/17/2011 JESSICA CABRERA PHD 780.79 FATIGUE 06/17/2011 JESSICA CABRERA PHD 783.1 recent weight gain (___ lbs) [reported] 06/17/2011 JESSICA CABRERA PHD 784.0 headache 06/17/2011 MADL PRICING SUPERVISOR, DARIAN L 285.9 ANEMIA 06/17/2011 MADL PRICING SUPERVISOR, DARIAN L 780.79 FATIGUE 06/17/2011 MADL PRICING SUPERVISOR, DARIAN L 783.1 recent weight gain (___ lbs) [reported] 06/17/2011 MADL PRICING SUPERVISOR, DARIAN L 784.0 headache 06/17/2011 [facility] PRICING SUPERVISOR, MISA 285.9 ANEMIA 06/17/2011 VA PRICING SUPERVISOR, MISA 780.79 FATIGUE 06/17/2011 VA PRICING SUPERVISOR, MISA 783.1 recent weight gain (___ lbs) [reported] 06/17/2011 VA PRICING SUPERVISOR, MISA 784.0 headache 06/17/2011 JESSICA CABRERA PHD 285.9 ANEMIA 06/17/2011 JESSICA CABRERA PHD 780.79 FATIGUE 06/17/2011 JESSICA CABRERA PHD 783.1 recent weight gain (___ lbs) [reported] 06/17/2011 RICK ALBERTO JESSICA A 784.0 headache 06/17/2011 VA PRICING SUPERVISOR, MISA 285.9 ANEMIA 06/17/2011 VA PRICING SUPERVISOR, MISA 780.79 FATIGUE 06/17/2011 VA PRICING SUPERVISOR, MISA 783.1 recent weight gain (___ lbs) [reported] 06/17/2011 VA PRICING SUPERVISOR, MISA 784.0 headache 06/17/2011 MADL PRICING SUPERVISOR, DARIAN L 285.9 ANEMIA 06/17/2011 MADL PRICING SUPERVISOR, DARIAN L 780.79 FATIGUE 06/17/2011 MADL PRICING SUPERVISOR, DARIAN L 783.1 recent weight gain (___ lbs) [reported] 06/17/2011 MADL PRICING SUPERVISOR, DARIAN L 784.0 headache 06/17/2011 FLOYD PRICING SUPERVISOR, ANGEL R 285.9 ANEMIA 06/17/2011 FLOYD PRICING SUPERVISOR, ANGEL R 780.79 FATIGUE 06/17/2011 FLOYD PRICING SUPERVISOR, ANGEL R 783.1 recent weight gain (___ lbs) [reported] 06/17/2011 FLOYD PRICING SUPERVISOR, ANGEL R 784.0 headache 06/17/2011 MADL PRICING SUPERVISOR, DARIAN L 285.9 ANEMIA 06/17/2011 MADL PRICING SUPERVISOR, DARIAN L 780.79 FATIGUE 06/17/2011 MADL PRICING SUPERVISOR, DARIAN L 783.1 recent weight gain (___ lbs) [reported] 06/17/2011 MADL PRICING SUPERVISOR, DARIAN L 784.0 headache 06/17/2011 VA PRICING SUPERVISOR, MISA 285.9 ANEMIA 06/17/2011 VA PRICING SUPERVISOR, MISA 780.79 FATIGUE 06/17/2011 VA PRICING SUPERVISOR, MISA 783.1 recent weight gain (___ lbs) [reported] 06/17/2011 VA PRICING SUPERVISOR, MISA 784.0 headache 06/17/2011 MADL PRICING SUPERVISOR, DARIAN L 285.9 ANEMIA 06/17/2011 MADL PRICING SUPERVISOR, DARIAN L 780.79 FATIGUE 06/17/2011 MADL PRICING SUPERVISOR, DARIAN L 783.1 recent weight gain (___ lbs) [reported] 06/17/2011 DARIAN HELTON APRN 784.0 headache 06/17/2011 VA PRICING SUPERVISOR, MISA 285.9 ANEMIA 06/17/2011 VABUD RIVERAN, MISA [...] 296.32 MO DEPRESSIVE RECURRENT MODERATE 06/21/2011 VA PRICING SUPERVISOR, MISA 296.32 MO DEPRESSIVE RECURRENT MODERATE 06/21/2011 VA PRICING SUPERVISOR, MISA 296.32 MO DEPRESSIVE RECURRENT MODERATE 06/21/2011 WHITE DDS, JEREMIE Pina 296.32 MO DEPRESSIVE RECURRENT MODERATE 06/21/2011 VA PRICING SUPERVISOR, MISA 296.32 MO DEPRESSIVE RECURRENT MODERATE 06/21/2011 VA PRICING SUPERVISOR, MSIA 296.32 MO DEPRESSIVE RECURRENT MODERATE 06/21/2011 MADL PRICING SUPERVISOR, DARIAN L 296.32 MO DEPRESSIVE RECURRENT MODERATE 06/21/2011 LEONARDO DO NORA K 296.32 MO DEPRESSIVE RECURRENT MODERATE 06/21/2011 LEONARDO DO, NORA K 296.32 MO DEPRESSIVE RECURRENT MODERATE 06/21/2011 LEONARDO DO NORA K 296.32 MO DEPRESSIVE RECURRENT MODERATE 06/21/2011 VA PRICING SUPERVISOR MISA 296.32 MO DEPRESSIVE RECURRENT MODERATE 06/21/2011 MADL PRICING SUPERVISOR, DARIAN L 296.32 MO DEPRESSIVE RECURRENT MODERATE 06/21/2011 RICK ALBERTO, JESSICA Sabillon 296.32 MO DEPRESSIVE RECURRENT MODERATE 06/21/2011 MADL PRICING SUPERVISOR, DARIAN L 296.32 MO DEPRESSIVE RECURRENT MODERATE 06/21/2011 VA PRICING SUPERVISOR MISA 296.32 MO DEPRESSIVE RECURRENT MODERATE 06/21/2011 RICK ALBERTO, JESSICA Sabillon 296.32 MO DEPRESSIVE RECURRENT MODERATE 06/21/2011 VA PRICING SUPERVISOR MISA 296.32 MO DEPRESSIVE RECURRENT MODERATE 06/21/2011 MADL PRICING SUPERVISOR, DARIAN L 296.32 MO DEPRESSIVE RECURRENT MODERATE 06/21/2011 FLOYD COOPER ANGEL R 296.32 MO DEPRESSIVE RECURRENT MODERATE 06/21/2011 MADL PRICING SUPERVISOR, DARIAN L 296.32 MO DEPRESSIVE RECURRENT MODERATE 06/21/2011 [facility] PRICING SUPERVISOR MISA 296.32 MO DEPRESSIVE RECURRENT MODERATE 06/21/2011 MADL PRICING SUPERVISOR, DARIAN L 296.32 MO DEPRESSIVE RECURRENT MODERATE 06/21/2011 VA PRICING SUPERVISOR, MISA 296.32 MO DEPRESSIVE RECURRENT MODERATE 06/21/2011 [...] UNSPECIFIED SITE OF ANKLE SPRAIN 07/02/2011 VA PRICING SUPERVISOR, MISA 845.00 UNSPECIFIED SITE OF ANKLE SPRAIN 07/02/2011 VA PRICING SUPERVISOR, MISA 845.00 UNSPECIFIED SITE OF ANKLE SPRAIN 07/02/2011 JEREMIE ALEX DDS 845.00 UNSPECIFIED SITE OF ANKLE SPRAIN 07/02/2011 VA PRICING SUPERVISOR, MISA 845.00 UNSPECIFIED SITE OF ANKLE SPRAIN 07/02/2011 VA PRICING SUPERVISOR, MISA 845.00 UNSPECIFIED SITE OF ANKLE SPRAIN 07/02/2011 MADL PRICING SUPERVISOR, DARIAN L 845.00 UNSPECIFIED SITE OF ANKLE SPRAIN 07/02/2011 LEONARDO DO NORA K 845.00 UNSPECIFIED SITE OF ANKLE SPRAIN 07/02/2011 LEONARDO DO NORA K 845.00 UNSPECIFIED SITE OF ANKLE SPRAIN 07/02/2011 LEONARDO DO NORA K 845.00 UNSPECIFIED SITE OF ANKLE SPRAIN 07/02/2011 VA PRICING SUPERVISOR, MISA 845.00 UNSPECIFIED SITE OF ANKLE SPRAIN 07/02/2011 MADL PRICING SUPERVISOR, DARIAN L 845.00 UNSPECIFIED SITE OF ANKLE SPRAIN 07/02/2011 RICK ALBERTO, JESSICA Sabillon 845.00 UNSPECIFIED SITE OF ANKLE SPRAIN 07/02/2011 MADL PRICING SUPERVISOR, DARIAN L 845.00 UNSPECIFIED SITE OF ANKLE SPRAIN 07/02/2011 VA PRICING SUPERVISOR, MISA 845.00 UNSPECIFIED SITE OF ANKLE SPRAIN 07/02/2011 RICK ALBERTO, JESSICA Sabillon 845.00 UNSPECIFIED SITE OF ANKLE SPRAIN 07/02/2011 VA PRICING SUPERVISOR, MISA 845.00 UNSPECIFIED SITE OF ANKLE SPRAIN 07/02/2011 MADL PRICING SUPERVISOR DARIAN L 845.00 UNSPECIFIED SITE OF ANKLE SPRAIN 07/02/2011 ANGEL BARRIENTOS APRN 845.00 UNSPECIFIED SITE OF ANKLE SPRAIN 07/02/2011 MADL PRICING SUPERVISOR, DARIAN L 845.00 UNSPECIFIED SITE OF ANKLE [...] MD 300.00 ANXIETY STATE UNSPECIFIED 07/11/2011 VA PRICING SUPERVISOR, MISA 300.00 ANXIETY STATE UNSPECIFIED 07/11/2011 VA PRICING SUPERVISOR, MISA 300.00 ANXIETY STATE UNSPECIFIED 07/11/2011 ISAI DDS, JEREMIE Pina 300.00 ANXIETY STATE UNSPECIFIED 07/11/2011 VA PRICING SUPERVISOR, MISA 300.00 ANXIETY STATE UNSPECIFIED 07/11/2011 VA PRICING SUPERVISOR, MISA 300.00 ANXIETY STATE UNSPECIFIED 07/11/2011 MADL PRICING SUPERVISOR, DARIAN L 300.00 ANXIETY STATE UNSPECIFIED 07/11/2011 LEONARDO DO, NORA K 300.00 ANXIETY STATE UNSPECIFIED 07/11/2011 LEONARDO DO, NORA K 300.00 ANXIETY STATE UNSPECIFIED 07/11/2011 LEONARDO DO, NORA K 300.00 ANXIETY STATE UNSPECIFIED 07/11/2011 VA PRICING SUPERVISOR, MISA 300.00 ANXIETY STATE UNSPECIFIED 07/11/2011 MADL PRICING SUPERVISOR, DARIAN L 300.00 ANXIETY STATE UNSPECIFIED 07/11/2011 RICK ALBERTO, JESSICA Sabillon 300.00 ANXIETY STATE UNSPECIFIED 07/11/2011 MADL PRICING SUPERVISOR, DARIAN L 300.00 ANXIETY STATE UNSPECIFIED 07/11/2011 VA PRICING SUPERVISOR, MISA 300.00 ANXIETY STATE UNSPECIFIED 07/11/2011 RICK ALBERTO, JESSICA Sabillon 300.00 ANXIETY STATE UNSPECIFIED 07/11/2011 VA PRICING SUPERVISOR, MISA 300.00 ANXIETY STATE UNSPECIFIED 07/11/2011 MADL PRICING SUPERVISOR, DARIAN L 300.00 ANXIETY STATE UNSPECIFIED 07/11/2011 FLOYD PRICING SUPERVISOR, ANGEL R 300.00 ANXIETY STATE UNSPECIFIED 07/11/2011 MADL PRICING SUPERVISOR, DARIAN L 300.00 ANXIETY STATE UNSPECIFIED 07/11/2011 VA PRICING SUPERVISOR, MISA 300.00 ANXIETY STATE UNSPECIFIED 07/11/2011 MADL PRICING SUPERVISOR, DARIAN L 300.00 ANXIETY STATE UNSPECIFIED 07/11/2011 VA PRICING SUPERVISOR, MISA 300.00 ANXIETY STATE UNSPECIFIED 07/11/2011 300.00 [...] MISA 728.71 PLANTAR FASCIAL FIBROMATOSIS 07/18/2011 VA PRICING SUPERVISOR, MISA 728.71 PLANTAR FASCIAL FIBROMATOSIS 07/18/2011 EVAL NATHALY COOPERWNYA L 728.71 PLANTAR FASCIAL FIBROMATOSIS 07/18/2011 LEONARDO TREVOR BOATENGA K 728.71 PLANTAR FASCIAL FIBROMATOSIS 07/18/2011 LEONARDO DOTREVORA K 728.71 PLANTAR FASCIAL FIBROMATOSIS 07/18/2011 LEONARDO DOTREVORA K 728.71 PLANTAR FASCIAL FIBROMATOSIS 07/18/2011 VA PRICING SUPERVISOR, MIAS 728.71 PLANTAR FASCIAL FIBROMATOSIS 07/18/2011 RAMON HELTON APRNA L 728.71 PLANTAR FASCIAL FIBROMATOSIS 07/18/2011 RICK ALBERTO, JESSICA Sabillon 728.71 PLANTAR FASCIAL FIBROMATOSIS 07/18/2011 NATHALY HELTON APRNWNYA L 728.71 PLANTAR FASCIAL FIBROMATOSIS 07/18/2011 VA KENNETH MISA 728.71 PLANTAR FASCIAL FIBROMATOSIS 07/18/2011 RICK ALBERTO, JESSICA A 728.71 PLANTAR FASCIAL FIBROMATOSIS 07/18/2011 VA PRICING SUPERVISOR, MISA 728.71 PLANTAR FASCIAL FIBROMATOSIS 07/18/2011 NATHALY HELTON APRNWNYA L 728.71 PLANTAR FASCIAL FIBROMATOSIS 07/18/2011 ANGEL BARRIENTOS APRN 728.71 PLANTAR FASCIAL FIBROMATOSIS 07/18/2011 EVAL NATHALY COOPERWNYA L 728.71 PLANTAR FASCIAL FIBROMATOSIS 07/18/2011 VA KENNETH MISA 728.71 PLANTAR FASCIAL FIBROMATOSIS 07/18/2011 EVAL KENNETH DARIAN L 728.71 PLANTAR FASCIAL FIBROMATOSIS 07/18/2011 VA PRICING SUPERVISOR, MISA 728.71 PLANTAR FASCIAL FIBROMATOSIS 07/18/2011 728.71 [...] RECURRENT 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 BEHAVIOR 07/29/2011 VA PRICING SUPERVISOR, MISA 300.02 AN GEN ANXIETY 07/29/2011 MADL PRICING SUPERVISOR, DARIAN L 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 07/29/2011 MADL PRICING SUPERVISOR, DARIAN L 300.02 AN GEN ANXIETY 07/29/2011 [...] K 300.02 AN GEN ANXIETY 07/29/2011 VA PRICING SUPERVISOR, MISA 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 07/29/2011 VA PRICING SUPERVISOR, MISA 300.02 AN GEN ANXIETY 07/29/2011 MADL PRICING SUPERVISOR, DARIAN L 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 07/29/2011 MADL PRICING SUPERVISOR, DARIAN L 300.02 AN GEN ANXIETY 07/29/2011 RICK PHD, JESSICA Sabillon 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 07/29/2011 RICK PHD, JESSICA A 300.02 AN GEN ANXIETY 07/29/2011 MADL PRICING SUPERVISOR, DARIAN L 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 07/29/2011 MADL PRICING SUPERVISOR, DARIAN L 300.02 AN GEN ANXIETY 07/29/2011 VA PRICING SUPERVISOR MISA 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 07/29/2011 VA PRICING SUPERVISOR, MISA 300.02 AN GEN ANXIETY 07/29/2011 RICK PHD, JESSICA A 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 07/29/2011 RICK PHD, JESSICA A 300.02 AN GEN ANXIETY 07/29/2011 VA PRICING SUPERVISOR, MISA 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 07/29/2011 VA PRICING SUPERVISOR MISA 300.02 AN GEN ANXIETY 07/29/2011 MADL PRICING SUPERVISOR, DARIAN L 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 RECURRENT SEVERE [...] [place] APRN 724.2 BACK PAIN, LOWER 08/26/2011 [facility] J[facility] A 462 Ph[facility]itis Acute [facility]/26[facility] 724.2 BACK PAIN, LOWER 08/26/2011 [facility] JESSICA A 462 Pharyngitis Acute 08/26/2011 [facility], JESSICA A 724.2 BACK PAIN, LOWER 08/26/2011 [facility] JESSICA A 462 Pharyngitis Acute 08/26/2011 [facility] JESSICA A 724.2 BACK PAIN, LOWER 08/26/2011 BRIANDA [place] APRN 462 Pharyngitis Acute 08/26/2011 BRIANDA [place] APRN 724.2 BACK PAIN, LOWER 08/26/2011 [facility], JESSICA A 462 Pharyngitis Acute 08/26/2011 [facility], JESSICA A 724.2 BACK PAIN, LOWER 08/26/2011 VALERIANO SEYMOUR, DOMINIC Iverson 462 Pharyngitis Acute 08/26/2011 VALERIANO SEYMOUR, DOMINIC Iverson 724.2 BACK PAIN, LOWER 08/26/2011 VALERIANO SEYMOUR, DOMINIC M 462 Pharyngitis Acute 08/26/2011 VALERIANO SEYMOUR, DOMINIC Iverson 724.2 lower back pain 08/26/2011 BOERAVI PHD, JESSIAC A 462 Pharyngitis Acute 08/26/2011 [facility], JESSICA A 724.2 lower back [...] MD 724.2 lower back pain 08/26/2011 VA PRICING SUPERVISOR, MISA 462 Pharyngitis Acute 08/26/2011 VA PRICING SUPERVISOR, MISA 724.2 lower back pain 08/26/2011 VA PRICING SUPERVISOR, MISA 462 Pharyngitis Acute 08/26/2011 VA PRICING SUPERVISOR, MISA 724.2 lower back pain 08/26/2011 WHITE DDS, JEREMIE D 462 Pharyngitis Acute 08/26/2011 WHITE DDS, JEREMIE D 724.2 lower back pain 08/26/2011 VA PRICING SUPERVISOR, MISA 462 Pharyngitis Acute 08/26/2011 VA PRICING SUPERVISOR, MISA 724.2 lower back pain 08/26/2011 VA PRICING SUPERVISOR, MISA 462 Pharyngitis Acute 08/26/2011 VA PRICING SUPERVISOR, MISA 724.2 lower back pain 08/26/2011 MADL PRICING SUPERVISOR, DARIAN L 462 Pharyngitis Acute 08/26/2011 MADL PRICING SUPERVISOR, DARIAN L 724.2 lower back pain 08/26/2011 LEONARDO DO, NORA K 462 Pharyngitis Acute 08/26/2011 LEONARDO DO, NORA K 724.2 lower back pain 08/26/2011 LEONARDO DO, NORA K 462 Pharyngitis Acute 08/26/2011 LEONARDO DO, NORA K 724.2 lower back pain 08/26/2011 LEONARDO DO, NORA K 462 Pharyngitis Acute 08/26/2011 LEONARDO DO, NORA K 724.2 lower back pain 08/26/2011 VA PRICING SUPERVISOR, MISA 462 Pharyngitis Acute 08/26/2011 VA PRICING SUPERVISOR, MISA 724.2 lower back pain 08/26/2011 MADL PRICING SUPERVISOR, DARIAN L 462 Pharyngitis Acute 08/26/2011 MADL PRICING SUPERVISOR, DARIAN L 724.2 lower back pain 08/26/2011 RICK PHD, JESSICA A 462 Pharyngitis Acute 08/26/2011 RICK PHD, JESSICA A 724.2 lower back pain 08/26/2011 MADL PRICING SUPERVISOR, DARIAN L 462 Pharyngitis Acute 08/26/2011 MADL PRICING SUPERVISOR, DARIAN L 724.2 lower back pain 08/26/2011 VA PRICING SUPERVISOR, MISA 462 Pharyngitis Acute 08/26/2011 VA PRICING SUPERVISOR, MISA 724.2 lower back pain 08/26/2011 RICK PHD, JESSICA A 462 Pharyngitis Acute 08/26/2011 RICK PHD, JESSICA A 724.2 lower back pain 08/26/2011 VA PRICING SUPERVISOR, MISA 462 Pharyngitis Acute 08/26/2011 VA PRICING SUPERVISOR, MISA 724.2 lower back pain 08/26/2011 MADL PRICING SUPERVISOR, DARIAN L 462 Pharyngitis Acute 08/26/2011 MADL PRICING SUPERVISOR, DARIAN L 724.2 lower back pain 08/26/2011 FLOYD PRICING SUPERVISOR, ANGEL R 462 Pharyngitis Acute 08/26/2011 FLOYD PRICING SUPERVISOR, ANGEL R 724.2 lower back pain 08/26/2011 MADL PRICING SUPERVISOR, DARIAN L 462 Pharyngitis Acute 08/26/2011 MADL PRICING SUPERVISOR, DARIAN L 724.2 lower back pain 08/26/2011 VA PRICING SUPERVISOR, MISA 462 Pharyngitis Acute 08/26/2011 VA PRICING SUPERVISOR, MISA 724.2 lower back pain 08/26/2011 MADL PRICING SUPERVISOR, DARIAN L 462 Pharyngitis Acute 08/26/2011 MADL PRICING SUPERVISOR, DARIAN L 724.2 lower back pain 08/26/2011 VA PRICING SUPERVISOR, MISA 462 Pharyngitis Acute 08/26/2011 VA PRICING SUPERVISOR, MISA 724.2 lower back pain 08/26/2011 462 [...] MD 296.89 MO BIPOLAR II 08/28/2011 VA PRICING SUPERVISOR, MISA 296.89 MO BIPOLAR II 08/28/2011 VA PRICING SUPERVISOR, MISA 296.89 MO BIPOLAR II 08/28/2011 JEREMIE ALEX DDS 296.89 MO BIPOLAR II 08/28/2011 VA PRICING SUPERVISOR, MISA 296.89 MO BIPOLAR II 08/28/2011 VA PRICING SUPERVISOR, MISA 296.89 MO BIPOLAR II 08/28/2011 DARIAN HELTON APRN 296.89 MO BIPOLAR II 08/28/2011 LEONARDO DO NORA K 296.89 MO BIPOLAR II 08/28/2011 LEONARDO DO NORA K 296.89 MO BIPOLAR II 08/28/2011 LEONARDO DO NORA K 296.89 MO BIPOLAR II 08/28/2011 VA COOPER MISA 296.89 MO BIPOLAR II 08/28/2011 MADL PRICING SUPERVISOR, DARIAN L 296.89 MO BIPOLAR II 08/28/2011 RICK ALBERTO, JESSICA Sabillon 296.89 MO BIPOLAR II 08/28/2011 MADL PRICING SUPERVISOR, DARIAN L 296.89 MO BIPOLAR II 08/28/2011 VA COOPER MISA 296.89 MO BIPOLAR II 08/28/2011 RICK ALBERTO, JESSICA Sabillon 296.89 MO BIPOLAR II 08/28/2011 VA PRICING SUPERVISOR, MISA 296.89 MO BIPOLAR II 08/28/2011 MADL PRICING SUPERVISOR, DARIAN L 296.89 MO BIPOLAR II 08/28/2011 ANGEL BARRIENTOS APRN R 296.89 MO BIPOLAR II 08/28/2011 EVAL PRICING SUPERVISOR, DARIAN L 296.89 MO BIPOLAR II 08/28/2011 [...] BALTA PEDRAZA MD 729.1 FIBROMYALGIA 12/30/2011 VA PRICING SUPERVISOR, MISA 729.1 FIBROMYALGIA 12/30/2011 VA PRICING SUPERVISOR, MISA 729.1 FIBROMYALGIA 12/30/2011 JEREMIE ALEX DDS 729.1 FIBROMYALGIA 12/30/2011 VA PRICING SUPERVISOR, MISA 729.1 FIBROMYALGIA 12/30/2011 VA PRICING SUPERVISOR, MISA 729.1 FIBROMYALGIA 12/30/2011 MADDARIAN Patten APRN 729.1 FIBROMYALGIA 12/30/2011 TREVOR LEONARDO DOA K 729.1 FIBROMYALGIA 12/30/2011 LEONARDO TREVOR BOATENGA K 729.1 FIBROMYALGIA 12/30/2011 LEONARDO TREVOR BOATENGA K 729.1 FIBROMYALGIA 12/30/2011 VA PRICING SUPERVISOR, MISA 729.1 FIBROMYALGIA 12/30/2011 EVAL KENNETH DARIAN L 729.1 FIBROMYALGIA 12/30/2011 JESSICA CABRERA PHD 729.1 FIBROMYALGIA 12/30/2011 EVAL DARIAN COOPER 729.1 FIBROMYALGIA 12/30/2011 VA KENNETH MISA 729.1 FIBROMYALGIA 12/30/2011 JESSICA CABRERA PHD 729.1 FIBROMYALGIA 12/30/2011 VA PRICING SUPERVISOR MISA 729.1 FIBROMYALGIA 12/30/2011 NATHALY HELTON APRNWNYA L 729.1 FIBROMYALGIA 12/30/2011 FLOYD COOPER ANGEL R 729.1 FIBROMYALGIA 12/30/2011 EVAL PRICING SUPERVISOR, DARIAN L 729.1 FIBROMYALGIA 12/30/2011 VA RIVERAN, MISA 729.1 FIBROMYALGIA 12/30/2011 DANIE PRICING SUPERVISORNATHALYDARIAN L 729.1 FIBROMYALGIA 12/30/2011 VA PRICING SUPERVISOR, MISA 729.1 FIBROMYALGIA 12/30/2011 729.1 FIBROMYALGIA 01/17/2012 [...] MILO SEYMOUR, BALTA 724.3 SCIATICA 04/23/2012 VA PRICING SUPERVISOR, MISA 724.3 SCIATICA 04/23/2012 VA PRICING SUPERVISOR, MISA 724.3 SCIATICA 04/23/2012 ISAI DDS, JEREMIE Pina 724.3 SCIATICA 04/23/2012 VA PRICING SUPERVISOR, MISA 724.3 SCIATICA 04/23/2012 VA PRICING SUPERVISOR, MISA 724.3 SCIATICA 04/23/2012 MADL PRICING SUPERVISOR, DARIAN L 724.3 SCIATICA 04/23/2012 LEONARDO DO, NORA K 724.3 SCIATICA 04/23/2012 LEONARDO DO, NORA K 724.3 SCIATICA 04/23/2012 LEONARDO DO, NORA K 724.3 SCIATICA 04/23/2012 VA PRICING SUPERVISOR, MISA 724.3 SCIATICA 04/23/2012 MADL PRICING SUPERVISOR, DARIAN L 724.3 SCIATICA 04/23/2012 RICK PHD, JESSICA Sabillon 724.3 SCIATICA 04/23/2012 MADL PRICING SUPERVISOR, DARIAN L 724.3 SCIATICA 04/23/2012 VA PRICING SUPERVISOR, MISA 724.3 SCIATICA 04/23/2012 RICK PHD, JESSICA Sabillon 724.3 SCIATICA 04/23/2012 VA PRICING SUPERVISOR, MISA 724.3 SCIATICA 04/23/2012 MADL PRICING SUPERVISOR, DARIAN L 724.3 SCIATICA 04/23/2012 FLOYD COOPER, ANGEL R 724.3 SCIATICA 04/23/2012 MADL PRICING SUPERVISOR, DARIAN L 724.3 SCIATICA 04/23/2012 VA PRICING SUPERVISOR, MISA 724.3 SCIATICA 04/23/2012 MADL PRICING SUPERVISOR, DARIAN L 724.3 SCIATICA 04/23/2012 VA PRICING SUPERVISOR, MISA 724.3 SCIATICA 07/17/2012 728.85 MUSCLE SPASM [...] PEDRAZA MD 728.85 MUSCLE SPASM 07/17/2012 VA PRICING SUPERVISOR, MISA 728.85 MUSCLE SPASM 07/17/2012 VA PRICING SUPERVISOR, MISA 728.85 MUSCLE SPASM 07/17/2012 JEREMIE ALEX DDS 728.85 MUSCLE SPASM 07/17/2012 VA PRICING SUPERVISOR, MISA 728.85 MUSCLE SPASM 07/17/2012 VA PRICING SUPERVISOR, MISA 728.85 MUSCLE SPASM 07/17/2012 MADL PRICING SUPERVISOR, DARIAN L 728.85 MUSCLE SPASM 07/17/2012 LEONARDO DO, NORA K 728.85 MUSCLE SPASM 07/17/2012 LEONARDO DO, NORA K 728.85 MUSCLE SPASM 07/17/2012 LEONARDO DO, NORA K 728.85 MUSCLE SPASM 07/17/2012 VA PRICING SUPERVISOR, MISA 728.85 MUSCLE SPASM 07/17/2012 MADL PRICING SUPERVISOR, DARIAN L 728.85 MUSCLE SPASM 07/17/2012 RICK ALBERTO, JESSICA A 728.85 MUSCLE SPASM 07/17/2012 MADL PRICING SUPERVISOR, DARIAN L 728.85 MUSCLE SPASM 07/17/2012 VA PRICING SUPERVISOR, MISA 728.85 MUSCLE SPASM 07/17/2012 RICK ALBERTO, JESSICA A 728.85 MUSCLE SPASM 07/17/2012 VA PRICING SUPERVISOR, MISA 728.85 MUSCLE SPASM 07/17/2012 MADL PRICING SUPERVISOR, DARIAN L 728.85 MUSCLE SPASM 07/17/2012 FLOYD PRICING SUPERVISOR, ANGEL R 728.85 MUSCLE SPASM 07/17/2012 MADL PRICING SUPERVISOR, DARIAN L 728.85 MUSCLE SPASM 07/17/2012 VA PRICING SUPERVISOR, MISA 728.85 MUSCLE SPASM 07/17/2012 MADL PRICING SUPERVISOR, DARIAN L 728.85 MUSCLE SPASM 07/17/2012 VA PRICING SUPERVISOR, MISA 728.85 MUSCLE SPASM 08/23/2012 JEANINE SEYMOUR, [...] [place] APRN 296.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 08/25/2012 BRIADNA LOUIS APRN 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 08/25/2012 RICK [...] PEDRAZA MD 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 08/25/2012 VA PRICING SUPERVISOR, MISA 296.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 08/25/2012 VA PRICING SUPERVISOR, MISA 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 08/25/2012 VA PRICING SUPERVISOR, MISA 296.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 08/25/2012 VA PRICING SUPERVISOR, MISA 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 08/25/2012 WHITE DDS, JEREMIE D 296.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 08/25/2012 WHITE DDS, JEREMIE D 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 08/25/2012 VA PRICING SUPERVISOR, MISA 296.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 08/25/2012 VA PRICING SUPERVISOR, MISA 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 08/25/2012 VA PRICING SUPERVISOR, MISA 296.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 08/25/2012 VA PRICING SUPERVISOR, MISA 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 08/25/2012 MADL PRICING SUPERVISOR, DARIAN L 296.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 08/25/2012 MADL PRICING SUPERVISOR, DARIAN L 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 08/25/2012 LEONARDO DO, NORA K 296.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 08/25/2012 LEONARDO DO, NORA K 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 08/25/2012 LEONARDO DO, NORA K 296.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 08/25/2012 LEONARDO DO, NORA K 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 08/25/2012 LEONARDO DO, NORA K 296.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 08/25/2012 LEONARDO DO, NORA K 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 08/25/2012 VA PRICING SUPERVISOR, MISA 296.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 08/25/2012 VA PRICING SUPERVISOR, MISA 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 08/25/2012 MADL PRICING SUPERVISOR, DARIAN L 296.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 08/25/2012 MADL PRICING SUPERVISOR, DARIAN L 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 08/25/2012 RICK PHD, JESSICA A 296.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 08/25/2012 RICK PHD, JESSICA A 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 08/25/2012 MADL PRICING SUPERVISOR, DARIAN L 296.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 08/25/2012 MADL PRICING SUPERVISOR, DARINA L 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 08/25/2012 VA PRICING SUPERVISOR, MISA 296.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 08/25/2012 VA PRICING SUPERVISOR, MISA 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 08/25/2012 RICK PHD, JESSICA A 296.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 08/25/2012 RICK PHD, JESSICA A 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 08/25/2012 VA PRICING SUPERVISOR, MISA 296.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 08/25/2012 [facility] PRICING SUPERVISOR, MISA 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 08/25/2012 MADL PRICING SUPERVISOR, DARIAN L 296.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 08/25/2012 MADL PRICING SUPERVISOR, DARIAN L 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 08/25/2012 FLOYD PRICING SUPERVISOR, ANGEL R 296.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 08/25/2012 FLOYD PRICING SUPERVISOR, ANGEL R 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 08/25/2012 MADL PRICING SUPERVISOR, DARIAN L 296.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 08/25/2012 MADL PRICING SUPERVISOR, DARIAN L 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 08/25/2012 VA PRICING SUPERVISOR, MISA 296.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 08/25/2012 VA PRICING SUPERVISOR, MISA 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 08/25/2012 MADL PRICING SUPERVISOR, DARIAN L 296.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 08/25/2012 MADL PRICING SUPERVISOR, DARIAN L 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 08/25/2012 VA PRICING SUPERVISOR, MISA 296.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 08/25/2012 VA PRICING SUPERVISOR, MISA 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 08/26/2012 296.80 MO [...] BALTA 296.80 MO BIPOLAR NOS 08/26/2012 VA PRICING SUPERVISOR, MISA 296.80 MO BIPOLAR NOS 08/26/2012 VA PRICING SUPERVISOR, MISA 296.80 MO BIPOLAR NOS 08/26/2012 JEREMIE ALEX DDS 296.80 MO BIPOLAR NOS 08/26/2012 VA PRICING SUPERVISOR, MISA 296.80 MO BIPOLAR NOS 08/26/2012 VA PRICING SUPERVISOR, MISA 296.80 MO BIPOLAR NOS 08/26/2012 MADL PRICING SUPERVISOR, DARIAN L 296.80 MO BIPOLAR NOS 08/26/2012 LEONARDO DO, NORA K 296.80 MO BIPOLAR NOS 08/26/2012 LEONARDO DO, NORA K 296.80 MO BIPOLAR NOS 08/26/2012 LEONARDO DO, NORA K 296.80 MO BIPOLAR NOS 08/26/2012 VA PRICING SUPERVISOR, MISA 296.80 MO BIPOLAR NOS 08/26/2012 MADL PRICING SUPERVISOR, DARIAN L 296.80 MO BIPOLAR NOS 08/26/2012 RICK PHD, JESSICA Sabillon 296.80 MO BIPOLAR NOS 08/26/2012 MADL PRICING SUPERVISOR, DARIAN L 296.80 MO BIPOLAR NOS 08/26/2012 VA PRICING SUPERVISOR, MISA 296.80 MO BIPOLAR NOS 08/26/2012 RICK PHD, JESSICA Sabillon 296.80 MO BIPOLAR NOS 08/26/2012 VA PRICING SUPERVISOR, MISA 296.80 MO BIPOLAR NOS 08/26/2012 MADL PRICING SUPERVISOR, DARIAN L 296.80 MO BIPOLAR NOS 08/26/2012 FLOYD PRICING SUPERVISOR, ANGEL R 296.80 MO BIPOLAR NOS 08/26/2012 MADL PRICING SUPERVISOR, DARIAN L 296.80 MO BIPOLAR NOS 08/26/2012 VA PRICING SUPERVISOR, MISA 296.80 MO BIPOLAR NOS 08/26/2012 MADL PRICING SUPERVISOR, DARIAN L 296.80 MO BIPOLAR NOS 08/26/2012 VA PRICING SUPERVISOR, MISA 296.80 MO BIPOLAR NOS 11/03/2012 RAOUL GARCIA Ot 307.81 TENSION HEADACHE 12/15/2012 V58.69 HIGH RISK MEDICATION 12/15/2012 BETY COOPER, JOAO A V58.69 HIGH RISK MEDICATION 12/15/2012 BRIANDA [place] APRN V58.69 HIGH RISK MEDICATION 12/15/2012 RICK PHD, JESSICA A V58.69 HIGH RISK MEDICATION 12/15/2012 RICK PHD, JESISCA A V58.69 HIGH RISK MEDICATION 12/15/2012 RICK [...] MD V58.69 HIGH RISK MEDICATION 12/15/2012 VA PRICING SUPERVISOR, MISA V58.69 HIGH RISK MEDICATION 12/15/2012 VA PRICING SUPERVISOR, MISA V58.69 HIGH RISK MEDICATION 12/15/2012 JEREMIE ALEX DDS V58.69 HIGH RISK MEDICATION 12/15/2012 VA PRICING SUPERVISOR, MISA V58.69 HIGH RISK MEDICATION 12/15/2012 VA PRICING SUPERVISOR, MISA V58.69 HIGH RISK MEDICATION 12/15/2012 MADL PRICING SUPERVISORDARIAN V58.69 HIGH RISK MEDICATION 12/15/2012 LEONARDO DO, NORA K V58.69 HIGH RISK MEDICATION 12/15/2012 LEONARDO DO, NORA K V58.69 HIGH RISK MEDICATION 12/15/2012 LEONARDO DO, NORA K V58.69 HIGH RISK MEDICATION 12/15/2012 VA PRICING SUPERVISOR, MISA V58.69 HIGH RISK MEDICATION 12/15/2012 MADL PRICING SUPERVISOR, DARIAN L V58.69 HIGH RISK MEDICATION 12/15/2012 RICK PHD, JESSICA A V58.69 HIGH RISK MEDICATION 12/15/2012 MADL PRICING SUPERVISOR, DARIAN L V58.69 HIGH RISK MEDICATION 12/15/2012 VA PRICING SUPERVISOR, MISA V58.69 HIGH RISK MEDICATION 12/15/2012 RICK PHD, JESSICA A V58.69 HIGH RISK MEDICATION 12/15/2012 VA PRICING SUPERVISOR, MISA V58.69 HIGH RISK MEDICATION 12/15/2012 MADL PRICING SUPERVISOR, DARIAN L V58.69 HIGH RISK MEDICATION 12/15/2012 FLOYD PRICING SUPERVISOR, ANGEL R V58.69 HIGH RISK MEDICATION 12/15/2012 MADL PRICING SUPERVISOR, DARIAN L V58.69 HIGH RISK MEDICATION 12/15/2012 VA PRICING SUPERVISOR, MISA V58.69 HIGH RISK MEDICATION 12/15/2012 MADL PRICING SUPERVISOR, DARIAN L V58.69 HIGH RISK MEDICATION 12/15/2012 VA PRICING SUPERVISOR, MISA V58.69 HIGH RISK MEDICATION 12/21/2012 BETY [...] ALBERTO, JESSICA A V74.5 STD SCREEN 12/21/2012 BRIANAD LOUIS APRN V72.41 TEST NEGATIVE RESULT 12/21/2012 BRIANDA LOUIS APRN V74.5 STD SCREEN 12/21/2012 RICK ALBERTO, JESSICA A V72.41 TEST NEGATIVE RESULT 12/21/2012 RICK PHD, JESSICA A V74.5 STD SCREEN 12/21/2012 VALERIANO SEYMOUR, DOMINIC Iverson V72.41 TEST NEGATIVE RESULT 12/21/2012 VALERIANO SEMYOUR, DOMINIC Iverson V74.5 STD SCREEN 12/21/2012 VALERIANO [...] PEDRAZA MD V74.5 STD SCREEN 12/21/2012 VA PRICING SUPERVISOR, MISA V72.41 TEST NEGATIVE RESULT 12/21/2012 VA PRICING SUPERVISOR, MISA V74.5 STD SCREEN 12/21/2012 VA PRICING SUPERVISOR, MISA V72.41 TEST NEGATIVE RESULT 12/21/2012 VA PRICING SUPERVISOR, MISA V74.5 STD SCREEN 12/21/2012 JEREMIE ALEX DDS V72.41 TEST NEGATIVE RESULT 12/21/2012 JEREMIE ALEX DDS V74.5 STD SCREEN 12/21/2012 VA PRICING SUPERVISOR, MISA V72.41 TEST NEGATIVE RESULT 12/21/2012 VA PRICING SUPERVISOR, MISA V74.5 STD SCREEN 12/21/2012 VA PRICING SUPERVISOR, MISA V72.41 TEST NEGATIVE RESULT 12/21/2012 VA PRICING SUPERVISOR, MISA V74.5 STD SCREEN 12/21/2012 MADL PRICING SUPERVISOR, DARIAN L V72.41 TEST NEGATIVE RESULT 12/21/2012 MADL PRICING SUPERVISOR, DARIAN L V74.5 STD SCREEN 12/21/2012 LEONARDO DO, NORA K V72.41 TEST NEGATIVE RESULT 12/21/2012 LEONARDO DO, NORA K V74.5 STD SCREEN 12/21/2012 LEONARDO DO, NORA K V72.41 TEST NEGATIVE RESULT 12/21/2012 LEONARDO DO, NORA K V74.5 STD SCREEN 12/21/2012 LEONARDO DO, NORA K V72.41 TEST NEGATIVE RESULT 12/21/2012 LEONARDO DO, NORA K V74.5 STD SCREEN 12/21/2012 VA PRICING SUPERVISOR, MISA V72.41 TEST NEGATIVE RESULT 12/21/2012 VA PRICING SUPERVISOR, MISA V74.5 STD SCREEN 12/21/2012 MADL PRICING SUPERVISOR, DARIAN L V72.41 TEST NEGATIVE RESULT 12/21/2012 MADL PRICING SUPERVISOR, DARIAN L V74.5 STD SCREEN 12/21/2012 RICK ALBERTO, JESSICA Sabillon V72.41 TEST NEGATIVE RESULT 12/21/2012 RICK PHD, JSESICA Sabillon V74.5 STD SCREEN 12/21/2012 MADL PRICING SUPERVISOR, DARIAN L V72.41 TEST NEGATIVE RESULT 12/21/2012 MADL PRICING SUPERVISOR, DARIAN L V74.5 STD SCREEN 12/21/2012 VA PRICING SUPERVISOR, MISA V72.41 TEST NEGATIVE RESULT 12/21/2012 VA PRICING SUPERVISOR, MISA V74.5 STD SCREEN 12/21/2012 RICK PHD, JESSICA Sabillon V72.41 TEST NEGATIVE RESULT 12/21/2012 RICK PHD, JESSICA A V74.5 STD SCREEN 12/21/2012 VA PRICING SUPERVISOR, MISA V72.41 TEST NEGATIVE RESULT 12/21/2012 VA PRICING SUPERVISOR, MISA V74.5 STD SCREEN 12/21/2012 MADL PRICING SUPERVISOR, DARIAN L V72.41 TEST NEGATIVE RESULT 12/21/2012 MADL PRICING SUPERVISOR, DARIAN L V74.5 STD SCREEN 12/21/2012 FLOYD PRICING SUPERVISOR, ANGEL R V72.41 TEST NEGATIVE RESULT 12/21/2012 FLOYD PRICING SUPERVISOR, ANGEL R V74.5 STD SCREEN 12/21/2012 MADL PRICING SUPERVISOR, DARIAN L V72.41 TEST NEGATIVE RESULT 12/21/2012 MADL PRICING SUPERVISOR, DARIAN L V74.5 STD SCREEN 12/21/2012 VA PRICING SUPERVISOR, MISA V72.41 TEST NEGATIVE RESULT 12/21/2012 VA PRICING SUPERVISOR, MISA V74.5 STD SCREEN 12/21/2012 MADL PRICING SUPERVISOR, DARIAN L V72.41 TEST NEGATIVE RESULT 12/21/2012 MADL PRICING SUPERVISOR, DARAIN L V74.5 STD SCREEN 12/21/2012 VA PRICING SUPERVISOR, MISA V72.41 TEST NEGATIVE RESULT 12/21/2012 VA PRICING SUPERVISOR, MISA V74.5 STD SCREEN 12/21/2012 GARFIELD BRIDGETTE [...] CONTUSION OF WRIST 03/17/2013 GOMEZ, PETER J PRICING SUPERVISOR Ot 959.3 ELB/FOREARM/WRST INJ NOS 03/17/2013 JASON NOBLE Belén PRICING SUPERVISOR Ot E000.8 OTHER EXTERNAL CAUSE STATUS 03/17/2013 NOBLE GOMEZ PRICING SUPERVISOR Ot E849.0 ACCIDENT IN HOME 03/17/2013 NOBLE GOMEZ PRICING SUPERVISOR Ot E917.4 STAT OB W/O SUB FALL [...] PEDRAZA MD 719.43 PAIN- WRIST 03/18/2013 VA PRICING SUPERVISOR, MISA 719.43 PAIN- WRIST 03/18/2013 VA PRICING SUPERVISOR, MISA 719.43 PAIN- WRIST 03/18/2013 JEREMIE ALEX DDS 719.43 PAIN- WRIST 03/18/2013 VA PRICING SUPERVISOR, MISA 719.43 PAIN- WRIST 03/18/2013 VA PRICING SUPERVISOR, MISA 719.43 PAIN- WRIST 03/18/2013 MADL PRICING SUPERVISOR, DARIAN L 719.43 PAIN- WRIST 03/18/2013 LEONARDO DO, NORA K 719.43 PAIN- WRIST 03/18/2013 LEONARDO DO, NORA K 719.43 PAIN- WRIST 03/18/2013 LEONARDO DO, NORA K 719.43 PAIN- WRIST 03/18/2013 VA PRICING SUPERVISOR, MISA 719.43 PAIN- WRIST 03/18/2013 MADL PRICING SUPERVISOR, DARIAN L 719.43 PAIN- WRIST 03/18/2013 RICK PHD, JESSICA Sabillon 719.43 PAIN- WRIST 03/18/2013 MADL PRICING SUPERVISOR, DARIAN L 719.43 PAIN- WRIST 03/18/2013 VA PRICING SUPERVISOR, MISA 719.43 PAIN- WRIST 03/18/2013 RICK PHD, JESSICA Sabillon 719.43 PAIN- WRIST 03/18/2013 VA PRICING SUPERVISOR, MISA 719.43 PAIN- WRIST 03/18/2013 MADL PRICING SUPERVISOR, DARIAN L 719.43 PAIN- WRIST 03/18/2013 FLOYD PRICING SUPERVISOR, ANGEL R 719.43 PAIN- WRIST 03/18/2013 MADL PRICING SUPERVISOR, DARIAN L 719.43 PAIN- WRIST 03/18/2013 VA PRICING SUPERVISOR, MISA 719.43 PAIN- WRIST 03/18/2013 MADL PRICING SUPERVISOR, DARIAN L 719.43 PAIN- WRIST 03/18/2013 VA PRICING SUPERVISOR, MISA 719.43 PAIN- WRIST 06/04/2013 DOMINIC BAL [...] BALTA PEDRAZA MD 788.1 DYSURIA 06/04/2013 VA PRICING SUPERVISOR, MISA 462 SORE THROAT ACUTE 06/04/2013 VA PRICING SUPERVISOR, MISA 719.46 joint pain in both knees 06/04/2013 VA PRICING SUPERVISOR, MISA 788.1 DYSURIA 06/04/2013 VA PRICING SUPERVISOR, MISA 462 SORE THROAT ACUTE 06/04/2013 VA PRICING SUPERVISOR, IMSA 719.46 joint pain in both knees 06/04/2013 VA PRICING SUPERVISOR, MISA 788.1 DYSURIA 06/04/2013 WHITE DDS, JEREMIE D 462 SORE THROAT ACUTE 06/04/2013 WHITE DDS, JEREMIE D 719.46 joint pain in both knees 06/04/2013 WHITE DDS, JEREMIE D 788.1 DYSURIA 06/04/2013 VA PRICING SUPERVISOR, MISA 462 SORE THROAT ACUTE 06/04/2013 VA PRICING SUPERVISOR, MISA 719.46 joint pain in both knees 06/04/2013 VA PRICING SUPERVISOR, MISA 788.1 DYSURIA 06/04/2013 VA PRICING SUPERVISOR, MISA 462 SORE THROAT ACUTE 06/04/2013 VA PRICING SUPERVISOR, MISA 719.46 joint pain in both knees 06/04/2013 VA PRICING SUPERVISOR, MISA 788.1 DYSURIA 06/04/2013 MADL PRICING SUPERVISOR, DARIAN L 462 SORE THROAT ACUTE 06/04/2013 MADL PRICING SUPERVISOR, DARIAN L 719.46 joint pain in both knees 06/04/2013 MADL PRICING SUPERVISOR, DARIAN L 788.1 DYSURIA 06/04/2013 LEONARDO DO, [...] DO, NORA K 788.1 DYSURIA 06/04/2013 VA PRICING SUPERVISOR, MISA 462 SORE THROAT ACUTE 06/04/2013 AV PRICING SUPERVISOR, MISA 719.46 joint pain in both knees 06/04/2013 VA PRICING SUPERVISOR, MISA 788.1 DYSURIA 06/04/2013 MADL PRICING SUPERVISOR, DARIAN L 462 SORE THROAT ACUTE 06/04/2013 MADL PRICING SUPERVISOR, DARIAN L 719.46 joint pain in both knees 06/04/2013 MADL PRICING SUPERVISOR, DARIAN L 788.1 DYSURIA 06/04/2013 RICK ALBERTO, JESSICA A 462 SORE THROAT ACUTE 06/04/2013 RICK ALBERTO, JESSICA A 719.46 joint pain in both knees 06/04/2013 RICK ALBERTO, JESSICA A 788.1 DYSURIA 06/04/2013 MADL PRICING SUPERVISOR, DARIAN L 462 SORE THROAT ACUTE 06/04/2013 MADL PRICING SUPERVISOR, DARIAN L 719.46 joint pain in both knees 06/04/2013 MADL PRICING SUPERVISOR, DARIAN L 788.1 DYSURIA 06/04/2013 VA PRICING SUPERVISOR, MISA 462 SORE THROAT ACUTE 06/04/2013 VA PRICING SUPERVISOR, MISA 719.46 joint pain in both knees 06/04/2013 VA PRICING SUPERVISOR, MISA 788.1 DYSURIA 06/04/2013 RICK PHD, JESSICA A 462 SORE THROAT ACUTE 06/04/2013 RICK PHD, JESSICA A 719.46 joint pain in both knees 06/04/2013 RICK PHD, JESSICA A 788.1 DYSURIA 06/04/2013 VA PRICING SUPERVISOR, MISA 462 SORE THROAT ACUTE 06/04/2013 VA PRICING SUPERVISOR, MISA 719.46 joint pain in both knees 06/04/2013 VA PRICING SUPERVISOR, MISA 788.1 DYSURIA 06/04/2013 MADL PRICING SUPERVISOR, DARIAN L 462 SORE THROAT ACUTE 06/04/2013 MADL PRICING SUPERVISOR, DARIAN L 719.46 joint pain in both knees 06/04/2013 MADL PRICING SUPERVISOR, DARIAN L 788.1 DYSURIA 06/04/2013 FLOYD PRICING SUPERVISOR, ANGEL R 462 SORE THROAT ACUTE 06/04/2013 FLOYD PRICING SUPERVISOR, ANGEL R 719.46 joint pain in both knees 06/04/2013 FLOYD PRICING SUPERVISOR, ANGEL R 788.1 DYSURIA 06/04/2013 MADL PRICING SUPERVISOR, DARIAN L 462 SORE THROAT ACUTE 06/04/2013 MADL PRICING SUPERVISOR, DARIAN L 719.46 joint pain in both knees 06/04/2013 MADL PRICING SUPERVISOR, DARIAN L 788.1 DYSURIA 06/04/2013 VA PRICING SUPERVISOR, MISA 462 SORE THROAT ACUTE 06/04/2013 VA PRICING SUPERVISOR, MISA 719.46 joint pain in both knees 06/04/2013 VA PRICING SUPERVISOR, MISA 788.1 DYSURIA 06/04/2013 MADL PRICING SUPERVISOR, DARIAN L 462 SORE THROAT ACUTE 06/04/2013 MADL PRICING SUPERVISOR, DARIAN L 719.46 joint pain in both knees 06/04/2013 MADL PRICING SUPERVISOR, DARIAN L 788.1 DYSURIA 06/04/2013 VA PRICING SUPERVISOR, MISA 462 SORE THROAT ACUTE 06/04/2013 VA PRICING SUPERVISOR, MISA 719.46 joint pain in both knees 06/04/2013 VA PRICING SUPERVISOR, MISA 788.1 DYSURIA 06/10/2013 VALERIANO SEYMOUR, DOMINIC [...] PEDRAZA MD 789.00 abdominal pain 06/10/2013 VA PRICING SUPERVISOR, MISA 782.0 tingling (paresthesia) 06/10/2013 VA PRICING SUPERVISOR, MISA 789.00 abdominal pain 06/10/2013 VA PRICING SUPERVISOR, MISA 782.0 tingling (paresthesia) 06/10/2013 VA PRICING SUPERVISOR, MISA 789.00 abdominal pain 06/10/2013 JEREMIE ALEX DDS 782.0 tingling (paresthesia) 06/10/2013 JEREMIE ALEX DDS 789.00 abdominal pain 06/10/2013 VA PRICING SUPERVISOR, MISA 782.0 tingling (paresthesia) 06/10/2013 VA PRICING SUPERVISOR, MISA 789.00 abdominal pain 06/10/2013 VA PRICING SUPERVISOR, MISA 782.0 tingling (paresthesia) 06/10/2013 VA PRICING SUPERVISOR, MISA 789.00 abdominal pain 06/10/2013 MADL PRICING SUPERVISOR, DARIAN L 782.0 tingling (paresthesia) 06/10/2013 MADL PRICING SUPERVISOR, DARIAN L 789.00 abdominal pain 06/10/2013 LEONARDO DO, NORA K 782.0 tingling (paresthesia) 06/10/2013 LEONARDO DO, NORA K 789.00 abdominal pain 06/10/2013 LEONARDO DO, NORA K 782.0 tingling (paresthesia) 06/10/2013 LEONARDO DO, NORA K 789.00 abdominal pain 06/10/2013 LEONARDO DO, NORA K 782.0 tingling (paresthesia) 06/10/2013 LEONARDO DO, NORA K 789.00 abdominal pain 06/10/2013 VA PRICING SUPERVISOR, MISA 782.0 tingling (paresthesia) 06/10/2013 VA PRICING SUPERVISOR, MISA 789.00 abdominal pain 06/10/2013 MADL PRICING SUPERVISOR, DARIAN L 782.0 tingling (paresthesia) 06/10/2013 MADL PRICING SUPERVISOR, DARIAN L 789.00 abdominal pain 06/10/2013 RICK PHD, JESSICA A 782.0 tingling (paresthesia) 06/10/2013 RICK PHD, JESSICA A 789.00 abdominal pain 06/10/2013 MADL PRICING SUPERVISOR, DARIAN L 782.0 tingling (paresthesia) 06/10/2013 MADL PRICING SUPERVISOR, DARIAN L 789.00 abdominal pain 06/10/2013 VA PRICING SUPERVISOR, MISA 782.0 tingling (paresthesia) 06/10/2013 VA PRICING SUPERVISOR, MISA 789.00 abdominal pain 06/10/2013 RICK PHD, JESSICA A 782.0 tingling (paresthesia) 06/10/2013 RICK PHD, JESSICA A 789.00 abdominal pain 06/10/2013 VA PRICING SUPERVISOR, MISA 782.0 tingling (paresthesia) 06/10/2013 VA PRICING SUPERVISOR, MISA 789.00 abdominal pain 06/10/2013 MADL PRICING SUPERVISOR, DARIAN L 782.0 tingling (paresthesia) 06/10/2013 MADL PRICING SUPERVISOR, DARIAN L 789.00 abdominal pain 06/10/2013 FLOYD PRICING SUPERVISOR, ANGEL R 782.0 tingling (paresthesia) 06/10/2013 FLOYD PRICING SUPERVISOR, ANGEL R 789.00 abdominal pain 06/10/2013 MADL PRICING SUPERVISOR, DARIAN L 782.0 tingling (paresthesia) 06/10/2013 MADL PRICING SUPERVISOR, DARIAN L 789.00 abdominal pain 06/10/2013 VA PRICING SUPERVISOR, MISA 782.0 tingling (paresthesia) 06/10/2013 VA PRICING SUPERVISOR, MISA 789.00 abdominal pain 06/10/2013 MADL PRICING SUPERVISOR, DARIAN L 782.0 tingling (paresthesia) 06/10/2013 MADL PRICING SUPERVISOR, DARIAN L 789.00 abdominal pain 06/10/2013 VA PRICING SUPERVISOR, MISA 782.0 tingling (paresthesia) 06/10/2013 VA PRICING SUPERVISOR, MISA 789.00 abdominal pain 07/02/2013 LEONARDO DO, NORA K 786.09 RESPIRATORY ABNORMALITY OTHER 07/02/2013 LEONARDO DO, NORA K 786.09 RESPIRATORY ABNORMALITY OTHER 07/02/2013 LEONARDO DO, NORA K 786.09 RESPIRATORY ABNORMALITY OTHER 07/02/2013 MILO SEYMOUR, BALTA 786.09 RESPIRATORY ABNORMALITY OTHER 07/02/2013 VA PRICING SUPERVISOR, MISA 786.09 RESPIRATORY ABNORMALITY OTHER 07/02/2013 VA PRICING SUPERVISOR, MISA 786.09 RESPIRATORY ABNORMALITY OTHER 07/02/2013 ISAI SPARKSS, JEREMIE Pina 786.09 RESPIRATORY ABNORMALITY OTHER 07/02/2013 VA PRICING SUPERVISOR, MISA 786.09 RESPIRATORY ABNORMALITY OTHER 07/02/2013 VA PRICING SUPERVISOR, MISA 786.09 RESPIRATORY ABNORMALITY OTHER 07/02/2013 MADL PRICING SUPERVISOR, DARIAN L 786.09 RESPIRATORY ABNORMALITY OTHER 07/02/2013 LEONARDO DO, NORA K 786.09 RESPIRATORY ABNORMALITY OTHER 07/02/2013 LEONARDO DO, NORA K 786.09 RESPIRATORY ABNORMALITY OTHER 07/02/2013 LEONARDO DO, NORA K 786.09 RESPIRATORY ABNORMALITY OTHER 07/02/2013 VA PRICING SUPERVISOR, MISA 786.09 RESPIRATORY ABNORMALITY OTHER 07/02/2013 MADL PRICING SUPERVISOR, DARIAN L 786.09 RESPIRATORY ABNORMALITY OTHER 07/02/2013 RICK ALBERTO, JESSICA Sabillon 786.09 RESPIRATORY ABNORMALITY OTHER 07/02/2013 MADL PRICING SUPERVISOR, DARIAN L 786.09 RESPIRATORY ABNORMALITY OTHER 07/02/2013 VA PRICING SUPERVISOR, MISA 786.09 RESPIRATORY ABNORMALITY OTHER 07/02/2013 RICK PHD, JESSICA Sabillon 786.09 RESPIRATORY ABNORMALITY OTHER 07/02/2013 VA PRICING SUPERVISOR, MISA 786.09 RESPIRATORY ABNORMALITY OTHER 07/02/2013 MADL PRICING SUPERVISOR, DARIAN L 786.09 RESPIRATORY ABNORMALITY OTHER 07/02/2013 ANGEL BARRIENTOS APRN 786.09 RESPIRATORY ABNORMALITY OTHER 07/02/2013 MADL PRICING SUPERVISOR, DARIAN L 786.09 RESPIRATORY ABNORMALITY OTHER 07/02/2013 VA PRICING SUPERVISOR, MISA 786.09 RESPIRATORY ABNORMALITY OTHER 07/02/2013 MADL PRICING SUPERVISOR, DARIAN L 786.09 RESPIRATORY ABNORMALITY OTHER 07/02/2013 VA PRICING SUPERVISOR, MISA 786.09 RESPIRATORY ABNORMALITY OTHER 08/05/2013 LEONARDO DO, NORA K 733.92 CHONDROMALACIA 08/05/2013 LEONARDO DO, NORA K 733.92 CHONDROMALACIA 08/05/2013 MILO SEYMOUR, BALTA 733.92 CHONDROMALACIA 08/05/2013 VA PRICING SUPERVISOR, MISA 733.92 CHONDROMALACIA 08/05/2013 VA PRICING SUPERVISOR, MISA 733.92 CHONDROMALACIA 08/05/2013 JEREMIE ALEX DDS 733.92 CHONDROMALACIA 08/05/2013 VA PRICING SUPERVISOR, MISA 733.92 CHONDROMALACIA 08/05/2013 VA PRICING SUPERVISOR, MISA 733.92 CHONDROMALACIA 08/05/2013 MADL PRICING SUPERVISOR, DARIAN L 733.92 CHONDROMALACIA 08/05/2013 LEONARDO DO, NORA K 733.92 CHONDROMALACIA 08/05/2013 LEONARDO DO, NORA K 733.92 CHONDROMALACIA 08/05/2013 LEONARDO DO, NORA K 733.92 CHONDROMALACIA 08/05/2013 VA PRICING SUPERVISOR, MISA 733.92 CHONDROMALACIA 08/05/2013 MADL PRICING SUPERVISOR, DARIAN L 733.92 CHONDROMALACIA 08/05/2013 RICK ALBERTO, JESSICA Sabillon 733.92 CHONDROMALACIA 08/05/2013 MADL PRICING SUPERVISOR, DARIAN L 733.92 CHONDROMALACIA 08/05/2013 VA PRICING SUPERVISOR, MISA 733.92 CHONDROMALACIA 08/05/2013 RICK PHD, JESSICA Sabillon 733.92 CHONDROMALACIA 08/05/2013 VA PRICING SUPERVISOR, MISA 733.92 CHONDROMALACIA 08/05/2013 MADL PRICING SUPERVISOR, DARIAN L 733.92 CHONDROMALACIA 08/05/2013 ANGEL BARRIENTOS APRN 733.92 CHONDROMALACIA 08/05/2013 MADL PRICING SUPERVISOR, DARIAN L 733.92 CHONDROMALACIA 08/05/2013 VA PRICING SUPERVISOR, MISA 733.92 CHONDROMALACIA 08/05/2013 MADL PRICING SUPERVISOR, DARIAN L 733.92 CHONDROMALACIA 08/05/2013 VA PRICING SUPERVISOR, MISA 733.92 CHONDROMALACIA 10/03/2013 NOBLE GOMEZ APRN Ot 620.2 OVARIAN CYST NEC/NOS 10/03/2013 NOBLE GOMEZ APRN Ot 789.00 ABDOMINAL PAIN, UNSPECIFIED SITE 11/01/2013 NOBLE GOMEZ APRN Ot 338.29 OTHER CHRONIC PAIN 11/01/2013 NOBLE GOMEZ APRN Ot 620.2 OVARIAN CYST NEC/NOS 11/01/2013 NOBLE GOMEZ PRICING SUPERVISOR Ot 789.00 ABDOMINAL PAIN, UNSPECIFIED SITE 11/03/2013 DANIE PRICING SUPERVISOR, DARIAN L 620.2 OVARIAN CYST 11/03/2013 LEONARDO DO, NORA K 620.2 OVARIAN CYST 11/03/2013 LEONARDO DO, NORA K 620.2 OVARIAN CYST 11/03/2013 LEONARDO DO, NORA K 620.2 OVARIAN CYST 11/03/2013 [facility] PRICING SUPERVISOR, MISA 620.2 OVARIAN CYST 11/03/2013 MADL PRICING SUPERVISOR, DARIAN L 620.2 OVARIAN CYST 11/03/2013 RICK PHD, JESSICA Sabillon 620.2 OVARIAN CYST 11/03/2013 MADL PRICING SUPERVISOR, DARIAN L 620.2 OVARIAN CYST 11/03/2013 [facility] PRICING SUPERVISOR, MISA 620.2 OVARIAN CYST 11/03/2013 RICK PHD, JESSICA Sabillon 620.2 OVARIAN CYST 11/03/2013 [facility] PRICING SUPERVISOR, MISA 620.2 OVARIAN CYST 11/03/2013 MADL PRICING SUPERVISOR, DARIAN L 620.2 OVARIAN CYST 11/03/2013 ANGEL BARRIENTOS APRN R 620.2 OVARIAN CYST 11/03/2013 MADL PRICING SUPERVISOR, DARIAN L 620.2 OVARIAN CYST 11/03/2013 [facility] PRICING SUPERVISOR, MISA 620.2 OVARIAN CYST 11/03/2013 MADL PRICING SUPERVISOR, DARIAN L 620.2 OVARIAN CYST 11/03/2013 [facility] PRICING SUPERVISOR, MISA 620.2 OVARIAN CYST 12/02/2013 LEONARDO DO, NORA K 787.02 NAUSEA ALONE 12/02/2013 LEONARDO DO, NORA K 787.02 NAUSEA ALONE 12/02/2013 [facility] PRICING SUPERVISOR, MISA 787.02 NAUSEA ALONE 12/02/2013 MADL PRICING SUPERVISOR, DARIAN L 787.02 NAUSEA ALONE 12/02/2013 RICK PHD, JESSICA Sabillon 787.02 NAUSEA ALONE 12/02/2013 DANIE PRICING SUPERVISORRAMON BalA L 787.02 NAUSEA ALONE 12/02/2013 [facility] PRICING SUPERVISOR, MISA 787.02 NAUSEA ALONE 12/02/2013 RICK PHD, JESSICA Sabillon 787.02 NAUSEA ALONE 12/02/2013 [facility] PRICING SUPERVISOR, MISA 787.02 NAUSEA ALONE 12/02/2013 MADL PRICING SUPERVISOR, DARIAN L 787.02 NAUSEA ALONE 12/02/2013 FREDERIC BARRIENTOS APRNINA R 787.02 NAUSEA ALONE 12/02/2013 MADL PRICING SUPERVISOR, DARIAN L 787.02 NAUSEA ALONE 12/02/2013 [facility] PRICING SUPERVISOR, MISA 787.02 NAUSEA ALONE 12/02/2013 DANIE PRICING SUPERVISOR, DARIAN L 787.02 NAUSEA ALONE 12/02/2013 [facility] PRICING SUPERVISOR, MISA 787.02 NAUSEA ALONE 12/30/2013 MISA DE DIOS APRN 300.01 AN PANIC DIS W/O AGORA 12/30/2013 DARIAN HELTON APRN L 300.01 AN PANIC DIS W/O AGORA 12/30/2013 RICK ALBERTO, JESSICA Sabillon 300.01 AN PANIC DIS W/O AGORA 12/30/2013 DARINA HELTON APRN L 300.01 AN PANIC DIS [...] THE TEETH AND SUPPORTING STRUCTURES 12/31/2013 MADL PRICING SUPERVISOR, DARIAN L 719.45 PAIN IN JOINT INVOLVING [...] INVOLVING PELVIC REGION AND THIGH 12/31/2013 [facility] PRICING SUPERVISOR, MISA 525.9 UNSPECIFIED DISORDER OF THE TEETH AND SUPPORTING STRUCTURES 12/31/2013 [facility] COOPER, MISA 719.45 PAIN IN JOINT INVOLVING PELVIC REGION AND THIGH 01/05/2014 STELLA SULLIVAN DO Ot 346.90 MIGRAINE UNSPECIFIED W/O INTRACT MGRN W/ 01/05/2014 STELLA SULLIVAN DO Ot 522.5 PERIAPICAL ABSCESS 01/05/2014 STELLA SULLIVAN DO Ot 784.0 HEADACHE 01/10/2014 NOBLE GOMEZ PRICING SUPERVISOR Ot 784.0 HEADACHE 01/24/2014 MADL PRICING SUPERVISOR, DARIAN L 380.4 IMPACTED CERUMEN 01/24/2014 MADL PRICING SUPERVISOR, DARIAN L 780.4 DIZZINESS AND GIDDINESS 01/24/2014 [facility] PRICING SUPERVISOR, MISA 380.4 IMPACTED CERUMEN 01/24/2014 [facility] PRICING SUPERVISOR, MISA 780.4 DIZZINESS AND GIDDINESS 01/24/2014 JESSICA CABRERA PHD 380.4 IMPACTED CERUMEN 01/24/2014 RICK ALBERTO, JESSICA Sabillon 780.4 DIZZINESS AND GIDDINESS 01/24/2014 [facility] PRICING SUPERVISOR, MISA 380.4 IMPACTED CERUMEN 01/24/2014 [facility] PRICING SUPERVISOR, MISA 780.4 DIZZINESS AND GIDDINESS 01/24/2014 MADL PRICING SUPERVISOR, DARIAN L 380.4 IMPACTED CERUMEN 01/24/2014 MADL PRICING SUPERVISOR, DARIAN L 780.4 DIZZINESS AND GIDDINESS 01/24/2014 FLOYD PRICING SUPERVISOR, ANGEL R 380.4 IMPACTED CERUMEN 01/24/2014 FLOYD PRICING SUPERVISOR, ANGEL R 780.4 DIZZINESS AND GIDDINESS 01/24/2014 MADL PRICING SUPERVISOR, DARIAN L 380.4 IMPACTED CERUMEN 01/24/2014 MADL PRICING SUPERVISOR, DARIAN L 780.4 DIZZINESS AND GIDDINESS 01/24/2014 [facility] PRICING SUPERVISOR, MISA 380.4 IMPACTED CERUMEN 01/24/2014 [facility] PRICING SUPERVISOR, MISA 780.4 DIZZINESS AND GIDDINESS 01/24/2014 MADL PRICING SUPERVISOR, DARIAN L 380.4 IMPACTED CERUMEN 01/24/2014 MADL PRICING SUPERVISOR, DARIAN L 780.4 DIZZINESS AND GIDDINESS 01/24/2014 [facility] PRICING SUPERVISOR, MISA 380.4 IMPACTED CERUMEN 01/24/2014 [facility] PRICING SUPERVISOR, MISA 780.4 DIZZINESS AND GIDDINESS 01/28/2014 JESSICA CABRERA PHD 300.21 AN PANIC DIS W AGORA 01/28/2014 MISA DE DIOS APRN 300.21 AN PANIC DIS W AGORA 01/28/2014 MADL PRICING SUPERVISOR, DARIAN L 300.21 AN PANIC DIS W AGORA 01/28/2014 FLOYD PRICING SUPERVISOR, ANGEL R 300.21 AN PANIC DIS W AGORA 01/28/2014 MADL PRICING SUPERVISOR, DARIAN L 300.21 AN PANIC DIS W AGORA 01/28/2014 [facility] PRICING SUPERVISOR, MISA 300.21 AN PANIC DIS W AGORA 01/28/2014 MADL PRICING SUPERVISOR, DARIAN L 300.21 AN PANIC DIS W AGORA 01/28/2014 [facility] PRICING SUPERVISOR, MISA 300.21 AN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
== END 2018-10-26 20:25 | disposition home or self-care (01) ==
LOC: EDUNIT# 20:13 → ER 20:15
DX: B34.9 Viral infection, unspecified (principal); J45.998 Other asthma; G43.909 Migraine, unspecified, not intractable, without status migrainosus; F12.10 Cannabis abuse, uncomplicated; F15.10 Other stimulant abuse, uncomplicated; F41.9 Anxiety disorder, unspecified; Z90.49 Acquired absence of other specified parts of digestive tract; Z98.51 Tubal ligation status
CPT/HCPCS: 99282

== ENCOUNTER 2018-11-02 21:54 | Emergency (ER) | payer SELFPAY ==
[~2018-11-02] VITALS: Ht 172.7 cm; Wt 99.8 kg
[~2018-11-02 21:54] MED LIST changes: +D-ME118S33 PO
--- OUTSIDE RECORDS SUMMARY | 2018-11-02 21:59 | XMS REPORT | Encounter Summary ---
Author Author [facility] Organization [facility] Address Unknown Phone Unavailable Care Team Providers Care Corporation Pilot Name Role Phone PCP Unavailable Reason for Visit * Reason Comments Knee Pain Encounter Details Care Team Description Date Type Department Maddy Fritz MD [address] [place] [address] Contusion of right knee, initial encounter (Primary Dx) 09/09/2017 Emergency [facility] [address] [address] Social History Date Tobacco Use Types Packs/Day [...] should have a mammogram. You can call [facility] breast clinic at [phone] for assistance. Typically you can walk in for this test. Very important to follow up as this could be a symptom of breast cancer. * Attachments The following attachments cannot be sent through Care Everywhere.* LOWER EXTREMITY CONTUSION (HAITIAN) documented in this encounter Medications at Time of Discharge Start Date End Date Medication Sig Dispensed Refills albuterol (PROVENTIL HFA) Inhale 2 0 90 mcg/actuation HFA puffs every 6 inhaler (six) hours as needed for wheezing. documented as of this encounter ED Notes * Maddy Fritz MD - 09/09/2017 10:47 PM CDT 09/09/2017 [facility] History Chief Complaint Patient presents with [...] dication prior to arrival. She has visited [facility] times since [...] for breast cancer, provided phone number for [facility] breast clinic. Come back for neurovascular compromise or otherwise worsening condition. ED Clinical Impression 1. Contusion of right knee, initial encounter Patient ED Dispo ED Disposition Discharge Maddy Fritz MD 09/09/17 4156 * Sloane Medel RN - 09/09/2017 9:06 [...] At Patient: JIGNESH GIVENS Sex#:F # [id number] Reilly#:[id number] Location:[facility] ED ED 04-07Accession#: [id number] Procedure Requested:[id number] XR KNEE 3 VIEWS RIGHT Reason for Exam:medial knee pain after hitting on dresser Exam Ordered: Exam Date/Time: Begin exam date/time: EXAMINATION: XR KNEE 3 VIEWS RIGHT CLINICAL INFORMATION: medial knee pain after hitting on dresser COMPARISON: None Procedure Note Interface, Rad Results In - 09/09/2017 9:58 PM CDT Patient: BERNIE GIVENS Sex#: F # [id number] Reilly#: [id number] Location: [facility] ED ED 04-07 Procedure Requested: [id number] XR KNEE 3 VIEWS RIGHT Reason for [...]
--- OUTSIDE RECORDS SUMMARY | 2018-11-02 21:59 | XMS REPORT | Encounter Summary ---
Author Author [facility] Organization [facility] Address Unknown Phone Unavailable Care Team Providers Care Investment Analyst Name Role Phone PCP Unavailable Reason for Visit * Reason Comments Headache walked into door at movies at approx 0030. Encounter Details Care Team Description [place] [address] [place] [address] Closed head injury, initial encounter (Primary Dx) 09/08/2017 Emergency [facility] [address] [place] [address] Social History Date Tobacco Use Types Packs/Day [...] through Care Everywhere.* Concussion, Discharge Instructions for (Bangladeshi) documented in this encounter Medications at Time of Discharge Start Date End Date Medication Sig Dispensed Refills albuterol (PROVENTIL HFA) Inhale 2 0 90 mcg/actuation HFA puffs every 6 inhaler (six) hours as needed for wheezing. documented as of this encounter ED Notes * Mc Clay DO - 09/08/2017 12:58 AM CDT 09/08/2017 [facility] History Chief Complaint Patient presents with [...]
--- OUTSIDE RECORDS SUMMARY | 2018-11-02 21:59 | XMS REPORT | Encounter Summary ---
Author Author [facility] Organization [facility] Address Unknown Phone Unavailable Care Team Providers Care Dry Sander Name Role Phone PCP Unavailable Reason for Visit * Reason Comments Shoulder Injury Encounter Details Care Team Description Date [place] [address] [place] [address] [place] [address] [place] [address] Syncope, unspecified syncope type (Primary Dx) 09/23/2017 Emergency [facility] [address] [place] [address] Social History Date Tobacco Use Types Packs/Day [...] sent through Care Everywhere.* SYNCOPE, UNK CAUSE (WELSH) documented in this encounter Medications at Time [...] ED PROCEDURE BASIC - ECG INTERPRET 09/23/2017 [facility] History Chief Complaint Patient presents with [...] ED Physician in the absence of a bank messenger: yes Interpretation: Interpretation: normal Rate: ECG rate [...] tates she has been [email or web address] and had a recent negative test. 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 which may be contribu [...] ED Physician in the absence of a bank messenger: yes Interpretation: Interpretation: normal Rate: ECG rate assessment: normal Rhythm: Rhythm: sinus rhythm Ectopy: Ectopy: none QRS: QRS axis:Normal Conduction: Conduction: normal ST segments: ST segments:Normal T waves: T waves: normal Comments: Not STEMI * Comprehensive Metabolic Panel - (09/23/2017 6:35 PM CDT) Sodium 142 136 - 145 mmol/L [facility] Potassium 4.3 3.5 - 5.5 mmol/L [facility] Chloride 102 98 - 110 mmol/L [facility] Carbon Dioxide 26 20 - 29 mmol/L [facility] Anion Gap 14 5 - 17 [facility] Calcium 9.0 8.4 - 10.5 mg/dL [facility] Glucose 82 65 - 99 mg/dL [facility] Protein Total 7.3 6.0 - 8.3 g/dL [facility] Serum [facility] Albumin 3.4 (L) 3.5 - 5.0 g/dL [facility] Alkaline 47 38 - 126 u/L [facility] Alanine 17 9 - 52 u/L [facility] Aspartate 30 14 - 36 u/L [facility] Bilirubin Total 0.3 0.1 - 1.2 mg/dL [facility] Blood Urea 6 (L) 10 - 20 mg/dL [facility] Nitrogen [facility] Creatinine 0.9 0.7 - 1.2 mg/dL [facility] eGFR Female AA 85 60 - 200 [facility] Comment: COMMUNITY Chronic Kidney Disease less HOSPITAL LAB - than 60 mL/min/1.73 sq.m [facility] Kidney failure less than [place] 15 mL/min/1.73 sq.m eGFR Female 71 60 - 200 [facility] Non-AA Comment: COMMUNITY Chronic Kidney Disease less HOSPITAL LAB - than 60 mL/min/1.73 sq.m [facility] Kidney failure less than [place] 15 mL/min/1.73 sq.m Specimen Blood Performing Organization Address City/[facility]/Zipcode Phone Number [facility] [address] * CBC and Diff - [place] (09/23/2017 6:35 PM CDT) WBC 6.40 4.00 - 11.00 TH/uL [facility] RBC 4.97 4.00 - 5.00 MIL/uL [facility] Hemoglobin 11.5 (L) 12.0 - 15.0 g/dL [facility] Hematocrit 37 36 - 45 % [facility] MCV 74 (L) 80 - 99 fL [facility] MCH 23 (L) 27 - 34 pg [facility] MCHC 31 (L) 32 - 36 % [facility] Platelet Count 306 140 - 400 TH/uL [facility] %Lymphocytes 27 15 - 47 % [facility] %Monocytes 4Comment: The %Monos may 0 - 12 % [facility] include Monocytes, COMMUNITY Eosinophils, Basophils, Blasts HOSPITAL LAB - and other immature white [facility] cells. [place] % Neutrophils 69 45 - 78 % [facility] # Lymphocytes 1.70 1.00 - 3.30 TH/uL [facility] # Monocytes 0.30 0.20 - 0.90 TH/uL [facility] # Granulocytes 4.40 1.70 - 6.80 TH/uL [facility] RDW 14.0 9.0 - 14.5 % [facility] MPV 9.7 9.4 - 12.3 fL [facility] Specimen Blood Performing Organization Address City/State/Zipcode Phone Number [facility] [address] [place] [address], [place] [address] [facility] * Troponin - [place] (09/23/2017 6:35 PM CDT) Troponin <0.05 0.00 - 0.05 ng/mL [facility] Specimen Blood Performing Organization Address City/State/Zipcode Phone Number [facility] [address] [place] [address], [place] [address] [facility] documented in this encounter Visit Diagnoses Diagnosis [...]
--- OUTSIDE RECORDS SUMMARY | 2018-11-02 21:59 | XMS REPORT | Clinical Summary ---
Author Author [facility] Organization [facility] Address Unknown Phone Unavailable Care Team Providers Care Traffic Control Operator Name Role Phone PCP Unavailable Allergies No [...] [email or web address] 2015- COMP Present Advance Directives Patient Dog Barber Explanation Type Date Recorded Health Care Directive
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
--- OUTSIDE RECORDS SUMMARY | 2018-11-02 22:00 | XMS REPORT | Encounter Summary ---
Author Author [facility] Organization [facility] Address Unknown Phone Unavailable Care Team Providers Care Dowel Inspector Name Role Phone PCP Unavailable Reason for [...] Description Date Type [place] [address] [place], [place] [id number] Abdominal pain, unspecified abdominal location (Primary Dx) 08/06/2017 Emergency [facility] [address] [place], [place] [phone] Social History Date Tobacco Use Types Packs/Day [...] Care Everywhere.* ABDOMINAL PAIN, UNKNOWN CAUSE, (FEMALE) (PALESTINIAN) documented in this encounter Medications at Time [...] MD - 08/06/2017 9:50 PM CDT 08/06/2017 [facility] History Chief Complaint Patient presents [...] BASIC META, IONIZED STAT 08/06/2017 [facility] 10:16 PM CDT HOSPITAL CBC AND DIFF (MANUAL DIFF STAT 08/06/2017 IF NECESSARY) 10:13 PM CDT LIVER ASSESSMENT PANEL - STAT 08/06/2017 [facility] 10:05 PM CDT URINALYSIS (INCLUDES STAT 08/06/2017 MICROSCOPIC REVIEW, IF 9:55 PM CDT INDICATED) documented in this encounter Results * CT Abdomen Pelvis w contrast (08/06/2017 10:21 PM CDT) Specimen Impressions Performed At Impression: JOSE Liver and spleen lengths are 21 cm and 14 cm, respectively. Contracted gallbladder. Status post appendectomy. Narrative Performed At Patient: JIGNESH SOLER Sex#:F # 1980 Reilly#:[id number] Location:[facility] ED ED 11-05Accession#: [id number] Procedure Requested:[id number] CT ABDOMEN PELVIS W CONTRAST Reason for Exam:ruq pain, no n/v/d, no fever Exam Ordered:08/06/20172150 Exam Date/Time: Begin exam date/time:57 Reading Site:[facility] CT ABDOMEN AND PELVIS WITH CONTRAST [...] BERNIE SOLER Sex#: F # 1980 Reilly#: [id number] Location: [facility] ED ED 11-05 Procedure Requested: [id number] CT ABDOMEN PELVIS W CONTRAST Reason for Exam: ruq pain, no n/v/d, no fever Exam Ordered: 08/06/20172149 Exam Date/Time: 08/06/20172220 Begin exam date/time: 08/06/20172156 Reading Site: [facility] CT ABDOMEN AND PELVIS WITH CONTRAST [...] gallbladder. Status post appendectomy. Performing Organization Address City/[facility] Phone Number [facility] * Basic [place], Ionized Calcium - [facility] (08/06/2017 10:16 PM CDT) Sodium 140 136 - 145 mmol/L [facility] Potassium 3.7 3.5 - 5.5 mmol/L [facility] Chloride 104 98 - 110 mmol/L [facility] Carbon Dioxide 24 20 - 29 mmol/L [facility] Ionized Calcium 4.9 4.5 - 5.3 mg/dL [facility] Glucose 101 (H) 65 - 99 mg/dL [facility] Blood Urea 13 10 - 20 mg/dL [facility] Creatinine 0.9 0.7 - 1.2 mg/dL [facility] eGFR Female AA 85 60 - 200 [facility] Comment: [facility] Chronic Kidney Disease less HOSPITAL LAB - than 60 mL/min/1.73 sq.m [facility] Kidney failure less than 15 mL/min/1.73 sq.m eGFR Female 71 60 - 200 [facility] Non-AA Comment: [facility]ITY Chronic Kidney Disease less HOSPITAL LAB - than 60 mL/min/1.73 sq.m [facility] Kidney failure less than 15 mL/min/1.73 sq.m Specimen Blood Performing Organization Address City/[facility]/Zipcode Phone Number [facility] [address] [place] [address] HOSPITAL [facility] * CBC and Diff - CH (08/06/2017 10:13 PM CDT) WBC 8.30 4.00 - 11.00 TH/uL [facility] RBC 4.71 4.00 - 5.00 MIL/uL [facility] Hemoglobin 10.9 (L) 12.0 - 15.0 g/dL [facility] Hematocrit 35 (L) 36 - 45 % [facility] MCV 75 (L) 80 - 99 fL [facility] MCH 23 (L) 27 - 34 pg [facility] MCHC 31 (L) 32 - 36 % [facility] RDW 14.3 9.0 - 14.5 % [facility] Platelet Count 344 140 - 400 TH/uL [facility] MPV 9.2 (L) 9.4 - 12.3 fL [facility] %Lymphocytes 26 15 - 47 % [facility] %Monocytes 7Comment: The %Monos may 0 - 12 % [facility] include Monocytes, COMMUNITY Eosinophils, Basophils, Blasts HOSPITAL LAB - and other immature white [facility] cells. % Neutrophils 67 45 - 78 % [facility] # Lymphocytes 2.10 1.00 - 3.30 TH/uL [facility] # Monocytes 0.60 0.20 - 0.90 TH/uL [facility] # Granulocytes 5.60 1.70 - 6.80 TH/uL [facility] Specimen Blood Performing Organization Address City/State/Zipcode Phone Number [facility] [address] [place] [address] HOSPITAL [facility] * Liver Assessment Panel - CH (08/06/2017 10:05 PM CDT) Pathologist [facility] Protein Total 7.5 6.0 - 8.3 g/dL [facility] Albumin 3.5 3.5 - 5.0 g/dL [facility] Alkaline 58 38 - 126 u/L [facility] Phosphatase [facility] Alanine 19 9 - 52 u/L [facility] Amylase 48 25 - 125 u/L [facility] Aspartate 23 14 - 36 u/L [facility] Bilirubin Total 0.5 0.1 - 1.2 mg/dL [facility] Gamma Glutamyl 9 9 - 36 u/L [facility] Specimen Blood Performing Organization Address City/[facility]/Zipcode Phone Number [facility] [address] [place] [address] HOSPITAL [facility] * Urinalysis - (08/06/2017 9:55 PM CDT) Appearance, Yellow [facility] Glucose Urine Negative Negative mg/dL [facility] Bilirubin Urine Negative Negative [facility] Ketones Urine Negative Negative mg/dL [facility] Specific 1.020 1.001 - 1.030 [facility] [place], [place] [facility] Hemoglobin Large (A) Negative [facility] PH Urine 5.5 5.0 - 8.0 [facility] Protein Urine Negative Negative mg/dL [facility] Urobilinogen Negative Negative EU/dL [facility] Nitrite Urine Negative Negative [facility] Leukocyte Negative Negative [facility] Specimen Clean Voided Urine Performing Organization Address City/[facility]/Zipcode Phone Number [facility] [address] [place] [address] [facility] documented in this [...]
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
--- OUTSIDE RECORDS SUMMARY | 2018-11-02 22:00 | XMS REPORT | Encounter Summary ---
Author Author [facility] Organization [facility] Address Unknown Phone Unavailable Care Team Providers Care Quality Assurance Advisor Name Role Phone PCP Unavailable Reason for Visit * Reason Comments Head Injury Encounter Details Care Team Description Date [place] [address] [place] [address] Closed head injury, initial encounter (Primary Dx) 08/23/2017 Emergency [facility] [address] [place] [address] Social History Date Tobacco Use Types Packs/Day [...] sent through Care Everywhere.* Concussion, Coping with (Citizen Of [place]) documented in this encounter ED Notes * Ernesto Santos MD - 08/23/2017 6:36 PM CDT 08/23/2017 [facility] History Chief Complaint Patient presents with [...] At Patient: JIGNESH SOLER Sex#:F # 1980 Reilly#:[id number] Location:[facility] ED ED 04-07Accession#: [id number] Procedure Requested:[id number] CT HEAD WO CONTRAST Reason for Exam:fall [...] BERNIE SOLER Sex#: F # 1980 Reilly#: [id number] Location: [facility] ED ED 04-07 Procedure Requested: [id number] CT HEAD WO CONTRAST Reason for Exam: [...] of intracranial hemorrhage, mass effect, or acute [facility] territorial infarct. 2. No evidence of acute [...] At Patient: JIGNESH SOLER Sex#:F # 1980 Reilly#:[id number] Location:[facility] ED ED 04-07Accession#: [id number] Procedure Requested:[id number] CT CERVICAL SPINE WO CONTRAST Reason for [...] BERNIE SOLER Sex#: F # 1980 Reilly#: [id number] Location: [facility] ED ED 04-07 Procedure Requested: [id number] CT CERVICAL SPINE WO CONTRAST Reason for [...] GENTLY Performing Organization Address City/State/Zipcode Phone Number [facility] documented in this encounter Visit Diagnoses Diagnosis Closed head injury, initial encounter - Primary documented in this encounter
--- OUTSIDE RECORDS SUMMARY | 2018-11-02 22:00 | XMS REPORT | Encounter Summary ---
Author Author [facility] Organization [facility] Address Unknown Phone Unavailable Care Team Providers Care Senior Loan Officer Name Role Phone PCP Unavailable Reason for Visit * Reason Comments Fall Knee Injury Encounter Details Care Team Description Date [place] [address] [place] [address] Contusion of right knee, initial encounter (Primary Dx) 08/13/2017 Emergency [facility] [address] [place], [place] [phone] Social History Date Tobacco Use Types Packs/Day [...] be sent through Care Everywhere.* Bruises (Contusions) (Faroese) * SOFT TISSUE CONTUSION ([place]) * LOWER EXTREMITY CONTUSION ([place]) documented in this encounter Medications at Time [...] MD - 08/13/2017 5:44 PM CDT 08/13/2017 [facility] History Chief Complaint Patient presents with Fall [...] At Patient: JIGNESH GIVENS Sex#:F # 1980 Reilly#:[id number] Location:[facility] ED ED 06-05Accession#: [id number] Procedure Requested:[id number] XR KNEE 4 OR MORE VIEWS RIGHT Reason for Exam:trauma Exam Ordered:08/13/20171738 Exam Date/Time: Begin exam date/time: Reading Site: [facility] Exam: XR KNEE 4 OR MORE [...] BERNIE GIVENS Sex#: F # 1980 Reilly#: [id number] Location: [facility] ED ED 06-05 Procedure Requested: [id number] XR KNEE 4 OR MORE VIEWS RIGHT Reason for Exam: trauma Exam Ordered: 08/13/20171737 Exam Date/Time: 08/13/20171753 Begin exam date/time: 08/13/20171737 Reading Site: [facility] Exam: XR KNEE 4 OR MORE [...]
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
--- OUTSIDE RECORDS SUMMARY | 2018-11-02 22:01 | XMS REPORT | Encounter Summary ---
Author Author [facility] Organization [facility] Address Unknown Phone Unavailable Care Team Providers Care Patent Litigation Associate Name Role Phone PCP Unavailable Encounter Details Care Team Description Date Type Department Lamar Avalos MD [address] [place] [address] [phone] Decreased Movements, Affecting Management of Mother, Antepartum 01/06/2007 Hospital [facility] Encounter [address] [place] [address] Social History Date Tobacco Use Types Packs/Day Years Used Never Assessed Sex Assigned at Date Recorded Female Industry Job Start Date Occupation Not on file Not on file Not on file Travel End Travel History Travel Start No recent travel history available. documented as of this encounter Discharge Summaries * Lamar Avalos MD - 06/05/2013 12:11 PM VICE PRESIDENT TAX REPORT Name: BERNIE GIVENS MRN/Unit #: [id number] Attending Physician: LAMAR AVALOS MD Date of [...] The patient has had one visit at [facility] and one at [facility]. No records are available. PAST MEDICAL HISTORY: Significant for asthma. PAST SURGICAL HISTORY: Unknown. FAMILY HISTORY: Mom with hypertension. SOCIAL HISTORY: No tobacco, alcohol or drug use. MEDICATIONS: Albuterol. ALLERGIES: NO KNOWN DRUG ALLERGY. REVIEW OF SYSTEMS: As above, or otherwise negative. PHYSICAL EXAMINATION: VITALS: 102/53 blood pressure, pulse of 87, heart tones 130s with moderate variability and positive accelerations. [place] is quiet. SVE is closed, thick and [...] trauma past six-hour window. heart tones reassuring. [place] quiet. Cervix closed, thick and high. Discharge home with return precautions. Call for care appointment. Discussed the above with Dr. Radha Perez. Lamar Avalos MD Dictated By: Edilia Kong D.O. cc: PRESIDENT TAX documented in this encounter Plan of Treatment Not on filedocumented as of this encounter Visit Diagnoses Diagnosis Decreased movements, affecting management of mother, antepartum documented in this encounter
--- OUTSIDE RECORDS SUMMARY | 2018-11-02 22:01 | XMS REPORT | Encounter Summary ---
Author Author [facility] Organization [facility] Address Unknown Phone Unavailable Care Team Providers Care Thermostat Machine Tender Name Role Phone PCP Unavailable Reason for Visit * Reason Comments Fall fell on concrete from standing position, hit back of head and back, no LOC, c/o head and lower back pain Encounter Details Care Team Description Date Type Department Fall, initial encounter (Primary Dx); Head injury, initial encounter; Acute low back pain without sciatica, unspecified back pain laterality 07/10/2017 Emergency [facility] [address] [place] [address] Social History Date Tobacco Use Types Packs/Day [...] Care Everywhere.* BACK PAIN (ACUTE OR CHRONIC) (BELGIAN) * FALL, MECHANICAL ([facility]ELGIAN) documented in this encounter ED Notes * Ernesto Castro RN - 07/10/2017 9:58 PM CDT Pt DC'D from ED, vss, ambulated from room without difficulty, A&Ox4, discharge paperwork given to pt and addressed any questions needed, pt stated understanding of dc plan. * Nina Stern PA-C - 07/10/2017 8:55 PM CDT 07/10/2017 [facility] History Chief Complaint Patient presents with Fall [...] about 30 mins ago with no tx SPORTS TEACHER PMH: neg Meds: none Allergies: compazine The [...] At Patient: JIGNESH SOLER Sex#:F # 1980 Reilly#:[id number] Location:[facility] ED BED-17Accession#: [id number] Procedure Requested:[id number] XR LUMBAR SPINE 2 OR 3 VIEWS Reason for Exam:midline pain after ground level fall Exam Ordered: Exam Date/Time: Begin exam date/time: Reading Site: [facility] DATE:07/10/2017 9:45 PM EXAM:XR LUMBAR SPINE 2 OR 3 VIEWS INDICATION:midline pain after ground level fall FINDINGS:Lumbar spine is unremarkable.No fracture or alignment abnormality present.Intervertebral disc height is well maintained. No significant degenerative change. Procedure Note Interface, Rad Results In - 07/10/2017 9:48 PM CDT Patient: BERNIE SOLER Sex#: F # 1980 Reilly#: [id number] Location: [facility] ED BED-17 Procedure Requested: [id number] XR LUMBAR SPINE 2 OR 3 VIEWS Reason for Exam: midline pain after ground level fall Exam Ordered: 07/10/20172024 Exam Date/Time: 07/10/20172130 Begin exam date/time: 07/10/20172119 Reading Site: [facility] DATE: 07/10/2017 9:45 PM EXAM: XR LUMBAR SPINE 2 OR 3 VIEWS INDICATION: midline pain after ground level fall FINDINGS: Lumbar spine is unremarkable. No fracture or alignment abnormality present. Intervertebral disc height is well maintained. No significant degenerative change. IMPRESSION Normal lumbar spine. Performing Organization Address City/[facility] Phone Number JOSE * Urine Test (07/10/2017 8:50 PM CDT) [facility] Urine NegativeComment: Specific Negative [place] gravity is <1.005; dilute [facility] urines may cause false LAB negative results. Specimen Urine Performing Organization Address City/[facility]/Zipcode Phone Number [facility] [address] [place], [place] [id number] [facility] documented in this encounter Visit Diagnoses [...]
--- OUTSIDE RECORDS SUMMARY | 2018-11-02 22:01 | XMS REPORT | Encounter Summary ---
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
--- OUTSIDE RECORDS SUMMARY | 2018-11-02 22:01 | XMS REPORT | Encounter Summary ---
Author Author [facility] Organization [facility] Address Unknown Phone Unavailable Care Team Providers Care Allergist Name Role Phone PCP Unavailable Reason for Visit * Reason Comments Pain Pain right scapula/rib area at work, reached into overhead bin and felt pop. Then pain shot down right side. Encounter Details Care Team Description Date Type Department Rod Griffin MD [address] [place], [place] [id number] Back strain, initial encounter (Primary Dx) 11/05/2015 Emergency [facility] [address] [place] [address] Social History Date Tobacco Use Types Packs/Day [...] Numbness in the groin or genital area [phone] [employer] [place] [address] 469 7. All rights reserved. This information is [...] MD - 11/05/2015 9:01 PM CDT 11/05/2015 [facility] History Chief Complaint Patient presents with Pain [...] size. Skeletal structures appear intact. Reading Site: [facility] I have reviewed all of the labs [...] size. Skeletal structures appear intact. Reading Site: [facility] Narrative Performed At Patient: JIGNESH GIVENS Sex#:Earnestine # 1980 Reilly#:[id number] Location:[facility] ED [place]-09Accession#: [id number] Procedure Requested:[id number] XR CHEST SINGLE VIEW FRONTAL Reason for Exam:Right-sided chest pain Exam Ordered: Exam Date/Time: Begin exam date/time: XR CHEST SINGLE VIEW FRONTAL Indication:Right-sided chest pain Exam Date: 11/05/2015 9:11 PM Procedure Note Interface, Rad Results In - 11/05/2015 9:24 PM CDT Patient: BERNIE GIVENS Sex#: F # 1980 Reilly#: [id number] Location: [facility] ED [place]-09 Procedure Requested: [id number] XR CHEST SINGLE VIEW FRONTAL Reason for Exam: Right-sided chest pain Exam Ordered: 11/05/20152101 Exam Date/Time: 11/05/20152110 Begin exam date/time: 11/05/20152105 XR CHEST SINGLE VIEW FRONTAL Indication: Right-sided chest pain Exam Date: 11/05/2015 9:11 PM IMPRESSION Impression: Reduced lung volumes with central pulmonary vascular crowding. No consolidation or pleural effusion. No pneumothorax. Normal heart size. Skeletal structures appear intact. Reading Site: [facility] Performing Organization Address City/State/Zipcode Phone Number MCKESSON [...]
--- OUTSIDE RECORDS SUMMARY | 2018-11-02 22:01 | XMS REPORT | Encounter Summary ---
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 states hx of migraines and feels the same. nausea/lightsens. Encounter Details Care Team Description Date Type Department Mc Cherry DO [address] [place] [address] [phone] Nonintractable migraine, unspecified migraine type (Primary Dx) 08/14/2015 Emergency [facility] [address] [place] [address] Social History Date Tobacco Use Types Packs/Day [...] of frozen vegetables. Apply this to your roman catholic or other pain site. Drink fluids. If [...] attack the migraine's root causes (migraine-specific medications). 0412-5231 [employer]. [address] [place] [address] 0826 7. All rights reserved. This information is [...] DO - 08/14/2015 4:38 PM CDT 08/14/2015 [facility] History Chief Complaint Patient presents with [...] 1. Nonintractable migraine, unspecified migraine type [facility] [employer] [address] [facility] [address] In 3 days New Prescriptions No medications [...]
--- OUTSIDE RECORDS SUMMARY | 2018-11-02 22:01 | XMS REPORT | Encounter Summary ---
Author Author [facility] Organization [facility] Address Unknown Phone Unavailable Care Team Providers Care Distance Learning Technician Name Role Phone PCP Unavailable Reason for Visit * Reason Comments Ankle Pain Pt reports falling down stairs one hour prior to arrival right ankle pain denies hitting head or LOC Encounter Details Care Team Description Date Type Department Belén Comer Jr., MD [address] [place] [address] [phone] Ankle sprain, right, initial encounter (Primary Dx); Foot sprain, right, initial encounter 08/26/2015 [place] [address] Social History Date Tobacco Use Types Packs/Day [...] blue, numb or tingly Re-injure your ankle 9417-0120 [employer] [address] [place] [address], [place] [address] 7. All rights reserved. This information is [...] purpose. (Crutches can be rented at many [employer] or surgical/orthopedic supply stores). You may be [...] Toes become cold, blue, numb, or tingly 4705-7941 [employer] [address] [place] [address] 046 7. All rights reserved. This information is [...] MD - 08/26/2015 1:01 PM CDT 08/26/2015 [facility] History Chief Complaint Patient presents with Ankle [...] needed for weightbearing as tolerated on the [facility] lower extremity. She was also given a [...] At Patient: JIGNESH GIVENS Sex#:Earnestine # 1980 Reilly#:[id number] Location:[facility] [place]-01Accession#: [id number] Procedure Requested:[id number] XR FOOT MIN 3 VIEWS RIGHT Reason for Exam:fall, dorsal midfoot tenderness Exam Ordered:08/26/20151204 Check-in Date/Time:08/26/20151219 XR FOOT MIN 3 VIEWS RIGHT Date:08/26/2015 12:19 PM History:fall, dorsal midfoot tenderness, trauma, pain Exam Interpretation:[facility] Findings:No comparison exams. Bones appear mildly demineralized. Osseous structures and articulations appear intact without displaced fracture or destructive lesion. Soft tissues appear normal. Procedure Note Interface, Rad Results In - 08/26/2015 12:50 PM CDT Patient: BERNIE GIVENS Sex#: F # 1980 Reilly#: [id number] Location: [facility] [place]-01 Procedure Requested: [id number] XR FOOT MIN 3 VIEWS RIGHT Reason for Exam: fall, dorsal midfoot tenderness Exam Ordered: 08/26/2015 1204 Check-in Date/Time: 08/26/2015 1219 XR FOOT MIN 3 VIEWS RIGHT Date: 08/26/2015 12:19 PM History: fall, dorsal midfoot tenderness, trauma, pain Exam Interpretation: [facility] Findings: No comparison exams. Bones appear mildly demineralized. Osseous structures and articulations appear intact without displaced fracture or destructive lesion. Soft tissues appear normal. IMPRESSION: 1. Intact right foot with possible mild osteopenia. Performing Organization Address [facility] Phone Number MCKESCLARA * XR Ankle min 3 views right (08/26/2015 12:18 PM CDT) Specimen Impressions Performed At Impression: JOSE Normal right ankle. Narrative Performed At Patient: JIGNESH GIVENS Sex#:Earnestine # 1980 Reilly#:[id number] Location:[facility] [place]-01Accession#: [id number] Procedure Requested:[id number] XR ANKLE MIN 3 VIEWS RIGHT Reason [...] BERNIE GIVENS Sex#: F # 1980 Reilly#: [id number] Location: [facility] [place]-01 Procedure Requested: [id number] XR ANKLE MIN 3 VIEWS RIGHT Reason [...] Impression: Normal right ankle. Performing Organization Address [facility] Phone Number JOSE documented in this encounter [...]
--- OUTSIDE RECORDS SUMMARY | 2018-11-02 22:01 | XMS REPORT | Encounter Summary ---
Author Author [facility] Organization [facility] Address Unknown Phone Unavailable Care Team Providers Care Dye Operator Name Role Phone PCP Unavailable Encounter Details Care Team Description Date Type Department Jose Bagley DO [address] [place] [address] [phone] Tacos Toro MD No Forwarding Address Infections of Genitourinary Tract, Previous Condition 05/08/2007 [facility] [address] [place] [address] Social History Date Tobacco Use Types Packs/Day [...] Diagnosis WET PREP Routine 05/08/2007 2:00 PM INLAYER CULTURE, GENITAL Routine 05/08/2007 2:00 PM INLAYER NEISSERIA GONORRHOEAE PCR Routine 05/08/2007 2:00 PM INLAYER CHLAMYDIA PCR Routine 05/08/2007 2:00 PM INLAYER URINALYSIS (INCLUDES Routine 05/08/2007 MICROSCOPIC REVIEW, IF 1:30 PM INLAYER INDICATED) CULTURE, URINE Routine 05/08/2007 1:30 PM INLAYER documented in this encounter Results * Wet Prep (05/08/2007 2:00 PM INLAYER) Specimen Vaginal Narrative Performed At REPORT [employer] [id number] F26 YRS ER PARASITOLOGY PROCEDURE: ORDERABLE WET PREP COLLECTED: 05/08/071399 SOURCE: VAGINA RECEIVED: 05/08/071407 CERVIX STARTED:05/08/071413 FINAL REPORT FINAL REPORT 05/08/071413 Clue cells seen No TRICHOMONAS VAGINALIS seen No YEAST seen Performing Organization Address [facility] Phone Number RL [address] [place] [address] [employer] * Chlamydia PCR (05/08/2007 2:00 PM INLAYER) Source [facility] Chlamydia NotDetec Not[employer] trachomatis PCR Specimen Performing Organization Address [facility] Phone Number RL [address] [place] [address] [employer] * Neisseria gonorrhoeae PCR (05/08/2007 2:00 PM INLAYER) Source CERVIX SUNQUEST Neisseria NotDetec Not[employer] gonorrhoeae PCR Specimen Performing Organization [facility] Phone Number RL [address] [place] [address] [employer] * Culture, Genital (05/08/2007 2:00 PM INLAYER) Specimen Vaginal Narrative Performed At REPORT [employer] [id number] F26 YRS ER BACTERIOLOGY PROCEDURE: GENITAL CULTURE @COLLECTED: 05/08/071399 SOURCE: VAGINAL RECEIVED: 05/08/071417 VAG STARTED:05/08/07 144 FINAL REPORT FINAL REPORT 05/11/07 0735 Moderate mixed vaginal marcela isolated No NEISSERIA GONORRHOEAE isolated on culture. No beta STREPTOCOCCUS group B isolated on culture @=GENITAL CULTPerformed [facility] Performing Organization Address [facility]/[employer] Phone Number RL [address] [place] [address] [employer] * Urinalysis (05/08/2007 1:30 PM INLAYER) Appearance, YELLOW [facility] Urine Specific 1.015 <1.030 [facility] Dulzura, UA PH Urine 7.5 5.0 - 8.0 [facility] Hemoglobin NEGATIVE NEGATIVE [facility] Urine Ketones Urine NEGATIVE NEGATIVE [facility] Glucose Urine NEGATIVE NEGATIVE [facility] Protein Urine NEGATIVE NEGATIVE [facility] Qual Leukocyte NEGATIVE NEGATIVE [facility] Esterase Urobilinogen NEGATIVE NEGATIVE [facility] Urine Bilirubin Urine NEGATIVE NEGATIVE [facility]QUEST Specimen Performing Organization Address [facility] Phone Number SLRL [address] [place] [address] SUNQUEST * Culture, Urine (05/08/2007 1:30 PM INLAYER) Specimen Urine Narrative Performed At REPORT [employer] [id number] F25 [facility] BACTERIOLOGY PROCEDURE: URINE CULTURECOLLECTED: 05/08/07 1330 SOURCE: URINE RECEIVED: 05/08/07 1356 CLEAN VOIDED URINE STARTED:05/08/07 1407 FINAL REPORT FINAL REPORT 05/10/07 1247 Three or more bacterial species isolated from urine usually indicates superficial or fecal contamination. Submission of another specimen is suggested. Performing Organization Address [facility] Phone Number SLRL [address] [place] [address] SUNQUEST documented in this encounter Visit Diagnoses Diagnosis Infections of genitourinary tract, condition or complication(646.64) Infections of genitourinary tract, condition or complication documented in this encounter
--- OUTSIDE RECORDS SUMMARY | 2018-11-02 22:01 | XMS REPORT | Encounter Summary ---
Author Author [facility] Organization [facility] Address Unknown Phone Unavailable Care Team Providers Care Utility Sales Representative Name Role Phone PCP Unavailable Reason for [...] Date Type Department Mc Cherry DO [address] [place] [address] [phone] Paraspinal muscle spasm (Primary Dx) 11/07/2015 Emergency [facility] [address] [place] [address] Social History Date Tobacco Use Types Packs/Day [...] supplements. Getting regular exercise. Stretching regularly. Taking kumr-wdp-flrbtpu medications such as ibuprofen or naproxen. Taking a prescription muscle relaxant. [phone] [employer]. [address] [place] [address] 098 7. All rights reserved. This information is [...] smell coming from the injured body part. 7676-4076 [employer]. [address] [place] [address] 7. All rights reserved. This information is [...] mackey - 11/07/2015 5:51 PM CDT 11/07/[address] [facility] History Chief Complaint Patient presents with Arm [...] CT(R) 1. 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
--- OUTSIDE RECORDS SUMMARY | 2018-11-02 22:01 | XMS REPORT | Encounter Summary ---
Author Author [facility] Organization [facility] Address Unknown Phone Unavailable Care Team Providers Care Actuarial Science Professor Name Role Phone PCP Unavailable Encounter Details Care Team Description Date Type Department 09/06/2015 Emergency [facility] [address] [place] [address] Social History Date Tobacco Use Types Packs/Day [...]
--- OUTSIDE RECORDS SUMMARY | 2018-11-02 22:11 | XMS REPORT | Continuity of Care Document ---
Author Organization Unknown Address Unknown Phone Unavailable Allergies Active Description Code Type Severity Reaction Onset Reported/Identified Relationship to Patient Clinical Status Yes No Known Drug Allergies [id number] Drug Allergy Unknown N/A 07/27/2010 Yes doxepin [...] lbs) [reported] 06/17/2011 784.0 headache 06/17/2011 BETYJOAO FALCON APRN A 285.9 ANEMIA 06/17/2011 BETY RIVERAJOAO Bal A 780.79 FATIGUE 06/17/2011 BETY RIVERANKERIJOAO A [...] ALBERTO, JESSICA Sabillon 780.79 FATIGUE 06/17/2011 RICK ALBERTO, JESSICA A [...] ALBERTO, JESSICA Sabillon 780.79 FATIGUE 06/17/2011 RICK ALBERTO, JESSICA Sabillon [...] BALTA PEDRAZA MD 784.0 headache 06/17/2011 VA DIRECTOR SUPPLIER QUALITY, MISA 285.9 ANEMIA 06/17/2011 VA DIRECTOR SUPPLIER QUALITY, MISA 780.79 FATIGUE 06/17/2011 VA DIRECTOR SUPPLIER QUALITY, MISA 783.1 recent weight gain (___ lbs) [reported] 06/17/2011 VA DIRECTOR SUPPLIER QUALITY, MISA 784.0 headache 06/17/2011 VA DIRECTOR SUPPLIER QUALITY, MISA 285.9 ANEMIA 06/17/2011 VA DIRECTOR SUPPLIER QUALITY, MISA 780.79 FATIGUE 06/17/2011 VA DIRECTOR SUPPLIER QUALITY, MISA 783.1 recent weight gain (___ lbs) [reported] 06/17/2011 VA DIRECTOR SUPPLIER QUALITY, MISA 784.0 headache 06/17/2011 WHITE DDS, JEREMIE Pina 285.9 ANEMIA 06/17/2011 WHITE DDS, JEREMIE Pina 780.79 FATIGUE 06/17/2011 WHITE DDS, JEREMIE D 783.1 recent weight gain (___ lbs) [reported] 06/17/2011 WHITE DDS, JEREMIE D 784.0 headache 06/17/2011 VA DIRECTOR SUPPLIER QUALITY, MISA 285.9 ANEMIA 06/17/2011 VA DIRECTOR SUPPLIER QUALITY, MISA 780.79 FATIGUE 06/17/2011 VA DIRECTOR SUPPLIER QUALITY, MISA 783.1 recent weight gain (___ lbs) [reported] 06/17/2011 VA DIRECTOR SUPPLIER QUALITY, MISA 784.0 headache 06/17/2011 VA DIRECTOR SUPPLIER QUALITY, MISA 285.9 ANEMIA 06/17/2011 VA DIRECTOR SUPPLIER QUALITY, MISA 780.79 FATIGUE 06/17/2011 VA DIRECTOR SUPPLIER QUALITY, MISA 783.1 recent weight gain (___ lbs) [reported] 06/17/2011 VA DIRECTOR SUPPLIER QUALITY, MISA 784.0 headache 06/17/2011 MADL DIRECTOR SUPPLIER QUALITY, DARIAN L 285.9 ANEMIA 06/17/2011 MADL DIRECTOR SUPPLIER QUALITY, DARIAN L 780.79 FATIGUE 06/17/2011 MADL DIRECTOR SUPPLIER QUALITY, DARIAN L 783.1 recent weight gain (___ lbs) [reported] 06/17/2011 MADL DIRECTOR SUPPLIER QUALITY, DARIAN L 784.0 headache 06/17/2011 LEONARDO DO, [...] LEONARDO DO, NORA K 784.0 headache 06/17/2011 VA DIRECTOR SUPPLIER QUALITY, MISA 285.9 ANEMIA 06/17/2011 VA DIRECTOR SUPPLIER QUALITY, MISA 780.79 FATIGUE 06/17/2011 VA DIRECTOR SUPPLIER QUALITY, MISA 783.1 recent weight gain (___ lbs) [reported] 06/17/2011 VA DIRECTOR SUPPLIER QUALITY, MISA 784.0 headache 06/17/2011 MADL DIRECTOR SUPPLIER QUALITY, DARIAN L 285.9 ANEMIA 06/17/2011 MADL DIRECTOR SUPPLIER QUALITY, DARIAN L 780.79 FATIGUE 06/17/2011 MADL DIRECTOR SUPPLIER QUALITY, DARIAN L 783.1 recent weight gain (___ lbs) [reported] 06/17/2011 MADL DIRECTOR SUPPLIER QUALITY, DARIAN L 784.0 headache 06/17/2011 JESSICA CABRERA PHD 285.9 ANEMIA 06/17/2011 JESSICA CABRERA PHD 780.79 FATIGUE 06/17/2011 JESSICA CABRERA PHD 783.1 recent weight gain (___ lbs) [reported] 06/17/2011 JESSICA CABRERA PHD 784.0 headache 06/17/2011 MADL DIRECTOR SUPPLIER QUALITY, DARIAN L 285.9 ANEMIA 06/17/2011 MADL DIRECTOR SUPPLIER QUALITY, DARIAN L 780.79 FATIGUE 06/17/2011 MADL DIRECTOR SUPPLIER QUALITY, DARIAN L 783.1 recent weight gain (___ lbs) [reported] 06/17/2011 MADL DIRECTOR SUPPLIER QUALITY, DARIAN L 784.0 headache 06/17/2011 VA DIRECTOR SUPPLIER QUALITY, MISA 285.9 ANEMIA 06/17/2011 VA DIRECTOR SUPPLIER QUALITY, MISA 780.79 FATIGUE 06/17/2011 VA DIRECTOR SUPPLIER QUALITY, MISA 783.1 recent weight gain (___ lbs) [reported] 06/17/2011 VA DIRECTOR SUPPLIER QUALITY, MISA 784.0 headache 06/17/2011 JESSICA CABRERA PHD 285.9 ANEMIA 06/17/2011 JESSICA CABRERA PHD 780.79 FATIGUE 06/17/2011 JESSICA CABRERA PHD 783.1 recent weight gain (___ lbs) [reported] 06/17/2011 JESSICA CABRERA PHD 784.0 headache 06/17/2011 VA DIRECTOR SUPPLIER QUALITY, MISA 285.9 ANEMIA 06/17/2011 VA DIRECTOR SUPPLIER QUALITY, MISA 780.79 FATIGUE 06/17/2011 VA DIRECTOR SUPPLIER QUALITY, MISA 783.1 recent weight gain (___ lbs) [reported] 06/17/2011 VA DIRECTOR SUPPLIER QUALITY MISA 784.0 headache 06/17/2011 MADL DIRECTOR SUPPLIER QUALITY, DARIAN L 285.9 ANEMIA 06/17/2011 MADL DIRECTOR SUPPLIER QUALITY, DARIAN L 780.79 FATIGUE 06/17/2011 MADL DIRECTOR SUPPLIER QUALITY, DARIAN L 783.1 recent weight gain (___ lbs) [reported] 06/17/2011 MADL DIRECTOR SUPPLIER QUALITY, DARIAN L 784.0 headache 06/17/2011 FLOYD DIRECTOR SUPPLIER QUALITY, ANGEL R 285.9 ANEMIA 06/17/2011 FLOYD DIRECTOR SUPPLIER QUALITY, ANGEL R 780.79 FATIGUE 06/17/2011 FLOYD DIRECTOR SUPPLIER QUALITY, ANGEL R 783.1 recent weight gain (___ lbs) [reported] 06/17/2011 FLOYD DIRECTOR SUPPLIER QUALITY, ANGEL R 784.0 headache 06/17/2011 MADL DIRECTOR SUPPLIER QUALITY, DARIAN L 285.9 ANEMIA 06/17/2011 MADL DIRECTOR SUPPLIER QUALITY, DARIAN L 780.79 FATIGUE 06/17/2011 MADL DIRECTOR SUPPLIER QUALITY, DARIAN L 783.1 recent weight gain (___ lbs) [reported] 06/17/2011 MADL DIRECTOR SUPPLIER QUALITY, DARIAN L 784.0 headache 06/17/2011 VA DIRECTOR SUPPLIER QUALITY, MISA 285.9 ANEMIA 06/17/2011 VA DIRECTOR SUPPLIER QUALITY, MISA 780.79 FATIGUE 06/17/2011 VA DIRECTOR SUPPLIER QUALITY, MISA 783.1 recent weight gain (___ lbs) [reported] 06/17/2011 VA DIRECTOR SUPPLIER QUALITY, MISA 784.0 headache 06/17/2011 MADL DIRECTOR SUPPLIER QUALITY, DARIAN L 285.9 ANEMIA 06/17/2011 MADL DIRECTOR SUPPLIER QUALITY, DARIAN L 780.79 FATIGUE 06/17/2011 MADL DIRECTOR SUPPLIER QUALITY, DARIAN L 783.1 recent weight gain (___ lbs) [reported] 06/17/2011 DARIAN HELTON APRN 784.0 headache 06/17/2011 VABUD RIVERAN, MISA 285.9 ANEMIA 06/17/2011 VA RIVERAN, MISA 780.79 FATIGUE 06/17/2011 VA COOPER, MISA 783.1 recent weight gain (___ lbs) [reported] 06/17/2011 JAVIER DE DIOS APRNETTE 784.0 headache 06/17/2011 285.9 ANEMIA 06/17/2011 780.79 FATIGUE 06/17/2011 783.1 recent weight gain (___ lbs) [reported] 06/17/2011 784.0 headache 06/21/2011 JAYME COOPERYANYESTELLA Moon 296.32 MO DEPRESSIVE RECURRENT MODERATE 06/21/2011 296.32 [...] 296.32 MO DEPRESSIVE RECURRENT MODERATE 06/21/2011 VA DIRECTOR SUPPLIER QUALITY, MISA 296.32 MO DEPRESSIVE RECURRENT MODERATE 06/21/2011 VA DIRECTOR SUPPLIER QUALITY, MISA 296.32 MO DEPRESSIVE RECURRENT MODERATE 06/21/2011 WHITE DDS, JEREMIE Pina 296.32 MO DEPRESSIVE RECURRENT MODERATE 06/21/2011 VA DIRECTOR SUPPLIER QUALITY, MISA 296.32 MO DEPRESSIVE RECURRENT MODERATE 06/21/2011 VA DIRECTOR SUPPLIER QUALITY, MISA 296.32 MO DEPRESSIVE RECURRENT MODERATE 06/21/2011 MADL DIRECTOR SUPPLIER QUALITY, DARIAN L 296.32 MO DEPRESSIVE RECURRENT MODERATE 06/21/2011 LEONARDO DO NORA K 296.32 MO DEPRESSIVE RECURRENT MODERATE 06/21/2011 LEONARDO DO NORA K 296.32 MO DEPRESSIVE RECURRENT MODERATE 06/21/2011 LEONARDO DO NORA K 296.32 MO DEPRESSIVE RECURRENT MODERATE 06/21/2011 VA DIRECTOR SUPPLIER QUALITY, MISA 296.32 MO DEPRESSIVE RECURRENT MODERATE 06/21/2011 MADL DIRECTOR SUPPLIER QUALITY, DARIAN L 296.32 MO DEPRESSIVE RECURRENT MODERATE 06/21/2011 RICK ALBERTO, JESSICA Sabillon 296.32 MO DEPRESSIVE RECURRENT MODERATE 06/21/2011 MADSandor DIRECTOR SUPPLIER QUALITY, DARIAN L 296.32 MO DEPRESSIVE RECURRENT MODERATE 06/21/2011 VA COOPER MISA 296.32 MO DEPRESSIVE RECURRENT MODERATE 06/21/2011 RICK ALBERTO, JESSICA Sabillon 296.32 MO DEPRESSIVE RECURRENT MODERATE 06/21/2011 VA DIRECTOR SUPPLIER QUALITY, MISA 296.32 MO DEPRESSIVE RECURRENT MODERATE 06/21/2011 MADL DIRECTOR SUPPLIER QUALITY, DARIAN L 296.32 MO DEPRESSIVE RECURRENT MODERATE 06/21/2011 FLOYD COOPER ANGEL R 296.32 MO DEPRESSIVE RECURRENT MODERATE 06/21/2011 MADL DIRECTOR SUPPLIER QUALITY, DARIAN L 296.32 MO DEPRESSIVE RECURRENT MODERATE 06/21/2011 VA DIRECTOR SUPPLIER QUALITY, MISA 296.32 MO DEPRESSIVE RECURRENT MODERATE 06/21/2011 MADL DIRECTOR SUPPLIER QUALITY, DARIAN L 296.32 MO DEPRESSIVE RECURRENT MODERATE 06/21/2011 VA DIRECTOR SUPPLIER QUALITY, MISA 296.32 MO DEPRESSIVE RECURRENT MODERATE 06/21/2011 296.32 MO DEPRESSIVE RECURRENT MODERATE 06/27/2011 Ot 784.0 HEADACHE 06/29/2011 Ot 845.00 SPRAIN OF ANKLE NOS 06/29/2011 Ot 924.20 CONTUSION OF FOOT 06/29/2011 Ot 959.7 LOWER LEG INJURY NOS 06/29/2011 Ot E000.8 OTHER EXTERNAL CAUSE STATUS 06/29/2011 Ot E849.[address]/HIGHWAY 06/29/2011 Ot E928.9 ACCIDENT NOS 07/02/2011 JAYME COOPER BALBINA R 845.00 UNSPECIFIED SITE OF ANKLE SPRAIN [...] UNSPECIFIED SITE OF ANKLE SPRAIN 07/02/2011 LEONARDO DONORA K 845.00 UNSPECIFIED SITE OF ANKLE SPRAIN 07/02/2011 BALTA PEDRAZA MD 845.00 UNSPECIFIED SITE OF ANKLE SPRAIN 07/02/2011 VA DIRECTOR SUPPLIER QUALITY, MISA 845.00 UNSPECIFIED SITE OF ANKLE SPRAIN 07/02/2011 VA DIRECTOR SUPPLIER QUALITY, MISA 845.00 UNSPECIFIED SITE OF ANKLE SPRAIN 07/02/2011 JEREMIE ALEX DDS 845.00 UNSPECIFIED SITE OF ANKLE SPRAIN 07/02/2011 VA DIRECTOR SUPPLIER QUALITY, MISA 845.00 UNSPECIFIED SITE OF ANKLE SPRAIN 07/02/2011 VA DIRECTOR SUPPLIER QUALITY, MISA 845.00 UNSPECIFIED SITE OF ANKLE SPRAIN 07/02/2011 MADL DIRECTOR SUPPLIER QUALITY, DARIAN L 845.00 UNSPECIFIED SITE OF ANKLE SPRAIN 07/02/2011 LEONARDO DOTREVORA K 845.00 UNSPECIFIED SITE OF ANKLE SPRAIN 07/02/2011 LEONARDO DOTREVORA K 845.00 UNSPECIFIED SITE OF ANKLE SPRAIN 07/02/2011 LEONARDO DOTREVORA K 845.00 UNSPECIFIED SITE OF ANKLE SPRAIN 07/02/2011 VA DIRECTOR SUPPLIER QUALITY, MISA 845.00 UNSPECIFIED SITE OF ANKLE SPRAIN 07/02/2011 MADL KENNETH DARIAN L 845.00 UNSPECIFIED SITE OF ANKLE SPRAIN 07/02/2011 RICK ALBERTO, JESSICA Sabillon 845.00 UNSPECIFIED SITE OF ANKLE SPRAIN 07/02/2011 MADL DIRECTOR SUPPLIER QUALITY, DARIAN L 845.00 UNSPECIFIED SITE OF ANKLE SPRAIN 07/02/2011 VA DIRECTOR SUPPLIER QUALITY, MISA 845.00 UNSPECIFIED SITE OF ANKLE SPRAIN 07/02/2011 RICK ALBERTO, JESSICA Sabillon 845.00 UNSPECIFIED SITE OF ANKLE SPRAIN 07/02/2011 VA DIRECTOR SUPPLIER QUALITY, MISA 845.00 UNSPECIFIED SITE OF ANKLE SPRAIN 07/02/2011 MADL DIRECTOR SUPPLIER QUALITY, DARIAN L 845.00 UNSPECIFIED SITE OF ANKLE SPRAIN 07/02/2011 ANGEL BARRIENTOS APRN 845.00 UNSPECIFIED SITE OF ANKLE SPRAIN 07/02/2011 MADL DIRECTOR SUPPLIER QUALITY, DARIAN L 845.00 UNSPECIFIED SITE OF ANKLE SPRAIN 07/02/2011 MISA DE DIOS APRN 845.00 UNSPECIFIED SITE OF ANKLE SPRAIN 07/02/2011 DARIAN HELTON APRN 845.00 UNSPECIFIED SITE OF ANKLE SPRAIN [...] ANXIETY STATE UNSPECIFIED 07/11/2011 JOAO ALBERT APRN 300.00 ANXIETY STATE UNSPECIFIED 07/11/2011 BRIANDA [place] APRN 300.00 ANXIETY STATE UNSPECIFIED 07/11/2011 RICK ALBERTO, JESSICA Sabillon 300.00 ANXIETY STATE UNSPECIFIED 07/11/2011 RICK ALBERTO, JESSICA A 300.00 ANXIETY STATE UNSPECIFIED 07/11/2011 RICK PHD, JESSICA Sabillon 300.00 ANXIETY STATE UNSPECIFIED 07/11/2011 BRIANDA [place] APRN 300.00 ANXIETY STATE UNSPECIFIED 07/11/2011 RICK PHD, JESSICA A 300.00 ANXIETY STATE UNSPECIFIED 07/11/2011 DOMINIC BAL MD 300.00 ANXIETY STATE UNSPECIFIED 07/11/2011 DOMINIC BAL MD 300.00 ANXIETY STATE UNSPECIFIED 07/11/2011 RICK PHD, JESSICA A 300.00 ANXIETY STATE UNSPECIFIED 07/11/2011 BRIANDA [place] APRN 300.00 ANXIETY STATE UNSPECIFIED 07/11/2011 NORA LEONARDO DO 300.00 ANXIETY STATE UNSPECIFIED 07/11/2011 LEONARDO DO, NORA K 300.00 ANXIETY STATE UNSPECIFIED 07/11/2011 LEONARDO DO, NORA K 300.00 ANXIETY STATE UNSPECIFIED 07/11/2011 MILO SEYMOUR, BALTA 300.00 ANXIETY STATE UNSPECIFIED 07/11/2011 VA DIRECTOR SUPPLIER QUALITY, MISA 300.00 ANXIETY STATE UNSPECIFIED 07/11/2011 VA DIRECTOR SUPPLIER QUALITY, MISA 300.00 ANXIETY STATE UNSPECIFIED 07/11/2011 ISAI DDS, JEREMIE Pina 300.00 ANXIETY STATE UNSPECIFIED 07/11/2011 VA DIRECTOR SUPPLIER QUALITY, MISA 300.00 ANXIETY STATE UNSPECIFIED 07/11/2011 VA DIRECTOR SUPPLIER QUALITY, MISA 300.00 ANXIETY STATE UNSPECIFIED 07/11/2011 MADL DIRECTOR SUPPLIER QUALITY, DARIAN L 300.00 ANXIETY STATE UNSPECIFIED 07/11/2011 LEONARDO DO, NORA K 300.00 ANXIETY STATE UNSPECIFIED 07/11/2011 LEONARDO DO, NORA K 300.00 ANXIETY STATE UNSPECIFIED 07/11/2011 LEONARDO DO, NORA K 300.00 ANXIETY STATE UNSPECIFIED 07/11/2011 VA DIRECTOR SUPPLIER QUALITY, MISA 300.00 ANXIETY STATE UNSPECIFIED 07/11/2011 MADL DIRECTOR SUPPLIER QUALITY, DARIAN L 300.00 ANXIETY STATE UNSPECIFIED 07/11/2011 RICK ALBERTO, JESSICA Sabillon 300.00 ANXIETY STATE UNSPECIFIED 07/11/2011 MADL DIRECTOR SUPPLIER QUALITY, DARIAN L 300.00 ANXIETY STATE UNSPECIFIED 07/11/2011 VA DIRECTOR SUPPLIER QUALITY, MISA 300.00 ANXIETY STATE UNSPECIFIED 07/11/2011 RICK ALBERTO, JESSICA Sabillon 300.00 ANXIETY STATE UNSPECIFIED 07/11/2011 VA DIRECTOR SUPPLIER QUALITY, MISA 300.00 ANXIETY STATE UNSPECIFIED 07/11/2011 MADL DIRECTOR SUPPLIER QUALITY, DARIAN L 300.00 ANXIETY STATE UNSPECIFIED 07/11/2011 FLOYD DIRECTOR SUPPLIER QUALITY, ANGEL R 300.00 ANXIETY STATE UNSPECIFIED 07/11/2011 MADL DIRECTOR SUPPLIER QUALITY, DARIAN L 300.00 ANXIETY STATE UNSPECIFIED 07/11/2011 VA DIRECTOR SUPPLIER QUALITY, MISA 300.00 ANXIETY STATE UNSPECIFIED 07/11/2011 MADL DIRECTOR SUPPLIER QUALITY, DARIAN L 300.00 ANXIETY STATE UNSPECIFIED 07/11/2011 VA DIRECTOR SUPPLIER QUALITY, MISA 300.00 ANXIETY STATE UNSPECIFIED 07/11/2011 300.00 [...] PLANTAR FASCIAL FIBROMATOSIS 07/18/2011 NORA LEONARDO DO K 728.71 PLANTAR FASCIAL FIBROMATOSIS 07/18/2011 LEONARDO TREVOR BOATENGA K 728.71 PLANTAR FASCIAL FIBROMATOSIS 07/18/2011 LEONARDO TREVOR BOATENGA K 728.71 PLANTAR FASCIAL FIBROMATOSIS 07/18/2011 BALTA PEDRAZA MD 728.71 PLANTAR FASCIAL FIBROMATOSIS 07/18/2011 MISA DE DIOS APRN 728.71 PLANTAR FASCIAL FIBROMATOSIS 07/18/2011 VA COOPER MISA 728.71 PLANTAR FASCIAL FIBROMATOSIS 07/18/2011 JEREMIE ALEX DDS 728.71 PLANTAR FASCIAL FIBROMATOSIS 07/18/2011 VA COOPER MISA 728.71 PLANTAR FASCIAL FIBROMATOSIS 07/18/2011 VA DIRECTOR SUPPLIER QUALITY, MISA 728.71 PLANTAR FASCIAL FIBROMATOSIS 07/18/2011 EVAL NATHALY COOPERWNYA L 728.71 PLANTAR FASCIAL FIBROMATOSIS 07/18/2011 LEONARDO TREVOR BOATENGA K 728.71 PLANTAR FASCIAL FIBROMATOSIS 07/18/2011 LEONARDO DONORA K 728.71 PLANTAR FASCIAL FIBROMATOSIS 07/18/2011 LEONARDO DOTREVORA K 728.71 PLANTAR FASCIAL FIBROMATOSIS 07/18/2011 VA DIRECTOR SUPPLIER QUALITY, MISA 728.71 PLANTAR FASCIAL FIBROMATOSIS 07/18/2011 NATHALY HELTON APRNWNYA L 728.71 PLANTAR FASCIAL FIBROMATOSIS 07/18/2011 RICK ALBERTO, JESSICA Sabillon 728.71 PLANTAR FASCIAL FIBROMATOSIS 07/18/2011 NATHALY HELTON APRNWNYA L 728.71 PLANTAR FASCIAL FIBROMATOSIS 07/18/2011 VA KENNETH MISA 728.71 PLANTAR FASCIAL FIBROMATOSIS 07/18/2011 RICK ALBERTO, JESSICA Sabillon 728.71 PLANTAR FASCIAL FIBROMATOSIS 07/18/2011 VA DIRECTOR SUPPLIER QUALITY, MISA 728.71 PLANTAR FASCIAL FIBROMATOSIS 07/18/2011 XU HLETON APRNNYA L 728.71 PLANTAR FASCIAL FIBROMATOSIS 07/18/2011 ANGEL BARRIENTOS APRN 728.71 PLANTAR FASCIAL FIBROMATOSIS 07/18/2011 DANIE COOPER DARIAN L 728.71 PLANTAR FASCIAL FIBROMATOSIS 07/18/2011 VA COOPER MISA 728.71 PLANTAR FASCIAL FIBROMATOSIS 07/18/2011 DANIE COOPER DARIAN L 728.71 PLANTAR FASCIAL FIBROMATOSIS 07/18/2011 VA DIRECTOR SUPPLIER QUALITY, MISA 728.71 PLANTAR FASCIAL FIBROMATOSIS 07/18/2011 728.71 [...] JESSICA Sabillon 300.02 AN GEN ANXIETY 07/29/2011 JESSICA CABRERA PHD 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 07/29/2011 RICK ALBERTO, JESSICA A 300.02 AN GEN ANXIETY 07/29/2011 JESSICA [...] JESSICA Sabillon 300.02 AN GEN ANXIETY 07/29/2011 BRIANDA [place] APRN 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 07/29/2011 BRIANDA [place] APRN 300.02 AN GEN ANXIETY 07/29/2011 LEONARDO TREVOR BOATENGA K 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 07/29/2011 NORA LEONARDO DO K 300.02 AN GEN ANXIETY 07/29/2011 LEONARDO TREVOR BOATENGA K 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 07/29/2011 TREVOR LEONARDO DOA K 300.02 AN GEN ANXIETY 07/29/2011 LEONARDO TREVOR BOATENGA K 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 07/29/2011 TREVOR LEONARDO DOA K 300.02 AN GEN ANXIETY 07/29/2011 BALTA [...] COOPER MISA 300.02 AN GEN ANXIETY 07/29/2011 DANIE DIRECTOR SUPPLIER QUALITYRAMON BalA L 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 07/29/2011 RAMON HELTON APRNA L 300.02 AN GEN ANXIETY 07/29/2011 LEONARDO DOTREVORA K 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 07/29/2011 LEONARDO DO NORA K 300.02 AN GEN ANXIETY 07/29/2011 LEONARDO DOTREVORA K 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 07/29/2011 LEONARDO DO NORA K 300.02 AN GEN ANXIETY 07/29/2011 LEONARDO DOTREVORA K 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 07/29/2011 LEONARDO NORA K 300.02 AN GEN ANXIETY 07/29/2011 VA DIRECTOR SUPPLIER QUALITY, MISA 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 07/29/2011 VA DIRECTOR SUPPLIER QUALITY, MISA 300.02 AN GEN ANXIETY 07/29/2011 DANIE DIRECTOR SUPPLIER QUALITYRAMONA L 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 07/29/2011 EVAL DIRECTOR SUPPLIER QUALITY, DARIAN L 300.02 AN GEN ANXIETY 07/29/2011 RICK PHD, JESSICA A 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 07/29/2011 RICK PHD, JESSICA A 300.02 AN GEN ANXIETY 07/29/2011 EVAL RAMON COOPERA L 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 07/29/2011 MADL DIRECTOR SUPPLIER QUALITYRAMONA L 300.02 AN GEN ANXIETY 07/29/2011 VA DIRECTOR SUPPLIER QUALITY MISA 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 07/29/2011 VA DIRECTOR SUPPLIER QUALITY MISA 300.02 AN GEN ANXIETY 07/29/2011 RICK PHD, JESSICA A 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 07/29/2011 RICK PHD, JESSICA A 300.02 AN GEN ANXIETY 07/29/2011 VA DIRECTOR SUPPLIER QUALITY, MISA 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 07/29/2011 VA DIRECTOR SUPPLIER QUALITY MISA 300.02 AN GEN ANXIETY 07/29/2011 MADL DIRECTOR SUPPLIER QUALITY, DARIAN L 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 07/29/2011 RAMON HELTON APRNA L 300.02 AN GEN ANXIETY 07/29/2011 FREDERIC BARRIENTOS APRNINA R 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 07/29/2011 FLOYD COOPER ANGEL R 300.02 AN GEN ANXIETY 07/29/2011 XU HELTON APRNNYA L 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 07/29/2011 EVAL DIRECTOR SUPPLIER QUALITY, DARIAN L 300.02 AN GEN ANXIETY 07/29/2011 VA COOPER MISA 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 07/29/2011 VA COOPER MISA 300.02 AN GEN ANXIETY 07/29/2011 XU HELTON [...] [place] APRN 724.2 BACK PAIN, LOWER [facility] J[facility]ICA A 462 Pharyngitis Acute 08/26/2011 [facility], JESSICA A 724.2 BACK PAIN, LOWER 08/26/2011 [facility] PHD, JESSICA A 462 Pharyngitis Acute 08/26/2011 [facility] PHD, JESSICA A 724.2 BACK PAIN, LOWER 08[facility]26/[facility] J[facility] A 462 Pharyngitis Acute 08/26/2011 [facility] PHD, JESSICA Sabillon 724.2 BACK PAIN, LOWER 08/26/2011 BRIANDA [place] APRN 462 Pharyngitis Acute 08/26/2011 BRIANDA [place] APRN 724.2 BACK PAIN, LOWER 08/26/2011 [facility] JESSICA A 462 Pharyngitis Acute 08/26/2011 [facility] PHD, JESSICA A 724.2 BACK PAIN, LOWER 08/26/2011 VALERIANO SEYMOUR, DOMINIC M 462 Pharyngitis Acute 08/26/2011 VALERIANO SEYMOUR, DOMINIC Iverson 724.2 BACK PAIN, LOWER 08/26/2011 VALERIANO SEYMOUR, DOMINIC M 462 Pharyngitis Acute 08/26/2011 VALERIANO SEYMOUR, DOMINIC Iverson 724.2 lower back pain 08/26/2011 BO[facility] PHD, JESSICA A 462 Pharyngitis Acute 08/26/2011 [facility] PHD, JESSICA A 724.2 lower back [...] MD 724.2 lower back pain 08/26/2011 VA DIRECTOR SUPPLIER QUALITY, MISA 462 Pharyngitis Acute 08/26/2011 VA DIRECTOR SUPPLIER QUALITY, MISA 724.2 lower back pain 08/26/2011 VA DIRECTOR SUPPLIER QUALITY, MISA 462 Pharyngitis Acute 08/26/2011 VA DIRECTOR SUPPLIER QUALITY, MISA 724.2 lower back pain 08/26/2011 WHITE DDS, JEREMIE D 462 Pharyngitis Acute 08/26/2011 WHITE DDS, JEREMIE D 724.2 lower back pain 08/26/2011 VA DIRECTOR SUPPLIER QUALITY, MISA 462 Pharyngitis Acute 08/26/2011 VA DIRECTOR SUPPLIER QUALITY, MISA 724.2 lower back pain 08/26/2011 VA DIRECTOR SUPPLIER QUALITY, MISA 462 Pharyngitis Acute 08/26/2011 VA DIRECTOR SUPPLIER QUALITY, MISA 724.2 lower back pain 08/26/2011 MADL DIRECTOR SUPPLIER QUALITY, DARIAN L 462 Pharyngitis Acute 08/26/2011 MADL DIRECTOR SUPPLIER QUALITY, DARIAN L 724.2 lower back pain 08/26/2011 LEONARDO DO, NORA K 462 Pharyngitis Acute 08/26/2011 LEONARDO DO, NORA K 724.2 lower back pain 08/26/2011 LEONARDO DO, NORA K 462 Pharyngitis Acute 08/26/2011 LEONARDO DO, NORA K 724.2 lower back pain 08/26/2011 LEONARDO DO, NORA K 462 Pharyngitis Acute 08/26/2011 LEONARDO DO, NORA K 724.2 lower back pain 08/26/2011 [facility] [facility]AL[facility], MISA 462 Pharyngitis Acute 08/26/2011 [facility]PPLIER QUALITY, MISA 724.2 lower back pain 08/26/2011 [facility] DIRECTOR SUPPLIER QUALITY, DARIAN L 462 Pharyngitis Acute 08/26/2011 [facility] DIRECTOR SUPPLIER QUALITY, DARIAN L 724.2 lower back pain 08/26/2011 RICK PHD, JESSICA A 462 Pharyngitis Acute 08/26/2011 RICK PHD, JESSICA A 724.2 lower back pain 08/26/2011 [facility] DIRECTOR SUPPLIER QUALITY, DARIAN L 462 Pharyngitis Acute 08/26/2011 [facility] DIRECTOR SUPPLIER QUALITY, DARIAN L 724.2 lower back pain 08/26/2011 [facility]P[employer] QUALITY, MISA 462 Pharyngitis Acute 08/26/2011 [facility]P[employer] QUALITY, MISA 724.2 lower back pain 08/26/2011 RICK PHD, JESSICA A 462 Pharyngitis Acute 08/26/2011 [facility] 724.2 lower back pain 08/26/2011 [facility]PPL[employer] QUALITY, MISA 462 Pharyngitis Acute 08/26/2011 [facility]PPL[employer] QUALITY, MISA 724.2 lower back pain 08/26/2011 [facility] DIRECTOR SUPPLIER QUALITY, DARIAN L 462 Pharyngitis Acute 08/26/2011 [facility] DIRECTOR SUPPLIER QUALITY, DARIAN L 724.2 lower back pain 08/26/2011 [facility] DIRECTOR SUPPLIER QUALITY, ANGEL R 462 Pharyngitis Acute 08/26/2011 [facility] DIRECTOR SUPPLIER QUALITY, ANGEL R 724.2 lower back pain 08/26/2011 [facility] DIRECTOR SUPPLIER QUALITY, DARIAN L 462 Pharyngitis Acute 08/26/2011 [facility] DIRECTOR SUPPLIER QUALITY, DARIAN L 724.2 lower back pain 08/26/2011 [facility] QUALITY, MISA 462 Pharyngitis Acute 08/26/2011 [facility] SUPPLIER QUALITY, MISA 724.2 lower back pain 08/26/2011 [facility] DIRECTOR SUPPLIER QUALITY, DARIAN L 462 Pharyngitis Acute 08/26/2011 [facility] DIRECTOR SUPPLIER QUALITY, DARIAN L 724.2 lower back pain 08/26/2011 [facility]PPL[employer] QUALITY, MISA 462 Pharyngitis Acute 08/26/2011 [facility] [employer]PPL[employer] QUALITY, MISA 724.2 lower back pain 08/26/2011 462 Pharyngitis Acute 08/26/2011 724.2 BACK PAIN, LOWER 08/28/2011 BALBINA DELACRUZ APRN 296.89 MO BIPOLAR II 08/28/2011 296.89 MO BIPOLAR II 08/28/2011 296.89 MO BIPOLAR II 08/28/2011 296.89 MO BIPOLAR II 08/28/2011 296.89 MO BIPOLAR II 08/28/2011 296.89 MO BIPOLAR II 08/28/2011 296.89 MO BIPOLAR II 08/28/2011 JOAO ALBERT APRN A 296.89 MO BIPOLAR II 08/28/2011 BRIANDA [...] MD 296.89 MO BIPOLAR II 08/28/2011 [facility] [facility], MISA 296.89 MO BIPOLAR II 08/28/2011 [facility]PPL[employer] QUALITY, MISA 296.89 MO BIPOLAR II 08/28/2011 JEREMIE ALEX DDS 296.89 MO BIPOLAR II 08/28/2011 [facility] [employer] [employer] QUALITY, MISA 296.89 MO BIPOLAR II 08/28/2011 [facility] [employer] QUALITY, MISA 296.89 MO BIPOLAR II 08/28/2011 DARIAN HELTON APRN 296.89 MO BIPOLAR II 08/28/2011 LEONARDO DO NORA K 296.89 MO BIPOLAR II 08/28/2011 LEONARDO DO NORA K 296.89 MO BIPOLAR II 08/28/2011 LEONARDO DO NORA K 296.89 MO BIPOLAR II 08/28/2011 [facility]PPL[employer] QUALITY, MISA 296.89 MO BIPOLAR II 08/28/2011 [facility] DIRECTOR SUPPLIER QUALITY, DARIAN L 296.89 MO BIPOLAR II 08/28/2011 RICK ALBERTO, JESSICA Sabillon 296.89 MO BIPOLAR II 08/28/2011 [facility] DIRECTOR SUPPLIER QUALITY, DARIAN L 296.89 MO BIPOLAR II 08/28/2011 [facility]P[employer] QUALITY, MISA 296.89 MO BIPOLAR II 08/28/2011 RICK ALBERTO, JESSICA Sabillon 296.89 MO BIPOLAR II 08/28/2011 [facility]P[employer] [facility]AL[facility], MISA 296.89 MO BIPOLAR II 08/28/2011 [facility] DIRECTOR SUPPLIER QUALITY, DARIAN L 296.89 MO BIPOLAR II 08/28/2011 ANGEL BARRIENTOS APRN R 296.89 MO BIPOLAR II 08/28/2011 [facility] DIRECTOR SUPPLIER QUALITY, DARIAN L 296.89 MO BIPOLAR II 08/28/2011 [facility] [facility], MISA 296.89 MO BIPOLAR II 08/28/2011 MADL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 07/27/2010 18:47:00 Document Registration
[2018-11-02] MEDS ORDERED: IBUPROFEN 800 MG (MOTRIN) TAB PO STA (22:18)
[2018-11-02] MEDS ORDERED: AMOX500C2 PO (22:20)
--- NOTE | 2018-11-02 22:22 | ED EENT ---
History of Present Illness General Chief Complaint: Dental Problems/Pain Stated Complaint: DENTAL PAIN Nursing Triage Note: Patient ambulatory to ER FT1 with complaint of dental pain that began today. Pain is present to the left lower jaw with swelling present. Patient has been taking tylenol today for the pain. She states she has had a fever. History of Present Illness Date Seen by Provider: Nov 02, 2018 Time Seen by Provider: 22:10 Initial Comments 38-year-old female presents for left lower jaw pain. She states the pain began approximately 2 hours ago she is taking Tylenol once for the symptoms. She has not seen a dentist in sometime as she owes money to the [facility]. She went to work for a few hours and came here, requesting note to excuse her from work tonight. Explained this provider will not give note for dental pain without fever or abscess, she can seek healthcare before or after work. Timing/Duration: abrupt Severity: moderate Location: mouth Prearrival Treatment: over the counter meds (Tylenol) Associated Symptoms: denies symptoms Allergies and Home Medications Allergies Coded Allergies: No Known Drug Allergies (Unverified , 07/27/10) Home Medications Amoxicillin 500 Mg Capsule, 500 MG PO TID Prescribed by: NANCY SOTO on 11/02/182219 Cyclobenzaprine HCl 10 Mg Tablet, 10 MG PO Q8H PRN for SPASMS Prescribed by: KARLA VIRAMONTES on 10/08/182109 D-Methorphan Hb/P-Epd HCl/Bpm 118 Ml Syrup, 5 ML PO Q4H PRN for CONGESTION Prescribed by: NOBLE GOMEZ on 10/26/182019 Hydrocodone Bit/Acetaminophen 1 Tab Tab, 1 EACH PO Q4-6HR PRN for PAIN-MODERATE Prescribed by: KARLA VIRAMONTES on 10/08/182109 Naproxen 500 Mg Tablet, 500 MG PO BID PRN for PAIN-SEVERE Prescribed by: NOBLE GOMEZ on 10/19/182215 Patient Home Medication List Home Medication List Reviewed: Yes Review of Systems Review of Systems Constitutional: no symptoms reported, see HPI Mouth: see HPI, loose teeth, pain, swelling All Other Systems Reviewed Negative Unless Noted: Yes Past Crbssen-Iisybh-Mqwydk Hx Past Med/Social Hx: Reviewed Nursing Past Med/Soc Hx Patient Social History Alcohol Use: Denies Use Number of Drinks Today: AA Alcohol Beverage of Choice: Beer Recreational Drug Use: No (SMOKES OCCASIONALLY) Drug of Choice: cannibus, meth Smoking Status: Never a Smoker 2nd Hand Smoke Exposure: No Recent Foreign Travel: No Contact w/Someone Who Travel: No Recent Infectious Disease Expo: No Recent Hopitalizations: No Physical Abuse: No Sexual Abuse: No Mistreated: No Fear: No Immunizations Up To Date Tetanus Booster (TDap): Unknown PED Vaccines UTD: Yes Date of Influenza Vaccine: Jan 05, 2012 Seasonal Allergies Seasonal Allergies: No Past Medical History Surgeries: Yes ( X 2) Appendectomy, Section, Gallbladder, Tubal Ligation Respiratory: Yes ("WEATHER-INDUCED ASTHMA" ) Asthma Cardiac: No Neurological: Yes Headaches /Migraines Last Menstrual Period: Oct 12, 2018 Reproductive Disorders: No 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 oz. 99.415225nq; 33.45 BMI Method:Stated General Appearance: WD/WN, no apparent distress Eyes: bilateral eye normal inspection, bilateral eye PERRL, bilateral eye EOMI Ears: bilateral ear auricle normal, bilateral ear canal normal, bilateral ear TM normal Nose: normal inspection; No discharge Mouth/Throat: pharynx normal, dental tenderness (left lower molars), mandibular swelling Neck: non-tender, full range of motion, supple, normal inspection, lymphadenopathy (L) Cardiovascular: normal peripheral pulses, regular rate, rhythm Respiratory: chest non-tender, lungs clear, normal breath sounds Neurologic/Psychiatric: no motor/sensory deficits, alert, normal mood/affect, oriented x 3 Skin: normal color, warm/dry Progress/Results/Core Measures Results/Orders My Orders Orders - NANCY SOTO Ibuprofen Tablet (Motrin Tablet) (11/02/18 22:18) Vital Signs/I&O 11/02/18 11/02/18 22:02 22:26 Temp 98.4 98.4 Pulse 75 75 Resp 18 18 B/P (MAP) 132/97 (109) 132/97 (109) Pulse Ox 99 99 O2 Delivery Room Air Blood Pressure Mean: 109 Departure Impression Primary Impression: Pain, dental Disposition: HOME, SELF-CARE Condition: Improved Departure-Patient Inst. Decision time for Depature: 22:20 Referrals: [facility] (PCP/Family) Primary Care Physician Patient Instructions: Dental Pain (DC) Add. Discharge Instructions: Alternate between ibuprofen 600 mg and Tylenol 650 mg every 4 hours for pain. Warm moist compressions to left cheek and jaw. Diet as tolerated. Follow-up with a dentist. Take antibiotics as prescribed. Return to emergency department for new, urgent health care needs. All discharge instructions reviewed with patient and/or family. Voiced understanding. Scripts Amoxicillin (Amoxicillin) 500 Mg Capsule 500 MG PO TID, #21 CAP 0 Refills Prov: NANCY SOTO 11/02/18 NANCY SOTO Nov 02, 2018 22:22
[2018-11-02 22:26] VITALS: BP 132/97
== END 2018-11-02 22:27 | disposition home or self-care (01) ==
LOC: EDUNIT# 21:54 → ER 21:56
DX: K08.89 Other specified disorders of teeth and supporting structures (principal); J45.909 Unspecified asthma, uncomplicated; G43.909 Migraine, unspecified, not intractable, without status migrainosus; F41.9 Anxiety disorder, unspecified; Z98.51 Tubal ligation status; Z90.49 Acquired absence of other specified parts of digestive tract
CPT/HCPCS: 99283

== ENCOUNTER 2018-12-24 20:49 | Emergency (ER) | payer BC ==
[~2018-12-24] VITALS: Ht 172 cm; Wt 101.0 kg
[2018-12-24] MEDS ORDERED: KETOROLAC 30 MG/ML VIAL IM ONE (21:15)
[2018-12-24] MEDS ORDERED: ORPHENADRINE 60 MG/2 ML (NORFLEX) AMP IM ONE (21:15)
[2018-12-24] MEDS ORDERED: METH-313 PO (21:15)
--- NOTE | 2018-12-24 21:15 | ED Back Pain ---
General Chief Complaint: Back Problems Stated Complaint: PAIN BETWEEN SHOULDER BLADES/NECK PAIN Nursing Triage Note: ambulated to triage room. C/O rt scapula, base of neck pain. States she thinks it occurred a week ago when she was at work and stepped on a product and was juan luis. Has been taking tylenol and Ibuprophen without relief Nursing Sepsis Screen: No Definite Risk Source of Information: Patient Exam Limitations: No Limitations History of Present Illness Date Seen by Provider: Dec 24, 2018 Time Seen by Provider: 21:13 Initial Comments To ER with right medial scapular pain for about a week after she twisted after she slipped on object at work. She's been trying ibuprofen and naproxen without improvement. Location: T-Spine Timing/Duration: 1-2 Days Severity: Moderate Associated Symptoms: denies symptoms Allergies and Home Medications Allergies Coded Allergies: No Known Drug Allergies (Unverified , 07/27/10) Home Medications Amoxicillin 500 Mg Capsule, 500 MG PO TID Prescribed by: NANCY SOTO on 11/02/182219 Cyclobenzaprine HCl 10 Mg Tablet, 10 MG PO Q8H PRN for SPASMS Prescribed by: KARLA VIRAMONTES on 10/08/182109 D-Methorphan Hb/P-Epd HCl/Bpm 118 Ml Syrup, 5 ML PO Q4H PRN for CONGESTION Prescribed by: NOBLE GOMEZ on 10/26/182019 Hydrocodone Bit/Acetaminophen 1 Tab Tab, 1 EACH PO Q4-6HR PRN for PAIN-MODERATE Prescribed by: KARLA VIRAMONTES on 10/08/182109 Methocarbamol 750 Mg Tablet, 750 MG PO Q6H PRN for PAIN-MODERATE Prescribed by: NOBLE GOMEZ on 12/24/182114 Naproxen 500 Mg Tablet, 500 MG PO BID PRN for PAIN-SEVERE Prescribed by: NOBLE GOMEZ on 10/19/18 221 Patient Home Medication List Home Medication List Reviewed: Yes Review of Systems Constitutional: see HPI EENTM: see HPI Respiratory: no symptoms reported Cardiovascular: no symptoms reported Genitourinary: no symptoms reported Musculoskeletal: see HPI Skin: no symptoms reported Psychiatric/Neurological: No Symptoms Reported Past Ugvheyb-Kgeatr-Hrpqik Hx Patient Social History Alcohol Use: Denies Use Number of Drinks Today: AA Alcohol Beverage of Choice: Beer Recreational Drug Use: No (SMOKES OCCASIONALLY) Drug of Choice: cannibus, meth Smoking Status: Never a Smoker 2nd Hand Smoke Exposure: No Recent Foreign Travel: No Contact w/Someone Who Travel: No Recent Infectious Disease Expo: No Recent Hopitalizations: No Physical Abuse: No Sexual Abuse: No Mistreated: No Fear: No Immunizations Up To Date Tetanus Booster (TDap): Unknown PED Vaccines UTD: Yes Date of Influenza Vaccine: Jan 05, 2012 Seasonal Allergies Seasonal Allergies: No Past Medical History Surgeries: Yes ( X 2) Appendectomy, Section, Gallbladder, Tubal Ligation Respiratory: Yes ("WEATHER-INDUCED ASTHMA" ) Asthma Cardiac: No Neurological: Yes Headaches /Migraines Reproductive Disorders: No 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 oz. 99.906696gr; 34.00 BMI Method:Stated General Appearance: No Apparent Distress, WD/WN Neck: Full Range of Motion, Normal Inspection Respiratory: Normal Breath Sounds, No Accessory Muscle Use, No Respiratory Distress Gastrointestinal: Non Tender, Soft Neurologic/Psychiatric: Alert, Oriented x3 Skin: Normal Color, Warm/Dry Right medial scapula tender to palpation Progress/Results/Core Measures Results/Orders My Orders Orders - NOBLE GOMEZ APRN Ketorolac Injection (Toradol Injection) (12/24/18 21:15) Orphenadrine Injection (Norflex Injectio (12/24/18 21:15) Medications Given in ED Current Medications Medications Dose Ordered Sig/Puneet Route Start Time Stop Time Status Last Admin Dose Admin Ketorolac Tromethamine 60 mg ONCE ONCE IM 12/24/18 21:15 12/24/18 21:16 DC 12/24/18 21:10 60 MG Orphenadrine Citrate 60 mg ONCE ONCE IM 12/24/18 21:15 12/24/18 21:16 DC 12/24/18 21:10 60 MG Vital Signs/I&O 9/19/19 20:56 Temp 36.0 Pulse 80 Resp 16 B/P (MAP) 126/88 (101) Pulse Ox 100 Blood Pressure Mean: 101 Departure Communication (Admissions) Report injection using lidocaine 2% with epinephrine 4 mL to the quarter sized area of discomfort at the costovertebral region on the right Impression Primary Impression: Muscle strain Disposition: 01 HOME, SELF-CARE Condition: Stable Departure-Patient Inst. Decision time for Depature: 21:14 Referrals: [facility] (PCP/Family) Primary Care Physician Patient Instructions: Muscle Strain (DC) Add. Discharge Instructions: 1. Follow-up with your doctor next week 2. Return to ER for any concerns All discharge instructions reviewed with patient and/or family. Voiced understanding. Scripts Methocarbamol (Robaxin-750) 750 Mg Tablet 750 MG PO Q6H PRN for PAIN-MODERATE, #10 TAB Prov: NOBLE GOMEZ APRN 12/24/18 Work/School Note: Work Release Form Date Seen in the Emergency Department: Dec 24, 2018 Return to Work: Dec 25, 2018 Other Restrictions Listed Below: No repetitive use of right arm until released by occupational health Images Torso/Trunk 1 - NOBLE GOMEZ APRN Dec 24, 2018 21:15
[2018-12-24 21:47] VITALS: BP 125/85
== END 2018-12-24 21:49 | disposition home or self-care (01) ==
LOC: EDUNIT# 20:49 → ER 20:50
DX: S46.911A Strain of unspecified muscle, fascia and tendon at shoulder and upper arm level, right arm, initial encounter (principal); J45.909 Unspecified asthma, uncomplicated; G43.909 Migraine, unspecified, not intractable, without status migrainosus; F41.9 Anxiety disorder, unspecified; D64.9 Anemia, unspecified; Z90.49 Acquired absence of other specified parts of digestive tract; Z98.51 Tubal ligation status; X50.1XXA Overexertion from prolonged static or awkward postures, initial encounter; W18.41XA Slipping, tripping and stumbling without falling due to stepping on object, initial encounter; Y92.59 Other trade areas as the place of occurrence of the external cause
CPT/HCPCS: 99284

== ENCOUNTER 2021-05-28 22:28 | Emergency (ER) | payer SELFPAY ==
[~2021-05-28] VITALS: Ht 178 cm; Wt 104.3 kg
[~2021-05-28 22:28] MED LIST changes: +CYCL10TA25 PO; +METH-313 PO
[2021-05-28 22:38] VITALS: BP 155/92
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
[2021-05-28] MEDS ORDERED: KETO10TA PO (22:58)
[2021-05-28] MEDS ORDERED: PANT20TA2 PO (22:58)
[2021-05-28] MEDS ORDERED: PANTOPRAZOLE 20 MG TABLET (PROTONIX) PO ONE (23:00)
[2021-05-28] MEDS ORDERED: KETOROLAC 30 MG/ML VIAL IVP ONE (23:00)
== END 2021-05-28 23:18 | disposition home or self-care (01) ==
LOC: EDUNIT# 22:28 → ER 22:33
DX: S06.0X0A Concussion without loss of consciousness, initial encounter (principal); S46.912A Strain of unspecified muscle, fascia and tendon at shoulder and upper arm level, left arm, initial encounter; J45.909 Unspecified asthma, uncomplicated; V87.7XXA Person injured in collision between other specified motor vehicles (traffic), initial encounter
CPT/HCPCS: 99284